=== PATIENT | female | born 1940 | race Caucasian/White ===

== ENCOUNTER → 2018-01-23 10:39 | Outpatient (CLI) | payer MEDICARE, SELFPAY ==
[2018-01-23 13:25] LABS: Anion Gap 10 (5-15); BUN 14 mg/dL (7-18); Calcium,Total 8.5 mg/dL (8.5-10.1); Chloride 103 mmol/L (98-107); Cholesterol 199 mg/dL (200); Creatinine, Serum 0.94 mg/dL (0.55-1.02); EST Glomerular Filtration Rate 62 mL/min (>60); Est Glom Filt Rate - Afr Amer 75 mL/min (>60); Glucose 83 mg/dL (74-106); High Density Lipoprotein 44 mg/dL; Potassium 3.5 mmol/L (3.5-5.1); Sodium Level 140 mmol/L (136-145); Triglycerides 209 mg/dL; Very Low Density Lipoprotein 42 mg/dL (5-40)
== END ==
PROVIDERS: Family Provider Family Medicine; PCP Family Medicine; Visit Provider Family Medicine
DX: I10 Essential (primary) hypertension (principal)
CPT/HCPCS: 36415; 80048; 80061

== ENCOUNTER 2018-04-01 10:22 | Emergency (ER) | payer MEDICARE, SELFPAY ==
[2018-04-01 10:23] VITALS: BP 159/93; PULSE 83; RESP 16; TEMP 36.8; O2SAT 98; BMI 24.2
--- NOTE | 2018-04-01 10:36 | ED.VISSUMM ---
- ER Visit Summary Date of Service: 04/01/18 Chief Complaint: Headache, shaky, weakness History of Present Illness: The patient is a 77 F who presents with all the above symptoms. She states that she woke up this morning with the symptoms. She took her blood pressure at home and it was 193/101. She took her home medication of losartan and went [facility]. She states she felt a little bit better but she is not back to 100%. She denies a cough or fever. She has been eating and drinking well. Denies any dysuria or any other symptoms. Her headache is now gone. Physical Examination: Vital signs reviewed. HEENT exam unremarkable. Heart is regular rate and rhythm without murmurs. Lungs are clear to auscultation. Abdomen is soft and nontender. Extremities reveal no edema. Skin exam normal. Neurologic exam normal. Test Results: Laboratory studies are unremarkable. Urinalysis negative Emergency Department Course and Treatment: Patient was given Tylenol. She states that she feels improved. I am unclear the etiology of her symptoms. She is ambulating significantly well and has no neurologic deficits. I feel she can be discharged home. She will call her PCP tomorrow for follow-up Treatment Plan: [] Disposition: Discharge Impression: Weakness This note was generated with Lib[employer] dictation software. It may contain incorrect words, spelling, and punctuation that were not noted in review of the chart prior to signing ED Disposition - Plan for ED Patient: Chief Complaint: Weakness Referrals: Kyara Odonnell MD [Primary Care Provider] -
[2018-04-01] MEDS: Acetaminophen 500 MG Tablet 1000 MG PO (10:46)
[2018-04-01 10:54] LABS: Color, Urine Yellow (Yellow); Glucose, Dipstick Normal (Normal); Ketone-Dipstick Negative (Negative); Leukocyte Esterase-Dipstick Negative /ul (Negative); Nitrite-Dipstick Negative (Negative); Occult Blood-Urine Negative /ul (Negative); Protein-Dipstick Negative (Negative); Urine Bilirubin Dipstick Negative (Negative); Urine Clarity Clear (Clear); Urine Urobilinogen Normal (Normal)
[2018-04-01 11:17] LABS: Anion Gap 7 (5-15); BUN 16 mg/dL (7-18); BUN/Creat Ratio 16.7 RATIO (10-20); Calcium,Total 8.6 mg/dL (8.5-10.1); Chloride 108 mmol/L (98-107); Creatinine, Serum 0.96 mg/dL (0.55-1.02); EST Glomerular Filtration Rate 60 mL/min (>60); Est Glom Filt Rate - Afr Amer 73 mL/min (>60); Estimated Creatinine Clearance 43.51 ml/min; Glucose 114 mg/dL (74-106); Sodium Level 141 mmol/L (136-145)
[2018-04-01 11:36] LABS: Absolute Lymphocyte Count 1.42 X10^3/ul (0.83-4.51); Absolute Neutrophil Count 4.3 X10^3/uL (2.0-7.7); Basophil# 0.03 X10^3/uL; Basophil% 0.5 % (0-1); Eosinophil# 0.06 X10^3/uL; Eosinophils% 0.9 % (0-5); Hemoglobin 12.9 g/dl (12.0-15.0); Lymphocyte # 1.42 X10^3/ul (4.0); Lymphocyte % 22.4 % (19-41); Mean Corp Hgb Conc 33.1 g/gl (32-36); Mean Corpuscular Hgb 30.5 pg (27.0-32.0); Mean Corpuscular Volume 92.2 fL (81-99); Mean Platelet Vol. 9.6 fl (6.2-12.0); Monocyte# 0.49 X10^3/uL; Monocyte% 7.7 % (0-10); Neutrophil # 4.34 X10^3/uL (2.7-7.7); Neutrophil % 68.3 % (47-70); POSITIVE COUNT NO; POSITIVE DIFFERENTIAL NO; POSITIVE MORPHOLOGY NO; Platelet Count 234 K/mm3 (150-450); RBC Distribution Width CV 13.2 % (11.6-14.6); RBC Distribution Width SD 43.9 fl (35.1-43.9); Red Blood Count 4.23 M/mm3 (4.2-5.4); White Blood Count 6.4 K/mm3 (4.4-11.0)
--- NOTE | 2018-04-01 11:48 | ED.DEP ---
ED Disposition - Plan for ED Patient: Disposition: Home or Assisted Living Chief Complaint: Weakness Instructions: ED Weakness [facility] Referrals: Kyara Odonnell MD [Primary Care Provider] -
[2018-04-01 11:54] VITALS: BP 117/67; PULSE 59; RESP 16; O2SAT 99
== END 2018-04-01 11:54 | disposition home or self-care (01) ==
PROVIDERS: Emergency Provider Emergency Medicine; Family Provider Family Medicine; PCP Family Medicine
DX: R53.1 Weakness (principal); I10 Essential (primary) hypertension
CPT/HCPCS: 36415; 80048; 81002; 85025; 99282

== ENCOUNTER → 2018-05-10 14:03 | Outpatient (CLI) | payer MEDICARE, SELFPAY ==
--- NOTE | 2018-05-10 14:07 | BI_ITS ---
MAMMOGRAPHY - BILATERAL SCREENING REASON FOR EXAM: Female, 77 years old. Routine annual screening examination. PERTINENT HISTORY: Aunt with breast cancer. TECHNIQUE: Digital bilateral breast sobia (3D mammographic acquisition) in the CC and MLO projections. 2-D mediolateral oblique (MLO) and craniocaudad (CC) views of both breasts were obtained. CAD: Full Field Digital Mammography with Computer Added Detection was performed. COMPARISON: Comparison is made with prior study dated March 17, 2017 and February 12, 2016. FINDINGS: Breast Composition: The breasts are heterogeneously dense, which may obscure small masses. There are no dominant masses or suspicious calcifications. Stable benign appearing bilateral calcifications. No other significant abnormalities are identified. There has been no significant change since the prior study. BI/SCREENING MAMM (CAD), BILAT IMPRESSION: Stable bilateral screening mammogram. Yearly follow-up mammogram recommended. (A) ASSESSMENT CATEGORY: BIRADS Category 2: Benign. A letter regarding these results will be sent to the patient by the facility within 30 days. Approximately 10% of breast cancers are not detected by mammography. A normal mammogram should not delay biopsy of a clinically suspicious abnormality. [id number] Electronically Signed: Aren Meadows MD at 13:47 EDT Tel [phone], Service support ,
--- NOTE | 2018-05-10 14:11 | BD_ITS ---
STUDY: DUAL ENERGY X-RAY ABSORPTIOMETRY / DXA REASON FOR EXAM: Female, 77 years old. Surgical menopause at age 56. 1200 mg of calcium or multivitamin. Moderate exercise. Family history. TECHNIQUE: Bone Mineral Density (BMD) measurements of lumbar spine and bilateral hips were obtained. COMPARISON: November 15, 2011 FINDINGS: Lumbar Spine (L1-L4): g/cm2 (1.097) / T-score (-0.6) / Z-score (1.2) Findings are suggestive of normal bone density with a low fracture risk. Left Femur Total: g/cm2 (0.881) / T-score (-1.0) / Z-score (0.7) Left Femoral Neck: g/cm2 (0.776) / T-score (-1.9) / Z-score (0.0) Right Femur Total: g/cm2 (0.933) / T-score (-0.6) / Z-score (1.2) Right Femoral Neck: g/cm2 (0.814) / T-score (-1.6) / Z-score (0.3) The T-Scores on the most recent prior examination were: Lumbar Spine (L1-L4): There has been improvement of bone density since the previous examination of 2.6%. Left Femur Total: There is decrease in bone mineral density of -3.6%. Right Femur Total: There is a decrease in bone marrow density of -3.1%. BD/Dexa Bone Density Study IMPRESSION: The patient is considered osteopenic as outlined below according to World [employer]rinivas[employer] Organization (WHO) criteria with a moderate fracture risk. There has been improvement of bone density of the lumbar spine since the previous examination with worsening bone mineral density of the bilateral hips. Reference Information: The T-score is the number of standard deviations above or below the standard which is normal for young adults at their peak bone mineral density. The World Health Organization (WHO) interprets the T-scores as follows: Above -1 Normal bone density Between -1 and -2.5 Osteopenia Equal to / or below -2.5 Osteoporosis As a practical clinical guideline, osteopenia may be graded as follows: Mild -1 through -1.5 Moderate -1.6 through -2.0 Severe -2.1 through -2.4 The Z-score is the number of standard deviations above or below age-matched controls. A Z-score of less than -1.5 would be considered abnormal. References: 1. NIH Osteoporosis and Related Bone Diseases http://www.osteo.org 2. International Society for Clinical Densitometry http://www.iscd.org 3. National Osteoporosis Foundation http://www.nof.org Electronically Signed: Celso Nice DO at 11:56 EDT Tel [phone], Service support ,
== END ==
PROVIDERS: Family Provider Family Medicine; PCP Family Medicine; Visit Provider Obstetrics & Gynecology
DX: Z12.31 Encounter for screening mammogram for malignant neoplasm of breast (principal); Z78.0 Asymptomatic menopausal state
CPT/HCPCS: 77063; 77067; 77080

== ENCOUNTER → 2019-01-08 10:03 | Outpatient (CLI) | payer MEDICARE, SELFPAY ==
[2019-01-08 12:22] LABS: Absolute Neutrophil Count 3.8 X10^3/uL (2.0-7.7); Basophil# 0.03 X10^3/uL; Basophil% 0.5 % (0-1); Eosinophils% 1.6 % (0-5); Hematocrit 41.4 % (37-47); Hemoglobin 13.3 g/dl (12.0-15.0); Lymphocyte % 27.2 % (19-41); Mean Corp Hgb Conc 32.1 g/gl (32-36); Mean Corpuscular Hgb 30.4 pg (27.0-32.0); Mean Corpuscular Volume 94.7 fL (81-99); Mean Platelet Vol. 10.1 fl (6.2-12.0); Monocyte# 0.57 X10^3/uL; Monocyte% 9.1 % (0-10); Neutrophil # 3.84 X10^3/uL (2.7-7.7); Neutrophil % 61.4 % (47-70); Platelet Count 247 K/mm3 (150-450); RBC Distribution Width CV 13.2 % (11.6-14.6); Red Blood Count 4.37 M/mm3 (4.2-5.4); White Blood Count 6.3 K/mm3 (4.4-11.0)
[2019-01-08 12:28] LABS: POSITIVE COUNT NO; POSITIVE DIFFERENTIAL NO; POSITIVE MORPHOLOGY NO
[2019-01-08 13:24] LABS: ALB/GLOB Ratio 1.4 RATIO (0.9-2.4); AST(SGOT) 18 U/L (15-37); Alanine Aminotransfer ALT/SGPT 25 U/L (13-56); Albumin, Serum 4.1 g/dL (3.2-5.0); Alkaline Phosphatase 78 U/L (45-117); Anion Gap 12 (5-15); BUN 19 mg/dL (7-18); BUN/Creat Ratio 18.6 RATIO (10-20); Calcium,Total 9.2 mg/dL (8.5-10.1); Chloride 106 mmol/L (98-107); Creatinine, Serum 1.02 mg/dL (0.55-1.02); EST Glomerular Filtration Rate 56 mL/min (>60); Est Glom Filt Rate - Afr Amer 68 mL/min (>60); Glucose 91 mg/dL (74-106); Protein, Total 7.1 g/dL (6.4-8.2); Sodium Level 144 mmol/L (136-145); Thyroid Stim Hormone (TSH) 1.42 uIU/mL (0.358-3.74)
== END ==
PROVIDERS: Family Provider Family Medicine; PCP Family Medicine; Visit Provider Family Medicine
DX: R53.81 Other malaise (principal); R53.83 Other fatigue
CPT/HCPCS: 36415; 80053; 84443; 85025

== ENCOUNTER → 2019-06-06 14:25 | Outpatient (CLI) | payer MEDICARE, SELFPAY ==
--- NOTE | 2019-06-06 14:28 | BI_ITS ---
MAMMOGRAPHY - BILATERAL SCREENING REASON FOR EXAM: Female, 78 years old. Routine annual screening examination. PERTINENT HISTORY: Aunt with breast cancer. TECHNIQUE: Digital bilateral breast gregory (3D mammographic acquisition) in the CC and MLO projections. 2-D mediolateral oblique (MLO) and craniocaudad (CC) views of both breasts were obtained. CAD: Full Field Digital Mammography with Computer Added Detection was performed. COMPARISON: Comparison is made with prior examination dated May 10, 2018 and March 17, 2017. FINDINGS: Breast Composition: The breasts are heterogeneously dense, which may obscure small masses. There are no dominant masses or suspicious calcifications. Stable benign-appearing scattered bilateral calcifications. No other significant abnormalities are identified. There has been no significant change since the prior study. BI/SCREEN MAMM (CAD) W/GREGORY BILAT IMPRESSION: Stable bilateral screening mammogram. Yearly follow-up mammogram recommended. (A) ASSESSMENT CATEGORY: BIRADS Category 2: Benign. A letter regarding these results will be sent to the patient by the facility within 30 days. Approximately 10% of breast cancers are not detected by mammography. A normal mammogram should not delay biopsy of a clinically suspicious abnormality. [id number] Electronically Signed: Aren Meadows, at 15:27 EDT , Service support ,
== END ==
PROVIDERS: Family Provider Family Medicine; PCP Family Medicine; Referring Provider Obstetrics & Gynecology; Visit Provider Obstetrics & Gynecology
DX: Z12.31 Encounter for screening mammogram for malignant neoplasm of breast (principal)
CPT/HCPCS: 77063; 77067

== ENCOUNTER → 2019-10-01 09:25 | Outpatient (CLI) | payer MEDICARE, SELFPAY ==
--- NOTE | 2019-10-01 09:28 | RAD_ITS ---
STUDY: X-RAY CHEST REASON FOR EXAM: Female, 78 years old. Hypoxia, dyspnea TECHNIQUE: PA and lateral views of the chest. COMPARISON: Prior study of 02/15/2014 FINDINGS: There is a calcified granuloma of the right lung base. There is no demonstrated pleural abnormality. Normal size heart. Normal mediastinum and laura. Normal visualized pulmonary arteries. There are calcified plaques of the aortic arch. There are diffuse degenerative changes of the visualized thoracic spine. Normal visualized ribs, clavicles, and shoulders. There is no demonstrated abnormality of the visualized soft tissue structures of the upper abdomen. RAD/Chest PA and Lateral IMPRESSION: Calcified granuloma of the right lung base. Calcified plaques of the aortic arch. Degenerative changes of the thoracic spine. No acute cardiopulmonary disease process is seen. Electronically Signed: Carlos Alberto Diamond MD at 22:40 EST , Service support ,
== END ==
PROVIDERS: Family Provider Family Medicine; PCP Family Medicine; Referring Provider Internal Medicine Pulmonary Disease; Visit Provider Internal Medicine Pulmonary Disease
DX: R09.02 Hypoxemia (principal); R06.00 Dyspnea, unspecified
CPT/HCPCS: 71046

== ENCOUNTER → 2019-11-18 07:51 | Outpatient (CLI) | payer MEDICARE, SELFPAY ==
[2019-11-18 08:33] LABS: Anion Gap 6 (5-15); Chloride 108 mmol/L (98-107); Potassium 3.5 mmol/L (3.5-5.1); Sodium Level 142 mmol/L (136-145)
== END ==
PROVIDERS: Family Provider Family Medicine; PCP Family Medicine; Referring Provider Internal Medicine Pulmonary Disease; Visit Provider Internal Medicine Pulmonary Disease
DX: G47.10 Hypersomnia, unspecified (principal); R09.02 Hypoxemia
CPT/HCPCS: 36415; 80051

== ENCOUNTER → 2020-03-25 11:29 | Outpatient (CLI) | payer MEDICARE, SELFPAY ==
[2020-03-25 15:37] LABS: Absolute Lymphocyte Count 1.76 X10^3/uL (0.83-4.51); Absolute Neutrophil Count 3.4 X10^3/uL (2.0-7.7); Basophil# 0.03 X10^3/uL; Basophil% 0.5 % (0-1); Eosinophils% 1.7 % (0-5); Hematocrit 41.2 % (37-47); Hemoglobin 13.2 g/dL (12.0-15.0); Lymphocyte # 1.76 X10^3/ul (4.0); Lymphocyte % 30.1 % (19-41); Mean Corpuscular Hgb 30.5 pg (27.0-32.0); Mean Corpuscular Volume 95.2 fL (81-99); Mean Platelet Vol. 10.2 fl (6.2-12.0); Monocyte# 0.51 X10^3/uL; Monocyte% 8.7 % (0-10); NRBC Flagged by Analyzer 0 % (0-5); Neutrophil # 3.42 X10^3/uL (2.7-7.7); Neutrophil % 58.7 % (47-70); Platelet Count 237 K/mm3 (150-450); RBC Distribution Width CV 13.1 % (11.6-14.6); Red Blood Count 4.33 M/mm3 (4.2-5.4); White Blood Count 5.8 K/mm3 (4.4-11.0)
[2020-03-25 15:46] LABS: Anion Gap 4 (5-15); BUN 16 mg/dL (7-18); BUN/Creat Ratio 18.1 RATIO (10-20); Calcium,Total 9.1 mg/dL (8.5-10.1); Chloride 108 mmol/L (98-107); Creatinine, Serum 0.89 mg/dL (0.55-1.02); EST Glomerular Filtration Rate 66 mL/min (>60); Est Glom Filt Rate - Afr Amer 79 mL/min (>60); Glucose 87 mg/dL (74-106); Magnesium 2.4 mg/dL (1.6-2.6); Potassium 3.9 mmol/L (3.5-5.1); Sodium Level 141 mmol/L (136-145)
== END ==
PROVIDERS: PCP Family Medicine; Visit Provider Family Medicine
DX: K21.9 Gastro-esophageal reflux disease without esophagitis (principal); I10 Essential (primary) hypertension
CPT/HCPCS: 36415; 80048; 83735; 85025

== ENCOUNTER → 2020-06-11 14:07 | Outpatient (CLI) | payer MEDICARE, SELFPAY ==
--- NOTE | 2020-06-11 14:09 | BI_ITS ---
MAMMOGRAPHY - BILATERAL SCREENING REASON FOR EXAM: Female, 79 years old. Routine annual screening examination. PERTINENT HISTORY: Aunt with breast cancer. TECHNIQUE: Digital bilateral breast gregory (3D mammographic acquisition) in the CC and MLO projections. 2-D mediolateral oblique (MLO) and craniocaudad (CC) views of both breasts were obtained. CAD: Full Field Digital Mammography with Computer Added Detection was performed. COMPARISON: Comparison is made with prior examination dated June 06, 2019 and May 10, 2018. FINDINGS: Breast Composition: The breasts are heterogeneously dense, which may obscure small masses. There are no dominant masses or suspicious calcifications. Stable scattered bilateral microcalcifications. No other significant abnormalities are identified. There has been no significant change since the prior study. BI/SCREEN MAMM (CAD) W/GREGORY BILAT IMPRESSION: Stable bilateral screening mammogram. Yearly follow-up mammogram recommended. (A) ASSESSMENT CATEGORY: BIRADS Category 2: Benign. A letter regarding these results will be sent to the patient by the facility within 30 days. Approximately 10% of breast cancers are not detected by mammography. A normal mammogram should not delay biopsy of a clinically suspicious abnormality. [id number] Electronically Signed: Aren Meadows, at 14:57 EDT , Service support ,
== END ==
PROVIDERS: PCP Family Medicine; Referring Provider Family Medicine; Visit Provider Family Medicine
DX: Z12.31 Encounter for screening mammogram for malignant neoplasm of breast (principal)
CPT/HCPCS: 77063; 77067

== ENCOUNTER → 2020-09-24 12:22 | Outpatient (CLI) | payer MEDICARE, SELFPAY ==
[2020-09-24 15:24] LABS: Anion Gap 6 (5-15); BUN 24 mg/dL (7-18); BUN/Creat Ratio 22.9 RATIO (10-20); Calcium,Total 8.8 mg/dL (8.5-10.1); Chloride 107 mmol/L (98-107); Creatinine, Serum 1.05 mg/dL (0.55-1.02); EST Glomerular Filtration Rate 54 mL/min (>60); Est Glom Filt Rate - Afr Amer 65 mL/min (>60); Glucose 112 mg/dL (74-106); Potassium 3.7 mmol/L (3.5-5.1); Sodium Level 142 mmol/L (136-145)
== END ==
PROVIDERS: PCP Family Medicine; Referring Provider Family Medicine; Visit Provider Family Medicine
DX: I10 Essential (primary) hypertension (principal)
CPT/HCPCS: 36415; 80048

== ENCOUNTER → 2021-02-23 15:05 | Outpatient (CLI) | payer MEDICARE, SELFPAY ==
[2021-02-23 17:31] LABS: Absolute Lymphocyte Count 1.69 X10^3/uL (0.83-4.51); Absolute Neutrophil Count 4.2 X10^3/uL (2.0-7.7); Basophil# 0.05 X10^3/uL; Basophil% 0.7 % (0-1); Eosinophil# 0.17 X10^3/uL; Eosinophils% 2.5 % (0-5); Hematocrit 41.8 % (37-47); Hemoglobin 13.4 g/dL (12.0-15.0); Lymphocyte # 1.69 X10^3/ul (4.0); Lymphocyte % 24.7 % (19-41); Mean Corp Hgb Conc 32.1 g/dL (32-36); Mean Corpuscular Hgb 30.2 pg (27.0-32.0); Mean Corpuscular Volume 94.4 fL (81-99); Mean Platelet Vol. 10.1 fl (6.2-12.0); Monocyte# 0.65 X10^3/uL; Monocyte% 9.5 % (0-10); NRBC Flagged by Analyzer 0 % (0-5); Neutrophil # 4.24 X10^3/uL (2.7-7.7); Neutrophil % 62.2 % (47-70); Platelet Count 302 K/mm3 (150-450); RBC Distribution Width CV 13.1 % (11.6-14.6); RBC Distribution Width SD 45.7 fl (35.1-43.9); Red Blood Count 4.43 M/mm3 (4.2-5.4); White Blood Count 6.8 K/mm3 (4.4-11.0)
[2021-02-23 18:21] LABS: ALB/GLOB Ratio 1.1 RATIO (0.9-2.4); AST(SGOT) 24 U/L (15-37); Alanine Aminotransfer ALT/SGPT 23 U/L (13-56); Albumin, Serum 3.9 g/dL (3.2-5.0); Alkaline Phosphatase 84 U/L (45-117); Anion Gap 5 (5-15); BUN 22 mg/dL (7-18); BUN/Creat Ratio 17.6 RATIO (10-20); Calcium,Total 8.9 mg/dL (8.5-10.1); Chloride 104 mmol/L (98-107); Creatinine, Serum 1.25 mg/dL (0.55-1.02); EST Glomerular Filtration Rate 44 mL/min (>60); Est Glom Filt Rate - Afr Amer 53 mL/min (>60); Ferritin 188 ng/mL (8-252); Globulin 3.7 g/dL (2.2-4.2); Glucose 135 mg/dL (74-106); Potassium 3.7 mmol/L (3.5-5.1); Protein, Total 7.6 g/dL (6.4-8.2); Sodium Level 137 mmol/L (136-145)
== END ==
PROVIDERS: PCP Family Medicine; Referring Provider Family Medicine; Visit Provider Family Medicine
DX: R53.81 Other malaise (principal); R53.83 Other fatigue; M25.50 Pain in unspecified joint
CPT/HCPCS: 36415; 80053; 82728; 84443; 85025

== ENCOUNTER → 2021-03-02 07:52 | Outpatient (CLI) | payer MEDICARE, SELFPAY ==
--- NOTE | 2021-03-02 07:55 | ECHOD_ITS ---
Reason For Study: [facility] Procedure This was a 2D Doppler, Color Flow transthoracic echocardiogram. The study was technically difficult. Respiratory interference. Exam performed in department. Left Ventricle Normal LV size. Left ventricular systolic function is normal. The estimated ejection fraction is 65 %. No evidence for diastolic dysfunction. No regional wall motion abnormalities noted. Right Ventricle Normal RV size. Normal systolic function. Atria Normal left atrium. Normal right atrium. No doppler evidence for ASD. Mitral Valve There is moderate mitral annular calcification. Extension of the mitral annular calcification onto the base of the posterior mitral valve leaflet. Mild diffuse mitral valve thickening. The mitral valve chordae are thickened and/or calcified. Trivial mitral valve insufficiency. Tricuspid Valve Normal tricuspid valve. Mild tricuspid valve insufficiency. Unable to estimate RV systolic pressure due to insufficient tricuspid regurgitant envelope. Aortic Valve Trisinus/trileaflet aortic valve. Mild diffuse aortic valve thickening. Mild focal aortic valve calcification. Mild aortic stenosis. Pulmonic Valve The pulmonic valve is not well visualized. Mild (1+) pulmonic valve insufficiency. Great Vessels Normal sized aortic root. Pericardium/Pleural No pericardial effusion. MMode/2D Measurements & Calculations LVIDd: 4.2 cm IVSd: 1.1 cm LVOT diam: 2.1 cm LVIDs: 2.5 cm LVPWd: 1.0 cm LVOT area: 3.5 cm2 RVDd: 2.7 cm FS: 40.6 % Ao root diam: 3.0 cm LAV(MOD-bp): 42.1 ml LA A4 area: 13.3 cm2 LA dimension: 2.8 cm LAV(MOD-bp) Indexed: 28.6 ml/m2 LAV(MOD-sp2): 43.5 ml LAV(MOD-sp4): 35.0 ml RA A4 area: 8.1 cm2 Time Measurements MV dec time: 0.31 sec Doppler Measurements & Calculations MV E max sorin: 66.2 cm/sec Lat Peak E' Sorin: 6.5 cm/sec Med Peak E' Sorin: 5.5 cm/sec MV A max sorin: 119.1 cm/sec E/E' lat: 10.2 E/E' med: 12.1 MV E/A: 0.56 Ao V2 max: 196.6 cm/sec LV V1 max: 85.1 cm/sec SV(LVOT): 46.4 ml Ao max P.5 mmHg LV V1 max P.9 mmHg Ao V2 mean: 138.9 cm/sec LV V1 mean P.5 mmHg Ao mean P.4 mmHg LV V1 mean: 58.3 cm/sec Ao V2 VTI: 36.6 cm LV V1 VTI: 13.4 cm RANDY(I,D): 1.3 cm2 RANDY(V,D): 1.5 cm2 PA V2 max: 88.6 cm/sec PI dec slope: 230.6 cm/sec2 ECHO/Echo Complete Interpretation Summary The study was technically difficult. Left ventricular systolic function is normal. The estimated ejection fraction is 65 %. There is moderate mitral annular calcification. Extension of the mitral annular calcification onto the base of the posterior mi tral valve leaflet. Mild diffuse mitral valve thickening. The mitral valve chordae are thickened and/or calcified. Trivial mitral valve insufficiency. Mild tricuspid valve insufficiency. Mild aortic stenosis. Mild (1+) pulmonic valve insufficiency. Unable to estimate RV systolic pressure due to insufficient tricuspid regurgita nt envelope. No evidence for diastolic dysfunction. 2D echocardiographic images demonstrate echolucencies potentially c/w hepatic c ysts - consider further evaluation with RUQ U/S if clinically indicated. Ordering Physician: Kyara Odonnell Performed By: Nakia Diaz RDCS, RVT
== END ==
PROVIDERS: PCP Family Medicine; Visit Provider Family Medicine
DX: R06.00 Dyspnea, unspecified (principal)
CPT/HCPCS: 93306

== ENCOUNTER → 2021-03-05 10:57 | Outpatient (CLI) | payer MEDICARE, SELFPAY ==
[2021-03-05 14:08] LABS: 24HR. Urine Creatinine 0.69 g/24 HR (0.70-1.90)
== END ==
PROVIDERS: PCP Family Medicine; Referring Provider Family Medicine; Visit Provider Family Medicine
DX: R53.81 Other malaise (principal); R53.83 Other fatigue
CPT/HCPCS: 81050; 82570

== ENCOUNTER → 2021-03-09 08:26 | Outpatient (CLI) | payer MEDICARE, SELFPAY ==
[2021-03-17 07:07] LABS: Dopamine, UR 77 ug/L (Undefined); Epinephrine, 24Ur 2 ug/24 hr (0-20); Epinephrine, Ur 1 ug/L (Undefined); Norepinephrine, 24Ur 23 ug/24 hr (0-135); Norepinephrine, Ur 12 ug/L (Undefined)
[2021-03-17 12:17] LABS: Dopamine, 24Ur 148 ug/24 hr (0-510)
== END ==
PROVIDERS: PCP Family Medicine; Referring Provider Family Medicine; Visit Provider Family Medicine
DX: R53.81 Other malaise (principal)
CPT/HCPCS: 81050; 82384

== ENCOUNTER → 2021-03-11 06:26 | Outpatient (CLI) | payer MEDICARE, SELFPAY ==
--- NOTE | 2021-03-11 13:04 | STRESSREP ---
Stress Test Report Exercise myocardial perfusion stress test. 80-year-old lady with a history of chest pain pain Stress protocol: Resting KG demonstrates normal sinus rhythm with a rate of 70 bpm normal intervals are noted resting blood pressure is 118/86 mmHg. The patient exercised according to regular Jignesh protocol for a total duration of 6 minutes and 14 seconds. The maximum heart rate attained was 133 bpm which was 93% of max impacted heart rate the maximum workload was 7.3 metabolic equivalents. At rest there were no ST or T wave changes noted to suggest ischemia and at peak exercise no ST or T wave changes were noted to suggest ischemia. No clinical angina was noted. Myocardial perfusion protocol. 11.5 mCi of technetium 99m sestamibi was injected at rest. The patient exercised according to regular Jignesh protocol. At peak exercise 31.8 mCi of technetium 99m sestamibi was injected stress images were obtained stress and rest images were reconstructed and compared in the short axis vertical long horizontal long axis. Gated images were also obtained Perfusion SPECT analysis: Review of the stress images demonstrated normal uptake of tracer noted in all areas of the myocardium. The resting images similar demonstrated normal uptake of tracer noted in all areas of the myocardium. No areas of reversibility were noted to suggest ischemia and no previous infarct was noted. Gated SPECT analysis: The gated ejection fraction is over 55%. Conclusion: Normal exercise myocardial perfusion stress test at a moderate workload. Preserved ejection fraction.
== END ==
PROVIDERS: PCP Family Medicine; Referring Provider Family Medicine; Visit Provider Family Medicine
DX: R53.81 Other malaise (principal); R53.83 Other fatigue; R06.00 Dyspnea, unspecified
CPT/HCPCS: 78452; 93017; A9500

== ENCOUNTER → 2021-06-15 14:40 | Outpatient (CLI) | payer MEDICARE, SELFPAY ==
[2021-06-20 08:05] LABS: EBV-VCA IgG > 600.0 U/mL (0.0-17.9)
== END ==
PROVIDERS: PCP Family Medicine; Visit Provider Family Medicine
DX: R53.81 Other malaise (principal); R53.83 Other fatigue
CPT/HCPCS: 36415; 86664; 86665

== ENCOUNTER → 2021-06-22 07:26 | Outpatient (CLI) | payer MEDICARE, SELFPAY ==
--- NOTE | 2021-06-22 07:28 | BI_ITS ---
MAMMOGRAPHY - BILATERAL SCREENING REASON FOR EXAM: Female, 80 years old. Routine annual screening examination. PERTINENT HISTORY: Aunt with breast cancer. TECHNIQUE: Digital bilateral breast sobia (3D mammographic acquisition) in the CC and MLO projections. 2-D mediolateral oblique (MLO) and craniocaudad (CC) views of both breasts were obtained. CAD: Full Field Digital Mammography with Computer Added Detection was performed. COMPARISON: Comparison is made with prior study dated 06/11/2020 and 06/06/2019. FINDINGS: Breast Composition: The breasts are heterogeneously dense, which may obscure small masses. Focal area of architectural distortion is seen in the superior aspect of the right breast on the mediolateral oblique view. The patient will be recalled for additional views including 90 degree lateral and compression spot views of the right breast. Stable scattered bilateral microcalcifications. No focal cluster is seen. Stable benign-appearing bilateral axillary No other significant abnormalities are identified. BI/SCREENING MAMM (CAD), BILAT IMPRESSION: Focal area of architectural distortion seen in the mediolateral oblique view of the right breast as described. The patient will be recalled for additional views of the right breast. Recall Side: Right Breast ASSESSMENT CATEGORY: BIRADS Category 0: Incomplete. Need additional imaging evaluation. A letter regarding these results will be sent to the patient by the facility within 30 days. Approximately 10% of breast cancers are not detected by mammography. A normal mammogram should not delay biopsy of a clinically suspicious abnormality. [id number] Electronically Signed: Aren Meadows MD at 8:48 EDT , Service support ,
== END ==
PROVIDERS: PCP Family Medicine; Referring Provider Family Medicine; Visit Provider Family Medicine
DX: Z12.31 Encounter for screening mammogram for malignant neoplasm of breast (principal)
CPT/HCPCS: 77067

== ENCOUNTER → 2021-06-23 08:49 | Outpatient (CLI) | payer MEDICARE, SELFPAY ==
--- NOTE | 2021-06-23 08:52 | BI_ITS ---
MAMMOGRAPHY - UNILATERAL DIAGNOSTIC: RIGHT BREAST REASON FOR EXAM: Female, 80 years old. Abnormal screening mammogram. PERTINENT HISTORY: Aunt with breast cancer. TECHNIQUE: 90 degree compression view of the right breast was obtained. CAD: Full Field Digital Mammography with Computer Added Detection was performed. COMPARISON: Comparison is made with prior mammogram dated 06/22/2021. FINDINGS: Breast Composition: The breasts are heterogeneously dense, which may obscure small masses. There are no dominant masses or suspicious calcifications. The focal area of architectural distortion corresponds to superimposition of tissues. No other significant abnormalities are identified. BI/DIAG MAMM W/CAD, UNILAT IMPRESSION: Stable unilateral diagnostic mammogram. One year follow-up mammogram recommended. (A) ASSESSMENT CATEGORY: BIRADS Category 2: Benign. A letter regarding these results will be sent to the patient by the facility within 30 days. Approximately 10% of breast cancers are not detected by mammography. A normal mammogram should not delay biopsy of a clinically suspicious abnormality. Electronically Signed: Aren Meadows MD at 9:39 EDT , Service support ,
== END ==
PROVIDERS: PCP Family Medicine; Referring Provider Family Medicine; Visit Provider Family Medicine
DX: R92.8 Other abnormal and inconclusive findings on diagnostic imaging of breast (principal)
CPT/HCPCS: 77065

== ENCOUNTER 2021-08-09 07:07 | Emergency (ER) | payer MEDICARE, SELFPAY ==
[2021-08-09 07:08] VITALS: BP 172/103; PULSE 117; RESP 17; TEMP 36.1; O2SAT 95; BMI 24.2
--- NOTE | 2021-08-09 07:24 | EKG12_ITS ---
Test Reason : HTN Blood Pressure : / mmHG Vent. Rate : 073 BPM Atrial Rate : 073 BPM P-R Int : 150 ms QRS Dur : 114 ms QT Int : 408 ms P-R-T Axes : 071 -70 031 degrees QTc Int : 449 ms Normal sinus rhythm Left axis deviation Incomplete left bundle branch block Abnormal ECG Confirmed by CHANTELLE DRIVER, ERMA ([id number]), website/blog editor CHARO VALDEZ ([id number]) on 08/11/2021 10:14:55 AM Referred By: CIARA Confirmed By:ERMA LOCKHART MD
--- NOTE | 2021-08-09 07:24 | EDS_ITS ---
HPI History of Present Illness Chief Complaint: Hypertension Informant: patient Onset/Context/Timing Onset: Today Current Severity: Mild Maximum Severity: Mild Narrative Narrative: Patient presents due to concern for hypertension. Patient states that she has not felt well the last day and a half. She describes feeling as if her stomach is upset. She denies chest pain or shortness of breath. She denies headache. She states this morning she had some tingling in her face that is now completely resolved. She checked her blood pressure at that time and noted it to be 173/112. Patient does take losartan in the evening and hydrochlorothiazide in the morning for blood pressure. She did take her morning meds. She states currently she feels better. [facility] Medical History HLD (hyperlipidemia) HTN (hypertension) Home Medications aspirin 81 mg PO QHS 02/15/14 [History Last Taken 11/29/17] calcium citrate-vitamin D3 1 ea PO BID 02/15/14 [History Last Taken Unknown] stephanie nqre-xzmqvqyv-dobzerjhe ac [[place] Oil] 1,000 mg PO BID 02/15/14 [History Last Taken 11/29/17] flaxseed oil-omega 3,6,9 1 ea PO BID 02/15/14 [History Last Taken 11/29/17] glucosamine sulfate 2KCl [Glucosamine Relief] 1,000 mg PO BID 02/15/14 [History Last Taken 11/29/17] multivitamin with folic acid [Thera] 1 tab PO DAILY 02/15/14 [History Last Taken 11/29/17] niacin 500 mg PO BID 02/15/14 [History Last Taken 11/29/17] vitamin E (dl, acetate) 400 units PO BID 02/15/14 [History Last Taken 11/29/17] ondansetron 4 mg PO Q8H PRN PRN #10 tab 12/09/16 [Rx Last Taken 11/30/17] cyanocobalamin (vitamin B-12) 1,000 mcg PO DAILY 11/30/17 [History Last Taken 11/29/17] lorazepam 0.5 mg PO TID PRN PRN 11/30/17 [History Last Taken Unknown] losartan 1 tab PO DAILY 11/30/17 [History Last Taken 11/28/17] hydrochlorothiazide 12.5 mg PO DAILY #30 days 12/03/17 [Rx Last Taken Unknown] Allergy/AdvReac Type Severity Reaction Status Date / Time Penicillins Allergy Unknown Verified 08/09/21 07:09 Social History Smoking Status: Never smoker ROS ROS ED Constitutional Constitutional ED: Denies chills or fever(s) Eyes Eyes: Denies change in vision ENT ENT ED: Denies sore throat Cardiovascular Cardiovascular: Denies chest pain Respiratory/Chest Respiratory/Chest: Denies cough or dyspnea Gastrointestinal Gastrointestinal: Reports abdominal pain; Denies diarrhea, nausea or vomiting Genitourinary Genitourinary ED: Denies dysuria Musculoskeletal Musculoskeletal: Denies back pain Integumentary Denies rash Neurologic Neurologic: Reports paresthesias; Denies headache(s) or weakness Allergic/Immunologic Allergic/Immunologic ED: Denies urticaria EXAM Physical Exam Const Vital Signs: 08/09/21 07:08 08/09/21 07:42 08/09/21 07:44 Temperature 96.9 F L Temperature Source Temporal Pulse Rate 117 H Respiratory Rate 17 Respiratory Pattern Normal Blood Pressure 172/103 H 134/89 H Blood Pressure Mean 126 104 Pulse Ox 95 Oxygen Delivery Method Room Air Positive well nourished and well developed General Appearance ED: well developed HEENT Reports normocephalic and head/scalp atraumatic Eyes PERRL and EOMs intact bilaterally Neck supple Chest Wall inspection of chest normal and palpation of chest normal Resp normal respiratory effort and clear to auscultation bilaterally Cardio regular rate and regular rhythm GI normal to inspection, nondistended, normoactive bowel sounds Palpation: soft Back/Spine no CVA tenderness Extremity normal to inspection Neuro oriented x3 and no sensory deficits noted Sensorium / Orientation: alert Motor Exam: strength 5/5 throughout Psych mental status grossly normal Skin no rashes or lesions noted MDM MDM MDM Narrative Medical decision making narrative: Patient's blood pressure at time of my examination was 131/76. Patient states she has no complaints at this time. EKG was obtained and patient was observed for multiple blood pressure readings. EKG Initial EKG: Attestation: I personally reviewed and interpreted this EKG as follows: Interpretation: Sinus Rhythm (Sinus at 73 with no acute ischemia.) Treatment and Re-Evaluation Comments:: On repeat evaluation patient is resting comfortably with no complaints. She had multiple blood pressure readings in the 120s and 130s. At this time she will be discharged home to monitor her blood pressure. She was encouraged to return if symptoms worsen or she has any concerns. I did ask her to keep a journal of her blood pressures for the next several days to review with her doctor. Discharge Plan Triage Chief Complaint: Hypertension ED Provider: Cynthia Beckford Dx/Rx/DC Orders Clinical Impression: Hypertension Instructions: ED Hypertension, Established Prescriptions: No Action niacin 500 MG Tab.Er.24h 500 mg PO BID RF: 0 aspirin 81 MG Tab.Chew 81 mg PO QHS RF: 0 calcium citrate-vitamin D3 1 EACH tablet 1 ea PO BID RF: 0 stephanie ztjw-tvkeromd-riwyzolqd ac [[place]] 1,000 MG capsule 1,000 mg PO BID RF: 0 vitamin E (dl, acetate) 400 UNITS capsule 400 units PO BID RF: 0 glucosamine sulfate 2KCl [Glucosamine Relief] 500 MG capsule 1,000 mg PO BID RF: 0 multivitamin with folic acid [Thera] 1 TABLET tablet 1 tab PO DAILY RF: 0 flaxseed oil-omega 3,6,9 1 EACH capsule 1 ea PO BID RF: 0 ondansetron 4 MG tablet 4 mg PO Q8H PRN PRN (Reason: Nausea) Qty: 10 RF: 0 losartan 50 MG tablet 1 tab PO DAILY RF: 0 lorazepam 0.5 MG tablet 0.5 mg PO TID PRN PRN (Reason: Anxiety) RF: 0 cyanocobalamin (vitamin B-12) 1,000 MCG capsule 1,000 mcg PO DAILY RF: 0 hydrochlorothiazide 25 MG tablet 12.5 mg PO DAILY Qty: 30 RF: 0 Primary Care Provider: Kyara Odonnell Referrals: Kyara Odonnell MD [Primary Care Provider] - 1-2 Weeks Disposition Disposition: Home, Self Care
[2021-08-09 07:42] VITALS: BP 134/89
[2021-08-09 08:13] VITALS: BP 133/83
[2021-08-09 08:19] VITALS: BP 118/67; PULSE 62; RESP 15; O2SAT 98
== END 2021-08-09 08:19 | disposition home or self-care (01) ==
PROVIDERS: Emergency Provider Emergency Medicine; PCP Family Medicine
DX: I10 Essential (primary) hypertension (principal); E78.5 Hyperlipidemia, unspecified; I44.7 Left bundle-branch block, unspecified; Z79.82 Long term (current) use of aspirin
CPT/HCPCS: 93005; 99282

== ENCOUNTER → 2021-08-28 07:48 | Outpatient (CLI) | payer MEDICARE, SELFPAY | PROVIDERS: PCP Family Medicine; Referring Provider Family Medicine; Visit Provider Family Medicine | DX: U07.1 COVID-19 (principal); J06.9 Acute upper respiratory infection, unspecified | CPT/HCPCS: 87635; U0005; U0003 ==

== ENCOUNTER 2022-02-23 12:08 | Outpatient (CLI) | payer MEDICARE, SELFPAY ==
[2022-02-23 15:47] LABS: AST(SGOT) 27 U/L (15-37); Alanine Aminotransfer ALT/SGPT 26 U/L (13-56); Anion Gap 8 (5-15); BUN 17 mg/dL (7-18); BUN/Creat Ratio 18.8 RATIO (10-20); Calcium,Total 9.2 mg/dL (8.5-10.1); Chloride 106 mmol/L (98-107); Cholesterol 224 mg/dL (200); EST Glomerular Filtration Rate 64 mL/min (>60); Est Glom Filt Rate - Afr Amer 77 mL/min (>60); Glucose 102 mg/dL (74-106); High Density Lipoprotein 44 mg/dL; Potassium 4.1 mmol/L (3.5-5.1); Sodium Level 139 mmol/L (136-145); Thyroid Stim Hormone (TSH) 1.76 uIU/mL (0.358-3.74); Triglycerides 291 mg/dL; Very Low Density Lipoprotein 58 mg/dL (5-40)
[2022-02-23 16:04] LABS: Vitamin D,25 Hydroxy 47.5 ng/mL
== END 2022-02-23 23:59 | disposition home or self-care (01) ==
LOC: MFPLAB 12:10
PROVIDERS: PCP Family Medicine; Referring Provider Family Medicine; Visit Provider Family Medicine
DX: I10 Essential (primary) hypertension (principal); E55.9 Vitamin D deficiency, unspecified; E78.5 Hyperlipidemia, unspecified; R00.0 Tachycardia, unspecified
CPT/HCPCS: 36415; 80048; 80061; 82306; 84443; 84450; 84460

== ENCOUNTER → 2022-06-28 | Outpatient (CLI) | payer MEDICARE, SELFPAY ==
--- NOTE | 2022-06-28 08:51 | BI_ITS ---
MAMMOGRAPHY - BILATERAL SCREENING 3-D TOMOSYNTHESIS REASON FOR EXAM: Female, 81 years old. Routine screening PERTINENT HISTORY: Aunt with breast cancer.. TECHNIQUE: 2-D mammograms and 3-D Tomosynthesis of the breast (s) were performed. CAD was performed. COMPARISON: 06/11/2020 FINDINGS: The breast composition is heterogeneously dense that can obscure small breast masses. Scattered benign calcifications are seen. No dense spiculated masses or suspicious microcalcifications are identified. No architectural distortion is identified. There is no skin thickening or retraction. There has been no significant change since the prior study. BI/SCRN MAMM (CAD)W/GREGORY BILAT IMPRESSION: No mammographic signs of malignancy. Routine yearly mammograms recommended. ASSESSMENT CATEGORY: BIRADS Category 2: Benign. A letter regarding these results will be sent to the patient by the facility within 30 days. FOLLOW UP RECOMMENDATION: Yearly follow up mammogram recommended. (A) Approximately 10% of breast cancers are not detected by mammography. A normal mammogram should not delay biopsy of a clinically suspicious abnormality. Electronically Signed: Chu Juárez MD at 15:38 EDT ,
--- NOTE | 2022-06-28 08:54 | BD_ITS ---
STUDY: DUAL ENERGY X-RAY ABSORPTIOMETRY / DXA REASON FOR EXAM: Female, 81 years old. 733.00OsteoporosisBONE DENSITY REASON FOR EXAM TECHNIQUE: Bone Mineral Density (BMD) measurements of lumbar spine and bilateral hips were obtained. COMPARISON: Comparison is made with prior study dated 05/10/2018. FINDINGS: Lumbar Spine (L1-L4): g/cm2 (0.958) / T-score (-0.7) / Z-score (1.9) Findings are suggestive of normal bone density with a low fracture risk. Left Femur Total: g/cm2 (0.796) / T-score (-1.2) / Z-score (0.8) Left Femoral Neck: g/cm2 (0.672) / T-score (-1.6) / Z-score (0.7) Right Femur Total: g/cm2 (0.848) / T-score (-0.8) / Z-score (1.3) Right Femoral Neck: g/cm2 (0.726) / T-score (-1.1) / Z-score (1.2) The T-Scores on the most recent prior examination were: Lumbar Spine (L1-L4): There has been worsening of bone density since the previous examination. Left Femur Total: which represents a worsening of 2.7%. Right Femur Total: which represents a worsening of 2.4%. BD/Dexa Bone Density Study IMPRESSION: The patient is considered osteopenic as outlined below according to World Srinivas[employer] Organization (WHO) criteria with a moderate fracture risk. There has been worsening of bone density since the previous examination. Reference Information: The T-score is the number of standard deviations above or below the standard which is normal for young adults at their peak bone mineral density. The World Health Organization (WHO) interprets the T-scores as follows: Above -1 Normal bone density Between -1 and -2.5 Osteopenia Equal to / or below -2.5 Osteoporosis As a practical clinical guideline, osteopenia may be graded as follows: Mild -1 through -1.5 Moderate -1.6 through -2.0 Severe -2.1 through -2.4 The Z-score is the number of standard deviations above or below age-matched controls. A Z-score of less than -1.5 would be considered abnormal. References: 1. NIH Osteoporosis and Related Bone Diseases www osteo.org 2. International Society for Clinical Densitometry www iscd.org 3. National Osteoporosis Foundation www nof.org Electronically Signed: Aren Meadows MD at 15:11 EDT ,
== END | disposition home or self-care (01) ==
LOC: OPBI 08:49
PROVIDERS: PCP Family Medicine; Visit Provider Family Medicine
DX: Z12.31 Encounter for screening mammogram for malignant neoplasm of breast (principal); N95.9 Unspecified menopausal and perimenopausal disorder
CPT/HCPCS: 77063; 77067; 77080

== ENCOUNTER 2022-12-08 18:53 | Inpatient (IN) | payer MEDICARE, SELFPAY ==
[2022-12-08] VITALS (8 sets, daily range): BP systolic 126–173; BP diastolic 74–84; PULSE 72–99; RESP 12–24; TEMP 36.3–37.2; O2SAT 95–98; BMI 23.8; BMI 23.5
--- NOTE | 2022-12-08 19:29 | EKG12_ITS ---
Test Reason : CP Blood Pressure : / mmHG Vent. Rate : 094 BPM Atrial Rate : 094 BPM P-R Int : 172 ms QRS Dur : 116 ms QT Int : 384 ms P-R-T Axes : 078 -68 066 degrees QTc Int : 480 ms Normal sinus rhythm Left axis deviation Left ventricular hypertrophy with QRS widening Nonspecific ST abnormality Abnormal ECG Confirmed by LUZ DRIVER, AUSTIN ([id number]), news assignment editor CHARO VALDEZ ([id number]) on 12/13/2022 9:23:04 AM Referred By: JUWAN Confirmed By:AUSTIN ESCOBAR MD
--- NOTE | 2022-12-08 19:30 | ED.VIS.CHEST ---
HPI History of Present Illness Chief Complaint: Chest Pain Informant: patient Onset/Context/Timing Onset: Hours (1.5) Activity at onset: sudden, onset and activity on onset (Rest, sitting in a chair) Timing: Continuous and Waxes and wanes Quality: Positive for Aching and Pain Location: Substernal (Radiating to both upper arms) Current Severity: Mild Maximum Severity: Moderate Worsened By: Nothing; Not Worsened By Breathing Relieved By: Nothing Associated Symptoms: Positive for Dyspnea; Negative for Nausea, Vomiting, Diaphoresis, Cough, Fever, Lightheadedness or Palpitations Narrative Narrative: Patient without any history of cardiopulmonary disease presenting with chest discomfort that started at rest tonight while sitting in her recliner, radiating to both upper arms. A little shortness of breath with it, no palpitations, lightheadedness, diaphoresis, nausea, vomiting. Never had this before. No recent leg pain or swelling, history of DVT or PE, she takes daily aspirin. CVD Risk Factors: Positive for Hypertension and Hypercholesterolemia; Negative for Diabetes, Family History 1' </=55 or Smoking [facility] Medical History HLD (hyperlipidemia) HTN (hypertension) Sensorineural hearing loss Home Medications aspirin 81 mg chewable tablet 81 mg PO [facility] heart health 02/15/14 [History Last Taken 11/29/17] calcium citrate 250 mg calcium-vitamin D3 5 mcg (200 unit) tablet 1 ea PO BID supplement 02/15/14 [History Last Taken Unknown] evening primrose oil-linoleic acid-gamolenic acid 1,000 mg capsule ([place] Oil) 1,000 mg PO BID supplement 02/15/14 [History Last Taken 11/29/17] flaxseed oil 1,300 mg-omega 3,6,9 845 mg-117 mg-117 mg capsule 1 ea PO BID supplement 02/15/14 [History Last Taken 11/29/17] glucosamine sulfate 2KCl 500 mg capsule (Glucosamine Relief) 1,000 mg PO BID supplement 02/15/14 [History Last Taken 11/29/17] multivitamin with folic acid 400 mcg tablet (Thera) 1 tab PO DAILY supplement 02/15/14 [History Last Taken 11/29/17] vitamin E (dl, acetate) 180 mg (400 unit) capsule 400 units PO BID supplement 02/15/14 [History Last Taken 11/29/17] cyanocobalamin (vitamin B-12) 1,000 mcg capsule 1,000 mcg PO DAILY supplement 11/30/17 [History Last Taken 11/29/17] hydrochlorothiazide 25 mg tablet 12.5 mg PO DAILY ##30 12/03/17 [Rx Last Taken Unknown] amlodipine 5 mg tablet 10 mg PO DAILY 12/08/22 [History Last Taken Unknown] biotin 5,000 mcg disintegrating tablet 10,000 mcg PO DAILY 12/08/22 [History Last Taken Unknown] losartan 100 mg tablet 100 mg PO QHS 12/08/22 [History Last Taken Unknown] prednisone 20 mg tablet 20 mg PO DAILY 12/08/22 [History Last Taken Unknown] Allergy/AdvReac Type Severity Reaction Status Date / Time Penicillins Allergy Unknown Verified 08/09/21 07:09 Surgical History (Updated 12/08/22 @ 18:58 by Esha Tobar) H/O: hysterectomy Social History Smoking Status: Never smoker ROS ROS ED Constitutional Constitutional ED: Denies chills or fever(s) Eyes Eyes: Denies change in vision or diplopia ENT ENT ED: Denies rhinorrhea or sore throat Cardiovascular Cardiovascular: Reports chest pain; Denies leg edema or palpitations Respiratory/Chest Respiratory/Chest: Reports dyspnea; Denies cough Gastrointestinal Gastrointestinal: Denies abdominal pain, diarrhea, nausea or vomiting Genitourinary Genitourinary ED: Denies dysuria or hematuria Musculoskeletal Musculoskeletal: Denies back pain or neck pain Integumentary Denies abscess or rash Neurologic Neurologic: Denies headache(s), paresthesias or weakness Psychiatric Psychiatric: Denies anxiety or suicidal thoughts EXAM Physical Exam Const Vital Signs: 12/08/22 18:53 12/08/22 18:58 12/08/22 19:04 Temperature 97.4 F L Temperature Source Temporal Pulse Rate 99 94 Respiratory Rate 20 H 14 Respiratory Effort Normal Blood Pressure 173/84 H 153/74 H Blood Pressure Mean 113 100 Pulse Ox 98 97 Oxygen Delivery Method Room Air Room Air 12/08/22 19:42 12/08/22 20:17 12/08/22 21:05 Temperature Temperature Source Pulse Rate 81 72 Respiratory Rate 17 24 H Respiratory Effort Blood Pressure 126/77 H Blood Pressure Mean 93 Pulse Ox 96 96 95 Oxygen Delivery Method Room Air Room Air Room Air Positive well nourished and well developed General Appearance ED: well developed and NAD HEENT Reports moist mucous membranes normocephalic and atraumatic Eyes PERRL and EOMs intact bilaterally Neck full ROM and supple Resp normal respiratory effort and clear to auscultation bilaterally Cardio regular rate, regular rhythm and no murmurs Peripheral Pulses: pulses 2+ throughout GI non-tender and non-distended Auscultation: normoactive bowel sounds Palpation: soft Back/Spine no CVA tenderness General Back: other FROM Extremity normal to inspection and no calf tenderness General Extremety ED: Negative for edema, pulses abnormal or tenderness General Extremity: Negative for edema or pulses abnormal Neuro oriented x3, CN's II-XII intact bilaterally and no sensory deficits noted Sensorium / Orientation: awake and alert Motor Exam: strength 5/5 throughout Skin no rashes or lesions noted and no wounds Heart Score History: Highly Suspicious ECG: Nonspecific Repolarization Age: >/= 65 years Risk Factors: 1 or 2 Risk Factors Troponin: >1 - <3 Normal Limit Score: 7 MDM MDM MDM Narrative Medical decision making narrative: Patient given aspirin, nitroglycerin ordered but not given because patient's symptoms resolved. On my reevaluation she states she is feeling well, she has some very minor discomfort that is residual in her right upper extremity. Her labs show us nonspecifically slightly elevated troponin, suspicious for acute coronary syndrome here, as her symptoms are as well. The rest of her labs are normal. Her two-view chest x-ray shows no acute mediastinal widening or acute infiltrate. Her blood pressure has normalized without treatment. We will place her on a heparin drip, and discussed with hospitalist for PCU admission. Lab Data Attestation: I reviewed the patient's lab results. Labs: Laboratory Results - last 24 hr 12/08/22 12/08/22 12/08/22 18:54 18:54 18:54 WBC 8.6 RBC 4.45 Hgb 14.2 Hct 41.4 MCV 93.0 MCH 31.9 MCHC 34.3 RDW Std Deviation 44.5 H RDW Coeff of Lyla 13.1 Plt Count 289 MPV 9.8 Immature Gran % (Auto) 0.200 Neut % (Auto) 75.8 H Lymph % (Auto) 20.6 [place] % (Auto) 2.8 Eos % (Auto) 0.3 Baso % (Auto) 0.3 Absolute Neuts (auto) 6.5 Absolute Lymphs (auto) 1.77 Nucleated RBC % 0 APTT 29.1 Sodium 141 Potassium 3.3 L Chloride 107 Carbon Dioxide 25.0 Anion Gap 9 BUN 20 H Creatinine 1.34 H Estim Creat Clear Calc 28.29 Est GFR (MDRD) Af Amer 49 L Est GFR (MDRD) Non-Af 40 L BUN/Creatinine Ratio 14.9 Glucose 190 H Calcium 8.6 Troponin I High Sens 158 H* 12/08/22 21:31 WBC RBC Hgb Hct MCV MCH MCHC RDW Std Deviation RDW Coeff of Lyla Plt Count MPV Immature Gran % (Auto) Neut % (Auto) Lymph % (Auto) [place] % (Auto) Eos % (Auto) Baso % (Auto) Absolute Neuts (auto) Absolute Lymphs (auto) Nucleated RBC % APTT Sodium Potassium Chloride Carbon Dioxide Anion Gap BUN Creatinine Estim Creat Clear Calc Est GFR (MDRD) Af Amer Est GFR (MDRD) Non-Af BUN/Creatinine Ratio Glucose Calcium Troponin I High Sens 218 H* Radiography Diagnostic Testing: Clinical Impression(s) from Imaging Studies Chest X-Ray 12/08/22 20:00 IMPRESSION: Degenerative changes, as described above. No demonstrated acute cardiopulmonary process. Electronically Signed: Tin Oneal MD at 20:23 EST Reading Location ID and State: [address] [place] [address] , Service support , Rhythm Strip Rhythm Strip: Sinus Rhythm Rate: 90 Ectopy: None EKG Initial EKG: Attestation: I personally reviewed and interpreted this EKG as follows: Interpretation: Sinus Rhythm, No Acute Injury Pattern, LAFB and Non-Specific ST Changes (laterally biphasic Ts) Prior EKG tracings: available for review Prior: Changed (LAFB is old, but lateral subtle T wave abn are new) Follow-up EKG: Attestation: I personally reviewed and interpreted this EKG as follows: Interpretation: Sinus Rhythm and No Acute Injury Pattern Comments: Resolution of previous T wave abnormalities laterally. PVC. 3rd due to chest pain recurrence: Attestation: I personally reviewed and interpreted this EKG as follows: Interpretation: Sinus Rhythm, No Acute Injury Pattern and Non-Specific ST Changes (Recurrent nonspecific T wave abnormalities laterally similar to initial EKG no STEMI) Treatment and Re-Evaluation Narrative: After the patient was pain-free we did a repeat EKG showed resolution of the lateral subtle T wave changes, then shortly after that was performed the patient had recurrence of her chest pressure so a third EKG was obtained. See above, it did show similar ischemic abnormalities that were more like repolarization abnormality that the first EKG showed, but no STEMI. Nurses brought nitroglycerin to the patient, but the pressure in her chest resolved on its own prior to getting this so instead of sublingual nitroglycerin, 0.5 inch paste was placed on her chest and she looks well clinically. Discharge Plan Dx/Rx/DC Orders Clinical Impression: Unstable angina Disposition Disposition: Acute Care Hospital [facility]
[2022-12-08 19:41] LABS: Absolute Lymphocyte Count 1.77 X10^3/uL (0.83-4.51); Absolute Neutrophil Count 6.5 X10^3/uL (2.0-7.7); Basophil# 0.03 X10^3/uL; Basophil% 0.3 % (0-1); Eosinophil# 0.03 X10^3/uL; Eosinophils% 0.3 % (0-5); Hematocrit 41.4 % (37-47); Hemoglobin 14.2 g/dL (12.0-15.0); Lymphocyte # 1.77 X10^3/ul (0.83-4.51); Lymphocyte % 20.6 % (19-41); Mean Corp Hgb Conc 34.3 g/dL (32-36); Mean Corpuscular Hgb 31.9 pg (27.0-32.0); Mean Platelet Vol. 9.8 fl (6.2-12.0); Monocyte# 0.24 X10^3/uL; Monocyte% 2.8 % (0-10); NRBC Flagged by Analyzer 0 % (0-5); Neutrophil % 75.8 % (47-70); Platelet Count 289 K/mm3 (150-450); RBC Distribution Width CV 13.1 % (11.6-14.6); RBC Distribution Width SD 44.5 fl (35.1-43.9); Red Blood Count 4.45 M/mm3 (4.2-5.4); White Blood Count 8.6 K/mm3 (4.4-11.0)
[2022-12-08] MEDS: 0.9% Normal Saline 1,000 ML 150 ML IV (19:41)
[2022-12-08] MEDS: Aspirin 81 MG TAB.CHEW 162 MG PO (19:42)
[2022-12-08 19:51] LABS: Partial Thromboplast Time 29.1 Seconds (24.1-36.2)
--- NOTE | 2022-12-08 20:00 | RAD_ITS ---
STUDY: X-RAY CHEST REASON FOR EXAM: Female, 82 years old. Chest pain TECHNIQUE: PA and lateral views of the chest. COMPARISON: October 01, 2019 FINDINGS: There are monitoring devices. There is hyperinflation of the lungs consistent with chronic obstructive lung disease (COPD). There is no demonstrated pleural abnormality. Normal size heart. Normal mediastinum and laura. Normal visualized pulmonary arteries. Normal visualized aortic arch and descending thoracic aorta. There are diffuse degenerative changes of the visualized thoracic spine. Normal visualized ribs, clavicles, and shoulders. There is no demonstrated abnormality of the visualized soft tissue structures of the upper abdomen. RAD/Chest PA and Lateral IMPRESSION: Degenerative changes, as described above. No demonstrated acute cardiopulmonary process. Electronically Signed: Tin Oneal MD at 20:23 EST ,
[2022-12-08 20:23] LABS: Anion Gap 9 (5-15); BUN 20 mg/dL (7-18); BUN/Creat Ratio 14.9 RATIO (10-20); Calcium,Total 8.6 mg/dL (8.5-10.1); Chloride 107 mmol/L (98-107); Creatinine, Serum 1.34 mg/dL (0.55-1.02); EST Glomerular Filtration Rate 40 mL/min (>60); Est Glom Filt Rate - Afr Amer 49 mL/min (>60); Estimated Creatinine Clearance 28.29 ml/min; Glucose 190 mg/dL (74-106); Potassium 3.3 mmol/L (3.5-5.1); Sodium Level 141 mmol/L (136-145); Troponin-I HS (w/2H Reflex) 158 pg/mL (3.0-54.0)
--- NOTE | 2022-12-08 21:24 | HP.PCM.HOS_ITS ---
HPI - General General Date of Admission: 12/08/22 Date of Service: 12/08/22 Chief Complaint: chest pain HPI Narrative BOBBY LOVE, is a 82 F with a PMH as outlined who presents via the ED on 12/08/2022 with a complaint of chest pain. It started on the night of admission whilst she was sitting in her recliner, and radiated to both upper arms. It had no aggravating or relieving factors. She also complained of shortness of breath but denied any lightheadedness, palpitations, nausea, vomiting or diarrhea. Review of systems was otherwise negative. She doesnt have any history of heart disease. Vitals were Temp of 97.4F, Bp of 126/77 nad RR of 24. SHe was saturating at 95% on room air. CBC was unrmarkable, BMP showed potassiuim of 3.3 with Cr of 1.34. Initial troponin was 158. CXR showed no acute cardiopulmonary process. EKG showed no acute ST changes and showed normal sinus rhythm with left anterior fascicular block and nonspecific ST changes in lateral leads. She is being admitted to be managed for nonstemi. She was given aspirin and started on heparin drip in the ED. [facility] Medical History HLD (hyperlipidemia) HTN (hypertension) Sensorineural hearing loss Home Medications aspirin 81 mg chewable tablet 81 mg PO QHS heart health 02/15/14 [History Last Taken 11/29/17] calcium citrate 250 mg calcium-vitamin D3 5 mcg (200 unit) tablet 1 ea PO BID supplement 02/15/14 [History Last Taken Unknown] evening primrose oil-linoleic acid-gamolenic acid 1,000 mg capsule ([place] Oil) 1,000 mg PO BID supplement 02/15/14 [History Last Taken 11/29/17] flaxseed oil 1,300 mg-omega 3,6,9 845 mg-117 mg-117 mg capsule 1 ea PO BID supplement 02/15/14 [History Last Taken 11/29/17] glucosamine sulfate 2KCl 500 mg capsule (Glucosamine Relief) 1,000 mg PO BID supplement 02/15/14 [History Last Taken 11/29/17] multivitamin with folic acid 400 mcg tablet (Thera) 1 tab PO DAILY supplement 02/15/14 [History Last Taken 11/29/17] vitamin E (dl, acetate) 180 mg (400 unit) capsule 400 units PO BID supplement 02/15/14 [History Last Taken 11/29/17] cyanocobalamin (vitamin B-12) 1,000 mcg capsule 1,000 mcg PO DAILY supplement 11/30/17 [History Last Taken 11/29/17] hydrochlorothiazide 25 mg tablet 12.5 mg PO DAILY ##30 12/03/17 [Rx Last Taken Unknown] amlodipine 5 mg tablet 10 mg PO DAILY 12/08/22 [History Last Taken Unknown] biotin 5,000 mcg disintegrating tablet 10,000 mcg PO DAILY 12/08/22 [History Last Taken Unknown] losartan 100 mg tablet 100 mg PO QHS 12/08/22 [History Last Taken Unknown] prednisone 20 mg tablet 20 mg PO DAILY 12/08/22 [History Last Taken Unknown] Allergy/AdvReac Type Severity Reaction Status Date / Time Penicillins Allergy Unknown Verified 08/09/21 07:09 Surgical History (Updated 12/08/22 @ 18:58 by Esha Tobar) H/O: hysterectomy Social History Smoking Status: Never smoker ROS Review of Systems ROS Unobtainable: Denies due to encephalopathy Constitutional Constitutional: Denies anorexia, chills, fatigue, fever(s) or weakness Eyes Eyes: Denies blurry vision or change in vision ENT HEENT: Denies dysphagia, nasal congestion or sore throat Cardiovascular Cardiovascular: Reports chest pain; Denies dyspnea on exertion, edema, lightheadedness, orthopnea, palpitations, paroxysmal nocturnal dyspnea, rapid heart rate or syncope Respiratory/Chest Respiratory/Chest: Reports shortness of breath at rest; Denies cough, dyspnea, productive cough or shortness of breath with exertion Gastrointestinal Gastrointestinal: Denies abdominal pain, constipation, diarrhea, dyspepsia, hematemesis, hematochezia, nausea or vomiting Genitourinary Genitourinary: Denies burning urination or dysuria Musculoskeletal Musculoskeletal: Denies arthralgias, back pain or joint pain Neurologic Neurologic: Denies confusion, dizziness, focal weakness, headache(s) or seizures Psychiatric Psychiatric: Denies anxiety Endocrine Endocrinology: Denies change in body appearance Hematologic/Lymphatic Hematologic/Lymphatic: Denies anemia Allergic/Immunologic Allergic/Immunologic: Reports rhinitis Vital Signs Vital Signs Vital Signs: 12/08/22 18:53 12/08/22 18:58 12/08/22 19:04 Temperature 97.4 F L Temperature Source Temporal Pulse Rate 99 94 Respiratory Rate 20 H 14 Respiratory Effort Normal Blood Pressure 173/84 H 153/74 H Blood Pressure Mean 113 100 Pulse Ox 98 97 Oxygen Delivery Method Room Air Room Air 12/08/22 19:42 12/08/22 20:17 12/08/22 21:05 Temperature Temperature Source Pulse Rate 81 72 Respiratory Rate 17 24 H Respiratory Effort Blood Pressure 126/77 H Blood Pressure Mean 93 Pulse Ox 96 96 95 Oxygen Delivery Method Room Air Room Air Room Air Weight Weight: 118 lb Body Mass Index (BMI) 23.8 Physical Exam Const alert, oriented x3 and no apparent distress General Appearance: cooperative HEENT normocephalic, head/scalp atraumatic, hearing grossly normal bilaterally and moist oral mucous membranes Mouth: oral and palatal mucosa normal Eyes PERRL, EOMs intact bilaterally and conjunctivae normal Resp normal respiratory effort, no retractions, no use of accessory muscles and clear to auscultation bilaterally Cardio regular rate, regular rhythm, S1 normal heart sound, S2 normal heart sound and no murmurs GI normal to inspection, nondistended, normoactive bowel sounds, soft to palpation and non-tender Extremity normal to inspection, full ROM and no clubbing, cyanosis or edema Neuro oriented x3, CN's II-XII intact bilaterally, moves all extremities and no focal motor deficits Sensorium / Orientation: awake, alert, oriented to person, oriented to place and oriented to time Motor Exam: strength 5/5 throughout Psych affect normal Results Lab / Micro Data Result Diagrams: 12/08/22 18:54 12/08/22 18:54 Labs: Laboratory Results - last 24 hr 12/08/22 18:54: WBC 8.6, RBC 4.45, Hgb 14.2, Hct 41.4, MCV 93.0, MCH 31.9, MCHC 34.3, RDW Std Deviation 44.5 H, RDW Coeff of Lyla 13.1, Plt Count 289, MPV 9.8, Immature Gran % (Auto) 0.200, Neut % (Auto) 75.8 H, Lymph % (Auto) 20.6, [place] % (Auto) 2.8, Eos % (Auto) 0.3, Baso % (Auto) 0.3, Absolute Neuts (auto) 6.5, Absolute Lymphs (auto) 1.77, Nucleated RBC % 0 12/08/22 18:54: APTT 29.1 12/08/22 18:54: Sodium 141, Potassium 3.3 L, Chloride 107, Carbon Dioxide 25.0, Anion Gap 9, BUN 20 H, Creatinine 1.34 H, Estim Creat Clear Calc 28.29, Est GFR (MDRD) Af Amer 49 L, Est GFR (MDRD) Non-Af 40 L, BUN/Creatinine Ratio 14.9, Glucose 190 H, Calcium 8.6, Troponin I High Sens 158 H* Rhythm Strip Rhythm Strip: Sinus Rhythm Rate: 90 Ectopy: None Radiology Impression Chest X-Ray 12/08/22 20:00 IMPRESSION: Degenerative changes, as described above. No demonstrated acute cardiopulmonary process. Electronically Signed: Tin Oneal MD at 20:23 EST , Assessment & Plan Assessment/Plan (1) Chest pain: (2) NSTEMI, initial episode of care: PLAN: Plan #Nstemi * admit to PCU. initial troponin is 158 * will start on PO aspirin 81mg daily and high intensity statin * placed on heparin in the ED: will switch to SQ lovenox * 2D echo ordered * cardiology consulted * cycle troponins. WIll keep NPO past midnight for likely cath tomorrow morning * EKG showed no acute ST changes * last stress test in February 2021 was normal, and 2D echo also from February 2021 showed EF of 65% with mild aortic stenosis. #Hypertension: on amlldipine and HCTZ as well as losartan DVT prophylaxis: already on therapeutic lovenox Code status: full code * Patient counseled extensively about different types of CODE STATUS including full code, DNR CCA and DNR CCA. Patient elects to be (). Total blgd-ys-eino time () minutes. Charges/Coding Visit Charges Inpatient E&M: 65192 Init Hosp L3 Procedures Hospitalists Procedures: 17005 Advncd Care Plan 30 Min
--- NOTE | 2022-12-08 21:24 | EKG12_ITS ---
Test Reason : DYSRHYTHMIA Blood Pressure : / mmHG Vent. Rate : 076 BPM Atrial Rate : 076 BPM P-R Int : 156 ms QRS Dur : 110 ms QT Int : 438 ms P-R-T Axes : 067 -70 025 degrees QTc Int : 492 ms Sinus rhythm with occasional Premature ventricular complexes Left anterior fascicular block Prolonged QT Abnormal ECG Confirmed by LUZ DRIVER, AUSTIN ([id number]), copy editor CHARO VALDEZ ([id number]) on 12/13/2022 9:25:31 AM Referred By: BB Confirmed By:AUSTIN ESCOBAR MD
[2022-12-08] MEDS: HEPARIN/D5w 25,000 UNITS 25,000 UNITS/250 ML IV.SOLN. 7 UNITS CONT INF (21:28)
[2022-12-08] MEDS: Heparin Injection (Vial) 5,000 UNIT/ML VIAL 3500 UNIT IV (21:29)
[2022-12-08 21:38] LABS: Reflex Troponin-HS? (from REC) Y
[2022-12-08 22:24] LABS: Troponin-I HS 218 pg/mL (3.0-54.0)
[2022-12-08] MEDS: Nitroglycerin Oint 1 INCH PACKET 0.5 INCH TD (22:31)
--- NOTE | 2022-12-08 23:40 | EKG12_ITS ---
Test Reason : CP ADMIT Blood Pressure : / mmHG Vent. Rate : 078 BPM Atrial Rate : 078 BPM P-R Int : 150 ms QRS Dur : 110 ms QT Int : 428 ms P-R-T Axes : 081 -71 041 degrees QTc Int : 487 ms Normal sinus rhythm Left axis deviation Poor R wave progression Minimal voltage criteria for LVH, may be normal variant ( [place] product ) Abnormal ECG Confirmed by CHANTELLE DRIVER, ERMA ([id number]), make up editor CHARO VALDEZ ([id number]) on 12/14/2022 10:00:20 AM Referred By: Confirmed By:ERMA LOCKHART MD
--- NOTE | 2022-12-08 23:46 | NURSING ---
Pt would like daughter (Tammi) to be called first for updates and for any reasons. is [facility] per pt
[2022-12-09] VITALS (11 sets, daily range): BP systolic 116–143; BP diastolic 63–77; PULSE 66–81; RESP 16–18; TEMP 36.5–36.6; O2SAT 95–100
[2022-12-09] MEDS: Losartan Potassium 100 MG Tablet PO ×2 (00:36→21:44)
[2022-12-09] MEDS: Enoxaparin 60 MG/0.6 ML Syringe 50 MG SC ×2 (00:36→21:45)
[2022-12-09] MEDS: Aspirin 81 MG TAB.CHEW PO ×2 (00:36→21:44)
[2022-12-09] MEDS: 0.9% Saline Lock 10 ML Syringe IV (00:36)
[2022-12-09] MEDS: 0.9% Normal Saline 1,000 ML 150 ML IV ×3 (00:37→14:31)
[2022-12-09 01:52] LABS: Troponin-I HS 242 pg/mL (3.0-54.0)
[2022-12-09] MEDS: Potassium Chloride Oral Tablet 20 MEQ 40 MEQ PO (02:54)
--- NOTE | 2022-12-09 05:55 | ECHOD_ITS ---
Version 2 Reason For Study: Chest Pain Procedure This was a 2D Doppler, Color Flow transthoracic echocardiogram. Exam performed portable in patient room. Left Ventricle Normal LV size. Left ventricular systolic function is normal. The estimated ejection fraction is 60 %. Stage 1 diastolic dysfunction. No regional wall motion abnormalities noted. Right Ventricle Normal RV size. Normal systolic function. Atria Normal left atrium. Normal right atrium. Mitral Valve There is mild to moderate mitral annular calcification. Tricuspid Valve Normal tricuspid valve. Aortic Valve Trisinus/trileaflet aortic valve. Mild focal aortic valve calcification. Pulmonic Valve Normal pulmonic valve. Great Vessels Normal aortic root. The pulmonary artery is normal size. Normal inferior vena cava. Pericardium/Pleural No pericardial effusion. MMode/2D Measurements & Calculations LVIDd: 4.1 cm IVSd: 0.93 cm LVOT diam: 2.1 cm LVIDs: 2.8 cm LVPWd: 0.84 cm LVOT area: 3.3 cm2 RVDd: 3.3 cm FS: 33.3 % Ao root diam: 3.4 cm LAV(MOD-bp): 42.4 ml LVAd ap4: 21.6 cm2 LA dimension: 3.1 cm LAV(MOD-bp) Indexed: 29.0 ml/m2 LVLd ap4: 6.7 cm LAV(MOD-sp2): 50.0 ml EDV(MOD-sp4): 55.7 ml LAV(MOD-sp4): 31.3 ml EDV(sp4-el): 59.3 ml LVAs ap4: 10.7 cm2 LVLs ap4: 5.0 cm ESV(MOD-sp4): 19.1 ml ESV(sp4-el): 19.5 ml EF(MOD-sp4): 65.7 % EF(sp4-el): 67.1 % SV(MOD-sp4): 36.6 ml SV(sp4-el): 39.8 ml LA A4 area: 13.0 cm2 RA A4 area: 11.6 cm2 Time Measurements MV dec time: 0.27 sec Doppler Measurements & Calculations MV E max sorin: 89.3 cm/sec Lat Peak E' Sorin: 7.3 cm/sec Med Peak E' Sorin: 7.9 cm/sec MV A max sorin: 124.3 cm/sec E/E' lat: 12.2 E/E' med: 11.4 MV E/A: 0.72 MV V2 max: 158.1 cm/sec MV P1/2t max sorin: 110.2 cm/sec Ao V2 max: 171.4 cm/sec MV max P.0 mmHg MV P1/2t: 85.6 msec Ao max P.8 mmHg MV V2 mean: 73.3 cm/sec Ao V2 mean: 108.6 cm/sec MV mean P.6 mmHg MV dec slope: 376.9 cm/sec2 Ao mean P.5 mmHg MV V2 VTI: 36.0 cm MVA(P1/2t): 2.6 cm2 Ao V2 VTI: 34.8 cm AV (velocity ratio): 0.63 MVA(VTI): 2.0 cm2 RANDY(I,D): 2.1 cm2 RANDY(V,D): 2.0 cm2 LV V1 max: 103.9 cm/sec SV(LVOT): 72.9 ml PA V2 max: 94.1 cm/sec LV V1 max P.3 mmHg LV V1 mean P.9 mmHg LV V1 mean: 62.4 cm/sec LV V1 VTI: 21.9 cm ECHO/Echo Complete Interpretation Summary Normal LV size. Left ventricular systolic function is normal. The estimated ejection fraction is 60 %. Mild focal aortic valve calcification. Stage 1 diastolic dysfunction. Ordering Physician: Susanna Cabrera Referring Physician: Kyara Odonnell M.D. Performed By: Huang Tsang RCS
[2022-12-09 06:33] LABS: Absolute Neutrophil Count 5.3 X10^3/uL (2.0-7.7); Basophil# 0.01 X10^3/uL; Basophil% 0.1 % (0-1); Hematocrit 36.3 % (37-47); Hemoglobin 11.8 g/dL (12.0-15.0); Lymphocyte % 21.2 % (19-41); Mean Corp Hgb Conc 32.5 g/dL (32-36); Mean Corpuscular Hgb 30.6 pg (27.0-32.0); Mean Platelet Vol. 9.8 fl (6.2-12.0); Monocyte# 0.64 X10^3/uL; Monocyte% 8.5 % (0-10); NRBC Flagged by Analyzer 0 % (0-5); Neutrophil # 5.27 X10^3/uL (2.7-7.7); Neutrophil % 69.8 % (47-70); Platelet Count 235 K/mm3 (150-450); RBC Distribution Width CV 13.1 % (11.6-14.6); RBC Distribution Width SD 44.6 fl (35.1-43.9); Red Blood Count 3.86 M/mm3 (4.2-5.4); White Blood Count 7.6 K/mm3 (4.4-11.0)
[2022-12-09 07:00] LABS: Anion Gap 7 (5-15); BUN 15 mg/dL (7-18); BUN/Creat Ratio 17.5 RATIO (10-20); Calcium,Total 8.1 mg/dL (8.5-10.1); Chloride 113 mmol/L (98-107); Creatinine, Serum 0.86 mg/dL (0.55-1.02); EST Glomerular Filtration Rate 68 mL/min (>60); Est Glom Filt Rate - Afr Amer 82 mL/min (>60); Estimated Creatinine Clearance 43.49 ml/min; Glucose 105 mg/dL (74-106); Potassium 4.3 mmol/L (3.5-5.1); Sodium Level 143 mmol/L (136-145)
[2022-12-09] MEDS: amLODIPine 10 MG Tablet PO (07:51)
--- NOTE | 2022-12-09 08:18 | PCM.CONS.C ---
Assessment & Plan Assessment/Plan (1) NSTEMI, initial episode of care: PLAN: She presents with bilateral arm discomfort and is noted to have mildly abnormal cardiac enzymes. The plan will be for her to undergo a left heart catheterization. The risk benefits alternatives have been explained to her she understands and agrees to proceed. Depending on the findings further recommendations will be made. Catheterization demonstrated the following: Normal left main coronary artery. Left anterior descending artery which is calcified with moderate 60 to 70% stenosis. Dominant left circumflex artery with a prominent first obtuse marginal branch with to 90% stenosis in the mid circumflex artery with an 80% stenotic lesion. Nondominant right coronary artery. Preserved left ventricular systolic function. Based on the above angiographic findings I would recommend PCI to the left circumflex artery. Above discussed with interventionalist (2) HTN (hypertension): PLAN: Her blood pressure appears to be mildly elevated on presentation. I would recommend we optimize her medical therapy. Depending on the findings further recommendations will be made. (3) HLD (hyperlipidemia): PLAN: She does have a history of hyperlipidemia. We will continue with aggressive risk factor modification. HPI Consult Data Date of Consult: 12/09/22 HPI Narrative HPI Narrative: BOBBY LOVE, is a 82 F who presents to the emergency room with complaints of chest discomfort as well as bilateral arm discomfort. She does have a history of known hypertension on medical therapy. She does not have previously known coronary artery disease but has had an echocardiogram last year which demonstrated preserved ejection fraction with aortic sclerosis and mild stenosis and mitral calcification. She also had a stress test which did not demonstrate any evidence of ischemia. She presented to the emergency room and the EKG that was done demonstrated normal sinus rhythm with a rate of 78 bpm and no acute changes. Cardiac enzymes however were noted to be mildly abnormal. Cardiology was called for further evaluation and management. At this particular time patient appears to be free of chest discomfort. [facility] Medical History (Updated 12/09/22 @ 08:[address] Mustapha Clement MD) HLD (hyperlipidemia) HTN (hypertension) Sensorineural hearing loss Home Medications aspirin 81 mg chewable tablet 81 mg PO [facility] [place] [facility] 02/15/14 [History Last Taken 11/29/17] calcium citrate 250 mg calcium-vitamin D3 5 mcg (200 unit) tablet 1 ea PO BID supplement 02/15/14 [History Last Taken Unknown] glucosamine sulfate 2KCl 500 mg capsule (Glucosamine Relief) 1,000 mg PO BID supplement 02/15/14 [History Last Taken 11/29/17] multivitamin with folic acid 400 mcg tablet (Thera) 1 tab PO DAILY supplement 02/15/14 [History Last Taken 11/29/17] vitamin E (dl, acetate) 180 mg (400 unit) capsule 400 units PO BID supplement 02/15/14 [History Last Taken 11/29/17] cyanocobalamin (vitamin B-12) 1,000 mcg capsule 1,000 mcg PO DAILY supplement 11/30/17 [History Last Taken 11/29/17] hydrochlorothiazide 25 mg tablet 12.5 mg PO DAILY ##30 12/03/17 [Rx Last Taken Unknown] amlodipine 5 mg tablet 10 mg PO DAILY 12/08/22 [History Last Taken Unknown] losartan 100 mg tablet 100 mg PO QHS 12/08/22 [History Last Taken Unknown] prednisone 20 mg tablet 20 mg PO DAILY 12/08/22 [History Last Taken Unknown] Allergy/AdvReac Type Severity Reaction Status Date / Time [id number] Reductase Allergy Severe Pain in Verified 12/08/22 23:51 Inhibitor joints Penicillins Allergy Unknown Verified 08/09/21 07:09 Surgical History (Updated 12/08/22 @ 18:58 by Esha Tobar) H/O: hysterectomy Social History Smoking Status: Never smoker ROS Review of Systems ROS Unobtainable: Denies due to encephalopathy Constitutional Constitutional: Denies anorexia, chills, fatigue, fever(s) or weakness Eyes Eyes: Denies blurry vision or change in vision ENT HEENT: Denies dysphagia, nasal congestion or sore throat Cardiovascular Cardiovascular: Reports chest pain; Denies dyspnea on exertion, edema, lightheadedness, orthopnea, palpitations, paroxysmal nocturnal dyspnea, rapid heart rate or syncope Respiratory/Chest Respiratory/Chest: Reports shortness of breath at rest; Denies cough, dyspnea, productive cough or shortness of breath with exertion Gastrointestinal Gastrointestinal: Denies abdominal pain, constipation, diarrhea, dyspepsia, hematemesis, hematochezia, nausea or vomiting Genitourinary Genitourinary: Denies burning urination or dysuria Musculoskeletal Musculoskeletal: Denies arthralgias, back pain or joint pain Neurologic Neurologic: Denies confusion, dizziness, focal weakness, headache(s) or seizures Psychiatric Psychiatric: Denies anxiety Endocrine Endocrinology: Denies change in body appearance Hematologic/Lymphatic Hematologic/Lymphatic: Denies anemia Allergic/Immunologic Allergic/Immunologic: Reports rhinitis Physical Exam Const alert, oriented x3 and no apparent distress General Appearance: cooperative HEENT normocephalic, head/scalp atraumatic, hearing grossly normal bilaterally and moist oral mucous membranes Mouth: oral and palatal mucosa normal Eyes PERRL, EOMs intact bilaterally and conjunctivae normal Resp normal respiratory effort, no retractions, no use of accessory muscles and clear to auscultation bilaterally Cardio regular rate, regular rhythm, S1 normal heart sound and S2 normal heart sound Heart Sounds: murmur systolic II/ soft early GI normal to inspection, nondistended, normoactive bowel sounds, soft to palpation and non-tender Extremity normal to inspection, full ROM and no clubbing, cyanosis or edema Neuro oriented x3, CN's II-XII intact bilaterally, moves all extremities and no focal motor deficits Sensorium / Orientation: awake, alert, oriented to person, oriented to place and oriented to time Motor Exam: strength 5/5 throughout Psych affect normal Risk Stratification Risk Stratification Applicable: Yes Age >/= 65: Yes >/= 3 CAD Risk Factors (HTN, HLD, DM, family hx of CAD, or current smoker): No Aspirin Use in the Past 7 Days: Yes Severe Angina (>/= episodes in 24 hours): No EKG ST Changes >/= 0.5mm: No Positive Cardiac Marker: Yes CONNOR Risk Stratification Score: 3 CONNOR % Risk: 13% Risk Objective Data Vital Signs: Vital Signs Temp Pulse Resp BP Pulse Ox O2 Del Method 97.9 F 71 18 123/75 H 95 Room Air 12/09/22 07:52 12/09/22 07:52 12/09/22 07:52 12/09/22 07:52 12/09/22 07:52 12/09/22 07:52 Oxygen Delivery Method Room Air Weight: 116 lb 6.465 oz Body Mass Index (BMI) 23.5 Intake & Output: Intake and Output for Last 24 Hours 12/07/22 12/08/22 12/09/22 23:59 23:59 23:59 Intake Total 13.65 / 13.65 1617.5 / 1617.5 Balance 13.65 / 1617.5 / 1617.5 Lab / Micro Data Result Diagrams: 12/09/22 05:53 12/09/22 05:53 Labs: Laboratory Results - last 24 hr 12/08/22 18:54: WBC 8.6, RBC 4.45, Hgb 14.2, Hct 41.4, MCV 93.0, MCH 31.9, MCHC 34.3, RDW Std Deviation 44.5 H, RDW Coeff of Lyla 13.1, Plt Count 289, MPV 9.8, Immature Gran % (Auto) 0.200, Neut % (Auto) 75.8 H, Lymph % (Auto) 20.6, [place] % (Auto) 2.8, Eos % (Auto) 0.3, Baso % (Auto) 0.3, Absolute Neuts (auto) 6.5, Absolute Lymphs (auto) 1.77, Nucleated RBC % 0 12/08/22 18:54: APTT 29.1 12/08/22 18:54: Sodium 141, Potassium 3.3 L, Chloride 107, Carbon Dioxide 25.0, Anion Gap 9, BUN 20 H, Creatinine 1.34 H, Estim Creat Clear Calc 28.29, Est GFR (MDRD) Af Amer 49 L, Est GFR (MDRD) Non-Af 40 L, BUN/Creatinine Ratio 14.9, Glucose 190 H, Calcium 8.6, Troponin I High Sens 158 H* 12/08/22 21:31: Troponin I High Sens 218 H* 12/09/22 00:55: Troponin I High Sens 242 H* 12/09/22 05:53: WBC 7.6, RBC 3.86 L, Hgb 11.8 L, Hct 36.3 L, MCV 94.0, MCH 30.6, MCHC 32.5 D, RDW Std Deviation 44.6 H, RDW Coeff of Lyla 13.1, Plt Count 235, MPV 9.8, Immature Gran % (Auto) 0.400, Neut % (Auto) 69.8, Lymph % (Auto) 21.2, [place] % (Auto) 8.5, Eos % (Auto) 0.0, Baso % (Auto) 0.1, Absolute Neuts (auto) 5.3, Absolute Lymphs (auto) 1.60, Nucleated RBC % 0 12/09/22 05:53: Sodium 143, Potassium 4.3, Chloride 113 H, Carbon Dioxide 23.0, Anion Gap 7, BUN 15, Creatinine 0.86, Estim Creat Clear Calc 43.49, Est GFR (MDRD) Af Amer 82, Est GFR (MDRD) Non-Af 68, BUN/Creatinine Ratio 17.5, Glucose 105, Calcium 8.1 L Rhythm Strip Rhythm Strip: Sinus Rhythm Rate: 90 Ectopy: None Cardiology Labs/Tests 12/08/22 18:54: WBC 8.6, RBC 4.45, Hgb 14.2, Hct 41.4, MCV 93.0, MCH 31.9, MCHC 34.3, Plt Count 289, MPV 9.8, Immature Gran % (Auto) 0.200, Neut % (Auto) 75.8 H, Lymph % (Auto) 20.6, [place] % (Auto) 2.8, Eos % (Auto) 0.3, Baso % (Auto) 0.3, Absolute Neuts (auto) 6.5, Nucleated RBC % 0 12/08/22 18:54: APTT 29.1 12/08/22 18:54: Sodium 141, Potassium 3.3 L, Chloride 107, Carbon Dioxide 25.0, Anion Gap 9, BUN 20 H, Creatinine 1.34 H, Est GFR (MDRD) Af Amer 49 L, Est GFR (MDRD) Non-Af 40 L, BUN/Creatinine Ratio 14.9, Glucose 190 H, Calcium 8.6 12/09/22 05:53: WBC 7.6, RBC 3.86 L, Hgb 11.8 L, Hct 36.3 L, MCV 94.0, MCH 30.6, MCHC 32.5 D, Plt Count 235, MPV 9.8, Immature Gran % (Auto) 0.400, Neut % (Auto) 69.8, Lymph % (Auto) 21.2, [place] % (Auto) 8.5, Eos % (Auto) 0.0, Baso % (Auto) 0.1, Absolute Neuts (auto) 5.3, Nucleated RBC % 0 12/09/22 05:53: Sodium 143, Potassium 4.3, Chloride 113 H, Carbon Dioxide 23.0, Anion Gap 7, BUN 15, Creatinine 0.86, Est GFR (MDRD) Af Amer 82, Est GFR (MDRD) Non-Af 68, BUN/Creatinine Ratio 17.5, Glucose 105, Calcium 8.1 L Rhythm: EKG: ECHO: Stress Test: Cardiac Cath: PCI: CT Surgery: Holter monitor: EPS: PPM: CXR: Chest CT Scan: Radiography Diagnostic Testing: Radiology Impression Chest X-Ray 12/08/22 20:00 IMPRESSION: Degenerative changes, as described above. No demonstrated acute cardiopulmonary process. Electronically Signed: Tin Oneal MD at 20:23 EST ,
--- NOTE | 2022-12-09 09:01 | NURSING ---
This RN called and gave report to MAXINE Navarro at pharmacy laboratory technician.
--- NOTE | 2022-12-09 10:28 | CL.D_ITS ---
Patient Name: BOBBY LOVE Study Date: 12/09/2022 Performing: Mustapha Clement MD Ht: 59 inches 149.86 cm : 1940 Wt: 116.4 lbs 52.8 kg Age: 82 Gender: female BSA: 1.47 PROCEDURE(S) PERFORMED DC01-(75515)LHC/COR/LV IC12-([id number])FARRUKH W/WO PTCA, SINGLE CORONARY ARTERY CLINICAL PROFILE AND INDICATIONS Indications: Suspected CAD Heart Failure: None Stress/Imaging Stress/Image Study Performed: No Angina Classification Anginal Classification w/in 2 Weeks: CCS I CAD Presentations: Non-STEMI. 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 Moderate disease noted in the left anterior descending artery. RECOMMENDATIONS Referred for immediate PCI DESCRIPTION OF PROCEDURE The patient arrived to the procedure lab. The risks and benefits of the procedure as well as a full description of our services here and current unavailability of surgical backup were fully explained to the patient and/or their significant other prior to the catheterization. The Timeout was completed, verifying the correct patient and procedure. The patient's procedural site was prepped and draped in the usual fashion. Local anesthetic was given subcutaneously to right radial region with Lidocaine 2%. Using a modified Seldinger technique, arterial access was obtained via the right radial artery, a 6Fr sheath was inserted. Left Coronary Artery selective angiography was performed in multiple views using a 5 Fr. 4.0 Austin catheter. Right Coronary Artery selective angiography was then performed in multiple views using a 5 Fr. 4.0 Austin catheter. Left Ventriculography was performed in JENKINS projection using a 5 Fr. Pigtail catheter. LV to AO pullback pressures were then recorded. CORONARY ANGIOGRAPHY DOMINANCE: Left Dominant LEFT HEART ASSESSMENT Left Ventricular Ejection Fraction: by LV Gram 60 % Normal LV wall motion Normal Left Ventricular systolic function LEFT MAIN: Angiographically normal, Non-obstructive LEFT ANTERIOR DESCENDING ARTERY: Moderate calcification, Moderate stenosis noted in the midsegment of approximately 60 to 70% stenosis. CIRCUMFLEX ARTERY: There are 2 tiny first obtuse marginal branches noted and a larger obtuse marginal branch with to 90% stenotic lesions noted. The mid circumflex artery has a 90% stenotic lesion. The distal circumflex artery has no significant stenosis. RIGHT CORONARY ARTERY: No significant disease noted COMPLICATIONS PROCEDURE MEDICATIONS Fentanyl 50 mcg IV Versed 1 mg IV Fentanyl 25 mcg IV Versed 1 mg IV Versed 1 mg IV Oxygen: 2 L/min via nasal cannula Brilinta 180 mg PO @ 12/09/2022 10:20:27 Heparin given IA 12/09/2022 10:03:40 Heparin 4000 unit(s) IV 12/09/2022 10:25:49 Verapamil 2.5mg, Ntg 100mcgs, 3000 units of Heparin given IA 12/09/2022 10:03:40 SUMMARY OF HEMODYNAMIC DATA Time AIR REST ECG 09:43:08 AO 112/66 (86) SA 10:06:24 LV 130/13, 23 10:12:41 LV 127/13, 22 10:12:49 LV 129/12, 31 10:14:09 LV 121/12, 24 10:14:17 LVp 123/13, 23 10:14:23 AOp 134/70 (99) 10:14:30 Signed By Mustapha Clement MD On 12/09/2022 10:27:54 Mustapha Clement MD
--- NOTE | 2022-12-09 10:59 | PN.HOSP_ITS ---
Subjective Subjective Follow-up for non-STEMI. Patient went for cardiac cath. Objective Data Objective Data Vital Signs: Vital Signs Temp Pulse Resp BP Pulse Ox O2 Del Method 97.9 F 71 18 123/75 H 95 Room Air 12/09/22 07:52 12/09/22 07:52 12/09/22 07:52 12/09/22 07:52 12/09/22 08:48 12/09/22 08:48 Oxygen Delivery Method Room Air Weight: 116 lb 6.465 oz Body Mass Index (BMI) 23.5 Intake & Output: Intake and Output for Last 24 Hours 12/07/22 12/08/22 12/09/22 23:59 23:59 23:59 Intake Total Balance Lab / Micro Data Result Diagrams: 12/09/22 05:53 12/09/22 05:53 Labs: Laboratory Results - last 24 hr 12/08/22 18:54: WBC 8.6, RBC 4.45, Hgb 14.2, Hct 41.4, MCV 93.0, MCH 31.9, MCHC 34.3, RDW Std Deviation 44.5 H, RDW Coeff of Lyla 13.1, Plt Count 289, MPV 9.8, Immature Gran % (Auto) 0.200, Neut % (Auto) 75.8 H, Lymph % (Auto) 20.6, [place] % (Auto) 2.8, Eos % (Auto) 0.3, Baso % (Auto) 0.3, Absolute Neuts (auto) 6.5, Absolute Lymphs (auto) 1.77, Nucleated RBC % 0 12/08/22 18:54: APTT 29.1 12/08/22 18:54: Sodium 141, Potassium 3.3 L, Chloride 107, Carbon Dioxide 25.0, Anion Gap 9, BUN 20 H, Creatinine 1.34 H, Estim Creat Clear Calc 28.29, Est GFR (MDRD) Af Amer 49 L, Est GFR (MDRD) Non-Af 40 L, BUN/Creatinine Ratio 14.9, Glucose 190 H, Calcium 8.6, Troponin I High Sens 158 H* 12/08/22 21:31: Troponin I High Sens 218 H* 12/09/22 00:55: Troponin I High Sens 242 H* 12/09/22 05:53: WBC 7.6, RBC 3.86 L, Hgb 11.8 L, Hct 36.3 L, MCV 94.0, MCH 30.6, MCHC 32.5 D, RDW Std Deviation 44.6 H, RDW Coeff of Lyla 13.1, Plt Count 235, MPV 9.8, Immature Gran % (Auto) 0.400, Neut % (Auto) 69.8, Lymph % (Auto) 21.2, [place] % (Auto) 8.5, Eos % (Auto) 0.0, Baso % (Auto) 0.1, Absolute Neuts (auto) 5.3, Absolute Lymphs (auto) 1.60, Nucleated RBC % 0 12/09/22 05:53: Sodium 143, Potassium 4.3, Chloride 113 H, Carbon Dioxide 23.0, Anion Gap 7, BUN 15, Creatinine 0.86, Estim Creat Clear Calc 43.49, Est GFR (MDRD) Af Amer 82, Est GFR (MDRD) Non-Af 68, BUN/Creatinine Ratio 17.5, Glucose 105, Calcium 8.1 L Radiography Diagnostic Testing: Radiology Impression Chest X-Ray 12/08/22 20:00 IMPRESSION: Degenerative changes, as described above. No demonstrated acute cardiopulmonary process. Electronically Signed: Tin Oneal MD at 20:23 EST , Echocardiogram 12/09/22 05:55 Interpretation Summary Normal LV size. Left ventricular systolic function is normal. The estimated ejection fraction is 60 %. Mild focal aortic valve calcification. Ordering Physician: Susanna Cabrera Referring Physician: Kyara Odonnell M.D. Performed By: Huang Tsang RCS Rhythm Strip Rhythm Strip: Sinus Rhythm Rate: 90 Ectopy: None Physical Exam Narrative Seen and examined after cardiac cath. Physical exam General: Alert, Oriented x3, Cooperative HEENT: Atraumatic, PERRLA, EOMI, Normocephalic Oral: No Gingival or Mucosal Lesions/ Ulcerations Neck: Supple, No JVD, Negative Carotid Bruits Lungs: Air entry diminished in bilateral lung bases. No crepitation/rhonchi Cardiovascular: Regular rate, Regular Rhythm, Normal S1, Normal S2, No murmurs Abdomen: Bowel Sounds Present, Soft, Non Tender, Non-Distended : No renal angle tenderness. No suprapubic tenderness. Extremities: 1+ bilateral ankle pitting edema, Capillary Refill Less than 3 Seconds Skin: Mild bruise over along the right radial artery. Mild petechial rash. No hematoma Musculoskeletal: No Tenderness to Palpation of Joints or Extremities Neurological: Cranial nerves II-XII grossly intact, DTR 2+/4 and Symmetrical, Neuro grossly intact Psych/Mental Status: Normal Affect, Appropriate. Assessment & Plan Assessment/Plan (1) Chest pain: (2) NSTEMI, initial episode of care: PLAN: Plan 1. Non-STEMI * admit to PCU. initial troponin is 158 , Serial troponin shows high troponins 218 and 242. On aspirin and high intensity statin. Patient was on IV heparin drip before in the ER. Aeronautics Teacher was consulted. Twelve-lead EKG does not show acute changes. Last stress test in February 2021 was normal 2D echo also from February 2021 showed EF of 65% with mild aortic stenosis. * Cardiac cath showed large obtuse marginal branch 90% stenotic lesions. Mid circumflex 90 stent. Distal circumflex no significant stenosis * Echo showed EF 60% and systolic function normal. Stage I vaginal discharge. Chronic diastolic heart failure. #Hypertension: on amlldipine and HCTZ as well as losartan DVT prophylaxis: already on therapeutic lovenox Code status: full code * Patient counseled extensively about different types of CODE STATUS including full code, DNR CCA and DNR CCA. Patient elects to be (). Total [id number] time () minutes. Charges/Coding Visit Charges Inpatient E&M: 94452 Subs Hosp L2
--- NOTE | 2022-12-09 13:30 | EKG12_ITS ---
Test Reason : DYSRHYTHMIA Blood Pressure : / mmHG Vent. Rate : 090 BPM Atrial Rate : 090 BPM P-R Int : 164 ms QRS Dur : 114 ms QT Int : 406 ms P-R-T Axes : 070 -70 069 degrees QTc Int : 496 ms Normal sinus rhythm Left axis deviation Prolonged QT Abnormal ECG Confirmed by LUZ DRIVER, AUSTIN ([id number]), newspaper or periodical editor CHARO VALDEZ ([id number]) on 12/13/2022 9:25:51 AM Referred By: BB Confirmed By:AUSTIN ESCOBAR MD
--- NOTE | 2022-12-09 13:37 | EKG12_ITS ---
Test Reason : post pci Blood Pressure : / mmHG Vent. Rate : 068 BPM Atrial Rate : 068 BPM P-R Int : 154 ms QRS Dur : 118 ms QT Int : 462 ms P-R-T Axes : 078 -68 053 degrees QTc Int : 491 ms Sinus rhythm with occasional Premature ventricular complexes Left axis deviation Non-specific intra-ventricular conduction delay Minimal voltage criteria for LVH, may be normal variant ( [place] product ) Prolonged QT Abnormal ECG When compared with ECG of 08-DEC-2022 23:40, Premature ventricular complexes are now Present Confirmed by DONALD DRIVER, MARYCARMEN ([id number]), writer editor CHARO VALDEZ ([id number]) on 12/15/2022 1:52:52 PM Referred By: Confirmed By:ANAND BENNETT MD
[2022-12-09] MEDS: predniSONE 20 MG Tablet PO (13:49)
[2022-12-09] MEDS: hydroCHLOROthiazide 12.5mg 12.5 MG PO (13:50)
[2022-12-09] MEDS: Cyanocobalamin 500 MCG Tablet 1000 MCG PO (13:50)
[2022-12-09] MEDS: Acetaminophen 325 MG Tablet 650 MG PO ×2 (14:31→20:32)
--- NOTE | 2022-12-09 14:37 | CRPHASE1_ITS ---
Patient Communication Former Patient:: Phase I PHII Cardiac Rehab Discussed with Patient:: Yes Guide to Cardiac Rehab Given to Patient:: Yes Cardiac Rehab Facility Choice List Given to Patient:: Yes Washing Machine Mechanic:: [facility] Cardiac Rehabilitation Info Cardiac Rehabilitation Program Information: Cardiac Rehab The cardiac rehab team at [facility] consists of highly skilled exercise physiologists, nurses, respiratory therapists and physicians working together with you. Our purpose is to help you have a full recovery and achieve the goals you set for yourself. Over the years many of our patients have returned to activities they assumed they would never do again! We can help restore your confidence and motivation to make lifestyle changes that can have a significant impact on your health and quality of life! We can help answer questions and concerns you may have about exercise, lifestyle, medications, diet, stress and anxiety which are common following a hospitalization. WE monitor ECG and vital signs during exercise and discuss your progress with you and report to your physician(s). Cardiac Rehab is proven to help reduce readmissions, improve functional capacity and lower recurrence of problems with your heart. Our Cardiac Rehab program is Certified by the [place] [employer] Pulmonary [employer] (AACVPR) and Accredited by the [employer] through our [facility]. You can contact us at . We invite you to call us with your questions or to get started in our program. If you have other questions or concerns be sure to ask your physician/provider during your follow-up visit. WE look forward to seeing you!
--- NOTE | 2022-12-09 14:38 | CL.I_ITS ---
Patient Name: BOBBY LOVE Study Date: 12/09/2022 Performing: Krzysztof Wiggins MD Ht: 59 inches 149.86 cm : 1940 Wt: 116.6 lbs 52.8 kg Age: 82 Gender: female BSA: 1.47 PROCEDURE(S) PERFORMED IC12-([id number])FARRUKH W/WO PTCA, SINGLE CORONARY ARTERY IC13-([id number])FARRUKH W/WO PTCA, EACH ADD'L ART, SAME MAJOR CLINICAL PROFILE AND CO-MORBIDITIES Indications: Suspected CAD Heart Failure: None Stress/Imaging Stress/Image Study Performed: No Angina Classification Anginal Classification w/in 2 Weeks: CCS I CAD Presentations: Non-STEMI. Symptom onset Date/Time: 12/09/22 Time Not Available CONCLUSIONS Successful FARRUKH to OM1 and mLCx RECOMMENDATIONS DESCRIPTION OF PROCEDURE The patient arrived to the procedure lab. The risks and benefits of the procedure as well as a full description of our services here and current unavailability of surgical backup were fully explained to the patient and/or their significant other prior to the catheterization. The Timeout was completed, verifying the correct patient and procedure. The patient's procedural site was prepped and draped in the usual fashion. Local anesthetic was given subcutaneously to right radial region with Lidocaine 2% Using a modified Seldinger technique,arterial access was obtained via the right radial artery, a 6Fr sheath was inserted. Left Coronary Artery selective angiography was performed in multiple views using a 5 Fr. 4.0 Lowell catheter. Right Coronary Artery selective angiography was then performed in multiple views using a 5 Fr. 4.0 Lowell catheter. Left Ventriculography was performed in JENKINS projection using a 5 Fr. Pigtail catheter. LV to AO pullback pressures were then recorded.The images were reviewed and options discussed. A decision was then made to proceed with an Intervention, IVUS or other adjunct procedure. XB3 Guide catheter was inserted and engaged into the LCA. JL 3.5 Guide catheter was inserted and engaged into the LCA. BMW Wall Guide wire was advanced to the Circumflex. Runthrough Guide wire was advanced to the 1st OM. Emerge 2.5 x 20 Balloon catheter was inserted. Emerge 1.5 x 15 Balloon catheter was inserted. Emerge 1.50 x 15 Balloon catheter was inserted. Balloon catheter was advanced across lesion in the first obtuse marginal, ostial. PTCA balloon inflated at 6 atms for 8 secs. PTCA balloon inflated at 10 atms for 6 secs. Angiogram performed post balloon dilatation. Emerge 2.50 x 20 Balloon catheter was inserted. Balloon catheter was advanced across lesion in the first obuse marginal, ostial. PTCA balloon inflated at 6 atms for 15 secs. PTCA balloon inflated at 6 atms for 20 secs. PTCA balloon inflated at 10 atms for 56 secs. Angiogram performed post balloon dilatation. Orsiro 2.5 x 9 Drug Eluting stent was inserted. Drug Eluting stent was advanced across the lesion in the first obtuse marginal, ostial. Guide wire was repositioned to the Circumflex Orsiro 4.0 x 9 Drug Eluting stent was inserted. Drug Eluting stent was advanced across the lesion in the circumflex, mid. Angiogram performed post stent deployment. Runthrough Guide wire was repositioned to the 1st OM NC Emerge 2.5 x 8 Balloon catheter was inserted. Emerge 2.25 x 8 Balloon catheter was inserted. The arterial sheath was pulled and a TR Band was applied for hemostasis INTERVENTION INFORMATION LESION SITE: 1st OM (Ostial) Lesion Complexity: High/C, chronic total occlusion: No, lesion at bifurcation: Yes, thrombus present: No, lesion length: 15 mm, culprit lesion: Yes, Previously treated lesion: No Pre Stenosis: 99 % Pre intervention CONNOR flow: 2 PROCEDURE: Drug Eluting Stent with pre dilatation. Due to the angle of takeoff of the vessel it was initially difficult to enter with a wire and then with a balloon. We had to use a guideliner inserted into the mLCx to facilitate PTCA. We decided to go with a short stent to try to cover the ostial lesion alone as we had a good angioplasty result with the proximal OM1 lesion. We tried to place the stent exactly at the ostum without extending into the LCx as that could interfere with PCI of the LCx. After FARRUKH to the LCx, there was plaque shift into the OM1. We recrossed into the OM1 with the wire but the balloon did not cross. Post Stenosis: 50 % Post intervention CONNOR flow: 3 Lesion Devices: Shipley .014 190cm BMW Wall Straight Medtronic 6 Fr JL3.5 100cm Guide Catheter Terumo .014 180cm Runthrough Extra Floppy straight Dexter Sci EMERGE MR 2.50x20 BALLOON Dexter Sci EMERGE MR 1.50x15 BALLOON [employer] 6 Slovenian GuideLiner Zenobia Carson MR FARRUKH 2.5x9 LESION SITE: Circumflex (Mid) Lesion Complexity: High/C, chronic total occlusion: No, lesion at bifurcation: Yes, thrombus present: No, lesion length: 7 mm, culprit lesion: Yes, Previously treated lesion: No Pre Stenosis: 90 % Pre intervention CONNOR flow: 3 PROCEDURE: Drug Eluting Stent with pre dilatation. Post Stenosis: 0 % Post intervention CONNOR flow: 3 Lesion Devices: Shipley .014 190cm BMW Wall Straight Medtronic 6 Fr JL3.5 100cm Guide Catheter Terumo .014 180cm Runthrough Extra Floppy straight V[employer] 6 Slovenian GuideLiner Zenobia Carson MR FARRUKH 4.0x9 COMPLICATIONS No Complications PROCEDURE MEDICATIONS Fentanyl 50 mcg IV Versed 1 mg IV Fentanyl 25 mcg IV Versed 1 mg IV Versed 1 mg IV Fentanyl 25 mcg IV Versed 0.5 mg IV Versed 0.5 mg IV Oxygen: 2 L/min via nasal cannula Brilinta 180 mg PO @ 12/09/2022 10:20:27 Heparin given IA 12/09/2022 10:03:40 Heparin 4000 unit(s) IV 12/09/2022 10:25:49 Nitro 100 mcg IC 12/09/2022 10:41:12 Verapamil 2.5mg, Ntg 100mcgs, 3000 units of Heparin given IA 12/09/2022 10:03:40 SUMMARY OF HEMODYNAMIC DATA Time AIR REST ECG 09:43:08 AO 112/66 (86) SA 10:06:24 LV 130/13, 23 10:12:41 LV 127/13, 22 10:12:49 LV 129/12, 31 10:14:09 LV 121/12, 24 10:14:17 LVp 123/13, 23 10:14:23 AOp 134/70 (99) 10:14:30 Signed By Krzysztof Wiggins MD On 12/09/2022 14:38:10 Krzysztof Wiggins MD
--- NOTE | 2022-12-09 14:38 | CRPH1.INSTRU ---
General Education CAD and cardiac anatomy and function:: Patient communicates acknowledgment, Family communicates acknowledgment Explanation of diagnoses and procedures:: Patient communicates acknowledgment, Family communicates acknowledgment Sign/Symptoms of VA:: Patient communicates acknowledgment Antiplatelet therapy: Patient communicates acknowledgment Smoking Patient Nicotine/Smoking Risk Factors Are:: Never smoked Recommendations Include:: Second-hand smoke recommendation Nicotine/Smoking Response Code:: Patient communicates acknowledgment Dyslipidemia Patient Dyslipidemia Risk Factors Are:: Total Cholesterol, Triglycerides, LDL Recommendations Include:: Lipid profile provided, Reviewed NCEP/ATP guidelines, Therapeutic Lifestyle Change dietary guidelines Dyslipidemia Response Code:: Patient communicates acknowledgment Overweight/Obesity Patient Overweight/Obesity Risk Factors Are:: BMI Normal [24-29 & > 65 years old] Overweight/Obesity:: Patient communicates acknowledgment Hypertension Recommendations Include:: Maintain BP <130/85 Hypertension:: Patient communicates acknowledgment Heart Disease Patient Heart Disease Risk Factors Are:: Family history of heart disease < 65 years old Recommendations Include:: Educated family members of their risk Heart Disease Response Code:: Patient communicates acknowledgment Diabetes Patient Diabetes Risk Factors Are:: No documented hx of diabetes Metabolic Syndrome Patient Metabolic Syndrome Risk Factors Are [3 of 5]:: Hypertension, Low HDL <40 [male] or < 50 [female] Recommendations Include:: Reinforce compliance to risk factor modifications Metabolic Syndrome Response Code:: Patient communicates acknowledgment Sedentary Recommendations Include:: Monitored Outpatient Cardiac Rehab Sedentary Response Code:: Patient communicates acknowledgment Stress Recommendations Include:: Identification of stressors, and assessment of coping skills, Stress management techniques Stress Response Code:: Patient communicates acknowledgment
--- NOTE | 2022-12-09 14:50 | CASEMGMT ---
RN CM Face to Face with patient for initial transition planning/care coordination assessment. RN CM introduced self and role at [facility]. Patient lying in bed, alert and oriented, and daughter at bedside. Patient willing to participate in assessment and is able to answer all questions appropriately. Care providers, pharmacy, and demographics verified. Patient wishes to discharge home, denies need for home health at this time. Patient states she has no further needs or concerns at this time. CM to follow for discharge planning needs that may arise. PCP: [facility] Specialists: [place], resident care spec; Amadou caddy/caddie supervisor Preferred Pharmacy: [facility] Insurance: [place] [facility] Prescription Benefit: yes, Brilinta savings card provided to patient Living Will/HPOA: yes, daughter Tammi Simeon LNOK: , daughter Living Arrangements: Patient lives with in a single story condo with no steps to enter. Patient states she is independent at home. Transportation: self, , daughter DME/HHC: Patient has grab bars at home. No previous HHC or SNF. Disposition Plan: Patient to discharge home with family support and follow-up plans in place. Lorie PFEIFFER, RN, CM
--- NOTE | 2022-12-09 16:32 | CHAPLAIN ---
Type of Pastoral Visit ___ Initial Visit ___ Follow-up Visit ___ On-call Visit ___ General Patient Visit ___ Spiritual Assessment ___ Family Conference ___ Bereavement ___ Rapid Response ___ Code Blue ___ Other (describe below) Pastoral Care Referral From ___ Patient ___ Family ___ Nurse ___ Physician ___ Social Work Administrator ___ Osteologist ___ Other (describe below) Sacrament/Intervention ___ Active listening ___ Anointing ___ Anglican ___ Bereavement ___ Communion ___ Eveline exploration ___ ___ Life review ___ Prayer ___ Reconciliation ___ Sacrament of Sick ___ Supportive presence ___ Wedding ___ Other (describe below) Pastoral Comments patient was not in the room; left a calling card
[2022-12-09] MEDS: TICAGRELOR 90 MG TABLET PO (21:44)
[2022-12-10 03:44] VITALS: BP 140/88; PULSE 73; RESP 16; TEMP 36.6; O2SAT 96
[2022-12-10 05:06] VITALS: BP 120/88; PULSE 76
[2022-12-10 05:56] VITALS: BP 147/81; PULSE 66; RESP 18; TEMP 36.4; O2SAT 98
[2022-12-10 08:14] VITALS: O2SAT 95
[2022-12-10 08:14] LABS: Hematocrit 37.4 % (37-47); Hemoglobin 12.2 g/dL (12.0-15.0); Mean Corp Hgb Conc 32.6 g/dL (32-36); Mean Corpuscular Hgb 30.6 pg (27.0-32.0); Mean Corpuscular Volume 93.7 fL (81-99); Mean Platelet Vol. 9.7 fl (6.2-12.0); Platelet Count 251 K/mm3 (150-450); RBC Distribution Width CV 13.2 % (11.6-14.6); RBC Distribution Width SD 45.3 fl (35.1-43.9); Red Blood Count 3.99 M/mm3 (4.2-5.4); White Blood Count 10.3 K/mm3 (4.4-11.0)
[2022-12-10 08:31] LABS: ALB/GLOB Ratio 1.1 RATIO (0.9-2.4); AST(SGOT) 24 U/L (15-37); Alanine Aminotransfer ALT/SGPT 21 U/L (13-56); Albumin, Serum 3.4 g/dL (3.2-5.0); Alkaline Phosphatase 61 U/L (45-117); Anion Gap 8 (5-15); BUN 15 mg/dL (7-18); BUN/Creat Ratio 14.6 RATIO (10-20); Calcium,Total 8.4 mg/dL (8.5-10.1); Chloride 109 mmol/L (98-107); Creatinine, Serum 1.03 mg/dL (0.55-1.02); EST Glomerular Filtration Rate 55 mL/min (>60); Est Glom Filt Rate - Afr Amer 66 mL/min (>60); Estimated Creatinine Clearance 36.31 ml/min; Glucose 118 mg/dL (74-106); Potassium 3.3 mmol/L (3.5-5.1); Protein, Total 6.4 g/dL (6.4-8.2); Sodium Level 141 mmol/L (136-145)
[2022-12-10] MEDS: TICAGRELOR 90 MG TABLET PO (09:12)
[2022-12-10] MEDS: amLODIPine 10 MG Tablet PO (09:12)
[2022-12-10] MEDS: predniSONE 20 MG Tablet PO (09:12)
[2022-12-10] MEDS: hydroCHLOROthiazide 12.5mg 12.5 MG PO (09:12)
[2022-12-10] MEDS: Cyanocobalamin 500 MCG Tablet 1000 MCG PO (09:12)
[2022-12-10] MEDS: Enoxaparin 60 MG/0.6 ML Syringe 50 MG SC (09:13)
--- NOTE | 2022-12-10 10:00 | EKG12_ITS ---
Test Reason : AM EKG Blood Pressure : / mmHG Vent. Rate : 066 BPM Atrial Rate : 066 BPM P-R Int : 140 ms QRS Dur : 112 ms QT Int : 432 ms P-R-T Axes : 076 -71 055 degrees QTc Int : 452 ms Normal sinus rhythm Left axis deviation Incomplete right bundle branch block Poor R wave progression Moderate voltage criteria for LVH, may be normal variant ( R in aVL , [place] product ) Abnormal ECG Confirmed by CHANTELLE DRIVER, ERMA ([id number]), state editor CHARO VALDEZ ([id number]) on 12/14/2022 9:58:33 AM Referred By: Confirmed By:ERMA LOCKHART MD
[2022-12-10 10:12] VITALS: BP 124/70; PULSE 77; RESP 16; TEMP 36.6; O2SAT 98
--- NOTE | 2022-12-10 10:15 | PN.CARD_ITS ---
Subjective Subjective Patient seen and evaluated. Doing well chest pain-free. Has mild bruising on the right arm Objective Data Vital Signs: Vital Signs Temp Pulse Resp BP Pulse Ox O2 Del Method 97.5 F L 66 18 147/81 H 98 Room Air 12/10/22 05:56 12/10/22 05:56 12/10/22 05:56 12/10/22 05:56 12/10/22 05:56 12/10/22 05:56 Oxygen Delivery Method Room Air Weight: 116 lb 6.465 oz Body Mass Index (BMI) 23.5 Intake & Output: Intake and Output for Last 24 Hours 12/08/22 12/09/22 12/10/22 23:59 23:59 23:59 Intake Total 13.65 / 13.65 3477.5 / 3477.5 Balance 13.65 / 13.65 3477.5 / 3477.5 Lab / Micro Data Result Diagrams: 12/10/22 07:17 12/10/22 07:17 Labs: Laboratory Results - last 24 hr 12/10/22 07:17: WBC 10.3, RBC 3.99 L, Hgb 12.2, Hct 37.4, MCV 93.7, MCH 30.6, MCHC 32.6, RDW Std Deviation 45.3 H, RDW Coeff of Lyla 13.2, Plt Count 251, MPV 9.7 12/10/22 07:17: Sodium 141, Potassium 3.3 L, Chloride 109 H, Carbon Dioxide 24.0, Anion Gap 8, BUN 15, Creatinine 1.03 H, Estim Creat Clear Calc 36.31, Est GFR (MDRD) Af Amer 66, Est GFR (MDRD) Non-Af 55 L, BUN/Creatinine Ratio 14.6, Glucose 118 H, Calcium 8.4 L, Total Bilirubin 1.10 H, AST 24, ALT 21, Alkaline Phosphatase 61, Total Protein 6.4, Albumin 3.4, Globulin 3.0, Albumin/Globulin Ratio 1.1 Rhythm Strip Rhythm Strip: Sinus Rhythm Rate: 90 Ectopy: None Cardiology Labs/Tests 12/10/22 07:17: WBC 10.3, RBC 3.99 L, Hgb 12.2, Hct 37.4, MCV 93.7, MCH 30.6, MCHC 32.6, Plt Count 251, MPV 9.7 12/10/22 07:17: Sodium 141, Potassium 3.3 L, Chloride 109 H, Carbon Dioxide 24.0, Anion Gap 8, BUN 15, Creatinine 1.03 H, Est GFR (MDRD) Af Amer 66, Est GFR (MDRD) Non-Af 55 L, BUN/Creatinine Ratio 14.6, Glucose 118 H, Calcium 8.4 L, Total Bilirubin 1.10 H Rhythm: EKG: ECHO: Stress Test: Cardiac Cath: PCI: CT Surgery: Holter monitor: EPS: PPM: CXR: Chest CT Scan: Radiography Diagnostic Testing: Radiology Impression Echocardiogram 12/09/22 05:55 Interpretation Summary Normal LV size. Left ventricular systolic function is normal. The estimated ejection fraction is 60 %. Mild focal aortic valve calcification. Stage 1 diastolic dysfunction. Ordering Physician: Susanna Cabrera Referring Physician: Kyara Odonnell M.D. Performed By: Huang Tsang RCS Physical Exam Const alert, oriented x3 and no apparent distress General Appearance: cooperative HEENT normocephalic, head/scalp atraumatic, hearing grossly normal bilaterally and mo ist oral mucous membranes Mouth: oral and palatal mucosa normal Eyes PERRL, EOMs intact bilaterally and conjunctivae normal Resp normal respiratory effort, no retractions, no use of accessory muscles and clear to auscultation bilaterally Cardio regular rate, regular rhythm, S1 normal heart sound and S2 normal heart sound Heart Sounds: murmur systolic II/ soft early GI normal to inspection, nondistended, normoactive bowel sounds, soft to palpation and non-tender Extremity normal to inspection, full ROM and no clubbing, cyanosis or edema Neuro oriented x3, CN's II-XII intact bilaterally, moves all extremities and no focal motor deficits Sensorium / Orientation: awake, alert, oriented to person, oriented to place and oriented to time Motor Exam: strength 5/5 throughout Psych affect normal Assessment & Plan Assessment/Plan (1) NSTEMI, initial episode of care: PLAN: She presents with bilateral arm discomfort and is noted to have mildly abnormal cardiac enzymes. Catheterization demonstrated the following: Normal left main coronary artery. Left anterior descending artery which is calcified with moderate 60 to 70% stenosis. Dominant left circumflex artery with a prominent first obtuse marginal branch with to 90% stenosis in the mid circumflex artery with an 80% stenotic lesion. Nondominant right coronary artery. Preserved left ventricular systolic function. Based on the above angiographic findings she underwent PCI to the circumflex artery. Residual disease is noted in the obtuse marginal branch. This can be managed with medication. (2) HTN (hypertension): PLAN: Her blood pressure appears to be mildly elevated on presentation. I would recommend we optimize her medical therapy. Depending on the findings further recommendations will be made. Will recommend the addition of Toprol-XL 25 mg a day (3) HLD (hyperlipidemia): PLAN: She does have a history of hyperlipidemia. We will continue with aggressive risk factor modification.
--- NOTE | 2022-12-10 11:05 | DCINST_ITS ---
Discharge Instructions Diet Discharge Diet: Low fat / Low cholesterol and 2000 mg Sodium Diet Activity Discharge Activity: Return to Normal Activity Weight Bearing Status: Weight bearing as tolerated Dressing / Incision Call your doctor if you observe: Fever of 101 or Higher, Coldness, Increased Pain, Numbness or Tingling, Change in Color, Inability to urinate, Inability to have a bowel movement, Using more than 1 pad per hour, Shortness of breath, Dizziness, Fainting spells, Swelling in the ankles, Chest pain, Prolonged hiccupping, Increased palpitations (irregular heartbeat) and Calf discomfort Follow Up Care When: IN 2 WEEKS Test Results: Test results from this visit will be discussed in further detail at your follow- up appointment, if applicable. Discharge Plan Admission Admit Date/Time: 12/08/22 21:37 Primary Reason for Your Visit: Acute coronary syndrome, non-STEMI Attending Provider: Mukund Dalton Primary Care Provider: Kyara Odonnell Consulting Providers: Raya Boo ; Susanna Cabrera Discharge Orders/Prescriptions Prescriptions: New nitroglycerin 0.4 mg Tablet, Sublingual 0.4 mg sublingual Q5M PRN (Reason: Chest pain) Qty: 30 0RF Brilinta 90 mg Tablet 90 mg PO BID Qty: 60 2RF metoprolol succinate [Toprol XL] 25 mg tablet extended release 24 hr 25 mg PO DAILY Qty: 30 2RF Continued aspirin 81 MG tablet,chewable 81 mg PO QHS Label Comments: HEART/BLOOD THINNER calcium citrate-vitamin D3 1 EACH tablet 1 ea PO BID Label Comments: VITAMIN vitamin E (dl, acetate) 400 UNITS capsule 400 units PO BID Label Comments: VITAMIN Glucosamine Relief 500 MG capsule 1,000 mg PO BID Label Comments: VITAMIN/HERB multivitamin with folic acid [Thera] 1 TABLET tablet 1 tab PO DAILY Label Comments: VITAMIN cyanocobalamin (vitamin B-12) 1,000 MCG capsule 1,000 mcg PO DAILY hydrochlorothiazide 25 MG tablet 12.5 mg PO DAILY Qty: 30 0RF prednisone 20 mg Tablet 20 mg PO DAILY amlodipine 5 mg tablet 10 mg PO DAILY losartan 100 mg tablet 100 mg PO QHS Referrals / Follow Up: Kyara Odonnell MD [Primary Care Provider] - Disposition Disposition (needs filled in before D/C Order can be placed): Home, Self Care
--- NOTE | 2022-12-10 11:23 | DS.PCM_ITS ---
Providers Date of Admission: 12/08/22 Date of Discharge: 12/10/22 Primary Care Physician: Dr. Kyara Odonnell MD Consultations 12/09/22 02:26 Consult: Cardiology Routine Consulting Provider: Raya Boo Reason for Consult: nstemi EMERGENT Consult: No MD Notified: Yes Date Notified: 12/09/22 Time Notified: 02:26 Method of Notification: Text Reason For Visit: NSTEMI Diagnosis Discharge Diagnosis (1) NSTEMI, initial episode of care: Status: Acute Code(s): I21.4 - Non-ST elevation (NSTEMI) myocardial infarction (2) HTN (hypertension): Status: Chronic Code(s): I10 - Essential (primary) hypertension (3) HLD (hyperlipidemia): Status: Acute Code(s): E78.5 - Hyperlipidemia, unspecified Plan This 82-year-old female was admitted with chest pain started on the night of admission, radiating to both upper arms without aggravating, relieving or precipitating factor. She has also had associated shortness of breath but denied nausea palpitation or vomiting. Her troponins were high. Her hospital course, diagnosis and management as follows: 1. Non-STEMI * Patient was admitted to PCU. First troponin is 158 , Serial troponin shows high troponins 218 and 242. On aspirin. Patient was on IV heparin drip before in the ER. Gym Manager was consulted. Twelve-lead EKG does not show acute changes. Last stress test in February 2021 was normal 2D echo also from February 2021 showed EF of 65% with mild aortic stenosis. Patient is allergic to all statin with pain in the joints and myalgia even pravastatin. Patient states Dr. Clement takes care of it. Recommend to try Vascepa as an outpatient as it might need prior authorization. * Cardiac cath showed large obtuse marginal branch 90% stenotic lesions. Mid circumflex 90 stent. Distal circumflex no significant stenosis * Echo showed EF 60% and systolic function normal. Stage I diastolic dysfunction suggestive of Chronic diastolic heart failure. Patient is discharged home. Toprol-XL 25 mg daily added. Fasting profile shows triglyceride 215, LDL 109. #Hypertension: on amlldipine and HCTZ as well as losartan DVT prophylaxis: already on therapeutic lovenox Code status: full code Discharge medication reconciliation done. Discharge follow-up instructions completed. Discharge process discussed with the patient and all questions were answered to patient's satisfaction. Total time spent, exact 35 minutes on discharge meds reconciliation, examination, coordination of care with nurses and ancillary staff, review of i maging and blood test and discussion with the patient on follow-up instructions. Medications at Discharge Home Medications aspirin 81 mg chewable tablet 81 mg PO QHS [facility] 02/15/14 calcium citrate 250 mg calcium-vitamin D3 5 mcg (200 unit) tablet 1 ea PO BID supplement 02/15/14 glucosamine sulfate 2KCl 500 mg capsule (Glucosamine Relief) 1,000 mg PO BID supplement 02/15/14 multivitamin with folic acid 400 mcg tablet (Thera) 1 tab PO DAILY supplement 02/15/14 vitamin E (dl, acetate) 180 mg (400 unit) capsule 400 units PO BID supplement 02/15/14 cyanocobalamin (vitamin B-12) 1,000 mcg capsule 1,000 mcg PO DAILY supplement 11/30/17 hydrochlorothiazide 25 mg tablet 12.5 mg PO DAILY ##30 12/03/17 amlodipine 5 mg tablet 10 mg PO DAILY blood pressure 12/08/22 losartan 100 mg tablet 100 mg PO QHS blood pressure 12/08/22 prednisone 20 mg tablet 20 mg PO DAILY inflammation 12/08/22 metoprolol succinate 25 mg tablet,extended release 24 hr (Toprol XL) 25 mg PO DAILY #30 tabs 12/10/22 nitroglycerin 0.4 mg sublingual tablet 0.4 mg sublingual Q5M PRN Chest pain #30 tabs 12/10/22 ticagrelor 90 mg tablet (Brilinta) 90 mg PO BID #60 tabs 12/10/22 Physical Exam Narrative Seen and examined after cardiac cath. Physical exam General: Alert, Oriented x3, Cooperative HEENT: Atraumatic, PERRLA, EOMI, Normocephalic Oral: No Gingival or Mucosal Lesions/ Ulcerations Neck: Supple, No JVD, Negative Carotid Bruits Lungs: Air entry diminished in bilateral lung bases. No crepitation/rhonchi Cardiovascular: Regular rate, Regular Rhythm, Normal S1, Normal S2, No murmurs Abdomen: Bowel Sounds Present, Soft, Non Tender, Non-Distended : No renal angle tenderness. No suprapubic tenderness. Extremities: 1+ bilateral ankle pitting edema, Capillary Refill Less than 3 Seconds Skin: Mild bruise over along the right radial artery improving. Mild petechial rash. Seems mild hematoma, not enlarged new or worsening. Musculoskeletal: No Tenderness to Palpation of Joints or Extremities Neurological: Cranial nerves II-XII grossly intact, DTR 2+/4 and Symmetrical, Neuro grossly intact Psych/Mental Status: Normal Affect, Appropriate. Weight / BMI Weight Weight: 116 lb 6.465 oz Body Mass Index (BMI) 23.5 ABG / Lab / Microbiology Data Result Diagrams: 12/10/22 07:17 12/10/22 07:17 Laboratory: Laboratory Results - last 24 hr 12/10/22 07:17: WBC 10.3, RBC 3.99 L, Hgb 12.2, Hct 37.4, MCV 93.7, MCH 30.6, MCHC 32.6, RDW Std Deviation 45.3 H, RDW Coeff of Lyla 13.2, Plt Count 251, MPV 9.7 12/10/22 07:17: Sodium 141, Potassium 3.3 L, Chloride 109 H, Carbon Dioxide 24.0, Anion Gap 8, BUN 15, Creatinine 1.03 H, Estim Creat Clear Calc 36.31, Est GFR (MDRD) Af Amer 66, Est GFR (MDRD) Non-Af 55 L, BUN/Creatinine Ratio 14.6, Glucose 118 H, Calcium 8.4 L, Total Bilirubin 1.10 H, AST 24, ALT 21, Alkaline Phosphatase 61, Total Protein 6.4, Albumin 3.4, Globulin 3.0, Albumin/Globulin Ratio 1.1 D/C Instructions Discharge Diet: Low fat / Low cholesterol and 2000 mg Sodium Diet Weight Bearing Status: Weight bearing as tolerated Call your doctor if you observe: Fever of 101 or Higher, Coldness, Increased Pain, Numbness or Tingling, Change in Color, Inability to urinate, Inability to have a bowel movement, Using more than 1 pad per hour, Shortness of breath, Dizziness, Fainting spells, Swelling in the ankles, Chest pain, Prolonged hiccupping, Increased palpitations (irregular heartbeat) and Calf discomfort When: IN 2 WEEKS Meaningful Use Info Meaningful Use Diagnoses (Choose all that apply): None applicable and AMI AMI/Post PCI/Angioplasty Aspirin given w/in 24hrs of arrival?: Yes ASA at discharge?: Yes Statins at discharge?: Yes Domenic/ARB at discharge?: Yes Beta Shereen at discharge?: Yes Done w/ Acute [place] measure.: Yes Discharge Plan Admission Admit Date/Time: 12/08/22 21:37 Primary Reason for Your Visit: Acute coronary syndrome, non-STEMI Attending Provider: Mukund Dalton Primary Care Provider: Kyara Odonnell Consulting Providers: Raya Boo ; Susanna Cabrera Discharge Orders/Prescriptions Prescriptions: New nitroglycerin 0.4 mg Tablet, Sublingual 0.4 mg sublingual Q5M PRN (Reason: Chest pain) Qty: 30 0RF Brilinta 90 mg Tablet 90 mg PO BID Qty: 60 2RF metoprolol succinate [Toprol XL] 25 mg tablet extended release 24 hr 25 mg PO DAILY Qty: 30 2RF Continued aspirin 81 MG tablet,chewable 81 mg PO QHS Label Comments: HEART/BLOOD THINNER calcium citrate-vitamin D3 1 EACH tablet 1 ea PO BID Label Comments: VITAMIN vitamin E (dl, acetate) 400 UNITS capsule 400 units PO BID Label Comments: VITAMIN Glucosamine Relief 500 MG capsule 1,000 mg PO BID Label Comments: VITAMIN/HERB multivitamin with folic acid [Thera] 1 TABLET tablet 1 tab PO DAILY Label Comments: VITAMIN cyanocobalamin (vitamin B-12) 1,000 MCG capsule 1,000 mcg PO DAILY hydrochlorothiazide 25 MG tablet 12.5 mg PO DAILY Qty: 30 0RF prednisone 20 mg Tablet 20 mg PO DAILY amlodipine 5 mg tablet 10 mg PO DAILY losartan 100 mg tablet 100 mg PO QHS Referrals / Follow Up: Kyara Odonnell MD [Primary Care Provider] - Disposition Disposition (needs filled in before D/C Order can be placed): Home, Self Care Charges/Coding Visit Charges Inpatient E&M: 50521 Disch Hosp >30min
[2022-12-10 11:41] VITALS: BP 133/80; PULSE 83; RESP 18; TEMP 36.4; O2SAT 94
[2022-12-10 12:11] LABS: Cholesterol 195 mg/dL (200); High Density Lipoprotein 43 mg/dL; Triglycerides 215 mg/dL; Very Low Density Lipoprotein 43 mg/dL (5-40)
== END 2022-12-10 13:52 | disposition home or self-care (01) | DRG 246 ==
LOC: ED 21:38 → PCU 21:48
PROVIDERS: Specialist; Admitting Provider Student in an Organized Health Care Education/Training Program; Emergency Provider Emergency Medicine; PCP Family Medicine; Visit Provider Internal Medicine
DX: I21.4 Non-ST elevation (NSTEMI) myocardial infarction (principal); I50.32 Chronic diastolic (congestive) heart failure; I11.0 Hypertensive heart disease with heart failure; E78.00 Pure hypercholesterolemia, unspecified; I70.0 Atherosclerosis of aorta; I35.0 Nonrheumatic aortic (valve) stenosis; Z79.82 Long term (current) use of aspirin; Z66 Do not resuscitate
CPT/HCPCS: 36415; 71046; 80048; 80053; 80061; 84484; 85025; 85027; 85730; 92928; 92929; 93005; 93306; 93458; 99152; 99153; 99285; C1874; J7030; Q9967; A4216; C1725; C1769; C1887; C1894; C9600; C9601; J1327

== ENCOUNTER 2022-12-15 00:07 | Emergency (ER) | payer MEDICARE, SELFPAY ==
[2022-12-15 00:12] VITALS: BP 175/82; PULSE 70; RESP 16; TEMP 36; O2SAT 100; BMI 25.0
[2022-12-15 00:31] VITALS: BP 143/81; PULSE 72; RESP 16; O2SAT 100
--- NOTE | 2022-12-15 00:34 | EKG12_ITS ---
Test Reason : DYSRHYTHMIA Blood Pressure : / mmHG Vent. Rate : 066 BPM Atrial Rate : 066 BPM P-R Int : 138 ms QRS Dur : 114 ms QT Int : 410 ms P-R-T Axes : 078 -68 056 degrees QTc Int : 429 ms Normal sinus rhythm Left axis deviation Abnormal ECG Confirmed by DONALD DRIVER, MARYCARMEN ([id number]), web editor CHARO VALDEZ ([id number]) on 12/15/2022 1:42:32 PM Referred By: SUSANNE Confirmed By:ANAND BENNETT MD
[2022-12-15 00:54] LABS: Anion Gap 7 (5-15); BUN 29 mg/dL (7-18); BUN/Creat Ratio 26.4 RATIO (10-20); Calcium,Total 8.8 mg/dL (8.5-10.1); Chloride 107 mmol/L (98-107); EST Glomerular Filtration Rate 51 mL/min (>60); Est Glom Filt Rate - Afr Amer 62 mL/min (>60); Estimated Creatinine Clearance 36.25 ml/min; Glucose 100 mg/dL (74-106); Potassium 3.8 mmol/L (3.5-5.1); Sodium Level 140 mmol/L (136-145)
--- NOTE | 2022-12-15 01:24 | EX.ED.DYSGE1 ---
HPI History of Present Illness Chief Complaint: Hypertension Narrative Narrative: 82-year-old female with past medical history of hypertension and hyperlipidemia as well as unstable angina and non-STEMI he recently had 2 stents placed roughly 1 to 2 weeks ago. She states that she took her blood pressure this evening and it was elevated at 193/100 at home this evening. She states with this there is been no symptoms such as chest pain headache change in vision nausea vomiting or shortness of breath. She reports this concerned her based on her recent heart attack and stent placement and therefore he contacted her button maker and installer who advised her to take her nighttime losartan. Patient states she took this but still folic her blood pressure was elevated so she comes to the hospital for evaluation. She denies any excessive stimulant use or illicit drug use [facility] Medical History (Updated 12/15/22 @ 01:[address] Virgil Bazzi, ) Essential hypertension HLD (hyperlipidemia) Myocardial infarct Sensorineural hearing loss Home Medications aspirin 81 mg chewable tablet 81 mg PO QHS heart health 02/15/14 [History Last Taken 11/29/17] calcium citrate 250 mg calcium-vitamin D3 5 mcg (200 unit) tablet 1 ea PO DAILY supplement 02/15/14 [History Last Taken Unknown] glucosamine sulfate 2KCl 500 mg capsule (Glucosamine Relief) 1,000 mg PO BID supplement 02/15/14 [History Last Taken 11/29/17] multivitamin with folic acid 400 mcg tablet (Thera) 1 tab PO DAILY supplement 02/15/14 [History Last Taken 11/29/17] vitamin E (dl, acetate) 180 mg (400 unit) capsule 400 units PO BID supplement 02/15/14 [History Last Taken 11/29/17] cyanocobalamin (vitamin B-12) 1,000 mcg capsule 1,000 mcg PO DAILY supplement 11/30/17 [History Last Taken 11/29/17] hydrochlorothiazide 25 mg tablet 12.5 mg PO DAILY ##30 12/03/17 [Rx Last Taken Unknown] amlodipine 5 mg tablet 10 mg PO DAILY blood pressure 12/08/22 [History Last Taken Unknown] losartan 100 mg tablet 100 mg PO QHS blood pressure 12/08/22 [History Last Taken Unknown] prednisone 20 mg tablet 20 mg PO DAILY inflammation 12/08/22 [History Last Taken Unknown] metoprolol succinate 25 mg tablet,extended release 24 hr (Toprol XL) 25 mg PO DAILY #30 tabs 12/10/22 [Rx Last Taken Unknown] nitroglycerin 0.4 mg sublingual tablet 0.4 mg sublingual Q5M PRN Chest pain #30 tabs 12/10/22 [Rx Last Taken Unknown] ticagrelor 90 mg tablet (Brilinta) 90 mg PO BID #60 tabs 12/10/22 [Rx Last Taken Unknown] potassium chloride 20 mEq tablet,extended release 20 meq PO DAILY just for 3 days #3 tabs 12/13/22 [Rx Last Taken Unknown] MODUCHOL PO/SL BID 12/15/22 [History Last Taken Unknown] Allergy/AdvReac Type Severity Reaction Status Date / Time [id number]-[id number] Reductase Allergy Severe Pain in Verified 12/08/22 23:51 Inhibitor joints Penicillins Allergy Unknown Verified 08/09/21 07:09 Surgical History (Updated 12/15/22 @ 01:[address] Virgil Bazzi DO) H/O: hysterectomy History of cholecystectomy History of coronary artery stent placement (12/09/22) Social History Smoking Status: Never smoker ROS ROS ED Constitutional Constitutional ED: Denies chills or fever(s) Eyes Eyes: Denies change in vision ENT ENT ED: Denies sore throat Cardiovascular Cardiovascular: Denies chest pain, palpitations or racing heartbeat Respiratory/Chest Respiratory/Chest: Denies cough or dyspnea Gastrointestinal Gastrointestinal: Denies abdominal pain, diarrhea, nausea or vomiting Genitourinary Genitourinary ED: Denies dysuria Musculoskeletal Musculoskeletal: Denies myalgias Integumentary Denies rash Neurologic Neurologic: Denies headache(s) Hematologic/Lymphatic Hematologic/Lymphatic: Reports easy bleeding and easy bruising EXAM Physical Exam Const Vital Signs: 12/15/22 00:12 12/15/22 00:31 12/15/22 01:29 Temperature 96.8 F L Temperature Source Oral Pulse Rate 70 72 65 Respiratory Rate 16 16 16 Blood Pressure 175/82 H 143/81 H 145/81 H Blood Pressure Mean 113 101 Pulse Ox 100 100 98 Oxygen Delivery Method Room Air Room Air Positive well nourished and well developed General Appearance ED: well developed HEENT Reports moist mucous membranes Eyes PERRL and EOMs intact bilaterally Neck supple and no JVD Neck Narrative: No carotid bruit noted Chest Wall palpation of chest normal Resp normal respiratory effort and clear to auscultation bilaterally Cardio regular rate and regular rhythm Rate: other Other Details: Radial pulses are plus 2 out of 4 bilaterally are equal and symmetric Carotid pulses equal and symmetric as well GI normal to inspection, nondistended, normoactive bowel sounds, non-tender, non-distended and no masses GI Narrative: No voluntary guarding or rigidity no pulsatile mass or fluid wave Auscultation: normoactive bowel sounds Palpation: soft Extremity normal to inspection Extremity Narrative: Trace edema to the bilateral lower extremities that is equal and symmetric with negative Homans' sign bilaterally Neuro oriented x3, CN's II-XII intact bilaterally and no sensory deficits noted Sensorium / Orientation: alert Psych mental status grossly normal Skin no rashes or lesions noted MDM MDM MDM Narrative Medical decision making narrative: Patient arrived to the ER and initial blood pressure was elevated but improved from what she reported at home. Otherwise she is awake alert and oriented with normal neurologic exam and no report or physical exam findings of endorgan damage. As she does not have headache change in vision or change in mental status I do not feel there is a need for head CT. As she recently had stents placed I do not believe a troponin is warranted as this will most likely be elevated from the procedure. An EKG was obtained that shows no signs of dysrhythmia or cardiac damage which is consistent with her report of no chest pain diaphoresis or shortness of breath. Basic blood work was ordered to make sure there is no signs of acute kidney injury and creatinine is just slightly elevated at 1.1 but chart review reveals this is near patient's baseline. Without any medication in the ER just her home losartan that she took prior to arrival the blood pressure reduced by approximately 25% systolically which is the value we are shooting for in the ER reduction between 15 to 25%. On reevaluation she remained symptom-free and blood pressure remains reduced between the acceptable range. Therefore at this time with negative work-up and improvement of her blood pressure she is otherwise safe for discharge Lab Data Attestation: I reviewed the patient's lab results. Labs: Laboratory Results - last 24 hr 12/15/22 00:17 Sodium 140 Potassium 3.8 Chloride 107 Carbon Dioxide 26.0 Anion Gap 7 BUN 29 H Creatinine 1.10 H Estim Creat Clear Calc 36.25 Est GFR (MDRD) Af Amer 62 Est GFR (MDRD) Non-Af 51 L BUN/Creatinine Ratio 26.4 H Glucose 100 Calcium 8.8 Discharge Plan Triage Chief Complaint: Hypertension ED Provider: Virgil Bazzi Dx/Rx/DC Orders Clinical Impression: Accelerated hypertension, History of coronary artery stent placement, HLD (hyperlipidemia) Instructions: ED Hypertension, Established Prescriptions: No Action aspirin 81 MG tablet,chewable 81 mg PO QHS Label Comments: HEART/BLOOD THINNER calcium citrate-vitamin D3 1 EACH tablet 1 ea PO DAILY Label Comments: VITAMIN vitamin E (dl, acetate) 400 UNITS capsule 400 units PO BID Label Comments: VITAMIN Glucosamine Relief 500 MG capsule 1,000 mg PO BID Label Comments: VITAMIN/HERB multivitamin with folic acid [Thera] 1 TABLET tablet 1 tab PO DAILY Label Comments: VITAMIN cyanocobalamin (vitamin B-12) 1,000 MCG capsule 1,000 mcg PO DAILY hydrochlorothiazide 25 MG tablet 12.5 mg PO DAILY Qty: 30 0RF prednisone 20 mg Tablet 20 mg PO DAILY amlodipine 5 mg tablet 10 mg PO DAILY nitroglycerin 0.4 mg Tablet, Sublingual 0.4 mg sublingual Q5M PRN (Reason: Chest pain) Qty: 30 0RF Brilinta 90 mg Tablet 90 mg PO BID Qty: 60 2RF metoprolol succinate [Toprol XL] 25 mg tablet extended release 24 hr 25 mg PO DAILY Qty: 30 2RF MODUCHOL PO/SL BID losartan 100 mg tablet 100 mg PO QHS potassium chloride 20 mEq tablet extended release 20 meq PO DAILY Qty: 3 0RF Primary Care Provider: Kyara Odonnell Referrals: Kyara Odonnell MD [Primary Care Provider] - Activity Restrictions/Additional Instructions: Your work-up today showed no signs of heart damage or kidney damage. Please continue to take your medications as directed by your doctor and return to the ER should you have any further concerns Disposition Disposition: Home, Self Care Discharge Date/Time: 12/15/22 01:36
[2022-12-15 01:29] VITALS: BP 145/81; PULSE 65; RESP 16; O2SAT 98
== END 2022-12-15 01:36 | disposition home or self-care (01) ==
PROVIDERS: Emergency Provider Emergency Medicine; PCP Family Medicine; Visit Provider Emergency Medicine
DX: I10 Essential (primary) hypertension (principal); E78.5 Hyperlipidemia, unspecified; Z95.5 Presence of coronary angioplasty implant and graft; I25.2 Old myocardial infarction; Z79.82 Long term (current) use of aspirin
CPT/HCPCS: 80048; 93005; 99282; A4216

== ENCOUNTER → 2022-12-19 | Outpatient (CLI) | payer MEDICARE, SELFPAY ==
--- NOTE | 2022-12-19 09:37 | PCM.CR.HP2 ---
CR - History & Physical - General Arrival date:: 12/19/22 Arrival time:: 09:38 Date of Referral:: 12/09/22 Date of CR Evaluation:: 12/19/22 Referring Physician: Dr. Mustapha Clement Primary Diagnosis: PCI with coronary stent - History of Present Cardiac Event Onset Date: Enter Onset Date of cardiac illnesses in Comment field below PTCA or coronary stenting:: Yes - 12/09/22 - Sleep Disorder Evaluation Hx of Sleep Apnea: No Do you snore loudly (louder than talking or can be heard through closed doors)?: No Do you often feel tired/ fatigued/ sleepy during daytime?: No Has anyone observed you stop breathing during sleep?: No History of Hypertension (for STOP score): Yes STOP Results: Negative - Medications Home Medications: Ambulatory Orders Medication Instructions Recorded aspirin 81 mg chewable tablet 81 mg PO QHS heart health 02/15/14 calcium citrate 250 mg 1 ea PO DAILY supplement 02/15/14 calcium-vitamin D3 5 mcg (200 unit) tablet glucosamine sulfate 2KCl 500 mg 1,000 mg PO BID supplement 02/15/14 capsule (Glucosamine Relief) multivitamin with folic acid 400 1 tab PO DAILY supplement 02/15/14 mcg tablet (Thera) vitamin E (dl, acetate) 180 mg 400 units PO BID supplement 02/15/14 (400 unit) capsule cyanocobalamin (vitamin B-12) 1,000 mcg PO DAILY supplement 11/30/17 1,000 mcg capsule hydrochlorothiazide 25 mg tablet 12.5 mg PO DAILY ##30 12/03/17 amlodipine 5 mg tablet 10 mg PO DAILY blood pressure 12/08/22 losartan 100 mg tablet 100 mg PO QHS blood pressure 12/08/22 prednisone 20 mg tablet 20 mg PO DAILY inflammation 12/08/22 metoprolol succinate 25 mg 25 mg PO DAILY #30 tabs 12/10/22 tablet,extended release 24 hr (Toprol XL) nitroglycerin 0.4 mg sublingual 0.4 mg sublingual Q5M PRN Chest 12/10/22 tablet pain #30 tabs ticagrelor 90 mg tablet (Brilinta) 90 mg PO BID #60 tabs 12/10/22 potassium chloride 20 mEq 20 meq PO DAILY just for 3 days #3 12/13/22 tablet,extended release tabs MODUCHOL PO/SL BID 12/15/22 clopidogrel 75 mg tablet 75 mg PO .COMPLEX #90 tabs 12/16/22 - Allergies Allergies/Adverse Reactions: Allergies [id number] Reductase Inhibitor Allergy (Severe, Verified 12/08/22 23:51) Pain in joints pt gets generalized severe pain Penicillins Allergy (Verified 08/09/21 07:09) Unknown Advanced Directives - Advanced Directives Power of Disaster Response Director: No Living Will: No Advance Directives Information Provided: No Advance Directives on File: No DNR Order?:: No Past Medical History - Covid-19 Screening Has a serious heart condition:: Yes - Past Medical Illness Medical History: Past Medical History (Last Updated 12/15/22 @ 00:18 by Florentino Rush) Essential hypertension I10 HLD (hyperlipidemia) E78.5 intolerant of statins Myocardial infarct I21.9 Sensorineural hearing loss H90.5 Unstable angina I20.0 - Past Surgical History Surgical History: Past Surgical History (Last Updated 12/15/22 @ 00:18 by Florentino Rush) H/O: hysterectomy Z90.710 History of cholecystectomy Z90.49 History of coronary artery stent placement Onset Date: 12/09/22 Z95.5 [place] 2.5 X 9 FARRUKH to first OM ostial, and [place] 4.0 X 9 FARRUKH to CX Surgical History: cataract, cholecystectomy, hysterectomy, tonsillectomy, - Social History - Smoking History Smoking Status: Never smoker Hx Tobacco Use: No - Alcohol Use Alcohol Usage: No - Substance Abuse Hx Substance Use: No - Occupation Occupation (List type of work in comments):: Retired - Hobbies, Recreation, Social Activities Hobbies: Reading Recreational Activities: I am able to engage in all my recreational activities Social Environment - Status Marital Status: - Current Living Arrangements Living Environment:: Spouse - Children How many children do you have?: 4 Do any of your children live nearby?: Yes - Safety Do you feel safe in your surroundings?: Yes - Assistance Do you need any assistance at home?: no Review of Systems - Review of Systems Hints: Right click = Denies (Slash). Left click = Reports (Ullin) Review of Present Symptoms: Reports: Dizziness/Lightheadedness - pt has vertigo. Denies: Shortness of Breath at Rest, Shortness of Breath with Exertion, PVD, Operative Discomfort, Angina, Wound Healing, Fatigue, Heart Arrhythmia/Irregularities, Appetite - Normal, Appetite - Special Diet, Sleep - Normal, Sexual Changes - Pain Is Patient Pain Free?: Yes Risk Factor Assessment - Vital Signs Pulse Ox: 97 - Pulse Pulse Rate: 72 Pulse Rhythm: Regular - Hypertension Blood Pressure Sitting - Left Arm: 116/70 - Stress Stress: Home/Family - Obesity Height: 4 ft 11 in Weight:: 52.617 kg Weight in Pounds: 116.0 lbs Body Mass Index (BMI): 23.4 Nutritional Referral for Obesity: No - Physical Inactivity Physical Inactivity: Reg Exercise 30 min/day - Risk Stratification Risk Guidelines: Lowest Risk: Risk Factor for Smoking, Moderate Risk: Risk Factor for Diabetes, Risk Factor for Obesity, Risk Factor for Sedentary Lifestyle, Risk Factor for Depression, Highest Risk: Risk Factor for Dyslipidemia, Risk Factor for Hypertension Motivation - Motivation to Participate On a scale of 1 to 10, how prepared are you to commit to attending program?: 10 What do you see as barriers to successfully being able to complete the program?: [place] in january What do you see as the benefits of succesfully completing the program? In other words, what do you hope to get out of participating in the program?: more energy, improved health Are there issues you are dealing with that will interfere with completing the program?: no Do you have a spouse or signficant other, family or friends who will help support you to complete the program?: yes
[2022-12-19 10:16] VITALS: BP 116/70; PULSE 72; O2SAT 97; BMI 23.4
--- NOTE | 2022-12-19 10:17 | CR.ITP_ITS ---
Diagnosis - General Information Admitting Diagnosis: PCI with stent Personal Learning Style:: Audio/Visual, Demonstration, Group, Individual Preference, Written Stage of change r/t lifestyle modifications:: Contemplation Gave educational material for:: Treating Heart Disease, Emotions & Heart Disease, Stress Management & Relaxation, Sleep Disorders & Heart Disease, How The Heart Works, What it means to have Heart Disease, How Coronary Artery Disease is Diagnosed, Heart Procedures, What Heart Medications Do, Risk Factors & Modifications, Living an Active Life, Nutrition - Education/Goals Cardiac Rehabilitation Goals: 1. Maintain the individual as the primary focus of care. 2. To improve the patient's quality of life. 3. Identification of cardiac risk factors and provide cardiac risk factor management. 4. Enhance the psychosocial status of the patient. 5. Reconditioning enough to allow the patient to resume customary activities. 6. Control symptoms of cardiac disease Personal Goals: Initial Assessment: Improve energy level, Improve knowledge of cardiac disease, Control risk factors (learn risk factor modification) Scale for measuring improvement of personal goals: Enter appropriate number in Comments. 2 = Unchanged. 3 = Slightly Better. 4 = Moderate Improvement. 5 = Met my Goal - Diagnosis & Disease Process Outcomes/Goals: Pt IDs own risk factors & lifestyle modifications by Session 10, Verbalizes symptoms of angina & response by session 3., Pt independently manages, Other Additional Outcomes/Goals: Plan/Interventions: Assist Pt to ID & engage in lifestyle modification to reduce CVD risk, Instruct on individual risk factors, Review symptoms of angina & emerg ency actions, Review secondary diagnosis & identify educational needs., Other see comment 30 day Reassessments:: Not Met 30 day Reassessments:: Not Met 30 day Reassessments:: Not Met 30 day Reassessments:: Not Met - Safety Referral to Physical Therapy: No Referral to [facility] Case Management: No Fall Risk Assessed:: Yes Assistive Devices:: None Exercise - Initial Assessment - Visit Date of Eval: 12/19/22 - initial eval Mets: Pre-: >3 METS for 30 minutes by discharge, >5 METS for 30 minutes by d ischarge, >7 METS for 30 minutes by discharge, Unable to meet goal due to: (see comment below) - Physician Prescribed Exercise Modalities: Treadmill, Rower, Airdyne, NuStep, SciFit, Lateral [place] Frequency: 3x/week for 12 weeks [36 sessions] Intensity: 60-80% of age predicted maximum heart rate reserve Current METSs:: 3 Target Heart Rate:: 91-105 Resting Blood Pressure: 116/70 - Outcomes & Goals Goals:: Verbalizes understanding of THR, RPE & goal METS by session 6, Documents in home exercise log/reports 30 min aerobic 5 day/wk by DC, Demonstrates accurate pulse taking by DC, Other additional outcome/goals: see below - Intervention & Plan Exercise Program Goals: Instruct on personal THR & RPE, Instruct on MET level & personal MET goal, Show patient to take own pulse /validate performance until accurate, Instruct on home exercise, Other additional plan/int - Physical Activity Home Exercise Physical Activity - Home Exercise: Safe Exercise, Warm-up, Self-monitoring, Cool-Down, Home Exercise > 30 min Daily, Sitting Time <3 hours/daily - Outcomes & Goals Outcomes/Goals: Demonstrates correct Warm-up/exercise Cool-Down (S3) if = 2.5 METs, Verbalizes symptoms of exercise intolerance by Session 3 (S3), Demonstrate safe equipment use (S3) & follows exercise prescrition (6), Other: See below - Intervention & Plan Plan/Intervention: Instruct warm-up & cool-down if exercising at > 2 METs, Instruct on symptoms of exercise intolerance & actions to take, Instruct & monitor on saf, Assess intial functional capacity & safety risk, Other See below Nutrition - Initial Assessment - Program Goals Nutrition Program Goals: LDL <100 optimal. 100 - 129 Near optimal. 130 - 159 Borderline High. 160 - 189 High. Total Cholesterol <200 desirable. 200 - 239 Borderline High. >/= 240 High. HDL < 40 Low >/=60 High. Triglycerides <150 desirable. <199 optimal. VlDL 5 - 40. HgbA1C <7%. BMI <25 Patient has diagnosis of Hyperlipidemia (ICD E78)?: Yes - Visit Date of Assessment:: 12/19/22 - initial eval - Cholesterol/Lipids (Other Core Measures) Determine presence & major risk factors that modify LDL goal: Hypertension or hypertensive medication, Low HDL cholesterol <40 mg/dL*, Family history of premature CHD in Male < 55 years: female <65 yearsFa, Age men > 45 years; women >/= 55 years Outcomes/Goals: Pt IDs own risk factors & lifestyle modifications by Session 10, Verbalizes symptoms of angina & response by session 3., Pt independently manages, Other Additional Outcomes/Goals: Intervention/Plan: Advocate for lipid panel cholesterol medication if applicable, Instruct on personal lipid levels & lipid goals/NCEP guidelines, Instruct on cholesterol, Other additional plan/int Referral to dietitian:: No - Diabetes (Other Core Measures) Diabetes Type: Not Applicable - Weight Mgt (Other Care) Height: 4 ft 11 in Weight:: 52.61 kg BMI: 23.4 Diagnosis Overweight/Obesity BMI> 30% ICD-10 E66: No Diagnosis High BMI/Morbid Obesity BMI> 35% ICD-10 Z68: No Outcomes/Goals: Pt sets, maintains & shows weight loss goal & trend during rehab, Other additional outcomes/goals Intervention/Plan: Instruct on ideal BMI & set weight loss goal w/patient, Assist pt to ID & incorporate diet changes for weight loss by S9, Refer to Structured Weight Loss program as appropriate, Encourage goal of using 250- 300dcal per session for weight loss, Other additional plan/interventions - Healthy Eating Habits Will attend diet classes:: Yes Outcomes/Goals:: Consume diet rich in vegs,fruits,whole grain/high fiber,fish,lean meat, Limit sat/trans fats,cholesterol & added salts & sugars, Other additional outcome/goals: Intervention/Plan:: Assess current eating habits, Other Additional plan/interventions - Education Gave educational materials for:: Signs & symptoms of hypoglycemia, Signs & symptoms of hyperglycemia, Relate diabetes to coronary artery disease, Healthy eating Nutrition - 30-Day Assessment Nutrition - 60-Day Assessment Nutrition - 90-Day Assessment Nutrition - Final Assessment Core - Initial Assessment - Visit Date of Eval: 12/19/22 - initial eval - Medication Compliance Preventative Medication(s):: Aspirin, JS inhibitor, Ticagrelor/P2Y12 inhibitor, Beta yanick H/O mental health issues: depression, anxiety, or addiction?: No Doesn?t believe in the benefits of treatment?: No Believes medications are unnecessary or harmful?: No Has a concern about medication side effects?: No Expresses concern over the cost of medications?: No Outcomes/Goals: Verbalizes medications,desired effect & common side effects @ DC, Pt self-reports following medication regimen, Keeps card in wallet w/medications listed by DC, Other additional outcome/goals: Interventions/plans: Instruct on medication effects & side effects, Review medication list w/patient every two weeks, Instruct importance of taking meds as ordered & assist problem solving, Other additional - Tobacco Use Tobacco Use: Non-smoker - Hypertension Hypertension Diagnosis:: Hypertension ICD-10 I10 Resting Blood Pressure:: 116/70 Citizen [place] [employer] Hypertension Guidelines: Citizen [place] [employer] Hypertension Guidelines. Normal BP Less than 120/80. Elevated BP 120/80. Hypertension Stage 1: BP 130-139/80-89. Hypertesnion Stage 2: BP 140 or higher/90 or higher. Hypertension Crisis: BP higher than 180/120 Outcomes/Goals: Able to verbalize/achieve optimal blood pressure <130/80, Incorporates diet changes & exercise for blood pressure control by DC, Other additional outcomes/goals Interventions/plan: Instruct on optimal blood pressure, hypertension & medications, Instruct on effects of sodium, alcohol, stress, exercise &hypertension, Other additional plan/interventions - Tobacco Cessation Referral Smoking Cessation Referral:: No Individual Education/Counseling:: No Education Schedule Given:: Yes Core - 30-Day Assessment Core - 60-Day Assessment Core - 90 Day Assessment Core - Final Assessment Psychosocial - Initial Assess - VIsit Date of Eval: 12/19/22 - initial eval History of previous Mental disease:: No - Outcomes/Goals: See list Psychosocial Outcomes/Goals:: ID's personal stressors & 2 strategies to manage stress by discharge, Other Additional outcome/goals: - Intervention/Plan: See List Interventions/Plan:: Assess stressors,coping strategies & signs of derpression on admission, Instruct/assist pt to develop coping & personal stress Mgt strategies, Refer to Behavioral Health if appropriate, Refer to Physician if appropriate, Instruct patient to recognize signs & symptoms of depression, Ins truct patient to recog, Other additional plan/intervention Psychosocial - 30-Day Assess Psychosocial - 60-Day Assess Psychosocial - 90-Day Assess Psychosocial - Final Assessmen Patient Health Questionnaire Initial Assessment 1. Little interest or pleasure in doing things: Not at all 2. Feeling down, depressed, or hopeless: Not at all 3. Trouble falling or staying asleep, or sleeping too much: Not at all 4. Feeling tired or having little energy: Several days 5. Poor appetite or overeating: Not at all 6. Feeling bad about yourself -- or that you are a failure or have let yourself or your family down: Not at all 7. Trouble concentrating on things, such as reading the newspaper or watching te levision: Not at all 8. Moving or speaking so slowly that other people could have noticed. Or the opposite - being so fidgety or restless that you have been moving around a lot more than usual: Not at all 9. Thoughts that you would be better off , or of hurting yourself in some way: Not at all How difficult have these problems made it for you to do your work, take care of things at home, or get along with other people?: Not difficult at all Total Score: 1 JULITO-Q SV Test - Statements CAD is a disease of the arteries in the heart: False Examples of risk factors for heart disease: False Angina is chest pain or discomfort: True The benefits of resistance training include: I Don't Know Eating more meat and dairy products: False Anti-platelet medications such as aspirin are important: True The only effective way to manage stress: False An exercise warm-up slowly increases heart rate: I Don't Know Prepared, processed foods usually have high sodium: True Depression is common after a heart attack: I Don't Know The statin medications lower cholesterol: I Don't Know To control blood pressure, lower the amount of sodium: True If someone gets chest discomfort during walking: False Transfats are partially hydrogenated vegetable oils: I Don't Know Sleep apnea that is not treated increases the risk: False To control cholesterol, one should become a vegetarian: False Someone knows if he/she is exercising at the right level: True Diabetes cannot be prevented with exercise & health eating: True Stress is a large risk for heart attack: I Don't Know A diet that can help lower blood pressure is rich in: True - Total Score Total Correct Responses: 12 Self-Efficacy Initial Assessment We would like to know how confident you are in doing certain activities. Please select your confidence level for:: Select your confidence level for the follow ing using the scale 1-10 where 1 is not at all confident and 10 is totally confident. Your score is the average of all 6 responses. Fatigue: How confident are you that you can keep the fatigue caused by your disease from interfering with the things you want to do? Select Number: 7 Physical Discomfort or Pain: How confident are you that you can keep the physical discomfort or pain of your disease from interfering with the things you want to do? Select Number: 9 Emotional Distress: How confident are you that you can keep the emotional distress caused by your disease from interfering with the things you want to do? Select Number: 9 Other Symptoms or Health Problems: How confident are you that you can keep other symptoms or health problems from interfering with the things you want to do? Select Number: 9 Different Tasks and Activities: How confident are you that you can do the different tasks and activities needed to manage your health condition so as to reduce your need to see a doctor? Select Number: 9 Medication: How confident are you that you can do things other than just taking medication to reduce how much your illness affects your everyday life? Select Number: 9 Total Score:: 8 Nutrition Survey - Nutrition Survey Initial Have you lost >10 lbs over the past 2 months without trying?: No Are you following a special diet at home for diabetes, low fat, or low salt?: No Are you interested in meeting with a dietitian for help understanding your diet?: No Do you eat less than 3 meals a day?: Yes Do you eat fatty meats (driscoll, sausage, ribs, etc), fried foods, desserts, large amounts of salad dressings, margarine, butter, or cheese most days?: No Do you have food allergies? [Enter types in comment field]: No Do you eat in restaurants more than 3 times a week?: Yes Do you season food with salt, seasoning salt, or garlic salt?: Yes Do you used canned, boxed, frozen meals, or soups, seasoning packets?: Yes Total Score:: 4
[2022-12-19 10:30] VITALS: BP 116/70; BMI 23.4
== END | disposition home or self-care (01) ==
LOC: CR 09:16
PROVIDERS: PCP Family Medicine; Visit Provider Internal Medicine Cardiovascular Disease
DX: I25.2 Old myocardial infarction (principal); Z95.5 Presence of coronary angioplasty implant and graft

== ENCOUNTER → 2022-12-19 | Outpatient (CLI) | payer MEDICARE, SELFPAY ==
[2022-12-19 10:30] VITALS: BMI 23.4
[2022-12-19 11:20] LABS: Absolute Lymphocyte Count 2.48 X10^3/uL (0.83-4.51); Absolute Neutrophil Count 8.4 X10^3/uL (2.0-7.7); Basophil# 0.05 X10^3/uL; Basophil% 0.4 % (0-1); Eosinophils% 0.8 % (0-5); Hematocrit 41.2 % (37-47); Hemoglobin 13.3 g/dL (12.0-15.0); Lymphocyte # 2.48 X10^3/ul (0.83-4.51); Mean Corp Hgb Conc 32.3 g/dL (32-36); Mean Corpuscular Hgb 30.5 pg (27.0-32.0); Mean Corpuscular Volume 94.5 fL (81-99); Mean Platelet Vol. 9.3 fl (6.2-12.0); Monocyte# 1.08 X10^3/uL; Monocyte% 8.7 % (0-10); NRBC Flagged by Analyzer 0 % (0-5); Neutrophil # 8.43 X10^3/uL (2.7-7.7); Neutrophil % 68.2 % (47-70); Platelet Count 349 K/mm3 (150-450); RBC Distribution Width CV 13.9 % (11.6-14.6); RBC Distribution Width SD 48.2 fl (35.1-43.9); Red Blood Count 4.36 M/mm3 (4.2-5.4); White Blood Count 12.4 K/mm3 (4.4-11.0)
[2022-12-19 11:47] LABS: Anion Gap 6 (5-15); BUN 19 mg/dL (7-18); BUN/Creat Ratio 18.8 RATIO (10-20); Calcium,Total 9.2 mg/dL (8.5-10.1); Chloride 106 mmol/L (98-107); Creatinine, Serum 1.01 mg/dL (0.55-1.02); EST Glomerular Filtration Rate 56 mL/min (>60); Est Glom Filt Rate - Afr Amer 68 mL/min (>60); Glucose 99 mg/dL (74-106); Potassium 3.6 mmol/L (3.5-5.1); Sodium Level 140 mmol/L (136-145)
== END | disposition home or self-care (01) ==
LOC: LAB 10:37
PROVIDERS: PCP Family Medicine; Referring Provider Internal Medicine Cardiovascular Disease; Visit Provider Internal Medicine Cardiovascular Disease
DX: E87.6 Hypokalemia (principal); I25.10 Atherosclerotic heart disease of native coronary artery without angina pectoris; R23.3 Spontaneous ecchymoses
CPT/HCPCS: 36415; 80048; 85025

== ENCOUNTER 2022-12-26 08:00 | Outpatient (RCR) | payer MEDICARE, SELFPAY | END 2022-12-27 23:59 | LOC: CR 08:00 | PROVIDERS: PCP Family Medicine; Visit Provider Internal Medicine Cardiovascular Disease | DX: I25.10 Atherosclerotic heart disease of native coronary artery without angina pectoris (principal); Z95.5 Presence of coronary angioplasty implant and graft | CPT/HCPCS: 93798 ==

== ENCOUNTER 2022-12-28 06:33 | Outpatient (RCR) | payer MEDICARE, SELFPAY ==
[2022-12-19 10:30] VITALS: BMI 23.4
== END 2023-01-24 23:59 ==
LOC: CR 06:33
PROVIDERS: PCP Family Medicine; Visit Provider Internal Medicine Cardiovascular Disease
DX: I25.10 Atherosclerotic heart disease of native coronary artery without angina pectoris (principal); Z95.5 Presence of coronary angioplasty implant and graft
CPT/HCPCS: 93798

== ENCOUNTER → 2023-01-13 | Outpatient (CLI) | payer MEDICARE, SELFPAY ==
[2022-12-19 10:30] VITALS: BMI 23.4
== END | disposition home or self-care (01) ==
LOC: PSN 12:43
PROVIDERS: PCP Family Medicine; Referring Provider Physician Assistant Medical; Visit Provider Physician Assistant Medical
DX: I25.10 Atherosclerotic heart disease of native coronary artery without angina pectoris (principal); I10 Essential (primary) hypertension; Z95.5 Presence of coronary angioplasty implant and graft; I49.9 Cardiac arrhythmia, unspecified; R42 Dizziness and giddiness
CPT/HCPCS: 93225; 93226

== ENCOUNTER → 2023-03-13 | Outpatient (CLI) | payer MEDICARE, SELFPAY ==
[2022-12-19 10:30] VITALS: BMI 23.4
[2023-03-13 12:31] LABS: Hematocrit 40.2 % (37-47); Hemoglobin 13.3 g/dL (12.0-15.0); Mean Corp Hgb Conc 33.1 g/dL (32-36); Mean Corpuscular Hgb 31.1 pg (27.0-32.0); Mean Corpuscular Volume 93.9 fL (81-99); Mean Platelet Vol. 9.3 fl (6.2-12.0); Platelet Count 252 K/mm3 (150-450); RBC Distribution Width CV 12.7 % (11.6-14.6); RBC Distribution Width SD 43.8 fl (35.1-43.9); Red Blood Count 4.28 M/mm3 (4.2-5.4); White Blood Count 7.5 K/mm3 (4.4-11.0)
[2023-03-13 13:24] LABS: Anion Gap 5 (5-15); BUN 21 mg/dL (7-18); BUN/Creat Ratio 23.3 RATIO (10-20); Calcium,Total 8.6 mg/dL (8.5-10.1); Chloride 107 mmol/L (98-107); EST Glomerular Filtration Rate 64 mL/min (>60); Est Glom Filt Rate - Afr Amer 77 mL/min (>60); Glucose 92 mg/dL (74-106); Potassium 3.8 mmol/L (3.5-5.1); Sodium Level 138 mmol/L (136-145); Thyroid Stim Hormone (TSH) 2.85 uIU/mL (0.358-3.74)
== END | disposition home or self-care (01) ==
LOC: LAB 12:01
PROVIDERS: PCP Family Medicine; Referring Provider Physician Assistant Medical; Visit Provider Physician Assistant Medical
DX: R53.83 Other fatigue (principal); I25.10 Atherosclerotic heart disease of native coronary artery without angina pectoris; I49.9 Cardiac arrhythmia, unspecified; R42 Dizziness and giddiness
CPT/HCPCS: 36415; 80048; 84443; 85027

== ENCOUNTER 2023-03-21 03:14 | Emergency (ER) | payer MEDICARE, SELFPAY ==
[2022-12-19 10:30] VITALS: BMI 23.4
[2023-03-21 03:15] VITALS: BP 147/71; PULSE 83; RESP 12; TEMP 36.3; O2SAT 97; BMI 24.9
--- NOTE | 2023-03-21 03:34 | RAD_ITS ---
INDICATION: chest pain EXAMINATION/TECHNIQUE: X-RAY - PA and lateral views of chest COMPARISON: Two-view chest x-ray from 12/08/2022 FINDINGS: LINES/DEVICES: None. LUNGS: Slightly hyperexpanded lungs again noted. No pulmonary edema or focal airspace consolidation. No sizable pleural effusion. No detectable pneumothorax. MEDIASTINUM AND CARDIOVASCULAR STRUCTURES: Heart normal size. Atherosclerotic calcifications along aorta. BONES AND SOFT TISSUES: Skeletal degenerative changes. Surgical clips within abdomen. RAD/Chest PA and Lateral IMPRESSION: COPD and atherosclerotic disease Electronically Signed: Sid Storm MD at 4:29 EDT ,
--- NOTE | 2023-03-21 03:37 | EKG12_ITS ---
Test Reason : PAIN Blood Pressure : / mmHG Vent. Rate : 072 BPM Atrial Rate : 072 BPM P-R Int : 162 ms QRS Dur : 122 ms QT Int : 424 ms P-R-T Axes : 073 -69 049 degrees QTc Int : 464 ms Normal sinus rhythm Left axis deviation Non-specific intra-ventricular conduction delay Minimal voltage criteria for LVH, may be normal variant ( Yasmani product ) Abnormal ECG Confirmed by LUZ DRIVER, AUSTIN ([id number]), loan expeditor CHARO VALDEZ ([id number]) on 03/23/2023 9:12:47 AM Referred By: SUSANNE Confirmed By:AUSTIN ESCOBAR MD
[2023-03-21 03:44] LABS: Absolute Lymphocyte Count 2.75 X10^3/uL (0.83-4.51); Absolute Neutrophil Count 3.2 X10^3/uL (2.0-7.7); Basophil# 0.06 X10^3/uL; Basophil% 0.9 % (0-1); Eosinophils% 2.9 % (0-5); Hematocrit 46.3 % (37-47); Lymphocyte # 2.75 X10^3/ul (0.83-4.51); Lymphocyte % 39.9 % (19-41); Mean Corp Hgb Conc 32.4 g/dL (32-36); Mean Corpuscular Volume 95.7 fL (81-99); Mean Platelet Vol. 9.4 fl (6.2-12.0); Monocyte# 0.64 X10^3/uL; Monocyte% 9.3 % (0-10); NRBC Flagged by Analyzer 0 % (0-5); Neutrophil # 3.22 X10^3/uL (2.7-7.7); Neutrophil % 46.7 % (47-70); Platelet Count 288 K/mm3 (150-450); RBC Distribution Width CV 12.7 % (11.6-14.6); RBC Distribution Width SD 44.7 fl (35.1-43.9); Red Blood Count 4.84 M/mm3 (4.2-5.4); White Blood Count 6.9 K/mm3 (4.4-11.0)
[2023-03-21] MEDS: Ketorolac 15 MG/ML Vial IV (03:45)
[2023-03-21] MEDS: Orphenadrine 60 MG/2 ML Ampul IV (03:45)
[2023-03-21 03:54] LABS: Bacteria 0 SEEN /hpf (None Seen); Color, Urine Yellow (Yellow); Glucose, Dipstick Normal (Normal); Ketone-Dipstick Negative (Negative); Leukocyte Esterase-Dipstick Negative /ul (Negative); Mucous, Urine 0 SEEN /hpf (<or=2+); Nitrite-Dipstick Negative (Negative); Occult Blood-Urine Negative /ul (Negative); Protein-Dipstick Negative (Negative); Red Blood Cells-Urine 0 SEEN /hpf (0-5); Squamous Epithelial Cells - UA 0 SEEN /hpf (5-10); Urine Bilirubin Dipstick Negative (Negative); Urine Clarity Clear (Clear); Urine Urobilinogen Normal (Normal); Urine pH 6.5 (5.0 - 8.0); White Blood Cells 0 SEEN /hpf (0-5)
[2023-03-21 04:03] LABS: Anion Gap 5 (5-15); BUN 24 mg/dL (7-18); BUN/Creat Ratio 24.9 RATIO (10-20); Calcium,Total 9.6 mg/dL (8.5-10.1); Chloride 106 mmol/L (98-107); Creatinine, Serum 0.96 mg/dL (0.55-1.02); EST Glomerular Filtration Rate 59 mL/min (>60); Est Glom Filt Rate - Afr Amer 72 mL/min (>60); Estimated Creatinine Clearance 41.25 ml/min; Glucose 113 mg/dL (74-106); Magnesium 2.7 mg/dL (1.6-2.6); Potassium 3.4 mmol/L (3.5-5.1); Sodium Level 138 mmol/L (136-145); Troponin-I HS 5 pg/mL (3.0-54.0)
--- NOTE | 2023-03-21 04:55 | EDS_ITS ---
HPI History of Present Illness Chief Complaint: Numb/Ting Narrative Narrative: Patient is 82-year-old female with past medical history of hypertension hyperlipidemia and CAD with stent placement in November 2022. She states she went to bed feeling normal and then awoke roughly 1 to 2 hours prior to arrival with some pain in her right arm numbness and tingling in her left and then noticed some pain in her left mid to upper back. She states there is no associated nausea vomiting diaphoresis or shortness of breath. She states the arm pain and numbness resolved quickly but that the back issue has persisted. She states because of her history of previous heart attack she is concerned she may get having heart damage once again and therefore comes in for evaluation. [facility] Medical History Abnormal bruising Dehydration Essential hypertension HLD (hyperlipidemia) Hypokalemia Intractable nausea and vomiting Myocardial infarct Sensorineural hearing loss Unstable angina Vertigo Home Medications aspirin 81 mg chewable tablet 81 mg PO QHS heart health 02/15/14 [History Last Taken 11/29/17] glucosamine sulfate 2KCl 500 mg capsule (Glucosamine Relief) 1,000 mg PO BID supplement 02/15/14 [History Last Taken 11/29/17] multivitamin with folic acid 400 mcg tablet (Thera) 1 tab PO DAILY supplement 02/15/14 [History Last Taken 11/29/17] vitamin E (dl, acetate) 180 mg (400 unit) capsule 400 units PO BID supplement 02/15/14 [History Last Taken 11/29/17] cyanocobalamin (vitamin B-12) 1,000 mcg capsule 1,000 mcg PO DAILY supplement 11/30/17 [History Last Taken 11/29/17] losartan 100 mg tablet 100 mg PO QHS blood pressure 12/08/22 [History Last Taken Unknown] nitroglycerin 0.4 mg sublingual tablet 0.4 mg sublingual Q5M PRN Chest pain #30 tabs 12/10/22 [Rx Last Taken Unknown] MODUCHOL PO/SL BID 12/15/22 [History Last Taken Unknown] amlodipine 5 mg tablet 5 mg PO DAILY blood pressure 01/12/23 [History Last Taken Unknown] calcium citrate 250 mg calcium-vitamin D3 5 mcg (200 unit) tablet 1 tab PO DAILY supplement 01/12/23 [History Last Taken Unknown] hydrochlorothiazide 12.5 mg tablet 12.5 mg PO DAILY 01/12/23 [History Last Taken Unknown] clopidogrel 75 mg tablet 75 mg PO DAILY 02/28/23 [History Last Taken Unknown] ezetimibe 10 mg tablet (Zetia) 10 mg PO DAILY #30 tabs 02/28/23 [Rx Last Taken Unknown] alirocumab 150 mg/mL subcutaneous pen injector (Praluent Pen) 150 mg subcut Q14D pt cannot tolerate statins or Zetia #2 mL 03/07/23 [Rx Last Taken Unknown] Allergy/AdvReac Type Severity Reaction Status Date / Time [id number] Reductase Allergy Severe Pain in Verified 03/21/23 03:20 Inhibitor joints Penicillins Allergy Unknown Verified 03/21/23 03:20 Family History Sister Pacemaker Father CVA (cerebral vascular accident) Surgical History H/O: hysterectomy History of cholecystectomy History of coronary artery stent placement (12/09/22) Social History Smoking Status: Never smoker alcohol intake: never substance use type: does not use caffeine: No ROS ROS ED Constitutional Constitutional ED: Denies chills or fever(s) ENT ENT ED: Denies sore throat Cardiovascular Cardiovascular: Reports chest pain; Denies palpitations or racing heartbeat Respiratory/Chest Respiratory/Chest: Denies cough or dyspnea Gastrointestinal Gastrointestinal: Denies abdominal pain, diarrhea, nausea or vomiting Genitourinary Genitourinary ED: Denies dysuria or hematuria Musculoskeletal Musculoskeletal: Reports back pain; Denies myalgias Integumentary Denies rash Neurologic Neurologic: Reports paresthesias; Denies headache(s) Hematologic/Lymphatic Hematologic/Lymphatic: Denies easy bleeding or easy bruising EXAM Physical Exam Const Vital Signs: 03/21/23 03:15 Temperature 97.4 F L Temperature Source Temporal Pulse Rate 83 Respiratory Rate 12 Blood Pressure 147/71 H Blood Pressure Mean 96 Pulse Ox 97 Oxygen Delivery Method Room Air Positive well nourished and well developed General Appearance ED: well developed HEENT HEENT Narrative: Normocephalic atraumatic Eyes PERRL and EOMs intact bilaterally Neck supple Neck Narrative: Carotid pulses are equal and symmetric Chest Wall palpation of chest normal Chest Narrative: No bony deformity or crepitance Resp normal respiratory effort and clear to auscultation bilaterally Cardio regular rate and regular rhythm Rate: other Other Details: Radial pulses are plus 2 out of 4 bilaterally are equal and symmetric GI normal to inspection, nondistended, normoactive bowel sounds, non-tender, non- distended and no masses GI Narrative: No bone guarding or rigidity. No pulsatile mass or fluid wave Auscultation: normoactive bowel sounds Palpation: soft Back/Spine Back/Spine Narrative: There is reproducible pain with palpation along the angle of the scapula on the left. Patient states this is the same pain she is experiencing. There is no overlying erythema or warmth. No abrasions or ecchymosis. Extremity normal to inspection Extremity Narrative: No asymmetric edema no pitting edema negative Homans' sign bilaterally Neuro oriented x3 and CN's II-XII intact bilaterally Sensorium / Orientation: alert Psych mental status grossly normal Skin no rashes or lesions noted Skin Narrative: No overlying soft tissue changes to suggest trauma or infection MDM MDM MDM Narrative Medical decision making narrative: Patient presented to the ER in no acute distress. She has spontaneous resolution of her reported arm symptoms that were there upon waking and now does have pain in her left mid lateral low back. Differential includes acute coronary syndrome pneumonia pneumothorax the stone pyelonephritis or a musculoskeletal strain. Because of her previous history of CAD requiring stent placement just 4 months ago a cardiac work-up was performed. EKG is normal sinus rhythm chest x-ray reveals no acute lung pathology and initial troponin is normal at 5. There is concern that this could be secondary to a pyelonephritis or kidney stone but urine sample shows no blood going against stone and no signs of infection. Patient's mediastinum is not widened on chest x-ray she has equal and symmetric pulses and the pain is reproducible with palpation going against any type of dissection and indicating this is more muscular in nature. A delta troponin was obtained at the 2-hour raine and shows no elevation from the initial. Therefore at this time with work-up showing no signs of acute coronary syndrome and patient having improvement of symptoms she is otherwise safe for d ischarge History & Record Review Discussion w/independent historian: Patient and Family Lab Data Attestation: I reviewed the patient's lab results. Labs: Laboratory Results - last 24 hr 03/21/23 03/21/23 03/21/23 03:03 03:03 03:48 WBC 6.9 RBC 4.84 Hgb 15.0 Hct 46.3 MCV 95.7 MCH 31.0 MCHC 32.4 RDW Std Deviation 44.7 H RDW Coeff of Lyla 12.7 Plt Count 288 MPV 9.4 Immature Gran % (Auto) 0.300 Neut % (Auto) 46.7 L Lymph % (Auto) 39.9 Love % (Auto) 9.3 Eos % (Auto) 2.9 Baso % (Auto) 0.9 Absolute Neuts (auto) 3.2 Absolute Lymphs (auto) 2.75 Nucleated RBC % 0 Sodium 138 Potassium 3.4 L Chloride 106 Carbon Dioxide 27.0 Anion Gap 5 BUN 24 H Creatinine 0.96 Estim Creat Clear Calc 41.25 Est GFR (MDRD) Af Amer 72 Est GFR (MDRD) Non-Af 59 L BUN/Creatinine Ratio 24.9 H Glucose 113 H Calcium 9.6 Magnesium 2.7 H Troponin I High Sens 5 Urine Color Yellow Urine Clarity Clear Urine pH 6.5 Ur Specific [place] 1.010 Urine Protein Negative Urine Glucose (UA) Normal Urine Ketones Negative Urine Occult Blood Negative Urine Nitrite Negative Urine Bilirubin Negative Urine Urobilinogen Normal Ur Leukocyte Esterase Negative Urine RBC 0 SEEN Urine WBC 0 SEEN Ur Squamous Epith Cells 0 SEEN Urine Bacteria 0 SEEN Urine Mucus 0 SEEN 03/21/23 05:05 WBC RBC Hgb Hct MCV MCH MCHC RDW Std Deviation RDW Coeff of Lyla Plt Count MPV Immature Gran % (Auto) Neut % (Auto) Lymph % (Auto) Love % (Auto) Eos % (Auto) Baso % (Auto) Absolute Neuts (auto) Absolute Lymphs (auto) Nucleated RBC % Sodium Potassium Chloride Carbon Dioxide Anion Gap BUN Creatinine Estim Creat Clear Calc Est GFR (MDRD) Af Amer Est GFR (MDRD) Non-Af BUN/Creatinine Ratio Glucose Calcium Magnesium Troponin I High Sens 6 Urine Color Urine Clarity Urine pH Ur Specific [place] Urine Protein Urine Glucose (UA) Urine Ketones Urine Occult Blood Urine Nitrite Urine Bilirubin Urine Urobilinogen Ur Leukocyte Esterase Urine RBC Urine WBC Ur Squamous Epith Cells Urine Bacteria Urine Mucus Radiography Diagnostic Testing: Clinical Impression(s) from Imaging Studies Chest X-Ray 03/21/23 03:34 IMPRESSION: COPD and atherosclerotic disease Electronically Signed: Raine Storm MD at 4:29 EDT , Chest x-ray as interpreted by the emergency medicine physician reveals no acute infiltrate pneumothorax or pleural effusion Discharge Plan Triage Chief Complaint: Numb/Ting ED Provider: Virgil Bazzi Dx/Rx/DC Orders Clinical Impression: Thoracic myofascial strain, Nonspecific chest pain, Essential hypertension Instructions: ED Chest Pain, Noncardiac, ED Thoracic Spine Strain Prescriptions: No Action amlodipine 5 mg tablet 5 mg PO DAILY hydrochlorothiazide 12.5 mg tablet 12.5 mg PO DAILY clopidogrel 75 mg tablet 75 mg PO DAILY ezetimibe [Zetia] 10 mg tablet 10 mg PO DAILY Qty: 30 11RF aspirin 81 MG tablet,chewable 81 mg PO QHS Label Comments: HEART/BLOOD THINNER vitamin E (dl, acetate) 400 UNITS capsule 400 units PO BID Label Comments: VITAMIN Glucosamine Relief 500 MG capsule 1,000 mg PO BID Label Comments: VITAMIN/HERB multivitamin with folic acid [Thera] 1 TABLET tablet 1 tab PO DAILY Label Comments: VITAMIN calcium citrate-vitamin D3 250 mg-5 mcg (200 unit) tablet 1 tab PO DAILY Label Comments: VITAMIN cyanocobalamin (vitamin B-12) 1,000 MCG capsule 1,000 mcg PO DAILY nitroglycerin 0.4 mg Tablet, Sublingual 0.4 mg sublingual Q5M PRN (Reason: Chest pain) Qty: 30 0RF MODUCHOL PO/SL BID losartan 100 mg tablet 100 mg PO QHS Praluent Pen 150 mg/mL pen injector 150 mg subcut Q14D Qty: 2 11RF Primary Care Provider: Kyara Odonnell Referrals: Kyara Odonnell MD [Primary Care Provider] - Activity Restrictions/Additional Instructions: Your work-up today does not show any signs of heart damage and your physical exam indicates this is most likely musculoskeletal in nature. Heat the area and take [id number] pain medication for symptom control. Continue all of your home medications as previously directed. Return to the ER should you have any further concerns Disposition Disposition: Home, Self Care
[2023-03-21 05:30] LABS: Troponin-I HS 6 pg/mL (3.0-54.0)
[2023-03-21 05:49] VITALS: BP 125/74; PULSE 79; RESP 18; O2SAT 100
== END 2023-03-21 05:50 | disposition home or self-care (01) ==
PROVIDERS: Emergency Provider Emergency Medicine; PCP Family Medicine; Visit Provider Emergency Medicine
DX: R07.9 Chest pain, unspecified (principal); S29.019A Strain of muscle and tendon of unspecified wall of thorax, initial encounter; E78.5 Hyperlipidemia, unspecified; I10 Essential (primary) hypertension; Z95.5 Presence of coronary angioplasty implant and graft; I25.10 Atherosclerotic heart disease of native coronary artery without angina pectoris
CPT/HCPCS: 71046; 80048; 81001; 83735; 84484; 85025; 93005; 96374; 96375; 99285; A4216

== ENCOUNTER 2023-03-24 11:30 | Outpatient (RCR) | payer MEDICARE, SELFPAY ==
[2022-12-19 10:30] VITALS: BMI 23.4
== END 2023-03-26 23:59 ==
LOC: CR 11:30
PROVIDERS: PCP Family Medicine; Visit Provider Internal Medicine Cardiovascular Disease
DX: I25.10 Atherosclerotic heart disease of native coronary artery without angina pectoris (principal); Z95.5 Presence of coronary angioplasty implant and graft
CPT/HCPCS: 93798

== ENCOUNTER 2023-04-26 11:30 | Outpatient (RCR) | payer MEDICARE, SELFPAY ==
[2022-12-19 10:30] VITALS: BMI 23.4
== END 2023-04-26 23:59 ==
LOC: CR 11:30
PROVIDERS: PCP Family Medicine; Referring Provider Internal Medicine Cardiovascular Disease; Visit Provider Internal Medicine Cardiovascular Disease
DX: I25.10 Atherosclerotic heart disease of native coronary artery without angina pectoris (principal); Z95.5 Presence of coronary angioplasty implant and graft
CPT/HCPCS: 93798

== ENCOUNTER → 2023-05-02 | Outpatient (CLI) | payer MEDICARE, SELFPAY ==
[2022-12-19 10:30] VITALS: BMI 23.4
== END | disposition home or self-care (01) ==
LOC: PSN 08:04
PROVIDERS: PCP Family Medicine; Referring Provider Internal Medicine Cardiovascular Disease; Visit Provider Internal Medicine Cardiovascular Disease
DX: R00.0 Tachycardia, unspecified (principal); R00.2 Palpitations; R53.83 Other fatigue; R42 Dizziness and giddiness; I25.10 Atherosclerotic heart disease of native coronary artery without angina pectoris
CPT/HCPCS: 93225; 93226

== ENCOUNTER 2023-05-19 11:30 | Outpatient (RCR) | payer MEDICARE, SELFPAY ==
[2022-12-19 10:30] VITALS: BMI 23.4
== END 2023-05-26 23:59 ==
LOC: CR 11:30
PROVIDERS: PCP Family Medicine; Referring Provider Internal Medicine Cardiovascular Disease; Visit Provider Internal Medicine Cardiovascular Disease
DX: I25.10 Atherosclerotic heart disease of native coronary artery without angina pectoris (principal); Z95.5 Presence of coronary angioplasty implant and graft
CPT/HCPCS: 93798

== ENCOUNTER → 2023-06-30 | Outpatient (CLI) | payer MEDICARE, SELFPAY ==
[2022-12-19 10:30] VITALS: BMI 23.4
--- NOTE | 2023-06-30 08:26 | BI_ITS ---
MAMMOGRAPHY - BILATERAL SCREENING REASON FOR EXAM: Female, 82 years old. Routine annual screening examination. PERTINENT HISTORY: Aunt with breast cancer. TECHNIQUE: Digital bilateral breast gregory (3D mammographic acquisition) in the CC and MLO projections. 2-D mediolateral oblique (MLO) and craniocaudad (CC) views of both breasts were obtained. CAD: Full Field Digital Mammography with Computer Added Detection was performed. COMPARISON: Comparison is made with prior study June 28, 2022 and June 22, 2021. FINDINGS: Breast Composition: The breasts are heterogeneously dense, which may obscure small masses. There are no dominant masses or suspicious calcifications. Stable scattered bilateral calcifications. No focal clusters seen. No other significant abnormalities are identified. There has been no significant change since the prior study. BI/SCRN MAMM (CAD)W/GREGORY BILAT IMPRESSION: Stable bilateral screening mammogram. Yearly follow-up mammogram recommended. (A) ASSESSMENT CATEGORY: BIRADS Category 2: Benign. A letter regarding these results will be sent to the patient by the facility within 30 days. Approximately 10% of breast cancers are not detected by mammography. A normal mammogram should not delay biopsy of a clinically suspicious abnormality. [id number] Electronically Signed: Aren Meadows MD at 10:26 EDT ,
== END | disposition home or self-care (01) ==
LOC: OPBI 08:25
PROVIDERS: PCP Family Medicine; Referring Provider Family Medicine; Visit Provider Family Medicine
DX: Z12.31 Encounter for screening mammogram for malignant neoplasm of breast (principal); Z80.3 Family history of malignant neoplasm of breast
CPT/HCPCS: 77063; 77067

== ENCOUNTER → 2023-07-25 | Outpatient (CLI) | payer MEDICARE, SELFPAY ==
[2022-12-19 10:30] VITALS: BMI 23.4
[2023-07-25 15:55] LABS: AST(SGOT) 22 U/L (15-37); Alanine Aminotransfer ALT/SGPT 24 U/L (13-56); Cholesterol 200 mg/dL (200); High Density Lipoprotein 41 mg/dL; Triglycerides 357 mg/dL; Very Low Density Lipoprotein 71 mg/dL (5-40)
== END | disposition home or self-care (01) ==
LOC: MFPLAB 13:46
PROVIDERS: PCP Family Medicine; Visit Provider Family Medicine
DX: I10 Essential (primary) hypertension (principal)
CPT/HCPCS: 36415; 80061; 84450; 84460

== ENCOUNTER → 2023-10-03 | Outpatient (CLI) | payer MEDICARE, SELFPAY ==
[2022-12-19 10:30] VITALS: BMI 23.4
--- NOTE | 2023-10-03 10:25 | RAD_ITS ---
EXAM: XR ABDOMEN, 2 VIEWS CLINICAL INDICATION: LUQ pain TECHNIQUE: Frontal view of the abdomen/pelvis with upright view of the abdomen. COMPARISON: No relevant prior studies available. FINDINGS: LOWER THORAX: No acute pathology. INTRAPERITONEAL SPACE: No free air. GASTROINTESTINAL TRACT: No significant abnormality. Non-obstructive. No bowel or stomach distention. ORGANS: Status post cholecystectomy. No organomegaly. No abnormal calcifications. BONES/JOINTS: Degenerative changes in the lower lumbar spine and throughout the pelvis and hips. SOFT TISSUES: No acute pathology. RAD/Abd Inc Decub and/or Erect IMPRESSION: No acute findings in the abdomen or pelvis. Electronically Signed: Brady Gomez DO at 20:33 EST ,
== END | disposition home or self-care (01) ==
LOC: MTRAD 10:25
PROVIDERS: PCP Family Medicine; Referring Provider Family Medicine; Visit Provider Family Medicine
DX: R10.12 Left upper quadrant pain (principal)
CPT/HCPCS: 74019

== ENCOUNTER → 2023-12-08 | Outpatient (CLI) | payer MEDICARE, SELFPAY ==
[2022-12-19 10:30] VITALS: BMI 23.4
--- NOTE | 2023-12-08 11:00 | RAD_ITS ---
STUDY: X-RAY - LEFT TIBIA AND FIBULA REASON FOR EXAM: Female, 83 years old. Left alicea injury TECHNIQUE: 3 view(s) of the tibia and fibula were obtained. COMPARISON: None. FINDINGS: Normal visualized tibia. Normal visualized fibula. The soft tissue structures are unremarkable. RAD/Tibia & Fibula 2 Views IMPRESSION: Normal x-ray examination of the tibia and fibula. Electronically Signed: Lazaro Brown MD at 17:24 EST ,
--- OUTSIDE RECORDS SUMMARY | 2023-12-08 11:27 | XMS RPT_ITS | CCD ---
Author Name Unknown Address [address] [place] [address] Organization [facility] Care Team Providers Care Mosquito Sprayer Name Role Phone ELIZABETAUBREE CRAWFORD Unavailable Unavailable JANEE, MILANTRACIE Kayla Unavailable Unavailable Allergies Allergy Classification Reported Allergen(s) Allergy Type Date of Onset Reaction(s) Facility (1 source) penicillAMINE; Translations: [PENICILLAMINE] Drug Allergy 08-22-2005 [facility] Repository Results Test Name Value Interpretation Reference Range Facil ity Encounters Encounter Date Encounter Type Care Provider Facility Start: 01-24-2018 Ambulatory A[facility] Summary Purpose Family History No Family History Records Found Advance Directives No Advanced Directives Records Found Additional Source Comments INFORMATION SOURCE (unrecogn ized section and content) FOR RECORDS PERTAINING TO PATIENTS WHO ARE OR HAVE BEEN ENROLLED IN A CHEMICAL DEPENDENCY/SUBSTANCEABUSE PROGRAM, SOME INFORMATION MAY BE OMITTED. This clinical summary was aggregated from multiple sources. Caution should be exercised in using it in the provision of clinical care. This summary normalizes information from multiple sources, and as a consequence, information in this document may materially change the coding, format and clinical context of patient data. In addition, data may be omitted in some cases. CLINICAL DECISIONS SHOULD BE BASED ON THE PRIMARY CLINICAL RECORDS. [employer] provides no warranty or guarantee of the accuracy or completeness of information in this document.
== END | disposition home or self-care (01) ==
LOC: MTRAD 10:58
PROVIDERS: PCP Family Medicine; Referring Provider Family Medicine; Visit Provider Family Medicine
DX: M79.605 Pain in left leg (principal)
CPT/HCPCS: 73590

== ENCOUNTER → 2024-01-30 | Outpatient (CLI) | payer MEDICARE, SELFPAY ==
[2022-12-19 10:30] VITALS: BMI 23.4
--- OUTSIDE RECORDS SUMMARY | 2024-01-30 12:11 | XMS RPT_ITS | CCD ---
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 Summary Purpose Family History No Family History [...] BE BASED ON THE PRIMARY CLINICAL RECORDS. [employer] provides no warranty or guarantee of the accuracy or completeness of information in this document.
[2024-01-30 15:25] LABS: Absolute Lymphocyte Count 1.74 X10^3/uL (0.83-4.51); Basophil# 0.05 X10^3/uL; Basophil% 0.9 % (0-1); Eosinophil# 0.19 X10^3/uL; Eosinophils% 3.4 % (0-5); Hemoglobin 12.7 g/dL (12.0-15.0); Lymphocyte # 1.74 X10^3/ul (0.83-4.51); Lymphocyte % 30.9 % (19-41); Mean Corp Hgb Conc 32.6 g/dL (32-36); Mean Corpuscular Hgb 30.8 pg (27.0-32.0); Mean Corpuscular Volume 94.7 fL (81-99); Mean Platelet Vol. 9.8 fl (6.2-12.0); Monocyte# 0.65 X10^3/uL; Monocyte% 11.5 % (0-10); NRBC Flagged by Analyzer 0 % (0-5); Neutrophil # 2.99 X10^3/uL (2.7-7.7); Neutrophil % 53.1 % (47-70); Platelet Count 255 K/mm3 (150-450); RBC Distribution Width CV 13.1 % (11.6-14.6); RBC Distribution Width SD 45.8 fl (35.1-43.9); Red Blood Count 4.12 M/mm3 (4.2-5.4); White Blood Count 5.6 K/mm3 (4.4-11.0)
[2024-01-30 15:35] LABS: Protein, Urine (Random) 9.5 mg/dL (<11.9); Protein:Creat Ratio 132 mg/g CRE (0-200)
[2024-01-30 15:42] LABS: Vitamin D,25 Hydroxy 48.2 ng/mL
[2024-01-30 15:57] LABS: AST(SGOT) 23 U/L (15-37); Alanine Aminotransfer ALT/SGPT 21 U/L (13-56); Anion Gap 8 (5-15); BUN 17 mg/dL (7-18); BUN/Creat Ratio 18.9 RATIO (10-20); Chloride 107 mmol/L (98-107); Cholesterol 144 mg/dL (200); EST Glomerular Filtration Rate 64 mL/min (>60); Est Glom Filt Rate - Afr Amer 77 mL/min (>60); Glucose 91 mg/dL (74-106); High Density Lipoprotein 48 mg/dL; Potassium 3.3 mmol/L (3.5-5.1); Sodium Level 142 mmol/L (136-145); Triglycerides 160 mg/dL; Very Low Density Lipoprotein 32 mg/dL (5-40)
== END | disposition home or self-care (01) ==
LOC: MFPLAB 11:48
PROVIDERS: PCP Family Medicine; Visit Provider Family Medicine
DX: E55.9 Vitamin D deficiency, unspecified (principal); I10 Essential (primary) hypertension; T14.8XXA Other injury of unspecified body region, initial encounter; E78.5 Hyperlipidemia, unspecified
CPT/HCPCS: 36415; 80048; 80061; 82306; 82570; 84156; 84450; 84460; 85025

== ENCOUNTER → 2024-03-06 | Outpatient (CLI) | payer MEDICARE, SELFPAY ==
[2022-12-19 10:30] VITALS: BMI 23.4
[2024-03-06 18:16] LABS: Vitamin B12 > 2000 pg/mL (211-911)
[2024-03-06 18:49] LABS: Ferritin 153 ng/mL (8-252); Iron 59 ug/dL (50-170); Iron Binding Capacity,Total 309 ug/dL (250-450); PERCENT IRON SATURATION 19.1 % (15.0-55.0); Potassium 3.6 mmol/L (3.5-5.1)
== END | disposition home or self-care (01) ==
LOC: MFPLAB 16:07
PROVIDERS: PCP Family Medicine; Visit Provider Family Medicine
DX: R53.83 Other fatigue (principal); E87.6 Hypokalemia
CPT/HCPCS: 36415; 82607; 82728; 82746; 83540; 83550; 84132

== ENCOUNTER → 2024-03-14 | Outpatient (CLI) | payer MEDICARE, SELFPAY ==
[2022-12-19 10:30] VITALS: BMI 23.4
[2024-03-14 09:36] LABS: Potassium 4.2 mmol/L (3.5-5.1)
== END | disposition home or self-care (01) ==
LOC: LAB 07:45
PROVIDERS: PCP Family Medicine; Visit Provider Family Medicine
DX: E87.6 Hypokalemia (principal)
CPT/HCPCS: 36415; 84132

== ENCOUNTER → 2024-06-14 | Outpatient (CLI) | payer MEDICARE, SELFPAY ==
[2022-12-19 10:30] VITALS: BMI 23.4
--- NOTE | 2024-06-14 13:55 | RAD_ITS ---
STUDY: X-RAY - CERVICAL SPINE REASON FOR EXAM: Female, 83 years old. Numbness in hand, and neck pain TECHNIQUE: 5 view(s) of the cervical spine were obtained. COMPARISON: None FINDINGS: Normal anterior atlantoaxial articulation. Normal odontoid process. Normal cervical lordosis. There is multi-level endplate spondylosis. There is multi-level degenerative disc disease with multilevel disc space narrowing. Normal visualized intervertebral neuroforamina. The soft tissue structures are unremarkable. RAD/Cerv Spine 4 or 5 Views IMPRESSION: Moderate degenerative disc disease. MRI may be useful. Electronically Signed: Elijah Bertrand MD at 17:58 EDT ,
== END | disposition home or self-care (01) ==
LOC: MTRAD 13:55
PROVIDERS: PCP Family Medicine; Referring Provider Family Medicine; Visit Provider Family Medicine
DX: R20.0 Anesthesia of skin (principal); R20.2 Paresthesia of skin
CPT/HCPCS: 72050

== ENCOUNTER → 2024-07-01 | Outpatient (CLI) | payer MEDICARE, SELFPAY ==
[2022-12-19 10:30] VITALS: BMI 23.4
--- NOTE | 2024-07-01 07:53 | BI_ITS ---
MAMMOGRAPHY - BILATERAL SCREENING REASON FOR EXAM: Female, 83 years old. Routine annual screening examination. PERTINENT HISTORY: Aunt with breast cancer. TECHNIQUE: Digital bilateral breast gregory (3D mammographic acquisition) in the CC and MLO projections. 2-D mediolateral oblique (MLO) and craniocaudad (CC) views of both breasts were obtained. CAD: Full Field Digital Mammography with Computer Added Detection was performed. COMPARISON: Comparison is made with prior study June 30, 2023 and June 28, 2022. FINDINGS: Breast Composition: The breasts are heterogeneously dense, which may obscure small masses. There are no dominant masses or suspicious calcifications. Stable scattered bilateral calcifications. No focal cluster seen. No other significant abnormalities are identified. There has been no significant change since the prior study. BI/SCRN MAMM (CAD)W/GREGORY BILAT IMPRESSION: Stable bilateral screening mammogram. Yearly follow-up mammogram recommended. (A) ASSESSMENT CATEGORY: BIRADS Category 2: Benign. A letter regarding these results will be sent to the patient by the facility within 30 days. Approximately 10% of breast cancers are not detected by mammography. A normal mammogram should not delay biopsy of a clinically suspicious abnormality. [id number] Electronically Signed: Aren Meadows MD at 9:09 EDT ,
== END | disposition home or self-care (01) ==
LOC: OPBI 07:52
PROVIDERS: PCP Family Medicine; Referring Provider Family Medicine; Visit Provider Family Medicine
DX: Z12.31 Encounter for screening mammogram for malignant neoplasm of breast (principal); Z80.3 Family history of malignant neoplasm of breast
CPT/HCPCS: 77063; 77067

== ENCOUNTER → 2024-07-30 | Outpatient (CLI) | payer MEDICARE, SELFPAY ==
[2022-12-19 10:30] VITALS: BMI 23.4
[2024-07-30 13:02] LABS: Anion Gap 8 (5-15); BUN 19 mg/dL (7-18); BUN/Creat Ratio 20.1 RATIO (10-20); Calcium,Total 9.1 mg/dL (8.5-10.1); Chloride 106 mmol/L (98-107); Creatinine, Serum 0.94 mg/dL (0.55-1.02); EST Glomerular Filtration Rate 60 mL/min (>60); Est Glom Filt Rate - Afr Amer 73 mL/min (>60); Glucose 98 mg/dL (74-106); Potassium 3.6 mmol/L (3.5-5.1); Sodium Level 140 mmol/L (136-145)
== END | disposition home or self-care (01) ==
LOC: MFPLAB 10:48
PROVIDERS: PCP Family Medicine; Visit Provider Family Medicine
DX: I10 Essential (primary) hypertension (principal)
CPT/HCPCS: 36415; 80048

== ENCOUNTER → 2025-02-25 | Outpatient (CLI) | payer MEDICARE, SELFPAY ==
[2022-12-19 10:30] VITALS: BMI 23.4
--- NOTE | 2025-02-25 13:36 | RAD_ITS ---
PROCEDURE: CHEST PA AND LATERAL 02/25/2025 REASON FOR EXAM: PRODUCTIVE COUGH TECHNIQUE: Frontal and lateral views of the chest. PA and lateral COMPARISON: 03/21/2023 FINDINGS: The lungs appear clear. Pulmonary vascularity appears within limits. No pleural effusion. The cardiac and mediastinal contours appear within limits. Status post cholecystectomy. Atherosclerotic changes at the thoracic aorta and spondylosis/discogenic change thoracic spine again noted. RAD/Chest PA and Lateral IMPRESSION: No evidence of acute disease. Reading Location: [id number]
== END | disposition home or self-care (01) ==
LOC: MTRAD 13:35
PROVIDERS: PCP Family Medicine; Referring Provider Family Medicine; Visit Provider Family Medicine
DX: R05.8 Other specified cough (principal)
CPT/HCPCS: 71046

== ENCOUNTER → 2025-03-27 | Outpatient (CLI) | payer MEDICARE, SELFPAY ==
[2022-12-19 10:30] VITALS: BMI 23.4
[2025-03-27 13:41] LABS: ALB/GLOB Ratio 1.7 RATIO (0.9-2.4); AST(SGOT) 27 U/L (<=31); Alanine Aminotransfer ALT/SGPT 15 U/L (<=34); Albumin, Serum 4.3 g/dL (3.4-4.8); Alkaline Phosphatase 68 U/L (35-104); Anion Gap 13 (5-15); BUN 17 mg/dL (4-19); BUN/Creat Ratio 17.9 RATIO (10-20); Calcium,Total 9.2 mg/dL (7.6-11.0); Carbon Dioxide 23.2 mmol/L (21.0-32.0); Chloride 105 mmol/L (98-108); Creatinine, Serum 0.96 mg/dL (0.70-1.20); EST Glomerular Filtration Rate 59 (>60); Globulin 2.6 g/dL (2.2-4.2); Glucose 103 mg/dL (70-99); Magnesium 2.3 mg/dL (1.5-2.2); Potassium 3.7 mmol/L (3.3-5.1); Protein, Total 6.8 g/dL (5.9-8.4); Sodium Level 141 mmol/L (133-145); Total Bilirubin 0.88 mg/dL (0.00-1.30)
== END | disposition home or self-care (01) ==
LOC: LAB 10:13
PROVIDERS: PCP Family Medicine; Referring Provider Physician Assistant Medical; Visit Provider Physician Assistant Medical
DX: R00.0 Tachycardia, unspecified (principal)
CPT/HCPCS: 36415; 80053; 83735; 84443

== ENCOUNTER → 2025-05-07 | Outpatient (CLI) | payer MEDICARE, SELFPAY ==
[2022-12-19 10:30] VITALS: BMI 23.4
--- OUTSIDE RECORDS SUMMARY | 2025-05-07 09:20 | XMS RPT_ITS | CCD ---
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 Kyara Odonnell Primary Care Provider Dr. Tin Walters Emergency Provider Dr. Susanna Cabrera Admit Provider Dr. Susanna Cabrera Other Provider Dr. Raya Boo Other Provider Dr. Mukund Dalton Other Provider Dr. Mustapha Clement Attending Provider Dr. Mukund Dalton Attending Provider Dr. Kyara Odonnell Referring Provider Dr. Kyara Odonnell Primary Care Provider Dr. Collin Eddy Attending Provider Dr. Collin Eddy Referring Provider Maxine GODFREY, PA Debra Balbuena Attending Provider Dr. Kyara Odonnell Primary Care Provider Dr. Collin Eddy Attending Provider Dr. Collin Eddy Referring Provider Dr. Tin Walters Emergency Provider [phone] Susanna Cab[address] Provider Dr. Susanna Cabrera Other Provider Dr. Raya Boo Other Provider Dr. Mukund Dalton Other Provider Dr. Mustapha Clement Attending Provider Dr. Mukund Dalton Attending Provider Dr. Kyara Odonnell Referring Provider EPIFANIO Esparza Attending Provider Dr. Kyara Odonnell Primary Care Provider Dr. Kyara Odonnell Referring Provider Dr. Kyara Odonnell Primary Care Provider Dr. Kyara Odonnell Referring Provider EPIFANIO Esparza Attending Provider Dr. Kyara Odonnell MD Primary Care Provider Dr. Kyara Odonnell MD Referring Provider Debra Esparza Attending Provider Joe Merino MD Primary Care Provider Joe Merino MD Attending Provider Joe Merino MD Referring Provider Debra Esparza Referring Provider Jolliff, Kyara S Primary Care Unavailable Debra Esparza Attending Unavail able Jolliff, Kyara S Primary Care Unavailable Jolliff, Kyara S Referring Unavailable Debra Esparza Attending Unavail able Angelique, Chalon Primary Care Unavailable Wunning Lazaro Referring Unavailable Stevan, Lazaro Attending Unavailable Angelique, Chalon Primary Care Unavailable Debra Esparza Attending Unavail able Debra Esparza Referring Unavail able Angelique, Joe Attending Unavailable Angelique, Chalon Primary Care Unavailable Angelique, Chalon Referring Unavailable Jolliff, Kyara S Primary Care Unavailable Jolliff, Kyara S Attending Unavailable Angelique, Chalon Attending Unavailable Jolliff, Kyara S Primary Care Unavailable Angelique, Chalon Referring Unavailable Angelique, Chalon Attending Unavailable Angelique, Chalon Referring Unavailable Jolliff, Kyara S Primary Care Unavailable Angelique, Senaon Referring Unavailable Angelique, Joe Primary Care Unavailable Debra Esparza Attending Unavail able Jolliff, Kyara S Primary Care Unavailable Jolliff, Kyara S Referring Unavailable Debra Esparza Attending Unavail able Jarrett Kevin Attending Unavailable Jolliff, Kyara S Primary Care Unavailable Jolliff, Kyara S Referring Unavailable Jarrett Kevin Attending Unavailable Jolliff, Kyara S Primary Care Unavailable Jolliff, Kyara S Referring Unavailable Allergies Allergy Classification Reported Allergen(s) Allergy Type Date of Onset Reaction(s) Facility (1 source) penicillAMINE; Translations: [PENICILLAMINE] Drug Allergy 5 [facility] Repository (20 sources) Penicillins Allergy to substance [address] [facility] (20 sources) [place]-Rsp-Eul Reductase Inhibitor Allergy to substance [address] [facility] Comment on above: pt gets generalized severe pain (1 source) Metoprolol Drug Allergy [address] [facility] Comment on above: dizziness (1 source) Metoprolol Drug Allergy 5 [facility] Repository (1 source) Penicillins Drug allergy (disorder) 5 [facility] Repository (1 source) Uwjvlxh-Fgb-Qqq Reductase Inhibitor Drug allergy (disorder) 5 [facility] Repository Medications Current Medications Medication Drug Class(es) Dates Sig (Normalized) Sig (Original) amLODIPine 2.5 mg oral tablet (20 sources) Dihydropyridine Calcium Channel Shereen Start: 06-19-2024 End: 12-18-2024 take 1 tablet by mouth once daily Amlodipine 2.5 mg tablet Active 2.5 mg PO DAILY December 18, 2024 3:24pm Start: 01-12-2023 End: 06-19-2024 take 1 tablet by mouth once daily Amlodipine 5 mg tablet Discontinued 5 mg PO DAILY November 30, 2023 12:54pm June 19, 2024 2:49pm Start: 12-08-2022 End: 01-12-2023 take 2 tablets by mouth once daily Amlodipine 5 mg tablet Discontinued 10 mg PO DAILY December 19, 2022 11:26am January 12, 2023 3:21pm Start: 12-08-2022 End: 01-12-2023 take 10 mg by mouth once daily Amlodipine Discontinued 10 MG PO DAILY December 19, 2022 11:26am January 12, 2023 3:21pm Start: 12-08-2022 End: 12-08-2022 take 1 tablet by mouth once daily Amlodipine 5 mg tablet Discontinued 5 mg PO DAILY December 08, 2022 1:00am December 08, 2022 8:03pm aspirin 81 mg chewable tablet (20 sources) Platelet Aggregation Inhibitor, Nonsteroidal Anti-inflammatory Drug Start: 02-15-2014 take 1 tablet by mouth at bedtime Aspirin 81 MG tablet,chewable Active 81 mg PO AT BEDTIME February 15, 2014 12:00am biotin 5 mg disintegrating oral tablet (1 source) Start: 12-08-2022 take 40303 ug by mouth once daily Biotin Active 25620 MCG PO DAILY December 08, 2022 12:00am calcium carbonate 1500 mg oral tablet (2 sources) Start: 06-19-2024 take 1 tablet by mouth once daily Calcium Carbonate (Calcium 600) 600 mg calcium (1,500 mg) tablet Active 600 mg PO DAILY June 19, 2024 12:00am cholecalciferol 0.025 mg oral tablet (2 sources) Vitamin D Start: 06-19-2024 take 1 tablet by mouth once daily Cholecalciferol (Vitamin D3) 25 mcg (1,000 unit) tablet Active 25 ug PO DAILY June 19, 2024 12:00am Coffee Xt-Phosphatidyl Serine (Neuriva Original) 100-100 mg capsule (1 source) Start: 03-27-2025 Coffee Xt-Phosphatidyl Serine (Neuriva Original) 100-100 mg capsule Active NMA PO March 27, 2025 12:00am Collagen (2 sources) Start: 06-19-2024 take 1000 mg by mouth twice daily collagen Active 1000 mg PO TWICE A DAY June 19, 2024 12:00am Stephanie Oqtg-Bqszzkkz-Jqhgf enic Ac (Arnold Oil) 1,000 MG capsule (2 sources) Start: 02-15-2014 take 1 capsule by mouth twice daily before mealtime Stephanie Xomb-Uqepfujm-Alnqf enic Ac (Arnold Oil) 1,000 MG capsule Active 1000 MG PO TWICE A DAY February 14, 2014 11:00pm Start: 02-15-2014 take 1 capsule by mo [facility] twice daily before mealtime Stephanie Iibh-Tqrsuxlw-Sllmfimma Ac (Arnold Oil) 1,000 MG capsule Active 1000 MG PO TWICE A DAY February 15, 2014 12:00am Flaxseed Oil-Mcdermitt 3,6,9 (2 sources) Start: 02-15-2014 Flaxseed Oil-O jesus 3,6,9 Active 1 EACH PO TWICE A DAY February 14, 2014 11:00pm Start: 02-15-2014 Flaxseed Oil-O jesus 3,6,9 Active 1 EACH PO TWICE A DAY February 15, 2014 12:00am glucosamine sulfate 500 mg oral capsule (20 sources) Start: 02-15-2014 Glucosamine Jordan lfate 2kcl (Glucosamine Relief) 500 MG capsule Active 1000 mg PO TWICE A DAY February 15, 2014 12:00am LORazepam 0.5 mg oral tablet (1 source) Benzodiazepine Start: 11-30-2017 take 0.5 mg by mouth three times daily as needed Lorazepam Active 0.5 MG PO 3 TIMES DAILY NEEDED November 30, 2017 1:00am Multivitamin With Folic Acid (Thera) 1 TABLET tablet (20 sources) Start: 02-15-2014 take 1 tablet by mouth once daily Multivitamin With Folic Acid (Thera) 1 TABLET tablet Active 1 {tbl} PO DAILY February 15, 2014 12:00am Start: 02-15-2014 take 1 tablet by lio once daily Multivitamin With Folic Acid (Thera) 1 TABLET tablet Active 1 TABLET PO DAILY February 14, 2014 11:00pm Start: 02-15-2014 take 1 tablet by lio once daily Multivitamin With Folic Acid (Thera) 1 TABLET tablet Active 1 TABLET PO DAILY February 15, 2014 12:00am 24 hr niacin 500 mg extended release oral tablet (1 source) Nicotinic Acid Start: 02-15-2014 take 500 mg by mouth twice daily Niacin Active 500 MG PO TWICE A DAY February 15, 2014 12:00am nitroglycerin 0.4 mg sublingual tablet (20 sources) Nitrate Vasodilator Start: 12-10-2022 Nitroglycerin 0.4 mg Tablet, Sublingual Active 0.4 mg SL Q5M as needed for Chest pain December 10, 2022 1:00am Start: 12-10-2022 Nitroglycerin Active 0.4 MG SL Q5M December 10, 2022 1:00am ondansetron 4 mg disintegrating oral tablet (1 source) Serotonin-3 Receptor Antagonist Start: 12-09-2016 take 4 mg by mouth every eight hours as needed Ondansetron Active 4 MG PO EVERY 8 HOURS NEEDED December 09, 2016 1:00am vitamin e 450 mg oral capsule (20 sources) Start: 06-19-2024 take 1 capsule by mouth once daily Vitamin E 670 mg (1,000 unit) capsule Active 670 mg PO DAILY June 19, 2024 12:00am Start: 02-15-2014 End: 06-19-2024 Vitamin E (Dl, Acetate) 400 UNITS capsule Discontinued 400 U PO TWICE A DAY February 15, 2014 12:00am June 19, 2024 2:25pm Completed/Discontinued Medications Medication Drug Class(es) Dates Sig (Normalized) Sig (Original) 1 ml alirocumab 150 mg/ml auto-injector (14 sources) PCSK9 Inhibitor Start: 03-07-2023 End: 06-19-2024 Alirocumab (Praluent Pen) 150 mg/mL pen injector Discontinued 150 mg SC Q14D March 07, 2023 12:00am June 19, 2024 2:26pm calcium citrate 1190 mg / cholecalciferol 0.005 mg oral tablet (20 sources) Vitamin D Start: 02-15-2014 End: 06-19-2024 Calcium Citrate-Vitamin D3 250 mg-5 mcg (200 unit) tablet Discontinued 1 {tbl} PO DAILY January 12, 2023 3:18pm June 19, 2024 2:21pm Start: 02-15-2014 End: 01-12-2023 take 1 tablet by mouth once daily Calcium Citrate-Vitamin D3 Active 1 TABLET PO DAILY January 12, 2023 3:18pm Start: 02-15-2014 Calcium Citrat e-Vitamin D3 Active 1 EACH PO TWICE A DAY February 14, 2014 11:00pm clopidogrel 75 mg oral tablet (20 sources) P2Y12 Platelet Inhibitor Start: 12-16-2022 End: 12-18-2024 take 1 tablet by mouth once daily Clopidogrel 75 mg tablet Discontinued 75 mg PO DAILY December 05, 2023 11:56am December 18, 2024 3:25pm dexamethasone 6 mg oral tablet (2 sources) Corticosteroid Start: 09-06-2024 End: 12-18-2024 take 1 tablet by mouth once daily Dexamethasone 6 mg tablet Discontinued 6 mg PO DAILY September 06, 2024 12:00am December 18, 2024 2:56pm Mcdermitt 9-Aqo-Owx-Fish Oil (2 sources) Start: 06-19-2024 End: 03-27-2025 Mcdermitt 9-Fwk-Vnm-Fish Oil (Fish Oil) 300-1,000 mg capsule Discontinued 1 NMA PO DAILY June 19, 2024 12:00am March 27, 2025 9:30am Start: 06-19-2024 Mcdermitt 3-Dha-Ep a-Fish Oil (Fish Oil) 300-1,000 mg capsule Active 1 NMA PO DAILY June 19, 2024 12:00am ezetimibe 10 mg oral tablet (14 sources) Dietary Cholesterol Absorption Inhibitor Start: 02-28-2023 End: 06-19-2024 take 1 tablet by mouth once daily Ezetimibe (Zetia) 10 mg tablet Discontinued 10 mg PO DAILY February 28, 2023 12:00am June 19, 2024 2:26pm folate (2 sources) Start: 06-19-2024 End: 03-27-2025 take 1000 mg by mouth once daily folate Discontinued 1000 mg PO DAILY June 19, 2024 12:00am March 27, 2025 9:30am Start: 06-19-2024 take 1000 mg by mouth once jocelyn ly folate Active 1000 mg PO DAILY June 19, 2024 12:00am hydroCHLOROthiazide 12.5 mg oral tablet (20 sources) Thiazide Diuretic Start: 01-12-2023 End: 03-27-2025 take 1 tablet by mouth once daily Hydrochlorothiazide 12.5 mg tablet Discontinued 12.5 mg PO DAILY December 05, 2023 11:56am December 18, 2024 3:25pm Start: 12-03-2017 End: 01-12-2023 Hydrochlorothiazide 25 MG ta blet Discontinued 12.5 mg PO DAILY December 03, 2017 1:00am January 12, 2023 3:21pm Start: 12-03-2017 End: 01-12-2023 take 12.5 mg by mouth once daily Hydrochlorothiazide Discontinued 12.5 MG PO DAILY December 03, 2017 1:00am January 12, 2023 3:21pm losartan potassium 100 mg oral tablet (20 sources) Angiotensin 2 Receptor Shereen Start: 12-08-2022 End: 12-05-2023 take 1 tablet by mouth at bedtime Losartan 100 mg tablet Discontinued 100 mg PO AT BEDTIME December 08, 2022 11:11am December 05, 2023 11:56am Start: 11-30-2017 End: 12-08-2022 Losartan 50 MG tablet Discon tinued 1 {tbl} PO DAILY November 30, 2017 1:00am December 08, 2022 11:10am 24 hr metoprolol succinate 25 mg extended release oral tablet (20 sources) beta-Adrenergic Shereen Start: 12-10-2022 End: 02-28-2023 take 1 tablet by mouth once daily Metoprolol Succinate (Toprol Xl) 25 mg tablet extended release 24 hr Discontinued 25 mg PO DAILY December 19, 2022 11:27am February 28, 2023 1:28pm On Hold: dizziness MODUCHOL (20 sources) Start: 06-19-2024 End: 12-18-2024 take 2.5 mg by mouth twice daily MODUCHOL Discontinued 2.5 mg SL/PO TWICE A DAY June 19, 2024 2:22pm December 18, 2024 2:57pm Start: 12-15-2022 End: 06-19-2024 MODUCHOL Discontinued SL/PO TWICE A DAY December 15, 2022 1:00am June 19, 2024 2:26pm Start: 12-15-2022 MODUCHOL Activ e SL/PO TWICE A DAY December 15, 2022 1:00am Start: 12-15-2022 MODUCHOL Activ e SL/PO TWICE A DAY December 15, 2022 12:00am Phytosterol-Pantethine (Cholestoff Complete) 300-100 mg capsule (1 source) Start: 03-27-2025 take 1 capsule by mouth twice daily Phytosterol-Pantethine (Cholestoff Complete) 300-100 mg capsule Active 1 NMA PO TWICE A DAY March 27, 2025 12:00am potassium chloride 20 meq extended release oral tablet (20 sources) Start: 12-13-2022 End: 01-12-2023 take 1 tablet by mouth once daily Potassium Chloride 20 mEq tablet extended release Discontinued 20 meq PO DAILY December 13, 2022 1:00am January 12, 2023 3:20pm predniSONE 20 mg oral tablet (20 sources) Start: 12-08-2022 End: 01-12-2023 take 1 tablet by mouth once daily Prednisone 20 mg Tablet Discontinued 20 mg PO DAILY December 08, 2022 1:00am January 12, 2023 3:20pm sulfamethoxazole 800 mg / trimethoprim 160 mg oral tablet (2 sources) Dihydrofolate Reductase Inhibitor Antibacterial, Sulfonamide Antimicrobial Start: 08-01-2024 End: 08-08-2024 Sulfamethoxazole-Trimeth oprim (Bactrim Ds) 800-160 mg tablet Discontinued 1 {tbl} PO Q12H 14 7 August 01, 2024 12:00am August 07, 2024 12:00am August 08, 2024 12:05am ticagrelor 90 mg oral tablet (20 sources) Start: 12-10-2022 End: 01-12-2023 take 1 tablet by mouth twice daily Ticagrelor (Brilinta) 90 mg Tablet Discontinued 90 mg PO TWICE A DAY December 10, 2022 1:00am January 12, 2023 3:40pm vitamin b12 1 mg oral capsule (20 sources) Vitamin B12 Start: 11-30-2017 End: 03-27-2025 take 1 capsule by mouth once daily Cyanocobalamin (Vitamin B-12) 1,000 MCG capsule Discontinued 1000 ug PO DAILY November 30, 2017 1:00am March 27, 2025 9:27am Problems Active Problems Problem Classification Problem Date Documented Da te Episodic/Chronic Acute myocardial infarction (20 sources) Myocardial infarction; Translations: [Non-ST elevation (NSTEMI) myocardial infarction] Chronic Cardiac dysrhythmias (20 sources) Irregular heart beat; Translations: [Cardiac arrhythmia, unspecified] 01-12-2023 Chronic Cardiac dysrhythmias (20 sources) Palpitations; Translations: [Palpitations] Onset: 03-27-2025 04-10-2023 Episodic Coagulation and hemorrhagic disorders (19 sources) Finding related to bruising; Translations: [Spontaneous ecchymoses] 12-19-2022 Episodic Conditions associated with dizziness or vertigo (20 sources) Vertigo; Translations: [Dizziness and giddiness] 11-30-2017 Episodic Comment on above: has had this in the past and it ios recurrent Coronary atherosclerosis and other heart disease (20 sources) Preinfarction syndrome; Translations: [Unstable angina] Onset: 03-27-2025 Chronic Comment on above: Osiro 2.5 X 9 FARRUKH to first OM ostial, and Osiro 4.0 X 9 FARRUKH to CX 11/2022 Disorders of lipid metabolism (20 sources) Hyperlipidemia; Translations: [Hyperlipidemia, unspecified] Chronic Comment on above: intolerant of statin s Essential hypertension (20 sources) Hypertensive disorder; Translations: [Essential (primary) hypertension] Onset: 08-20-2024 Chronic Fluid and electrolyte disorders (20 sources) Dehydration; Translations: [Dehydration] 12-01-2017 Episodic Malaise and fatigue (14 sources) Fatigue; Translations: [Other fatigue] 03-13-2023 Episodic Nausea and vomiting (20 sources) Intractable nausea and vomiting; Translations: [Nausea with vomiting, unspecified] 11-30-2017 Episodic Nonspecific chest pain (20 sources) Chest pain; Translations: [Chest pain, unspecified] Episodic Other nervous system disorders (1 source) Other hereditary and idiopathic neuropathies; Translations: [Other hereditary and idiopathic neuropathies] Onset: 04-28-2025 Chronic Other skin disorders (2 sources) Ingrowing great toenail; Translations: [Ingrowing nail] 08-01-2024 Episodic Sprains and strains (14 sources) Strain of muscle at thorax level; Translations: [Strain of muscle and tendon of unspecified wall of thorax, initial encounter] 03-21-2023 Episodic Superficial injury; contusion (20 sources) Corneal abrasion; Translations: [Injury of conjunctiva and corneal abrasion without foreign body, unspecified eye, initial encounter] 11-30-2017 Episodic Unclassified (1 source) Other specified cough; Translations: [Other specified cough] Onset: 03-03-2025 Viral infection (2 sources) Disease caused by 2019-nCoV; Translations: [COVID-19] 09-06-2024 Episodic Past or Other Problems Problem Classification Problem Date Documented Da te Episodic/Chronic Other nervous system disorders (1 source) Anesthesia of skin; Translations: [Anesthesia of skin] Onset: 07-03-2024 Episodic Other screening for suspected conditions (not mental disorders or infectious disease) (1 source) Encounter for screening mammogram for malignant neoplasm of breast; Translations: [Encounter for screening mammogram for malignant neoplasm of breast] Onset: 08-01-2024 Episodic Results Test Name Value Interpretation Reference Range Facility Anion gap in Serum or Plasma Ordered By: Debra Goodman on 03-27-2025 Anion gap [Moles/Vol] 13 mmol/L 5-15 [facility] BUN/creatinine ratioOrdered By: Debra Goodman on 03-27-2025 Urea nitrogen/Creatinine [Mass ratio] 17.9 mg/mg 10-20 [facility] Bilirubin, totalOrdered By: Debra Goodman on 03-27-2025 Bilirubin [Mass/Vol] 0.88 mg/dL 0.00-1.30 [facility] Carbon dioxide, total [Moles /volume] in Central venous bloodOrdered By: Debra Goodman on 03-27-2025 CO2 [Moles/Vol] 23.2 mmol/L 21.0-32.0 [facility] Cardiology Visit Reporton Cardiology Visit Report [facility] [facility] [address] [facility] [place] [address] OFFICE VISIT Date of Service: 03/27/25 MR#: [id number] Acct: [id number] Name: SHARON LOVE Rep #: [id number] : 1940 Provider: EPIFANIO Lane Age/Sex: 84/F Location: [facility] Status: Signed HPI HPI History of Present Illness Details: Sharon Love is an 84 year old female that presented to [facility] on December 08, 2022 with chest discomfort. She had chest discomfort that started the night of the admission that radiated to both arms she also had some shortness of breath. Her troponins were elevated. She did undergo a urgent heart catheterization which demonstrated severe coronary artery disease involving the circumflex with the obtuse marginal and the main circumflex artery with significant stenosis noted. Moderate disease of the LAD. Patient underwent stenting to her OM 1 and mid circumflex. Metoprolol and Brilinta were added to patient's medications. She also has a history of hypertension and hyperlipidemia. Patient's appointment today was moved up due to PCPs concerns over elevated heart rates. Pt notes that prior to her going to [place] she was having increased HR. They wake her up at night were she feels that she has a racing heart. She does not have any other symptoms with it. It is more so in the middle of the night. She did have a sleep study done several years ago this was negative- per pt. It was done by Dr. Malave. She has been going to [employer] without issues. 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 Accompanied by: Is patient in pain?: No Allergies Bpobsda-UTQ-EjN Reductase Inhibitor Allergy (Severe, Verified 03/27/25 09:24) Pain in joints Penicillins Allergy (Verified 03/27/25 09:24) Unknown metoprolol Adverse Reaction (Intermediate, Verified 03/27/25 09:59) Other Medications ???Medication ???Instructions ???Recorded ???Confirmed ???Type aspirin 81 mg chewable tablet 81 mg PO QHS heart health 02/15/14 03/27/25 History glucosamine sulfate 2KCl 500 mg 1,000 mg PO BID supplement 4 03/27/25 History capsule (Glucosamine Relief) multivitamin with folic acid 400 1 tab PO DAILY supplement 02/15/14 03/27/25 History mcg tablet (Thera) nitroglycerin 0.4 mg sublingual 0.4 mg sublingual Q5M PRN Chest 03/27/25 Rx tablet pain #30 tabs losartan 100 mg tablet 100 mg PO QHS Pt going out of 08/2003/27/25 Rx state for 3 months #90 tabs calcium carbonate (Calcium 600) 600 mg PO DAILY 06/19/24 03/27/25 History cholecalciferol (vitamin D3) 25 25 mcg PO DAILY 06/19/24 03/27/25 History mcg (1,000 unit) tablet collagen 1,000 mg PO BID 06/19/24 03/27/25 History vitamin E 670 mg (1,000 unit) 670 mg PO DAILY 06/19/24 03/27/25 History capsule amlodipine 2.5 mg tablet 2.5 mg PO DAILY blood pressure #90 12/18/24 03/27/25 Rx tabs hydrochlorothiazide 12.5 mg tablet 12.5 mg PO DAILY #90 tabs 03/27/25 Rx coffee extract 100 mg-phosphatidyl cap PO 03/27/25 03/27/25 History serine 100 mg capsule (Neuriva Original) phytosterol 300 mg-pantethine 100 1 cap PO BID 03/27/25 03/27/25 Hi story mg capsule (CholestOff Complete) Ejection fraction %: 60 Have you fallen in the past year?: No Nurse's Note: Needs new Rx for nitroglycerin sent to [facility]. [facility] Medical History Abnormal bruising Myocardial infarct Essential hypertension Unstable angina Sensorineural hearing loss Dehydration Hypokalemia HLD (hyperlipidemia) Vertigo Intractable nausea and vomiting Surgical History History of cholecystectomy History of coronary artery stent placement (12/09/22) H/O: hysterectomy Family History Sister Pacemaker Father CVA (cerebral vascular accident) Social History Smoking Status: Never smoker alcohol intake: never substance use type: does not use caffeine: No ROS Const Const: Negative for fatigue or weakness Eyes Eyes: Negative for change in vision ENT ENT: Positive for dizziness; Negative for balance problems Cardio Chest Pain: No Palpitations: Yes feels like its: fast Edema: Bilateral Resp Respiratory: Negative for SOB with activity, SOB at rest or SOB orthopnea SOB lying down GI GI: Negative naus (more content not included)... Normal [facility] Chloride assayOrdered By: Ashley Goodman on 03-27-2025 Chloride [Moles/Vol] 105 mmol/L 98-108 [facility] Comprehensive Metabolic Prof ilon 03-27-2025 Albumin [Mass/Vol] 4.3 g/dL Normal 3.4-4.8 [facility] Comment on above: Performed By: #### L 500.4050, L501.5200, L501.9520 #### [facility] [address] [place], [address] Albumin/Globulin [Mass ratio] 1.7 {ratio} Normal 0.9-2.4 [facility] Comment on above: Performed By: #### L 500.4050, L501.5200, [id number] #### [facility] [address] [place], [address] ALK PHOS 68 U/L Normal 35-104 [facility] Comment on above: Performed By: #### L 500.4050, [id number], [id number] #### [facility] [address] [place], [address] ALT [Catalytic activity/Vol] 15 U/L Normal <=34 [facility] Comment on above: Performed By: #### L 500.4050, [id number], [id number] #### [facility] [address] [place], [address] AST [Catalytic activity/Vol] 27 U/L Normal <=31 [facility] Comment on above: Performed By: #### L 500.4050, [id number], [id number] #### [facility] [address] [place], [address] Bilirubin [Mass/Vol] 0.88 mg/dL Normal 0.00-1.30 [facility] Comment on above: Performed By: #### L [id number], [id number], [id number] #### [facility] [address] [place], [address] BUN/CRE 17.9 RATIO Normal 10-20 [facility] Comment on above: Performed By: #### L 500.4050, [id number], [id number] #### [facility] [address] [place], [address] Calcium [Mass/Vol] 9.2 mg/dL Normal 7.6-11.0 [facility] Comment on above: Performed By: #### L 500.4050, L501.5200, L501.9520 #### [facility] [address] [place], [address] Chloride [Moles/Vol] 105 mmol/L Normal 98-108 [facility] Comment on above: Performed By: #### L 500.4050, L501.5200, L501.9520 #### [facility] [address] [place], [address] CO2 [Moles/Vol] 23.2 mmol/L Normal 21.0-32.0 [facility] Comment on above: Performed By: #### L 500.4050, L501.5200, L501.9520 #### [facility] [address] [place], [address] Creatinine [Mass/Vol] 0.96 mg/dL Normal 0.70-1.20 [facility] Comment on above: Performed By: #### L 500.4050, L501.5200, L501.9520 #### [facility] [address] [place], [address] GAP 13 Normal 5-15 [facility] Comment on above: Performed By: #### L 500.4050, L501.5200, L501.9520 #### [facility] [address] [place], [address] GFR/1.73 sq M.predicted among non-blacks MDRD (S/P/Bld) [Vol rate/Area] 59 mL/min/{1.73_m2} Low >60 [facility] Comment on above: Result Comment: mL/m in/1.73m2 CKD-EPI Creatinine Equation (2020) Performed By: #### L 500.4050, L501.5200, L501.9520 #### [facility] [address] [place], [address] Globulin (S) [Mass/Vol] 2.6 g/dL Normal 2.2-4.2 [facility] Comment on above: Performed By: #### L 500.4050, L501.5200, L501.9520 #### [facility] [address] [place], [address] Glucose [Mass/Vol] 103 mg/dL High 70-99 [facility] Comment on above: Performed By: #### L 500.4050, L501.5200, L501.9520 #### [facility] [address] [place], [address] Potassium [Moles/Vol] 3.7 mmol/L Normal 3.3-5.1 [facility] Comment on above: Performed By: #### L 500.4050, L501.5200, L501.9520 #### [facility] [address] [place], [address] Sodium [Moles/Vol] 141 mmol/L Normal 133-145 [facility] Comment on above: Performed By: #### L 500.4050, L501.5200, L501.9520 #### [facility] [address] [place], [address] T PROT 6.8 g/dL Normal 5.9-8.4 [facility] Comment on above: Performed By: #### L 500.4050, L501.5200, L501.9520 #### [facility] [address] [place], [address] Urea nitrogen [Mass/Vol] 17 mg/dL Normal 4-19 [facility] Comment on above: Performed By: #### L 500.4050, L501.5200, L501.9520 #### [facility] [address] [place], [place], [address] Glomerular filtration rate ( GFR) estimation/1.73 sq m using serum, plasma, or whole bOrdered By: Debra Goodman on 03-27-2025 GFR/1.73 sq M.predicted among non-blacks MDRD (S/P/Bld) [Vol rate/Area] 59 mL/min/{1.73_m2} Low >60 [facility] Comment on above: mL/min/1.73m2 CKD-EP I Creatinine Equation (2020) Laboratory - Chemistry and C hemistry - challengeOrdered By: Debra Goodman on 03-27-2025 AST [Catalytic activity/Vol] 27 U/L <32 [facility] Magnesiumon 03-27-2025 Magnesium [Mass/Vol] 2.3 mg/dL High 1.5-2.2 [facility] Comment on above: Performed By: #### L 500.4050, L501.5200, L501.9520 #### [facility] [address] [place], [address] Magnesium measurement (mass/ volume)Ordered By: Debra Goodman on 03-27-2025 Magnesium (Unsp spec) [Mass/Vol] 2.3 mg/dL High 1.5-2.2 [facility] Potassium measurement (mass/ volume)Ordered By: Debra Goodman on 03-27-2025 Potassium (Unsp spec) [Mass/Vol] 3.7 mmol/L 3.3-5.1 [facility] Serum creatinine measurement (mass/volume)Ordered By: Debra Goodman on 03-27-2025 Creatinine [Mass/Vol] 0.96 mg/dL 0.70-1.20 [facility] Serum globulin measurementOr dered By: Debra Goodman on 03-27-2025 Globulin (S) [Mass/Vol] 2.6 g/dL 2.2-4.2 [facility] Serum glucose measurement (m ass/volume)Ordered By: Debra Goodman on 03-27-2025 Glucose [Mass/Vol] 103 mg/dL High 70-99 [facility] Serum or plasma alanine sepulveda otransferase (ALT) measurementOrdered By: Debra Goodman on 03-27-2025 ALT [Catalytic activity/Vol] 15 U/L <35 [facility] Serum or plasma albumin tyron urement (mass/volume)Ordered By: Debra Goodman on 03-27-2025 Albumin [Mass/Vol] 4.3 g/dL 3.4-4.8 [facility] Serum or plasma albumin/glob ulin mass ratioOrdered By: Debra Goodman on 03-27-2025 Albumin/Globulin [Mass ratio] 1.7 {ratio} 0.9-2.4 [facility] Serum or plasma alkaline reva sphatase measurementOrdered By: Debra Goodman on 03-27-2025 ALP [Catalytic activity/Vol] 68 U/L 35-104 [facility] Serum or plasma calcium tyron urement (mass/volume)Ordered By: Debra Goodman on 03-27-2025 Calcium [Mass/Vol] 9.2 mg/dL 7.6-11.0 [facility] Serum or plasma urea nitroge n measurement (mass/volume)Ordered By: Debra Goodman on 03-27-2025 Urea nitrogen [Mass/Vol] 17 mg/dL 4-19 [facility] Sodium levelOrdered By: Kain Goodman on 03-27-2025 Sodium [Moles/Vol] 141 mmol/L 133-145 [facility] TSH DL <= 0.005 mIU/L QnOrde red By: Debra Goodman on 03-27-2025 TSH Qn 2.270 uIU/mL 0.300-4.200 [facility] Thyroid Stim Hormone (TSH)on 03-27-2025 TSH 2.270 uIU/mL Normal 0.300-4.200 [facility] Comment on above: Performed By: #### L 500.4050, L501.5200, L501.9520 #### [facility] [address] [place], [place], [id number] Total proteinOrdered By: Donato Goodman on 03-27-2025 Protein [Mass/Vol] 6.8 g/dL 5.9-8.4 [facility] Chest PA and Lateralon 02-25 Chest PA and Lateral [facility] [address] [place] [address] Chest PA and Lateral MR#: [id number] Acct: [id number] Name: SHARON LOVE Rep #: [id number] : 1940 F 84 From: Huy Pimentel MD PCP: Dr. Joe Merino MD Status: REG CLI Study: Chest PA and Lateral Date of Exam: 02/25/25 Exam# [id number] Ordering Dr: Joe Merino MD PROCEDURE: CHEST PA AND LATERAL 02/25/2025 REASON FOR EXAM: PRODUCTIVE COUGH TECHNIQUE: Frontal and lateral views of the chest. PA and lateral COMPARISON: 03/21/2023 FINDINGS: The lungs appear clear. Pulmonary vascularity appears within limits. No pleural effusion. The cardiac and mediastinal contours appear within limits. Status post cholecystectomy. Atherosclerotic changes at the thoracic aorta and spondylosis/discogenic change thoracic spine again noted. RAD/Chest PA and Lateral IMPRESSION: No evidence of acute disease. Reading Location: [facility] CC: Dr. Joe Merino MD Cherry Cutter: Signed Normal [facility] Cardiology Visit Reporton Cardiology Visit Report [facility] [address] [place] [address] OFFICE VISIT Date of Service: 12/18/24 MR#: [id number] Acct: [id number] Name: SHARON LOVE Rep #: [id number] : 1940 Provider: EPIFANIO Lane Age/Sex: 84/F Location[place] [facility] [place] Status: Signed HPI HPI History of Present Illness Details: Sharon Love is an 84 year old female that presented to [facility] on December 08, 2022 with chest discomfort. She had chest discomfort that started the night of the admission that radiated to both arms she also had some shortness of breath. Her troponins were elevated. She did undergo a urgent heart catheterization which demonstrated severe coronary artery disease involving the circumflex with the obtuse marginal and the main circumflex artery with significant stenosis noted. Moderate disease of the LAD. Patient underwent stenting to her OM 1 and mid circumflex. Metoprolol and Brilinta were added to patient's medications. She also has a history of hypertension and hyperlipidemia. From a cardiac standpoint, patient is doing well. She does not have any chest discomfort/heaviness/tig htness. Her exercise tolerance is stable for her age. She does not have any worsening symptoms of shortness of breath. She does not have any orthopnea. She denies PND. She does not have any symptoms of congestive heart failure. She does not have any palpitations that she is aware of. She does sometimes have lightheadedness, this is better with doing exercises for vertigo. She does not have any near-syncope or syncope. She does have some swelling in her legs, but it does go away in the AM. She does not have any symptoms of claudication. She is going to [place] for a month. Intake Vital Signs 06/19/24 14:17 12/18/24 13:54 12/18/24 14:00 Height 4 ft 11 in 4 ft 11 in 4 ft 11 in Weight: 118 lb BMI 23.8 BP 127/71 H Blood Pressure Location Lt brachial Position Sitting Respiration 18 Pulse 68 Pulse Source Monitor Temp 97.5 F L Temperature Source Oral Pulse Oximetry (%) 99 Oxygen Delivery Method room air Intake Visit Reasons: 6 M FU Is patient in pain?: No Allergies Xnvjamn-NIM-HzN Reductase Inhibitor Allergy (Severe, Verified 12/18/24 13:56) Pain in joints Penicillins Allergy (Verified 12/18/24 13:56) Unknown Medications ???Medication ???Instructions ???Recorded ???Confirmed ???Type aspirin 81 mg chewable tablet 81 mg PO Q heart [facility] 02/15/14 12/18/24 History glucosamine sulfate 2KCl 500 mg 1,000 mg PO BID supplement 02/15/14 12/18/24 History capsule (Glucosamine Relief) multivitamin with folic acid 400 1 tab PO DAILY supplement 02/15/14 12/18/24 History mcg tablet (Thera) cyanocobalamin (vitamin B-12) 1,000 mcg PO DAILY supplement 11/30/17 12/18/24 History 1,000 mcg capsule nitroglycerin 0.4 mg sublingual 0.4 mg sublingual Q5M PRN Chest 12/10/22 12/18/24 Rx tablet pain #30 tabs losartan 100 mg tablet 100 mg PO QHS Pt going out of 12/05/23 12/18/24 Rx state for 3 months #90 tabs calcium carbonate (Calcium 600) 600 mg PO DAILY 06/19/24 12/18/24 History cholecalciferol (vitamin D3) 25 25 mcg PO DAILY 06/19/24 12/18/24 History mcg (1,000 unit) tablet collagen 1,000 mg PO BID 06/19/24 12/18/24 History folate 1,000 mg PO DAILY 06/19/24 12/18/24 History omega 6-fzr-xkl-fish oil 300 1 cap PO DAILY 06/19/24 12/18/24 History mg-1,000 mg capsule (Fish Oil) vitamin E 670 mg (1,000 unit) 670 mg PO DAILY 06/19/24 12/18/24 History capsule amlodipine 2.5 mg tablet 2.5 mg PO DAILY blood pressure #90 12/18/24 12/18/24 Rx tabs hydrochlorothiazide 12.5 mg tablet 12.5 mg PO DAILY #90 tabs 12/18/24 12/18/24 Rx Have you fallen in the past year?: No Nurse's Note: 1 yr follow up no acute concerns [facility] Medical History Abnormal bruising Myocardial infarct Essential hypertension Unstable angina Sensorineural hearing loss Dehydration Hypokalemia HLD (hyperlipidemia) Vertigo Intractable nausea and vomiting Surgical History History of cholecystectomy History of coronary artery stent placement (12/09/22) H/O: hysterectomy Family History Sister Pacemaker Father CVA (cerebral vascular accident) Social History Smoking Status: Never smoker alcohol intake: never substance use type: does not use caffeine: No ROS Const Const: Negative for fatigue, weakness, fever(s) or headache(s) Eyes Eyes: Negative for blind spots, loss of peripheral vision or transient loss of vision ENT ENT: Positive for neck pain (Arthritis); Negative for headache(s), (more content not included)... Normal [facility] Urgent Care Visit Reporton 1 Urgent Care Visit Report [facility] [address], [address] [place] [address] OFFICE VISIT Date of Service: 09/06/24 MR#: [id number] Acct: [id number] Name: SHARON LOVE Rep #: [id number] : 1940 Provider: EPIFANIO France Age/Sex: 83/F Location: [facility] [place] Status: Signed Intake Vital Signs 06/19/24 14:17 09/06/24 16:24 Height 4 ft 11 in BP 116/74 Blood Pressure Location Lt brachial Position Sitting Respiration 12 Pulse 113 H Pulse Source Monitor Temp 98.4 F Temp Source Temporal Pulse Oximetry (%) 98 Oxygen Delivery Method room air Intake Visit Reasons: exposed to covid chills, cough Allergies Gnfeysr-SCG-TvC Reductase Inhibitor Allergy (Severe, Verified 09/06/24 16:25) Pain in joints Penicillins Allergy (Verified 09/06/24 16:25) Unknown Have you fallen in the past year?: No PFSH Medical History Abnormal bruising Myocardial infarct Essential hypertension Unstable angina Sensorineural hearing loss Dehydration Hypokalemia HLD (hyperlipidemia) Vertigo Intractable nausea and vomiting Surgical History History of cholecystectomy History of coronary artery stent placement (12/09/22) H/O: hysterectomy Family History Sister Pacemaker Father CVA (cerebral vascular accident) Social History Smoking Status: Never smoker alcohol intake: never substance use type: does not use caffeine: No HPI HPI Details: SHARON LOVE, is a 83 F who presents to the office today for complaint of cough and congestion starting yesterday. Patient states that she was around a person 4 days ago who notified her that she tested positive for COVID today. Patient denies fever, chills, sweats. No hemoptysis, shortness of breath or difficulty breathing. No loss of taste or smell. No other associated symptoms or alleviating/aggravating factors. ROS Const Constitutional: No other (6 system ROS completed with pertinent findings in the HPI otherwise normal.) Exam Const General: cooperative and well developed HENMT Head: normal to inspection and atraumatic Ears: hearing grossly normal bilaterally Nose: nasal discharge clear Face and sinus: normal facial exam Mouth: oral mucosae normal Throat: abnormal tonsil bilaterally hypertrophy 1+ Resp Effort Inspection: normal respiratory effort and no audible wheezes Auscultation: Bilateral: Clear to Auscultation Cardio Palpation: normal PMI Rate: regular rate Rhythm: regular rhythm Neuro General: patient alert and CN's II-XI intact bilaterally Psych Appearance: grossly normal Mental Status: mental status grossly normal Results POC SARS AG POC SARS AG Positive Last Edit by Ana Sommer on 09/06/24 16:34 Coding Level of Care Code Off vis,new,level 3 Diagnoses COVID-19 U07.1 Assessment and Plan Assessment and Plan (1) COVID-19: Status: Acute Plan: Patient tested positive for COVID in the office today. Decadron as prescribed today. Encouraged to get plenty of rest, drink lots of clear liquids, and use Tylenol or Ibuprofen (unless contraindicated) for fever and comfort. Patient also educated on other symptomatic management techniques. To be seen in 7-10 days if no improvement; sooner if worsening of symptoms. Patient advised of potential red flags and when appropriate to report to the ED. Patient verbalized understanding and agreement with all the above. Orders: Orders POC Rapid SARS Antigen Today Medications: New dexamethasone 6 mg PO DAILY 5 tabs 0RF Clinical Quality Measures Falls Risk Screening/Assistive Devices Have you fallen in the past year?: No 09/06/24 9945 Date Jarrett Moulton Signature: Date (if applicable) CC: Normal [facility] Urgent Care Visit Reporton 0 08-01-2024 Urgent Care Visit Report [facility] [address], [address] [place] [address] OFFICE VISIT Date of Service: 08/01/24 MR#: [id number] Acct: [id number] Name: SHARON LOVE Rep #: [id number] : 1940 Provider: EPIFANIO France Age/Sex: 83/F Location: [facility] [place] Status: Signed Intake Vital Signs 06/19/24 14:17 08/01/24 10:12 Height 4 ft 11 in Weight: 121 lb BMI 24.4 BP 94/59 L 122/58 H Blood Pressure Location Lt brachial Lt brachial Position Sitting Sitting Respiration 14 16 Pulse 73 80 Pulse Source Monitor NIBP Temp 98.7 F Temp Source Temporal Pulse Oximetry (%) 97 98 Oxygen Delivery Method room air room air Intake Visit Reasons: PAIN L BIG TOE Chief Complaint: toe infection Machinist Outside Required: No Is patient in pain?: Yes Allergies Awadygw-IZC-DbZ Reductase Inhibitor Allergy (Severe, Verified 08/01/24 10:12) Pain in joints Penicillins Allergy (Verified 08/01/24 10:12) Unknown Is last menstrual period known: No Post menopausal: Yes Patient : No Have you fallen in the past year?: No Nurse's Note: left great toe pain/redness. pt cut her toenails 2 days ago, accidentally cut her left great toe skin. pain/redness has continued to worsen since. concern for infection PFSH Medical History Abnormal bruising Myocardial infarct Essential hypertension Unstable angina Sensorineural hearing loss Dehydration Hypokalemia HLD (hyperlipidemia) Vertigo Intractable nausea and vomiting Surgical History History of cholecystectomy History of coronary artery stent placement (12/09/22) H/O: hysterectomy Family History Sister Pacemaker Father CVA (cerebral vascular accident) Social History Smoking Status: Never smoker alcohol intake: never substance use type: does not use caffeine: No HPI HPI Chief Complaint: toe infection Details: SHARON LOVE, is a 83 F who presents to the office today for concern for possible toe infection. Patient states that her left great toe is red and irritated after cutting her toenails 2 days ago. She denies fever, chills, sweats. No nausea, vomiting, diarrhea. No numbness, tingling or loss of range of motion to the toe or foot. No other associated symptoms or alleviating/aggravating factors. ROS Const Constitutional: No other (6 system ROS completed with pertinent findings in the HPI otherwise normal.) Exam Const General: cooperative and healthy appearing Resp Effort Inspection: normal respiratory effort Cardio Rate: regular rate Skin General: no rashes or lesions noted Neuro General: patient alert Extrem Other: Left great toe ingrown toenail medially with no drainage, streaking or warmth. Psych Appearance: grossly normal Mental Status: mental status grossly normal Coding Level of Care Code Off vis,new,level 3 Diagnoses Ingrown left greater toenail L60.0 Assessment and Plan Assessment and Plan (1) Ingrown left greater toenail: Status: Acute Plan: Bactrim as prescribed today. Encouraged to get plenty of rest, drink lots of clear liquids, and use Tylenol or Ibuprofen (unless contraindicated) for comfort. Patient also educated on other symptomatic management techniques. To be seen in 7-10 days if no improvement; sooner if worsening of symptoms. Patient advised of potential red flags and when appropriate to report to the ED. Patient verbalized understanding and agreement with all the above. Medications: New sulfamethoxazole-trimeth oprim 800-160 mg (Bactrim DS) 1 TAB PO Q12H 7 days 14 tabs 0RF Clinical Quality Measures Falls Risk Screening/Assistive Devices Have you fallen in the past year?: No 08/01/24 1042 Date Jarrett Moulton Signature: Date (if applicable) CC: Normal [facility] Basic Metabolic Profile (BMP )on 07-30-2024 BUN/CRE 20.1 RATIO High 10-20 [facility] Comment on above: Order Comment: PER O FFICE NURSE-TO DO WRITTEN ORDER-OTHER TESTS ARE Performed By: #### L 500.2500 #### [facility] [address] [place], [address] CA,Total 9.1 mg/dL Normal 8.5-10.1 [facility] Comment on above: Order Comment: PER O FFICE NURSE-TO DO WRITTEN ORDER-OTHER TESTS ARE Performed By: #### L 500.2500 #### [facility] [address] [place], [address] Chloride [Moles/Vol] 106 mmol/L Normal 98-107 [facility] Comment on above: Order Comment: PER O FFICE NURSE-TO DO WRITTEN ORDER-OTHER TESTS ARE Performed By: #### L 500.2500 #### [facility] [address] [place], [address] CO2 [Moles/Vol] 26.0 mmol/L Normal 21.0-32.0 [facility] Comment on above: Order Comment: PER O FFICE NURSE-TO DO WRITTEN ORDER-OTHER TESTS ARE Performed By: #### L 500.2500 #### [facility] [address] [place], [address] Creatinine [Mass/Vol] 0.94 mg/dL Normal 0.55-1.02 [facility] Comment on above: Order Comment: PER O FFICE NURSE-TO DO WRITTEN ORDER-OTHER TESTS ARE Result Comment: The validity of the calculated GFR GFRAA in patients over 70 years has not been determined. Clinical correlation is essential. Performed By: #### L 500.2500 #### [facility] [address] [place], [address] EST GFR - AA 73 mL/min Normal >60 [facility] Comment on above: Order Comment: PER O FFICE NURSE-TO DO WRITTEN ORDER-OTHER TESTS ARE Result Comment: Afri can Guinean GFR Calc Performed By: #### L 500.2500 #### [facility] [address] [place], [address] GAP 8 Normal 5-15 [facility] Comment on above: Order Comment: PER O FFICE NURSE-TO DO WRITTEN ORDER-OTHER TESTS ARE Performed By: #### L 500.2500 #### [facility] [address] [place], [address] GFR/1.73 sq M.predicted among non-blacks MDRD (S/P/Bld) [Vol rate/Area] 60 mL/min/{1.73_m2} Normal >60 [facility] Comment on above: Order Comment: PER O FFICE NURSE-TO DO WRITTEN ORDER-OTHER TESTS ARE Result Comment: Non- GFR Calc Performed By: #### L 500.2500 #### [facility] [address] [place], [address] Glucose [Mass/Vol] 98 mg/dL Normal 74-106 [facility] Comment on above: Order Comment: PER O FFICE NURSE-TO DO WRITTEN ORDER-OTHER TESTS ARE Performed By: #### L 500.2500 #### [facility] [address] [place], [address] Potassium [Moles/Vol] 3.6 mmol/L Normal 3.5-5.1 [facility] Comment on above: Order Comment: PER O FFICE NURSE-TO DO WRITTEN ORDER-OTHER TESTS ARE Performed By: #### L 500.2500 #### [facility] [address] [place], [address] Sodium [Moles/Vol] 140 mmol/L Normal 136-145 [facility] Comment on above: Order Comment: PER O FFICE NURSE-TO DO WRITTEN ORDER-OTHER TESTS ARE Performed By: #### L 500.2500 #### [facility] [address] [place], [place], [id number] Urea nitrogen [Mass/Vol] 19 mg/dL High 7-18 [facility] Comment on above: Order Comment: PER O FFICE NURSE-TO DO WRITTEN ORDER-OTHER TESTS ARE Performed By: #### L 500.2500 #### [facility] [address] [place], [place], [id number] SCRN MAMM (CAD)W/GREGORY BILATo n 07-01-2024 SCRN MAMM (CAD)W/GREGORY BILAT [facility] Imaging Services [address] [place], [place] [id number] SCRN MAMM (CAD)W/GREGORY BILAT MR#: [id number] Acct: [id number] Name: SHARON LOVE Rep #: [id number] : 1940 F 83 From: Aren fountain MD PCP: Dr. Kyara Odonnell MD Status: [facility] Study: SCRN MAMM (CAD)W/GREGORY BILAT Date of Exam: 04/19 Exam# [id number] Ordering Dr: Kyara Odonnell MD [id number] MAMMOGRAPHY - BILATERAL SCREENING REASON FOR EXAM: Female, 83 years old. Routine annual screening examination. PERTINENT HISTORY: Aunt with breast cancer. TECHNIQUE: Digital bilateral breast gregory (3D mammographic acquisition) in the CC and MLO projections. 2-D mediolateral oblique (MLO) and craniocaudad (CC) views of both breasts were obtained. CAD: Full Field Digital Mammography with Computer Added Detection was performed. COMPARISON: Comparison is made with prior study June 30, 2023 and June 28, 2022. FINDINGS: Breast Composition: The breasts are heterogeneously dense, which may obscure small masses. There are no dominant masses or suspicious calcifications. Stable scattered bilateral calcifications. No focal cluster seen. No other significant abnormalities are identified. There has been no significant change since the prior study. BI/SCRN MAMM (CAD)W/GREGORY BILAT IMPRESSION: Stable bilateral screening mammogram. Yearly follow-up mammogram recommended. (A) ASSESSMENT CATEGORY: BIRADS Category 2: Benign. A letter regarding these results will be sent to the patient by the facility within 30 days. Approximately 10% of breast cancers are not detected by mammography. A normal mammogram should not delay biopsy of a clinically suspicious abnormality. [id number] Electronically Signed: Aren Meadows MD at 9:09 EDT Reading Location ID and State: [facility] / [place] , Service support , CC: Dr. Kyara Odonnell MD Cherry Cutter: Signed Normal [facility] Cardiology Visit Reporton Cardiology Visit Report [facility] [address] [place] [address] OFFICE VISIT Date of Service: 06/19/24 MR#: [id number] Acct: [id number] Name: SHARON LOVE Rep #: [id number] : 1940 Provider: EPIFANIO Lane Age/Sex: 83/F Location: [facility] [place] Status: Signed HPI HPI History of Present Illness Details: Sharon Love is an 83 year old female that presented to [facility] on December 08, 2022 with chest discomfort. She had chest discomfort that started the night of the admission that radiated to both arms she also had some shortness of breath. Her troponins were elevated. She did undergo a urgent heart catheterization which demonstrated severe coronary artery disease involving the circumflex with the obtuse marginal and the main circumflex artery with significant stenosis noted. Moderate disease of the LAD. Patient underwent stenting to her OM 1 and mid circumflex. Metoprolol and Brilinta were added to patient's medications. She also has a history of hypertension and hyperlipidemia. From a cardiac standpoint, patient is doing well. She does not have any chest discomfort/heaviness/tig htness. Her exercise tolerance is stable for her age. She does not have any worsening symptoms of shortness of breath. She does not have any orthopnea. She denies PND. She does not have any symptoms of congestive heart failure. She does not have any palpitations that she is aware of. She does not have any lightheadedness or dizziness. She does not have any near- syncope or syncope. She does have some swelling in her legs, but it does go away in the AM. She does not have any symptoms of claudication. Intake Vital Signs 03/21/23 03:15 06/19/24 14:17 Height 4 ft 11 in 4 ft 11 in Weight: 121 lb BMI 24.4 BP 94/59 L Blood Pressure Location Lt brachial Position Sitting Respiration 14 Pulse 73 Pulse Source Monitor Pulse Oximetry (%) 97 Oxygen Delivery Method room air Intake Visit Reasons: 1 Y FU Accompanied by: Is patient in pain?: No Allergies [id number] Reductase Inhibitor Allergy (Severe, Verified 06/19/24 14:20) Pain in joints Penicillins Allergy (Verified 06/19/24 14:20) Unknown Medications ???Medication ???Instructions ???Recorded ???Confirmed ???Type aspirin 81 mg chewable tablet 81 mg PO QHS heart health 02/15/14 06/19/24 History glucosamine sulfate 2KCl 500 mg 1,000 mg PO BID supplement 02/15/14 06/19/24 History capsule (Glucosamine Relief) multivitamin with folic acid 400 1 tab PO DAILY supplement 02/15/14 06/19/24 History mcg tablet (Thera) cyanocobalamin (vitamin B-12) 1,000 mcg PO DAILY supplement 11/30/17 06/19/24 History 1,000 mcg capsule nitroglycerin 0.4 mg sublingual 0.4 mg sublingual Q5M PRN Chest 12/10/22 06/19/24 Rx tablet pain #30 tabs clopidogrel 75 mg tablet 75 mg PO DAILY Patient going out 12/05/23 06/19/24 Rx of state for 3 months #90 tabs hydrochlorothiazide 12.5 mg tablet 12.5 mg PO DAILY Patient going out 12/05/23 06/19/24 Rx of state for 3 months #90 tabs losartan 100 mg tablet 100 mg PO QHS Pt going out of 12/05/23 06/19/24 Rx state for 3 months #90 tabs MODUCHOL 2.5 mg PO/SL BID 06/19/24 History amlodipine 2.5 mg tablet 2.5 mg PO DAILY blood pressure #90 06/19/24 06/19/24 Rx tabs calcium carbonate (Calcium 600) 600 mg PO DAILY 06/19/24 06/19/24 History cholecalciferol (vitamin D3) 25 25 mcg PO DAILY 06/19/24 06/19/24 History mcg (1,000 unit) tablet collagen 1,000 mg PO BID 06/19/24 History folate 1,000 mg PO DAILY 06/19/24 History omega 6-kks-ill-fish oil 300 1 cap PO DAILY 06/19/24 06/19/24 History mg-1,000 mg capsule (Fish Oil) vitamin E 670 mg (1,000 unit) 670 mg PO DAILY 06/19/24 06/19/24 History capsule Ejection fraction %: 60 Have you fallen in the past year?: No PFSH Medical History Abnormal bruising Myocardial infarct Essential hypertension Unstable angina Sensorineural hearing loss Dehydration Hypokalemia HLD (hyperlipidemia) Vertigo Intractable nausea and vomiting Surgical History History of cholecystectomy History of coronary artery stent placement (12/09/22) H/O: hysterectomy Family History Sister Pacemaker Father CVA (cerebral vascular accident) Social History Smoking Status: Never smoker alcohol intake: never substance use type: does not use caffeine: No ROS Const Const: Negative for fatigue, weakness, fever(s) or headache(s) Eyes Eyes: Negative for blind spots, loss of peripheral vision or transient loss of vision ENT ENT: Positive for (more content not included)... Normal [facility] Cerv Spine 4 or 5 Viewson Cerv Spine 4 or 5 Views [facility] Imaging Services [address] [place] [address] Cerv Spine 4 or 5 Views MR#: [id number] Acct: [id number] Name: SHARON LOVE Rep #: [id number] : 1940 F 83 From: Elijah Bertrand MD PCP: Dr. Kyara Odonnell MD Status: REG CLI Study: Cerv Spine 4 or 5 Views Date of Exam: 06/14/24 Exam# [id number] Ordering Dr: Joe Merino MD [id number] STUDY: X-RAY - CERVICAL SPINE REASON FOR EXAM: Female, 83 years old. Numbness in hand, and neck pain TECHNIQUE: 5 view(s) of the cervical spine were obtained. COMPARISON: None FINDINGS: Normal anterior atlantoaxial articulation. Normal odontoid process. Normal cervical lordosis. There is multi-level endplate spondylosis. There is multi-level degenerative disc disease with multilevel disc space narrowing. Normal visualized intervertebral neuroforamina. The soft tissue structures are unremarkable. RAD/Cerv Spine 4 or 5 Views IMPRESSION: Moderate degenerative disc disease. MRI may be useful. Electronically Signed: Elijah Bertrand MD at 17:58 EDT , CC: Dr. Kyara Odonnell MD; Dr. Joe Merino MD [place]utter: Signed Normal [facility] Basophil percentageOrdered B y: Joe Merino on 03-14-2024 Potassium [Moles/Vol] 4.2 mmol/L 3.5-5.1 [facility] Basophil percentageOrdered B y: Joe Merino on 03-06-2024 Potassium [Moles/Vol] 3.6 mmol/L 3.5-5.1 [facility] Iron measurement (mass/mass) Ordered By: Joe Merino on 03-06-2024 Iron (Unsp spec) [Mass/Mass] 59 ug/dL 50-170 [facility] Laboratory - Chemistry and C hemistry - challengeOrdered By: Joe Merino on 03-06-2024 Ferritin [Mass/Vol] 153 ng/mL 8-252 [facility] No Panel InformationOrdered By: Joe Merino on 03-06-2024 Folate 62.60 ng/mL 3.1-55.4 [facility] Comment on above: Slight Hemolysis, Re sult may be falsely increased. Total Iron Binding Capacity 309 ug/dL 250-450 [facility] Vitamin B12 Level > 2000 pg/mL 211-911 [facility] Serum or plasma iron saturat ion measurement (mass fraction)Ordered By: Joe Merino on 03-06-2024 Iron saturation [Mass fraction] 19.1 % 15.0-55.0 [facility] Absolute lymphocyte countOrd ered By: Kyara Odonnell on 01-30-2024 Lymphocytes Auto (Unsp spec) [#/Vol] 1.74 10*3/uL 0.83-4.51 [facility] Automated lymphocyte count a s percentage of total leukocytesOrdered By: Kyara Odonnell on 01-30-2024 Lymphocytes/100 WBC Auto (Unsp spec) 30.9 % 19-41 [facility] Basophil percentageOrdered B y: Kyara Odonnell on 01-30-2024 Basophils/100 WBC (Bld) 0.9 % 0-1 [facility] Chloride [Moles/Vol] 107 mmol/L 98-107 [facility] Cholesterol [Mass/Vol] 144 mg/dL <200 [facility] Comment on above: <200 mg/dL Desirable 200-240 mg/dL Borderline >240 mg/dL High Risk Eosinophils/100 WBC (Bld) 3.4 % 0-5 [facility] Glucose [Mass/Vol] 91 mg/dL 74-106 [facility] Hemoglobin (Bld) [Mass/Vol] 12.7 g/dL 12.0-15.0 [facility] Monocytes/100 WBC (Bld) 11.5 % 0-10 [facility] Neutrophils (Bld) [#/Vol] 3.0 10*3/uL 2.0-7.7 [facility] Neutrophils/100 WBC (Bld) 53.1 % 47-70 [facility] Potassium [Moles/Vol] 3.3 mmol/L 3.5-5.1 [facility] Sodium [Moles/Vol] 142 mmol/L 136-145 [facility] Triglyceride [Mass/Vol] 160 mg/dL <199 [facility] Comment on above: The drugs N-Acetylcy steine and Metamizole may falsely depress this assay.Serum Triglycerides Reference Interval Normal <150 mg/dL Borderline high 150 - 199 mg/dL High 200 - 499 mg/dL Very High > or = 500 mg/dL WBC (Bld) [#/Vol] 5.6 10*3/uL 4.4-11.0 [facility] Determination of erythrocyte mean corpuscular volume (MCV)Ordered By: Kyara Odonnell on 01-30-2024 MCV (RBC) [Entitic vol] 94.7 fL 81-99 [facility] Erythrocyte distribution wid th ratioOrdered By: Kyara Odonnell on 01-30-2024 Erythrocyte distribution width (RBC) [Ratio] 13.1 % 11.6-14.6 [facility] Erythrocyte distribution wid th standard deviationOrdered By: Kyara Odonnell on 01-30-2024 Erythrocyte distribution width (RBC) [Entitic vol] 45.8 fL 35.1-43.9 [facility] Hematocrit Auto (Bld) [Volum e fraction]Ordered By: Kyara Odonnell on 01-30-2024 Hematocrit (Bld) [Volume fraction] 39.0 % 37-47 [facility] Immature granulocytes/100 WB C Auto (Bld)Ordered By: Kyara Odonnell on 01-30-2024 Immature granulocytes/100 WBC (Bld) 0.200 % 0.0-0.9 [facility] Comment on above: IG% - Immature Granu locytes (promyelocytes, myelocytes and metamyelocytes) > 1% indicates that a LEFT SHIFT is Present. Laboratory - Chemistry and C hemistry - challengeOrdered By: Kyara Odonnell on 01-30-2024 ALT [Catalytic activity/Vol] 21 U/L 13-56 [facility] Cholesterol in HDL [Mass/Vol] 48 mg/dL >40 [facility] Comment on above: The drugs N-Acetylcy steine and Metamizole may falsely depress this assay. Reference Range HDL <40 mg/dL Low HDL Cholesterol HDL >or= 60 mg/dL High HDL Cholesterol Cholesterol in LDL [Mass/Vol] 64 mg/dL 0-130 [facility] CO2 [Moles/Vol] 27.0 mmol/L 21.0-32.0 [facility] Urea nitrogen/Creatinine [Mass ratio] 18.9 mg/mg 10-20 [facility] Laboratory - Hematology and Cell countsOrdered By: Kyara Odonnell on 01-30-2024 MCH (RBC) [Entitic mass] 30.8 pg 27.0-32.0 [facility] MCHC (RBC) [Mass/Vol] 32.6 g/dL 32-36 [facility] Nucleated RBC/100 WBC (Bld) [Ratio] 0 % 0-5 [facility] Platelet mean volume (Bld) [Entitic vol] 9.8 fL 6.2-12.0 [facility] Platelets (Bld) [#/Vol] 255 10*3/uL 150-450 [facility] No Panel InformationOrdered By: Kyara Odonnell on 01-30-2024 Estimated GFR (MDRD) Amer 77 mL/min >60 [facility] Comment on above: GFR Calc Estimated GFR (MDRD) Non-Af Amer 64 mL/min >60 [facility] Comment on above: Non- GFR Calc Vitamin D 25-Hydroxy 48.2 ng/mL [facility] Comment on above: Vitamin D 25(OH) Sta tus Range Deficiency <20 ng/mL (50nmol/L) Insufficiency 20 - 30 ng/mL (50 - 75 nmol/L) Sufficiency 30 - 100 ng/mL (75 - 250 nmol/L) Toxicity >100 ng/mL (>250 nmol/L) VLDL Cholesterol 32 mg/dL 5-40 [facility] RBC Auto (Bld) [#/Vol]Ordere d By: Kyara Odonnell on 01-30-2024 RBC (Bld) [#/Vol] 4.12 10*6/uL 4.2-5.4 [facility] Serum or plasma calcium tyron urement (mass/volume)Ordered By: Kyara Odonnell on 01-30-2024 Calcium [Mass/Vol] 9.0 mg/dL 8.5-10.1 [facility] Serum or plasma creatinine m easurement (mass/volume)Ordered By: Kyara Odonnell on 01-30-2024 Creatinine [Mass/Vol] 0.90 mg/dL 0.55-1.02 [facility] Comment on above: The validity of the calculated GFR & GFRAA in patients over 70 years has not been determined. Clinical correlation is essential. Serum or plasma urea nitroge n measurement (mass/volume)Ordered By: Kyara Odonnell on 01-30-2024 Urea nitrogen [Mass/Vol] 17 mg/dL 7-18 [facility] Thin prep Papanicolaou smear with manual screeningOrdered By: Kyara Odonnell on 01-30-2024 Protein (U) [Mass/Vol] 9.5 mg/dL 0.0-11.8 [facility] Thin prep Papanicolaou smear with manual screening 23 U/L 15-37 [facility] Thin prep Papanicolaou smear with manual screening 8 5-15 [facility] Urine creatinine measurement (mass/volume)Ordered By: Kyara Odonnell on 01-30-2024 Creatinine (U) [Mass/Vol] 72.00 mg/dL NO RANGE EST. [facility] Urine protein/creatinine mas s ratioOrdered By: Kyara Odonnell on 01-30-2024 Protein/Creatinine (U) [Mass ratio] 132 mg/g CRE 0-200 [facility] Basophil percentageOrdered B y: Kyara Odonnell on 07-25-2023 Cholesterol [Mass/Vol] 200 mg/dL <200 [facility] Comment on above: <200 mg/dL Desirable 200-240 mg/dL Borderline >240 mg/dL High Risk Triglyceride [Mass/Vol] 357 mg/dL <199 [facility] Comment on above: The drugs N-Acetylcy steine and Metamizole may falsely depress this assay.Serum Triglycerides Reference Interval Normal <150 mg/dL Borderline high 150 - 199 mg/dL High 200 - 499 mg/dL Very High > or = 500 mg/dL Laboratory - Chemistry and C hemistry - challengeOrdered By: Kyara Odonnell on 07-25-2023 ALT [Catalytic activity/Vol] 24 U/L 13-56 [facility] Serum or plasma cholesterol in HDL measurement (mass/volume)Ordered By: Kyara Odonnell on 07-25-2023 Cholesterol in HDL [Mass/Vol] 41 mg/dL >40 [facility] Comment on above: The drugs N-Acetylcy steine and Metamizole may falsely depress this assay. Reference Range HDL <40 mg/dL Low HDL Cholesterol HDL >or= 60 mg/dL High HDL Cholesterol Serum or plasma cholesterol in VLDL measurement (mass/volume)Ordered By: Kyara Odonnell on 07-25-2023 Cholesterol in VLDL [Mass/Vol] 71 mg/dL 5-40 [facility] Serum or plasma low density lipoprotein (LDL) cholesterol measurement (mass/volume)Ordered By: Kyara Odonnell on 07-25-2023 Cholesterol in LDL [Mass/Vol] 88 mg/dL 0-130 [facility] Thin prep Papanicolaou smear with manual screeningOrdered By: Kyara Odonnell on 07-25-2023 Thin prep Papanicolaou smear with manual screening 22 U/L 15-37 [facility] Absolute lymphocyte countOrd ered By: Virgil Bazzi on 03-21-2023 Lymphocytes Auto (Unsp spec) [#/Vol] 2.75 10*3/uL 0.83-4.51 [facility] Basophil percentageOrdered B y: Virgil Bazzi on 03-21-2023 Basophil percentage 0 SEEN /hpf 0-5 [facility] Basophils/100 WBC (Bld) 0.9 % 0-1 [facility] Chloride [Moles/Vol] 106 mmol/L 98-107 [facility] Eosinophils/100 WBC (Bld) 2.9 % 0-5 [facility] Glucose [Mass/Vol] 113 mg/dL 74-106 [facility] Comment on above: Fasting Glucose resu lt from 100 to 125 mg/dL suggests IMPAIRED HOMEOSTASIS per A.D.A. criteria. Neutrophils (Bld) [#/Vol] 3.2 10*3/uL 2.0-7.7 [facility] Neutrophils/100 WBC (Bld) 46.7 % 47-70 [facility] Potassium [Moles/Vol] 3.4 mmol/L 3.5-5.1 [facility] Sodium [Moles/Vol] 138 mmol/L 136-145 [facility] WBC (Bld) [#/Vol] 6.9 10*3/uL 4.4-11.0 [facility] Bilirubin Test strip Ql (U)O rdered By: Virgil Bazzi on 03-21-2023 Bilirubin Ql (U) Negative Negative [facility] Blood erythrocytes count (nu mber/volume)Ordered By: Virgil Bazzi on 03-21-2023 RBC (Bld) [#/Vol] 4.84 10*6/uL 4.2-5.4 [facility] Blood hemoglobin measurement (mass/volume)Ordered By: Virgil Bazzi on 03-21-2023 Hemoglobin (Bld) [Mass/Vol] 15.0 g/dL 12.0-15.0 [facility] Blood lymphocytes/100 leukoc ytesOrdered By: Virgil Bazzi on 03-21-2023 Lymphocytes/100 WBC (Bld) 39.9 % 19-41 [facility] Blood monocytes/100 leukocyt esOrdered By: Virgil Bazzi on 03-21-2023 Monocytes/100 WBC (Bld) 9.3 % 0-10 [facility] Blood platelet mean volumeOr dered By: Virgil Bazzi on 03-21-2023 Platelet mean volume (Bld) [Entitic vol] 9.4 fL 6.2-12.0 [facility] Determination of erythrocyte mean corpuscular volume (MCV)Ordered By: Virgil Bazzi on 03-21-2023 MCV (RBC) [Entitic vol] 95.7 fL 81-99 [facility] Hematocrit Auto (Bld) [Volum e fraction]Ordered By: Virgil Bazzi on 03-21-2023 Hematocrit (Bld) [Volume fraction] 46.3 % 37-47 [facility] Ketones Test strip Ql (U)Ord ered By: Virgil Bazzi on 03-21-2023 Ketones Ql (U) Negative Negative [facility] Laboratory - Chemistry and C hemistry - challengeOrdered By: Virgil Bazzi on 03-21-2023 CO2 [Moles/Vol] 27.0 mmol/L 21.0-32.0 [facility] Magnesium [Mass/Vol] 2.7 mg/dL 1.6-2.6 [facility] Urea nitrogen/Creatinine [Mass ratio] 24.9 mg/mg 10-20 [facility] Laboratory - Hematology and Cell countsOrdered By: Virgil Bazzi on 03-21-2023 Erythrocyte distribution width (RBC) [Entitic vol] 44.7 fL 35.1-43.9 [facility] Erythrocyte distribution width (RBC) [Ratio] 12.7 % 11.6-14.6 [facility] Immature granulocytes/100 WBC (Bld) 0.300 % 0.0-0.9 [facility] Comment on above: IG% - Immature Granu locytes (promyelocytes, myelocytes and metamyelocytes) > 1% indicates that a LEFT SHIFT is Present. MCH (RBC) [Entitic mass] 31.0 pg 27.0-32.0 [facility] Nucleated RBC/100 WBC (Bld) [Ratio] 0 % 0-5 [facility] MCHC Auto (RBC) [Mass/Vol]Or dered By: Virgil Bazzi on 03-21-2023 MCHC (RBC) [Mass/Vol] 32.4 g/dL 32-36 [facility] Mucus LM Ql (Urine sed)Order ed By: Virgil Bazzi on 03-21-2023 Mucus Ql (Urine sed) 0 SEEN /hpf [facility] Nitrite Test strip Ql (U)Ord ered By: Virgil Bazzi on 03-21-2023 Nitrite Ql (U) Negative Negative [facility] No Panel InformationOrdered By: Virgil Bazzi on 03-21-2023 Troponin I High Sensitivity 6 pg/mL 3.0-54.0 [facility] Comment on above: Please Note: [place] t Units and Gender Specific Reference Ranges. For more information see Policy Stat Procedure [place] High Sensitivity Troponin (TNIH) and attachments. Estimated Creatinine Clearance Calc 41.25 ml/min [facility] Estimated GFR (MDRD) Amer 72 mL/min >60 [facility] Comment on above: GFR Calc Estimated GFR (MDRD) Non-Af Amer 59 mL/min >60 [facility] Comment on above: Non- GFR Calc Platelets bldOrdered By: Alcon Bazzi on 03-21-2023 Platelets (Bld) [#/Vol] 288 10*3/uL 150-450 [facility] Protein Test strip Ql (U)Ord ered By: Virgil Bazzi on 03-21-2023 Protein Ql (U) Negative Negative [facility] Serum or plasma calcium tyron urement (mass/volume)Ordered By: Virgil Bazzi on 03-21-2023 Calcium [Mass/Vol] 9.6 mg/dL 8.5-10.1 [facility] Serum or plasma creatinine m easurement (mass/volume)Ordered By: Virgil Bazzi on 03-21-2023 Creatinine [Mass/Vol] 0.96 mg/dL 0.55-1.02 [facility] Comment on above: The validity of the calculated GFR & GFRAA in patients over 70 years has not been determined. Clinical correlation is essential. Serum or plasma urea nitroge n measurement (mass/volume)Ordered By: Virgil Bazzi on 03-21-2023 Urea nitrogen [Mass/Vol] 24 mg/dL 7-18 [facility] Squamous epithelial cells de tection in urine sediment by light microscopyOrdered By: Virgil Bazzi on 03-21-2023 Epithelial cells.squamous LM Ql (Urine sed) 0 SEEN /hpf 5-10 [facility] Thin prep Papanicolaou smear with manual screeningOrdered By: Virgil Bazzi on 03-21-2023 Thin prep Papanicolaou smear with manual screening 5 5-15 [facility] Urine blood detectionOrdered By: Virgil Bazzi on 03-21-2023 RBC Ql (U) Negative Negative [facility] RBC Ql (U) 0 SEEN /hpf 0-5 [facility] Urine clarityOrdered By: Alcon Bazzi on 03-21-2023 Clarity (U) Clear Clear [facility] Urine color determinationOrd ered By: Virgil Bazzi on 03-21-2023 Color (U) Yellow Yellow [facility] Urine glucose detectionOrder ed By: Virgil Bazzi on 03-21-2023 Glucose Ql (U) Normal mg/dl Normal [facility] Urine leukocyte esterase det ection by dipstickOrdered By: Virgil Bazzi on 03-21-2023 Leukocyte esterase Test strip Ql (U) Negative Negative [facility] Urine pHOrdered By: Virgil baltazar on 03-21-2023 pH (U) 6.5 [pH] 5.0 - 8.0 [facility] Urine sediment bacteria coun t by microscopy (number/high power field)Ordered By: Virgil Bazzi on 03-21-2023 Bacteria LM.HPF (Urine sed) [#/Area] 0 /[HPF] None Seen [facility] Urine specific gravity measu rementOrdered By: Virgil Bazzi on 03-21-2023 Specific gravity (U) [Rel density] 1.010 1.002-1.030 [facility] Urobilinogen Auto test strip Ql (U)Ordered By: Virgil Bazzi on 03-21-2023 Urobilinogen Ql (U) Normal mg/dl Normal [facility] Basophil percentageOrdered B y: Debra Goodman on 03-13-2023 Chloride [Moles/Vol] 107 mmol/L 98-107 [facility] Glucose [Mass/Vol] 92 mg/dL 74-106 [facility] Potassium [Moles/Vol] 3.8 mmol/L 3.5-5.1 [facility] Sodium [Moles/Vol] 138 mmol/L 136-145 [facility] WBC (Bld) [#/Vol] 7.5 10*3/uL 4.4-11.0 [facility] Blood erythrocytes count (nu mber/volume)Ordered By: Debra Goodman on 03-13-2023 RBC (Bld) [#/Vol] 4.28 10*6/uL 4.2-5.4 [facility] Blood hemoglobin measurement (mass/volume)Ordered By: Debra Goodman on 03-13-2023 Hemoglobin (Bld) [Mass/Vol] 13.3 g/dL 12.0-15.0 [facility] Blood platelet mean volumeOr dered By: Debra Goodman on 03-13-2023 Platelet mean volume (Bld) [Entitic vol] 9.3 fL 6.2-12.0 [facility] Determination of erythrocyte mean corpuscular volume (MCV)Ordered By: Debra Goodman on 03-13-2023 MCV (RBC) [Entitic vol] 93.9 fL 81-99 [facility] Hematocrit Auto (Bld) [Volum e fraction]Ordered By: Debra Goodman on 03-13-2023 Hematocrit (Bld) [Volume fraction] 40.2 % 37-47 [facility] Laboratory - Chemistry and C hemistry - challengeOrdered By: Debra Goodman on 03-13-2023 CO2 [Moles/Vol] 26.0 mmol/L 21.0-32.0 [facility] Urea nitrogen/Creatinine [Mass ratio] 23.3 mg/mg 10-20 [facility] Laboratory - Hematology and Cell countsOrdered By: Debra Goodman on 03-13-2023 Erythrocyte distribution width (RBC) [Entitic vol] 43.8 fL 35.1-43.9 [facility] Erythrocyte distribution width (RBC) [Ratio] 12.7 % 11.6-14.6 [facility] MCH (RBC) [Entitic mass] 31.1 pg 27.0-32.0 [facility] MCHC Auto (RBC) [Mass/Vol]Or dered By: Debra Goodman on 03-13-2023 MCHC (RBC) [Mass/Vol] 33.1 g/dL 32-36 [facility] No Panel InformationOrdered By: Debra Goodman on 03-13-2023 Estimated GFR (MDRD) Amer 77 mL/min >60 [facility] Comment on above: GFR Calc Estimated GFR (MDRD) Non-Af Amer 64 mL/min >60 [facility] Comment on above: Non- GFR Calc Thyroid Stimulating Hormone (TSH) 2.85 uIU/mL 0.358-3.74 [facility] Platelets bldOrdered By: Donato Goodman on 03-13-2023 Platelets (Bld) [#/Vol] 252 10*3/uL 150-450 [facility] Serum or plasma calcium tyron urement (mass/volume)Ordered By: Debra Goodman on 03-13-2023 Calcium [Mass/Vol] 8.6 mg/dL 8.5-10.1 [facility] Serum or plasma creatinine m easurement (mass/volume)Ordered By: Debra Goodman on 03-13-2023 Creatinine [Mass/Vol] 0.90 mg/dL 0.55-1.02 [facility] Comment on above: The validity of the calculated GFR & GFRAA in patients over 70 years has not been determined. Clinical correlation is essential. Serum or plasma urea nitroge n measurement (mass/volume)Ordered By: Debra Goodman on 03-13-2023 Urea nitrogen [Mass/Vol] 21 mg/dL 7-18 [facility] Thin prep Papanicolaou smear with manual screeningOrdered By: Debra Goodman on 03-13-2023 Thin prep Papanicolaou smear with manual screening 5 5-15 [facility] Absolute lymphocyte countOrd ered By: Dr. Clement on 12-19-2022 Lymphocytes Auto (Unsp spec) [#/Vol] 2.48 10*3/uL 0.83-4.51 [facility] Basophil percentageOrdered B y: Dr. Clement on 12-19-2022 Basophils/100 WBC (Bld) 0.4 % 0-1 [facility] Chloride [Moles/Vol] 106 mmol/L 98-107 [facility] Eosinophils/100 WBC (Bld) 0.8 % 0-5 [facility] Glucose [Mass/Vol] 99 mg/dL 74-106 [facility] Neutrophils (Bld) [#/Vol] 8.4 10*3/uL 2.0-7.7 [facility] Neutrophils/100 WBC (Bld) 68.2 % 47-70 [facility] Potassium [Moles/Vol] 3.6 mmol/L 3.5-5.1 [facility] Sodium [Moles/Vol] 140 mmol/L 136-145 [facility] WBC (Bld) [#/Vol] 12.4 10*3/uL 4.4-11.0 [facility] Blood erythrocytes count (nu mber/volume)Ordered By: Dr. Clement on 12-19-2022 RBC (Bld) [#/Vol] 4.36 10*6/uL 4.2-5.4 [facility] Blood hemoglobin measurement (mass/volume)Ordered By: Dr. Clement on 12-19-2022 Hemoglobin (Bld) [Mass/Vol] 13.3 g/dL 12.0-15.0 [facility] Blood lymphocytes/100 leukoc ytesOrdered By: Dr. Clement on 12-19-2022 Lymphocytes/100 WBC (Bld) 20.0 % 19-41 [facility] Blood monocytes/100 leukocyt esOrdered By: Dr. Clement on 12-19-2022 Monocytes/100 WBC (Bld) 8.7 % 0-10 [facility] Blood platelet mean volumeOr dered By: Dr. Clement on 12-19-2022 Platelet mean volume (Bld) [Entitic vol] 9.3 fL 6.2-12.0 [facility] Determination of erythrocyte mean corpuscular volume (MCV)Ordered By: Dr. Clement on 12-19-2022 MCV (RBC) [Entitic vol] 94.5 fL 81-99 [facility] Hematocrit Auto (Bld) [Volum e fraction]Ordered By: Dr. Clement on 12-19-2022 Hematocrit (Bld) [Volume fraction] 41.2 % 37-47 [facility] Laboratory - Chemistry and C hemistry - challengeOrdered By: Dr. Clement on 12-19-2022 CO2 [Moles/Vol] 28.0 mmol/L 21.0-32.0 [facility] Urea nitrogen/Creatinine [Mass ratio] 18.8 mg/mg 10-20 [facility] Laboratory - Hematology and Cell countsOrdered By: Dr. Clement on 12-19-2022 Erythrocyte distribution width (RBC) [Entitic vol] 48.2 fL 35.1-43.9 [facility] Erythrocyte distribution width (RBC) [Ratio] 13.9 % 11.6-14.6 [facility] Immature granulocytes/100 WBC (Bld) 1.900 % 0.0-0.9 [facility] Comment on above: IG% - Immature Granu locytes (promyelocytes, myelocytes and metamyelocytes) > 1% indicates that a LEFT SHIFT is Present. MCH (RBC) [Entitic mass] 30.5 pg 27.0-32.0 [facility] Nucleated RBC/100 WBC (Bld) [Ratio] 0 % 0-5 [facility] MCHC Auto (RBC) [Mass/Vol]Or dered By: Dr. Clement on 12-19-2022 MCHC (RBC) [Mass/Vol] 32.3 g/dL 32-36 [facility] No Panel InformationOrdered By: Dr. Clement on 12-19-2022 Estimated GFR (MDRD) Amer 68 mL/min >60 [facility] Comment on above: GFR Calc Estimated GFR (MDRD) Non-Af Amer 56 mL/min >60 [facility] Comment on above: Non- GFR Calc Platelets bldOrdered By: Dr. Clement on 12-19-2022 Platelets (Bld) [#/Vol] 349 10*3/uL 150-450 [facility] Serum or plasma calcium tyron urement (mass/volume)Ordered By: Dr. Clement on 12-19-2022 Calcium [Mass/Vol] 9.2 mg/dL 8.5-10.1 [facility] Serum or plasma creatinine m easurement (mass/volume)Ordered By: Dr. Clement on 12-19-2022 Creatinine [Mass/Vol] 1.01 mg/dL 0.55-1.02 [facility] Comment on above: The validity of the calculated GFR & GFRAA in patients over 70 years has not been determined. Clinical correlation is essential. Serum or plasma urea nitroge n measurement (mass/volume)Ordered By: Dr. Clement on 12-19-2022 Urea nitrogen [Mass/Vol] 19 mg/dL 7-18 [facility] Thin prep Papanicolaou smear with manual screeningOrdered By: Dr. Clement on 12-19-2022 Thin prep Papanicolaou smear with manual screening 6 5-15 [facility] Basophil percentageOrdered B y: Virgil Bazzi on 12-15-2022 Chloride [Moles/Vol] 107 mmol/L 98-107 [facility] Glucose [Mass/Vol] 100 mg/dL 74-106 [facility] Comment on above: Fasting Glucose resu lt from 100 to 125 mg/dL suggests IMPAIRED HOMEOSTASIS per A.D.A. criteria. Potassium [Moles/Vol] 3.8 mmol/L 3.5-5.1 [facility] Sodium [Moles/Vol] 140 mmol/L 136-145 [facility] Laboratory - Chemistry and C hemistry - challengeOrdered By: Virgil Bazzi on 12-15-2022 CO2 [Moles/Vol] 26.0 mmol/L 21.0-32.0 [facility] Urea nitrogen/Creatinine [Mass ratio] 26.4 mg/mg 10-20 [facility] No Panel InformationOrdered By: Virgil Bazzi on 12-15-2022 Estimated Creatinine Clearance Calc 36.25 ml/min [facility] Estimated GFR (MDRD) Amer 62 mL/min >60 [facility] Comment on above: GFR Calc Estimated GFR (MDRD) Non-Af Amer 51 mL/min >60 [facility] Comment on above: Non- GFR Calc Serum or plasma calcium tyron urement (mass/volume)Ordered By: Virgil Bazzi on 12-15-2022 Calcium [Mass/Vol] 8.8 mg/dL 8.5-10.1 [facility] Serum or plasma creatinine m easurement (mass/volume)Ordered By: Virgil Bazzi on 12-15-2022 Creatinine [Mass/Vol] 1.10 mg/dL 0.55-1.02 [facility] Comment on above: The validity of the calculated GFR & GFRAA in patients over 70 years has not been determined. Clinical correlation is essential. Serum or plasma urea nitroge n measurement (mass/volume)Ordered By: Virgil Bazzi on 12-15-2022 Urea nitrogen [Mass/Vol] 29 mg/dL -18 [facility] Thin prep Papanicolaou smear with manual screeningOrdered By: Virgil Bazzi on 12-15-2022 Thin prep Papanicolaou smear with manual screening 7 5-15 [facility] Basophil percentageOrdered B y: Dr. Wiggins on 12-10-2022 Bilirubin [Mass/Vol] 1.10 mg/dL 0.20-1.00 [facility] Comment on above: For patients on eltr ombopag therapy, use of Dimension [place] TBIL is not recommended. Chloride [Moles/Vol] 109 mmol/L 98-107 [facility] Glucose [Mass/Vol] 118 mg/dL 74-106 [facility] Comment on above: Fasting Glucose resu lt from 100 to 125 mg/dL suggests IMPAIRED HOMEOSTASIS per A.D.A. criteria. Potassium [Moles/Vol] 3.3 mmol/L 3.5-5.1 [facility] Protein [Mass/Vol] 6.4 g/dL 6.4-8.2 [facility] Sodium [Moles/Vol] 141 mmol/L 136-145 [facility] WBC (Bld) [#/Vol] 10.3 10*3/uL 4.4-11.0 [facility] Basophil percentageOrdered B y: Dr. Dalton on 12-10-2022 Cholesterol [Mass/Vol] 195 mg/dL <200 [facility] Comment on above: <200 mg/dL Desirable 200-240 mg/dL Borderline >240 mg/dL High Risk Triglyceride [Mass/Vol] 215 mg/dL <199 [facility] Comment on above: The drugs N-Acetylcy steine and Metamizole may falsely depress this assay.Serum Triglycerides Reference Interval Normal <150 mg/dL Borderline high 150 - 199 mg/dL High 200 - 499 mg/dL Very High > or = 500 mg/dL Blood erythrocytes count (nu mber/volume)Ordered By: Dr. Wiggins on 12-10-2022 RBC (Bld) [#/Vol] 3.99 10*6/uL 4.2-5.4 [facility] Blood hemoglobin measurement (mass/volume)Ordered By: Dr. Wiggins on 12-10-2022 Hemoglobin (Bld) [Mass/Vol] 12.2 g/dL 12.0-15.0 [facility] Blood platelet mean volumeOr dered By: Dr. Wiggins on 12-10-2022 Platelet mean volume (Bld) [Entitic vol] 9.7 fL 6.2-12.0 [facility] Determination of erythrocyte mean corpuscular volume (MCV)Ordered By: Dr. Wiggins on 12-10-2022 MCV (RBC) [Entitic vol] 93.7 fL 81-99 [facility] Hematocrit Auto (Bld) [Volum e fraction]Ordered By: Dr. Wiggins on 12-10-2022 Hematocrit (Bld) [Volume fraction] 37.4 % 37-47 [facility] Laboratory - Chemistry and C hemistry - challengeOrdered By: Dr. Wiggins on 12-10-2022 ALP [Catalytic activity/Vol] 61 U/L 45-117 [facility] ALT [Catalytic activity/Vol] 21 U/L 13-56 [facility] CO2 [Moles/Vol] 24.0 mmol/L 21.0-32.0 [facility] Globulin (S) [Mass/Vol] 3.0 g/dL 2.2-4.2 [facility] Urea nitrogen/Creatinine [Mass ratio] 14.6 mg/mg 10-20 [facility] Laboratory - Hematology and Cell countsOrdered By: Dr. Wiggins on 12-10-2022 Erythrocyte distribution width (RBC) [Entitic vol] 45.3 fL 35.1-43.9 [facility] Erythrocyte distribution width (RBC) [Ratio] 13.2 % 11.6-14.6 [facility] MCH (RBC) [Entitic mass] 30.6 pg 27.0-32.0 [facility] MCHC Auto (RBC) [Mass/Vol]Or dered By: Dr. Wiggins on 12-10-2022 MCHC (RBC) [Mass/Vol] 32.6 g/dL 32-36 [facility] No Panel InformationOrdered By: Dr. Wiggins on 12-10-2022 Estimated Creatinine Clearance Calc 36.31 ml/min [facility] Estimated GFR (MDRD) Amer 66 mL/min >60 [facility] Comment on above: GFR Calc Estimated GFR (MDRD) Non-Af Amer 55 mL/min >60 [facility] Comment on above: Non- GFR Calc Platelets bldOrdered By: Dr. Wiggins on 12-10-2022 Platelets (Bld) [#/Vol] 251 10*3/uL 150-450 [facility] Serum or plasma albumin tyron urement (mass/volume)Ordered By: Dr. Wiggins on 12-10-2022 Albumin [Mass/Vol] 3.4 g/dL 3.2-5.0 [facility] Serum or plasma albumin/glob ulin mass ratioOrdered By: Dr. Wiggins on 12-10-2022 Albumin/Globulin [Mass ratio] 1.1 {ratio} 0.9-2.4 [facility] Serum or plasma calcium tyron urement (mass/volume)Ordered By: Dr. Wiggins on 12-10-2022 Calcium [Mass/Vol] 8.4 mg/dL 8.5-10.1 [facility] Serum or plasma cholesterol in HDL measurement (mass/volume)Ordered By: Dr. Dalton on 12-10-2022 Cholesterol in HDL [Mass/Vol] 43 mg/dL >40 [facility] Comment on above: The drugs N-Acetylcy steine and Metamizole may falsely depress this assay. Reference Range HDL <40 mg/dL Low HDL Cholesterol HDL >or= 60 mg/dL High HDL Cholesterol Serum or plasma cholesterol in VLDL measurement (mass/volume)Ordered By: Dr. Dalton on 12-10-2022 Cholesterol in VLDL [Mass/Vol] 43 mg/dL 5-40 [facility] Serum or plasma creatinine m easurement (mass/volume)Ordered By: Dr. Wiggins on 12-10-2022 Creatinine [Mass/Vol] 1.03 mg/dL 0.55-1.02 [facility] Comment on above: The validity of the calculated GFR & GFRAA in patients over 70 years has not been determined. Clinical correlation is essential. Serum or plasma low density lipoprotein (LDL) cholesterol measurement (mass/volume)Ordered By: Dr. Dalton on 12-10-2022 Cholesterol in LDL [Mass/Vol] 109 mg/dL 0-130 [facility] Serum or plasma urea nitroge n measurement (mass/volume)Ordered By: Dr. Wiggins on 12-10-2022 Urea nitrogen [Mass/Vol] 15 mg/dL 7-18 [facility] Thin prep Papanicolaou smear with manual screeningOrdered By: Dr. Wiggins on 12-10-2022 Thin prep Papanicolaou smear with manual screening 24 U/L 15-37 [facility] Thin prep Papanicolaou smear with manual screening 8 5-15 [facility] Absolute lymphocyte countOrd ered By: Dr. Cabrera on 12-09-2022 Lymphocytes Auto (Unsp spec) [#/Vol] 1.60 10*3/uL 0.83-4.51 [facility] Basophil percentageOrdered B y: Dr. Cabrera on 12-09-2022 Basophils/100 WBC (Bld) 0.1 % 0-1 [facility] Eosinophils/100 WBC (Bld) 0.0 % 0-5 [facility] Neutrophils (Bld) [#/Vol] 5.3 10*3/uL 2.0-7.7 [facility] Neutrophils/100 WBC (Bld) 69.8 % 47-70 [facility] Blood lymphocytes/100 leukoc ytesOrdered By: Dr. Cabrera on 12-09-2022 Lymphocytes/100 WBC (Bld) 21.2 % 19-41 [facility] Blood monocytes/100 leukocyt esOrdered By: Dr. Cabrera on 12-09-2022 Monocytes/100 WBC (Bld) 8.5 % 0-10 [facility] Laboratory - Hematology and Cell countsOrdered By: Dr. Cabrera on 12-09-2022 Immature granulocytes/100 WBC (Bld) 0.400 % 0.0-0.9 [facility] Comment on above: IG% - Immature Granu locytes (promyelocytes, myelocytes and metamyelocytes) > 1% indicates that a LEFT SHIFT is Present. Nucleated RBC/100 WBC (Bld) [Ratio] 0 % 0-5 [facility] No Panel InformationOrdered By: Dr. Cabrera on 12-09-2022 Troponin I High Sensitivity 242 pg/mL 3.0-54.0 [facility] Comment on above: Critical Result(s) C alled at: 01:59:28 12/09/2022 by: NADIA Miller RN PCU. Results read back by same. Please Note: New Test Units and Gender Specific Reference Ranges. For more information see Policy Stat Procedure [place] High Sensitivity Troponin (TNIH) and attachments. Absolute lymphocyte counton 12-08-2022 Lymphocytes Auto (Unsp spec) [#/Vol] 1.77 10*3/uL 0.83-4.51 [facility] Work Phone: Basophil percentageon 2022 Basophils/100 WBC (Bld) 0.3 % 0-1 [facility] Work Phone: Chloride [Moles/Vol] 107 [facility]L 98-[facility] Work [facility]: Eosinophils/100 WBC (Bld) 0.3 % 0-5 [facility] Work Phone: Glucose [Mass/Vol] 190 mg/dL 74-106 [facility] Work Phone: Comment on above: Fasting Glucose resu lt greater than or equal to 126 mg/dL suggests DIABETES MELLITUS per A.D.A. criteria. Neutrophils (Bld) [#/Vol] 6.5 10*3/uL 2.0-7.7 [facility] Work Phone: Neutrophils/100 WBC (Bld) 75.8 % 47-70 [facility] Work Phone: Potassium [Moles/Vol] 3.3 mmol/L 3.5-5.1 [facility] Work Phone: Comment on above: Slight Hemolysis, Re sult may be falsely increased. Sodium [Moles/Vol] 141 mmol/L 136-145 [facility] Work Phone: WBC (Bld) [#/Vol] 8.6 10*3/uL 4.4-11.0 [facility] Work Phone: Blood erythrocytes count (nu mber/volume)on 12-08-2022 RBC (Bld) [#/Vol] 4.45 10*6/uL 4.2-5.4 [facility] Work Phone: Blood hemoglobin measurement (mass/volume)on 12-08-2022 Hemoglobin (Bld) [Mass/Vol] 14.2 g/dL 12.0-15.0 [facility] Work Phone: Blood lymphocytes/100 leukoc yteson 12-08-2022 Lymphocytes/100 WBC (Bld) 20.6 % 19-41 [facility] Work Phone: Blood monocytes/100 leukocyt eson 12-08-2022 Monocytes/100 WBC (Bld) 2.8 % 0-10 [facility] Work Phone: Blood platelet mean volumeon 12-08-2022 Platelet mean volume (Bld) [Entitic vol] 9.8 fL 6.2-12.0 [facility] Work Phone: Determination of erythrocyte mean corpuscular volume (MCV)on 12-08-2022 MCV (RBC) [Entitic vol] 93.0 fL 81-99 [facility] Work Phone: Hematocrit Auto (Bld) [Volum e fraction]on 12-08-2022 Hematocrit (Bld) [Volume fraction] 41.4 % 37-47 [facility] Work Phone: Laboratory - Chemistry and C hemistry - challengeon 12-08-2022 CO2 [Moles/Vol] 25.0 mmol/L 21.0-32.0 [facility] Work Phone: Urea nitrogen/Creatinine [Mass ratio] 14.9 mg/mg 10-20 [facility] Work Phone: Laboratory - CoagulationOrde red By: Dr. Walters on 12-08-2022 aPTT Coag (Bld) [Time] 29.1 s 24.1-36.2 [facility] Laboratory - Hematology and Cell countson 12-08-2022 Erythrocyte distribution width (RBC) [Entitic vol] 44.5 fL 35.1-43.9 [facility] Work Phone: Erythrocyte distribution width (RBC) [Ratio] 13.1 % 11.6-14.6 [facility] Work Phone: Immature granulocytes/100 WBC (Bld) 0.200 % 0.0-0.9 [facility] Work Phone: Comment on above: IG% - Immature Granu locytes (promyelocytes, myelocytes and metamyelocytes) > 1% indicates that a LEFT SHIFT is Present. MCH (RBC) [Entitic mass] 31.9 pg 27.0-32.0 [facility] Work Phone: Nucleated RBC/100 WBC (Bld) [Ratio] 0 % 0-5 [facility] Work Phone: MCHC Auto (RBC) [Mass/Vol]on 12-08-2022 MCHC (RBC) [Mass/Vol] 34.3 g/dL 32-36 [facility] Work Phone: No Panel Informationon 12-08 Troponin I High Sensitivity 218 pg/mL 3.0-54.0 [facility] Work Phone: Comment on above: Critical Result(s) C alled at: 22:30:52 12/08/2022 by: Yolanda marc TO FARTUN. Results read back by same. Please Note: New Test Units and Gender Specific Reference Ranges. For more information see Policy Stat Procedure [place] High Sensitivity Troponin (TNIH) and attachments. Estimated Creatinine Clearance Calc 28.29 ml/min [facility] Work Phone: Estimated GFR (MDRD) Amer 49 mL/min >60 [facility] Work Phone: Comment on above: GFR Calc Estimated GFR (MDRD) Non-Af Amer 40 mL/min >60 [facility] Work Phone: Comment on above: Non- GFR Calc Platelets bldon 12-08-2022 Platelets (Bld) [#/Vol] 289 10*3/uL 150-450 [facility] Work Phone: Serum or plasma calcium tyron urement (mass/volume)on 12-08-2022 Calcium [Mass/Vol] 8.6 mg/dL 8.5-10.1 [facility] Work Phone: Serum or plasma creatinine m easurement (mass/volume)on 12-08-2022 Creatinine [Mass/Vol] 1.34 mg/dL 0.55-1.02 [facility] Work Phone: Comment on above: The validity of the calculated GFR & GFRAA in patients over 70 years has not been determined. Clinical correlation is essential. Serum or plasma urea nitroge n measurement (mass/volume)on 12-08-2022 Urea nitrogen [Mass/Vol] 20 mg/dL 7-18 [facility] Work Phone: Thin prep Papanicolaou smear with manual screeningon 12-08-2022 Thin prep Papanicolaou smear with manual screening 9 5-15 [facility] Work Phone: CNOVon 01-24-2018 CNOV Office Visit ([place]) Anup LOVE ([id number]) 1940 FDate Time Provider Department01/24/18 10:40 AM AUBREE MCNEAL During your visit today, we recorded the following information about you: Pulse Blood pressure 83/minute 151/83Aubree Mcneal MD 01/24/2018 12:54 PM SignedOTONEUROLOGY CONSULTATIONReferral source: (Maxx Wright, PT)Chief Complaint:ImbalanceDizzi ness: FloatingNeck: Pain#################### ######################## ######################## ######################## ######################## ################Impressi ons: Issues of vague dizziness / imbalance and neck discomfort afterher last episode of prolonged vertigo in July 2016 in a patient whoexperience similar symptoms ever five years starting 25 years ago. 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 This maybe the consequence of a peripheral vestibular disorder and arthritis. This mayunderlie issues of cervicalgia. I am able to provoke a component of patient'sdizziness / imbalance with neck vibration. Cervical spine issues may becomplicated by occipital nerve irritation on the left. Gait is unsteady andlikely related to the vestibular syndromeRecommendations/ Plan:Medications: medrol dosepak in an attempt to break current symptom cycle. Risksand benefits of the medications were discussed with the patient.Neck physical therapy: hold on further PT. Continue home exercisesFurther testing: none at this timeMedications:Consider a medication such as gabapentinFollow-up: PRN. Patient to call in one week to report status.################# ######################## ######################## ######################## ######################## ######################## ######################## ######################## #############History:25 yrs agoDizziness (spinning) / nausea, vomiting, diarrhea / imbalanceHospitalized x 3 days. ANDquot;vertigoANDquot;. Was given IV meds.Since this time, every 5 yrs would experience an episode of the above dizziness.Would be hospitalized for about 3 days and would be back to normal in about 3weeks.Would be fine when laying down. No headache. No photo / phono?07/2016 - another episode of vertigo. Was in the hospital x 3 days. Residualsymptoms since.On/off spinning until 01/13 - better w/ PT. Some improvement with PT though withongoing issuesNow:ImbalanceConst ant w/ fluctuation (ave - moderate); some days she feels very goodSome improvement with PTWorse with fatigue, stress, TOD (better in the am when she gets up)Dizziness: FloatingOn/offW/ head movement - throughout the day##################### ######################## ###################### Dizziness## Inc Dec N/C Visual motion sens.## IIB x# Fluor:# Roll x# Flash:# Look Up x# TV: x# Look Down x# Car: x# OOB x Pass:# Carbonizer Tester:# Bending Store: +-# Upon Up###################### ######################## ####################Vest ibular: Dizziness: (see hpi) Imbalance: see hpi Veering: +- to the left Falls: No; noHearing: goodTinnitus: noneMusculosketal Ear: Pain (sharp or dull ache) - Left - on/off, since 08/12 - no sigchange, infrequent, briefNo clear correlation with the imbalance Neck: reduction in ROM with left lateral rotation / left paracervical(sharp) - on/off, mainly with movement.Has become more aware of this since starting PTHeadaches:Old issueNo recent changeNow:BitemporalShar p / dullNo throbbingNo n/v/p/p?durationANDquot; not very oftenANDquot; Visual Features: Visual distortion - like she's looking through akaleidoscope - no ensuing headache.Started years ago.10-15 min2 episodes last (am / pm) - none for months prior (none in a 1 yrprior to this) Aggravators: Fatigue and Stress Alleviators: Rest, Sleep and OTC Meds Associated Vestibular Symptoms: None#################### ######################## ######################Re view of Systems:General: Energy: ANDquot;highANDquot; Sleep: good / better over the past monthWeakness: normalSensory: normalGI - Bowel dysfunction: normalGU - Bladder dysfunction: normalVisual dysfunction: normalSwallow problems: normalCardiac: Chest pain: noOrthstatic Intolerance: LOC - no Palp - nonePulmonary: Dyspnea on Exertion: noneSkin: Rashes: NonePsychiatry: Anxiety / Depression:Intermittent anxiety - ongoing issueHas tried ativan in the past w/ benefit################# ######################## ######################## #The diagnostic work-up for this problem thus far has included: Consultation Dx Date LocationHosp 08/12PCP [facility]EV[facility] D[facility] (in [place]) - not Meniere'sNeuro In the past during a hospitalizationCardsGI## ######################## ############Testing Result Date LocationHead + Neck CT-A 03/22/17 Normal (per report)MRI YrsAudio Ro n####################### ############Treatment for current illness:Medications:Braydon um - in the hospitalzofranProcedures /Surgery:PT Other Neck/VR - Maxx Wright / Leoncio Ron - w/ benefit. 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 Well nourished. No acute distress.Pain Behaviors: no pain behaviors observedCarotid examination was normal.General cardiac examination was normal.Mental status examination: Alert and Oriented to time, place and person.Language: fluent speech(limited evaluation)Cranial Nerve exam:Ophthalmologic: Visual hutton were normal. Fundoscopic exam was normal.Pupils were symmetric and reactive to light. Eye movements: normal, smooth pursuits, no nystagmus. Symptoms associated w/ eye movements: noneOtological examination: Kong: midline Rinne: normal (ACANDgt;BC) Tympanic membranes: LANDgt;R wax Finger rub: normal Response to 256 Hz tuning fork: normal Recruitment: No hyperacusisFacial Strength: symmetricFacial Sensation: Right Left V1 (scalp) Normal Normal V1 Normal Normal V2 Normal Normal V3 Normal Normal Ear (sup.) Normal Normal Left RightGON tender mild noneParaC2 tender mild to moderate nonePost. Vertex Normal NormalNormal palatal elevation.Tongue midline. Right LeftOral sensation: Ant Tongue - - Post Tongue - - Post PharynxCervical spine examination: Position: neutral Flexion: normal and painless Lateral C1 process tenderness: tender bilaterally - L(sig)ANDgt;R Upper Cervical Rotation: Reduced left Sidebend: Reduced left w/ left paracervical pain Total Cervical Rotation: Reduced left w/ left paracervical pain C1 malrotation: RightNeck Vibration Testing: Right LeftSuboccipital +- + ANDquot;Off balancedANDquot; sensationMasseter - -SCM - -Motor Exam: Tone: Normal with no atrophy or fasciculations Tremor : None Pronator Drift: NoneNormal shoulder shrug.Strength (out of 5): Right LeftHand Intrins 5 55th digit abd 5 5Wrist ext 5 5Shoulder abd. 5 5Hip flex 5 5Knee ext 5 5Ankle Dorsifl 5 5Shoulder Flex 5 5DTR's (out of 4): Right LeftBR 0 0BJ Tr 0TJ 1+ 1+KJ 2+ 2+AJ Tr TrPlantar resp. not tested not testedSensory Exam: Gross UE to PP: normal Gross LE to PP: N/TCoordination examination: Mqyrow-be-yidg testing was normal bilaterally.Jgxo-ju-nvak testing was normal bilaterally.Postural stability: Romberg: normalGait examination: Usual gait: Moderate base. stable Heel walk: unsteady Toe walk: somewhat unsteady Tandem (Forward): unsteady Tandem (Reverse): unsteady################ ######################## ######################## ##Off-balanced sensation - 3-4/10, 1-2 with manual cervical traction################ ######################## ######################## ##The patient was personally seen and examined by myself.Aubree Mcneal MDOtoneurology / NeurologyCenter for Headache and PainNeurological InstituteProvidence HospitalT33cc:Maxx Wright, PT *(Results of consultation to be transmitted via electronic medical record forthose providers who practice within [facility] or with access to [facility] via MD[employer], or via letter)Total time of 55 minutes was spent with the patient regarding the above.Referring Provider: JARETT WRIGHT [[id number]]Allergies As of Date: 01/24/2018 Noted Allergy ReactionPENICILLAMINE 08/22/2005Date Reviewed: 01/24/2018Reviewed by: Aubree Mcneal - Fully AssessedReason for Visit: Dizziness [36]Primary Visit Diagnosis:Peripheral vertigo, unspecified laterality [H81.399] Other Visit Diagnoses: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 VITAMIN E 1,000 UNIT CAPSULE Take 1,000 Units by mouth onc* EVENING PRIMROSE OIL ORAL Take by mouth. VITAMIN B12 ORAL Take by mouth. FISH OIL ORAL Take by mouth. BIOTIN 1 MG TABLET Take 1 tablet by mouth. CALCIUM + D ORAL Take by mouth. GLUCOSAMINE SULFATE 500 MG TA* Take 1 tablet by mouth. TL FOLATE ORAL Take by mouth. METHYLPREDNISOLONE 4 MG TABLE* As instructed per packageProblem List As Of Date: 01/24/2018(None)Prescrip tions ordered this encounter Disp Refills Start End METHYLPREDNISOLONE 4 MG TABLETS IN A* 1 Pa* 0 01/24/2018 01/30/2018 Sig: As instructed per packageEncounter Number: [id number] Status:Closed by AUBREE MCNEAL MD on 01/24/18 [facility] PROGRESSon 01-24-2018 PROGRESS HNO ID: [id number]: Aubree Huntervice: (none)Author Type: PhysicianType: Progress NotesFiled: 01/24/2018 12:54 PMNote Text:OTONEUROLOGY CONSULTATIONReferral source: (Maxx Wright, PT)Chief Complaint:ImbalanceDizzi ness: FloatingNeck: Pain#################### ######################## ######################## ######################## ######################## ################Impressi ons: Issues of vague dizziness / imbalance and neck discomfortafter her last episode of prolonged vertigo in July 2016 in a patientwho experience similar symptoms ever five years starting 25 years ago.Likely overlap between a peripheral vestibular disturbance, abnormal uppercervical spine biomechanics and possible occipital nerve irritation on theleft. 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 Patient manifests an asymmetry of upper cervical spinebiomechanics. This may be the consequence of a peripheral vestibulardisorder and arthritis. This may underlie issues of cervicalgia. I am ableto provoke a component of patient's dizziness / imbalance with neckvibration. Cervical spine issues may be complicated by occipital nerveirritation on the left. Gait is unsteady and likely related to thevestibular syndromeRecommendations/ Plan:Medications: medrol dosepak in an attempt to break current symptom cycle.Risks and benefits of the medications were discussed with the patient.Neck physical therapy: hold on further PT. Continue home exercisesFurther testing: none at this timeMedications:Consider a medication such as gabapentinFollow-up: PRN. Patient to call in one week to report status.################# ######################## ######################## ######################## ######################## ######################## ######################## ######################## #############History:25 yrs agoDizziness (spinning) / nausea, vomiting, diarrhea / imbalanceHospitalized x 3 days. vertigo. Was given IV meds.Since this time, every 5 yrs would experience an episode of the abovedizziness.Would be hospitalized for about 3 days and would be back to normal inabout 3 weeks.Would be fine when laying down. No headache. No photo / phono?07/2016 - another episode of vertigo. Was in the hospital x 3 days.Residual symptoms since.On/off spinning until 01/13 - better w/ PT. Some improvement with PT thoughwith ongoing issuesNow:ImbalanceConst ant w/ fluctuation (ave - moderate); some days she feels very goodSome improvement with PTWorse with fatigue, stress, TOD (better in the am when she gets up)Dizziness: FloatingOn/offW/ head movement - throughout the day##################### ######################## ###################### Dizziness## Inc Dec N/C Visual motion sens.## IIB x# Fluor:# Roll x# Flash:# Look Up x# TV: x# Look Down x# Car: x# OOB x Pass:# Carbonizer Tester:# Bending Store: +-# Upon Up###################### ######################## ####################Vest ibular: Dizziness: (see hpi) Imbalance: see hpi Veering: +- to the left Falls: No; noHearing: goodTinnitus: noneMusculosketal Ear: Pain (sharp or dull ache) - Left - on/off, since 08/12 - no sigchange, infrequent, briefNo clear correlation with the imbalance Neck: reduction in ROM with left lateral rotation / left paracervical(sharp) - on/off, mainly with movement.Has become more aware of this since starting PTHeadaches:Old issueNo recent changeNow:BitemporalShar p / dullNo throbbingNo n/v/p/p?durationnot very often Visual Features: Visual distortion - like she's looking through akaleidoscope - no ensuing headache.Started years ago.10-15 min2 episodes last (am / pm) - none for months prior (none in a 1 yrprior to this) Aggravators: Fatigue and Stress Alleviators: Rest, Sleep and OTC Meds Associated Vestibular Symptoms: None#################### ######################## ######################Re view of Systems:General: Energy: high Sleep: good / better over the past monthWeakness: normalSensory: normalGI - Bowel dysfunction: normalGU - Bladder dysfunction: normalVisual dysfunction: normalSwallow problems: normalCardiac: Chest pain: noOrthstatic Intolerance: LOC - no Palp - nonePulmonary: Dyspnea on Exertion: noneSkin: Rashes: NonePsychiatry: Anxiety / Depression:Intermittent anxiety - ongoing issueHas tried ativan in the past w/ benefit################# ######################## ######################## #The diagnostic work-up for this problem thus far has included: Consultation Dx Date LocationHosp 08/12PCP STEVENSON Fullerer (in [place]) - not Meniere'sNeuro In the past during a hospitalizationCardsGI## ######################## ############Testing Result Date LocationHead + Neck CT-A 03/22/17 Normal (per report)MRI YrsAudio Ro n####################### ############Treatment for current illness:Medications:Braydon um - in the hospitalzofranProcedures /Surgery:PT Other Neck/VR - Maxx Wright / Leoncio Ron - w/ benefit. 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 Well nourished. No acute distress.Pain Behaviors: no pain behaviors observedCarotid examination was normal.General cardiac examination was normal.Mental status examination: Alert and Oriented to time, place and person.Language: fluent speech(limited evaluation)Cranial Nerve exam:Ophthalmologic: Visual hutton were normal. Fundoscopic exam was normal.Pupils were symmetric and reactive to light. Eye movements: normal, smooth pursuits, no nystagmus. Symptoms associated w/ eye movements: noneOtological examination: Kong: midline Rinne: normal (AC>BC) Tympanic membranes: L>R wax Finger rub: normal Response to 256 Hz tuning fork: normal Recruitment: No hyperacusisFacial Strength: symmetricFacial Sensation: Right Left V1 (scalp) Normal Normal V1 Normal Normal V2 Normal Normal V3 Normal Normal Ear (sup.) Normal Normal Left RightGON tender mild noneParaC2 tender mild to moderate nonePost. Vertex Normal NormalNormal palatal elevation.Tongue midline. Right LeftOral sensation: Ant Tongue - - Post Tongue - - Post PharynxCervical spine examination: Position: neutral Flexion: normal and painless Lateral C1 process tenderness: tender bilaterally - L(sig)>R Upper Cervical Rotation: Reduced left Sidebend: Reduced left w/ left paracervical pain Total Cervical Rotation: Reduced left w/ left paracervical pain C1 malrotation: RightNeck Vibration Testing: Right LeftSuboccipital +- + Off balanced sensationMasseter - -SCM - -Motor Exam: Tone: Normal with no atrophy or fasciculations Tremor : None Pronator Drift: NoneNormal shoulder shrug.Strength (out of 5): Right LeftHand Intrins 5 55th digit abd 5 5Wrist ext 5 5Shoulder abd. 5 5Hip flex 5 5Knee ext 5 5Ankle Dorsifl 5 5Shoulder Flex 5 5DTR's (out of 4): Right LeftBR 0 0BJ Tr 0TJ 1+ 1+KJ 2+ 2+AJ Tr TrPlantar resp. not tested not testedSensory Exam: Gross UE to PP: normal Gross LE to PP: N/TCoordination examination: Irljyo-nk-kfzj testing was normal bilaterally.Flwj-pl-fvec testing was normal bilaterally.Postural stability: Romberg: normalGait examination: Usual gait: Moderate base. stable Heel walk: unsteady Toe walk: somewhat unsteady Tandem (Forward): unsteady Tandem (Reverse): unsteady################ ######################## ######################## ##Off-balanced sensation - 3-4/10, 1-2 with manual cervical traction################ ######################## ######################## ##The patient was personally seen and examined by myself.Aubree Mcneal MDOtoneurology / NeurologyCenter for Headache and PainNeurological InstituteProvidence HospitalT33cc:Maxx Wright, PT *(Results of consultation to be transmitted via electronic medical recordfor those providers who practice within [facility] or with access to [facility], or via letter)Total time of 55 minutes was spent with the patient regarding the above. Normal [facility] Vital Signs Date Time Vital Sign Value Performing Clinician Nneka jimenez 03-27-2025 07:43-0400 Body height 149.[address] Kyara Odonnell MD Work Phone: 9(472)030-961489 [place] [address] 03-27-2025 07:43-0400 Body mass index (BMI) [Ratio] 23.2 kg/m2 Dr. Kyara Odonnell MD Work Phone: 8(165)268-667119 [place] [address] 03-27-2025 07:43-0400 Body weight 52.[address] Kyara Odonnell MD Work Phone: 8(511)376-697791 [address] 03-27-2025 07:43-0400 Diastolic blood pressure 71 mm[Hg] Dr. Kyara Odonnell MD Work Phone: 5(434)501-229989 [place] [address] 03-27-2025 07:43-0400 Heart rate 73 /min Dr. Kyara Odonnell MD Work Phone: 9(071)169-701619 [place] [address] 03-27-2025 07:43-0400 Respiratory rate 16 /min Dr. Kyara Odonnell MD Work Phone: 3(842)171-442589 [place] [address] 03-27-2025 07:43-0400 Systolic blood pressure 133 mm[Hg] Dr. Kyara Odonnell MD Work Phone: 1(976)203-503189 [place] [address] 12-18-2024 14:00-0500 Body height 149.[address] Kyara Odonnell MD Work Phone: 1(761)192-848619 [place] [address] 12-18-2024 13:54-0500 Body mass index (BMI) [Ratio] 23.8 kg/m2 Dr. Kyara Odonnell MD Work Phone: 0(479)843-717589 [place] [address] 12-18-2024 13:54-0500 Body temperature 97.5 [degF] Dr. Kyara Odonnell MD Work Phone: 5(481)543-205991 [address] 12-18-2024 13:54-0500 Body weight 53.[address] Kyara Odonnell MD Work Phone: [facility] 12-18-2024 13:54-0500 Diastolic blood pressure 71 mm[Hg] Dr. Kyara Odonnell MD Work Phone: [facility] 12-18-2024 13:54-0500 Heart rate 68 /min Dr. Kyara Odonnell MD Work Phone: [facility] 12-18-2024 13:54-0500 Respiratory rate 18 /min Dr. Kyara Odonnell MD Work Phone: 7(705)653-256289 [place] [address] 12-18-2024 13:54-0500 SaO2% (BldA) [Mass fraction] 99 % Dr. Kyara Odonnell MD Work Phone: [facility] 12-18-2024 13:54-0500 Systolic blood pressure 127 mm[Hg] Dr. Kyara Odonnell MD Work Phone: [facility] 03-21-2023 05:49-0400 Diastolic blood pressure 74 mm[Hg] Dr. Kyara Odonnell Work Phone: [facility] 03-21-2023 05:49-0400 Heart rate 79 /min Dr. Kyara Odonnell Work Phone: [facility] 03-21-2023 05:49-0400 Respiratory rate 18 /min Dr. Kyara Odonnell Work Phone: [facility] 03-21-2023 05:49-0400 SaO2% (BldA) [Mass fraction] 100 % Dr. Kyara Odonnell Work Phone: [facility] 03-21-2023 05:49-0400 Systolic blood pressure 125 mm[Hg] Dr. Kyara Odonnell Work Phone: [facility] 03-21-2023 03:15-0400 Body height 149.[address] Kyara Odonnell Work Phone: [facility] 03-21-2023 03:15-0400 Body mass index (BMI) [Ratio] 24.9 kg/m2 Dr. Kyara Odonnell Work Phone: [facility] 03-21-2023 03:15-0400 Body temperature 97.4 [degF] Dr. Kyara Odonnell Work Phone: [facility] 03-21-2023 03:15-0400 Body weight 55.[address] Kyara Odonnell Work Phone: 3(999)874-992589 [place] [address] 02-28-2023 13:26-0400 Body mass index (BMI) [Ratio] 24.4 kg/m2 Dr. Kyara Odonnell Work Phone: 4(620)650-917291 [address] 02-28-2023 13:26-0400 Body weight 54.[address] Kyara Odonnell Work Phone: 6(620)572-407889 [place] [address] 02-28-2023 13:26-0400 Diastolic blood pressure 65 mm[Hg] Dr. Kyara Odonnell Work Phone: 2(982)458-858289 [place] [address] 02-28-2023 13:26-0400 Heart rate 69 /min Dr. Kyara Odonnell Work Phone: 5(176)415-561491 [address] 02-28-2023 13:26-0400 Respiratory rate 18 /min Dr. Kyara Odonnell Work Phone: 7(935)211-040991 [address] 02-28-2023 13:26-0400 SaO2% (BldA) [Mass fraction] 98 % Dr. Kyara Odonnell Work Phone: 2(860)281-551489 [place] [address] 02-28-2023 13:26-0400 Systolic blood pressure 112 mm[Hg] Dr. Kyara Odonnell Work Phone: 1(600)657-693389 [place] [address] 01-12-2023 14:16-0500 Body height 149.[address] Kyara Odonnell Work Phone: [facility] 01-12-2023 14:16-0500 Body mass index (BMI) [Ratio] 24.4 kg/m2 Dr. Kyara Odonnell Work Phone: 4(355)452-255889 [place] [address] 01-12-2023 14:16-0500 Body weight 54.[address] Kyara Odonnell Work Phone: [facility] 01-12-2023 14:16-0500 Diastolic blood pressure 71 mm[Hg] Dr. Kyara Odonnell Work Phone: [facility] 01-12-2023 14:16-0500 Heart rate 65 /min Dr. Kyara Odonnell Work Phone: [facility] 01-12-2023 14:16-0500 Respiratory rate 16 /min Dr. Kyara Odonnell Work Phone: [facility] 01-12-2023 14:16-0500 Systolic blood pressure 112 mm[Hg] Dr. Kyara Odonnell Work Phone: [facility] 12-19-2022 10:30-0500 Body height 149.[address] Kyara Odonnell Work Phone: [facility] 12-19-2022 10:30-0500 Body weight 52.[address] Kyara Odonnell Work Phone: [facility] 12-19-2022 10:16-0500 Body mass index (BMI) [Ratio] 23.4 kg/m2 Dr. Kyara Odonnell Work Phone: [facility] 12-19-2022 10:16-0500 Heart rate 72 /min Dr. Kyara Odonnell Work Phone: [facility] 12-19-2022 10:16-0500 SaO2% (BldA) [Mass fraction] 97 % Dr. Kyara Odonnell Work Phone: [facility] 12-15-2022 01:29-0500 Diastolic blood pressure 81 mm[Hg] Dr. Kyara Odonnell Work Phone: [facility] 12-15-2022 01:29-0500 Heart rate 65 /min Dr. Kyara Odonnell Work Phone: [facility] 12-15-2022 01:29-0500 Respiratory rate 16 /min Dr. yKara Odonnell Work Phone: [facility] 12-15-2022 01:29-0500 SaO2% (BldA) [Mass fraction] 98 % Dr. Kyara Odonnell Work Phone: [facility] 12-15-2022 01:29-0500 Systolic blood pressure 145 mm[Hg] Dr. Kyara Odonnell Work Phone: [facility] 12-15-2022 00:12-0500 Body height 149.[address] Kyara Odonnell Work Phone: [facility] 12-15-2022 00:12-0500 Body mass index (BMI) [Ratio] 25 kg/m2 Dr. Kyara Odonnell Work Phone: [facility] 12-15-2022 00:12-0500 Body temperature 96.8 [degF] Dr. Kyara Odonnell Work Phone: 9(920)495-536589 [place] [address] 12-15-2022 00:12-0500 Body weight 56.[address] Kyara Odonnell Work Phone: [facility] 12-10-2022 11:41-0500 Body temperature 97.6 [degF] Dr. Kyara Odonnell Work Phone: [facility] 12-10-2022 11:41-0500 Diastolic blood pressure 80 mm[Hg] Dr. Kyara Odonnell Work Phone: [facility] 12-10-2022 11:41-0500 Heart rate 83 /min Dr. Kyara Odonnell Work Phone: [facility] 12-10-2022 11:41-0500 Respiratory rate 18 /min Dr. yKara Odonnell Work Phone: [facility] 12-10-2022 11:41-0500 SaO2% (BldA) [Mass fraction] 94 % Dr. Kyara Odonnell Work Phone: [facility] 12-10-2022 11:41-0500 Systolic blood pressure 133 mm[Hg] Dr. Kyara Odonnell Work Phone: [facility] 12-08-2022 23:22-0500 Body height 149.[address] Kyara Odonnell Work Phone: [facility] Work Phone: 12-08-2022 23:22-0500 Body mass index (BMI) [Ratio] 23.5 kg/m2 Dr. Kyara Odonnell Work Phone: [facility] 12-08-2022 23:22-0500 Body weight 52.[address] Kyara Odonnell Work Phone: [facility] 12-08-2022 22:31-0500 Diastolic blood pressure 81 mm[Hg] [facility] Work Phone: 12-08-2022 22:31-0500 Heart rate 88 /min [facility] Work Phone: 12-08-2022 22:31-0500 Systolic blood pressure 134 mm[Hg] [facility] Work Phone: 12-08-2022 22:07-0500 Body temperature 98.9 [degF] [facility] Work Phone: 12-08-2022 22:07-0500 Respiratory rate 12 /min [facility] Work Phone: 12-08-2022 22:07-0500 SaO2% (BldA) [Mass fraction] 98 % [facility] Work Phone: 12-08-2022 18:53-0500 Body height 149.86 cm [facility] Work Phone: 12-08-2022 18:53-0500 Body mass index (BMI) [Ratio] 23.8 kg/m2 [facility] Work Phone: 12-08-2022 18:53-0500 Body weight 53.52 kg [facility] Work Phone: 06-28-2022 08:50-0400 Body height 149.86 cm [facility] Work Phone: Encounters Encounter Date Encounter Type Care Provider Facility Start: 05-07-2025 ambulatory Joe Merino Facility:[facility] Start: 03-27-2025 End: 03-27-[address] Kyara Odonnell MD Work Phone: [facility] Work Phone: Start: 03-27-2025 End: 03-27-2025 Patient encounter procedure Debra GODFREY -Laboratory Work Phone: Start: 03-27-2025 End: 03-27-2025 Patient encounter procedure Debra GODFREY -[facility] Work Phone: Start: 03-27-2025 End: 03-27-2025 ambulatory Joe Merino Facility:[facility] Start: 03-27-2025 End: 03-27-2025 ambulatory [facility] Facility:[facility] Start: 02-25-2025 End: 02-25-[address] Kyara Odonnell MD Work Phone: [facility] Work Phone: Start: 02-25-2025 End: 02-25-[address] Joe Merino MD -Radiology, [place] Work Phone: Start: 02-25-2025 End: 02-25-2025 ambulatory Joe Angelique Facility:[facility] Start: 12-18-2024 End: 12-18-2024 Patient encounter procedure Debra GODFREY -[facility] Work Phone: Start: 12-18-2024 End: 12-18-2024 ambulatory Kyara Odonnell Facility:[facility] Start: 09-06-2024 End: 09-06-2024 ambulatory Jarrett GODFREY Facility:[facility] Start: 08-01-2024 End: 08-01-2024 ambulatory Jarrett GODFREY Facility:[facility] Start: 07-30-2024 End: 07-30-2024 ambulatory Kyara Odonnell Facility:[facility] Start: 07-01-2024 End: 07-01-2024 ambulatory Chalon Angelique Facility:[facility] Start: 06-19-2024 End: 06-19-2024 ambulatory Kyara Childiff Facility:[facility] Start: 06-14-2024 End: 06-14-2024 ambulatory Chalon Angelique Facility:[facility] Start: 05-21-2024 ambulatory Kyara S Roselinelliff Facility: [facility] Start: 03-14-2024 End: 03-14-[address] [facility] Work Phone: Start: 03-14-2024 End: 03-14-[address] [facility] Work Phone: Start: 03-06-2024 End: 03-06-[address] [facility] Work Phone: Start: 03-06-2024 End: 03-06-[address] [facility] Start: 01-30-2024 End: 01-30-[address] [facility] Work Phone: Start: 01-30-2024 End: 01-30-2024 Patient encounter procedure [facility] Start: 12-08-2023 End: 12-08-[address] [facility] Work Phone: Start: 12-08-2023 End: 12-08-[address] [facility] Start: 10-03-2023 End: 10-03-[address] [facility] Work Phone: Start: 10-03-2023 End: 10-03-[address] [facility] Start: 07-25-2023 End: 07-25-[address] [facility] Work Phone: Start: 07-25-2023 End: 07-25-2023 [facility] Start: 06-30-2023 End: 06-30-[address] [facility] Work Phone: Start: 06-30-2023 End: 06-30-[address] [facility] Work Phone: Start: 05-19-2023 End: 05-26-[address] Kyara Odonnell Work Phone: [facility] Work Phone: Start: 05-19-2023 End: 05-26-[address] Kyara Odonnell Work Phone: [facility] Work Phone: Start: 05-02-2023 End: 05-02-[address] Kyara Odonnell Work Phone: [facility]/Neurology Work Phone: Start: 05-02-[address] Kyara bernard Work Phone: [facility] Work Phone: Start: 04-26-2023 End: 04-26-[address] Kyara Odonnell Work Phone: [facility] Work Phone: Start: 04-26-2023 End: 04-26-[address] Kyara Odonnell Work Phone: [facility] Start: 03-24-2023 End: 03-26-[address] Kyara Odonnell Work Phone: [facility] Work Phone: Start: 03-24-2023 End: 03-26-[address] Kyara Odonnell Work Phone: [facility] Start: 03-22-[address] Kyara dahl Work Phone: [facility] Start: 03-21-2023 End: 03-21-2023 Emergency department patient visit Dr. Kyara Odonnell [facility] Phone[facility] [facility] Start: 03-20-[address] Kyara dahl Work Phone: [facility] Start: 03-13-2023 End: 03-13-[address] Kyara Odonnell Work Phone: [facility] Work Phone: Start: 03-13-2023 End: 03-13-[address] Kyara Odonnell Work Phone: [facility] Start: 02-28-2023 End: 02-28-[address] Kyara Odonnell Work Phone: [facility] Start: 01-13-2023 End: 01-13-[address] Kyara Odonnell Work Phone: [facility] Work Phone: Start: 01-13-2023 End: 01-13-[address] Kyara Odonnell Work Phone: [facility] Start: 01-12-2023 End: 01-12-[address] Kyara Odonnell Work Phone: [facility] Start: 12-28-2022 End: 01-24-[address] Kyara Odonnell Work Phone: [facility] Work Phone: Start: 12-28-2022 End: 01-24-[address] Kyara Odonnell Work Phone: [facility] Start: 12-28-[address] Kyara dahl Work Phone: [facility] Start: 12-26-2022 End: 12-27-[address] Kyara Odonnell Work Phone: [facility] Work Phone: Start: 12-26-2022 End: 12-27-[address] Kyara Odonnell Work Phone: [facility] Start: 12-19-2022 End: 12-19-[address] Kyara Odonnell Work Phone: [facility] Work Phone: Start: 12-19-2022 End: 12-19-[address] Kyara Odonnell Work Phone: [facility] Start: 12-19-2022 End: 12-19-[address] Kyara Odonnell Work Phone: [facility] Work Phone: Start: 12-19-2022 End: 12-19-[address] Kyara Odonnell Work Phone: [facility] Start: 12-15-2022 End: 12-15-2022 Emergency department patient visit Dr. Kyara Odonnell Work Phone: [facility] Start: 12-12-2022 End: 12-12-[address] Kyara Odonnell Work Phone: [facility] Start: 12-10-2022 Non-patient / Non-visit Dr. Marita Odonnell Work Phone: [facility] Start: 12-10-2022 Non-patient / Non-visit Dr. Marita Odonnell Work Phone: [facility] Start: 12-09-2022 Non-patient / Non-visit Dr. Marita Odonnell Work Phone: [facility] Start: 12-09-2022 Non-patient / Non-visit Dr. Marita Odonnell Work Phone: [facility] Start: 12-08-2022 End: 12-08-2022 Non-patient / Non-visit Dr. Kyara Odonnell Work Phone: [facility] Start: 12-08-2022 End: 12-10-2022 Evaluation and management of inpatient [facility] Start: 06-28-2022 End: 06-28-[address] [facility] Start: 01-24-2018 Ambulatory [facility] Procedures Date Procedure Procedure Detail Performing Clinician Start: 02-25-2025 X-ray of chest, PA a nd lateral views Dr. Kyara Odonnell MD Work Phone: Start: 12-08-2023 Plain X-ray of tibia and fibula Start: 10-03-2023 Diagnostic radiograp hy of abdomen, decubitus and erect Start: 06-30-2023 Screening mammography Start: 03-21-2023 Plain chest X-ray Dr. Dcaia Odonnell Work Phone: Start: 12-09-2022 History of placement of stent for coronary artery disease History of coronary artery stent placement Dr. Kyara Odonnell Work Phone: Comment on above: [place] 2.5 X 9 FARRUKH to first OM ostial, and [place] 4.0 X 9 FARRUKH to CX 11/2022 Start: 12-08-2022 Plain chest X-ray Start: 06-28-2022 Screening mammography Plan of Treatment Date Care Activity Detail Author Start: 03-27-2025 Evaluation of diagno stic study results [facility] Start: 12-10-2022 Patient discharge [facility] Start: 12-09-2022 Patient referral [facility] Work Phone: Start: 12-09-2022 Cardiac monitoring [facility] Start: 12-09-2022 Cardiac rehabilitati on - phase 1 [facility] Start: 12-09-2022 Cardiac rehabilitati on - phase 2 [facility] Start: 12-09-[address] [facility] Start: 12-09-2022 Patient discharge [facility] Start: 12-09-2022 Patient education [facility] Start: 12-09-2022 Provision of activit y privileges [facility] Start: 12-09-2022 Pulse taking [facility] Start: 12-09-2022 Systemic arterial pr essure monitoring [facility] Start: 12-09-2022 Taking patient vital signs [facility] Start: 12-09-2022 Vascular disease ris k assessment [facility] Start: 12-09-[address] [facility] Start: 12-09-2022 Wound care [facility] Start: 12-09-2022 End: 12-09-2022 [facility] Start: 12-09-[address] assessment [facility] Start: 12-09-2022 Referral to equipment mechanic [facility] Start: 12-08-[address] [facility] Start: 12-08-2022 Tobacco use cessatio n education [facility] Start: 12-08-2022 End: 12-08-2022 [facility] Start: 12-08-2022 Assessment of risk o f venous thromboembolism [facility] Start: 12-08-2022 Insertion of cathete r into peripheral vein [facility] Start: 12-08-2022 Measuring intake and output [facility] Start: 12-08-2022 Providing care accor ding to standard [facility] Start: 12-08-2022 Provision of activit y privileges [facility] Start: 12-08-2022 Referral to occupati onal therapist [facility] Start: 12-08-[address] [facility] Start: 12-08-2022 Following clinical p athway protocol [facility] Start: 12-08-[address] [facility] Start: 12-08-2022 [facility] Work Phone: Start: 06-28-2022 Dual energy X-ray absorptiometry Dexa Bone Density Study [facility] Work Phone: Lipid 1996 panel - S iesha or Plasma [facility] Patient Education [facility] Work Phone: Patient referral [facility] Work Phone: [facility] Immunizations Immunization Date Immunization Notes Care Provider Angela davila 08-14-2017 Influenza virus vaccine [facility] 10-15-2015 Influenza virus vaccine [facility] Payers Date Payer Category Payer Self-pay [id number] 2014 Private Health Insurance 101 [id number] Unknown [id number] 2.16.8 [id number] Unknown [id number] 2.16.8 [id number] Unknown [id number] 2.16.8 [id number] Unknown [id number] 2.16.8 [id number] Unknown [id number] 2.16.8 [id number] Unknown [id number] 2.16.8 [id number] Unknown [id number] 2.16.8 [id number] Unknown [id number] 2.16.8 [id number] Unknown [id number] 2.16.8 [id number] Unknown [id number] 2.16.8 [id number] Unknown [id number] 2.16.8 [id number] Unknown [id number] 2.16.8 [id number] Social History Date Type Detail Facility Start: 08-09-2021 End: 03-21-2023 Tobacco smoking status NHIS Unknown if ever smoked [facility] Start: 11-30-2017 None [facility] Start: 11-30-2017 Spouse/ Signif icant Other [facility] Start: 11-30-2017 Non-smoker [facility] Start: 1940 Sex Assigned At Female [facility] Start: 03-21-2023 Tobacco smoking status NHIS Never smoked tobacco (finding) [facility] Start: 03-03-2025 Sex Female (finding) [facility] Medical Equipment Procedure Code Equipment Code Equipment Origin al Text Equipment Identifier Dates ([id number]) Drug-eluting coronary artery stent, bioabsorbable-polyme r-coated ()[id number] FDA Start: 12-09-2022 ([id number]) Drug-eluting coronary artery stent, bioabsorbable-polyme r-coated ()[id number] FDA Start: 12-09-2022 Functional Status Date Assessment Result Facility 12-10-2022 Functional status Ambulates;Up ad taj [facility] Work Phone: Mental Status Date Assessment Result Facility 03-21-2023 Cognitive function Voice/Name [facility] Work Phone: 12-15-2022 Cognitive function Level Of Cons ciousness Awake;Alert;Appropriate [facility] Work Phone: 12-10-2022 Cognitive function Voice/Name [facility] Work Phone: 12-08-2022 Cognitive function Voice/Name [facility] Work Phone: Clinical Notes 12-18-2024 to 02-26-2025 Note Date & Type Note Facility 02-26-2025 Radiology Diagnostic study note [facility] Imaging Services [address] [place] [address] Chest PA and Lateral MR#: [id number] Acct: [id number] Name: SHARON LOVE Rep #: [id number] : 1940 F 84 From: Saad Pimentel MD PCP: Dr. Joe Merino MD Status: REG CL I Study:Chest PA and Lateral Date of Exam: 02/25/25 Exam# [id number] Ordering Dr: Radhika Merino MD PROCEDURE: CHEST PA AND LATERAL 02/25/2025 REASON FOR EXAM: PRODUCTIVE COUGH TECHNIQUE: Frontal and lateral views of the chest. PA and lateral COMPARISON: 03/21/2023 FINDINGS: The lungs appear clear. Pulmonary vascularity appears within limits. No pleural effusion. The cardiac and mediastinal contours appear within limits. Status post cholecystectomy. Atherosclerotic changes at the thoracic aorta and spondylosis/discogenic change thoracic spine again noted. RAD/Chest PA and Lateral IMPRESSION: No evidence of acute disease. Reading Location: [facility] CC: Dr. Joe Merino MD ~ Cherry Cutter: Signed [facility] 12-18-2024 Evaluation note Diagnosis Onset Date Resolution Atherosclerotic heart disease of [place] coronary artery without angina pectoris acute December 18 1:46pm HLD (hyperlipidemia) acute 2024 1:46pm Essential hypertension chronic [facility] 2024 1:46pm [facility] Work Phone: 1(218) 604-335401-22-2025 Evaluation note* Diagnosis Onset Date Resolution Status Admit Date Atherosclerotic heart diseas e of [place] coronary artery without angina pectoris acute December 18 1:46pm HLD (hyperlipidemia) acute 2024 1:46pm Essential hypertension chronic [facility] 2024 1:46pm Atherosclerotic heart diseas e of [place] coronary artery without angina pectoris acute March 27, 2025 9: 11am HLD (hyperlipidemia) acute March 27, 2025 9:11am Tachycardia acute March 27, 2025 9:11am Essential hypertension chronic Sd y 2024 9:11am [facility] Work Phone: Discharge summary Author Virgil Bazzi [facility] March 21, 2023 5:38am Note Date/Time March 21, 2023 4:[address] [facility] Medical Records Department [address] [place] [address] Emergency Department Summary 03/21/23 MR#: [id number] Acct: [id number] Name: SHARON LOVE Rep #:[id number] : 1940 82 From: Virgil Bazzi DO PCP: Dr. Kyara Odonnell MD Status:REG ER Location: ED HPI History of Present Illness Chief Complaint: Numb/Ting Narrative Narrative: Patient is 82-year-old female with past medical history of hypertension hyperlipidemia and CAD with stent placement in November 2022. She states she went to bed feeling normal and then awoke roughly 1 to 2 hours prior to arrival with some pain in her right arm numbness and tingling in her left and then noticed some pain in her left mid to upper back. She states there is no associated nausea vomiting diaphoresis or shortness of breath. She states the arm pain and numbness resolved quickly but that the back issue has persisted. She states because of her history of previous heart attack she is concerned she may get having heart damage once again and therefore comes in for evaluation. [facility] Medical History Abnormal bruising Dehydration Essential hypertension HLD (hyperlipidemia) Hypokalemia Intractable nausea and vomiting Myocardial infarct Sensorineural hearing loss Unstable angina Vertigo Home Medications aspirin 81 mg chewable tablet 81 mg PO QHS heart health 02/15/14 [History Last Taken 11/29/17] glucosamine sulfate 2KCl 500 mg capsule (Glucosamine Relief) 1,000 mg PO BID supplement 02/15/14 [History Last Taken 11/29/17] multivitamin with folic acid 400 mcg tablet (Thera) 1 tab PO DAILY supplement 02/15/14 [History Last Taken 11/29/17] vitamin E (dl, acetate) 180 mg (400 unit) capsule 400 units PO BID supplement 02/15/14 [History Last Taken 11/29/17] cyanocobalamin (vitamin B-12) 1,000 mcg capsule 1,000 mcg PO DAILY supplement 11/30/17 [History Last Taken 11/29/17] losartan 100 mg tablet 100 mg PO QHS blood pressure 12/08/22 [History Last Taken Unknown] nitroglycerin 0.4 mg sublingual tablet 0.4 mg sublingual Q5M PRN Chest pain #30 tabs 12/10/22 [Rx Last Taken Unknown] MODUCHOL PO/SL BID 12/15/22 [History Last Taken Unknown] amlodipine 5 mg tablet 5 mg PO DAILY blood pressure 01/12/23 [History Last Taken Unknown] calcium citrate 250 mg calcium-vitamin D3 5 mcg (200 unit) tablet 1 tab PO DAILYsupplement 01/12/23 [History Last Taken Unknown] hydrochlorothiazide 12.5 mg tablet 12.5 mg PO DAILY 01/12/23 [History Last Taken Unknown] clopidogrel 75 mg tablet 75 mg PO DAILY 02/28/23 [History Last Taken Unknown] ezetimibe 10 mg tablet (Zetia) 10 mg PO DAILY #30 tabs 02/28/23 [Rx Last Taken Unknown] alirocumab 150 mg/mL subcutaneous pen injector (Praluent Pen) 150 mg subcut Q14Dpt cannot tolerate statins or Zetia #2 mL 03/07/23 [Rx Last Taken Unknown] Allergy/AdvReac Type Severity Reaction Status Date / Time [id number]-[id number] Reductase Allergy Severe Pain in Verified 03/21/23 03:20 Inhibitor joints Penicillins Allergy Unknown Verified 03/21/23 03:20 Family History Sister Pacemaker Father CVA (cerebral vascular accident) Surgical History H/O: hysterectomy History of cholecystectomy History of coronary artery stent placement (12/09/22) Social History Smoking Status: Never smoker alcohol intake: never substance use type: does not use caffeine: No ROS ROS ED Constitutional Constitutional ED: Denies chills or fever(s) ENT ENT ED: Denies sore throat Cardiovascular Cardiovascular: Reports chest pain; Denies palpitations or racing heartbeat Respiratory/Chest Respiratory/Chest: Denies cough or dyspnea Gastrointestinal Gastrointestinal: Denies abdominal pain, diarrhea, nausea or vomiting Genitourinary Genitourinary ED: Denies dysuria or hematuria Musculoskeletal Musculoskeletal: Reports back pain; Denies myalgias Integumentary Denies rash Neurologic Neurologic: Reports paresthesias; Denies headache(s) Hematologic/Lymphatic Hematologic/Lymphatic: Denies easy bleeding or easy bruising EXAM Physical Exam Const Vital Signs: 03/21/23 03:15 Temperature 97.4 F L Temperature Source Temporal Pulse Rate 83 Respiratory Rate 12 Blood Pressure 147/71 H Blood Pressure Mean 96 Pulse Ox 97 Oxygen Delivery Method Room Air Positive well nourished and well developed General Appearance ED: well developed HEENT HEENT Narrative: Normocephalic atraumatic Eyes PERRL and EOMs intact bilaterally Neck supple Neck Narrative: Carotid pulses are equal and symmetric Chest Wall palpation of chest normal Chest Narrative: No bony deformity or crepitance Resp normal respiratory effort and clear to auscultation bilaterally Cardio regular rate and regular rhythm Rate: other Other Details: Radial pulses are plus 2 out of 4 bilaterally are equal and symmetric GI normal to inspection, nondistended, normoactive bowel sounds, non-tender, non-distended and no masses GI Narrative: No bone guarding or rigidity. No pulsatile mass or fluid wave Auscultation: normoactive bowel sounds Palpation: soft Back/Spine Back/Spine Narrative: There is reproducible pain with palpation along the angle of the scapula on the left. Patient states this is the same pain she is experiencing. There is no overlying erythema or warmth. No abrasions or ecchymosis. Extremity normal to inspection Extremity Narrative: No asymmetric edema no pitting edema negative Homans' sign bilaterally Neuro oriented x3 and CN's II-XII intact bilaterally Sensorium / Orientation: alert Psych mental status grossly normal Skin no rashes or lesions noted Skin Narrative: No overlying soft tissue changes to suggest trauma or infection MDM MDM MDM Narrative Medical decision making narrative: Patient presented to the ER in no acute distress. She has spontaneous resolution of her reported arm symptoms that were there upon waking and now doeshave pain in her left mid lateral low back. Differential includes acute coronary syndrome pneumonia pneumothorax the stone pyelonephritis or a musculoskeletal strain. Because of her previous history of CAD requiring stent placement just 4 months ago a cardiac work-up was performed. EKG is normal sinus rhythm chest x-ray reveals no acute lung pathology and initial troponin isnormal at 5. There is concern that this could be secondary to a pyelonephritis or kidney stone but urine sample shows no blood going against stone and no signsof infection. Patient's mediastinum is not widened on chest x-ray she has equaland symmetric pulses and the pain is reproducible with palpation going against any type of dissection and indicating this is more muscular in nature. A delta troponin was obtained at the 2-hour sid and shows no elevation from the initial. Therefore at this time with work-up showing no signs of acute coronarysyndrome and patient having improvement of symptoms she is otherwise safe for discharge History & Record Review Discussion w/independent historian: Patient and Family Lab Data Attestation: I reviewed the patient's lab results. Labs: Laboratory Results - last 24 hr 03/21/23 03/21/23 03/21/23 03:03 03:03 03:48 WBC 6.9 RBC 4.84 Hgb 15.0 Hct 46.3 MCV 95.7 MCH 31.0 MCHC 32.4 RDW Std Deviation 44.7 H RDW Coeff of Lyla 12.7 Plt Count 288 MPV 9.4 Immature Gran % (Auto) 0.300 Neut % (Auto) 46.7 L Lymph % (Auto) 39.9 [place] % (Auto) 9.3 Eos % (Auto) 2.9 Baso % (Auto) 0.9 Absolute Neuts (auto) 3.2 Absolute Lymphs (auto) 2.75 Nucleated RBC % 0 Sodium 138 Potassium 3.4 L Chloride 106 Carbon Dioxide 27.0 Anion Gap 5 BUN 24 H Creatinine 0.96 Estim Creat Clear Calc 41.25 Est GFR (MDRD) Af Amer 72 Est GFR (MDRD) Non-Af 59 L BUN/Creatinine Ratio 24.9 H Glucose 113 H Calcium 9.6 Magnesium 2.7 H Troponin I High Sens 5 Urine Color Yellow Urine Clarity Clear Urine pH 6.5 Ur Specific [place] 1.010 Urine Protein Negative Urine Glucose (UA) Normal Urine Ketones Negative Urine Occult Blood Negative Urine Nitrite Negative Urine Bilirubin Negative Urine Urobilinogen Normal Ur Leukocyte Esterase Negative Urine RBC 0 SEEN Urine WBC 0 SEEN Ur Squamous Epith Cells 0 SEEN Urine Bacteria 0 SEEN Urine Mucus 0 SEEN 03/21/23 05:05 WBC RBC Hgb Hct MCV MCH MCHC RDW Std Deviation RDW Coeff of Lyla Plt Count MPV Immature Gran % (Auto) Neut % (Auto) Lymph % (Auto) [place] % (Auto) Eos % (Auto) Baso % (Auto) Absolute Neuts (auto) Absolute Lymphs (auto) Nucleated RBC % Sodium Potassium Chloride Carbon Dioxide Anion Gap BUN Creatinine Estim Creat Clear Calc Est GFR (MDRD) Af Amer Est GFR (MDRD) Non-Af BUN/Creatinine Ratio Glucose Calcium Magnesium Troponin I High Sens 6 Urine Color Urine Clarity Urine pH Ur Specific [place] Urine Protein Urine Glucose (UA) Urine Ketones Urine Occult Blood Urine Nitrite Urine Bilirubin Urine Urobilinogen Ur Leukocyte Esterase Urine RBC Urine WBC Ur Squamous Epith Cells Urine Bacteria Urine Mucus Radiography Diagnostic Testing: Clinical Impression(s) from Imaging Studies Chest X-Ray 03/21/23 03:34 IMPRESSION: COPD and atherosclerotic disease Electronically Signed: Sid Storm MD at 4:29 EDT , Chest x-ray as interpreted by the emergency medicine physician reveals no acute infiltrate pneumothorax or pleural effusion Discharge Plan Triage Chief Complaint: Numb/Ting ED Provider: Virgil Bazzi Dx/Rx/DC Orders Clinical Impression: Thoracic myofascial strain, Nonspecific chest pain, Essential hypertension Instructions: ED Chest Pain, Noncardiac, ED Thoracic Spine Strain Prescriptions: No Action amlodipine 5 mg tablet 5 mg PO DAILY hydrochlorothiazide 12.5 mg tablet 12.5 mg PO DAILY clopidogrel 75 mg tablet 75 mg PO DAILY ezetimibe [Zetia] 10 mg tablet 10 mg PO DAILY Qty: 30 11RF aspirin 81 MG tablet,chewable 81 mg PO QHS Label Comments: HEART/BLOOD THINNER vitamin E (dl, acetate) 400 UNITS capsule 400 units PO BID Label Comments: VITAMIN Glucosamine Relief 500 MG capsule 1,000 mg PO BID Label Comments: VITAMIN/HERB multivitamin with folic acid [Thera] 1 TABLET tablet 1 tab PO DAILY Label Comments: VITAMIN calcium citrate-vitamin D3 250 mg-5 mcg (200 unit) tablet 1 tab PO DAILY Label Comments: VITAMIN cyanocobalamin (vitamin B-12) 1,000 MCG capsule 1,000 mcg PO DAILY nitroglycerin 0.4 mg Tablet, Sublingual 0.4 mg sublingual Q5M PRN (Reason: Chest pain) Qty: 30 0RF MODUCHOL PO/SL BID losartan 100 mg tablet 100 mg PO QHS Praluent Pen 150 mg/mL pen injector 150 mg subcut Q14D Qty: 2 11RF Primary Care Provider: Kyara Odonnell Referrals: Kyara Odonnell MD [Primary Care Provider] - Activity Restrictions/Additional Instructions: Your work-up today does not show any signs of heart damage and your physical exam indicates this is most likely musculoskeletal in nature. Heat the area andtake [id number] pain medication for symptom control. Continue all of yourhome medications as previously directed. Return to the ER should you have any further concerns Disposition Disposition: Home, Self Care What to do if you have Problems For any increased pain, shortness of breath, bleeding, nausea or vomiting, chestpain, or any unexpected problems, contact your Primary Care Provider. Call [facility] ([phone]) or report to the closest Emergency Room. Call 911 if necessary. 03/21/23 0538 <Electronically signed by Virgil Bazzi DO> Cosigner Signature (if applicable): CC: Dr. Kyara Odonnell MD ~ Signed [facility] Work Phone: Evaluation noteNo assessment information available [facility] Work Phone: evaluation note* Diagnosis Onset Date Resolution Status Chest pain acute NSTEMI, initial episode of care acute Unstable angina acute [facility] Work Phone: Evaluation note* Diagnosis Onset Date Resolution Status Chest pain acute HLD (hyperlipidemia) acute NSTEMI, initial episode of care acute Unstable angina acute HTN (hypertension) chronic [facility] Work Phone: Evaluation note* Diagnosis Onset Date Resolution Status Chest pain acute HLD (hyperlipidemia) acute NSTEMI, initial episode of care acute Unstable angina acute [facility] Work Phone: Evaluation note* Diagnosis Onset Date Resolution Status Chest pain resolved NSTEMI, initial episode of care resolved 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 Work Phone: Evaluation note* Diagnosis Onset Date Resolution Status HLD (hyperlipidemia) acute Chest pain resolved NSTEMI, initial episode of care resolved Atherosclerotic heart diseas e of [place] coronary artery without angina pectoris acute Irregular heart beat acute Essential hypertension chron ic Atherosclerotic heart diseas e of [place] coronary artery without angina pectoris acute HLD (hyperlipidemia) acute Essential hypertension [facility] Work Phone: Evaluation note* Diagnosis Onset Date Resolution Status Atherosclerotic heart diseas e of [place] coronary artery without angina pectoris acute Irregular heart beat acute Essential hypertension chron ic Atherosclerotic heart diseas e of [place] coronary artery without angina pectoris acute HLD (hyperlipidemia) acute Essential hypertension [facility] Work Phone: Evaluation note* Diagnosis Onset Date Resolution Status Atherosclerotic heart diseas e of [place] coronary artery without angina pectoris acute HLD (hyperlipidemia) acute Essential hypertension [facility] Work Phone: Hospital Discharge instructions Additional Instructions Your work-up today showed no signs of heart damage or kidney damage. Please continue to take your medications as directed by your doctor and return to the ER should [facility] have any [facility] Work Phone: Hospital Discharge instructions Additional Instructions Your work-up today does not show any signs of heart damage and your physical exam indicates this is most likely musculoskeletal in nature. Heat the area and take [id number] pain medication for symptom control. Continue all of your home medications as previously directed. Return to the ER should you have any further concernsWA[facility] Work Phone: Reason for referral (narrative)No reason for referral information availableSt[facility] Work Phone: Summary Purpose Family History No Family History Records Found Relationship Condition Age at Onset Recorded Date/T les Unknown Family History?- Unknown November 8:50am Family History?Heart Disease Unknown February 15, 2014 2:15pm Family History?Heart Disease Unknown August 05, 2016 1:41pm Family History?Heart Disease Unknown November 30, 2017 8:50am Relationship Condition Age at Onset Recorded Date/T les Unknown Family History?- Unknown November 7:50am Family History?Heart Disease Unknown February 15, 2014 1:15pm Family History?Heart Disease Unknown August 05, 2016 12:41pm Family History?Heart Disease Unknown November 30, 2017 7:50am Relationship Condition Age at Onset Recorded Date/T les Unknown Family History?- Unknown November 7:50am Family History?Heart Disease Unknown February 15, 2014 1:15pm Family History?Heart Disease Unknown November 30, 2017 7:50am Family History?Heart Disease Unknown December 12, 2022 9:54am Relationship Condition Age at Onset Recorded Date/T les sister Presence of cardiac pacemaker Unknown father Cerebrovascular accident (CVA) Unknown Advance Directives No Advanced Directives Records Found Advance Directive Response Recorded Date/ Time Advance Directives Yes December 09, 2016 7:30pm Living Will Yes August 09, 2021 7:44am Power of Accounting Specialist Yes July 7:44am Advance Directive Response Recorded Date/ Time Advance Directives Yes December 09, 2016 6:30pm Living Will Yes December 08 6:58pm Power of Accounting Specialist Yes December 08, 2022 6:58pm Name of Medical Power of Accounting Specialist . December 08, 2022 6:58pm Advance Directive Response Recorded Date/ Time Name of Medical Power of Accounting Specialist Pollo Love December 08, 2022 11:22pm Advance Directives Yes December 09, 2016 6:30pm Living Will Yes December 08 11:22pm Power of Accounting Specialist Yes December 08, 2022 11:22pm Advance Directive Response Recorded Date/ Time Name of Medical Power of Accounting Specialist Pollo Kate December 08, 2022 11:22pm Name of Medical Power of Accounting Specialist POLLO KATE SALDIVAR [facility] December 15, 2022 12:17am Advance Directives Yes December 12, 2022 9:54am Living Will Yes December 15 12:17am Power of Accounting Specialist Yes December 15, 2022 12:17am Advance Directive Response Recorded Date/ Time Name of Medical Power of Accounting Specialist Pollo Kate December 08, 2022 11:22pm Advance Directives on File No Novua 2022 10:16am Advance Directives Yes December 12, 2022 9:54am Living Will No December 19 10:16am Power of Accounting Specialist No December 19, 2022 10:16am Name of Medical Power of Accounting Specialist POLLO ENGLELEONEL SALDIVAR [facility] December 15, 2022 12:17am Advance Directive Response Recorded Date/ Time Name of Medical Power of Accounting Specialist Pollo Love December 09, 2022 12:22am Advance Directives on File No Héctor ry 2022 11:16am Name of Medical Power of Accounting Specialist POLLO BRUMFIELD December 15, 2022 1:17am Name of Medical Power of Accounting Specialist Winston Love March 21, 2023 3:18am Advance Directives Yes December 12, 2022 10:54am Living Will Yes March 21, 2023 3:18am Power of Accounting Specialist Yes March 21 3:18am Advance Directive Response Recorded Date/ Time Name of Medical Power of Accounting Specialist Winston Love March 21, 2023 3:18am Advance Directives Yes December 12, 2022 10:54am Living Will Yes March 21, 2023 3:18am Power of Accounting Specialist Yes March 21 3:18am Advance Directive Response Recorded Date/ Time Advance Directives Yes December 12, 2022 10:54am Living Will Yes March 21, 2023 3:18am Power of Accounting Specialist Yes March 21 3:18am Advance Directive Response Recorded Date/ Time Advance Directives Yes December 12, 2022 9:54am Living Will Yes March 21, 2023 2:18am Power of Accounting Specialist Yes March 21 2:18am Advance Directive Response Recorded Date/ Time Living Will Yes March 21, 2023 3:18am Do you have a Healthcare Power of Accounting Specialist? Yes March 21, 2023 3:18am Advance Directives Yes December 12, 2022 10:54am Chief Complaint and Reason for Visit Chief Complaint SCREENING/OSTEO Chief Complaint NSTEMI Reason for Visit Chest pain NSTEMI, initial episode of care Unstable angina Chief Complaint NSTEMI NSTEMI NSTEMI NSTEMI Reason for Visit Chest pain HLD (hyperlipidemia) NSTEMI, initial episode of care Unstable angina HTN (hypertension) Chief Complaint NSTEMI NSTEMI NSTEMI NSTEMI NSTEMI Right foot dark post cath Bigg HYPERTENTION Reason for Visit Chest pain HLD (hyperlipidemia) NSTEMI, initial episode of care Unstable angina Chief Complaint NSTEMI NSTEMI NSTEMI NSTEMI NSTEMI Right foot dark post cath Bigg HYPERTENTION PCI w/coronary stenting, [place] NonSTEMI large bruises back of left leg L.[place]orson EORDER PCI w/coronary stenting Reason for Visit Chest pain NSTEMI, initial episode of care Chief Complaint NSTEMI CP NSTEMI NSTEMI NSTEMI NSTEMI Right foot dark post cath L.[place]on HYPERTENTION PCI w/coronary stenting, [place] NonSTEMI large bruises back of left leg L.Lorson EORDER PCI w/coronary stenting PCI w/coronary stenting Reason for Visit Chest pain NSTEMI, initial episode of care Chief Complaint NSTEMI CP NSTEMI NSTEMI NSTEMI NSTEMI Right foot dark post cath L.Lorson HYPERTENTION PCI w/coronary stenting, [place] NonSTEMI large bruises back of left leg L.Lorson EORDER PCI w/coronary stenting PCI w/coronary stenting S/P NSTEMI/PCI ASHD, HTN, DIZZINESS *LUZ TO READ* Reason for Visit Chest pain NSTEMI, initial episode of care Atherosclerotic heart disease of [place] coronary artery without angina pectoris Irregular heart beat Essential hypertension Chief Complaint NSTEMI CP NSTEMI NSTEMI NSTEMI NSTEMI Right foot dark post cath L.[place]on HYPERTENTION PCI w/coronary stenting, [place] NonSTEMI large bruises back of left leg L.[place]orson EORDER PCI w/coronary stenting PCI w/coronary stenting S/P NSTEMI/PCI ASHD, HTN, DIZZINESS *LUZ TO READ* 6 wk FU INT LABS PCI w/coronary stenting back pain, numbness Reason for Visit HLD (hyperlipidemia) Chest pain NSTEMI, initial episode of care Atherosclerotic heart disease of [place] coronary artery without angina pectoris Irregular heart beat Essential hypertension Atherosclerotic heart disease of [place] coronary artery without angina pectoris HLD (hyperlipidemia) Essential hypertension Chief Complaint NSTEMI CP NSTEMI NSTEMI NSTEMI NSTEMI Right foot dark post cath L.[place]on HYPERTENTION PCI w/coronary stenting, [place] NonSTEMI large bruises back of left leg L.[place]orson EORDER PCI w/coronary stenting PCI w/coronary stenting S/P NSTEMI/PCI ASHD, HTN, DIZZINESS *LUZ TO READ* 6 wk FU INT LABS back pain, numbness PCI w/coronary stenting Reason for Visit HLD (hyperlipidemia) Chest pain NSTEMI, initial episode of care Atherosclerotic heart disease of [place] coronary artery without angina pectoris Irregular heart beat Essential hypertension Atherosclerotic heart disease of [place] coronary artery without angina pectoris HLD (hyperlipidemia) Essential hypertension Chief Complaint PCI w/coronary stent ing S/P NSTEMI/PCI ASHD, HTN, DIZZINESS *LUZ TO READ* 6 wk FU INT LABS back pain, numbness PCI w/coronary stenting PCI w/coronary stenting Reason for Visit Atherosclerotic hear t disease of [place] coronary artery without angina pectoris Irregular heart beat Essential hypertension Atherosclerotic heart disease of [place] coronary artery without angina pectoris HLD (hyperlipidemia) Essential hypertension Chief Complaint 6 wk FU INT LABS back pain, numbness PCI w/coronary stenting PCI w/coronary stenting SCREENING TACHYCARDIA AND PALPITATIONS PCI w/coronary stenting Reason for Visit Atherosclerotic hear t disease of [place] coronary artery without angina pectoris HLD (hyperlipidemia) Essential hypertension Chief Complaint INT LABS back pain, numbness PCI w/coronary stenting PCI w/coronary stenting SCREENING TACHYCARDIA AND PALPITATIONS PCI w/coronary stenting SCREENING Chief Complaint PCI w/coronary stent ing SCREENING TACHYCARDIA AND PALPITATIONS PCI w/coronary stenting SCREENING Chief Complaint SCREENING LUQ pain Chief Complaint LUQ pain EORDER- LEFT LEG,MAN PAIN Chief Complaint EORDER- LEFT LEG,JUANITO N PAIN Chief Complaint Admit Date 6 M FU December 18, 2024 1 :46pm E-ORDER February 25, 2025 1:34 pm Reason for Visit Admit Date Atherosclerotic heart diseas e of [place] coronary artery without angina pectoris December 18, 2024 1:46pm HLD (hyperlipidemia) December 18, 2024 1:46pm Essential hypertension December 18 1:46pm Chief Complaint Admit Date 6 M FU December 18, 2024 1 :46pm E-ORDER February 25, 2025 1:34 pm Fast Heart Rate (Angelique) March 27, 2025 9:1 1am Reason for Visit Admit Date Atherosclerotic heart diseas e of [place] coronary artery without angina pectoris December 18, 2024 1:46pm HLD (hyperlipidemia) December 18, 2024 1:46pm Essential hypertension December 18 1:46pm Atherosclerotic heart diseas e of [place] coronary artery without angina pectoris March 27, 2025 9:11am HLD (hyperlipidemia) March 27, 2025 9:11a m Tachycardia March 27, 2025 9:11am Essential hypertension March 27, 2025 9:1 1am Additional Source Comments INFORMATION SOURCE (unrecogn ized section and content) DATE CREATED AUTHOR 05/18/[address] [facility] DATE CREATED AUTHOR AUTHOR'S ORGANIZ ATION 04/28/2025 [facility] Goals (unrecognized section and content) Goals may be documented in a n alternate sectionGoals may be documented in an alternate sectionGoals may be documented in an alternate sectionGoals may be documented in an alternate sectionGoals may be documented in an alternate sectionGoals may be documented in an alternate sectionGoals may be documented in an alternate sectionGoals may be documented in an alternate sectionGoals may be documented in an alternate sectionGoals may be documented in an alternate sectionGoals may be documented in an alternate sectionGoals may be documented in an alternate sectionGoals may be documented in an alternate sectionGoals may be documented in an alternate sectionGoals may be documented in an alternate sectionGoals may be documented in an alternate sectionGoals may be documented in an alternate sectionGoals may be documented in an alternate sectionGoals may be documented in an alternate sectionGoals may be documented in an alternate sectionGoals may be documented in an alternate sectionGoals may be documented in an alternate sectionGoals may be documented in an alternate section Care Teams (unrecognized sec tion and content) Team Status: Active Member Role Status Dates Dr. Kyara Odonnell MD Family Provider Active Dr. Kyara Odonnell MD Primary Care Provider Active Team Status: Active Member Role Status Dates Dr. Kyara Odonnell MD Primary Care Provider Active Dr. Tin Walters MD Emergency Provider Active Dr. Susanna Cabrera MD Admit Provider, Other Provider Active Dr. Raya Boo MD Other Provider Active Dr. Mukund Dalton MD Other Provider Active Dr. Mustapha Clement MD Attending Provider Active Team Status: Active Member Role Status Dates Dr. Kyara Odonnell MD Primary Care Provider Active Dr. Tin Walters MD Emergency Provider Active Dr. Susanna Cabrera MD Admit Provider, Other Provider Active Dr. Raya Boo MD Other Provider Active Dr. Mukund Dalton MD Attending Provider, Other Provi carmela Active Team Status: Inactive Member Role Status Dates Dr. Kyara Odonnell MD Primary Care Provider, Referrin g Provider Active Dr. Mustapha Clement MD Attending Provider Active Team Status: Inactive Member Role Status Dates Dr. Kyara Odonnell MD Primary Care Provider Active Dr. Tin Walters MD Emergency Provider Active Dr. Susanna Cabrera MD Admit Provider, Other Provider Active Dr. Raya Boo MD Other Provider Active Dr. Mukund Dalton MD Attending Provider Active Team Status: Inactive Member Role Status Dates Dr. Kyara Odonnell MD Primary Care Provider Active Dr. Virgil Bazzi DO Emergency Provider Active Team Status: Active Member Role Status Dates Dr. Kyara Odonnell MD Primary Care Provider Active Dr. Mustapha Clement MD Attending Provider Active Team Status: Inactive Member Role Status Dates Dr. Kyara Odonnell MD Primary Care Provider Active Dr. Virgil Bazzi DO Attending Provider, Emergency Pr ovider Active Team Status: Inactive Member Role Status Dates Dr. Kyara Odonnell MD Primary Care Provider Active Dr. Mustapha Clement MD Attending Provider Active Team Status: Active Member Role Status Dates Dr. Kyara Odonnell MD Primary Care Provider Active Dr. Mustapha Clement MD Attending Provider, Referring Pro vider Active Team Status: Active Member Role Status Dates Dr. Kyara Odonnell MD Primary Care Provider Active Dr. Collin Eddy MD Attending Provider, Referring Provider Active Team Status: Inactive Member Role Status Dates Dr. Kyara Odonnell MD Primary Care Provider Active Dr. Mustapha Clement MD Attending Provider, Referring Pro vider Active Team Status: Inactive Member Role Status Dates Dr. Kyara Odonnell MD Primary Care Provider, Referrin g Provider Active Debra GODFREY, PA Attending Provider Active Team Status: Inactive Member Role Status Dates Dr. Kyara Odonnell MD Primary Care Provider Active Debra GODFREY, PA Attending Provider, Referr ing Provider Active Team Status: Active Member Role Status Dates Dr. Kyara Odonnell MD Primary Care Provider Active Debra GODFREY, PA Attending Provider, Referr ing Provider Active Team Status: Active Member Role Status Dates Dr. Kyara Odonnell MD Primary Care Provider Active Self Referred Attending Provider Active Team Status: Inactive Member Role Status Dates Dr. Kyara Odonnell MD Primary Care Prov ider, Attending Provider, Referring Provider Active Team Status: Inactive Member Role Status Dates Dr. Kyara Odonnell MD Primary Care Provider, Attendin g Provider Active Team Status: Inactive Member Role Status Dates Dr. Kyara Odonnell MD Primary Care Provider Active Joe Merino MD Attending Provider, Referring Provide r Active Team Status: Inactive Member Role Status Dates Dr. Kyara Odonnell MD Primary Care Provider Active Joe Merino MD Attending Provider Active Team Status: Active Member Role Status Dates Dr. Kyara Odonnell MD Family Provider Active Joe Merino MD Primary Care Provider Active Team Status: Inactive Member Role Status Dates Dr. Kyara Odonnell MD Primary Care Provider Active Start: December 18, 2024 End: December 18, 2024 Dr. Kyara Odonnell MD Referring Provider Active Start: December 18, 2024 End: December 18, 2024 Debra GODFREY PA Attending Provider Active Start: December 18, 2024 End: December 18, 2024 Team Status: Inactive Member Role Status Bartolo Merion MD Primary Care Provider Active St art: February 25, 2025 End: February 25, 2025 Joe Merino MD Attending Provider Active Start : February 25, 2025 End: February 25, 2025 Joe Merino MD Referring Provider Active Start : February 25, 2025 End: February 25, 2025 Team Status: Inactive Member Role Status Bartolo Merino MD Primary Care Provider Active St art: March 27, 2025 End: March 27, 2025 Joe Merino MD Referring Provider Active Start : March 27, 2025 End: March 27, 2025 Debra GODFREY PA Attending Provider Active Start: March 27, 2025 End: March 27, 2025 Team Status: Inactive Member Role Status Bartolo Merino MD Primary Care Provider Active St art: March 27, 2025 End: March 27, 2025 Debra GODFREY PA Attending Provider Active Start: March 27, 2025 End: March 27, 2025 Debra GODFREY PA Referring Provider Active Start: March 27, 2025 End: March 27, 2025 FOR RECORDS PERTAINING TO PATIENTS WHO ARE [...] BE BASED ON THE PRIMARY CLINICAL RECORDS. [facility]. provides no warranty or guarantee of the accuracy or completeness of information in this document.
--- NOTE | 2025-05-07 12:45 | NEURO ---
NCS and/or EMG Patient Report Ordering Doctor: Lazaro Calles DATE OF SERVICE: 05/07/25 Sharon presents with complaints of numbness and tingling in the toes bilaterally. She reports is intermittent in nature. Electrodiagnostic findings: Peroneal motor nerve demonstrates normal distal latency, amplitude and conduction velocity bilaterally. Tibial motor response within normal limits bilaterally. Normal tibial and peroneal F?waves. Borderline prolonged H?reflex bilaterally. Sensory responses are within normal limits. Needle EMG testing was performed upper limbs. All muscles tested showed no evidence of denervation with normal motor unit action potentials. Electrodiagnostic impression: This is a normal study in the lower limbs. There is no electrodiagnostic evidence for peripheral neuropathy or lumbosacral radiculopathy. Multi Select Codes Neurology Neurology Interp Codes: 91062-10 Musc test done w/n test comp (interp) (2) and 06019-93 Nrv cndj test 11-12 studies (interp)
== END | disposition home or self-care (01) ==
LOC: PSN 08:19
PROVIDERS: PCP Family Medicine; Referring Provider Podiatrist; Visit Provider Podiatrist
DX: R20.0 Anesthesia of skin (principal); R20.2 Paresthesia of skin
CPT/HCPCS: 95886; 95912

== ENCOUNTER → 2025-05-28 | Outpatient (CLI) | payer MEDICARE, SELFPAY ==
[2022-12-19 10:30] VITALS: BMI 23.4
--- NOTE | 2025-05-28 11:52 | CT_ITS ---
PROCEDURE: BRAIN/HEAD WITHOUT CONTRAST 05/28/2025 REASON FOR EXAM: LEFT FACIAL NUMBNESS TECHNIQUE: BRAIN/HEAD WITHOUT CONTRAST Coronal and Sagittal reconstruction series were provided. One or more dose reduction techniques were used (e.g., Automated exposure control, adjustment of the mA and/or kV according to patient size, use of iterative reconstruction technique. 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 Sinuses/Mastoids: Clear at visualized levels Bones: No fracture or suspicious osseous lesion CT/Brain/Head without Contrast IMPRESSION: Age consistent changes, no acute findings Reading Location: [id number]
--- NOTE | 2025-05-28 11:52 | CT_ITS ---
PROCEDURE: BRAIN/HEAD WITHOUT CONTRAST 05/28/2025 REASON FOR EXAM: LEFT FACIAL NUMBNESS TECHNIQUE: BRAIN/HEAD WITHOUT CONTRAST Coronal and Sagittal reconstruction series were provided. One or more dose reduction techniques were used (e.g., Automated exposure control, adjustment of the mA and/or kV according to patient size, use of iterative reconstruction technique. 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 Sinuses/Mastoids: Clear at visualized levels Bones: No fracture or suspicious osseous lesion CT/Brain/Head without Contrast IMPRESSION: Age consistent changes, no acute findings Reading Location: [id number]
== END | disposition home or self-care (01) ==
LOC: CT 11:44
PROVIDERS: PCP Family Medicine
DX: R20.0 Anesthesia of skin (principal)
CPT/HCPCS: 70450

== ENCOUNTER → 2025-06-12 | Outpatient (CLI) | payer MEDICARE, SELFPAY ==
[2022-12-19 10:30] VITALS: BMI 23.4
[2025-06-12 13:06] LABS: Anion Gap 11 (5-15); BUN 22 mg/dL (4-19); BUN/Creat Ratio 22.5 RATIO (10-20); Calcium,Total 9.6 mg/dL (7.6-11.0); Carbon Dioxide 26.0 mmol/L (21.0-32.0); Chloride 104 mmol/L (98-108); Glucose 98 mg/dL (70-99); Potassium 4.3 mmol/L (3.3-5.1)
--- OUTSIDE RECORDS SUMMARY | 2025-06-12 18:28 | XMS RPT_ITS | CCD ---
Author Organization [facility] CliniSymo Care Team Providers Care Contact Lens Lathe Operator Name Role Phone EILEENAUBREE CRAWFORD Unavailable Unavailable JARETT WRIGHT Unavailable Unavailable Dr. [...] Dr. Collin Eddy Referring Provider Maxine GODFREY, EPIFANIO Balbuena Attending Provider Dr. Kyara Odonnell Primary Care Provider Dr. Collin Eddy Attending Provider Dr. Collin Eddy Referring Provider Dr. Tin Walters Emergency Provider Dr. [...] MD Referring Provider Debra Esparza Referring Provider Debra Esparza Attending Provider Stevan DPM, Dr. Willis Attending Provider Stevan DPSree, Dr. Willis Referring Provider Stevan DPSree, Dr. Willsi Other Provider Dr. Abigail Guerrero MD Attending Provider Bobby WOLFE-CYin Attending Provider Bobby WOLFE-CYin Referring Provider Lazaro Calles Attending Unavailable Lazaro Calles Referring Unavailable Joe Merino Primary Care Unavailable Debra Esparza Attending Unavail able Debra Esparza Referring Unavail able Angelique, Chalon Primary Care Unavailable Angelique, Chalon Attending Unavailable Angelique, Chalon Referring Unavailable Angelique, Chalon Primary Care Unavailable Jolliff, Kyara S Primary Care Unavailable Jolliff, Kyara S Attending Unavailable Jolliff, Kyara S Primary Care Unavailable Angelique, Chalon Attending Unavailable Angelique, Chalon Referring Unavailable Jolliff, Kyara S Primary Care Unavailable Jolliff, Kyara S Referring Unavailable Franko GODFREY, Jarrett Attending Unavailable Jolliff, Kyara S Primary Care Unavailable Jolliff, Kyara S Referring Unavailable Franko GODFREY, Jarrett Attending Unavailable Jolliff, Kyara S Primary Care Unavailable Debra Esparza Attending Unavail able Jolliff, Kyara S Referring Unavailable Maxine GODFREY, Debra Balbuena Attending Unavail able Angelique, Chalon Referring Unavailable Angelique, Chalon Primary Care Unavailable Lazaro Calles Consulting Unavailable Lazaro Calles Referring Unavailable Abigail Guerrero Attending Unavailable Angelique, Chalon Primary Care Unavailable Jolliff, Kyara S Primary Care Unavailable Maxine GODFREY, Debra Balbuena Attending Unavail able Jolliff, Kyara S Referring Unavailable Jolliff, Kyara S Primary Care Unavailable Angelique, Chalon Attending Unavailable Angelique, Chalon Referring Unavailable Shankel, Yin Attending Unavailable Shankel, Yin Referring Unavailable Angelique, Chalon Primary Care Unavailable Allergies Allergy Classification Reported Allergen(s) Allergy Type Date of Onset Reaction(s) Facility (1 source) penicillAMINE; Translations: [PENICILLAMINE] Drug Allergy 5 [facility] Repository (20 sources) Penicillins Allergy to substance 1 Unknown [facility] (20 sources) Jiaqsfy-Gky-Zyl Reductase Inhibitor Allergy to substance 3 Pain in joints [facility] Comment on above: pt gets generalized severe pain (3 sources) Metoprolol Drug Allergy 5 Other [facility] Comment on above: dizziness (1 source) Metoprolol Drug Allergy 5 [facility] Repository (1 source) Penicillins Drug allergy (disorder) 5 [facility] Repository (1 source) Axoisdc-Mny-Btb Reductase Inhibitor Drug allergy (disorder) 5 [facility] Repository Medications Current Medications Medication Drug Class(es) Dates Sig (Normalized) Sig (Original) amLODIPine 2.5 mg oral tablet (20 sources) Dihydropyridine Calcium Channel Shereen Start: 06-19-2024 End: 12-18-2024 take 1 tablet by mouth once daily Amlodipine 2.5 mg tablet Active 2.5 mg PO DAILY 90 December 18, 2024 3:24pm blood pressure Start: 01-12-2023 End: 06-19-2024 take 1 tablet by mouth once daily Amlodipine 5 mg tablet Discontinued 5 mg PO DAILY November 30, 2023 12:54pm June 19, 2024 2:49pm blood pressure Start: 12-08-2022 End: 01-12-2023 take 2 tablets by mouth once daily Amlodipine 5 mg tablet Discontinued 10 mg PO DAILY 90 December 19, 2022 11:26am January 12, 2023 3:21pm blood pressure Start: 12-08-2022 End: 01-12-2023 take 10 mg by mouth once daily Amlodipine Discontinued 10 MG PO DAILY December 19, 2022 11:26am January 12, 2023 3:21pm Start: 12-08-2022 End: 12-08-2022 take 1 tablet by mouth once daily Amlodipine 5 mg tablet Discontinued 5 mg PO DAILY 30 December 08, 2022 1:00am December 08, 2022 8:03pm aspirin 81 mg chewable tablet (20 sources) Platelet Aggregation Inhibitor, Nonsteroidal Anti-inflammatory Drug Start: 02-15-2014 take 1 tablet by mouth at bedtime Aspirin 81 MG tablet,chewable Active 81 mg PO AT BEDTIME February 15, 2014 12:00am heart health biotin 5 mg disintegrating oral tablet (1 source) Start: 12-08-2022 take 28781 ug by mouth once daily Biotin Active 41200 MCG PO DAILY December 08, 2022 12:00am calcium carbonate 1500 mg oral tablet (4 sources) Start: 06-19-2024 take 1 tablet by mouth once daily Calcium Carbonate (Calcium 600) 600 mg calcium (1,500 mg) tablet Active 600 mg PO DAILY June 19, 2024 12:00am cholecalciferol 0.025 mg oral tablet (4 sources) Vitamin D Start: 06-19-2024 take 1 tablet by mouth once daily Cholecalciferol (Vitamin D3) 25 mcg (1,000 unit) tablet Active 25 ug PO DAILY June 19, 2024 12:00am Coffee Xt-Phosphatidyl Serine (Neuriva Original) 100-100 mg capsule (3 sources) Start: 03-27-2025 Coffee Xt-Phosphatidyl Serine (Neuriva Original) 100-100 mg capsule Active NMA PO March 27, 2025 12:00am Collagen (4 sources) Start: 06-19-2024 take 1000 mg by mouth twice daily collagen Active 1000 mg PO TWICE A DAY June 19, 2024 12:00am Stephanie Fqrd-Aayqakda-Aeuqd enic Ac ([place] Oil) 1,000 MG capsule (2 sources) Start: 02-15-2014 take 1 capsule by mouth twice daily before mealtime Stephanie Axyh-Vlbopgwo-Lzlew enic Ac ([place] Oil) 1,000 MG capsule Active 1000 MG PO TWICE A DAY February 14, 2014 11:00pm Start: 02-15-2014 take 1 capsule by mo ut twice daily before mealtime Stephanie Dlex-Psnplwbm-Imicdsiim Ac ([place] Oil) 1,000 MG capsule Active 1000 MG PO TWICE A DAY February 15, 2014 12:00am Flaxseed Oil-[place] 3,6,9 (2 sources) Start: 02-15-2014 Flaxseed Oil-O jesus 3,6,9 Active 1 EACH PO TWICE A DAY February 14, 2014 11:00pm Start: 02-15-2014 Flaxseed Oil-O jesus 3,6,9 Active 1 EACH PO TWICE A DAY February 15, 2014 12:00am glucosamine sulfate 500 mg oral capsule (20 sources) Start: 02-15-2014 Glucosamine Sulfate 2kcl (Glucosamine Relief) 500 MG capsule Active 1000 mg PO TWICE A DAY February 15, 2014 12:00am supplement LORazepam 0.5 mg oral tablet (1 source) Benzodiazepine Start: 11-30-2017 take 0.5 mg by mouth three times daily as needed Lorazepam Active 0.5 MG PO 3 TIMES DAILY NEEDED November 30, 2017 1:00am 24 hr metoprolol succinate 25 mg extended release oral tablet (20 sources) beta-Adrenergic Shereen Start: 04-04-2025 take 1 tablet by mouth every twenty-four hours at bedtime Metoprolol Succinate 25 mg tablet extended release 24 hr Active 25 mg PO AT BEDTIME 90 April 04, 2025 12:00am Start: 12-10-2022 End: 02-28-2023 take 1 tablet by mouth once daily Metoprolol Succinate (Toprol Xl) 25 mg tablet extended release 24 hr Discontinued 25 mg PO DAILY 90 December 19, 2022 11:27am February 28, 2023 1:28pm On Hold: dizziness Multivitamin With Folic Acid (Thera) 1 TABLET tablet (20 sources) Start: 02-15-2014 take 1 tablet by mouth once daily Multivitamin With Folic Acid (Thera) 1 TABLET tablet Active 1 {tbl} PO DAILY February 15, 2014 12:00am supplement Start: 02-15-2014 take 1 tablet by lio th once daily Multivitamin With Folic Acid (Thera) 1 TABLET tablet Active 1 {tbl} PO DAILY February 15, 2014 12:00am Start: 02-15-2014 take 1 tablet by lio th once daily Multivitamin With Folic Acid (Thera) 1 TABLET tablet Active 1 TABLET PO DAILY February 14, 2014 11:00pm Start: 02-15-2014 take 1 tablet by lio th once daily Multivitamin With Folic Acid (Thera) [...] 15, 2014 12:00am June 19, 2024 2:25pm supplement Completed/Discontinued Medications Medication Drug Class(es) Dates Sig (Normalized) Sig (Original) 1 ml alirocumab 150 mg/ml auto-injector (16 sources) PCSK9 Inhibitor Start: 03-07-2023 End: 06-19-2024 Alirocumab (Praluent Pen) 150 mg/mL pen injector Discontinued 150 mg SC Q14D 2 March 07, 2023 12:00am June 19, 2024 2:26pm pt cannot tolerate statins or Zetia calcium citrate 1190 mg / cholecalciferol 0.005 mg oral tablet (20 sources) Vitamin D Start: 02-15-2014 End: 06-19-2024 Calcium Citrate-Vitamin D3 250 mg-5 mcg (200 unit) tablet Discontinued 1 {tbl} PO DAILY January 12, 2023 3:18pm June 19, 2024 2:21pm supplement Start: 02-15-2014 End: 01-12-2023 take 1 tablet [...] mg tablet Discontinued 75 mg PO DAILY 90 December 05, 2023 11:56am December 18, 2024 3:25pm Patient going out of state for 3 months dexamethasone 6 mg oral tablet (4 sources) Corticosteroid Start: 09-06-2024 End: 12-18-2024 take 1 tablet by mouth once daily Dexamethasone 6 mg tablet Discontinued 6 mg PO DAILY 5 September 06, 2024 12:00am December 18, 2024 2:56pm [place] 3-Lcf-Bnx-Fish Oil (4 sources) Start: 06-19-2024 End: 03-27-2025 [place] 3-Hjg-Yfd-Fish Oil (Fish Oil) 300-1,000 mg capsule Discontinued 1 NMA PO DAILY June 19, 2024 12:00am March 27, 2025 9:30am Start: 06-19-2024 [place] 3-Dha-Ep a-Fish Oil (Fish Oil) 300-1,000 mg capsule Active 1 NMA PO DAILY June 19, 2024 12:00am ezetimibe 10 mg oral tablet (16 sources) Dietary Cholesterol Absorption Inhibitor Start: 02-28-2023 End: 06-19-2024 take 1 tablet by mouth once daily Ezetimibe (Zetia) 10 mg tablet Discontinued 10 mg PO DAILY 30 February 28, 2023 12:00am June 19, 2024 2:26pm folate (4 sources) Start: 06-19-2024 End: 03-27-2025 take 1000 [...] mg tablet Discontinued 12.5 mg PO DAILY 90 December 05, 2023 11:56am December 18, 2024 3:25pm Patient going out of state for 3 months Start: 12-03-2017 End: 01-12-2023 Hydrochlorothiazide 25 MG ta blet Discontinued 12.5 mg PO DAILY 30 0 December 03, 2017 1:00am January 12, 2023 3:21pm Hypertension Essential (primary) hypertension Start: 12-03-2017 End: 01-12-2023 take 12.5 mg [...] 08, 2022 11:11am December 05, 2023 11:56am blood pressure Start: 11-30-2017 End: 12-08-2022 Losartan 50 MG tablet Discon tinued 1 {tbl} PO DAILY November 30, 2017 1:00am December 08, 2022 11:10am blood pressure MODUCHOL (20 sources) Start: 06-19-2024 End: 12-18-2024 [...] 12:00am Phytosterol-Pantethine (Cholestoff Complete) 300-100 mg capsule (3 sources) Start: 03-27-2025 take 1 capsule by mouth twice daily Phytosterol-Pantethine (Cholestoff Complete) 300-100 mg capsule Active 1 NMA PO TWICE A DAY March 27, 2025 12:00am potassium chloride 20 meq extended release oral tablet (20 sources) Start: 12-13-2022 End: 01-12-2023 take 1 tablet by mouth once daily Potassium Chloride 20 mEq tablet extended release Discontinued 20 meq PO DAILY 3 0 December 13, 2022 1:00am January 12, 2023 3:20pm just for 3 days predniSONE 20 mg oral tablet (20 sources) Start: 12-08-2022 End: 01-12-2023 take 1 tablet by mouth once daily Prednisone 20 mg Tablet Discontinued 20 mg PO DAILY December 08, 2022 1:00am January 12, 2023 3:20pm inflammation sulfamethoxazole 800 mg / trimethoprim 160 mg oral tablet (4 sources) Dihydrofolate Reductase Inhibitor Antibacterial, Sulfonamide Antimicrobial Start: 08-01-2024 End: 08-08-2024 Sulfamethoxazole-Trimeth oprim (Bactrim Ds) 800-160 mg tablet Discontinued 1 {tbl} PO Q12H 14 7 0 August 01, 2024 12:00am August 07, 2024 12:00am August 08, 2024 12:05am ticagrelor 90 mg oral tablet (20 sources) Start: 12-10-2022 End: 01-12-2023 take 1 tablet by mouth twice daily Ticagrelor (Brilinta) 90 mg Tablet Discontinued 90 mg PO TWICE A DAY 60 2 December 10, 2022 1:00am January 12, 2023 3:40pm vitamin b12 1 mg oral capsule (20 sources) Vitamin B12 Start: 11-30-2017 End: 03-27-2025 take 1 capsule by mouth once daily Cyanocobalamin (Vitamin B-12) 1,000 MCG capsule Discontinued 1000 ug PO DAILY November 30, 2017 1:00am March 27, 2025 9:27am supplement Problems Active Problems Problem Classification Problem Date Documented Da te Episodic/Chronic Acute myocardial infarction (20 sources) Myocardial infarction; Translations: [Non-ST elevation (NSTEMI) myocardial infarction] Chronic Cardiac dysrhythmias (20 sources) Irregular heart beat; Translations: [Cardiac arrhythmia, unspecified] 01-12-2023 Chronic Cardiac dysrhythmias (20 sources) Palpitations; Translations: [Palpitations] Onset: 03-27-2025 04-10-2023 Episodic Coagulation and hemorrhagic disorders (20 sources) Finding related to bruising; Translations: [Spontaneous [...] Translations: [Dehydration] 12-01-2017 Episodic Malaise and fatigue (16 sources) Fatigue; Translations: [Other fatigue] 03-13-2023 Episodic Nausea and vomiting (20 sources) Intractable nausea and vomiting; Translations: [Nausea with vomiting, unspecified] 11-30-2017 Episodic Nonspecific chest pain (20 sources) Chest pain; Translations: [Chest pain, unspecified] Episodic Other nervous system disorders (1 source) Other hereditary and idiopathic neuropathies; Translations: [Other hereditary and idiopathic neuropathies] Onset: 05-14-2025 Chronic Other nervous system disorders (1 source) Polyneuropathy, unspecified; Translations: [Polyneuropathy, unspecified] Onset: 05-14-2025 Chronic Other nervous system disorders (1 source) Anesthesia of skin; Translations: [Anesthesia of skin] Onset: 06-04-2025 Episodic Other skin disorders (4 sources) Ingrowing great toenail; Translations: [Ingrowing nail] 08-01-2024 Episodic Sprains and strains (16 sources) Strain of muscle at thorax level; Translations: [Strain of muscle and tendon of unspecified wall of thorax, initial encounter] 03-21-2023 Episodic Superficial injury; contusion (20 sources) Corneal abrasion; Translations: [Injury of conjunctiva and corneal abrasion without foreign body, unspecified eye, initial encounter] 11-30-2017 Episodic Unclassified (1 source) Other specified cough; Translations: [Other specified cough] Onset: 03-03-2025 Viral infection (4 sources) Disease caused by 2019-nCoV; Translations: [COVID-19] 09-06-2024 Episodic Past or Other Problems Problem Classification Problem Date Documented Da te Episodic/Chronic Other screening for suspected conditions (not mental disorders or infectious disease) (1 source) Encounter for screening mammogram for malignant neoplasm of breast; Translations: [Encounter for screening mammogram for malignant neoplasm of breast] Onset: 08-01-2024 Episodic Results Test Name Value Interpretation Reference Range Facility Brain/Head without Contrasto n 05-28-2025 Brain/Head without Contrast [facility] Imaging Services [address] [place] [id number] Brain/Head without Contrast MR#: [id number] Acct: [id number] Name: SHARON LOVE Rep #: [id number] : 1940 F 84 From: Chu Juárez MD PCP: Dr. Joe Merino MD Status: REG CLI Study: Brain/Head without Contrast Date of Exam: 01/21 Exam# [id number] Ordering Dr: Yni Rosales NP, NP PROCEDURE: BRAIN/HEAD WITHOUT CONTRAST 05/28/2025 REASON FOR EXAM: LEFT FACIAL NUMBNESS TECHNIQUE: BRAIN/HEAD WITHOUT CONTRAST Coronal and Sagittal reconstruction series were provided. One or more dose reduction techniques were used (e.g., Automated exposure control, adjustment of the mA and/or kV according to patient size, use of iterative reconstruction technique. 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 Sinuses/Mastoids: Clear at visualized levels Bones: No fracture or suspicious osseous lesion CT/Brain/Head without Contrast IMPRESSION: Age consistent changes, no acute findings Reading Location: [id number] CC: Yin Rosales; Dr. Joe Merino MD Ship Captain: Signed Normal [facility] NCS and/or EMG Patienton NCS and/or EMG Patient [facility] Pulmonary Services/Neurology [address] [place] [address] MR#: [id number] Acct: [id number] Name: SHARON LOVE Rep #: [id number] : 1940 84 From: Abigail Guerrero MD Referring Dr: Lazaro Calles DPM Status: REG C LI Location: [facility] Date: 05/07/25 Sex: F C NCS and/or EMG Patient Report Ordering Doctor: Lazaro Calles DATE OF SERVICE: 05/07/25 Sharon presents with complaints of numbness and tingling in the toes bilaterally. She reports is intermittent in nature. Electrodiagnostic findings: Peroneal motor nerve demonstrates normal distal latency, amplitude and conduction velocity bilaterally. Tibial motor response within normal limits bilaterally. Normal tibial and peroneal F???waves. Borderline prolonged H???reflex bilaterally. Sensory responses are within normal limits. Needle EMG testing was performed upper limbs. All muscles tested showed no evidence of denervation with normal motor unit action potentials. Electrodiagnostic impression: This is a normal study in the lower limbs. There is no electrodiagnostic evidence for peripheral neuropathy or lumbosacral radiculopathy. Multi Select Codes Neurology Neurology Interp Codes: 39809-57 Musc test done w/n test comp (interp) (2) and 26255-29 Nrv cndj test 11-12 studies (interp) 05/07/25 1247 Date Abigail Guerrero MD CC: IRENE Calles; Dr. Abigail Guerrero MD; Dr. Joe Merino MD Date Dictated: 05/07/251244 Date Transcribed: 05/07/251244 Ship Captain: AA Signed Normal [facility] Anion gap in Serum or Plasma Ordered By: Debra Goodman on 03-27-2025 Anion gap [Moles/Vol] 13 mmol/L 5-15 [facility] BUN/creatinine ratioOrdered By: Debar Goodman on 03-27-2025 Urea nitrogen/Creatinine [Mass ratio] 17.9 mg/mg 10-20 [facility] Bilirubin, totalOrdered By: Debra Goodman on 03-27-2025 Bilirubin [Mass/Vol] 0.88 mg/dL 0.00-1.30 [facility] Carbon dioxide, total [Moles /volume] in Central venous bloodOrdered By: Debra Goodman on 03-27-2025 CO2 [Moles/Vol] 23.2 mmol/L 21.0-32.0 [facility] Cardiology Visit Reporton Cardiology Visit Report [facility] [address] [place] [address] OFFICE VISIT Date of Service: 03/27/25 MR#: [id number] Acct: [id number] Name: SHARON LOVE Rep #: [id number] : 1940 Provider: EPIFANIO Lane Age/Sex: 84/F Location[facility] Status: Signed HPI HPI History of Present Illness Details: Sharon Love is an 84 year old female that presented to [facility] on December 08, 2022 with chest discomfort. [...] notes that prior to her going to [place] she was having increased HR. They wake [...] Dr. Malave. She has been going to [employer] without issues. 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 [facility] Medical History Abnormal bruising Myocardial infarct Essential [...] Negative naus (more content not included)... Normal [facility] Chloride assayOrdered By: Ashley Goodman on 03-27-2025 Chloride [Moles/Vol] 105 mmol/L 98-108 [facility] Comprehensive Metabolic Prof ilon 03-27-2025 Albumin [Mass/Vol] 4.3 g/dL Normal 3.4-4.8 [facility] Comment on above: Performed By: #### L 500.4050, L501.5200, L501.9520 #### [facility] [address] [place], [address] Albumin/Globulin [Mass ratio] 1.7 {ratio} Normal 0.9-2.4 [facility] Comment on above: Performed By: #### L 500.4050, L501.5200, L501.9520 #### [facility] [address] [place], [address] ALK PHOS 68 U/L Normal 35-104 [facility] Comment on above: Performed By: #### L 500.4050, L501.5200, L501.9520 #### [facility] [address] [place], [address] ALT [Catalytic activity/Vol] 15 U/L Normal <=34 [facility] Comment on above: Performed By: #### L 500.4050, L501.5200, L501.9520 #### [facility] [address] [place], [address] AST [Catalytic activity/Vol] 27 U/L Normal <=31 [facility] Comment on above: Performed By: #### L 500.4050, L501.5200, L501.9520 #### [facility] [address] [place], [address] Bilirubin [Mass/Vol] 0.88 mg/dL Normal 0.00-1.30 [facility] Comment on above: Performed By: #### L 500.4050, L501.5200, L501.9520 #### [facility] [address] [place], [address] BUN/CRE 17.9 RATIO Normal 10-20 [facility] Comment on above: Performed By: #### L 500.4050, L501.5200, L501.9520 #### [facility] [address] [place], [address] Calcium [Mass/Vol] 9.2 mg/dL Normal 7.6-11.0 [facility] Comment on above: Performed By: #### L 500.4050, L501.5200, L501.9520 #### [facility] [address] [place], [address] Chloride [Moles/Vol] 105 mmol/L Normal 98-108 [facility] Comment on above: Performed By: #### L 500.4050, L501.5200, L501.9520 #### [facility] [address] [place], [address] CO2 [Moles/Vol] 23.2 mmol/L Normal 21.0-32.0 [facility] Comment on above: Performed By: #### L 500.4050, L501.5200, L501.9520 #### [facility] [address] [place], [address] Creatinine [Mass/Vol] 0.96 mg/dL Normal 0.70-1.20 [facility] Comment on above: Performed By: #### L 500.4050, L501.5200, L501.9520 #### [facility] [address] [place], [address] GAP 13 Normal 5-15 [facility] Comment on above: Performed By: #### L 500.4050, L501.5200, L501.9520 #### [facility] [address] [place], [address] GFR/1.73 sq M.predicted among non-blacks MDRD (S/P/Bld) [Vol rate/Area] 59 mL/min/{1.73_m2} Low >60 [facility] Comment on above: Result Comment: mL/m in/1.73m2 CKD-EPI Creatinine Equation (2020) Performed By: #### L 500.4050, L501.5200, L501.9520 #### [facility] [address] [place], [address] Globulin (S) [Mass/Vol] 2.6 g/dL Normal 2.2-4.2 [facility] Comment on above: Performed By: #### L 500.4050, L501.5200, L501.9520 #### [facility] [address] [place], [address] Glucose [Mass/Vol] 103 mg/dL High 70-99 [facility] Comment on above: Performed By: #### L 500.4050, L501.5200, L501.9520 #### [facility] [address] [place], [address] Potassium [Moles/Vol] 3.7 mmol/L Normal 3.3-5.1 [facility] Comment on above: Performed By: #### L 500.4050, L501.5200, L501.9520 #### [facility] [address] [place], [address] Sodium [Moles/Vol] 141 mmol/L Normal 133-145 [facility] Comment on above: Performed By: #### L 500.4050, L501.5200, L501.9520 #### [facility] [address] [place], [address] T PROT 6.8 g/dL Normal 5.9-8.4 [facility] Comment on above: Performed By: #### L 500.4050, L501.5200, L501.9520 #### [facility] [address] [place], [address] Urea nitrogen [Mass/Vol] 17 mg/dL Normal 4-19 [facility] Comment on above: Performed By: #### L 500.4050, L501.5200, L501.9520 #### [facility] [address] [place], [address] Glomerular filtration rate ( GFR) estimation/1.73 sq m using serum, plasma, or whole bOrdered By: Debra Goodman on 03-27-2025 GFR/1.73 sq M.predicted among non-blacks MDRD (S/P/Bld) [Vol rate/Area] 59 mL/min/{1.73_m2} Low >60 [facility] Comment on above: mL/min/1.73m2 CKD-EP I Creatinine Equation (2020) Laboratory - Chemistry and C hemistry - challengeOrdered By: Debra Goodman on 03-27-2025 AST [Catalytic activity/Vol] 27 U/L <32 [facility] Magnesiumon 03-27-2025 Magnesium [Mass/Vol] 2.3 mg/dL High 1.5-2.2 [facility] Comment on above: Performed By: #### L 500.4050, L501.5200, L501.9520 #### [facility] [address] [place], [address] Magnesium measurement (mass/ volume)Ordered By: Debra Goodman on 03-27-2025 Magnesium (Unsp spec) [Mass/Vol] 2.3 mg/dL High 1.5-2.2 [facility] Potassium measurement (mass/ volume)Ordered By: Debra Goodman on 03-27-2025 Potassium (Unsp spec) [Mass/Vol] 3.7 mmol/L 3.3-5.1 [facility] Serum creatinine measurement (mass/volume)Ordered By: Debra Goodman on 03-27-2025 Creatinine [Mass/Vol] 0.96 mg/dL 0.70-1.20 [facility] Serum globulin measurementOr dered By: Debra Goodman on 03-27-2025 Globulin (S) [Mass/Vol] 2.6 g/dL 2.2-4.2 [facility] Serum glucose measurement (m ass/volume)Ordered By: Debra Goodman on 03-27-2025 Glucose [Mass/Vol] 103 mg/dL High 70-99 [facility] Serum or plasma alanine sepulveda otransferase (ALT) measurementOrdered By: Debra Goodman on 03-27-2025 ALT [Catalytic activity/Vol] 15 U/L <35 [facility] Serum or plasma albumin tyron urement (mass/volume)Ordered By: Debra Goodman on 03-27-2025 Albumin [Mass/Vol] 4.3 g/dL 3.4-4.8 [facility] Serum or plasma albumin/glob ulin mass ratioOrdered By: Debra Goodman on 03-27-2025 Albumin/Globulin [Mass ratio] 1.7 {ratio} 0.9-2.4 [facility] Serum or plasma alkaline reva sphatase measurementOrdered By: Debra Goodman on 03-27-2025 ALP [Catalytic activity/Vol] 68 U/L 35-104 [facility] Serum or plasma calcium tyron urement (mass/volume)Ordered By: Debra Goodman on 03-27-2025 Calcium [Mass/Vol] 9.2 mg/dL 7.6-11.0 [facility] Serum or plasma urea nitroge n measurement (mass/volume)Ordered By: Debra Goodman on 03-27-2025 Urea nitrogen [Mass/Vol] 17 mg/dL 4-19 [facility] Sodium levelOrdered By: Kain Davidonnell on 03-27-2025 Sodium [Moles/Vol] 141 mmol/L 133-145 [facility] TSH DL <= 0.005 mIU/L QnOrde red By: Debra Guyell on 03-27-2025 TSH Qn 2.270 uIU/mL 0.300-4.200 [facility] Thyroid Stim Hormone (TSH)on 03-27-2025 TSH 2.270 uIU/mL Normal 0.300-4.200 [facility] Comment on above: Performed By: #### L 500.4050, L501.5200, L501.9520 #### [facility] [address] [place], [place], [id number] Total proteinOrdered By: Donato shaikh Maxine on 03-27-2025 Protein [Mass/Vol] 6.8 g/dL 5.9-8.4 [facility] Chest PA and Lateralon 02-25 Chest PA and Lateral [facility] Imaging Services [address] [place], [place] [address] Chest PA and Lateral MR#: [id number] Acct: [id number] Name: SHARON LOVE Rep #: [id number] : 1940 F 84 From: Huy Pimentel MD PCP: Dr. Joe Merino MD Status: REG CLI Study: Chest PA and Lateral Date of Exam: 02/25/25 Exam# [id number] Ordering Dr: Joe Merino MD PROCEDURE: CHEST [...] No evidence of acute disease. Reading Location: [id number] CC: Dr. Joe Merino MD Ship Captain: Signed Normal [facility] Cardiology Visit Reporton Cardiology Visit Report [facility] [address] [place] [address] OFFICE VISIT Date of Service: 12/18/24 MR#: [id number] Acct: [id number] Name: SHARON LOVE Rep #: [id number] : 1940 Provider: EPIFANIO Lane Age/Sex: 84/F Location: [facility] Status: Signed HPI HPI History of Present Illness Details: Sharon Love is an 84 year old female that presented to [facility] on December 08, 2022 with chest discomfort. [...] symptoms of claudication. She is going to [place] for a month. Intake Vital Signs 06/19/24 [...] FU Is patient in pain?: No Allergies Ihjrriy-CJU-JjY Reductase Inhibitor Allergy (Severe, Verified 12/18/24 13:56) Pain in joints Penicillins Allergy (Verified 12/18/24 13:56) Unknown Medications ???Medication ???Instructions ???Recorded ???Confirmed ???Type aspirin 81 mg chewable tablet 81 mg PO QHS heart health 02/15/14 12/18/24 History glucosamine sulfate 2KCl 500 [...] mg PO DAILY 06/19/24 12/18/24 History omega 7-gkd-dpf-fish oil 300 1 cap PO DAILY 06/19/24 [...] 1 yr follow up no acute concerns [facility] Medical History Abnormal bruising Myocardial infarct Essential [...] for headache(s), (more content not included)... Normal [facility] Urgent Care Visit Reporton 1 Urgent Care Visit Report [facility] [address], [address] [place] [address] OFFICE VISIT Date of Service: 09/06/24 MR#: [id number] Acct: [id number] Name: SHARON LOVE Rep #: [id number] : 1940 Provider: EPIFANIO France Age/Sex: 83/F Location: [facility] Status: Signed Intake Vital Signs 06/19/24 14:17 09/06/24 16:24 Height 4 ft 11 in BP 116/74 Blood Pressure Location Lt brachial Position Sitting Respiration 12 Pulse 113 H Pulse Source Monitor Temp 98.4 F Temp Source Temporal Pulse Oximetry (%) 98 Oxygen Delivery Method room air Intake Visit Reasons: exposed to covid chills, cough Allergies Nltpeux-LOM-QnI Reductase Inhibitor Allergy (Severe, Verified 09/06/24 16:25) Pain in joints Penicillins Allergy (Verified 09/06/24 16:25) Unknown Have you fallen in the past year?: No PFS Medical History Abnormal bruising Myocardial infarct Essential [...] Exam Const General: cooperative and well developed HENND Head: normal to inspection and atraumatic Ears: [...] fallen in the past year?: No 09/06/24 1648 Date Jarrett Zavalaigner Signature: Date (if applicable) CC: Normal [facility] Urgent Care Visit Reporton 0 08-01-2024 Urgent Care Visit Report [facility] [address], [address] [place] [address] OFFICE VISIT Date of Service: 08/01/24 MR#: [id number] Acct: [id number] Name: SHARON LOVE Rep #: [id number] : 1940 Provider: EPIFANIO France Age/Sex: 83/F Location: [facility] Status: Signed Intake Vital Signs 06/19/24 14:17 [...] L BIG TOE Chief Complaint: toe 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 [place], [place], [id number] CA,Total 9.1 mg/dL Normal 8.5-10.1 [facility] Comment on above: Order Comment: PER O [facility] NURSE-TO DO WRITTEN ORDER-OTHER TESTS ARE Performed By: #### L 500.2500 ####[facility] [address] [place], [place], [id number] Chloride [Moles/Vol] 106 mmol/L Normal 98-107 [facility] Comment on above: Order Comment: PER O FFICE NURSE-TO DO WRITTEN ORDER-OTHER TESTS ARE Performed By: #### L 500.2500 ####[facility] [address] [place], [address] CO2 [Moles/Vol] 26.0 mmol/L Normal 21.0-32.0 [facility] Comment on above: Order Comment: PER O FFICE NURSE-TO DO WRITTEN ORDER-OTHER TESTS ARE Performed By: #### L 500.2500 ####[facility] [address] [place], [address] Creatinine [Mass/Vol] 0.94 mg/dL Normal 0.55-1.02 [facility] Comment on above: Order Comment: PER O FFICE NURSE-TO DO WRITTEN ORDER-OTHER TESTS ARE Result Comment: The validity of the calculated GFR GFRAA in patients over 70 years has not been determined. Clinical correlation is essential. Performed By: #### L 500.2500 ####[facility] [address] [place], [address] EST GFR - AA 73 mL/min Normal >60 [facility] Comment on above: Order Comment: PER O FFICE NURSE-TO DO WRITTEN ORDER-OTHER TESTS ARE Result Comment: Afri can Cambodian GFR Calc Performed By: #### L 500.2500 ####[facility] [address] [place], [address] GAP 8 Normal 5-15 [facility] Comment on above: Order Comment: PER O FFICE NURSE-TO DO WRITTEN ORDER-OTHER TESTS ARE Performed By: #### L 500.2500 ####[facility] [address] [place], [address] GFR/1.73 sq M.predicted among non-blacks MDRD (S/P/Bld) [Vol rate/Area] 60 mL/min/{1.73_m2} Normal >60 [facility] Comment on above: Order Comment: PER O FFICE NURSE-TO DO WRITTEN ORDER-OTHER TESTS ARE Result Comment: Non- GFR Calc Performed By: #### L 500.2500 ####[facility] [address] [place], [address] Glucose [Mass/Vol] 98 mg/dL Normal 74-106 [facility] Comment on above: Order Comment: PER O FFICE NURSE-TO DO WRITTEN ORDER-OTHER TESTS ARE Performed By: #### L 500.2500 ####[facility] [address] [place], [address] Potassium [Moles/Vol] 3.6 mmol/L Normal 3.5-5.1 [facility] Comment on above: Order Comment: PER O FFICE NURSE-TO DO WRITTEN ORDER-OTHER TESTS ARE Performed By: #### L 500.2500 ####[facility] [address] [place], [address] Sodium [Moles/Vol] 140 mmol/L Normal 136-145 [facility] Comment on above: Order Comment: PER O FFICE NURSE-TO DO WRITTEN ORDER-OTHER TESTS ARE Performed By: #### L 500.2500 ####[facility] [address] [place], [address] Urea nitrogen [Mass/Vol] 19 mg/dL High 7-18 [facility] Comment on above: Order Comment: PER O FFICE NURSE-TO DO WRITTEN ORDER-OTHER TESTS ARE Performed By: #### L 500.2500 ####[facility] [address] [place], [address] SCRN MAMM (CAD)W/GREGORY BILATo n 07-01-2024 SCRN MAMM (CAD)W/GREGORY BILAT [facility] Imaging Services [address] [place] [address] SCRN MAMM (CAD)W/GREGORY BILAT MR#: [id number] Acct: [id number] Name: SHARON LOVE Rep #: [id number] : 1940 F 83 From: Aren fountain MD PCP: Dr. Kyara Odonnell MD Status: REG CLI Study: SCRN MAMM (CAD)W/GREGORY BILAT Date of Exam: 04/19 Exam# [id number] Ordering Dr: Kyara Odonnell MD [id number] MAMMOGRAPHY - BILATERAL SCREENING REASON FOR EXAM: [...] delay biopsy of a clinically suspicious abnormality. [id number] Electronically Signed: Aren Meadows MD at 9:09 EDT , CC: Dr. Kyara Odonnell MD Ship Captain: Signed Normal [facility] Cardiology Visit Reporton Cardiology Visit Report [facility] [address] [place] [address] OFFICE VISIT Date of Service: 06/19/24 MR#: [id number] Acct: [id number] Name: SHARON LOVE Rep #: [id number] : 1940 Provider: EPIFANIO Lane Age/Sex: 83/F Location: [facility] Status: Signed HPI HPI History of Present Illness Details: Sharon Love is an 83 year old female that presented to [facility] on December 08, 2022 with chest discomfort. [...] by: Is patient in pain?: No Allergies Eqlrkgb-HGN-ZoC Reductase Inhibitor Allergy (Severe, Verified 06/19/24 14:20) [...] 1,000 mg PO DAILY 06/19/24 History omega 9-lsq-xot-fish oil 300 1 cap PO DAILY 06/19/24 [...] Positive for (more content not included)... Normal [facility] Cerv Spine 4 or 5 Viewson Cerv Spine 4 or 5 Views [facility] Imaging Services [address] [place] [id number] Cerv Spine 4 or 5 Views MR#: [id number] Acct: [id number] Name: SHARON LOVE Rep #: [id number] : 1940 F 83 From: Elijah Bertrand MD PCP: Dr. Kyara Odonnell MD Status: REG CLI Study: Cerv Spine 4 or 5 Views Date of Exam: 06/14/24 Exam# [id number] Ordering Dr: Joe Merino MD [id number] STUDY: X-RAY - CERVICAL SPINE REASON FOR [...] Kyara Odonnell MD; Dr. Joe Merino MD Ship Captain: Signed Normal [facility] Basophil percentageOrdered B y: Joe Merino on 03-14-2024 Potassium [Moles/Vol] 4.2 mmol/L 3.5-5.1 [facility] Basophil percentageOrdered B y: Joe Merino on 03-06-2024 Potassium [Moles/Vol] 3.6 mmol/L 3.5-5.1 [facility] Iron measurement (mass/mass) Ordered By: Joe Merino on 03-06-2024 Iron (Unsp spec) [Mass/Mass] 59 ug/dL 50-170 [facility] - Chemistry and C hemistry - challengeOrdered By: Joe Merino on 03-06-2024 Ferritin [Mass/Vol] 153 ng/mL 8-252 [facility] No Panel InformationOrdered By: Joe Merino on 03-06-2024 Folate 62.60 ng/mL 3.1-55.4 [facility] Comment on above: Slight Hemolysis, Re sult may be falsely increased. Total Iron Binding Capacity 309 ug/dL 250-450 [facility] Vitamin B12 Level > 2000 pg/mL 211-911 [facility] Serum or plasma iron saturat ion measurement (mass fraction)Ordered By: Joe Merino on 03-06-2024 Iron saturation [Mass fraction] 19.1 % 15.0-55.0 [facility] Absolute lymphocyte countOrd ered By: Kyara Dukesjoana on 01-30-2024 Lymphocytes Auto (Unsp spec) [#/Vol] 1.74 10*3/uL 0.83-4.51 [facility] Automated lymphocyte count a s percentage of total leukocytesOrdered By: Kyara Odonnell on 01-30-2024 Lymphocytes/100 WBC Auto (Unsp spec) 30.9 % 19-41 [facility] Basophil percentageOrdered B y: Kyara Odonnell on 01-30-2024 Basophils/100 WBC (Bld) 0.9 % 0-1 [facility] Chloride [Moles/Vol] 107 mmol/L 98-107 [facility] Cholesterol [Mass/Vol] 144 mg/dL <200 [facility] Comment on above: <200 mg/dL Desirable 200-240 mg/dL Borderline >240 mg/dL High Risk Eosinophils/100 WBC (Bld) 3.4 % 0-5 [facility] Glucose [Mass/Vol] 91 mg/dL 74-106 [facility] Hemoglobin (Bld) [Mass/Vol] 12.7 g/dL 12.0-15.0 [facility] Monocytes/100 WBC (Bld) 11.5 % 0-10 [facility] Neutrophils (Bld) [#/Vol] 3.0 10*3/uL 2.0-7.7 [facility] Neutrophils/100 WBC (Bld) 53.1 % 47-70 [facility] Potassium [Moles/Vol] 3.3 mmol/L 3.5-5.1 [facility] Sodium [Moles/Vol] 142 mmol/L 136-145 [facility] Triglyceride [Mass/Vol] 160 mg/dL <199 [facility] Comment on above: The drugs N-Acetylcy steine and Metamizole may falsely depress this assay.Serum Triglycerides Reference Interval Normal <150 mg/dL Borderline high 150 - 199 mg/dL High 200 - 499 mg/dL Very High > or = 500 mg/dL WBC (Bld) [#/Vol] 5.6 10*3/uL 4.4-11.0 [facility] Determination of erythrocyte mean corpuscular volume (MCV)Ordered By: Kyara Odonnell on 01-30-2024 MCV (RBC) [Entitic vol] 94.7 fL 81-99 [facility] Erythrocyte distribution wid th ratioOrdered By: Kyara Odonnell on 01-30-2024 Erythrocyte distribution width (RBC) [Ratio] 13.1 % 11.6-14.6 [facility] Erythrocyte distribution wid th standard deviationOrdered By: Kyara Odonnell on 01-30-2024 Erythrocyte distribution width (RBC) [Entitic vol] 45.8 fL 35.1-43.9 [facility] Hematocrit Auto (Bld) [Volum e fraction]Ordered By: Kyara Odonnell on 01-30-2024 Hematocrit (Bld) [Volume fraction] 39.0 % 37-47 [facility] Immature granulocytes/100 WB C Auto (Bld)Ordered By: Kyara Odonnell on 01-30-2024 Immature granulocytes/100 WBC (Bld) 0.200 % 0.0-0.9 [facility] Comment on above: IG% - Immature Granu locytes (promyelocytes, myelocytes and metamyelocytes) > 1% indicates that a LEFT SHIFT is Present. Laboratory - Chemistry and C hemistry - challengeOrdered By: Kyara Odonnell on 01-30-2024 ALT [Catalytic activity/Vol] 21 U/L 13-56 [facility] Cholesterol in HDL [Mass/Vol] 48 mg/dL >40 [facility] Comment on above: The drugs N-Acetylcy steine and Metamizole may falsely depress this assay. Reference Range HDL <40 mg/dL Low HDL Cholesterol HDL >or= 60 mg/dL High HDL Cholesterol Cholesterol in LDL [Mass/Vol] 64 mg/dL 0-130 [facility] CO2 [Moles/Vol] 27.0 mmol/L 21.0-32.0 [facility] Urea nitrogen/Creatinine [Mass ratio] 18.9 mg/mg 10-20 [facility] Laboratory - Hematology and Cell countsOrdered By: Kyara Odonnell on 01-30-2024 MCH (RBC) [Entitic mass] 30.8 pg 27.0-32.0 [facility] MCHC (RBC) [Mass/Vol] 32.6 g/dL 32-36 [facility] Nucleated RBC/100 WBC (Bld) [Ratio] 0 % 0-5 [facility] Platelet mean volume (Bld) [Entitic vol] 9.8 fL 6.2-12.0 [facility] Platelets (Bld) [#/Vol] 255 10*3/uL 150-450 [facility] No Panel InformationOrdered By: Kyara Odonnell on 01-30-2024 Estimated GFR (MDRD) Amer 77 mL/min >60 [facility] Comment on above: GFR Calc Estimated GFR (MDRD) Non-Af Amer 64 mL/min >60 [facility] Comment on above: Non- GFR Calc Vitamin D 25-Hydroxy 48.2 ng/mL [facility] Comment on above: Vitamin D 25(OH) Sta tus Range Deficiency <20 ng/mL (50nmol/L) Insufficiency 20 - 30 ng/mL (50 - 75 nmol/L) Sufficiency 30 - 100 ng/mL (75 - 250 nmol/L) Toxicity >100 ng/mL (>250 nmol/L) VLDL Cholesterol 32 mg/dL 5-40 [facility] RBC Auto (Bld) [#/Vol]Ordere d By: Kyara Odonnell on 01-30-2024 RBC (Bld) [#/Vol] 4.12 10*6/uL 4.2-5.4 [facility] Serum or plasma calcium tyron urement (mass/volume)Ordered By: Kyara Odonnell on 01-30-2024 Calcium [Mass/Vol] 9.0 mg/dL 8.5-10.1 [facility] Serum or plasma creatinine m easurement (mass/volume)Ordered By: Kyara Odonnell on 01-30-2024 Creatinine [Mass/Vol] 0.90 mg/dL 0.55-1.02 [facility] Comment on above: The validity of the calculated GFR & GFRAA in patients over 70 years has not been determined. Clinical correlation is essential. Serum or plasma urea nitroge n measurement (mass/volume)Ordered By: Kyara Odonnell on 01-30-2024 Urea nitrogen [Mass/Vol] 17 mg/dL 7-18 [facility] Thin prep Papanicolaou smear with manual screeningOrdered By: Kyara Odonnell on 01-30-2024 Protein (U) [Mass/Vol] 9.5 mg/dL 0.0-11.8 [facility] Thin prep Papanicolaou smear with manual screening 23 U/L 15-37 [facility] Thin prep Papanicolaou smear with manual screening 8 5-15 [facility] Urine creatinine measurement (mass/volume)Ordered By: Kyara Odonnell on 01-30-2024 Creatinine (U) [Mass/Vol] 72.00 mg/dL NO RANGE EST. [facility] Urine protein/creatinine mas s ratioOrdered By: Kyara Odonnell on 01-30-2024 Protein/Creatinine (U) [Mass ratio] 132 mg/g CRE 0-200 [facility] Basophil percentageOrdered B y: Kyara Odonnell on 07-25-2023 Cholesterol [Mass/Vol] 200 mg/dL <200 [facility] Comment on above: <200 mg/dL Desirable 200-240 mg/dL Borderline >240 mg/dL High Risk Triglyceride [Mass/Vol] 357 mg/dL <199 [facility] Comment on above: The drugs N-Acetylcy steine and Metamizole may falsely depress this assay.Serum Triglycerides Reference Interval Normal <150 mg/dL Borderline high 150 - 199 mg/dL High 200 - 499 mg/dL Very High > or = 500 mg/dL Laboratory - Chemistry and C hemistry - challengeOrdered By: Kyara Odonnell on 07-25-2023 ALT [Catalytic activity/Vol] 24 U/L 13-56 [facility] Serum or plasma cholesterol in HDL measurement (mass/volume)Ordered By: Kyara Odonnell on 07-25-2023 Cholesterol in HDL [Mass/Vol] 41 mg/dL >40 [facility] Comment on above: The drugs N-Acetylcy steine and Metamizole may falsely depress this assay. Reference Range HDL <40 mg/dL Low HDL Cholesterol HDL >or= 60 mg/dL High HDL Cholesterol Serum or plasma cholesterol in VLDL measurement (mass/volume)Ordered By: Kyara Odonnell on 07-25-2023 Cholesterol in VLDL [Mass/Vol] 71 mg/dL 5-40 [facility] Serum or plasma low density lipoprotein (LDL) cholesterol measurement (mass/volume)Ordered By: Kyara Odonnell on 07-25-2023 Cholesterol in LDL [Mass/Vol] 88 mg/dL 0-130 [facility] Thin prep Papanicolaou smear with manual screeningOrdered By: Kyara Odonnell on 07-25-2023 Thin prep Papanicolaou smear with manual screening 22 U/L 15-37 [facility] Absolute lymphocyte countOrd ered By: Virgil Bazzi on 03-21-2023 Lymphocytes Auto (Unsp spec) [#/Vol] 2.75 10*3/uL 0.83-4.51 [facility] Basophil percentageOrdered B y: Virgil Bazzi on 03-21-2023 Basophil percentage 0 SEEN /hpf 0-5 [facility] Basophils/100 WBC (Bld) 0.9 % 0-1 [facility] Chloride [Moles/Vol] 106 mmol/L 98-107 [facility] Eosinophils/100 WBC (Bld) 2.9 % 0-5 [facility] Glucose [Mass/Vol] 113 mg/dL 74-106 [facility] Comment on above: Fasting Glucose resu lt from 100 to 125 mg/dL suggests IMPAIRED HOMEOSTASIS per A.D.A. criteria. Neutrophils (Bld) [#/Vol] 3.2 10*3/uL 2.0-7.7 [facility] Neutrophils/100 WBC (Bld) 46.7 % 47-70 [facility] Potassium [Moles/Vol] 3.4 mmol/L 3.5-5.1 [facility] Sodium [Moles/Vol] 138 mmol/L 136-145 [facility] WBC (Bld) [#/Vol] 6.9 10*3/uL 4.4-11.0 [facility] Bilirubin Test strip Ql (U)O rdered By: Virgil Bazzi on 03-21-2023 Bilirubin Ql (U) Negative Negative [facility] Blood erythrocytes count (nu mber/volume)Ordered By: Virgil Bazzi on 03-21-2023 RBC (Bld) [#/Vol] 4.84 10*6/uL 4.2-5.4 [facility] Blood hemoglobin measurement (mass/volume)Ordered By: Virgil Bazzi on 03-21-2023 Hemoglobin (Bld) [Mass/Vol] 15.0 g/dL 12.0-15.0 [facility] Blood lymphocytes/100 leukoc ytesOrdered By: Virgil Bazzi on 03-21-2023 Lymphocytes/100 WBC (Bld) 39.9 % 19-41 [facility] Blood monocytes/100 leukocyt esOrdered By: Virgil Bazzi on 03-21-2023 Monocytes/100 WBC (Bld) 9.3 % 0-10 [facility] Blood platelet mean volumeOr dered By: Virgil Bazzi on 03-21-2023 Platelet mean volume (Bld) [Entitic vol] 9.4 fL 6.2-12.0 [facility] Determination of erythrocyte mean corpuscular volume (MCV)Ordered By: Virgil Bazzi on 03-21-2023 MCV (RBC) [Entitic vol] 95.7 fL 81-99 [facility] Hematocrit Auto (Bld) [Volum e fraction]Ordered By: Virgil Bazzi on 03-21-2023 Hematocrit (Bld) [Volume fraction] 46.3 % 37-47 [facility] Ketones Test strip Ql (U)Ord ered By: Virgil Bazzi on 03-21-2023 Ketones Ql (U) Negative Negative [facility] Laboratory - Chemistry and C hemistry - challengeOrdered By: Virgil Bazzi on 03-21-2023 CO2 [Moles/Vol] 27.0 mmol/L 21.0-32.0 [facility] Magnesium [Mass/Vol] 2.7 mg/dL 1.6-2.6 [facility] Urea nitrogen/Creatinine [Mass ratio] 24.9 mg/mg 10-20 [facility] Laboratory - Hematology and Cell countsOrdered By: Virgil Bazzi on 03-21-2023 Erythrocyte distribution width (RBC) [Entitic vol] 44.7 fL 35.1-43.9 [facility] Erythrocyte distribution width (RBC) [Ratio] 12.7 % 11.6-14.6 [facility] Immature granulocytes/100 WBC (Bld) 0.300 % 0.0-0.9 [facility] Comment on above: IG% - Immature Granu locytes (promyelocytes, myelocytes and metamyelocytes) > 1% indicates that a LEFT SHIFT is Present. MCH (RBC) [Entitic mass] 31.0 pg 27.0-32.0 [facility] Nucleated RBC/100 WBC (Bld) [Ratio] 0 % 0-5 [facility] MCHC Auto (RBC) [Mass/Vol]Or dered By: Virgil Bazzi on 03-21-2023 MCHC (RBC) [Mass/Vol] 32.4 g/dL 32-36 [facility] Mucus LM Ql (Urine sed)Order ed By: Virgil Bazzi on 03-21-2023 Mucus Ql (Urine sed) 0 SEEN /hpf [facility] Nitrite Test strip Ql (U)Ord ered By: Virgil Bazzi on 03-21-2023 Nitrite Ql (U) Negative Negative [facility] No Panel InformationOrdered By: Virgil Bazzi on 03-21-2023 Troponin I High Sensitivity 6 pg/mL 3.0-54.0 [facility] Comment on above: Please Note: [place] t Units and Gender Specific Reference Ranges. For more information see Policy Stat Procedure [place] High Sensitivity Troponin (TNIH) and attachments. Estimated Creatinine Clearance Calc 41.25 ml/min [facility] Estimated GFR (MDRD) Amer 72 mL/min >60 [facility] Comment on above: GFR Calc Estimated GFR (MDRD) Non-Af Amer 59 mL/min >60 [facility] Comment on above: Non- GFR Calc Platelets bldOrdered By: Alcon Bazzi on 03-21-2023 Platelets (Bld) [#/Vol] 288 10*3/uL 150-450 [facility] Protein Test strip Ql (U)Ord ered By: Virgil Bazzi on 03-21-2023 Protein Ql (U) Negative Negative [facility] Serum or plasma calcium tyron urement (mass/volume)Ordered By: Virgil Bazzi on 03-21-2023 Calcium [Mass/Vol] 9.6 mg/dL 8.5-10.1 [facility] Serum or plasma creatinine m easurement (mass/volume)Ordered By: Virgil Bazzi on 03-21-2023 Creatinine [Mass/Vol] 0.96 mg/dL 0.55-1.02 [facility] Comment on above: The validity of the calculated GFR & GFRAA in patients over 70 years has not been determined. Clinical correlation is essential. Serum or plasma urea nitroge n measurement (mass/volume)Ordered By: Virgil Bazzi on 03-21-2023 Urea nitrogen [Mass/Vol] 24 mg/dL 7-18 [facility] Squamous epithelial cells de tection in urine sediment by light microscopyOrdered By: Virgil Bazzi on 03-21-2023 Epithelial cells.squamous LM Ql (Urine sed) 0 SEEN /hpf 5-10 [facility] Thin prep Papanicolaou smear with manual screeningOrdered By: Virgil Bazzi on 03-21-2023 Thin prep Papanicolaou smear with manual screening 5 5-15 [facility] Urine blood detectionOrdered By: Virgil Bazzi on 03-21-2023 RBC Ql (U) Negative Negative [facility] RBC Ql (U) 0 SEEN /hpf 0-5 [facility] Urine clarityOrdered By: Alcon Bazzi on 03-21-2023 Clarity (U) Clear Clear [facility] Urine color determinationOrd ered By: Virgil Bazzi on 03-21-2023 Color (U) Yellow Yellow [facility] Urine glucose detectionOrder ed By: Virgil Bazzi on 03-21-2023 Glucose Ql (U) Normal mg/dl Normal [facility] Urine leukocyte esterase det ection by dipstickOrdered By: Virgil Bazzi on 03-21-2023 Leukocyte esterase Test strip Ql (U) Negative Negative [facility] Urine pHOrdered By: Virgil baltazar on 03-21-2023 pH (U) 6.5 [pH] 5.0 - 8.0 [facility] Urine sediment bacteria coun t by microscopy (number/high power field)Ordered By: Virgil Bazzi on 03-21-2023 Bacteria LM.HPF (Urine sed) [#/Area] 0 /[HPF] None Seen [facility] Urine specific gravity measu rementOrdered By: Virgil Bazzi on 03-21-2023 Specific gravity (U) [Rel density] 1.010 1.002-1.030 [facility] Urobilinogen Auto test strip Ql (U)Ordered By: Virgil Bazzi on 03-21-2023 Urobilinogen Ql (U) Normal mg/dl Normal [facility] Basophil percentageOrdered B y: Debra Goodman on 03-13-2023 Chloride [Moles/Vol] 107 mmol/L 98-107 [facility] Glucose [Mass/Vol] 92 mg/dL 74-106 [facility] Potassium [Moles/Vol] 3.8 mmol/L 3.5-5.1 [facility] Sodium [Moles/Vol] 138 mmol/L 136-145 [facility] WBC (Bld) [#/Vol] 7.5 10*3/uL 4.4-11.0 [facility] Blood erythrocytes count (nu mber/volume)Ordered By: Debra Goodman on 03-13-2023 RBC (Bld) [#/Vol] 4.28 10*6/uL 4.2-5.4 [facility] Blood hemoglobin measurement (mass/volume)Ordered By: Debra Goodman on 03-13-2023 Hemoglobin (Bld) [Mass/Vol] 13.3 g/dL 12.0-15.0 [facility] Blood platelet mean volumeOr dered By: Debra Goodman on 03-13-2023 Platelet mean volume (Bld) [Entitic vol] 9.3 fL 6.2-12.0 [facility] Determination of erythrocyte mean corpuscular volume (MCV)Ordered By: Debra Goodman on 03-13-2023 MCV (RBC) [Entitic vol] 93.9 fL 81-99 [facility] Hematocrit Auto (Bld) [Volum e fraction]Ordered By: Debra Goodman on 03-13-2023 Hematocrit (Bld) [Volume fraction] 40.2 % 37-47 [facility] Laboratory - Chemistry and C hemistry - challengeOrdered By: Debra Goodman on 03-13-2023 CO2 [Moles/Vol] 26.0 mmol/L 21.0-32.0 [facility] Urea nitrogen/Creatinine [Mass ratio] 23.3 mg/mg 10-20 [facility] Laboratory - Hematology and Cell countsOrdered By: Debra Goodman on 03-13-2023 Erythrocyte distribution width (RBC) [Entitic vol] 43.8 fL 35.1-43.9 [facility] Erythrocyte distribution width (RBC) [Ratio] 12.7 % 11.6-14.6 [facility] MCH (RBC) [Entitic mass] 31.1 pg 27.0-32.0 [facility] MCHC Auto (RBC) [Mass/Vol]Or dered By: Debra Goodman on 03-13-2023 MCHC (RBC) [Mass/Vol] 33.1 g/dL 32-36 [facility] No Panel InformationOrdered By: Debra Goodman on 03-13-2023 Estimated GFR (MDRD) Amer 77 mL/min >60 [facility] Comment on above: GFR Calc Estimated GFR (MDRD) Non-Af Amer 64 mL/min >60 [facility] Comment on above: Non- GFR Calc Thyroid Stimulating Hormone (TSH) 2.85 uIU/mL 0.358-3.74 [facility] Platelets bldOrdered By: Donato Goodman on 03-13-2023 Platelets (Bld) [#/Vol] 252 10*3/uL 150-450 [facility] Serum or plasma calcium tyron urement (mass/volume)Ordered By: Debra Goodman on 03-13-2023 Calcium [Mass/Vol] 8.6 mg/dL 8.5-10.1 [facility] Serum or plasma creatinine m easurement (mass/volume)Ordered By: Debra Goodman on 03-13-2023 Creatinine [Mass/Vol] 0.90 mg/dL 0.55-1.02 [facility] Comment on above: The validity of the calculated GFR & GFRAA in patients over 70 years has not been determined. Clinical correlation is essential. Serum or plasma urea nitroge n measurement (mass/volume)Ordered By: Debra Goodman on 03-13-2023 Urea nitrogen [Mass/Vol] 21 mg/dL 7-18 [facility] Thin prep Papanicolaou smear with manual screeningOrdered By: Debra Goodman on 03-13-2023 Thin prep Papanicolaou smear with manual screening 5 5-15 [facility] Absolute lymphocyte countOrd ered By: Dr. Clement on 12-19-2022 Lymphocytes Auto (Unsp spec) [#/Vol] 2.48 10*3/uL 0.83-4.51 [facility] Basophil percentageOrdered B y: Dr. Clement on 12-19-2022 Basophils/100 WBC (Bld) 0.4 % 0-1 [facility] Chloride [Moles/Vol] 106 mmol/L 98-107 [facility] Eosinophils/100 WBC (Bld) 0.8 % 0-5 [facility] Glucose [Mass/Vol] 99 mg/dL 74-106 [facility] Neutrophils (Bld) [#/Vol] 8.4 10*3/uL 2.0-7.7 [facility] Neutrophils/100 WBC (Bld) 68.2 % 47-70 [facility] Potassium [Moles/Vol] 3.6 mmol/L 3.5-5.1 [facility] Sodium [Moles/Vol] 140 mmol/L 136-145 [facility] WBC (Bld) [#/Vol] 12.4 10*3/uL 4.4-11.0 [facility] Blood erythrocytes count (nu mber/volume)Ordered By: Dr. Clement on 12-19-2022 RBC (Bld) [#/Vol] 4.36 10*6/uL 4.2-5.4 [facility] Blood hemoglobin measurement (mass/volume)Ordered By: Dr. Clemnet on 12-19-2022 Hemoglobin (Bld) [Mass/Vol] 13.3 g/dL 12.0-15.0 [facility] Blood lymphocytes/100 leukoc ytesOrdered By: Dr. Clement on 12-19-2022 Lymphocytes/100 WBC (Bld) 20.0 % 19-41 [facility] Blood monocytes/100 leukocyt esOrdered By: Dr. Clement on 12-19-2022 Monocytes/100 WBC (Bld) 8.7 % 0-10 [facility] Blood platelet mean volumeOr dered By: Dr. Clement on 12-19-2022 Platelet mean volume (Bld) [Entitic vol] 9.3 fL 6.2-12.0 [facility] Determination of erythrocyte mean corpuscular volume (MCV)Ordered By: Dr. Clement on 12-19-2022 MCV (RBC) [Entitic vol] 94.5 fL 81-99 [facility] Hematocrit Auto (Bld) [Volum e fraction]Ordered By: Dr. Clement on 12-19-2022 Hematocrit (Bld) [Volume fraction] 41.2 % 37-47 [facility] Laboratory - Chemistry and C hemistry - challengeOrdered By: Dr. Clement on 12-19-2022 CO2 [Moles/Vol] 28.0 mmol/L 21.0-32.0 [facility] Urea nitrogen/Creatinine [Mass ratio] 18.8 mg/mg 10-20 [facility] Laboratory - Hematology and Cell countsOrdered By: Dr. Clement on 12-19-2022 Erythrocyte distribution width (RBC) [Entitic vol] 48.2 fL 35.1-43.9 [facility] Erythrocyte distribution width (RBC) [Ratio] 13.9 % 11.6-14.6 [facility] Immature granulocytes/100 WBC (Bld) 1.900 % 0.0-0.9 [facility] Comment on above: IG% - Immature Granu locytes (promyelocytes, myelocytes and metamyelocytes) > 1% indicates that a LEFT SHIFT is Present. MCH (RBC) [Entitic mass] 30.5 pg 27.0-32.0 [facility] Nucleated RBC/100 WBC (Bld) [Ratio] 0 % 0-5 [facility] MCHC Auto (RBC) [Mass/Vol]Or dered By: Dr. Clement on 12-19-2022 MCHC (RBC) [Mass/Vol] 32.3 g/dL 32-36 [facility] No Panel InformationOrdered By: Dr. Clement on 12-19-2022 Estimated GFR (MDRD) Amer 68 mL/min >60 [facility] Comment on above: GFR Calc Estimated GFR (MDRD) Non-Af Amer 56 mL/min >60 [facility] Comment on above: Non- GFR Calc Platelets bldOrdered By: Dr. Clement on 12-19-2022 Platelets (Bld) [#/Vol] 349 10*3/uL 150-450 [facility] Serum or plasma calcium tyron urement (mass/volume)Ordered By: Dr. Clement on 12-19-2022 Calcium [Mass/Vol] 9.2 mg/dL 8.5-10.1 [facility] Serum or plasma creatinine m easurement (mass/volume)Ordered By: Dr. Clement on 12-19-2022 Creatinine [Mass/Vol] 1.01 mg/dL 0.55-1.02 [facility] Comment on above: The validity of the calculated GFR & GFRAA in patients over 70 years has not been determined. Clinical correlation is essential. Serum or plasma urea nitroge n measurement (mass/volume)Ordered By: Dr. Clement on 12-19-2022 Urea nitrogen [Mass/Vol] 19 mg/dL 7-18 [facility] Thin prep Papanicolaou smear with manual screeningOrdered By: Dr. Clement on 12-19-2022 Thin prep Papanicolaou smear with manual screening 6 5-15 [facility] Basophil percentageOrdered B y: Virgil Bazzi on 12-15-2022 Chloride [Moles/Vol] 107 mmol/L 98-107 [facility] Glucose [Mass/Vol] 100 mg/dL 74-106 [facility] Comment on above: Fasting Glucose resu lt from 100 to 125 mg/dL suggests IMPAIRED HOMEOSTASIS per A.D.A. criteria. Potassium [Moles/Vol] 3.8 mmol/L 3.5-5.1 [facility] Sodium [Moles/Vol] 140 mmol/L 136-145 [facility] Laboratory - Chemistry and C hemistry - challengeOrdered By: Virgil Bazzi on 12-15-2022 CO2 [Moles/Vol] 26.0 mmol/L 21.0-32.0 [facility] Urea nitrogen/Creatinine [Mass ratio] 26.4 mg/mg 10- [facility] No Panel InformationOrdered By: Virgil Bazzi on 12-15-2022 Estimated Creatinine Clearance Calc 36.25 ml/min [facility] Estimated GFR (MDRD) Amer 62 mL/min >60 [facility] Comment on above: GFR Calc Estimated GFR (MDRD) Non-Af Amer 51 mL/min >60 [facility] Comment on above: Non- GFR Calc Serum or plasma calcium tyron urement (mass/volume)Ordered By: Virgil Bazzi on 12-15-2022 Calcium [Mass/Vol] 8.8 mg/dL 8.5-10.1 [facility] Serum or plasma creatinine m easurement (mass/volume)Ordered By: Virgil Bazzi on 12-15-2022 Creatinine [Mass/Vol] 1.10 mg/dL 0.55-1.02 [facility] Comment on above: The validity of the calculated GFR & GFRAA in patients over 70 years has not been determined. Clinical correlation is essential. Serum or plasma urea nitroge n measurement (mass/volume)Ordered By: Virgil Bazzi on 12-15-2022 Urea nitrogen [Mass/Vol] 29 mg/dL 7-18 [facility] Thin prep Papanicolaou smear with manual screeningOrdered By: Virgil Bazzi on 12-15-2022 Thin prep Papanicolaou smear with manual screening 7 - [facility] Basophil percentageOrdered B y: Dr. Wiggins on 12-10-2022 Bilirubin [Mass/Vol] 1.10 mg/dL 0.20-1.00 [facility] Comment on above: For patients on eltr ombopag therapy, use of Dimension [place] TBIL is not recommended. Chloride [Moles/Vol] 109 mmol/L 98-107 [facility] Glucose [Mass/Vol] 118 mg/dL 74-106 [facility] Comment on above: Fasting Glucose resu lt from 100 to 125 mg/dL suggests IMPAIRED HOMEOSTASIS per A.D.A. criteria. Potassium [Moles/Vol] 3.3 mmol/L 3.5-5.1 [facility] Protein [Mass/Vol] 6.4 g/dL 6.4-8.2 [facility] Sodium [Moles/Vol] 141 mmol/L 136-145 [facility] WBC (Bld) [#/Vol] 10.3 10*3/uL 4.4-11.0 [facility] Basophil percentageOrdered B y: Dr. Dalton on 12-10-2022 Cholesterol [Mass/Vol] 195 mg/dL <200 [facility] Comment on above: <200 mg/dL Desirable 200-240 mg/dL Borderline >240 mg/dL High Risk Triglyceride [Mass/Vol] 215 mg/dL <199 [facility] Comment on above: The drugs N-Acetylcy steine and Metamizole may falsely depress this assay.Serum Triglycerides Reference Interval Normal <150 mg/dL Borderline high 150 - 199 mg/dL High 200 - 499 mg/dL Very High > or = 500 mg/dL Blood erythrocytes count (nu mber/volume)Ordered By: Dr. Wiggins on 12-10-2022 RBC (Bld) [#/Vol] 3.99 10*6/uL 4.2-5.4 [facility] Blood hemoglobin measurement (mass/volume)Ordered By: Dr. Wiggins on 12-10-2022 Hemoglobin (Bld) [Mass/Vol] 12.2 g/dL 12.0-15.0 [facility] Blood platelet mean volumeOr dered By: Dr. Wiggins on 12-10-2022 Platelet mean volume (Bld) [Entitic vol] 9.7 fL 6.2-12.0 [facility] Determination of erythrocyte mean corpuscular volume (MCV)Ordered By: Dr. Wiggins on 12-10-2022 MCV (RBC) [Entitic vol] 93.7 fL 81-99 [facility] Hematocrit Auto (Bld) [Volum e fraction]Ordered By: Dr. Wiggins on 12-10-2022 Hematocrit (Bld) [Volume fraction] 37.4 % 37-47 [facility] Laboratory - Chemistry and C hemistry - challengeOrdered By: Dr. Wiggins on 12-10-2022 ALP [Catalytic activity/Vol] 61 U/L 45-117 [facility] ALT [Catalytic activity/Vol] 21 U/L 13-56 [facility] CO2 [Moles/Vol] 24.0 mmol/L 21.0-32.0 [facility] Globulin (S) [Mass/Vol] 3.0 g/dL 2.2-4.2 [facility] Urea nitrogen/Creatinine [Mass ratio] 14.6 mg/mg 10-20 [facility] Laboratory - Hematology and Cell countsOrdered By: Dr. Wiggins on 12-10-2022 Erythrocyte distribution width (RBC) [Entitic vol] 45.3 fL 35.1-43.9 [facility] Erythrocyte distribution width (RBC) [Ratio] 13.2 % 11.6-14.6 [facility] MCH (RBC) [Entitic mass] 30.6 pg 27.0-32.0 [facility] MCHC Auto (RBC) [Mass/Vol]Or dered By: Dr. Wiggins on 12-10-2022 MCHC (RBC) [Mass/Vol] 32.6 g/dL 32-36 [facility] No Panel InformationOrdered By: Dr. Wiggins on 12-10-2022 Estimated Creatinine Clearance Calc 36.31 ml/min [facility] Estimated GFR (MDRD) Amer 66 mL/min >60 [facility] Comment on above: GFR Calc Estimated GFR (MDRD) Non-Af Amer 55 mL/min >60 [facility] Comment on above: Non- GFR Calc Platelets bldOrdered By: Dr. Wiggins on 12-10-2022 Platelets (Bld) [#/Vol] 251 10*3/uL 150-450 [facility] Serum or plasma albumin tyron urement (mass/volume)Ordered By: Dr. Wiggins on 12-10-2022 Albumin [Mass/Vol] 3.4 g/dL 3.2-5.0 [facility] Serum or plasma albumin/glob ulin mass ratioOrdered By: Dr. Wiggins on 12-10-2022 Albumin/Globulin [Mass ratio] 1.1 {ratio} 0.9-2.4 [facility] Serum or plasma calcium tyron urement (mass/volume)Ordered By: Dr. Wiggins on 12-10-2022 Calcium [Mass/Vol] 8.4 mg/dL 8.5-10.1 [facility] Serum or plasma cholesterol in HDL measurement (mass/volume)Ordered By: Dr. Dalton on 12-10-2022 Cholesterol in HDL [Mass/Vol] 43 mg/dL >40 [facility] Comment on above: The drugs N-Acetylcy steine and Metamizole may falsely depress this assay. Reference Range HDL <40 mg/dL Low HDL Cholesterol HDL >or= 60 mg/dL High HDL Cholesterol Serum or plasma cholesterol in VLDL measurement (mass/volume)Ordered By: Dr. Dalton on 12-10-2022 Cholesterol in VLDL [Mass/Vol] 43 mg/dL 5-40 [facility] Serum or plasma creatinine m easurement (mass/volume)Ordered By: Dr. Wiggins on 12-10-2022 Creatinine [Mass/Vol] 1.03 mg/dL 0.55-1.02 [facility] Comment on above: The validity of the calculated GFR & GFRAA in patients over 70 years has not been determined. Clinical correlation is essential. Serum or plasma low density lipoprotein (LDL) cholesterol measurement (mass/volume)Ordered By: Dr. Dalton on 12-10-2022 Cholesterol in LDL [Mass/Vol] 109 mg/dL 0-130 [facility] Serum or plasma urea nitroge n measurement (mass/volume)Ordered By: Dr. Wiggins on 12-10-2022 Urea nitrogen [Mass/Vol] 15 mg/dL 7-18 [facility] Thin prep Papanicolaou smear with manual screeningOrdered By: Dr. Wiggins on 12-10-2022 Thin prep Papanicolaou smear with manual screening 24 U/L 15-37 [facility] Thin prep Papanicolaou smear with manual screening 8 5-15 [facility] Absolute lymphocyte countOrd ered By: Dr. Cabrera on 12-09-2022 Lymphocytes Auto (Unsp spec) [#/Vol] 1.60 10*3/uL 0.83-4.51 [facility] Basophil percentageOrdered B y: Dr. Cabrera on 12-09-2022 Basophils/100 WBC (Bld) 0.1 % 0-1 [facility] Eosinophils/100 WBC (Bld) 0.0 % 0-5 [facility] Neutrophils (Bld) [#/Vol] 5.3 10*3/uL 2.0-7.7 [facility] Neutrophils/100 WBC (Bld) 69.8 % 47-70 [facility] Blood lymphocytes/100 leukoc ytesOrdered By: Dr. Cbarera on 12-09-2022 Lymphocytes/100 WBC (Bld) 21.2 % 19-41 [facility] Blood monocytes/100 leukocyt esOrdered By: Dr. Cabrera on 12-09-2022 Monocytes/100 WBC (Bld) 8.5 % 0-10 [facility] Laboratory - Hematology and Cell countsOrdered By: Dr. Cabrera on 12-09-2022 Immature granulocytes/100 WBC (Bld) 0.400 % 0.0-0.9 [facility] Comment on above: IG% - Immature Granu locytes (promyelocytes, myelocytes and metamyelocytes) > 1% indicates that a LEFT SHIFT is Present. Nucleated RBC/100 WBC (Bld) [Ratio] 0 % 0-5 [facility] No Panel InformationOrdered By: Dr. Cabrera on 12-09-2022 Troponin I High Sensitivity 242 pg/mL 3.0-54.0 [facility] Comment on above: Critical Result(s) C alled at: 01:59:28 12/09/2022 by: NADIA SHAW to Dacia Miller RN PCU. Results read back by same. Please Note: New Test Units and Gender Specific Reference Ranges. For more information see Policy Stat Procedure [place] High Sensitivity Troponin (TNIH) and attachments. Absolute lymphocyte counton 12-08-2022 Lymphocytes Auto (Unsp spec) [#/Vol] 1.77 10*3/uL 0.83-4.51 [facility] Work Phone: Basophil percentageon 2022 Basophils/100 WBC (Bld) 0.3 % 0-1 [facility] Work Phone: Chloride [Moles/Vol] 107 mmol/L 98-107 [facility] Work Phone: Eosinophils/100 WBC (Bld) 0.3 % 0-5 [facility] Work Phone: Glucose [Mass/Vol] 190 mg/dL 74-106 [facility] Work Phone: Comment on above: Fasting Glucose resu lt greater than or equal to 126 mg/dL suggests DIABETES MELLITUS per A.D.A. criteria. Neutrophils (Bld) [#/Vol] 6.5 10*3/uL 2.0-7.7 [facility] Work Phone: Neutrophils/100 WBC (Bld) 75.8 % 47-70 [facility] Work Phone: Potassium [Moles/Vol] 3.3 mmol/L 3.5-5.1 [facility] Work Phone: Comment on above: Slight Hemolysis, Re sult may be falsely increased. Sodium [Moles/Vol] 141 mmol/L 136-145 [facility] Work Phone: WBC (Bld) [#/Vol] 8.6 10*3/uL 4.4-11.0 [facility] Work Phone: Blood erythrocytes count (nu mber/volume)on 12-08-2022 RBC (Bld) [#/Vol] 4.45 10*6/uL 4.2-5.4 [facility] Work Phone: Blood hemoglobin measurement (mass/volume)on 12-08-2022 Hemoglobin (Bld) [Mass/Vol] 14.2 g/dL 12.0-15.0 [facility] Work Phone: Blood lymphocytes/100 leukoc yteson 12-08-2022 Lymphocytes/100 WBC (Bld) 20.6 % 19-41 [facility] Work Phone: Blood monocytes/100 leukocyt eson 12-08-2022 Monocytes/100 WBC (Bld) 2.8 % 0-10 [facility] Work Phone: Blood platelet mean volumeon 12-08-2022 Platelet mean volume (Bld) [Entitic vol] 9.8 fL 6.2-12.0 [facility] Work Phone: Determination of erythrocyte mean corpuscular volume (MCV)on 12-08-2022 MCV (RBC) [Entitic vol] 93.0 fL 81-99 [facility] Work Phone: Hematocrit Auto (Bld) [Volum e fraction]on 12-08-2022 Hematocrit (Bld) [Volume fraction] 41.4 % 37-47 [facility] Work Phone: Laboratory - Chemistry and C hemistry - challengeon 12-08-2022 CO2 [Moles/Vol] 25.0 mmol/L 21.0-32.0 [facility] Work Phone: Urea nitrogen/Creatinine [Mass ratio] 14.9 mg/mg 10-20 [facility] Work Phone: Laboratory - CoagulationOrde red By: Dr. Walters on 12-08-2022 aPTT Coag (Bld) [Time] 29.1 s 24.1-36.2 [facility] Laboratory - Hematology and Cell countson 12-08-2022 Erythrocyte distribution width (RBC) [Entitic vol] 44.5 fL 35.1-43.9 [facility] Work Phone: Erythrocyte distribution width (RBC) [Ratio] 13.1 % 11.6-14.6 [facility] Work Phone: Immature granulocytes/100 WBC (Bld) 0.200 % 0.0-0.9 [facility] Work Phone: Comment on above: IG% - Immature Granu locytes (promyelocytes, myelocytes and metamyelocytes) > 1% indicates that a LEFT SHIFT is Present. MCH (RBC) [Entitic mass] 31.9 pg 27.0-32.0 [facility] Work Phone: Nucleated RBC/100 WBC (Bld) [Ratio] 0 % 0-5 [facility] Work Phone: MCHC Auto (RBC) [Mass/Vol]on 12-08-2022 MCHC (RBC) [Mass/Vol] 34.3 g/dL 32-36 [facility] Work Phone: No Panel Informationon 12-08 Troponin I High Sensitivity 218 pg/mL 3.0-54.0 [facility] Work Phone: Comment on above: Critical Result(s) C alled at: 22:30:52 12/08/2022 by: Yolanda marc TO ORA. Results read back by same. Please Note: New Test Units and Gender Specific Reference Ranges. For more information see Policy Stat Procedure [place] High Sensitivity Troponin (TNIH) and attachments. Estimated Creatinine Clearance Calc 28.29 ml/min [facility] Work Phone: Estimated GFR (MDRD) Amer 49 mL/min >60 [facility] Work Phone: Comment on above: GFR Calc Estimated GFR (MDRD) Non-Af Amer 40 mL/min >60 [facility] Work Phone: Comment on above: Non- GFR Calc Platelets bldon 12-08-2022 Platelets (Bld) [#/Vol] 289 10*3/uL 150-450 [facility] Work Phone: Serum or plasma calcium tyron urement (mass/volume)on 12-08-2022 Calcium [Mass/Vol] 8.6 mg/dL 8.5-10.1 [facility] [place] Work Phone: Serum or plasma creatinine m easurement (mass/volume)on 12-08-2022 Creatinine [Mass/Vol] 1.34 mg/dL 0.55-1.02 [facility] [place] Work Phone: Comment on above: The validity of the calculated GFR & GFRAA in patients over 70 years has not been determined. Clinical correlation is essential. Serum or plasma urea nitroge n measurement (mass/volume)on 12-08-2022 Urea nitrogen [Mass/Vol] 20 mg/dL 7-18 [facility] Work Phone: Thin prep Papanicolaou smear with manual screeningon 12-08-2022 Thin prep Papanicolaou smear with manual screening 9 5-15 [facility] Work Phone: CNOVon 01-24-2018 CNOV Office Visit ([place]) Anup LOVE ([id number]) 1940 [facility] Time Provider Department01/24/18 10:40 AM AUBREE MCNEAL [...] Down x# Car: x# OOB x Pass:# Purchase Price Analyst:# Bending Store: +-# Upon Up###################### ######################## ####################Vest [...] Date LocationHosp 08/12PCP STEVENSON Dos Santos (in [place]) - not Meniere'sNeuro In the past during [...] MEDICAL HISTORYDiagnosis Date- HTN (hypertension)Social History: 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 stable Heel walk: unsteady Toe walk: somewhat unsteady Tandem (Forward): unsteady Tandem (Reverse): unsteady################ ######################## ######################## ##Off-balanced sensation - 3-4/10, 1-2 with manual cervical traction################ ######################## ######################## ##The patient was personally seen and examined by myself.Aubree Mcneal MDOtoneurology / NeurologyCenter for Headache and PainNeurological InstituteRegency Hospital CompanyT33cc:Maxx Wright, PT *(Results of consultation to be transmitted via electronic medical record forthose providers who practice within [facility] or with access to [facility] via [facility], or via letter)Total time of 55 minutes was spent with the patient regarding the above.Referring Provider: JARETT WRIGHT [[id number]]Allergies As of Date: 01/24/2018 Noted Allergy ReactionPENICILLAMINE 08/22/2005Date Reviewed: 01/24/2018Reviewed by: Aubree Eileen - Fully AssessedReason for Visit: Dizziness [36]Primary [...] 01/30/2018 Sig: As instructed per packageEncounter Number: [id number] Status:Closed by AUBREE MCNEAL MD on 01/24/18 [facility] PROGRESSon 01-24-2018 PROGRESS HNO ID: [id number]: Aubree Huntervice: (none)Author Type: PhysicianType: Progress NotesFiled: 01/24/2018 12:54 PMNote Text:OTONEUROLOGY CONSULTATIONReferral source: (Maxx Wright PT)Chief Complaint:ImbalanceDizzi ness: FloatingNeck: Pain#################### ######################## ######################## [...] Down x# Car: x# OOB x Pass:# Purchase Price Analyst:# Bending Store: +-# Upon Up###################### ######################## ####################Vest [...] the hospitalzofranProcedures /Surgery:PT Other Neck/VR - Maxx Adriana / Leoncio Ron - w/ benefit. 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 stable Heel walk: unsteady Toe walk: somewhat unsteady Tandem (Forward): unsteady Tandem (Reverse): unsteady################ ######################## ######################## ##Off-balanced sensation - 3-4/10, 1-2 with manual cervical traction################ ######################## ######################## ##The patient was personally seen and examined by myself.Aubree Mcneal MDOtoneurology / NeurologyCenter for Headache and PainNeurological InstituteThe Acmc Healthcare SystemT33cc:Maxx Wright, PT *(Results of consultation to be transmitted via electronic medical recordfor those providers who practice within [facility] or with access to [employer], or via letter)Total time of 55 minutes was spent with the patient regarding the above. Normal [facility] Vital Signs Date Time Vital Sign Value Performing Clinician Nneka jimenez 03-27-2025 07:43-0400 Body height 149.[address] Kyara Odonnell MD Work Phone: [facility] 03-27-2025 07:43-0400 Body mass index (BMI) [Ratio] 23.2 kg/m2 Dr. Kyara Odonnell MD Work Phone: [facility] 03-27-2025 07:43-0400 Body weight 52.[address] Kyara Odonnell MD Work Phone: [facility] 03-27-2025 07:43-0400 Diastolic blood pressure 71 mm[Hg] Dr. Kyara Odonnell MD Work Phone: [facility] 03-27-2025 07:43-0400 Heart rate 73 /min Dr. Kyara Odonnell MD Work Phone: [facility] 03-27-2025 07:43-0400 Respiratory rate 16 /min Dr. Kyara Odonnell MD Work Phone: [facility] 03-27-2025 07:43-0400 Systolic blood pressure 133 mm[Hg] Dr. Kyara Odonnell MD Work Phone: 2(029)123-762167 [place] [address] 12-18-2024 14:00-0500 Body height 149.[address] Kyara Odonnell MD Work Phone: 2(166)546-794045 [address] 12-18-2024 13:54-0500 Body mass index (BMI) [Ratio] 23.8 kg/m2 Dr. Kyara Odonnell MD Work Phone: 3(779)693-616445 [address] 12-18-2024 13:54-0500 Body temperature 97.5 [degF] Dr. Kyara Odonnell MD Work Phone: 0(508)190-854545 [address] 12-18-2024 13:54-0500 Body weight 53.[address] Kyara Odonnell MD Work Phone: 0(452)117-124267 [place] [address] 12-18-2024 13:54-0500 Diastolic blood pressure 71 mm[Hg] Dr. Kyara Odonnell MD Work Phone: 8(850)509-416067 [place] [address] 12-18-2024 13:54-0500 Heart rate 68 /min Dr. Kyara Odonnell MD Work Phone: 8(711)985-806467 [place] [address] 12-18-2024 13:54-0500 Respiratory rate 18 /min Dr. Kyara Odonnell MD Work Phone: [facility] 12-18-2024 13:54-0500 SaO2% (BldA) [Mass fraction] 99 % Dr. Kyara Odonnell MD Work Phone: [facility] 12-18-2024 13:54-0500 Systolic blood pressure 127 mm[Hg] Dr. Kyara Odonnell MD Work Phone: [facility] 03-21-2023 05:49-0400 Diastolic blood pressure 74 mm[Hg] Dr. Kyara Odonnell Work Phone: [facility] 03-21-2023 05:49-0400 Heart rate 79 /min Dr. Kyara Odonnell Work Phone: [facility] 03-21-2023 05:49-0400 Respiratory rate 18 /min Dr. Kyara Odonnell Work Phone: [facility] 03-21-2023 05:49-0400 SaO2% (BldA) [Mass fraction] 100 % Dr. Kyara Odonnell Work Phone: [facility] 03-21-2023 05:49-0400 Systolic blood pressure 125 mm[Hg] Dr. Kyara Odonnell Work Phone: [facility] 03-21-2023 03:15-0400 Body height 149.[address] Kyara Odonnell Work Phone: [facility] 03-21-2023 03:15-0400 Body mass index (BMI) [Ratio] 24.9 kg/m2 Dr. Kyara Odonnell Work Phone: [facility] 03-21-2023 03:15-0400 Body temperature 97.4 [degF] Dr. Kyara Odonnell Work Phone: [facility] 03-21-2023 03:15-0400 Body weight 55.[address] Kyara Odonnell Work Phone: [facility] 02-28-2023 13:26-0400 Body mass index (BMI) [Ratio] 24.4 kg/m2 Dr. Kyara Odonenll Work Phone: [facility] 02-28-2023 13:26-0400 Body weight 54.[address] Kyara Odonnell Work Phone: [facility] 02-28-2023 13:26-0400 Diastolic blood pressure 65 mm[Hg] Dr. Kyara Odonnell Work Phone: [facility] 02-28-2023 13:26-0400 Heart rate 69 /min Dr. Kyara Odonnell Work Phone: [facility] 02-28-2023 13:26-0400 Respiratory rate 18 /min Dr. Kyara Odonnell Work Phone: [facility] 02-28-2023 13:26-0400 SaO2% (BldA) [Mass fraction] 98 % Dr. Kyara Oodnnell Work Phone: [facility] 02-28-2023 13:26-0400 Systolic blood pressure 112 mm[Hg] Dr. Kyara Odonnell Work Phone: [facility] 01-12-2023 14:16-0500 Body height 149.[address] Kyara Odonnell Work Phone: [facility] 01-12-2023 14:16-0500 Body mass index (BMI) [Ratio] 24.4 kg/m2 Dr. Kyara Odonnell Work Phone: [facility] 01-12-2023 14:16-0500 Body weight 54.[address] Kyara Odonnell Work Phone: [facility] 01-12-2023 14:16-0500 Diastolic blood pressure 71 mm[Hg] Dr. Kyara Odonnell Work Phone: [facility] 01-12-2023 14:16-0500 Heart rate 65 /min Dr. Kyara Odonnell Work Phone: [facility] 01-12-2023 14:16-0500 Respiratory rate 16 /min Dr. Kyara Odonnell Work Phone: [facility] 01-12-2023 14:16-0500 Systolic blood pressure 112 mm[Hg] Dr. Kyara Odonnell Work Phone: [facility] 12-19-2022 10:30-0500 Body height 149.[address] Kyara Odonnell Work Phone: [facility] 12-19-2022 10:30-0500 Body weight 52.[address] Kyara Odonnell Work Phone: [facility] 12-19-2022 10:16-0500 Body mass index (BMI) [Ratio] 23.4 kg/m2 Dr. Kyara Odonnell Work Phone: [facility] 12-19-2022 10:16-0500 Heart rate 72 /min Dr. Kyara Odonnell Work Phone: 3(789)052-367751 [place] [address] 12-19-2022 10:16-0500 SaO2% (BldA) [Mass fraction] 97 % Dr. Kyara Odonnell Work Phone: 5(622)348-189145 [address] 12-15-2022 01:29-0500 Diastolic blood pressure 81 mm[Hg] Dr. Kyara Odonnell Work Phone: 2(098)580-763851 [place] [address] 12-15-2022 01:29-0500 Heart rate 65 /min Dr. Kyara Odonnell Work Phone: 9(011)730-263051 [place] [address] 12-15-2022 01:29-0500 Respiratory rate 16 /min Dr. Kyara Odonnell Work Phone: 7(350)173-459545 [address] 12-15-2022 01:29-0500 SaO2% (BldA) [Mass fraction] 98 % Dr. Kyara Odonnell Work Phone: 9(124)099-889651 [place] [address] 12-15-2022 01:29-0500 Systolic blood pressure 145 mm[Hg] Dr. Kyara Odonnell Work Phone: 3(603)008-196951 [place] [address] 12-15-2022 00:12-0500 Body height 149.[address] Kyara Odonnell Work Phone: 4(223)829-701651 [place] [address] 12-15-2022 00:12-0500 Body mass index (BMI) [Ratio] 25 kg/m2 Dr. Kyara Odonnell Work Phone: 8(775)572-603667 [place] [address] 12-15-2022 00:12-0500 Body temperature 96.8 [degF] Dr. Kyara Odonnell Work Phone: 4(503)213-064751 [place] [address] 12-15-2022 00:12-0500 Body weight 56.[address] Kyara Odonnell Work Phone: 8(480)862-033945 [address] 12-10-2022 11:41-0500 Body temperature 97.6 [degF] Dr. Kyara Odonnell Work Phone: [facility] 12-10-2022 11:41-0500 Diastolic blood pressure 80 mm[Hg] Dr. Kyara Odonnell Work Phone: [facility] 12-10-2022 11:41-0500 Heart rate 83 /min Dr. Kyara Odonnell Work Phone: [facility] 12-10-2022 11:41-0500 Respiratory rate 18 /min Dr. Kyara Odonnell Work Phone: [facility] 12-10-2022 11:41-0500 SaO2% (BldA) [Mass fraction] 94 % Dr. Kyara Odonnell Work Phone: [facility] 12-10-2022 11:41-0500 Systolic blood pressure 133 mm[Hg] Dr. Kyara Odonnell Work Phone: [facility] 12-08-2022 23:22-0500 Body height 149.[address] Kyara Odonnell Work Phone: [facility] Work Phone: 12-08-2022 23:22-0500 Body mass index (BMI) [Ratio] 23.5 kg/m2 Dr. Kyara Odonnell Work Phone: [facility] 12-08-2022 23:22-0500 Body weight 52.[address] Kyara Odonnell Work Phone: [facility] 12-08-2022 22:31-0500 Diastolic blood pressure 81 mm[Hg] [facility] Work Phone: 12-08-2022 22:31-0500 Heart rate 88 /min [facility] Work Phone: 12-08-2022 22:31-0500 Systolic blood pressure 134 mm[Hg] [facility] Work Phone: 12-08-2022 22:07-0500 Body temperature 98.9 [degF] [facility] Work Phone: 12-08-2022 22:07-0500 Respiratory rate 12 /min [facility] Work Phone: 12-08-2022 22:07-0500 SaO2% (BldA) [Mass fraction] 98 % [facility] Work Phone: 12-08-2022 18:53-0500 Body height 149.86 cm [facility] Work Phone: 12-08-2022 18:53-0500 Body mass index (BMI) [Ratio] 23.8 kg/m2 [facility] Work Phone: 12-08-2022 18:53-0500 Body weight 53.52 kg [facility] Work Phone: 06-28-2022 08:50-0400 Body height 149.86 cm [facility] Work Phone: Encounters Encounter Date Encounter Type Care Provider Facility Start: 05-28-2025 End: 05-28-2025 ambulatory Joe Merino MD Work Phone: -Cat Scan [facility] Start: 05-28-2025 End: 05-28-2025 Patient encounter procedure Yin Rosales TOBACCO S[facility]ER-C -Cat Scan [facility] Work Phone: Start: 05-28-2025 End: 05-28-2025 ambulatory Yin Rosales Facility:[facility] Start: 05-07-2025 ambulatory Lazaro Calles Facilit y:[facility] Start: 05-07-2025 Non-patient / Non-visit Dr. Abigail farfan MD -[facility] Start: 05-07-2025 End: 05-07-2025 ambulatory Joe Merino MD Work Phone: [facility] Work Phone: Start: 05-07-2025 End: 05-07-[address] Lazaro Calles DPM -Pulmonary Services/Neurology Work Phone: Start: 05-07-2025 End: 05-07-2025 ambulatory Lazaro Calles Facility:[facility] Start: 03-27-2025 End: 03-27-[address] Kyara Odonnell MD Work Phone: [facility] Work Phone: Start: 03-27-2025 End: 03-27-2025 Patient encounter procedure Debra GODFREY -Laboratory Work Phone: Start: 03-27-2025 End: 03-27-2025 Patient encounter procedure Debra Goodman PA -[facility] Work Phone: Start: 03-27-2025 End: 03-27-2025 ambulatory Debra GODFREY Facility[facility] Start: 03-27-2025 End: 03-27-2025 ambulatory Debra GODFREY Facility:[facility] Start: 02-25-2025 End: 02-25-[address] Kyara Odonnell MD Work Phone: [facility] Work Phone: Start: 02-25-2025 End: 02-25-[address] Joe Merino MD -Radiology, [place] Work Phone: Start: 02-25-2025 End: 02-25-2025 ambulatory Joe Merino Facility:[facility] Start: 12-18-2024 End: 12-18-2024 Patient encounter procedure Debra GODFREY -[place] [facility] Work Phone: Start: 12-18-2024 End: 12-18-2024 ambulatory Kyara S Jolliff Facility:[facility] Start: 09-06-2024 End: 09-06-2024 ambulatory Kyara S Jolliff Facility:[facility] Start: 08-01-2024 End: 08-01-2024 ambulatory Kyara S Jolliff Facility:[facility] Start: 07-30-2024 End: 07-30-2024 ambulatory Kyara S Jolliff Facility:[facility] Start: 07-01-2024 End: 07-01-2024 ambulatory Kyara S Jolliff Facility:[facility] Start: 06-19-2024 End: 06-19-2024 ambulatory Kyara S Roselinelliff Facility:[facility] Start: 06-14-2024 End: 06-14-2024 ambulatory Kyara S Jolliff Facility:[facility] Start: 03-14-2024 End: 03-14-2024 ambulatory [facility] Work Phone: Start: 03-14-2024 End: 03-14-2024 [facility] Start: 03-06-2024 End: 03-06-2024 ambulatory [facility] Work Phone: Start: 03-06-2024 End: 03-06-2024 Patient encounter procedure [facility] Start: 01-30-2024 End: 01-30-2024 ambulatory [facility] Work Phone: Start: 01-30-2024 End: 01-30-2024 Patient encounter procedure [facility] Start: 12-08-2023 End: 12-08-2023 ambulatory [facility] Work Phone: Start: 12-08-2023 End: 12-08-2023 [facility] Start: 10-03-2023 End: 10-03-2023 ambulatory [facility] Work Phone: Start: 10-03-2023 End: 10-03-2023 [facility] Start: 07-25-2023 End: 07-25-2023 ambulatory [facility] Work Phone: Start: 07-25-2023 End: 07-25-2023 Patient encounter procedure [facility] Start: 06-30-2023 End: 06-30-2023 ambulatory [facility] Work Phone: Start: 06-30-2023 End: 06-30-2023 Patient encounter procedure [facility]-Outpatient Breast Imaging Work Phone: Start: 05-19-2023 End: 05-26-[address] Kyara Odonnell Work Phone: [facility] Work Phone: Start: 05-19-2023 End: 05-26-[address] Kyara Odonnell Work Phone: [facility]-Cardiac Rehab Work Phone: Start: 05-02-2023 End: 05-02-[address] Kyara Odonnell Work Phone: [facility]-Pulmonary Services/Neurology Work Phone: Start: 05-02-[address] Kyara bernard Work Phone: [facility]-Cardiovascula r Services Work Phone: Start: 04-26-2023 End: 04-26-[address] Kyara Odonnell Work Phone: [facility] Work Phone: Start: 04-26-2023 End: 04-26-[address] Kyara Odonnell Work Phone: [facility]-Cardiac Rehab Start: 03-24-2023 End: 03-26-[address] Kyara Odonnell Work Phone: [facility] Work Phone: Start: 03-24-2023 End: 03-26-[address] Kyara Odonnell Work Phone: [facility]-Cardiac Rehab Start: 03-22-[address] Kyara dahl Work Phone: [facility]-Cardiac Rehab Start: 03-21-2023 End: 03-21-2023 Emergency department patient visit Dr. Kyara Odonnell Work Phone: [facility]-Emergency Department Start: 03-20-[address] Kyara dahl Work Phone: [facility]-Cardiac Rehab Start: 03-13-2023 End: 03-13-[address] Kyara Odonnell Work Phone: [facility] Work Phone: Start: 03-13-2023 End: 03-13-[address] Kyara Odonnell Work Phone: [facility]-Laboratory Start: 02-28-2023 End: 02-28-[address] Kyara Odonnell Work Phone: [facility] Start: 01-13-2023 End: 01-13-[address] Kyara Odonnell Work Phone: [facility] Work Phone: Start: 01-13-2023 End: 01-13-[address] Kyara Odonnell Work Phone: [facility]-Pulmonary Services/Neurology Start: 01-12-2023 End: 01-12-[address] Kyara Odonnell Work Phone: [facility] Start: 12-28-2022 End: 01-24-[address] Kyara Odonnell Work Phone: [facility] Work Phone: Start: 12-28-2022 End: 01-24-[address] Kyara Odonnell Work Phone: [facility]-Cardiac Rehab Start: 12-28-[address] Kyara dahl Work Phone: [facility]-Cardiac Rehab Start: 12-26-2022 End: 12-27-[address] Kyara Odonnell Work Phone: [facility] Work Phone: Start: 12-26-2022 End: 12-27-[address] Kyara Odonnell Work Phone: [facility]-Cardiac Rehab Start: 12-19-2022 End: 12-19-[address] Kyara Odonnell Work Phone: [facility] Work Phone: Start: 12-19-2022 End: 12-19-[address] Kyara Odonnell Work Phone: [facility] Start: 12-19-2022 End: 12-19-[address] Kyara Odonnell Work Phone: [facility] Work Phone: Start: 12-19-2022 End: 12-19-[address] Kyara Odonnell Work Phone: [facility]-Cardiac Rehab Start: 12-15-2022 End: 12-15-2022 Emergency department patient visit Dr. Kyara Odonnell Work Phone: [facility]-Emergency Department Start: 12-12-2022 End: 12-12-[address] Kyara Odonnell Work Phone: [facility] Start: 12-10-2022 Non-patient / Non-visit Dr. Marita Odonnell Work Phone: [facility] Start: 12-10-2022 Non-patient / Non-visit Dr. Marita Odonnell Work Phone: [facility] Start: 12-09-2022 Non-patient / Non-visit Dr. Marita Odonnell Work Phone: [facility] Start: 12-09-2022 Non-patient / Non-visit Dr. Marita Odonnell Work Phone: [facility] Start: 12-08-2022 End: 12-08-2022 Non-patient / Non-visit Dr. Kyara Odonnell Work Phone: [facility] Start: 12-08-2022 End: 12-10-2022 Evaluation and management of inpatient [facility]-Progressive Care Unit Start: 06-28-2022 End: 06-28-2022 Patient encounter procedure [facility]-Outpatient Breast Imaging Start: 01-24-2018 Ambulatory AUBREE MCNEAL [facility] Procedures Date Procedure Procedure Detail Performing Clinician Start: 05-28-2025 CT of head without contrast Joe Merino MD Work Phone: Start: 02-25-2025 X-ray of chest, PA a nd lateral views Dr. Kyara Odonnell MD Work Phone: Start: 12-08-2023 Plain X-ray of tibia and fibula Start: 10-03-2023 Diagnostic radiograp hy of abdomen, decubitus and erect Start: 06-30-2023 Screening mammography Start: 03-21-2023 Plain chest X-ray Dr. Dacia Odonnell Work Phone: Start: 12-09-2022 History of [...] 03-27-2025 Evaluation of diagno stic study results [facility] Start: 12-10-2022 Patient discharge [facility] Start: 12-09-2022 Patient referral [facility] Work Phone: Start: 12-09-2022 Cardiac monitoring [facility] Start: 12-09-2022 Cardiac rehabilitati on - phase 1 [facility] Start: 12-09-2022 Cardiac rehabilitati on - phase 2 [facility] Start: 12-09-2022 Notification of physician [facility] Start: 12-09-2022 Patient discharge [facility] Start: 12-09-2022 Patient education [facility] Start: 12-09-2022 Provision of activit y privileges [facility] Start: 12-09-2022 Pulse taking [facility] Start: 12-09-2022 Systemic arterial pr essure monitoring [facility] Start: 12-09-2022 Taking [facility] [facility] Start: 12-09-2022 Vascular disease ris k assessment [facility] Start: 12-09-2022 Vital signs measurements [facility] Start: 12-09-2022 Wound care [facility] Start: 12-09-2022 End: 12-09-2022 [facility] Start: 12-09-2022 Cardiac rehabilitati on assessment [facility] Start: 12-09-2022 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 machine operator [facility] Start: 12-08-2022 Oxygen therapy [facility] Start: 12-08-2022 Tobacco use cessatio n education [facility] Start: 12-08-2022 End: 12-08-2022 [facility] Start: 12-08-2022 Assessment of risk o f venous thromboembolism [facility] Start: 12-08-2022 Insertion of cathete r into peripheral vein [facility] Start: 12-08-2022 Measuring intake and output [facility] Start: 12-08-2022 Providing care accor ding to standard [facility] Start: 12-08-2022 Provision of activit y privileges [facility] Start: 12-08-2022 Referral to occupati onal therapist [facility] Start: 12-08-2022 Referral to service [facility] Start: 12-08-2022 Following clinical p athway protocol [facility] Start: 12-08-2022 Admission procedure [facility] Start: 12-08-2022 [facility] Work Phone: Start: 06-28-2022 Dual energy X-ray absorptiometry Dexa Bone Density Study [facility] Work Phone: Lipid 1996 panel - S iesha or Plasma [facility] Patient Education [facility] Work Phone: Patient referral [facility] Work Phone: [facility] Immunizations Immunization Date Immunization Notes Care Provider Angela davila 08-14-2017 Influenza virus vaccine [facility] 10-15-2015 Influenza virus vaccine [facility] Payers Date Payer Category Payer Self-pay [id number] 2014 Private Health Insurance [facility] [id number] Unknown [id number] 2.16.8 [id number] Unknown [id number] 2.16.8 [id number] Unknown [id number] 2.16.8 [id number] Unknown [id number] 2.16.8 [id number] Unknown [id number] 2.16.8 [id number] Unknown [id number] 2.16.8 [id number] Unknown [id number] 2.16.8 [id number] Unknown [id number] 2.16.8 [id number] Unknown [id number] 2.16.8 [id number] Unknown [id number] 2.16.8 [id number] Unknown [id number] 2.16.8 [id number] Unknown [id number] 2.16.8 [id number] Unknown [id number] 2.16.8 [id number] Social History Date Type Detail Facility Start: 08-09-2021 End: 03-21-2023 Tobacco smoking status NHIS Unknown if ever smoked [facility] Start: 11-30-2017 None [facility] Start: 11-30-2017 Spouse/ Signif icant Other [facility] Start: 11-30-2017 Non-smoker [facility] Start: 1940 Sex Assigned At Female [facility] Start: 03-21-2023 Tobacco smoking status NHIS Never smoked tobacco (finding) [facility] Start: 03-03-2025 Sex Female (finding) [facility] Medical Equipment Procedure Code Equipment Code Equipment Origin al Text Equipment Identifier Dates ([id number]) Drug-eluting coronary artery stent, bioabsorbable-polyme r-coated ()[id number] FDA Start: 12-09-2022 ([id number]) Drug-eluting coronary artery stent, bioabsorbable-polyme r-coated ()[id number] FDA Start: 12-09-2022 Functional Status Date Assessment Result Facility 12-10-2022 Functional status Ambulates;Up ad taj [facility] Work Phone: Mental Status Date Assessment Result Facility 03-21-2023 Cognitive function Voice/Name [facility] Work Phone: 12-15-2022 Cognitive function Level Of Cons ciousness Awake;Alert;Appropriate [facility] Work Phone: 12-10-2022 Cognitive function Voice/Name [facility] Work Phone: 12-08-2022 Cognitive function Voice/Name [facility] Work Phone: Clinical Notes 12-18-2024 to 05-28-2025 Note Date & Type Note Facility 05-28-2025 Radiology Diagnostic study note [facility] Imaging Services [address] [place] [address] Brain/Head without Contrast MR#: [id number] Acct: [id number] Name: SHARON LOVE Rep #: [id number] : 1940 F 84 From: Rhett Juárez MD PCP: Dr. Joe Merino MD Status: REG CL I Study:Brain/Head without Contrast Date of Exa m: 05/28/25 Exam# [id number] Ordering Dr: Yin Rosales NP PROCEDURE: BRAIN/HEAD WITHOUT CONTRAST 05/28/2025 REASON FOR EXAM: LEFT FACIAL NUMBNESS TECHNIQUE: BRAIN/HEAD WITHOUT CONTRAST Coronal and Sagittal reconstruction series were provided. One or more dose reduction techniques were used (e.g., Automated exposure control, adjustment of the mA and/or kV according to patient size, use of iterative reconstruction technique. RADIATION DOSE SUMMARY: CTDlvol: 44.99 mGy DLP: 779.24 mGycm COMPARISON: None FINDINGS: Brain: Within normal limits for age CSF Spaces: Mild generalized cerebral atrophy evidence of remote periventricularinfarcts. Sinuses/Mastoids: Clear at visualized levels Bones: No fracture or suspicious osseous lesion CT/Brain/Head without Contrast IMPRESSION: Age consistent changes, no acute findings Reading Location: [facility] CC: Yin WOLFE NP-Mumtaz Rosales; Dr. 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 Joe Merino MD Status: REG CL I Study:Chest PA and Lateral Date of Exam: 02/25/25 Exam# [id number] Ordering Dr: Radhika Merino MD PROCEDURE: CHEST [...] No evidence of acute disease. Reading Location: [id number] CC: Dr. 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 [facility]01-22-2025 Evaluation note* Diagnosis Onset Date Resolution Status Admit Date Atherosclerotic heart diseas e of [place] coronary artery without angina pectoris acute December 18 1:46pm HLD (hyperlipidemia) acute 2024 1:46pm Essential hypertension chronic [facility] 2024 1:46pm [facility] Work Phone: 1(850) 985-499201-22-2025 Evaluation note* Diagnosis Onset Date Resolution Status Admit Date Atherosclerotic heart diseas e of [place] coronary artery without angina pectoris acute December 18 1:46pm HLD (hyperlipidemia) acute 2024 1:46pm Essential hypertension chronic [facility] 2024 1:46pm Atherosclerotic heart diseas e of [place] coronary artery without angina pectoris acute March 27, 2025 9: 11am HLD (hyperlipidemia) acute March 27, 2025 9:11am Tachycardia acute March 27, 2025 9:11am Essential hypertension chronic [place] 2024 9:11am [facility] Work Phone: Discharge summary Author Virgil Bazzi [facility] March 21, 2023 5:38am Note Date/Time March 21, 2023 4:5 9am [facility] Medical Records Department [address] [place] [address] Emergency Department Summary 03/21/23 MR#: [id number] Acct: [id number] Name: SHARON LOVE Rep #:[id number] : [...] again and therefore comes in for evaluation. [facility] Medical History Abnormal bruising Dehydration Essential [...] Type Severity Reaction Status Date / Time [id number]-[id number] Reductase Allergy Severe Pain in Verified 03/21/23 [...] (Auto) 46.7 L Lymph % (Auto) 39.9 [place] % (Auto) 9.3 Eos % (Auto) 2.9 [...] Clarity Clear Urine pH 6.5 Ur Specific [place] 1.010 Urine Protein Negative Urine Glucose (UA) [...] (Auto) Neut % (Auto) Lymph % (Auto) [place] % (Auto) Eos % (Auto) Baso % (Auto) Absolute Neuts (auto) Absolute Lymphs (auto) Nucleated RBC % Sodium Potassium Chloride Carbon Dioxide Anion Gap BUN Creatinine Estim Creat Clear Calc Est GFR (MDRD) Af Amer Est GFR (MDRD) Non-Af BUN/Creatinine Ratio Glucose Calcium Magnesium Troponin I High Sens 6 Urine Color Urine Clarity Urine pH Ur Specific [place] Urine Protein Urine Glucose (UA) Urine Ketones [...] musculoskeletal in nature. Heat the area andtake rrjb-jxn-rhlfdfk pain medication for symptom control. Continue all of yourhome medications as previously directed. Return to the ER should you have any further concerns Disposition Disposition: Home, Self Care What to do if you have Problems For any increased pain, shortness of breath, bleeding, nausea or vomiting, chestpain, or any unexpected problems, contact your Primary Care Provider. Call [facility] ([phone]) or report to the closest Emergency Room. Call 911 if necessary. 03/21/23 0538 <Electronically signed by Virgil Bazzi DO> Cosigner Signature (if applicable): CC: Dr. Kyara Odonnell MD ~ Signed [facility] Work Phone: evaluation noteNo assessment information available [facility] Work Phone: evaluation note* Diagnosis Onset Date Resolution Status Chest pain acute NSTEMI, initial episode of care acute Unstable angina acute [facility] Work Phone: evaluation note* Diagnosis Onset Date Resolution Status Chest pain acute HLD (hyperlipidemia) acute NSTEMI, initial episode of care acute Unstable angina acute HTN (hypertension) chronic [facility] Work Phone: evaluation note* Diagnosis Onset Date Resolution Status Chest pain acute HLD (hyperlipidemia) acute NSTEMI, initial episode of care acute Unstable angina acute [facility] Work Phone: Evaluation note* Diagnosis Onset Date Resolution Status Chest pain resolved NSTEMI, initial episode of care resolved [facility] Work Phone: Evaluation note* Diagnosis Onset Date Resolution Status Chest pain resolved NSTEMI, initial episode of care resolved Atherosclerotic heart diseas e of [place] coronary artery without angina pectoris acute Irregular heart beat acute Essential hypertension chron ic [facility] Work Phone: evaluation note* Diagnosis Onset Date Resolution Status HLD (hyperlipidemia) acute Chest pain resolved NSTEMI, initial episode of care resolved Atherosclerotic heart diseas e of [place] coronary artery without angina pectoris acute Irregular heart beat acute Essential hypertension chron ic Atherosclerotic heart diseas e of [place] coronary artery without angina pectoris acute HLD (hyperlipidemia) acute Essential hypertension [facility] Work Phone: Evaluation note* Diagnosis Onset Date Resolution Status Atherosclerotic heart diseas e of [place] coronary artery without angina pectoris acute Irregular heart beat acute Essential hypertension chron ic Atherosclerotic heart diseas e of [place] coronary artery without angina pectoris acute HLD (hyperlipidemia) acute Essential hypertension [facility] Work Phone: Evaluation note* Diagnosis Onset Date Resolution Status Atherosclerotic heart diseas e of [place] coronary artery without angina pectoris acute HLD (hyperlipidemia) acute Essential hypertension [facility] Work Phone: Hospital Discharge instructions Additional Instructions Your work-up today showed no signs of heart damage or kidney damage. Please continue to take your medications as directed by your doctor and return to the ER should [facility] Discharge instructions Additional Instructions Your work-up today does not show any signs of heart damage and your physical exam indicates this is most likely musculoskeletal in nature. Heat the area and take swvz-wux-uzgrfrw pain medication for symptom control. Continue all of your home medications as previously directed. Return to the ER should you have any [facility] Work Phone: Reason for referral (narrative)No reason for referral information available[facility] Work Phone: Summary Purpose Family History No [...] Yes August 09, 2021 7:44am Power of [employer] St[employer] Rep[employer]r Yes July 7:44am Advance Directive Response Recorded Date/ Time Advance Directives Yes December 09, 2016 6:30pm Living Will Yes December 08 6:58pm Power of [employer] Stamper [employer] Repairer Yes December 08, 2022 6:58pm Name of Medical Power of Mold Stamper And Repairer . December 08, 2022 6:58pm Advance Directive Response Recorded Date/ Time Name of Medical Power of Mold Stamper And Repairer Pollo Love December 08, 2022 11:22pm Advance Directives Yes December 09, 2016 6:30pm Living Will Yes December 08 11:22pm Power of [employer] Stamper [employer] Repairer Yes December 08, 2022 11:22pm Advance Directive Response Recorded Date/ Time Name of Medical Power of Mold Stamper And Repairer Pollo Love December 08, 2022 11:22pm Name of Medical Power of [employer] Stamper And Repairer POLLO LOVE [facility] December 15, 2022 12:17am Advance Directives Yes December 12, 2022 9:54am Living Will Yes December 15 12:17am Power of [employer] Stamper [employer] Repairer Yes December 15, 2022 12:17am Advance Directive Response Recorded Date/ Time Name of Medical Power of Mold Stamper And Repairer Pollo Love December 08, 2022 11:22pm Advance Directives on File No 2022 10:16am Advance Directives Yes December 12, 2022 9:54am Living Will No December 19 10:16am Power of [employer] Stamper [employer] Repairer No December 19, 2022 10:16am Name of Medical Power of [employer] Stamper [employer] Repairer POLLO KATE [facility] December 15, 2022 12:17am Advance Directive Response Recorded Date/ Time Name of Medical Power of [employer] Stamper And Repairer Pollo Love December 09, 2022 12:22am Advance Directives on File No Héctor grier 2022 11:16am Name of Medical Power of [employer] St[employer]per [employer] Repairer POLLO ENGLELEONEL JANNA BRUMFIELD December 15, 2022 1:17am Name of Medical Power of [employer] Stamper [employer] Repairer Winston Kate March 21, 2023 3:18am Advance Directives Yes December 12, 2022 10:54am Living Will Yes March 21, 2023 3:18am Power of [employer] Stamper And Repairer Yes March 21 3:18am Advance Directive Response Recorded Date/ Time Name of Medical Power of Mold Stamper And Repairer Winston Love March 21, 2023 3:18am Advance Directives Yes December 12, 2022 10:54am Living Will Yes March 21, 2023 3:18am Power of [employer] Stamper [employer] Repairer Yes March 21 3:18am Advance Directive Response Recorded Date/ Time Advance Directives Yes December 12, 2022 10:54am Living Will Yes March 21, 2023 3:18am Power of [employer] Stamper And Repairer Yes March 21 3:18am Advance Directive Response Recorded Date/ Time Advance Directives Yes December 12, 2022 9:54am Living Will Yes March 21, 2023 2:18am Power of [employer] Stamper And Repairer Yes March 21 2:18am Advance Directive Response Recorded Date/ Time Living Will Yes March 21, 2023 3:18am Do you have a Healthcare Power of Mold Stamper And Repairer? Yes March 21, 2023 3:18am Advance Directives Yes December 12, 2022 10:54am Advance Directive Response Recorded Date/ Time Advance [...] post cath Bigg HYPERTENTION PCI w/coronary stenting, PR NonSTEMI large bruises back of left leg L.Lorson EORDER PCI w/coronary stenting Reason for Visit Chest pain NSTEMI, initial episode of care Chief Complaint NSTEMI CP NSTEMI NSTEMI NSTEMI NSTEMI Right foot dark post cath L.Lorson HYPERTENTION PCI w/coronary stenting, PR NonSTEMI large bruises back of left leg L.Lorson EORDER PCI w/coronary stenting PCI w/coronary stenting Reason for Visit Chest pain NSTEMI, initial episode of care Chief Complaint NSTEMI CP NSTEMI NSTEMI NSTEMI NSTEMI Right foot dark post cath L.Lorson HYPERTENTION PCI w/coronary stenting, PR NonSTEMI large bruises back of left leg L.Lorson EORDER PCI w/coronary stenting PCI w/coronary stenting S/P NSTEMI/PCI ASHD, HTN, DIZZINESS *LUZ TO READ* Reason for Visit Chest pain NSTEMI, initial episode of care Atherosclerotic heart disease of [place] coronary artery without angina pectoris Irregular heart beat Essential hypertension Chief Complaint NSTEMI CP NSTEMI NSTEMI NSTEMI NSTEMI Right foot dark post cath L.Lorson HYPERTENTION PCI w/coronary stenting, PR NonSTEMI large bruises back of left leg L.Lorson EORDER PCI w/coronary stenting PCI w/coronary stenting S/P NSTEMI/PCI ASHD, HTN, DIZZINESS *LUZ TO READ* 6 wk FU INT LABS PCI w/coronary stenting back pain, numbness Reason for Visit HLD (hyperlipidemia) Chest pain NSTEMI, initial episode of care Atherosclerotic heart disease of [place] coronary artery without angina pectoris Irregular heart beat Essential hypertension Atherosclerotic heart disease of [place] coronary artery without angina pectoris HLD (hyperlipidemia) Essential hypertension Chief Complaint NSTEMI CP NSTEMI NSTEMI NSTEMI NSTEMI Right foot dark post cath L.Lorson HYPERTENTION PCI w/coronary stenting, PR NonSTEMI large bruises back of left leg L.Lorson EORDER PCI w/coronary stenting PCI w/coronary stenting S/P NSTEMI/PCI ASHD, HTN, DIZZINESS *LUZ TO READ* 6 wk FU INT LABS back pain, numbness PCI w/coronary stenting Reason for Visit HLD (hyperlipidemia) Chest pain NSTEMI, initial episode of care Atherosclerotic heart disease of [place] coronary artery without angina pectoris Irregular heart beat Essential hypertension Atherosclerotic heart disease of [place] coronary artery without angina pectoris HLD (hyperlipidemia) Essential hypertension Chief Complaint PCI w/coronary stent ing S/P NSTEMI/PCI ASHD, HTN, DIZZINESS *LUZ TO READ* 6 wk FU INT LABS back pain, numbness PCI w/coronary stenting PCI w/coronary stenting Reason for Visit Atherosclerotic hear t disease of [place] coronary artery without angina pectoris Irregular heart beat Essential hypertension Atherosclerotic heart disease of [place] coronary artery without angina pectoris HLD (hyperlipidemia) Essential hypertension Chief Complaint 6 wk FU INT LABS back pain, numbness PCI w/coronary stenting PCI w/coronary stenting SCREENING TACHYCARDIA AND PALPITATIONS PCI w/coronary stenting Reason for Visit Atherosclerotic hear t disease of [place] coronary artery without angina pectoris HLD (hyperlipidemia) [...] Admit Date Atherosclerotic heart diseas e of [place] coronary artery without angina pectoris December 18, 2024 1:46pm HLD (hyperlipidemia) December 18, 2024 1:46pm Essential hypertension December 18 1:46pm Chief Complaint Admit Date 6 M FU December 18, 2024 1 :46pm E-ORDER February 25, 2025 1:34 pm Fast Heart Rate (Angelique) March 27, 2025 9:1 1am Reason for Visit Admit Date Atherosclerotic heart diseas e of [place] coronary artery without angina pectoris December 18, 2024 1:46pm HLD (hyperlipidemia) December 18, 2024 1:46pm Essential hypertension December 18 1:46pm Atherosclerotic heart diseas e of [place] coronary artery without angina pectoris March 27, 2025 9:11am HLD (hyperlipidemia) March 27, 2025 9:11a m Tachycardia March 27, 2025 9:11am Essential hypertension March 27, 2025 9:1 1am Chief Complaint Admit Date E-ORDER February 25, 2025 1:34 pm Fast Heart Rate (Angelique) March 27, 2025 9:1 1am BILAT LOWER EXT NEUROPATHY May 07 8:18am BILAT LOWER EXT NEUROPATHY May 07 12:45pm Reason for Visit Admit Date Atherosclerotic heart diseas e of [place] coronary artery without angina pectoris March 27, 2025 9:11am HLD (hyperlipidemia) March 27, 2025 9:11a m Tachycardia March 27, 2025 9:11am Essential hypertension March 27, 2025 9:1 1am Chief Complaint Admit Date E-ORDER February 25, 2025 1:34 pm Fast Heart Rate (Angelique) March 27, 2025 9:1 1am BILAT LOWER EXT NEUROPATHY May 07 8:18am BILAT LOWER EXT NEUROPATHY May 07 12:45pm Anesthesia of skin May 28, 2025 11:44 am Additional Source Comments INFORMATION SOURCE (unrecogn ized section and content) DATE CREATED AUTHOR 05/18/2018 [facility] DATE CREATED AUTHOR AUTHOR'S ORGANIZ ATION 06/08/2025 [facility] Goals (unrecognized section and content) Goals may [...] 18, 2024 End: December 18, 2024 Debra Goodman PA, PA Attending Provider Active Start: December 18, 2024 End: December 18, 2024 Team Status: Inactive Member Role Status Dates Joe Merino MD Primary Care Provider Active St [...] 27, 2025 End: March 27, 2025 Debra Goodman PA, PA Attending Provider Active Start: March 27, 2025 End: March 27, 2025 Team Status: Inactive Member Role Status Bartolo Merino MD Primary Care Provider Active St art: March 27, 2025 End: March 27, 2025 Debra Goodman PA, PA Attending Provider Active Start: March 27, 2025 End: March 27, 2025 Debra Goodman PA, PA Referring Provider Active Start: March 27, 2025 End: March 27, 2025 Team Status: Active Member Role Status Bartolo Merino MD Primary Care Provider Active Team Status: Inactive Member Role Status Bartolo Merino MD Primary Care Provider Active St art: May 07, 2025 End: May 07, 2025 Dr. Lazaro Calles DPM Attending Provider Active Start: May 07, 2025 End: May 07, 2025 Dr. Lazaro Calles DPM Referring Provider Active Start: May 07, 2025 End: May 07, 2025 Team Status: Active Member Role Status Bartolo Merino MD Primary Care Provider Active St art: May 07, 2025 Dr. Lazaro Calles DPM Referring Provider Active Start: May 07, 2025 Dr. Lazaro Calles DPM Other Provider Active Start: May 07, 2025 Dr. Abigail Guerrero MD Attending Provider Active S tart: May 07, 2025 Team Status: Active Member Role/Relationship Status Bartolo Merino MD Primary Care Provider Active Team Status: Inactive Member Role/Relationship Status Bartolo Merino MD Primary Care Provider Active St art: February 25, 2025 End: February 25, 2025 Joe Merino MD Attending Provider Active Start : February 25, 2025 End: February 25, 2025 Joe Merino MD Referring Provider Active Start : February 25, 2025 End: February 25, 2025 Team Status: Inactive Member Role/Relationship Status Bartolo Merino MD Primary Care Provider Active St art: March 27, 2025 End: March 27, 2025 Joe Merino MD Referring Provider Active Start : March 27, 2025 End: March 27, 2025 Debra GODFREY PA Attending Provider Active Start: March 27, 2025 End: March 27, 2025 Team Status: Inactive Member Role/Relationship Status Bartolo Merino MD Primary Care Provider Active St art: March 27, 2025 End: March 27, 2025 EPIFANIO Marquez Attending Provider Active Start: March 27, 2025 End: March 27, 2025 EPIFANIO Marquez Referring Provider Active Start: March 27, 2025 End: March 27, 2025 Team Status: Inactive Member Role/Relationship Status Bartolo Merino MD Primary Care Provider Active St art: May 07, 2025 End: May 07, 2025 Dr. Lazaro Calles DPM Attending Provider Active Start: May 07, 2025 End: May 07, 2025 Dr. Lazaro Calles DPM Referring Provider Active Start: May 07, 2025 End: May 07, 2025 Team Status: Active Member Role/Relationship Status Bartolo Merino MD Primary Care Provider Active St art: May 07, 2025 Dr. Lazaro Calles DPM Referring Provider Active Start: May 07, 2025 Dr. Lazaro Calles DPM Other Provider Active Start: May 07, 2025 Dr. Abigail Guerrero MD Attending Provider Active S tart: May 07, 2025 Team Status: Inactive Member Role/Relationship Status Bartolo Merino MD Primary Care Provider Active St art: May 28, 2025 End: May 28, 2025 Yin Rosales NP, NP-C Attending Provider Active Start: May 28, 2025 End: May 28, 2025 Yin Rosales NP, NP-C Referring Provider Active Start: May 28, 2025 End: May 28, 2025 FOR RECORDS PERTAINING TO PATIENTS WHO [...] BE BASED ON THE PRIMARY CLINICAL RECORDS. [facility]. provides no warranty or guarantee of the accuracy or completeness of information in this document.
[2025-06-12 20:07] LABS: Vitamin D,25 Hydroxy 54.0 ng/mL (30-100)
== END | disposition home or self-care (01) ==
PROVIDERS: PCP Family Medicine; Referring Provider Family Medicine; Visit Provider Family Medicine
DX: I10 Essential (primary) hypertension (principal); E55.9 Vitamin D deficiency, unspecified
CPT/HCPCS: 36415; 80048; 82306

== ENCOUNTER → 2025-07-07 | Outpatient (CLI) | payer MEDICARE, SELFPAY ==
[2022-12-19 10:30] VITALS: BMI 23.4
== END | disposition home or self-care (01) ==
PROVIDERS: PCP Family Medicine; Referring Provider Family Medicine; Visit Provider Family Medicine
DX: Z12.31 Encounter for screening mammogram for malignant neoplasm of breast (principal)
CPT/HCPCS: 77063; 77067

== ENCOUNTER 2025-08-01 09:38 | Emergency (ER) | payer MEDICARE, SELFPAY ==
[2022-12-19 10:30] VITALS: BMI 23.4
[2025-08-01 09:39] VITALS: BP 171/90; PULSE 72; RESP 14; TEMP 36.4; O2SAT 99; BMI 23.5
[2025-08-01 09:46] VITALS: O2SAT 97
--- NOTE | 2025-08-01 09:47 | CT_ITS ---
PROCEDURE: BRAIN/HEAD WITHOUT CONTRAST 08/01/2025 REASON FOR EXAM: FALL TECHNIQUE: Procedure Code: CTBR Modality: CT Procedure: BRAIN/HEAD WITHOUT CONTRAST Coronal and Sagittal reconstruction series were provided. One or more dose reduction techniques were used (e.g., Automated exposure control, adjustment of the mA and/or kV according to patient size, use of iterative reconstruction technique. RADIATION DOSE SUMMARY: CTDlvol: Not provided mGy DLP: Not provided mGycm COMPARISON: May 28, 2025 FINDINGS: Brain: There is no evidence of hemorrhage, acute ischemia or mass. No extra- axial fluid collection, midline shift or mass effect. Small focus of hypodensity in the guillen radiata on the left anteriorly. CSF Spaces: Mild generalized cerebral atrophy Sinuses/Mastoids: Clear Bones: No fracture CT/Brain/Head without Contrast IMPRESSION: 1. No evidence of intracranial hemorrhage or acute ischemia. 2. Changes of chronic microvascular ischemia and volume loss. Reading Location: [id number]
--- NOTE | 2025-08-01 09:47 | CT_ITS ---
PROCEDURE: SPINE CERVICAL WITHOUT CONTRAS 08/01/2025 REASON FOR EXAM: FALL Head injury due to a fall. TECHNIQUE: Procedure Code: CTSPC Modality: CT Procedure: SPINE CERVICAL WITHOUT CONTRAS Coronal and Sagittal reconstruction series were provided. One or more dose reduction techniques were used (e.g., Automated exposure control, adjustment of the mA and/or kV according to patient size, use of iterative reconstruction technique. RADIATION DOSE SUMMARY: CTDlvol: 12.63 mGy DLP: 292.5 mGycm COMPARISON: None FINDINGS: Alignment: No evidence of scoliosis. Vertebrae: No vertebral fracture. Multilevel spondylosis. Soft Tissues: No prevertebral soft tissue swelling. Other: C1-2: Mild degenerative changes at the atlantoaxial joint. C2-3: Minimal anterior listhesis of C2 on C3 most likely secondary to the facet joint osteoarthritis and hypertrophy worse on the left side. Moderate degree of left neural foraminal stenosis. C3-4: Marked degree of disc space narrowing and spondylosis. Uncovertebral arthrosis. Bilateral neural foraminal stenosis worse on the left side. C4-5: Marked degree of disc space narrowing. Spondylosis. Uncovertebral arthrosis and bilateral facet joint arthropathy. Mild degree of bilateral neural foraminal stenosis. C5-6: Marked degree of disc space narrowing. Spondylosis. Uncovertebral arthrosis. Mild bilateral neural foraminal stenosis. C6-7: Marked degree of disc space narrowing. Spondylosis. Uncovertebral arthrosis. Bilateral neural foraminal stenosis. C7-T1: Unremarkable CT/Spine Cervical without Contras IMPRESSION: DEGENERATIVE CHANGES OF THE CERVICAL SPINE. NO EVIDENCE OF SIGNIFICANT OSSEOUS CENTRAL CANAL OR NEURAL FORAMINAL STENOSIS. Reading Location: [place] [id number]
--- NOTE | 2025-08-01 09:48 | EX.ED.DYSGE1 ---
HPI History of Present Illness Chief Complaint: Fall Narrative Narrative: Patient is a 84-year-old female with past medical history of vertigo, hyperlipidemia, hypertension who presented to the emergency department the chief complaint of head injury. Patient states that she was working out at [employer] and she was attempting to get off the treadmill when she was heading the wrong button to stop this and this caused her to fall strike the right side of her head. States that a family member is in the hospital currently with a head bleed and she is concerned about this therefore she came here to be evaluated. Patient denies any blood thinning medications. Patient states that she did not lose consciousness she members entire event and has no other pain. States that she does feel little bit off balance however she states that she has a history of vertigo and this feels similar to her vertigo. [facility] Medical History Abnormal bruising Myocardial infarct Essential hypertension Unstable angina Sensorineural hearing loss Dehydration Hypokalemia HLD (hyperlipidemia) Vertigo Intractable nausea and vomiting Home Medications ?Medication ?Instructions ?Recorded ?Last Taken ?Type aspirin 81 mg chewable tablet 81 mg PO QHS heart health 02/15/14 08/01/25 History glucosamine sulfate 2KCl 500 mg 1,000 mg PO BID supplement 02/15/14 08/01/25 History capsule (Glucosamine Relief) multivitamin with folic acid 400 1 tab PO DAILY supplement 02/15/14 08/01/25 History mcg tablet (Thera) nitroglycerin 0.4 mg sublingual 0.4 mg sublingual Q5M PRN Chest 12/10/22 Unknown Rx tablet pain #30 tabs losartan 100 mg tablet 100 mg PO QHS Pt going out of 12/05/23 08/01/25 Rx state for 3 months #90 tabs calcium carbonate (Calcium 600) 600 mg PO DAILY 06/19/24 08/01/25 History cholecalciferol (vitamin D3) 25 25 mcg PO DAILY 06/19/24 08/01/25 History mcg (1,000 unit) tablet collagen 1,000 mg PO BID 06/19/24 08/01/25 History vitamin E 670 mg (1,000 unit) 670 mg PO DAILY 06/19/24 08/01/25 History capsule coffee extract 100 mg-phosphatidyl cap PO 03/27/25 08/01/25 History serine 100 mg capsule (Neuriva Original) hydrochlorothiazide 12.5 mg tablet 12.5 mg PO DAILY #90 tabs 03/27/25 08/01/25 Rx phytosterol 300 mg-pantethine 100 1 cap PO BID 03/27/25 Unknown History mg capsule (CholestOff Complete) metoprolol succinate 25 mg 25 mg PO QHS #90 tabs 04/04/25 08/01/25 Rx tablet,extended release 24 hr amlodipine 2.5 mg tablet 5 mg PO DAILY blood pressure 08/01/25 08/01/25 History meclizine 25 mg tablet 25 mg PO BID PRN dizziness #20 tabs 08/01/25 Unknown Rx Allergy/AdvReac Type Severity Reaction Status Date / Time Edyrgwk-CZI-SgE Reductase Allergy Severe Pain in Verified 08/01/25 09:48 Inhibitor joints Penicillins Allergy Unknown Verified 08/01/25 09:48 metoprolol AdvReac Intermediate Other Verified 08/01/25 09:48 Family History Sister Pacemaker Father CVA (cerebral vascular accident) Surgical History History of cholecystectomy History of coronary artery stent placement (12/09/22) H/O: hysterectomy Social History Smoking Status: Never smoker alcohol intake: never substance use type: does not use caffeine: No ROS ROS ED ROS Narrative Constitutional: Complains of vertigo symptoms, denies any lightheadedness, fevers or chills Eyes: Denies double vision Cardiovascular: Denies chest pain Respiratory: Denies shortness of Abdomen: Denies nausea vomiting diarrhea Neurological: Denies numbness, tingling, weakness Skin: Denies any rashes or lesions EXAM Physical Exam Narrative Exam Narrative: General: Patient lying in bed rest comfortably did not appear to be in acute distress Head: Atraumatic, normocephalic Eyes: PERRL bilaterally, EOMI bilaterally, no conjunctival injection noted Neck: Soft, supple, trachea midline Cardiovascular: Regular rate and rhythm Respiratory: Clear to auscultation bilaterally Abdomen: Soft, nondistended, no tenderness to palpation Musculoskeletal: All bony prominences palpated joints taken through full range of motion no pain elicited Extremities: +5/5 strength noted in the bilateral upper and lower extremities Neurological: Patient following commands knew that she was at [facility] year is 2024 NIH of 0 GCS 15 Skin: Warm, dry, intact no rashes or lesions noted Const Vital Signs: 08/01/25 09:39 08/01/25 09:46 08/01/25 11:08 Temperature 97.6 F L Temperature Source Temporal Pulse Rate 72 65 Respiratory Rate 14 16 Respiratory Effort Normal Respiratory Depth Normal Respiratory Pattern Normal Blood Pressure 171/90 H 163/82 H Blood Pressure Mean 117 109 Pulse Ox 99 97 98 Oxygen Delivery Method Room Air Room Air Room Air MDM MDM MDM Narrative Medical decision making narrative: Patient is a 84-year-old female who presented to the emergency department after falling while on the treadmill striking her head. On the differential diagnose includes but not limited to intracranial hemorrhage, cervical spine fracture, concussion. Once the workup is obtained reviewed she will be reevaluated. Patient CT head and brain without contrast showed no acute intracranial hemorrhage or acute ischemia chronic microvascular ischemia and volume loss noted. Patient CT cervical spine reviewed and showed degenerative changes cervical spine no evidence of osseous central canal or neuro foraminal stenosis. Patient states that she was still having some dizziness therefore she was given meclizine. On reevaluation again she is feeling much improved would like to go home at this point time. Patient be given prescription for meclizine and was advised to use this as prescribed. She is vies return with worsening symptoms or concerns. She is agreeable spinal course concerns answered she was discharged home in stable condition. Patient ambulated well here in the emergency department. Radiography Diagnostic Testing: Clinical Impression(s) from Imaging Studies Brain CT 08/01/25 09:47 IMPRESSION: 1. No evidence of intracranial hemorrhage or acute ischemia. 2. Changes of chronic microvascular ischemia and volume loss. Reading Location: [id number] Cervical Spine CT 08/01/25 09:47 IMPRESSION: DEGENERATIVE CHANGES OF THE CERVICAL SPINE. NO EVIDENCE OF SIGNIFICANT OSSEOUS CENTRAL CANAL OR NEURAL FORAMINAL STENOSIS. Reading Location: [facility] Discharge Plan Triage Chief Complaint: Fall ED Provider: Grzegorz Jamison Dx/Rx/DC Orders Clinical Impression: Closed head injury without loss of consciousness, Essential hypertension, Hx of vertigo Prescriptions: New meclizine 25 mg tablet 25 mg PO BID PRN (Reason: dizziness) Qty: 20 0RF No Action calcium carbonate [Calcium 600] 600 mg calcium (1,500 mg) tablet 600 mg PO DAILY collagen 1,000 mg PO BID cholecalciferol (vitamin D3) 25 mcg (1,000 unit) tablet 25 mcg PO DAILY vitamin E 670 mg (1,000 unit) capsule 670 mg PO DAILY Neuriva Original 100-100 mg capsule PO CholestOff Complete 300-100 mg capsule 1 cap PO BID aspirin 81 MG tablet,chewable 81 mg PO QHS Patient Comments: HEART/BLOOD THINNER Glucosamine Relief 500 MG capsule 1,000 mg PO BID Patient Comments: VITAMIN/HERB multivitamin with folic acid [Thera] 1 TABLET tablet 1 tab PO DAILY Patient Comments: VITAMIN nitroglycerin 0.4 mg Tablet, Sublingual 0.4 mg sublingual Q5M PRN (Reason: Chest pain) Qty: 30 0RF amlodipine 2.5 mg tablet 5 mg PO DAILY losartan 100 mg tablet 100 mg PO QHS Qty: 90 3RF hydrochlorothiazide 12.5 mg tablet 12.5 mg PO DAILY Qty: 90 3RF metoprolol succinate 25 mg tablet extended release 24 hr 25 mg PO QHS Qty: 90 3RF Primary Care Provider: Joe Merino Referrals: Joe Merino MD [Primary Care Provider] - Activity Restrictions/Additional Instructions: Your CT of your head and your neck did not show any acute broken bones no bleeding in your head. Use the prescription for your vertigo that was sent to your pharmacy as prescribed. Return with worsening symptoms or any other concerns. Print Language: Norwegian Disposition Disposition: Home, Self Care
[2025-08-01 11:08] VITALS: BP 163/82; PULSE 65; RESP 16; O2SAT 98
[2025-08-01 12:52] VITALS: BP 152/84; PULSE 61; RESP 16; TEMP 36.8; O2SAT 99
== END 2025-08-01 12:53 | disposition home or self-care (01) ==
PROVIDERS: Emergency Provider Emergency Medicine; PCP Family Medicine; Visit Provider Emergency Medicine
DX: S09.90XA Unspecified injury of head, initial encounter (principal); I10 Essential (primary) hypertension; E78.5 Hyperlipidemia, unspecified; M47.812 Spondylosis without myelopathy or radiculopathy, cervical region; W17.89XA Other fall from one level to another, initial encounter; Y93.A9 Activity, other involving cardiorespiratory exercise; Y92.89 Other specified places as the place of occurrence of the external cause; Z95.5 Presence of coronary angioplasty implant and graft; Z90.710 Acquired absence of both cervix and uterus; Z90.49 Acquired absence of other specified parts of digestive tract
CPT/HCPCS: 70450; 72125; 99282

== ENCOUNTER → 2025-08-26 | Outpatient (CLI) | payer MEDICARE, SELFPAY ==
[2022-12-19 10:30] VITALS: BMI 23.4
[2025-08-26 14:17] LABS: AST(SGOT) 26 U/L (<=31); Alanine Aminotransfer ALT/SGPT 15 U/L (<=34); Albumin, Serum 4.4 g/dL (3.4-4.8); Alkaline Phosphatase 76 U/L (35-104); Bilirubin, Direct 0.37 mg/dL (0.00-0.30); Cholesterol 212 mg/dL (<=200); Globulin 2.8 g/dL (2.2-4.2); Low Density Lipoprotein Calc. 111 mg/dL; Triglycerides 287 mg/dL; Very Low Density Lipoprotein 57 mg/dL (5-40); cholesterol:hdl ratio screen 4.90
== END | disposition home or self-care (01) ==
LOC: LAB 12:06
PROVIDERS: PCP Family Medicine; Referring Provider Physician Assistant Medical; Visit Provider Physician Assistant Medical
DX: I10 Essential (primary) hypertension (principal); E78.5 Hyperlipidemia, unspecified; Z95.5 Presence of coronary angioplasty implant and graft
CPT/HCPCS: 36415; 80061; 80076

== ENCOUNTER 2025-09-02 02:28 | Emergency (ER) | payer MEDICARE, SELFPAY ==
[2022-12-19 10:30] VITALS: BMI 23.4
[2025-09-02 02:28] VITALS: BP 153/96; PULSE 76; RESP 15; TEMP 36.9; O2SAT 97; BMI 23.8
--- NOTE | 2025-09-02 02:52 | RAD_ITS ---
PROCEDURE: LUMBAR SPINE 2 OR 3 VIEWS 09/02/2025 REASON FOR EXAM: FALL TECHNIQUE: Procedure Code: RADSPLL Modality: DX Procedure: LUMBAR SPINE 2 OR 3 VIEWS COMPARISON: None. FINDINGS: Mild osteopenia. Mild degenerative levoscoliosis apex at L3. Metallic clips are noted in the right upper quadrant. Mild amount of fecal residue in the large bowels. There are diffuse spondylotic changes. Findings are demonstrated to by diffuse disc space narrowing, osteophyte formation and degenerative endplate sclerosis. There is diffuse facet joint arthropathy with secondary bilateral neural foramina narrowing. No fracture or dislocation is seen. No aggressive lytic or blastic bony lesion is noted. RAD/Lumbar Spine 2 or 3 Views IMPRESSION: No evidence for acute abnormality. Reading Location: [facility]
[2025-09-02] MEDS: Orphenadrine 100 MG Tablet PO (02:58)
--- NOTE | 2025-09-02 03:15 | RAD_ITS ---
PROCEDURE: SACRUM-COCCYX MIN 2 VIEWS 09/02/2025 REASON FOR EXAM: FALL TECHNIQUE: Procedure Code: RADSAC Modality: DX Procedure: SACRUM-COCCYX MIN 2 VIEWS FINDINGS: Interval appearance of acute minimally depressed fracture of the anterior cortex of S5 vertebral body. No subsequent canal stenosis. No secondary dislocation of the sacroiliac joints. 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 Moderate osteopenia. Mildly increased angulation at the level of the sacrococcygeal junction, chronic finding. Normal bilateral sacral ala. Normal coccygeal segments. RAD/Sacrum-Coccyx min 2 Views IMPRESSION: Interval appearance of acute minimally depressed fracture of the anterior alex x of S5 vertebral body. No subsequent canal stenosis. No secondary dislocation of the sacroiliac joints. 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 Moderate osteopenia. Reading Location[facility]
--- NOTE | 2025-09-02 04:43 | EX.ED.DYSGE1 ---
HPI History of Present Illness Chief Complaint: Fall Informant: patient and spouse/S.O. Narrative Narrative: Patient is 84-year-old female with past medical history of hypertension and hyperlipidemia. She states around 930 last night she got up from her chair in order to walk to her bedroom to go to sleep. She states she lost her balance and fell landing directly on her buttocks and then rolling backwards. She denies striking her head or any loss of consciousness. She denies any history of bleeding disorder or blood thinner use. She states she was able to go to sleep and then awoke to go to the bathroom. She states after using the restroom as she was going back to her bed she had increasing pain to her low back. She states the pain does not radiate but with the recent fall and now pain there was concern for internal injury/fracture and therefore she presents for evaluation. [facility] Medical History Abnormal bruising Myocardial infarct Essential hypertension Unstable angina Sensorineural hearing loss Dehydration Hypokalemia HLD (hyperlipidemia) Vertigo Intractable nausea and vomiting Home Medications ?Medication ?Instructions ?Recorded ?Last Taken ?Type aspirin 81 mg chewable tablet 81 mg PO QHS heart health 02/15/14 08/01/25 History glucosamine sulfate 2KCl 500 mg 1,000 mg PO BID supplement 02/15/14 08/01/25 History capsule (Glucosamine Relief) multivitamin with folic acid 400 1 tab PO DAILY supplement 02/15/14 08/01/25 History mcg tablet (Thera) losartan 100 mg tablet 100 mg PO QHS Pt going out of 12/05/23 08/01/25 Rx state for 3 months #90 tabs calcium carbonate (Calcium 600) 600 mg PO DAILY 06/19/24 08/01/25 History cholecalciferol (vitamin D3) 25 25 mcg PO DAILY 06/19/24 08/01/25 History mcg (1,000 unit) tablet collagen 1,000 mg PO BID 06/19/24 08/01/25 History vitamin E 670 mg (1,000 unit) 670 mg PO DAILY 06/19/24 08/01/25 History capsule coffee extract 100 mg-phosphatidyl cap PO 03/27/25 08/01/25 History serine 100 mg capsule (Neuriva Original) hydrochlorothiazide 12.5 mg tablet 12.5 mg PO DAILY #90 tabs 03/27/25 08/01/25 Rx phytosterol 300 mg-pantethine 100 1 cap PO BID 03/27/25 Unknown History mg capsule (CholestOff Complete) metoprolol succinate 25 mg 25 mg PO QHS #90 tabs 04/04/25 08/01/25 Rx tablet,extended release 24 hr amlodipine 2.5 mg tablet 5 mg PO DAILY blood pressure 08/01/25 08/01/25 History nitroglycerin 0.4 mg sublingual 0.4 mg sublingual Q5M PRN Chest 08/26/25 Unknown Rx tablet pain #30 tabs evolocumab 140 mg/mL subcutaneous 140 mg subcut Q2W #2 mL 08/27/25 Unknown Rx syringe (Repatha Syringe) Allergy/AdvReac Type Severity Reaction Status Date / Time Bygluax-RGY-UxI Reductase Allergy Severe Pain in Verified 09/02/25 02:28 Inhibitor joints Penicillins Allergy Unknown Verified 09/02/25 02:28 metoprolol AdvReac Intermediate Other Verified 09/02/25 02:28 Family History Sister Pacemaker Father CVA (cerebral vascular accident) Surgical History History of cholecystectomy History of coronary artery stent placement (12/09/22) H/O: hysterectomy Social History Smoking Status: Never smoker alcohol intake: never substance use type: does not use caffeine: No ROS ROS ED Constitutional Constitutional ED: Denies chills or fever(s) Eyes Eyes: Denies blurry vision or change in vision ENT ENT ED: Denies sore throat Cardiovascular Cardiovascular: Reports other Details: Negative syncope ; Denies chest pain Respiratory/Chest Respiratory/Chest: Denies cough or dyspnea Gastrointestinal Gastrointestinal: Denies abdominal pain, diarrhea, nausea or vomiting Genitourinary Genitourinary ED: Denies dysuria Musculoskeletal Musculoskeletal: Reports back pain; Denies neck pain Integumentary Denies Abrasions Neurologic Neurologic: Denies headache(s), paresthesias or weakness Hematologic/Lymphatic Hematologic/Lymphatic: Denies easy bleeding or easy bruising EXAM Physical Exam Const Vital Signs: 09/02/25 02:28 09/02/25 02:31 09/02/25 04:49 Temperature 98.5 F 97.7 F L Temperature Source Oral Pulse Rate 76 70 Respiratory Rate 15 16 Respiratory Effort Normal Respiratory Depth Normal Respiratory Pattern Normal Blood Pressure 153/96 H 152/70 H Blood Pressure Mean 115 97 Pulse Ox 97 98 Oxygen Delivery Method Room Air Room Air Positive well nourished and well developed General Appearance ED: well developed; Negative for pallor HEENT HEENT Narrative: Normocephalic atraumatic No signs of depressed or basilar skull fracture Eyes PERRL and EOMs intact bilaterally General Eye ED: Negative for scleral icterus Neck supple Neck Narrative: No bony deformity or step-off of the cervical spine No midline tenderness to palpation Chest Wall palpation of chest normal Resp normal respiratory effort and clear to auscultation bilaterally Cardio regular rate and regular rhythm Back/Spine Back/Spine Narrative: No bony deformity or step-off of the thoracic or lumbar spine There is midline lower lumbar tenderness to palpation No saddle anesthesia; negative straight leg raise; no clonus or Babinski; patellar reflexes are plus 1 out of 4 bilaterally No overlying soft tissue skin changes to suggest trauma or infection Extremity normal to inspection Extremity Narrative: Pelvis is stable and there is no shortening or external rotation of either lower extremity Patient can move all extremities without difficulty or pain Neuro oriented x3, CN's II-XII intact bilaterally and no sensory deficits noted Sensorium / Orientation: alert Motor Exam: strength 5/5 throughout Psych mental status grossly normal Skin no rashes or lesions noted and no wounds General Skin Exam: Negative for jaundice or pallor MDM MDM MDM Narrative Medical decision making narrative: Patient presented to the ER mildly hypertensive but has a past medical history of this. She reported mechanical fall and therefore I felt no need for cardiac or syncope workup. There is no report of head trauma she had no signs of this and does not take a blood thinner or have history of bleeding disorder so my concern for a subarachnoid or subdural hemorrhage or skull fracture is low and I feel no need for head CT. With pain in the low back status post fall there is concern for compression fracture versus burst fracture and therefore x-rays were obtained. X-ray revealed a S5 vertebral body fracture however this is only minimally depressed without signs of burst fracture or retropulsion or nervous compression. The patient's pain is well-controlled on simply [id number] medication such as Tylenol and Motrin. We did discuss increasing her pain medication but she states she is still able to ambulate and is doing well with just [id number] medication and therefore does not want something stronger such as narcotic. She does not have loss of bowel or bladder control to suggest cauda equina. The fracture was minimal and it is closed and she is able to ambulate and tolerate the pain. Therefore there is no need for further intervention but the patient can follow-up with spine surgery to discuss any further imaging or treatment options but at this time is otherwise safe for discharge History & Record Review Discussion w/independent historian: Patient and Significant other Radiography Diagnostic Testing: Clinical Impression(s) from Imaging Studies Lumbar Spine X-Ray 09/02/25 02:52 IMPRESSION: No evidence for acute abnormality. Reading Location: [place] [address] Sacrum and Coccyx X-Ray 09/02/25 03:15 IMPRESSION: Interval appearance of acute minimally depressed fracture of the anterior cortex of S5 vertebral body. No subsequent canal stenosis. No secondary dislocation of the sacroiliac joints. 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 Moderate osteopenia. Reading Location: [place] [address] Lumbar spine x-ray as interpreted by the emergency medicine physician reveals degenerative changes without acute compression fracture or spondylolisthesis Sacrum and coccyx x-ray as interpreted by the emergency medicine physician reveals acute minimally depressed fracture of the S5 vertebral body Discharge Plan Triage Chief Complaint: Fall ED Provider: Virgil Bazzi Dx/Rx/DC Orders Clinical Impression: Vertebral fracture, closed, Essential hypertension, HLD (hyperlipidemia) Instructions: Compression Fx Prescriptions: No Action calcium carbonate [Calcium 600] 600 mg calcium (1,500 mg) tablet 600 mg PO DAILY collagen 1,000 mg PO BID cholecalciferol (vitamin D3) 25 mcg (1,000 unit) tablet 25 mcg PO DAILY vitamin E 670 mg (1,000 unit) capsule 670 mg PO DAILY nitroglycerin 0.4 mg tablet, sublingual 0.4 mg sublingual Q5M PRN (Reason: Chest pain) Qty: 30 1RF Neuriva Original 100-100 mg capsule PO CholestOff Complete 300-100 mg capsule 1 cap PO BID aspirin 81 MG tablet,chewable 81 mg PO QHS Patient Comments: HEART/BLOOD THINNER Glucosamine Relief 500 MG capsule 1,000 mg PO BID Patient Comments: VITAMIN/HERB multivitamin with folic acid [Thera] 1 TABLET tablet 1 tab PO DAILY Patient Comments: VITAMIN amlodipine 2.5 mg tablet 5 mg PO DAILY losartan 100 mg tablet 100 mg PO QHS Qty: 90 3RF hydrochlorothiazide 12.5 mg tablet 12.5 mg PO DAILY Qty: 90 3RF metoprolol succinate 25 mg tablet extended release 24 hr 25 mg PO QHS Qty: 90 3RF Repatha Syringe 140 mg/mL syringe 140 mg subcut Q2W Qty: 2 11RF Primary Care Provider: Joe Merino Referrals: Fahad Domínguez MD [Med Staff - Active Staff, Orthopedics] Referral Note: S5 vertebral fracture Joe Merino MD [Primary Care Provider, Family Practice] Activity Restrictions/Additional Instructions: Your x-ray showed a S5 vertebral fracture. Please follow-up with Dr. Gonzalez to discuss any further treatment modalities or imaging studies if needed. You can try to control the pain with Tylenol and or Motrin and topical treatments such as lidocaine and/or IcyHot. If you have worsening of symptoms or any further concerns please return to the ER for repeat evaluation Print Language: Kazakh Disposition Disposition: Home, Self Care Discharge Date/Time: 09/02/25 04:51
[2025-09-02 04:49] VITALS: BP 152/70; PULSE 70; RESP 16; TEMP 36.5; O2SAT 98
== END 2025-09-02 04:51 | disposition home or self-care (01) ==
PROVIDERS: Emergency Provider Emergency Medicine; PCP Family Medicine; Visit Provider Emergency Medicine
DX: S32.10XA Unspecified fracture of sacrum, initial encounter for closed fracture (principal); M54.50 Low back pain, unspecified; I10 Essential (primary) hypertension; E78.5 Hyperlipidemia, unspecified; Z90.49 Acquired absence of other specified parts of digestive tract; Z90.710 Acquired absence of both cervix and uterus; Z95.5 Presence of coronary angioplasty implant and graft; I25.2 Old myocardial infarction; W07.XXXA Fall from chair, initial encounter
CPT/HCPCS: 72100; 72220; 99282

== ENCOUNTER → 2025-09-02 | Outpatient (CLI) | payer MEDICARE, SELFPAY ==
[2022-12-19 10:30] VITALS: BMI 23.4
[2025-09-02 17:51] LABS: Hematocrit 36.8 % (37-47); Hemoglobin 12.3 g/dL (12.0-15.0); Immature Granulocytes Count 0.030 X10^3/uL (0.0-0.0); Mean Corp Hgb Conc 33.4 g/dL (32-36); Mean Corpuscular Volume 92.7 fL (81-99); Mean Platelet Vol. 10.0 fl (6.2-12.0); NRBC Flagged by Analyzer 0 % (0-5); Platelet Count 275 K/mm3 (150-450); RBC Distribution Width CV 13.0 % (11.6-14.6); RBC Distribution Width SD 44.2 fl (35.1-43.9); Red Blood Count 3.97 M/mm3 (4.2-5.4); White Blood Count 8.4 K/mm3 (4.4-11.0)
[2025-09-02 18:24] LABS: Magnesium 2.2 mg/dL (1.5-2.2)
== END | disposition home or self-care (01) ==
LOC: MFPLAB 15:42
PROVIDERS: PCP Family Medicine; Visit Provider Family Medicine
DX: R42 Dizziness and giddiness (principal); E83.40 Disorders of magnesium metabolism, unspecified
CPT/HCPCS: 36415; 83735; 85025

== ENCOUNTER 2025-09-07 16:43 | Emergency (ER) | payer MEDICARE, SELFPAY ==
[2022-12-19 10:30] VITALS: BMI 23.4
[2025-09-07 16:46] VITALS: BP 149/82; PULSE 74; RESP 17; TEMP 36.6; O2SAT 99
[2025-09-07 17:12] VITALS: BMI 23.9
[2025-09-07 17:43] VITALS: BP 151/83; PULSE 79; RESP 17; O2SAT 98
[2025-09-07 17:59] LABS: Hematocrit 37.9 % (37-47); Hemoglobin 12.7 g/dL (12.0-15.0); Immature Granulocytes Count 0.040 X10^3/uL (0.0-0.0); Mean Corp Hgb Conc 33.5 g/dL (32-36); Mean Corpuscular Volume 92.7 fL (81-99); Mean Platelet Vol. 8.9 fl (6.2-12.0); NRBC Flagged by Analyzer 0 % (0-5); Platelet Count 272 K/mm3 (150-450); RBC Distribution Width CV 13.5 % (11.6-14.6); RBC Distribution Width SD 45.9 fl (35.1-43.9); Red Blood Count 4.09 M/mm3 (4.2-5.4); White Blood Count 7.3 K/mm3 (4.4-11.0)
--- NOTE | 2025-09-07 18:00 | CT_ITS ---
PROCEDURE: BRAIN/HEAD WITHOUT CONTRAST 09/07/2025 REASON FOR EXAM: HEADACHE, SHUFFLED GAIT, INCONTINENCE TECHNIQUE: Procedure Code: CTBR Modality: CT Procedure: BRAIN/HEAD WITHOUT CONTRAST Coronal and Sagittal reconstruction series were provided. One or more dose reduction techniques were used (e.g., Automated exposure control, adjustment of the mA and/or kV according to patient size, use of iterative reconstruction technique. FINDINGS: Bilateral intermediate density subdural hemorrhages which are relatively balanced. Thickness on the right at least 18 mm. Thickness on the left also 18 mm. Septum midline. No parenchymal hematoma. No skull fracture. CT/Brain/Head without Contrast IMPRESSION: Bilateral intermediate density subdural hemorrhages. No downward herniation at this time. A reading will be immediately called Reading Location[facility]
--- NOTE | 2025-09-07 18:12 | EX.ED.DYSGE1 ---
HPI History of Present Illness Chief Complaint: Weakness Detail of Chief Complaint: Unable to walk since last evening, headache, slight confusion Informant: patient and family Onset/Context/Timing Onset: Yesterday Context: Sudden Onset Timing: Continuous Quality: Acute neurologic symptoms Location: Neurologic Current Severity: Moderate Maximum Severity: Moderate Worsened by: Nothing Relieved by: Nothing Associated Symptoms Associated Symptoms: Difficulty ambulating, decreased level of consciousness and headache Narrative Narrative: Patient is a 84-year-old woman. She was seen August 01 after head trauma. CAT scan was negative. She was seen September 02 and had x-rays of her LS spine and sacrum. She had an S5 compression fracture. CT of the head was not obtained since she denied headache, head trauma and is only on a baby aspirin. She presents because of difficulty ambulating since yesterday. She complains of headache that is essentially global. She denies double vision, blurred vision loss of vision or double vision. She denies ringing or ears or decreased hearing. No trouble with speech or swallowing. She denies cardiac respiratory symptoms. She denies abdominal pain, nausea, vomiting or diarrhea. She denies any urologic symptoms. She denies flank pain. Patient is unable to ambulate without assistance. Prior similar symptoms: No Recent Illness/Hospitalization: Yes [facility] Medical History Abnormal bruising Myocardial infarct Essential hypertension Unstable angina Sensorineural hearing loss Dehydration Hypokalemia HLD (hyperlipidemia) Vertigo Intractable nausea and vomiting Home Medications ?Medication ?Instructions ?Recorded ?Last Taken ?Type aspirin 81 mg chewable tablet 81 mg PO QHS heart health 02/15/14 08/01/25 History glucosamine sulfate 2KCl 500 mg 1,000 mg PO BID supplement 02/15/14 08/01/25 History capsule (Glucosamine Relief) multivitamin with folic acid 400 1 tab PO DAILY supplement 02/15/14 08/01/25 History mcg tablet (Thera) losartan 100 mg tablet 100 mg PO QHS Pt going out of 12/05/23 08/01/25 Rx state for 3 months #90 tabs calcium carbonate (Calcium 600) 600 mg PO DAILY 06/19/24 08/01/25 History cholecalciferol (vitamin D3) 25 25 mcg PO DAILY 06/19/24 08/01/25 History mcg (1,000 unit) tablet collagen 1,000 mg PO BID 06/19/24 08/01/25 History vitamin E 670 mg (1,000 unit) 670 mg PO DAILY 06/19/24 08/01/25 History capsule coffee extract 100 mg-phosphatidyl cap PO 03/27/25 08/01/25 History serine 100 mg capsule (Neuriva Original) hydrochlorothiazide 12.5 mg tablet 12.5 mg PO DAILY #90 tabs 03/27/25 08/01/25 Rx phytosterol 300 mg-pantethine 100 1 cap PO BID 03/27/25 Unknown History mg capsule (CholestOff Complete) metoprolol succinate 25 mg 25 mg PO QHS #90 tabs 04/04/25 08/01/25 Rx tablet,extended release 24 hr amlodipine 2.5 mg tablet 5 mg PO DAILY blood pressure 08/01/25 08/01/25 History nitroglycerin 0.4 mg sublingual 0.4 mg sublingual Q5M PRN Chest 08/26/25 Unknown Rx tablet pain #30 tabs Allergy/AdvReac Type Severity Reaction Status Date / Time [id number]-SZL-DtO Reductase Allergy Severe Pain in Verified 09/07/25 16:54 Inhibitor joints Penicillins Allergy Unknown Verified 09/07/25 16:54 metoprolol AdvReac Intermediate Other Verified 09/07/25 16:54 Family History Sister Pacemaker Father CVA (cerebral vascular accident) Surgical History History of cholecystectomy History of coronary artery stent placement (12/09/22) H/O: hysterectomy Social History Smoking Status: Never smoker alcohol intake: never substance use type: does not use caffeine: No ROS ROS ED Constitutional Constitutional ED: Denies chills, fever(s), subjective, sweats or weight loss Eyes Eyes: Denies blurry vision or change in vision ENT ENT ED: Denies ear pain Cardiovascular Cardiovascular: Denies chest pain or palpitations Respiratory/Chest Respiratory/Chest: Denies cough, dyspnea or dyspnea on exertion Gastrointestinal Gastrointestinal: Denies abdominal pain or constipation Genitourinary Genitourinary ED: Denies dysuria, hematuria or urinary frequency Musculoskeletal Musculoskeletal: Reports back pain; Denies arthralgias or neck pain Integumentary Denies rash Neurologic Neurologic: Reports headache(s) and other Details: Difficulty ambulating since yesterday. ; Denies paresthesias or weakness Psychiatric Psychiatric: Reports depression Hematologic/Lymphatic Hematologic/Lymphatic: Reports systems reviewed and no addt'l complaints, except as documented EXAM Physical Exam Const Vital Signs: 09/07/25 16:46 09/07/25 17:12 09/07/25 17:43 Temperature 97.8 F Temperature Source Temporal Pulse Rate 74 79 Respiratory Rate 17 17 Respiratory Effort Normal Non-Labored Blood Pressure 149/82 H 151/83 H Blood Pressure Mean 104 105 Pulse Ox 99 98 Oxygen Delivery Method Room Air Positive well nourished and well developed General Appearance ED: well developed, NAD and pallor; Negative for cyanotic or diaphoretic HEENT Reports moist mucous membranes HEENT Narrative: There is no evidence of head trauma. There is no chronic signs of basilar skull fracture. There is no septal deviation hematoma. There is no dental trauma. There is no trismus. There is no jaw pain. Eyes PERRL and EOMs intact bilaterally Neck no lymphadenopathy, supple and no JVD Neck Narrative: There is no midline posterior neck pain. Resp normal respiratory effort and clear to auscultation bilaterally Cardio regular rate, regular rhythm, S1 normal heart sound, S2 normal heart sound and no murmurs GI normal to inspection, nondistended, normoactive bowel sounds, non-tender, non-distended and no masses; Negative for hepatosplenomegaly Back/Spine no CVA tenderness Extremity normal to inspection Neuro oriented x3, CN's II-XII intact bilaterally and no sensory deficits noted Neuro Narrative: Patient is awake but not alert. Gait is abnormal. She shuffles and moving her feet only 1 to 2 inches. She needs assistance otherwise she will fall. This is new since last evening per patient and daughters. Patient had negative Babinski sign bilaterally. She had negative clonus at the ankles bilaterally. Romberg test with eyes open normal. Romberg test with eyes closed abnormal on the right. Proprioception is abnormal bilaterally. Motor Exam: strength 5/5 throughout Psych Mood & Affect: depressed Skin no rashes or lesions noted, no wounds and skin turgor normal General Skin Exam: pallor; Negative for jaundice MDM MDM MDM Narrative Medical decision making narrative: With history of fall acute neurologic complaint and headache will obtain CT of the head since 1 was not obtained on July 03. Concerned that this represents a traumatic intracranial bleed. Will obtain CBC to assess H&H and platelet count. Competence of metabolic panel to assess electrolytes, renal function. Coags were ordered. Patient was made NPO. She has not had any and eat since 1230. She had some water approximately 3 to 4 hours ago. Lab Data Attestation: I reviewed the patient's lab results. Lab results narrative: H&H is unremarkable. Competence of metabolic panel is unremarkable with slight elevation in glucose. Labs: Laboratory Results - last 24 hr 09/07/25 17:50 WBC 7.3 RBC 4.09 L Hgb 12.7 Hct 37.9 MCV 92.7 MCH 31.1 MCHC 33.5 RDW Std Deviation 45.9 H RDW Coeff of Lyla 13.5 Plt Count 272 MPV 8.9 Immature Gran % (Auto) 0.500 Neut % (Auto) 64.8 Lymph % (Auto) 23.5 [place] % (Auto) 9.0 Eos % (Auto) 1.4 Baso % (Auto) 0.8 Absolute Neuts (auto) 4.7 Absolute Lymphs (auto) 1.72 Nucleated RBC % 0 Sodium 137 Potassium 3.7 Chloride 100 Carbon Dioxide 23.0 Anion Gap 14 BUN 25 H Creatinine 0.90 Estim Creat Clear Calc 34.62 L Est GFR (MDRD) Non-Af 64 BUN/Creatinine Ratio 28.3 H Glucose 105 H Calcium 9.7 Total Bilirubin 0.46 AST 34 H ALT 20 Alkaline Phosphatase 84 Total Protein 7.6 Albumin 4.6 Globulin 3.0 Albumin/Globulin Ratio 1.5 Radiography Diagnostic Testing: Clinical Impression(s) from Imaging Studies Brain CT 09/07/25 18:00 IMPRESSION: Bilateral intermediate density subdural hemorrhages. No downward herniation at this time. A reading will be immediately called Reading [facility] CT of the head reveals subacute with acute subdural on the right. Is significant bilateral subdural with no midline shift. There are some compression of the ventricles on the right side more so than left. In light of this spoke with family. wishes for her to be transferred to [facility] Since he has been cared for at [facility] In the past. Spoke with the nurse at the transfer line. She was made aware this is a traumatic subdural and this is related to a fall that probably occurred 5 days ago. She was told no imaging was taken at that time. There was imaging of the back which revealed compression fracture S5. Management Discussion w/another healthcare provider: Radiologist (Radiologist called me at 1821 to inform me of the CT results.) Critical Care Time Critical Care Time: Yes Critical care time (excluding procedures): 30-74 minutes (36), Including time spent: (History, physical, review of prior records, independent or potation of CAT scan, discussion with radiologist.), Discussing w/Patient &/or Family/Traffic Signal Technician (Discussion with daughter and regarding need for transfer and where they like her to go.), Discussing w/Consultants (ED to ED transfer trauma), Arranging Admission or Transfer and Performing Direct Patient Care at Bedside Discharge Plan Triage Chief Complaint: Weakness ED Provider: Juan José Barahona Dx/Rx/DC Orders Clinical Impression: Traumatic intracranial subdural hematoma, Inability to walk, Cephalalgia, Antiplatelet or antithrombotic long-term use, Essential hypertension, History of coronary artery stent placement, Closed compression fracture of sacrum Prescriptions: No Action calcium carbonate [Calcium 600] 600 mg calcium (1,500 mg) tablet 600 mg PO DAILY collagen 1,000 mg PO BID cholecalciferol (vitamin D3) 25 mcg (1,000 unit) tablet 25 mcg PO DAILY vitamin E 670 mg (1,000 unit) capsule 670 mg PO DAILY nitroglycerin 0.4 mg tablet, sublingual 0.4 mg sublingual Q5M PRN (Reason: Chest pain) Qty: 30 1RF Neuriva Original 100-100 mg capsule PO CholestOff Complete 300-100 mg capsule 1 cap PO BID aspirin 81 MG tablet,chewable 81 mg PO QHS Patient Comments: HEART/BLOOD THINNER Glucosamine Relief 500 MG capsule 1,000 mg PO BID Patient Comments: VITAMIN/HERB multivitamin with folic acid [Thera] 1 TABLET tablet 1 tab PO DAILY Patient Comments: VITAMIN amlodipine 2.5 mg tablet 5 mg PO DAILY losartan 100 mg tablet 100 mg PO QHS Qty: 90 3RF hydrochlorothiazide 12.5 mg tablet 12.5 mg PO DAILY Qty: 90 3RF metoprolol succinate 25 mg tablet extended release 24 hr 25 mg PO QHS Qty: 90 3RF Primary Care Provider: Joe Merino Referrals: Joe Merino MD [Primary Care Provider, Family Practice] Print Language: Korean Disposition Disposition: Acute Care Hospital Discharge Location: [facility]
[2025-09-07 18:19] LABS: AST(SGOT) 34 U/L (<=31); Alanine Aminotransfer ALT/SGPT 20 U/L (<=34); Albumin, Serum 4.6 g/dL (3.4-4.8); Alkaline Phosphatase 84 U/L (35-104); Anion Gap 14 (5-15); BUN 25 mg/dL (4-19); BUN/Creat Ratio 28.3 RATIO (10-20); Calcium,Total 9.7 mg/dL (7.6-11.0); Carbon Dioxide 23.0 mmol/L (21.0-32.0); Chloride 100 mmol/L (98-108); Estimated Creatinine Clearance 34.62 ml/min (50-250); Globulin 3.0 g/dL (2.2-4.2); Glucose 105 mg/dL (70-99); Potassium 3.7 mmol/L (3.3-5.1)
[2025-09-07 18:20] LABS: Prothrombin Time (Protime)PT. 12.8 SECONDS (11.7-14.9)
[2025-09-07 18:21] LABS: Partial Thromboplast Time 25.0 Seconds (24.1-36.2)
--- NOTE | 2025-09-07 18:29 | EKG12_ITS ---
Test Reason : HTN Blood Pressure : */* mmHG Vent. Rate : 88 BPM Atrial Rate : 88 BPM P-R Int : 120 ms QRS Dur : 108 ms QT Int : 390 ms P-R-T Axes : 74 -68 67 degrees QTcB Int : 471 ms Sinus rhythm with occasional Premature ventricular complexes Left anterior fascicular block Minimal voltage criteria for LVH, may be normal variant ( Yasmani product ) Abnormal ECG Confirmed by LUZ DRIVER, AUSTIN ([id number]), assistant editor GAVINO MENARD ([id number]) on 09/09/2025 7:47:32 AM Referred By: Confirmed By: AUSTIN ESCOBAR MD
[2025-09-07 18:47] VITALS: BP 150/90; PULSE 93; RESP 17; TEMP 36.9; O2SAT 99
[2025-09-07 19:48] VITALS: BP 137/72; PULSE 87; RESP 18; TEMP 36.7; O2SAT 96
== END 2025-09-07 20:13 | disposition short-term general hospital (02) ==
PROVIDERS: Emergency Provider Emergency Medicine; PCP Family Medicine; Visit Provider Emergency Medicine
DX: S06.5XAA Traumatic subdural hemorrhage with loss of consciousness status unknown, initial encounter (principal); R53.1 Weakness; M54.9 Dorsalgia, unspecified; I10 Essential (primary) hypertension; Z90.710 Acquired absence of both cervix and uterus; E78.5 Hyperlipidemia, unspecified; I44.5 Left posterior fascicular block; I25.2 Old myocardial infarction; Z90.49 Acquired absence of other specified parts of digestive tract; Z95.5 Presence of coronary angioplasty implant and graft; R51.9 Headache, unspecified; S32.10XD Unspecified fracture of sacrum, subsequent encounter for fracture with routine healing
CPT/HCPCS: 70450; 80053; 85025; 85610; 85730; 93005; 99285; A4216

== ENCOUNTER 2025-09-14 15:50 | Inpatient (IN) | payer MEDICARE, SELFPAY ==
[2022-12-19 10:30] VITALS: BMI 23.4
--- OUTSIDE RECORDS SUMMARY | 2025-09-14 16:00 | XMS RPT_ITS | CCD ---
Author Organization [facility] Care Team Providers Care Supervisory Lifeguard Name Role Phone Dr. Kyara Odonnell Primary Care Provider Dr. Tin Walters Emergency Provider Dr. Susanna Cabrera Admit Provider Dr. Susanna Cabrera Other Provider Dr. Raya Boo Other Provider Dr. Mukund Dalton Other Provider Dr. Mustapha Clement Attending Provider Dr. Mukund Dalton Attending Provider Dr. Kyara Odonnell Referring Provider Dr. Kyara Odonnell S Primary Care Provider Dr. Collin Eddy Attending [...] Attending Provider Dr. Kyara Odonnell Referring Provider Maxine GODFREY, PA Debra Balbuena Attending Provider Dr. Kyara Odonnell Primary Care Provider Dr. Kyara Odonnell Referring Provider Dr. Kyara Odonnell Primary Care Provider Dr. Kyara Odonnell Referring Provider Maxine GODFREY PA Debra Balbuena Attending Provider Dr. Kyara Odonnell MD Primary Care Provider Dr. Kyara Odonnell MD Referring Provider Debra Esparza Attending Provider Joe Carey MD Primary Care Provider Joe Carey MD Attending Provider Joe Carey MD Referring Provider Debra Esparza Referring Provider Debra Esparza Attending Provider Stevan DPM, Dr. Willis Attending Provider Stevan DPSree, Dr. Willis Referring Provider Stevan BONILLA, Dr. Willis Other Provider Dr. Abigail Guerrero MD Attending Provider Bobby WOLFE-CYin Attending Provider Bobby PHYSICIAN RELATIONS REPRESENTATIVE-CYin Referring Provider Joe Carey MD Primary Care Provider Joe Carey MD Referring Provider Joe Carey MD Attending Provider Chano DRIVER, Dr. Thrasher Attending Provider Chano DRIVER, Dr. Thrasher Referring Provider Cherry DRIVER, Joe Primary Care Provider Cherry DRIVER, Joe Referring Provider Yaquelin HOLCOMB, Dr. Lantigua Emergency Provider Cherry DRIVER, Joe Primary Care Physician Stevan DPM, Dr. Willis Attending Physician Stevan DPM, Dr. Willis Nurse Practitioner Yolanda DRIVER, Dr. Hayes Attending Physician Bobby PHYSICIAN RELATIONS REPRESENTATIVE-C, Yin Attending Physician Cherry DRIVER, Joe Attending Physician Chano DRIVER, Dr. Thrasher Attending Physician Dr. Grzegorz Jamison DO Attending Physician Dr. Grzegorz Jamison DO Emergency Department Physic yvette Belle DRIVER, Dr. Kyara Werner Referring Provider Debra Esparza Attending Physician Debra Esparza Referring Provider Dr. Virgil Bazzi DO Emergency Department Physic yvette Cherry, Chalon Primary Care Unavailable Cherry, Chalon Referring Unavailable Cherry, Chalon Attending Unavailable Cherry, Chalon Primary Care Unavailable Cherry, Chalon Attending Unavailable Cherry, Chalon Primary Care Unavailable Madden, Price Referring Unavailable Madden, Price Attending Unavailable Cherry, Chalon Primary Care Unavailable Abigail Guerrero Attending Unavailable Lazaro Calles Referring Unavailable Lazaro Calles Consulting Unavailable Cherry, Chalon Primary Care Unavailable Debra Goodman Attending Unavailabl e Jolliff, Kyara S Referring Unavailable Debra Goodman Attending Unavailabl e Jolliff, Kyara S Referring Unavailable Jolliff, Kyara S Primary Care Unavailable Cherry, Chalon Primary Care Unavailable Cherry, Chalon Referring Unavailable Goodman, Debra M Attending Unavailabl e Cherry, Chalon Primary Care Unavailable Debra Goodman Referring Unavailabl e Debra Goodman Attending Unavailabl e Cherry, Chalon Primary Care Unavailable Cherry, Chalon Referring Unavailable Cherry, Chalon Attending Unavailable Cherry, Chalon Primary Care Unavailable Lazaro Calles Referring Unavailable Lazaro Calles Attending Unavailable Cherry, Chalon Primary Care Unavailable Grzegorz Jamison Attending Unavailable Cherry, Chalon Primary Care Unavailable Virgil Bazzi Attending Unavailable BarahonaJuan José Attending Unavailable Cherry, Chalon Primary Care Unavailable Cherry, Chalon Primary Care Unavailable Shankel PHYSICIAN RELATIONS REPRESENTATIVE, Yin Referring Unavailable Shankel PHYSICIAN RELATIONS REPRESENTATIVE, Yin Attending Unavailable Cherry, Chalon Primary Care Unavailable Debra Goodman Attending Unavailabl e Debra Goodman Referring Unavailabl e Cherry, Chalon Primary Care Unavailable Cherry, Chalon Referring Unavailable Cherry, Chalon Attending Unavailable CHERRY, CHALON Primary Care Unavailable NICK TAO Admitting Unavailabl e BETTYE KNOWLES Consulting Unavailabl e CURRENTTYLOR Attending Unavailable Allergies Allergy Classification Reported Allergen(s) Allergy Type Date of Onset Reaction(s) Facility (20 sources) Penicillins Allergy to substance 1 Unknown [facility] (20 sources) Zhsmgeo-Yxb-Ius Reductase Inhibitor Allergy to substance 3 Pain in joints [facility] Comment on above: pt gets generalized severe pain (8 sources) Metoprolol; Translations: [METOPROLOL] Drug Allergy 5 Other [facility] Comment on above: dizziness (1 source) Metoprolol Drug Allergy 5 [facility] (1 source) Penicillins Drug allergy (disorder) 5 [facility] (1 source) Vufpzbb-Ucf-Ivu Reductase Inhibitor Drug allergy (disorder) 5 [facility] (1 source) Hmg-Coa Reductase Inhibitors (Statins); Translations: [EXLQZRL-FFL-FD A REDUCTASE INHIBITORS] Propensity to adverse reactions to drug (disorder) 5 [facility] Repository (1 source) penicillAMINE; Translations: [PENICILLAMINE] Drug Allergy [facility] Medications Current Medications Medication Drug Class(es) Dates Sig (Normalized) Sig (Original) amLODIPine 2.5 mg oral tablet (20 sources) Dihydropyridine Calcium Channel Shereen Start: 08-01-2025 take 2 tablets by mouth once daily Start: 06-19-2024 End: 08-01-2025 take 1 tablet by mouth once daily Amlodipine 2.5 mg tablet Discontinued 2.5 mg PO DAILY 90 June 30, 2025 12:32pm August 01, 2025 9:51am blood pressure Start: 01-12-2023 End: 06-19-2024 take 1 tablet by mouth once daily Amlodipine 5 mg tablet Discontinued 5 mg PO DAILY 90 November 30, 2023 12:54pm June 19, 2024 2:49pm blood pressure Start: 12-08-2022 End: 01-12-2023 take 2 tablets by mouth once daily Amlodipine 5 mg tablet Discontinued 10 mg PO DAILY 90 December 19, 2022 11:26am January 12, 2023 3:21pm blood pressure Start: 12-08-2022 End: 01-12-2023 take 10 mg by mouth once daily Amlodipine Discontinued 10 MG PO DAILY 90 December 19, 2022 11:26am January 12, 2023 3:21pm Start: 12-08-2022 End: 12-08-2022 take 1 tablet by mouth once daily Amlodipine 5 mg tablet Discontinued 5 mg PO DAILY 30 December 08, 2022 1:00am December 08, 2022 8:03pm aspirin 81 mg chewable tablet (20 sources) Platelet Aggregation Inhibitor, Nonsteroidal Anti-inflammatory Drug Start: 02-15-2014 take 1 tablet by mouth at bedtime biotin 5 mg disintegrating oral tablet (1 source) Start: 12-08-2022 take 93782 ug by mouth once daily Biotin Active 78986 MCG PO DAILY December 08, 2022 12:00am calcium carbonate 1500 mg oral tablet (8 sources) Start: 06-19-2024 take 1 tablet by mouth once daily cholecalciferol 0.025 mg oral tablet (8 sources) Vitamin D Start: 06-19-2024 take 1 tablet by mouth once daily Coffee Xt-Phosphatidyl Serine (Neuriva Original) 100-100 mg capsule (7 sources) Start: 03-27-2025 Start: 03-27-2025 Coffee Xt-Phos phatidyl Serine (Neuriva Original) 100-100 mg capsule Active NMA PO March 27, 2025 12:00am Collagen (8 sources) Start: 06-19-2024 take 1000 mg by mouth twice da amrita Start: 06-19-2024 take 1000 mg by mout h twice daily collagen Active 1000 mg PO TWICE A DAY June 19, 2024 12:00am Stephanie Jgfa-Ajgbaoyv-Ezbatjkft Ac ([place] Oil) 1,000 MG capsule (2 sources) Start: 02-15-2014 take 1 capsule by mouth twice daily before mealtime Stephanie Sdcl-Neyefnfv-Cnnqebish Ac ([place] Oil) 1,000 MG capsule Active 1000 MG PO TWICE A DAY February 14, 2014 11:00pm Start: 02-15-2014 take 1 capsule by mo uth twice daily before mealtime Stephanie Lewn-Rbgfmdmg-Xefsdpipq Ac ([place] Oil) 1,000 MG capsule Active 1000 MG PO TWICE A DAY February 15, 2014 12:00am 1 ml evolocumab 140 mg/ml prefilled syringe (2 sources) PCSK9 Inhibitor Start: 08-27-2025 Flaxseed Oil-[place] 3,6,9 (2 sources) Start: 02-15-2014 Flaxseed Oil-O jesus 3,6,9 Active 1 EACH PO TWICE A DAY February 14, 2014 11:00pm Start: 02-15-2014 Flaxseed Oil-O jesus 3,6,9 Active 1 EACH PO TWICE A DAY February 15, 2014 12:00am glucosamine sulfate 500 mg oral capsule (20 sources) Start: 02-15-2014 LORazepam 0.5 mg oral tablet (1 source) Benzodiazepine Start: 11-30-2017 take 0.5 mg by mouth three times daily as needed Lorazepam Active 0.5 MG PO 3 TIMES DAILY NEEDED November 30, 2017 1:00am 24 hr metoprolol succinate 25 mg extended release oral tablet (20 sources) beta-Adrenergic Shereen Start: 04-04-2025 take 1 tablet by mouth every twenty-four hours at bedtime Start: 12-10-2022 End: 02-28-2023 take 1 tablet by mouth once daily Metoprolol Succinate (Toprol Xl) 25 mg tablet extended release 24 hr Discontinued 25 mg PO DAILY 3 December 19, 2022 11:27am February 28, 2023 1:28pm On Hold: dizziness Multivitamin With Folic Acid (Thera) 1 TABLET tablet (20 sources) Start: 02-15-2014 take 1 tablet by lio th once daily Start: 02-15-2014 take 1 tablet by lio [...] tablet (20 sources) Nitrate Vasodilator Start: 12-10-2022 End: 08-26-2025 Start: 12-10-2022 Nitroglycerin Active 0.4 MG SL [...] take 1 capsule by mouth once daily Start: 02-15-2014 End: 06-19-2024 Vitamin E (Dl, Acetate) 400 UNITS capsule Discontinued 400 U PO TWICE A DAY February 15, 2014 12:00am June 19, 2024 2:25pm supplement Completed/Discontinued Medications Medication Drug Class(es) Dates Sig (Normalized) Sig (Original) 1 ml alirocumab 75 mg/ml auto-injector (20 sources) PCSK9 Inhibitor Start: 08-26-2025 End: 08-27-2025 Alirocumab (Praluent Pen) 75 mg/mL pen injector Discontinued 75 mg SC every 2 weeks 4 August 26, 2025 12:00am August 27, 2025 1:37pm Start: 03-07-2023 End: 06-19-2024 Alirocumab (Praluent Pen) 15 0 mg/mL pen injector Discontinued 150 mg SC [...] 3 months dexamethasone 6 mg oral tablet (8 sources) Corticosteroid Start: 09-06-2024 End: 12-18-2024 take 1 tablet by mouth once daily Dexamethasone 6 mg tablet Discontinued 6 mg PO DAILY 5 September 06, 2024 12:00am December 18, 2024 2:56pm [place] 2-Egq-Qjw-Fish Oil (8 sources) Start: 06-19-2024 End: 03-27-2025 [place] 5-Bey-Kko-Fish Oil (Fish Oil) 300-1,000 mg capsule Discontinued 1 NMA PO DAILY June 19, 2024 12:00am March 27, 2025 9:30am Start: 06-19-2024 [place] 3-Dha-Ep a-Fish Oil (Fish Oil) 300-1,000 mg capsule Active 1 NMA PO DAILY June 19, 2024 12:00am ezetimibe 10 mg oral tablet (20 sources) Dietary Cholesterol Absorption Inhibitor Start: 02-28-2023 End: 06-19-2024 take 1 tablet by mouth once daily Ezetimibe (Zetia) 10 mg tablet Discontinued 10 mg PO DAILY 30 February 28, 2023 12:00am June 19, 2024 2:26pm folate (8 sources) Start: 06-19-2024 End: 03-27-2025 take 1000 [...] blet Discontinued 12.5 mg PO DAILY 30 December 03, 2017 1:00am January 12, 2023 [...] 1:00am December 08, 2022 11:10am blood pressure meclizine hydrochloride 25 mg oral tablet (3 sources) Antiemetic Start: 08-01-2025 End: 08-26-2025 take 1 tablet by mouth twice daily as needed for dizziness Meclizine 25 mg tablet Discontinued 25 mg PO TWICE A DAY as needed for dizziness 20 0 August 01, 2025 12:00am August 26, 2025 11:39am MODUCHOL (20 sources) Start: 06-19-2024 End: 12-18-2024 [...] A DAY December 15, 2022 12:00am Phytosterol-Pantethine (Chol estoff Complete) 300-100 mg capsule (7 sources) Start: 03-27-2025 take 1 capsule by mo [facility] twice daily Start: 03-27-2025 take 1 capsule by mo [facility] twice daily Phytosterol-Pantethine (Cholestoff Complete) 300-100 mg [...] mg / trimethoprim 160 mg oral tablet (8 sources) Dihydrofolate Reductase Inhibitor Antibacterial, Sulfonamide Antimicrobial Start: 08-01-2024 End: 08-08-2024 Sulfamethoxazole-Tr imethoprim (Bactrim Ds) 800-160 mg tablet Discontinued 1 [...] beat; Translations: [Cardiac arrhythmia, unspecified] 01-12-2023 Chronic Coagulation and hemorrhagic disorders (20 sources) Finding related to bruising; Translations: [Spontaneous ecchymoses] 12-19-2022 Episodic Conditions associated with dizziness or vertigo (20 sources) Vertigo; Translations: [Dizziness and giddiness] 11-30-2017 Episodic Comment on above: has had this in the past and it ios recurrent Coronary atherosclerosis and other heart disease (20 sources) Preinfarction syndrome; Translations: [Unstable angina] Onset: 08-26-2025 Chronic Comment on above: Osiro 2.5 X 9 FARRUKH to first OM ostial, and Osiro 4.0 X 9 FARRUKH to CX 11/2022 Coronary atherosclerosis and other heart disease (1 source) Presence of coronary angioplasty implant and graft; Translations: [Presence of coronary angioplasty implant and graft] Onset: 08-26-2025 Episodic Disorders of lipid metabolism (20 sources) Hyperlipidemia; Translations: [Hyperlipidemia, unspecified] Onset: 08-26-2025 Chronic Comment on above: intolerant of statin s Essential hypertension (20 sources) Hypertensive disorder; Translations: [Essential (primary) hypertension] Onset: 09-06-2025 Chronic Fluid and electrolyte disorders (20 sources) Dehydration; Translations: [Dehydration] 12-01-2017 Episodic Headache; including migraine (1 source) Acute post-traumatic headache, not intractable; Translations: [Acute post-traumatic headache, not intractable] Onset: 09-07-2025 Episodic Malaise and fatigue (20 sources) Fatigue; Translations: [Other fatigue] Onset: 09-11-2025 03-13-2023 Episodic Nausea and vomiting (20 sources) Intractable nausea and vomiting; Translations: [Nausea with vomiting, unspecified] 11-30-2017 Episodic Nonspecific chest pain (20 sources) Chest pain; Translations: [Chest pain, unspecified] Episodic Other bone disease and musculoskeletal deformities (1 source) Other specified disorders of bone density and structure, unspecified site; Translations: [Other specified disorders of bone density and structure, unspecified site] Onset: 09-07-2025 Episodic Other fractures (1 source) Closed fracture of vertebral column; Translations: [Closed fracture of unspecified vertebral column without mention of spinal cord injury] 09-02-2025 Episodic Other fractures (1 source) Unspecified fracture of sacrum, subsequent encounter for fracture with routine healing; Translations: [Closed compression fracture of sacrum with routine healing, subsequent encounter] Onset: 09-07-2025 Episodic Other injuries and conditions due to external causes (3 sources) Closed injury of head; Translations: [Unspecified injury of head, initial encounter] 08-01-2025 Episodic Other injuries and conditions due to external causes (1 source) Unspecified injury of head, initial encounter; Translations: [Unspecified injury of head, initial encounter] Onset: 08-06-2025 Episodic Other nervous system disorders (1 source) Other hereditary and idiopathic neuropathies; Translations: [Other hereditary and idiopathic neuropathies] Onset: 06-10-2025 Chronic Other nervous system disorders (1 source) Polyneuropathy, unspecified; Translations: [Polyneuropathy, unspecified] Onset: 06-10-2025 Chronic Other nervous system disorders (1 source) Unsteadiness on feet; Translations: [Unsteady gait when walking] Onset: 09-07-2025 Episodic Other screening for suspected conditions (not mental disorders or infectious disease) (1 source) Encounter for screening mammogram for malignant neoplasm of breast; Translations: [Encounter for screening mammogram for malignant neoplasm of breast] Onset: 07-12-2025 Episodic Other skin disorders (8 sources) Ingrowing great toenail; Translations: [Ingrowing nail] 08-01-2024 Episodic Residual codes; unclassified (3 sources) H/O: vertigo; Translations: [Personal history of other specified conditions] 08-01-2025 Episodic Residual codes; unclassified (1 source) Asymptomatic menopausal state; Translations: [Asymptomatic menopausal state] Onset: 09-07-2025 Episodic Sprains and strains (20 sources) Strain of muscle at thorax level; Translations: [Strain of muscle and tendon of unspecified wall of thorax, initial encounter] 03-21-2023 Episodic Superficial injury; contusion (20 sources) Corneal abrasion; Translations: [Injury of conjunctiva and corneal abrasion without foreign body, unspecified eye, initial encounter] 11-30-2017 Episodic Unclassified (1 source) S5 vertebral fracture Unclassified (1 source) Low back pain, unspecified; Translations: [Low back pain, unspecified] Onset: 09-10-2025 Unclassified (1 source) Other specified cough; Translations: [Other specified cough] Onset: 03-03-2025 Unclassified (1 source) Bilateral subdural hematomas (HCC); Translations: [Bilateral subdural hematomas (HCC)] Onset: 09-07-2025 Viral infection (8 sources) Disease caused by 2019-nCoV; Translations: [COVID-19] 09-06-2024 Episodic Past or Other Problems Problem Classification Problem Date Documented Da te Episodic/Chronic Cardiac dysrhythmias (20 sources) Palpitations; Translations: [Palpitations] Onset: 03-27-2025 04-10-2023 Episodic Other nervous system disorders (1 source) Anesthesia of skin; Translations: [Anesthesia of skin] Onset: 06-04-2025 Episodic Results Test Name Value Interpretation Reference Range Facility Basic metabolic 2000 panelon 09-12-2025 Anion gap [Moles/Vol] 11 mmol/L Normal 8-15 [facility] Comment on above: Order Comment: Speci men Type: BLOOD SPECIMENOrdering Facility: [facility] Address: [address] [place] [address] Performed By: #### 2 4320-2, 2776-11 ####[facility]ATORYCLIA [id number] [place] [address] [place] Calcium [Mass/Vol] 8.9 mg/dL Normal 8.5-10.2 [facility] Comment on above: Order Comment: Speci men Type: BLOOD SPECIMENOrdering Facility: [facility] Address: [address] [place] [address] Performed By: #### 2 2, 2776-11 ####[facility] LABORATORYCLIA [id number] [place] [address] [place] Chloride [Moles/Vol] 106 mmol/L Normal 98-107 [facility] Comment on above: Order Comment: Speci men Type: BLOOD SPECIMENOrdering Facility: [facility] Address: [address] [place] [address] Performed By: #### 2 4320-12, 2776-11 ####[facility]ORYCLIA [id number] [place] [address] [place] CO2 [Moles/Vol] 24 mmol/L Normal 22-30 [facility] Comment on above: Order Comment: Speci men Type: BLOOD SPECIMENOrdering Facility: [facility] Address: [address] [place] [address] Performed By: #### 2 4320-2, 2776-11 ####[facility]ATORYCLIA [id number] [place] [address] [place] Creatinine [Mass/Vol] 0.74 mg/dL Normal 0.58-0.96 [facility] Comment on above: Order Comment: Speci men Type: BLOOD SPECIMENOrdering Facility: [facility] Address: [address] [place] [address] Performed By: #### 2 4320-2, 2776-11 ####[facility]ORATORYCLIA [id number] [place] [address] [place] eGFRcr SerPlBld CKD-EPI 2020 81 mL/min/1.73m??? Normal >=60 [facility] Comment on above: Order Comment: Obie barger Type: BLOOD SPECIMENOrdering Facility: [facility] Address: [address] [place] [address] Result Comment: Isabelle mated Glomerular Filtration Rate (eGFR) is calculated using the 2020 CKD-EPI creatinine equation. This equation utilizes serum creatinine, sex, and age as parameters. The creatinine assay has traceable calibration to isotope dilution-mass spectrometry. Refer to KDIGO guidelines for clinical interpretation. In patients with unstable renal function, e.g. those with acute kidney injury, the eGFR may not accurately reflect actual GFR. Performed By: #### 2 4321-2, 2777-1 ####[facility] LABORATORYCLIA [id number] [place] [address] [place] Glucose [Mass/Vol] 96 mg/dL Normal 74-99 [facility] Comment on above: Order Comment: Obie barger Type: BLOOD SPECIMENOrdering Facility: [facility] Address: [address] [place] [address] Result Comment: The [place] Diabetes Association (ADA) provides guidance for cutoff values for fasting glucose and random glucose. The ADA defines fasting as no caloric intake for at least 8 hours. Fasting plasma glucose results between 100 to 125 mg/dL indicate increased risk for diabetes (prediabetes). Fasting plasma glucose results greater than or equal to 126 mg/dL meet the criteria for diagnosis of diabetes. In the absence of unequivocal hyperglycemia, results should be confirmed by repeat testing. In a patient with classic symptoms of hyperglycemia or hyperglycemic crisis, random plasma glucose results greater than or equal to 200 mg/dL meet the criteria for diagnosis of diabetes. Reference: Standards of Medical Care in Diabetes 2016, [place] [employer] Association. Diabetes Care. 2016.39(Suppl 1). Performed By: #### 2 4321-2, 2777-1 ####[facility] LABORATORYCLIA [id number] [place] [id number] [place] Potassium [Moles/Vol] 3.8 mmol/L Normal 3.7-5.1 [facility] Comment on above: Order Comment: Speci men Type: BLOOD SPECIMENOrdering Facility: [facility] Address: [address] [place] [address] Performed By: #### 2 4321-2, 277- ####[facility]ORATORYCLIA [id number] [address] [place] [facility] Sodium [Moles/Vol] 141 mmol/L Normal 136-144 [facility] Comment on above: Order Comment: Speci men Type: BLOOD SPECIMENOrdering Facility: [facility] Address: [address] [place] [address] Performed By: #### 2 4321-2, 2776- ####[facility]ORATORYCLIA [id number] [address] Urea nitrogen [Mass/Vol] 11 mg/dL Normal 7-21 [facility] Comment on above: Order Comment: Speci men Type: BLOOD SPECIMENOrdering Facility: [facility] Address: [address] [place] [address] Performed By: #### 2 4321-2, 2776-11 ####[facility]ORATORYCLIA [id number] [address] CBC panel Auto (Bld)on 09-12 Erythrocyte distribution width (RBC) [Ratio] 13.4 % Normal 11.5-15.0 [facility] Comment on above: Order Comment: Speci men Type: BLOOD SPECIMENOrdering Facility: [facility] Address: [address] [place] [address] Performed By: #### 5 8410-2 ####[facility] LABORATORYCLIA [id number] [address] Hematocrit (Bld) [Volume fraction] 35.1 % Low 36.0-46.0 [facility] Comment on above: Order Comment: Speci men Type: BLOOD SPECIMENOrdering Facility: [facility] Address: [address] [place] [address] Performed By: #### 5 8410-2 ####[facility] LABORATORYCLIA [id number] [address] STATES OF [facility] Hemoglobin (Bld) [Mass/Vol] 11.8 g/dL Normal 11.5-15.5 [facility] Comment on above: Order Comment: Speci men Type: BLOOD SPECIMENOrdering Facility: [facility] Address: [address] [place] [address] Performed By: #### 5 8410-2 ####[facility] LABORATORYCLIA [id number] [address] MCH (RBC) [Entitic mass] 31.5 pg Normal 26.0-34.0 [facility] Comment on above: Order Comment: Speci men Type: BLOOD SPECIMENOrdering Facility: [facility] Address: [address] [place] [address] Performed By: #### 5 8410-2 ####[facility]ORATORYCLIA [id number] [address] MCHC (RBC) [Mass/Vol] 33.6 g/dL Normal 30.5-36.0 [facility] Comment on above: Order Comment: Speci men Type: BLOOD SPECIMENOrdering Facility: [facility] Address: [address] [place] [address] Performed By: #### 5 8410-2 ####[facility] LABORATORYCLIA [id number] [address] [place] MCV (RBC) [Entitic vol] 93.6 fL Normal 80.0-100.0 [facility] Comment on above: Order Comment: Speci men Type: BLOOD SPECIMENOrdering Facility: [facility] Address: [address] [place] [address] Performed By: #### 5 8410-2 ####[facility] LABORATORYCLIA [id number] [address] Nucleated RBC (Bld) [#/Vol] 10*3/uL Normal <0.01 [facility] Comment on above: Order Comment: Speci men Type: BLOOD SPECIMENOrdering Facility: [facility] Address: [address] [place] [address] Performed By: #### 5 8410-2 ####[facility] LABORATORYCLIA [id number] [address] STATES [facility] Platelet mean volume (Bld) [Entitic vol] 9.0 fL Normal 9.0-12.7 [facility] Comment on above: Order Comment: Speci men Type: BLOOD SPECIMENOrdering Facility: [facility] Address: [address] [place] [address] Performed By: #### 5 8410-2 ####[facility] LABORATORYCLIA [id number] [address] [place] Platelets (Bld) [#/Vol] 277 10*3/uL Normal 150-400 [facility] Comment on above: Order Comment: Speci men Type: BLOOD SPECIMENOrdering Facility: [facility] Address: [address] [place] [address] Performed By: #### 5 8410-2 ####[facility] LABORATORYCLIA [id number] [place] [address] [place] RBC (Bld) [#/Vol] 3.75 10*6/uL Low 3.90-5.20 [facility] Comment on above: Order Comment: Speci men Type: BLOOD SPECIMENOrdering Facility: [facility] Address: [address] [place] [address] Performed By: #### 5 8410-2 ####[facility] LABORATORYCLIA [id number] [place] [address] [place] WBC (Bld) [#/Vol] 7.47 10*3/uL Normal 3.70-11.00 [facility] Comment on above: Order Comment: Speci men Type: BLOOD SPECIMENOrdering Facility: [facility] Address: [address] [place] [address] Performed By: #### 5 8410-2 ####[facility] LABORATORYCLIA [id number] [address] [place] Phosphate SerPl-mCncon 09-12 Phosphate [Mass/Vol] 3.7 mg/dL Normal 2.7-4.8 [facility] Comment on above: Order Comment: Speci men Type: BLOOD SPECIMENOrdering Facility: [facility] Address: [address] [place] [address] Performed By: #### 2 4321-2, 2777-1 ####[facility] LABORATORYCLIA [id number] [address] OF [facility] Basic metabolic 2000 panelon 09-11-2025 Anion gap [Moles/Vol] 11 mmol/L Normal 8-15 [facility] Comment on above: Order Comment: Speci men Type: BLOOD SPECIMENOrdering Facility: [facility] Address: [address] [place] [address] Performed By: #### 2 4321-2, 2777-1 ####[facility] LABORATORYCLIA [id number] [address] STATES OF [facility] Calcium [Mass/Vol] 8.6 mg/dL Normal 8.5-10.2 [facility] Comment on above: Order Comment: Speci men Type: BLOOD SPECIMENOrdering Facility: [facility] Address: [address] [place] [address] Performed By: #### 2 4321-2, 2777- ####[facility] LABORATORYCLIA [id number] [place] [address] [place] Chloride [Moles/Vol] 105 mmol/L Normal 98-107 [facility] Comment on above: Order Comment: Speci men Type: BLOOD SPECIMENOrdering Facility: [facility] Address: [address] [place] [address] Performed By: #### 2 4321-2, 2777-1 ####[facility]ORATORYCLIA [id number] [place] [address] [place] CO2 [Moles/Vol] 25 mmol/L Normal 22-30 [facility] Comment on above: Order Comment: Speci men Type: BLOOD SPECIMENOrdering Facility: [facility] Address: [address] [place] [address] Performed By: #### 2 4321-2, 2776-11 ####[facility]ITALCLIA [id number] [place] [id number] [facility] Creatinine [Mass/Vol] 0.75 mg/dL Normal 0.58-0.96 [facility] Comment on above: Order Comment: Speci men Type: BLOOD SPECIMENOrdering Facility: [facility] Address: [address] [place] [address] Performed By: #### 2 4321-2, 2776-11 ####[facility] LABORATORYCLIA [id number] [place] [id number] [facility] eGFRcr SerPlBld CKD-EPI 2020 80 mL/min/1.73m??? Normal >=60 [facility] Comment on above: Order Comment: Speci men Type: BLOOD SPECIMENOrdering Facility: [facility] Address: [address] [place] [address] Result Comment: Isabelle mated Glomerular Filtration Rate (eGFR) is calculated using the 2020 CKD-EPI creatinine equation. This equation utilizes serum creatinine, sex, and age as parameters. The creatinine assay has traceable calibration to isotope dilution-mass spectrometry. Refer to KDIGO guidelines for clinical interpretation. In patients with unstable renal function, e.g. those with acute kidney injury, the eGFR may not accurately reflect actual GFR. Performed By: #### 2 4321-2, 2776-11 ####[facility] LABORATORYCLIA [id number] [place] [id number] [place] OF [facility] Glucose [Mass/Vol] 96 mg/dL Normal 74-99 [facility] Comment on above: Order Comment: Speci men Type: BLOOD SPECIMENOrdering Facility: [facility] Address: [address] [place] [address] Result Comment: The [place] Diabetes Association (ADA) provides guidance for cutoff values for fasting glucose and random glucose. The ADA defines fasting as no caloric intake for at least 8 hours. Fasting plasma glucose results between 100 to 125 mg/dL indicate increased risk for diabetes (prediabetes). Fasting plasma glucose results greater than or equal to 126 mg/dL meet the criteria for diagnosis of diabetes. In the absence of unequivocal hyperglycemia, results should be confirmed by repeat testing. In a patient with classic symptoms of hyperglycemia or hyperglycemic crisis, random plasma glucose results greater than or equal to 200 mg/dL meet the criteria for diagnosis of diabetes. Reference: Standards of Medical Care in Diabetes 2016, [place] [employer] Association. Diabetes Care. 2016.39(Suppl 1). Performed By: #### 2 432-2, 2776-11 ####[facility] LABORATORYCLIA [id number] [place] [address] [place] Potassium [Moles/Vol] 3.3 mmol/L Low 3.7-5.1 [facility] Comment on above: Order Comment: Obie barger Type: BLOOD SPECIMENOrdering Facility: [facility] Address: [address] [place] [address] Performed By: #### 2 43211-28, 2776-11 ####[facility]ITALCLIA [id number] [address] STATES [facility] Sodium [Moles/Vol] 141 mmol/L Normal 136-144 [facility] Comment on above: Order Comment: Obie barger Type: BLOOD SPECIMENOrdering Facility: [facility] Address: [address] [place] [address] Performed By: #### 2 43211-28, 2776-11 ####[facility] LABORATORYCLIA [id number] [address] [place] [facility] Urea nitrogen [Mass/Vol] 8 mg/dL Normal 7-21 [facility] Comment on above: Order Comment: Obie barger Type: BLOOD SPECIMENOrdering Facility: [facility] Address: [address] [place] [address] Performed By: #### 2 4322, 2776-11 ####[facility] LABORATORYCLIA [id number] [address] OF [facility] CBC panel Auto (Bld)on 09-11 Erythrocyte distribution width (RBC) [Ratio] 13.8 % Normal 11.5-15.0 [facility] Comment on above: Order Comment: Speci men Type: BLOOD SPECIMENOrdering Facility: [facility] Address: [address] [place] [address] Performed By: #### 5 8410-2 ####[facility] LABORATORYCLIA [id number] [address] OF [facility] Hematocrit (Bld) [Volume fraction] 32.3 % Low 36.0-46.0 [facility] Comment on above: Order Comment: Speci men Type: BLOOD SPECIMENOrdering Facility: [facility] Address: [address] [place] [address] Performed By: #### 5 8410-2 ####[facility] LABORATORYCLIA [id number] [address] OF [facility] Hemoglobin (Bld) [Mass/Vol] 10.7 g/dL Low 11.5-15.5 [facility] Comment on above: Order Comment: Speci men Type: BLOOD SPECIMENOrdering Facility: [facility] Address: [address] [place] [address] Performed By: #### 5 8410-2 ####[facility] LABORATORYCLIA [id number] [address] MCH (RBC) [Entitic mass] 31.2 pg Normal 26.0-34.0 [facility] Comment on above: Order Comment: Speci men Type: BLOOD SPECIMENOrdering Facility: [facility] Address: [address] [place] [address] Performed By: #### 5 8410-2 ####[facility] LABORATORYCLIA [id number] [address] [place] MCHC (RBC) [Mass/Vol] 33.1 g/dL Normal 30.5-36.0 [facility] Comment on above: Order Comment: Speci men Type: BLOOD SPECIMENOrdering Facility: [facility] Address: [address] [place] [address] Performed By: #### 5 8410-2 ####[facility] LABORATORYCLIA [id number] [address] OF [facility] MCV (RBC) [Entitic vol] 94.2 fL Normal 80.0-100.0 [facility] Comment on above: Order Comment: Speci men Type: BLOOD SPECIMENOrdering Facility: [facility] Address: [address] [place] [address] Performed By: #### 5 8410-2 ####[facility] LABORATORYCLIA [id number] [address] [place] Nucleated RBC (Bld) [#/Vol] 10*3/uL Normal <0.01 [facility] Comment on above: Order Comment: Speci men Type: BLOOD SPECIMENOrdering Facility: [facility] Address: [address] [place] [address] Performed By: #### 5 8410-2 ####[facility] LABORATORYCLIA [id number] [address] [place] Platelet mean volume (Bld) [Entitic vol] 9.3 fL Normal 9.0-12.7 [facility] Comment on above: Order Comment: Speci men Type: BLOOD SPECIMENOrdering Facility: [facility] Address: [address] [place] [address] Performed By: #### 5 8410-2 ####[facility] LABORATORYCLIA [id number] [address] Platelets (Bld) [#/Vol] 256 10*3/uL Normal 150-400 [facility] Comment on above: Order Comment: Speci men Type: BLOOD SPECIMENOrdering Facility: [facility] Address: [address] [place] [address] Performed By: #### 5 8410-2 ####[facility] LABORATORYCLIA [id number] [address] [place] RBC (Bld) [#/Vol] 3.43 10*6/uL Low 3.90-5.20 [facility] Comment on above: Order Comment: Speci men Type: BLOOD SPECIMENOrdering Facility: [facility] Address: [address] [place] [address] Performed By: #### 5 8410-2 ####[facility] LABORATORYCLIA [id number] [place] [address] [facility] WBC (Bld) [#/Vol] 6.99 10*3/uL Normal 3.70-11.00 [facility] Comment on above: Order Comment: Speci men Type: BLOOD SPECIMENOrdering Facility: [facility] Address: [facility] [place] [id number] Performed By: #### 5 8410-2 ####[facility] LABORATORYCLIA [id number] [place] [address] [facility] CONSULT PROGon 09-11-2025 CONSULT PROG HNO ID: [id number] Author: CRUZ MANCILLA APRN.COMMUTATOR TESTER Service: Neurosurgery Author Type: Nurse Practitioner Type: Consult Progress Note Filed: 09/11/2025 16:14 Note Text: Neurosurgery Progress Note SERVICE DATE: 09/11/2025 SUBJECTIVE: Patient is alert oriented and without N/V and mild CALDERÓN OBJECTIVE: Vitals: Temp (24hrs), Av.7 ?C (98.1 ?F), Min:36.3 ?C (97.4 ?F), Max:36.9 ?C (98.5 ?F) BP 163/89 Pulse 67 Temp 36.7 ?C (98 ?F) (Oral) Resp 16 Ht 149.9 cm (4' 11") Wt 52.2 kg (115 lb 1.3 oz) SpO2 97% BMI 23.24 kg/m? O2 Therapy: Room Air IANDO: Date 09/10/25699 - 09/11/2565809/11/25699 - 09/12/25 0659 Shift 3243-8487 0525-4489 5962-3041 24 Hour Total 6961-0277 8434-2293 7750-3063 24 Hour Total INTAKE PO 180 180 PO 180 180 Shift Total 180 180 OUTPUT Urine 300 7670 768 2321 500 500 Void (ml) 300 7335 152 2748 500 500 Urine Not Saved. 1 x 2 x 3 x 1 x 1 x # of BMs Number of BMs 1 x 1 x 2 x Shift Total 300 3854 449 1681 500 500 Weight (kg) 52.2 52.2 52.2 52.2 52.2 52.2 52.2 52.2 Medications: Current Facility-Administered Medications Medication Dose Route Frequency losartan 100 mg tab(s) (COZAAR) 100 mg ORAL DAILY phosphorus 250 mg tab(s) (K PHOS NEUTRAL) 250 mg ORAL PC and HS acetaminophen 650 mg tab(s) (TYLENOL) 650 mg ORAL q 4 H PRN oxyCODONE IR 2.5 mg tab(s) (ROXICODONE) 2.5 mg ORAL q 6 H PRN labetalol 5 mg injection syringe (NORMODYNE) 5 mg INTRAVENOUS q 2 H PRN hydrALAZINE 10 mg injection (APRESOLINE) 10 mg INTRAVENOUS q 6 H PRN melatonin 9 mg tab(s) 9 mg ORAL DAILY (8 PM) prochlorperazine 5 mg tab(s) (COMPAZINE) 5 mg ORAL q 6 H PRN metoprolol succinate ER 25 mg tab(s) (TOPROL XL) 25 mg ORAL DAILY NaCl 0.9% iv flush bag 20 mL INTRAVENOUS PRN ondansetron 4 mg tab(s) (ZOFRAN) 4 mg ORAL q 6 H PRN Or ondansetron (PF) 4 mg injection (ZOFRAN) 4 mg INTRAVENOUS q 6 H PRN NaCl 0.9% iv flush bag 20 mL INTRAVENOUS PRN Labs: Recent Labs 09/11/25 0508 09/10/25 0343 09/09/25 0236 NA 141 137 137 K 3.3* 4.2 4.3 CHLOR 105 103 101 CO2 25 25 20* BUN 8 11 16 CREAT 0.75 0.88 0.86 GLUC 96 95 122* ANION 11 9 16* CA 8.6 8.4* 8.7 MG -- 2.2 2.2 P 3.1 3.3 4.9* WBC 6.99 8.47 12.34* HB 10.7* 10.1* 12.0 HCT 32.3* 30.7* 35.8* PLT 256 229 272 Imaging IMPRESSION: 1. No significant interval change compared to 09/10/2025. 2. Bilateral subdural gas-hemorrhagic collections causing mass effect, left slightly more than right. 3. Status post bifrontal yenni hole craniotomy for subdural evacuation. Threat Monitoring Analyst: OSBALDO Transcribe Date/Time: Sep 11 2025 9:31A Bilateral extra-axial fluid is overall increased in volume from prior with persistent but mildly decreased pneumocephalus. Similar to mildly decreased bihemispheric mass effect with degree of parenchymal reexpansion. No midline shift. COMMUNICATION: Communicated with Sherman Beth MD on 09/10/2025 8:08 AM via verbal communication. Threat Monitoring Analyst: OSBALDO Transcribe Date/Time: Sep 10 2025 7:53A Exam: GENERAL: No distress, Alert NEURO: Neuro : A+O x3, PERRL, makes eye contact, speech clear, cranial nerves 2-12 grossly intact , GREY, strength 5/5 BUE and BLE and equal HEENT: normocephalic, bilateral bur hole incisions LUNGS: Unlabored breathing CARDIAC: Regular rate and rhythm as above ABDOMEN: Soft, non-tender, non-distended EXTREMITIES: GREY, No deformities, No edema SKIN: Skin color, texture, turgor normal, No rashes or lesions ASSESSMENT AND PLAN: Active Hospital Problems Diagnosis Date Noted Subdural hematoma (HCC) 09/07/2025 Fall 09/08/2025 Sacral fracture, closed (HCC) 09/08/2025 Hypertension 09/06/2025 Hyperlipidemia 08/26/2025 Overview Note: Comment on above: intolerant of statins 84 year old female with hx of HTN, HLD and remote roscoe and hysterectomy who presents after fall on treadmill. CT imaging demonstrating bilateral subdural hematoma. POD#3 bilateral yenni holes for evacuation of subdural hematoma 09/09: NIL for MMA embo -neuro as above-intact -neuro checks Q4htrs -CT head this am pending -regular diet -prn oxy and morphine for pain -PT/OT eval and TX -care management following -SBP <160 -please mobilize -DVT PPx:SQH 48 hours post stable scan -ok for RNF from NSGY perspective -Trauma primary ADDENDUM: Ct brain completed and is stable in comparison to previous CT scan. Ok for SQH tomorrow, ok for DC from a NSGY standpoint. We will follow up with the patient in the outpatient setting with a repeat CT brain in two weeks. Portions of text from this note were copied. All relevant information was reviewed and updated accordingly on 09/11/2025 SIGNATURE: Cruz Mancilla APRN.CNP PATIENT NAME: Sharon Love DATE: September 11, 2025 TIME: 9:10 AM Cruz Mancilla APRN.COMMUTATOR TESTER To contact Page Neurosurgery BAKARI Neurosurgery BAKARI Pager: [phone] Normal [facility] CT BRAIN WO IVCONon 09-11-20 CT BRAIN WO IVCON * * *Final Report* * * DATE OF EXAM: Sep 11 2025 9:26AM [facility] 0504 - CT BRAIN WO IVCON / PROCEDURE REASON: post op follow up post bilateral yenni holes * * * * Physician Interpretation * * * * EXAMINATION: CT BRAIN WITHOUT IV CONTRAST CLINICAL HISTORY: Postoperative follow-up. Status post bilateral yenni hole craniotomies for subdural hemorrhage. TECHNIQUE: Serial axial images without IV contrast were obtained from the vertex to the foramen magnum. MQ: [id number]_3 CT Radiation dose: Integrated Dose-Length Product (DLP) for this visit = 795 mGy*cm CT Dose Reduction Employed: Automated exposure control(AEC) and iterative recon COMPARISON: CT brain 09/10/2025. CT brain 09/08/2025 5:40 PM. RESULT: Localizer images: Unremarkable. Post-operative change: Evidence of bilateral frontal yenni hole craniotomies are noted. Bilateral moderate pneumocephalus is again noted anteriorly. Acute change: No evidence of an acute infarct or other acute parenchymal process. Hemorrhage: Bilateral subdural fluid collections are again noted, hypoattenuating on the right and both increased and intermediate attenuation on the left. No evidence of new intracranial hemorrhage ECASS hemorrhagic transformation score: Not Applicable Mass Lesion / Mass Effect: There is mass effect in the bilateral cerebral convexities, left slightly more than right that does not appear significantly changed. There is no significant midline shift. No significant mass effect. Chronic change: None apparent. Parenchyma: There is no significant volume loss. The brain parenchyma is otherwise within normal limits for age. Ventricles: The ventricles are within normal limits of size and configuration for age. Paranasal sinuses and skull base: The visualized paranasal sinuses are grossly clear. The skull base and imaged soft tissues are unremarkable. IMPRESSION: 1. No significant interval change compared to 09/10/2025. 2. Bilateral subdural gas-hemorrhagic collections causing mass effect, left slightly more than right. 3. Status post bifrontal yenni hole craniotomy for subdural evacuation. Threat Monitoring Analyst: OSBALDO Transcribe Date/Time: Sep 11 2025 9:31A Dictated by : THOMAS DOBBS MD This examination was interpreted and the report reviewed and electronically signed by: THOMAS DOBBS MD on Sep 11 2025 9:42AM EST [id number] Normal [facility] Phosphate SerPl-mCncon 09-11 Phosphate [Mass/Vol] 3.1 mg/dL Normal 2.7-4.8 [facility] Comment on above: Order Comment: Speci men Type: BLOOD SPECIMENOrdering Facility: [facility] Address: [address] [place] [address] Performed By: #### 2 4321-2, 2777-1 ####[facility] LABORATORYCLIA [id number] [address] THERAPY NTon 09-11-2025 THERAPY NT HNO ID: [id number] Author: BERNADETTE HARVEY CCC-MASS COMMUNICATIONS INSTRUCTOR Service: Speech/Swallow Author Type: Speech Language Pathologist Type: Therapy (PT/OT/Speech/Resp) Filed: 09/11/2025 15:29 Note Text: Speech Therapy Speech Evaluation SERVICE DATE: 09/11/2025 SERVICE TIME: 1505 to 1521 ROOM: [place] [address] IMPRESSION Communication deficits identified: Cognitive deficits RECOMMENDATIONS Nursing Recommendations Promote insight/safety opportunities Response to Therapy Interventions: Good participation in activities, Receptive family/caregivers Rehabilitation Precautions: Cognitive Linguistics Deficits DISCHARGE RECOMMENDATIONS Recommended Discharge Disposition: Acute Rehab Justification for Recommended Discharge Disposition: Patient requires an intensive inpatient rehabilitation therapy program due to:, complexity requiring a multi-disciplinary team approach, new/worsened cognitive deficits related to current diagnosis, requires active, intensive and ongoing intervention of multiple therapy disciplines CURRENT HOSPITAL COURSE Transfer from [place] post fall. 09/08 CT Brain: bilateral frontoparietal subdural hematomas + mass effect; OR bilateral yenni holes. 09/09 NIL MMA embo Reason for Speech Therapy Consult: TBI Relevant Past Medical History: HTN, HLD HOME ENVIRONMENT / PRIOR FUNCTIONAL LEVEL Prior Functional Level: Within Functional Limits Patient Lives With: Spouse Prior Swallowing Function/Diet Textures: Regular Consistency, Thin Liquids IDDSI Level 0 SUBJECTIVE Alert, up in chair and agreeable to evaluation THERAPY DIAGNOSIS Cognitive deficits following cerebral infarction TREATMENT INTERVENTIONS Speech Language Eval (25094) Skilled Treatment Time (minutes): 16 $ Speech Language Eval (64313) Billed Units: 1 unit TRAINING AND EDUCATION PROVIDED IN Cognitive Linguistic Strategies THERAPEUTIC SKILLS USED Discharge planning, Verbal cuing, Family / caregiver counseling / training, Education on role of discipline / importance of activity OBJECTIVE Current Status Oral Hygiene: Clear, dry oral cavity Dentition: Retains Natural Dentition Current Feeding Method: Oral Current Diet Textures: Regular Consistency, Thin Liquids IDDSI Level 0 Current Level Of Communication: Verbal Current Management Of Secretions: Able to self-manage Oral Motor Exam: Within Functional Limits COGNITION Cognitive Status: patient states she "feels fine" - family believes she is doing better on "tests" than she is actually able to in functional or more difficult activities and are still seeing areas of concern in regards to cognition Cognitive Deficits: Attention Deficit: Sustained Memory Deficits: Short Term Executive Function Deficits: Safety Awareness, Problem Solving The Cognitive Log (Cog-Log) is designed to be a quick quantitative measure of cognition status for use at the bedside with rehabilitation inpatients. It is intended for individuals who have achieved consistent accurate orientation, such as measured by the Orientation Log (O-Log). The Cog-Log can be used to document cognitive progress on a daily basis. All items are scored from 0 to 3 for a total possible score of 30. 3 = correct spontaneous response 2 = correct upon logical cueing (e.g., That was yesterday, so today must be...") 1 = correct upon multiple choice or phonemic cueing 0 = incorrect despite cueing, inappropriate response, or unable to respond Stimulus Response/Score Date 01/27 Time 01/27 Name of [facility] 01/27 Repeat Address 01/27 20-1 01/27 Months Reversed 01/27 30 Seconds 0 Ggau-Tlhq-Omnx 01/27 Go/No-Go 01/27 Address Recall 12/30 Total SPEECH/VOICE/LANGUAGE Speech Production: Within Functional Limits Expressive and Receptive Language: Within Functional Limits GOALS COGNITION: Patient will demonstrate knowledge of taught compensatory strategies for functional cognitive-linguistic skills Cognitive Goals: Patient will improve functional auditory memory skills to 90% accuracy given minimal cues so that the patient may apply safety precautions for personal welfare. Patient will demonstrate use of complex problem solving skills with 90% accuracy given minimal cues so that the patient may participate in personal discharge planning. Patient will improve selective, divided, and alternating attention skills so that the patient may activley participate in ADL care given minimal cues with 90% accuracy. Speech Rehab Potential: Good Good Rehab Potential Due To: Good support system/ coping skills, Good motivation, Current objective clinical presentation Patient /Caregiver Goals: Improve Cognition ACUTE CARE TREATMENT PLAN ST Frequency: 2 Times Per Week Treatment Interventions: Cognitive-Linguistic Management Plan of Care Developed with: Patient, Family Plan for next visit: Cognitive Linguistic Strategies SIGNATURE: Bernadette Harvey CCC-MASS COMMUNICATIONS INSTRUCTOR PATIENT NAME: Sharon Love DATE: September 11, (more content not included)... Normal [facility] HNO ID: [id number] Author: TARYN RAMIREZ RT(R) Service: Radiology Author Type: Technologist Type: Allied Health Filed: 09/10/2025 07:26 Note Text: Radiology Service Progress Note PATIENT NAME: Sharon Love DATE OF SERVICE: September 10, 2025 TIME: 7:24 AM PATIENT IDENTITY VERIFICATION COMPLETED USING TWO (2) IDENTIFIERS: Name and Date of confirmed by patient verbally and Name and Date of confirmed by identification band. FALL SCREENING: Has the patient had 2 falls in the last year or 1 fall with injury or currently using an Ambulatory Assistive Device (Walker, Cane, Wheelchair, Crutches, etc.)? No PATIENT GENDER DATA: Assigned female at . status: : No status: NO. PATIENT RELEVANT IMPLANT DATA REVIEWED: Not Applicable PATIENT PRESENTS WITH AN IMPLANTABLE OR ATTACHED RECREATION COORDINATOR: No RADIOLOGY DEPARTMENT: CT; Exam(s) Completed: Brain . Anesthesia: No PERIPHERAL IV DATA: Not applicable SIGNED BY: RT Mahad(R) September 10, 2025 7:24 AM Normal [facility] Basic metabolic 2000 panelon 09-10-2025 Anion gap [Moles/Vol] 9 mmol/L Normal - [facility] Comment on above: Order Comment: Speci men Type: BLOOD SPECIMENOrdering Facility: [facility] Address: [address] [place] [address] Performed By: #### 1 4670-9, 4960-1, 83192-3 ####[facility] LABORATORYCLIA [id number] [place] [address] [place] Calcium [Mass/Vol] 8.4 mg/dL Low 8.5-10.2 [facility] Comment on above: Order Comment: Speci men Type: BLOOD SPECIMENOrdering Facility: [facility] Address: [address] [place] [address] Performed By: #### 1 9123-9, 27705-27, 67634-1 ####[facility] LABORATORYCLIA [id number] [place] [address] [place] Chloride [Moles/Vol] 103 mmol/L Normal 98-107 [facility] Comment on above: Order Comment: Speci men Type: BLOOD SPECIMENOrdering Facility: [facility] Address: [address] [place] [address] Performed By: #### 1 9123-9, 27705-27, 65064-0 ####[facility] LABORATORYCLIA [id number] [place] [address] [place] CO2 [Moles/Vol] 25 mmol/L Normal 22-30 [facility] Comment on above: Order Comment: Speci men Type: BLOOD SPECIMENOrdering Facility: [facility] Address: [address] [place] [address] Performed By: #### 1 9123-9, 27705-27, 77957-6 ####[facility] LABORATORYCLIA [id number] [place] [address] [place] Creatinine [Mass/Vol] 0.88 mg/dL Normal 0.58-0.96 [facility] Comment on above: Order Comment: Speci men Type: BLOOD SPECIMENOrdering Facility: [facility] Address: [address] [place] [address] Performed By: #### 1 9123-9, 27705-27, 21585-4 ####[facility] LABORATORYCLIA [id number] [place] [address] [place] eGFRcr SerPlBld CKD-EPI 2020 66 mL/min/1.73m??? Normal >=60 [facility] Comment on above: Order Comment: Obie barger Type: BLOOD SPECIMENOrdering Facility: [facility] Address: [address] [place] [address] Result Comment: Isabelle mated Glomerular Filtration Rate (eGFR) is calculated using the 2020 CKD-EPI creatinine equation. This equation utilizes serum creatinine, sex, and age as parameters. The creatinine assay has traceable calibration to isotope dilution-mass spectrometry. Refer to KDIGO guidelines for clinical interpretation. In patients with unstable renal function, e.g. those with acute kidney injury, the eGFR may not accurately reflect actual GFR. Performed By: #### 1 9123-9, 2777-1, 46849-7 ####[facility] [id number] [place] [address] [place] Glucose [Mass/Vol] 95 mg/dL Normal 74-99 [facility] Comment on above: Order Comment: Obie barger Type: BLOOD SPECIMENOrdering Facility: [facility] Address: [address] [place] [address] Result Comment: The [place] Diabetes Association (ADA) provides guidance for cutoff values for fasting glucose and random glucose. The ADA defines fasting as no caloric intake for at least 8 hours. Fasting plasma glucose results between 100 to 125 mg/dL indicate increased risk for diabetes (prediabetes). Fasting plasma glucose results greater than or equal to 126 mg/dL meet the criteria for diagnosis of diabetes. In the absence of unequivocal hyperglycemia, results should be confirmed by repeat testing. In a patient with classic symptoms of hyperglycemia or hyperglycemic crisis, random plasma glucose results greater than or equal to 200 mg/dL meet the criteria for diagnosis of diabetes. Reference: Standards of Medical Care in Diabetes 2016, [place] Diabetes Association. Diabetes Care. 2016.39(Suppl 1). Performed By: #### 1 9123-9, 2777-1, 34225-9 ####[facility] [id number] [place] [id number] [place] Potassium [Moles/Vol] 4.2 mmol/L Normal 3.7-5.1 [facility] Comment on above: Order Comment: Speci men Type: BLOOD SPECIMENOrdering Facility: [facility] Address: [address] [place] [address] Performed By: #### 1 9123-9, 2777-, 90725-0 ####[facility] LABORATORYCLIA [id number] [address] STATES [facility] Sodium [Moles/Vol] 137 mmol/L Normal 136-144 [facility] Comment on above: Order Comment: Speci men Type: BLOOD SPECIMENOrdering Facility: [facility] Address: [address] [place] [address] Performed By: #### 1 9123-9, 2777, 69867-9 ####[facility] LABORATORYCLIA [id number] [address] STATES OF [facility] Urea nitrogen [Mass/Vol] 11 mg/dL Normal 7-21 [facility] Comment on above: Order Comment: Speci men Type: BLOOD SPECIMENOrdering Facility: [facility] Address: [address] [place] [address] Performed By: #### 1 9123-9, 27705-27, 80303-8 ####[facility] LABORATORYCLIA [id number] [address] CBC panel Auto (Bld)on 09-10 Erythrocyte distribution width (RBC) [Ratio] 13.6 % Normal 11.5-15.0 [facility] Comment on above: Order Comment: Speci men Type: BLOOD SPECIMENOrdering Facility: [facility] Address: [address] [place] [address] Performed By: #### 5 8410-2 ####[facility] LABORATORYCLIA [id number] [address] Hematocrit (Bld) [Volume fraction] 30.7 % Low 36.0-46.0 [facility] Comment on above: Order Comment: Speci men Type: BLOOD SPECIMENOrdering Facility: [facility] Address: [address] [place] [address] Performed By: #### 5 8410-2 ####[facility] LABORATORYCLIA [id number] [address] STATES OF [facility] Hemoglobin (Bld) [Mass/Vol] 10.1 g/dL Low 11.5-15.5 [facility] Comment on above: Order Comment: Speci men Type: BLOOD SPECIMENOrdering Facility: [facility] Address: [address] [place] [address] Performed By: #### 5 8410-2 ####[facility] LABORATORYCLIA [id number] [address] MCH (RBC) [Entitic mass] 31.2 pg Normal 26.0-34.0 [facility] Comment on above: Order Comment: Speci men Type: BLOOD SPECIMENOrdering Facility: [facility] Address: [address] [place] [address] Performed By: #### 5 8410-2 ####[facility] LABORATORYCLIA [id number] [address] MCHC (RBC) [Mass/Vol] 32.9 g/dL Normal 30.5-36.0 [facility] Comment on above: Order Comment: Speci men Type: BLOOD SPECIMENOrdering Facility: [facility] Address: [address] [place] [address] Performed By: #### 5 8410-2 ####[facility] LABORATORYCLIA [id number] [address] [place] MCV (RBC) [Entitic vol] 94.8 fL Normal 80.0-100.0 [facility] Comment on above: Order Comment: Speci men Type: BLOOD SPECIMENOrdering Facility: [facility] Address: [address] [place] [address] Performed By: #### 5 8410-2 ####[facility] LABORATORYCLIA [id number] [address] Nucleated RBC (Bld) [#/Vol] 10*3/uL Normal <0.01 [facility] Comment on above: Order Comment: Speci men Type: BLOOD SPECIMENOrdering Facility: [facility] Address: [address] [place] [address] Performed By: #### 5 8410-2 ####[facility] LABORATORYCLIA [id number] [address] [place] [facility] Platelet mean volume (Bld) [Entitic vol] 9.0 fL Normal 9.0-12.7 [facility] Comment on above: Order Comment: Speci men Type: BLOOD SPECIMENOrdering Facility: [facility] Address: [address] [place] [address] Performed By: #### 5 8410-2 ####[facility] LABORATORYCLIA [id number] [address] [place] Platelets (Bld) [#/Vol] 229 10*3/uL Normal 150-400 [facility] Comment on above: Order Comment: Speci men Type: BLOOD SPECIMENOrdering Facility: [facility] Address: [address] [place] [address] Performed By: #### 5 8410-2 ####[facility] LABORATORYCLIA [id number] [place] [address] [place] RBC (Bld) [#/Vol] 3.24 10*6/uL Low 3.90-5.20 [facility] Comment on above: Order Comment: Speci men Type: BLOOD SPECIMENOrdering Facility: [facility] Address: [address] [place] [address] Performed By: #### 5 8410-2 ####[facility] LABORATORYCLIA [id number] [address] [place] WBC (Bld) [#/Vol] 8.47 10*3/uL Normal 3.70-11.00 [facility] Comment on above: Order Comment: Speci men Type: BLOOD SPECIMENOrdering Facility: [facility] Address: [address] [place] [address] Performed By: #### 5 8410-2 ####[facility] LABORATORYCLIA [id number] [address] [place] CONSULT PROGon 09-10-2025 CONSULT PROG HNO ID: [id number] Author: RIZWAN MONTAÑO APRN.COMMUTATOR TESTER Service: Neurosurgery Author Type: Nurse Practitioner Type: Consult Progress Note Filed: 09/10/2025 07:48 Note Text: Neurosurgery Progress Note SERVICE DATE: 09/10/2025 SUBJECTIVE: NAEON. Patient endorses headache earlier this am that is improved with tylenol as well as some nausea last night, no nausea this am. Denies dizziness, visual changes. OBJECTIVE: Vitals: Temp (24hrs), Av.3 ?C (97.3 ?F), Min:36 ?C (96.8 ?F), Max:36.5 ?C (97.7 ?F) BP 121/64 Pulse (!) 58 Temp 36.1 ?C (97 ?F) Resp 13 Ht 147.3 cm (4' 10") Wt 49.4 kg (109 lb) SpO2 99% BMI 22.78 kg/m? O2 Therapy: Room Air IANDO: Date 09/09/25699 - 09/10/25 0659 09/10/25 07 - 09/11/25 0659 Shift 6289-8907 7836-0899 1671-5749 24 Hour Total 2153-7949 3286-2613 4155-6186 24 Hour Total INTAKE PO 560 240 800 PO 560 240 800 IV 3200 150 3350 OR Crystalloid intake (mL) 900 900 Volume (mL) (NaCl 0.9% iv infusion) 150 150 Volume (mL) (NaCl 0.9% iv infusion) 2300 2300 Other 132 132 OR 132 132 Shift Total 3332 923 642 3248 OUTPUT Urine 0 6816 597 5819 Void (ml) 600 250 850 Output ([REMOVED] External Collection Device 09/09/25 1013 [facility] 09/09/25 1606) 0 700 700 # of BMs Number of BMs 2 x 2 x Shift Total 0 6471 520 7693 Weight (kg) 49.4 49.4 49.4 49.4 49.4 49.4 49.4 49.4 MEDICATIONS Current Facility-Administered Medications Medication Dose Route Frequency acetaminophen 650 mg tab(s) (TYLENOL) 650 mg ORAL q 4 H PRN oxyCODONE IR 2.5 mg tab(s) (ROXICODONE) 2.5 mg ORAL q 6 H PRN amLODIPine 2.5 mg tab(s) (NORVASC) 2.5 mg ORAL DAILY labetalol 5 mg injection syringe (NORMODYNE) 5 mg INTRAVENOUS q 2 H PRN hydrALAZINE 10 mg injection (APRESOLINE) 10 mg INTRAVENOUS q 6 H PRN melatonin 9 mg tab(s) 9 mg ORAL DAILY (8 PM) polyethylene glycol 3350 17 g packet 17 g ORAL DAILY prochlorperazine 5 mg tab(s) (COMPAZINE) 5 mg ORAL q 6 H PRN metoprolol succinate ER 25 mg tab(s) (TOPROL XL) 25 mg ORAL DAILY NaCl 0.9% iv flush bag 20 mL INTRAVENOUS PRN NaCl 0.9% iv infusion 75 mL/hr INTRAVENOUS CONTINUOUS potassium chloride 20-40 mEq oral powder (KLOR-CON) 20-40 mEq ORAL/FEEDING TUBE PRN Or potassium chloride iv piggyback 20 mEq/100 mL 20 mEq INTRAVENOUS PRN sodium phosphate 30 mmol in D5W 250 mL 30 mmol INTRAVENOUS PRN(NO DISPENSE) Or sodium phosphate 45 mmol in D5W 250 mL 45 mmol INTRAVENOUS PRN(NO DISPENSE) magnesium sulfate iv piggyback in sterile water 2 g 50 mL 2 g INTRAVENOUS PRN calcium gluconate iv piggyback 2 g in NaCl (iso-osmotic) 100 mL 2 g INTRAVENOUS PRN(NO DISPENSE) ondansetron 4 mg tab(s) (ZOFRAN) 4 mg ORAL q 6 H PRN Or ondansetron (PF) 4 mg injection (ZOFRAN) 4 mg INTRAVENOUS q 6 H PRN senna-docusate 8.6-50 mg 1 tablet (SENNA-S) 1 tablet ORAL BID NaCl 0.9% iv flush bag 20 mL INTRAVENOUS PRN Labs: Recent Labs 09/10/25 0343 09/09/25 0236 09/08/25 0413 09/07/25 2233 09/07/253 NA 137 137 138 -- 138 K 4.2 4.3 4.2 -- 3.8 CHLOR 103 101 104 -- 103 CO2 25 20* 23 -- 24 BUN 11 16 19 -- 21 CREAT 0.88 0.86 0.86 -- 0.81 GLUC 95 122* 96 -- 89 ANION 9 16* 11 -- 11 CA 8.4* 8.7 8.8 -- 9.2 MG 2.2 2.2 2.3 < > -- P 3.3 4.9* 4.1 < > -- ALB -- -- -- -- 4.4 AST -- -- -- -- 29 ALT -- -- -- -- 17 ALKPHOS -- -- -- -- 77 TBILI -- -- -- -- 0.4 WBC 8.47 12.34* 7.04 -- 7.99 HB 10.1* 12.0 11.8 -- 12.5 HCT 30.7* 35.8* 35.4* -- 37.6 PLT 229 272 263 -- 258 INR -- -- 1.0 -- 1.0 < > = values in this interval not displayed. Exam: GENERAL: Awake and alert; NAD; cooperative; pleasant NEURO: Orientedx3; speech clear and fluent; GREY; no arm drift STRENGTH: 5/5 throughout HEENT: Incision c/d/I with dressing intact. Normocephalic; atraumatic; perrl/eomi; no facial droop LUNGS: Unlabored breathing CARDIAC: Rate and rhythm as above ABDOMEN: Soft, non-tender, non-distended EXTREMITIES: No deformities, No edema SKIN: Skin color normal; Temperature normal; no rashes or lesions ASSESSMENT AND PLAN: Active Hospital Problems Diagnosis Date Noted Subdural hematoma (HCC) 09/07/2025 Fall 09/08/2025 Sacral fracture, closed (HCC) 09/08/2025 84 year old female with hx of HTN, HLD and remote roscoe and hysterectomy who presents after fall on treadmill. CT imaging demonstrating bilateral subdural hematoma. POD#2 bilateral yenni holes for evacuation of subdural hematoma 09/09: NIL for MMA embo -neuro as above-intact -neuro checks Q4htrs -CT head this am reviewed with Dr. Bui, some acute blood noted in left surgical bed, repeat CT head in am -regular diet -prn oxy and morphine for pain -PT/OT eval and TX -care management following -SBP <160 -please mobilize -DVT PPx: hold chemo ppx given acute blood in CTH this am -ok for RNF from NSGY perspective -Trauma primary -discussed with Dr. Bui Parts of this note may have been copied from one of my previous notes (more content not included)... Normal [facility] CT BRAIN WO IVCONon 09-10-20 CT BRAIN WO IVCON * * *Final Report* * * DATE OF EXAM: Sep 10 2025 7:23AM [facility] 0504 - CT BRAIN WO IVCON / PROCEDURE REASON: SDH follow up * * * * Physician Interpretation * * * * EXAMINATION: CT BRAIN WO IVCON CLINICAL HISTORY: SDH follow up TECHNIQUE: Serial axial images without IV contrast were obtained from the vertex to the foramen magnum. MQ: [id number] CT Radiation dose: Integrated Dose-Length Product (DLP) for this visit = 733 mGy*cm CT Dose Reduction Employed: Iterative recon COMPARISON: CT brain 09/08/2025 RESULT: Localizer images: No additional findings. Post-operative change: Redemonstrated bifrontal yenni holes for bilateral subdural hematoma evacuations. Skin joann in place. Volume of pneumocephalus mildly decreased from 09/08/2025. Acute change: No evidence of an acute infarct. Hemorrhage: New small volume high attenuation blood product along the left frontal convexity. The remaining extra axial fluid along the left cerebral convexity is overall increased in attenuation and mildly increased in volume, but not significantly changed maximum thickness measuring up to 7 mm thick along the parietal convexity. Low attenuation extra-axial fluid along the right cerebral convexity is overall increased in volume, though fills space previously occupied by air, measuring up to 12 mm thick in coronal plane which is unchanged from prior. Similar degree of mass effect associated with the bilateral extra-axial collections with hemispheric sulcal effacement. There has been degree of parenchymal reexpansion concordant with mild decrease in volume of pneumocephalus. No midline shift. The basal cisterns are patent. ECASS hemorrhagic transformation score: Not Applicable Mass Lesion / Mass Effect: There is no evidence of an intracranial mass. Mass effect as above. Chronic change: Scattered patchy foci of low attenuation are present within the supratentorial white matter, a nonspecific finding that most commonly represents mild small vessel disease. 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 Parenchyma: There is no significant volume loss. Ventricles: The ventricles are within normal limits of size and configuration for age. Paranasal sinuses and skull base: The visualized paranasal sinuses are grossly clear. The skull base and imaged soft tissues are unremarkable. IMPRESSION: Compared to 09/08/2025, findings of acute interval bleed in the left-sided extra-axial collection as described. Bilateral extra-axial fluid is overall increased in volume from prior with persistent but mildly decreased pneumocephalus. Similar to mildly decreased bihemispheric mass effect with degree of parenchymal reexpansion. No midline shift. COMMUNICATION: Communicated with Sherman Beth MD on 09/10/2025 8:08 AM via verbal communication. Threat Monitoring Analyst: OSBALDO Transcribe Date/Time: Sep 10 2025 7:53A Dictated by : ALEYDA PHILIP MD This examination was interpreted and the report reviewed and electronically signed by: ALEYDA PHILIP MD on Sep 10 2025 8:20AM EST [id number] Normal [facility] Calcium.ionized [Moles/Vol]o n 09-10-2025 Calcium.ionized (BldV) [Mass/Vol] 1.12 mmol/L Normal 1.08-1.30 [facility] Comment on above: Order Comment: Specgiovanny barger Type: BLOOD SPECIMENOrdering Facility: [facility] Address: [address] [place] [address] Performed By: #### 1 995-0 ####[facility] LABORATORYCLIA [id number] [place] [address] [place] Calcium.ionized adjusted to pH 7.4 (Bld) [Moles/Vol] 1.11 mmol/L Normal 1.08-1.30 [facility] Comment on above: Order Comment: Obie barger Type: BLOOD SPECIMENOrdering Facility: [facility] Address: [address] [place] [address] Performed By: #### 1 995-0 ####[facility] LABORATORYCLIA [id number] [place] [address] [place] Magnesium SerPl-mCncon 09-10 Magnesium [Mass/Vol] 2.2 mg/dL Normal 1.7-2.3 [facility] Comment on above: Order Comment: Speci men Type: BLOOD SPECIMENOrdering Facility: [facility] Address: [address] [place], [place] [address] Performed By: #### 1 9123-9, 2777-1, 98788-5 ####[facility] LABORATORYCLIA [id number] [place] [id number] [place] NURSING PROGon 09-10-2025 NURSING PROG HNO ID: [id number] Author: JEANNIE SRIVASTAVA RN Service: Family Practice Author Type: Registered Nurse Type: Nursing Progress Note Filed: 09/10/2025 13:42 Note Text: ICU team rounded, informed of patient's confusions on events. Informed that she is answering appropriate AANDO questions. 1245 Another ICU team rounded on patient. Informed them as well concerning confusions on events. No new orders 1315 Report called to 52A RN. Called family and informed them of inpatient room #5207 Normal [facility] Phosphate SerPl-mCncon 09-10 Phosphate [Mass/Vol] 3.3 mg/dL Normal 2.7-4.8 [facility] Comment on above: Order Comment: Speci men Type: BLOOD SPECIMENOrdering Facility: [facility] Address: [address] [place] [address] Performed By: #### 1 9123-9, 2777-1, 95027-1 ####[facility] LABORATORYIA [id number] [address] [place] THERAPY NTon 09-10-2025 THERAPY NT HNO ID: [id number] Author: SCOTTIE BABIN OTR/Kayla Service: Occupational Therapy Author Type: Occupational Therapist Type: Therapy (PT/OT/Speech/Resp) Filed: 09/10/2025 15:39 Note Text: Occupational Therapy Evaluation Summary SERVICE DATE: 09/10/2025 SERVICE TIME: 1405 to 1435 ROOM: [id number] OT 6 Clicks Score: 17 DISCHARGE RECOMMENDATIONS Acute Rehab Recommended Discharge Disposition Comments: if patient chooses to go home, she will require increased assistance/supervision at home with home therapy vs outpatient. Recommended Discharge Disposition Due to: Patient requires active, intensive rehabilitation by multiple therapy disciplines. Anticipate the patient will tolerate 3 hours of therapy per day., ADL impairment, Cognitive deficits new/worsened ASSESSMENT Response to Therapy Interventions: Good Participation in Activities PRECAUTIONS Fall Risk, Bed/Chair Alarm CURRENT HOSPITAL COURSE Recent fall x2, found to have S5 fx and sent home. Family brought pt back in for worsening gait instability, AMS. Found to have bilateral SDH. 09/08 yenni hole x2, hematoma evacuation. 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 Baseline Cognition: Oriented to self, Oriented to place, Oriented to time, Oriented to situation SUBJECTIVE agreeable to session COGNITION Responsiveness: Alert Follows Commands: 2-step Commands Memory Deficits: Short Term Executive Function Deficits: Safety Awareness SLUMS Total Score ( /30): 18 (09/10/25) Administered the SLUMS examination, a screening tool for mild cognitive impairment and dementia. Pt scored with no deficits in attention/recall/orien tation (Q1-3), mod deficits in delayed recall with interference (Q 4AND7), max deficits in numeric calculation and registration (Q5), mod deficits short term memory (Q 6), mod deficits backwards digit recall (Q8), no deficits visual spatial (Q9), no deficits in visual spatial/ executive function (Q10), mod deficits in executive function/auditory comprehension/extrapol ation (Q11). Pt scores 18 indicating significant cognitive impairment. THERAPY DIAGNOSIS Reduced mobility-other, Decreased activities of daily living (ADL), Muscle Weakness (generalized), Unsteadiness on feet, General symptoms and signs-other, Signs and Symptoms Involving Cognitive Functions and Awareness TREATMENT INTERVENTIONS Evaluation, Cognitive Training per First 15 Minutes (08029) Timed Code Treatment (minutes): 15 Skilled Treatment Time (minutes): 30 $ Evaluation - Moderate (45955) Billed Units: 1 unit Cognitive Training First 15 Minutes (84080) : 15 $ Cognitive Training First 15 Minutes (79608) Billed Units: 1 unit Administered SLUMS. TRAINING AND EDUCATION PROVIDED Bed Mobility, Benefits of In-Hospital Mobility, Cognitive Skills, Cognitive Stimulation Activities, Command Following, Disease Specific Education, Energy Conservation, Functional Mobility Involving ADLs, Role of Occupational Therapy, Safety/Judgment, Standing Balance to Improve [place] with ADLs/Self-Care, Transfer - Sit to Stand, Transfer - Toilet/Commode, Toileting THERAPEUTIC SKILLS USED Activity Dosing, Cues for Sequencing/Proper Technique for Activity, Cuing Tactile, Cuing Verbal, Cuing Visual, Physical Assist FUNCTIONAL STATUS Activities of Daily Living Assist Level Additional Information Feeding Set Up Grooming Stand By Assistance Bathing Upper Body Minimal Assistance Bathing Lower Body Moderate Assistance Dressing Upper Body Minimal Assistance Dressing Lower Body Moderate Assistance Toileting Contact Guard Assistance Mobility Assist Level Additional Information Bed Mobility Supine To Sit: Stand By Assistance Sit To Supine: Stand By Assistance Sit to Stand Contact Guard Assistance Stand to Sit Contact Guard Assistance Bed to Chair Toilet/Commode Contact Guard Assistance Shower Functional Mobility Contact Guard Assistance, Additional Information Functional Mobility Device: Wheeled Walker functional mobility to bathroom and back- unsteady on feet, high fall risk. STRENGTH Right Upper Extremity Strength Comments: 4-/5 Left Upper Extremity Strength Comments: 4-/5 BALANCE Static Standing Balance: Fair Dynamic Standing Balance: Fair GOALS Grooming with: Independent Upper Body Bathing with: Independent Upper Body Dressing with: Independent Lower Body Bathing with: Supervision Lower Body Dressing with: Supervision Toilet Hygiene with: Supervision Chair Transfer with: Supervision Toilet Transfer with: Supervision (more content not included)... Normal [facility] THERAPY NT HNO ID: [id number] Author: YVETTE POSADAS, PT Service: Physical Therapy Author Type: Physical Therapist Type: Therapy (PT/OT/Speech/Resp) Filed: 09/10/2025 13:30 Note Text: Physical Therapy Evaluation Summary SERVICE DATE: 09/10/2025 SERVICE TIME: 1116 to 1140 ROOM: [place] [address] PT 6 Clicks Score: 17 DISCHARGE RECOMMENDATIONS Acute Rehab Recommended Discharge Disposition Comments: Pt previously independent, now well below baseline after head injury and brain bleed. At increased risk for further falls. Good family support from and daughters. Requires intensive PT services to maximize neurologic and functional recovery. Able to tolerate 3h/day 5d/wk combined therapies at d/c. Recommended Discharge Disposition Due to: Patient requires active, intensive rehabilitation by multiple therapy disciplines. Anticipate the patient will tolerate 3 hours of therapy per day., Patient requires daily (5x/week) skilled therapy at next level of care., Balance deficits, Ataxia, Requires multiple therapy disciplines, Functional status decline ASSESSMENT Response to Therapy Interventions: Good Participation in Activities, Cognitive Deficits Pt is below her reported baseline. She reports prior to admit was fully independent without assistive devices. Today she demonstrates some confusion and multiple losses of balance when ambulating, requiring overall min A. Demonstrates equal strength on exam but with path deviation and variable foot placement with ambulation. Tends to do worse when talking, distracted, or turning her head. Concern for future falls based on current performance. Will benefit from ongoing PT services for functional improvement. PRECAUTIONS Fall Risk, Bed/Chair Alarm CURRENT HOSPITAL COURSE Recent fall x2, found to have S5 fx and sent home. Family brought pt back in for worsening gait instability, AMS. Found to have bilateral SDH. 09/08 yenni hole x2, hematoma evacuation. 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 SUBJECTIVE Pt pleasant and agreeable to PT. THERAPY DIAGNOSIS Reduced mobility-other TREATMENT INTERVENTIONS Evaluation, Gait Training (22143) $ Evaluation-Moderate (22950) Billed Units: 1 unit Gait Training (84229) Treatment Minutes: 8 $ Gait Training (00687) Billed Units: 1 unit Timed Code Treatment (minutes): 8 Skilled Treatment Time (minutes): 24 TRAINING AND EDUCATION PROVIDED Anatomy and Impact on Deficits, Bed Mobility, Benefits of In-Hospital Mobility, Discharge Planning, Expected Functional Level, Gait Pattern, Reduction of Deviations, Role of Physical Therapy, Transfers, Standing Balance THERAPEUTIC SKILLS USED Cues for Sequencing/Proper Technique for Activity, Cuing Tactile, Cuing Verbal, Movement Facilitation, Muscle Activation Facilitation, Physical Assist FUNCTIONAL STATUS Bed Mobility Transfers Sit To Stand: Minimal Assistance Stand To Sit: Minimal Assistance Bed to Chair Gait Minimal Assistance, Additional Information demonstrates multiple losses of balance, requires assistance to recover, delayed balance reaction; cues to slow down, keep eyes forward, smaller steps; tends to get distracted and loses balance when turning her head quickly or talking Gait Device: None General Deviations/Observation s: Aga decreased, Step length decreased, Lateral sway increased, Loss of Balance Gait Distance (feet): intervals of 30-40 ft Stairs RANGE OF MOTION WFL STRENGTH Right Lower Extremity Strength Comments: 4+/5 Left Lower Extremity Strength Comments: 4+/5 BALANCE Static Standing Balance: Fair Dynamic Standing Balance: Fair GOALS Able to Perform HEP with: Independent Transfer Supine to/from Sit with: Supervision Transfer Sit to/from Stand with: Stand By Assistance Ambulate with: Stand By Assistance Distance: 100 Device: Cane Ambulate Up and Down Steps with: Stand By Assistance Number of Steps: 4 Device: Rail Goal: score >9 on Modified 4 Item DGI Rehab Potential: Good Good Rehab Potential Due To: Current objective clinical presentation ACUTE CARE TREATMENT PLAN PT Frequency: 4 Times Per Week (2-4) Treatment Interventions: Education, Self Care / Home Management, Strengthening, Functional Mobility Training, Balance Training, Neuromuscular Re-education, Cognitive Training SIGNATURE: Yvette Posadas PT PATIENT NAME: Sharon Love DATE: September 10, 2025 TIME: 1:29 PM Normal [facility] ANES POSTPROC EVALon 025 ANES POSTPROC EVAL HNO ID: [id number] Author: ALEYDA LIM MD Service: Anesthesiology Author Type: Physician Type: Anesthesia Postprocedure Evaluation Filed: 09/09/2025 16:29 Note Text: POST ANESTHESIA EVALUATION NOTE : 1940 Procedure Summary Date: 09/09/25 [place] / [place] Anesthesia Start: 1216 Anesthesia Stop: 1441 Procedure: PERCUTANEOUS TRANSCATHETER PERMANENT OCCLUSION OR EMBOLIZATION ANY METHOD NON-CENTRAL NERVOUS SYSTEM,HEAD/NECK Diagnosis: Subdural hematoma (HCC) (Subdural hematoma (HCC) [S06.5XAA]) Surgeons: Bettye Knowles MD Responsible Provider: Aleyda Lim MD Anesthesia Type: general ASA Status: 4 Anesthesia Type: general Airway Type: ETT Last Vitals Vitals Value Taken Time BP 131/72 09/09/25 16:15 Temp 36.2 ?C (97.2 ?F) 09/09/25 14:35 Pulse 63 09/09/25 16:28 Resp 13 09/09/25 16:28 SpO2 99 % 09/09/25 16:28 Vitals shown include unfiled device data. Post Anesthesia Patient Status Anticipated Disposition: ICU planned admission. Neurological Status: aware and responsive. Pulmonary Status: breathing comfortably on room air Airway Control: returned to baseline unsupported. Cardiovascular Status: stable. Pain Management: clinically adequate Postoperative Hydration: acceptable. Intraoperative Events: no significant anesthesia events Post Operative Nausea/Vomiting Status: no significant post operative nausea or vomiting Recommendation: further care per PACU/ICU/floor team. Anesthesia Observations No Documentation SIGNATURE: Aleyda Lim MD PATIENT NAME: Sharon Love DATE: September 09, 2025 TIME: 4:29 PM CSN: [id number] Normal [facility] ANES PRE-OPon 09-09-2025 ANES PRE-OP HNO ID: [id number] Author: ALEYDA LIM MD Service: Anesthesiology Author Type: Physician Type: Anesthesia Preprocedure Evaluation Filed: 09/09/2025 12:48 Note Text: ANESTHESIOLOGY DAY OF SURGERY NOTE : 1940 Procedure Information Date/Time: 09/09/25 1113 Procedure: PERCUTANEOUS TRANSCATHETER PERMANENT OCCLUSION OR EMBOLIZATION ANY METHOD NON-CENTRAL NERVOUS SYSTEM,HEAD/NECK [place] Surgeons: Bettye Knowles MD Estimated body mass index is 22.78 kg/m? as calculated from the following: Height as of this encounter: 147.3 cm (4' 10"). Weight as of this encounter: 49.4 kg (109 lb). Most recent hematocrit and potassium results: Hematocrit 35.8 09/09/2025 Potassium 4.3 09/09/2025 Relevant Problems No relevant active problems I - PHYSICAL EVALUATION AIRWAY Patient intubated: No. Tracheostomy tube not present Mallampati: III. TM distance: >3 FB. Neck ROM: limited extension. Mouth openin FB. Short neck: no. Thick neck: no DENTAL Dental findings: chipped. Additional exam findings: no II - ANESTHESIA PLAN ASA Score: 4 Anesthetic Plan: general Airway type: ETT NPO Status: adequate Monitoring Plan Monitoring plan: standard ASA. Post Procedure Analgesic Plan Postoperative analgesic plan: parenteral or oral opioids and multimodal analgesia. Informed Consent Anesthetic risks, benefits, alternatives, personnel and consent discussed: yes. Patient / Responsible Alliance Party agrees to proceed: yes Patient / Surrogate agrees to blood products: Yes DNR status reviewed with patient and/or family prior to surgery. patient elects to suspend DNR status in the perioperative setting (Full Code). Significant changes in the patient condition since the History and Physical, not otherwise documented in primary service progress note: no. Vitals Value Taken Time BP 151/72 09/09/25 12:01 Pulse 71 09/09/25 12:03 Resp 16 09/09/25 12:03 Temp SpO2 99 % 09/09/25 12:03 Vitals shown include unfiled device data. Facility-Administered Medications as of 09/09/2025 Medication Dose Route Frequency acetaminophen 650 mg tab(s) (TYLENOL) 650 mg ORAL q 4 H PRN oxyCODONE IR 2.5 mg tab(s) (ROXICODONE) 2.5 mg ORAL q 6 H PRN amLODIPine 2.5 mg tab(s) (NORVASC) 2.5 mg ORAL DAILY labetalol 5 mg injection syringe (NORMODYNE) 5 mg INTRAVENOUS q 2 H PRN hydrALAZINE 10 mg injection (APRESOLINE) 10 mg INTRAVENOUS q 6 H PRN melatonin 9 mg tab(s) 9 mg ORAL DAILY (8 PM) [COMPLETED] haloperidol lactate 1 mg short-acting injection (HALDOL) 1 mg INTRAVENOUS PRN ceFAZolin iv piggyback 2 g in D5W (iso-osmotic) 100 mL (ANCEF) 2 g INTRAVENOUS q 8 HR polyethylene glycol 3350 17 g packet 17 g ORAL DAILY prochlorperazine 5 mg tab(s) (COMPAZINE) 5 mg ORAL q 6 H PRN metoprolol succinate ER 25 mg tab(s) (TOPROL XL) 25 mg ORAL DAILY NaCl 0.9% iv flush bag 20 mL INTRAVENOUS PRN NaCl 0.9% iv infusion 75 mL/hr INTRAVENOUS CONTINUOUS potassium chloride 20-40 mEq oral powder (KLOR-CON) 20-40 mEq ORAL/FEEDING TUBE PRN Or potassium chloride iv piggyback 20 mEq/100 mL 20 mEq INTRAVENOUS PRN sodium phosphate 30 mmol in D5W 250 mL 30 mmol INTRAVENOUS PRN(NO DISPENSE) Or sodium phosphate 45 mmol in D5W 250 mL 45 mmol INTRAVENOUS PRN(NO DISPENSE) magnesium sulfate iv piggyback in sterile water 2 g 50 mL 2 g INTRAVENOUS PRN calcium gluconate iv piggyback 2 g in NaCl (iso-osmotic) 100 mL 2 g INTRAVENOUS PRN(NO DISPENSE) ondansetron 4 mg tab(s) (ZOFRAN) 4 mg ORAL q 6 H PRN Or ondansetron (PF) 4 mg injection (ZOFRAN) 4 mg INTRAVENOUS q 6 H PRN senna-docusate 8.6-50 mg 1 tablet (SENNA-S) 1 tablet ORAL BID NaCl 0.9% iv flush bag 20 mL INTRAVENOUS PRN [COMPLETED] acetaminophen 1,000 mg tab(s) (TYLENOL) 1,000 mg ORAL ONCE [COMPLETED] fentaNYL 50 mcg/mL 12.5 mcg injection (SUBLIMAZE) 12.5 mcg INTRAVENOUS ONCE Outpatient Medications as of 09/09/2025 Medication Sig ALESSIA ROOT EXTRACT PO Take 1 dose by mouth once daily. phytosterol/pantethine (CHOLESTOFF COMPLETE PO) Take 2.5 mg by mouth two times a day. ascorbic acid/collagen hydr (COLLAGEN SKIN RENEWAL PO) Take 1,000 mg by mouth two times a day. coffee xt/phosphatidyl serine (NEURIVA ORIGINAL PO) Take 1 dose by mouth once daily. niacin 100 mg cap Take 180 mg by mouth once daily. aspirin 81 mg chewable tablet Take 81 mg by mouth once daily. losartan (COZAAR) 100 mg tablet Take 100 mg by mouth once daily. Takes at night MULTIVIT-MINERALS/FERR OUS FUM (MULTI VITAMIN ORAL) Take by mouth. vitamin e 1,000 unit capsule Take 1,000 Units by mouth once daily. 670mg daily CYANOCOBALAMIN, VITAMIN B-12, (VITAMIN B12 ORAL) Take by mouth. CALCIUM CARBONATE/VITAMIN D3 (CALCIUM + D ORAL) Take by mouth. Glucosamine Sulfate (GLUCOSAMINE) 500 mg tab Take 2 tablets by mouth two times a day. Total of 1000mg MEDICATION, NON-DATABASE Take 1 each by mouth once daily. Vinia 1 dose daily amLODIPine (NORVASC) 2.5 mg ta (more content not included)... Normal [facility] BRIEF OP NOTon 09-09-2025 BRIEF OP NOT HNO ID: [id number] Author: BETTYE KNOWLES MD Service: Neuroendovascular Intervention Author Type: Physician Type: Brief Op Note Filed: 09/09/2025 14:14 Note Text: BRIEF OP/PROCEDURE NOTE NEURO INTERVENTIONAL PROCEDURE DATE: September 09, 2025 LOG ID: [id number] Surgery/Procedure Date: 09/09/2025 Incision/Procedure Start Time: 12:52 PM Incision Close/Procedure End Time: 2:03 PM Anesthesia: General PRIMARY PROCEDURALIST: Bettye Knowles MD CASE STATUS: Inpatient/Emergent PROCEDURE: Middle Meningeal Artery Embolization Indications: 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 ESTIMATED BLOOD LOSS: 50 ml COMPLICATIONS: None RADIATION DOSE: Exceeded 5 Gy - No SPECIMENS: Not Applicable SIGNATURE: Bettye Knowles MD PATIENT NAME: Sharon Love DATE: September 09, 2025 TIME: 2:13 PM Normal [facility] Basic metabolic 2000 panelon 09-09-2025 Anion gap [Moles/Vol] 16 mmol/L High 8-15 [facility] Comment on above: Order Comment: Speci men Type: BLOOD SPECIMENOrdering Facility: [facility] Address: [address] [place] [address] Performed By: #### 1 9123-9, 2777-1, 58227-8 ####[facility] LABORATORYCLIA [id number] [place] [address] [place] Calcium [Mass/Vol] 8.7 mg/dL Normal 8.5-10.2 [facility] Comment on above: Order Comment: Speci men Type: BLOOD SPECIMENOrdering Facility: [facility] Address: [address] [place] [address] Performed By: #### 1 9123-9, 2777-1, 66489-5 ####[facility] LABORATORYCLIA [id number] [place] [address] [place] Chloride [Moles/Vol] 101 mmol/L Normal 98-107 [facility] Comment on above: Order Comment: Speci men Type: BLOOD SPECIMENOrdering Facility: [facility] Address: [address] [place] [id number] Performed By: #### 1 9123-9, 2777-1, 39634-4 ####[facility]ITAL[facility] [id number] [place] [address] [place] [facility] CO2 [Moles/Vol] 20 mmol/L Low 22-30 [facility] Comment on above: Order Comment: Speci men Type: BLOOD SPECIMENOrdering Facility: [facility] Address: [address] [place] [address] Performed By: #### 1 9123-9, 27705-27, 72299-3 ####[facility]ITALCL[facility] [id number] [address] STATES OF [facility] Creatinine [Mass/Vol] 0.86 mg/dL Normal 0.58-0.96 [facility] Comment on above: Order Comment: Speci men Type: BLOOD SPECIMENOrdering Facility: [facility] Address: [address] [place] [address] Performed By: #### 1 9123-9, 27705-27, 26377-8 ####[facility]ITALCL[facility] [id number] [address] [place] OF [facility] eGFRcr SerPlBld CKD-EPI 2020 68 mL/min/1.73m??? Normal >=60 [facility] Comment on above: Order Comment: Speci men Type: BLOOD SPECIMENOrdering Facility: [facility] Address: [address] [place] [address] Result Comment: Isabelle mated Glomerular Filtration Rate (eGFR) is calculated using the 2020 CKD-EPI creatinine equation. This equation utilizes serum creatinine, sex, and age as parameters. The creatinine assay has traceable calibration to isotope dilution-mass spectrometry. Refer to KDIGO guidelines for clinical interpretation. In patients with unstable renal function, e.g. those with acute kidney injury, the eGFR may not accurately reflect actual GFR. Performed By: #### 1 9123-9, 2777-1, 24501-0 ####[facility] LABORATORYCLIA [id number] [place] [id number] [place] Glucose [Mass/Vol] 122 mg/dL High 74-99 [facility] Comment on above: Order Comment: Speci men Type: BLOOD SPECIMENOrdering Facility: [facility] Address: [address] [place] [address] Result Comment: The [place] Diabetes Association (ADA) provides guidance for cutoff values for fasting glucose and random glucose. The ADA defines fasting as no caloric intake for at least 8 hours. Fasting plasma glucose results between 100 to 125 mg/dL indicate increased risk for diabetes (prediabetes). Fasting plasma glucose results greater than or equal to 126 mg/dL meet the criteria for diagnosis of diabetes. In the absence of unequivocal hyperglycemia, results should be confirmed by repeat testing. In a patient with classic symptoms of hyperglycemia or hyperglycemic crisis, random plasma glucose results greater than or equal to 200 mg/dL meet the criteria for diagnosis of diabetes. Reference: Standards of Medical Care in Diabetes 2016, [place] [employer] Association. Diabetes Care. 2016.39(Suppl 1). Performed By: #### 1 9123-9, 2777-1, 47277-1 ####[facility] LABORATORYCLIA [id number] [place] [address] [place] Potassium [Moles/Vol] 4.3 mmol/L Normal 3.7-5.1 [facility] Comment on above: Order Comment: Obie barger Type: BLOOD SPECIMENOrdering Facility: [facility] Address: [address] [place] [address] Performed By: #### 1 9123-9, 2777-, 02225-2 ####[facility] LABORATORYCLIA [id number] [place] [address] [place] Sodium [Moles/Vol] 137 mmol/L Normal 136-144 [facility] Comment on above: Order Comment: Dianai men Type: BLOOD SPECIMENOrdering Facility: [facility] Address: [address] [place] [address] Performed By: #### 1 9123-9, 2777-, 44923-1 ####[facility] LABORATORYCLIA [id number] [place] [address] [place] Urea nitrogen [Mass/Vol] 16 mg/dL Normal 7-21 [facility] Comment on above: Order Comment: Speci men Type: BLOOD SPECIMENOrdering Facility: [facility] Address: [address] [place] [address] Performed By: #### 1 9123-9, 2777-1, 01691-6 ####[facility] LABORATORYCLIA [id number] [address] [place] CBC panel Auto (Bld)on 09-09 Erythrocyte distribution width (RBC) [Ratio] 13.5 % Normal 11.5-15.0 [facility] Comment on above: Order Comment: Speci men Type: BLOOD SPECIMENOrdering Facility: [facility] Address: [address] [place] [address] Performed By: #### 5 8410-2 ####[facility] LABORATORYCLIA [id number] [address] [place] Hematocrit (Bld) [Volume fraction] 35.8 % Low 36.0-46.0 [facility] Comment on above: Order Comment: Speci men Type: BLOOD SPECIMENOrdering Facility: [facility] Address: [address] [place] [address] Performed By: #### 5 8410-2 ####[facility] LABORATORYCLIA [id number] [address] [place] Hemoglobin (Bld) [Mass/Vol] 12.0 g/dL Normal 11.5-15.5 [facility] Comment on above: Order Comment: Speci men Type: BLOOD SPECIMENOrdering Facility: [facility] Address: [address] [place] [address] Performed By: #### 5 8410-2 ####[facility] LABORATORYCLIA [id number] [address] [place] MCH (RBC) [Entitic mass] 31.4 pg Normal 26.0-34.0 [facility] Comment on above: Order Comment: Speci men Type: BLOOD SPECIMENOrdering Facility: [facility] Address: [address] [place] [address] Performed By: #### 5 8410-2 ####[facility] LABORATORYCLIA [id number] [address] [place] MCHC (RBC) [Mass/Vol] 33.5 g/dL Normal 30.5-36.0 [facility] Comment on above: Order Comment: Speci men Type: BLOOD SPECIMENOrdering Facility: [facility] Address: [address] [place] [address] Performed By: #### 5 8410-2 ####[facility] LABORATORYCLIA [id number] [address] [place] MCV (RBC) [Entitic vol] 93.7 fL Normal 80.0-100.0 [facility] Comment on above: Order Comment: Speci men Type: BLOOD SPECIMENOrdering Facility: [facility] Address: [address] [place] [address] Performed By: #### 5 8410-2 ####[facility] LABORATORYCLIA [id number] [address] Nucleated RBC (Bld) [#/Vol] 10*3/uL Normal <0.01 [facility] Comment on above: Order Comment: Speci men Type: BLOOD SPECIMENOrdering Facility: [facility] Address: [address] [place] [address] Performed By: #### 5 8410-2 ####[facility] LABORATORYCLIA [id number] [address] [place] Platelet mean volume (Bld) [Entitic vol] 9.1 fL Normal 9.0-12.7 [facility] Comment on above: Order Comment: Speci men Type: BLOOD SPECIMENOrdering Facility: [facility] Address: [address] [place] [address] Performed By: #### 5 8410-2 ####[facility] LABORATORYCLIA [id number] [address] [place] Platelets (Bld) [#/Vol] 272 10*3/uL Normal 150-400 [facility] Comment on above: Order Comment: Speci men Type: BLOOD SPECIMENOrdering Facility: [facility] Address: [address] [place] [address] Performed By: #### 5 8410-2 ####[facility] LABORATORYCLIA [id number] [address] RBC (Bld) [#/Vol] 3.82 10*6/uL Low 3.90-5.20 [facility] Comment on above: Order Comment: Speci men Type: BLOOD SPECIMENOrdering Facility: [facility] Address: [address] [place] [address] Performed By: #### 5 8410-2 ####[facility] LABORATORYCLIA [id number] [address] WBC (Bld) [#/Vol] 12.34 10*3/uL High 3.70-11.00 [facility] Comment on above: Order Comment: Speci men Type: BLOOD SPECIMENOrdering Facility: [facility] Address: [address] [place] [address] Performed By: #### 5 8410-2 ####[facility] LABORATORYCLIA [id number] [address] CONSULT PROGon 09-09-2025 CONSULT PROG HNO ID: [id number] Author: RIZWAN MONTAÑO APRN.COMMUTATOR TESTER Service: Neurosurgery Author Type: Nurse Practitioner Type: Consult Progress Note Filed: 09/09/2025 08:09 Note Text: Neurosurgery Progress Note SERVICE DATE: 09/09/2025 SUBJECTIVE: NAEON. Patient PACU overnight, reports poor sleep overnight. Endorses slight headache, denies dizziness, n/v or visual changes. OBJECTIVE: Vitals: Temp (24hrs), Av.2 ?C (97.1 ?F), Min:36 ?C (96.8 ?F), Max:36.3 ?C (97.3 ?F) BP 131/72 Pulse 65 Temp 36.1 ?C (97 ?F) Resp 13 Ht 147.3 cm (4' 10") Wt 49.4 kg (109 lb) SpO2 98% BMI 22.78 kg/m? O2 Therapy: Nasal Cannula IANDO: Date 09/08/25699 - 09/09/2565809/09/25699 - 09/10/25 0659 Shift 6754-1374 5780-1150 5637-2823 24 Hour Total 2471-1574 8306-2924 1644-3543 24 Hour Total INTAKE PO 120 30 150 PO 120 30 150 IV 850 1000 1850 Volume (mL) (ceFAZolin iv piggyback 2 g in D5W (iso-osmotic) 100 mL (ANCEF)) 100 100 200 Volume (mL) (NaCl 0.9% iv infusion) 535 081 2320 Volume (mL) (lactated ringers iv infusion) 300 300 Volume (mL) (NaCl 0.9% iv infusion) 300 300 Shift Total 970 1030 2000 OUTPUT Urine 250 150 400 Output ([REMOVED] External Collection Device 09/07/25 09/08/25 182) 0 0 Output ( External Collection Device 09/08/25 182 [facility]) 250 150 400 Shift Total 250 150 400 Weight (kg) 49.4 49.4 49.4 49.4 49.4 49.4 49.4 49.4 MEDICATIONS Current Facility-Administered Medications Medication Dose Route Frequency ceFAZolin iv piggyback 2 g in D5W (iso-osmotic) 100 mL (ANCEF) 2 g INTRAVENOUS q 8 HR docusate sodium 100 mg cap(s) (COLACE) 100 mg ORAL BID bisacodyl EC 10 mg tab(s) (DULCOLAX) 10 mg ORAL DAILY PRN bisacodyl 10 mg suppository (DULCOLAX) 10 mg RECTAL DAILY PRN hydrALAZINE 10 mg injection (APRESOLINE) 10 mg INTRAVENOUS q 6 H PRN labetalol 5 mg injection syringe (NORMODYNE) 5 mg INTRAVENOUS q 2 H PRN polyethylene glycol 3350 17 g packet 17 g ORAL DAILY morphine 2 mg injection 2 mg INTRAVENOUS q 2 H PRN acetaminophen 1,000 mg tab(s) (TYLENOL) 1,000 mg ORAL q 8 H famotidine 10 mg injection (PEPCID) 10 mg INTRAVENOUS BID prochlorperazine 5 mg tab(s) (COMPAZINE) 5 mg ORAL q 6 H PRN metoprolol succinate ER 25 mg tab(s) (TOPROL XL) 25 mg ORAL DAILY NaCl 0.9% iv flush bag 20 mL INTRAVENOUS PRN NaCl 0.9% iv infusion 75 mL/hr INTRAVENOUS CONTINUOUS potassium chloride 20-40 mEq oral powder (KLOR-CON) 20-40 mEq ORAL/FEEDING TUBE PRN Or potassium chloride iv piggyback 20 mEq/100 mL 20 mEq INTRAVENOUS PRN sodium phosphate 30 mmol in D5W 250 mL 30 mmol INTRAVENOUS PRN(NO DISPENSE) Or sodium phosphate 45 mmol in D5W 250 mL 45 mmol INTRAVENOUS PRN(NO DISPENSE) magnesium sulfate iv piggyback in sterile water 2 g 50 mL 2 g INTRAVENOUS PRN calcium gluconate iv piggyback 2 g in NaCl (iso-osmotic) 100 mL 2 g INTRAVENOUS PRN(NO DISPENSE) ondansetron 4 mg tab(s) (ZOFRAN) 4 mg ORAL q 6 H PRN Or ondansetron (PF) 4 mg injection (ZOFRAN) 4 mg INTRAVENOUS q 6 H PRN oxyCODONE IR 2.5-5 mg tab(s) (ROXICODONE) 2.5-5 mg ORAL q 4 H PRN senna-docusate 8.6-50 mg 1 tablet (SENNA-S) 1 tablet ORAL BID NaCl 0.9% iv flush bag 20 mL INTRAVENOUS PRN Labs: Recent Labs 09/09/25 0236 09/08/25 0413 09/07/25 2233 NA 137 138 138 K 4.3 4.2 3.8 CHLOR 101 104 103 CO2 20* 23 24 BUN 16 19 21 CREAT 0.86 0.86 0.81 GLUC 122* 96 89 ANION 16* 11 11 CA 8.7 8.8 9.2 MG 2.2 2.3 -- P 4.9* 4.1 -- ALB -- -- 4.4 AST -- -- 29 ALT -- -- 17 ALKPHOS -- -- 77 TBILI -- -- 0.4 WBC 12.34* 7.04 7.99 HB 12.0 11.8 12.5 HCT 35.8* 35.4* 37.6 PLT 272 263 258 INR -- 1.0 1.0 Exam: GENERAL: Awake and alert; NAD; cooperative; pleasant NEURO: Orientedx3; speech clear and fluent; GREY; no arm drift STRENGTH: 5/5 throughout HEENT: Incision c/d/I with intact dressing; Normocephalic; atraumatic; perrl/eomi; no facial droop LUNGS: Unlabored breathing CARDIAC: Rate and rhythm as above ABDOMEN: Soft, non-tender, non-distended EXTREMITIES: No deformities, No edema SKIN: Skin color normal; Temperature normal; no rashes or lesions ASSESSMENT AND PLAN: Active Hospital Problems Diagnosis Date Noted Subdural hematoma (HCC) 09/07/2025 Fall 09/08/2025 Sacral fracture, closed (HCC) 09/08/2025 84 year old female with hx of HTN, HLD and remote roscoe and hysterectomy who presents after fall on treadmill. CT imaging demonstrating bilateral subdural hematoma. POD#1 bilateral yenni holes for evacuation of subdural hematoma Plan: -neuro as above-intact -neuro checks Q1hr -NPO with plan for NIL this am for DCA with MMA embo -prn oxy and morphine for pain -PT/OT eval and TX -care management following -SBP <160 -please mobilize -DVT PPx: hold chemo ppx -Trauma primary Parts of this note may have been copied from one of my previous notes and remain pertinent. The documentation has been reviewed and edited as necessary to support the c (more content not included)... Normal [facility] CONSULT PROG HNO ID: [id number] Author: RAMY BLANCHARD MD Service: General Surgery Author Type: Resident Type: Consult Progress Note Filed: 09/10/2025 11:46 Note Text: Attestation signed by Ramy Blanchard MD at 09/10/2025 11:46 AM I personally saw and examined the patient on 09/09/25. I reviewed the resident's note. I agree with the resident's assessment and plan unless otherwise noted. I provided 31 minutes of critical care services which were necessary due to above specified injuries and illnesses. This patient has a high probability of sudden, clinical significant deterioration, which required the highest level of care and preparedness to intervene urgently. I managed and supervised life or organ supporting interventions that require frequent assessments. This time does not include time devoted to teaching and to any procedure I billed separately. I have personally seen and examined this patient and participated in the negron components of this encounter with the multi-disciplinary ICU team. I discussed the management of this case with the resident and reviewed/confirmed their documentation, attached or in separate note. I personally reviewed today's actual images, the associated image reports, and current labs. I supervised the ordering of additional testing, imaging, labs, and/or consultations. The patient and/or family were fully informed of the findings and plan of care. They had the opportunity to ask questions and raise any issues of concern, all of which were answered and dealt with by me to their stated satisfaction. The critical care treatment was mainly directed to address the following current issues: Active Hospital Problems Diagnosis Date Noted Subdural hematoma (HCC) 09/07/2025 Fall 09/08/2025 Sacral fracture, closed (HCC) 09/08/2025 Hypertension 09/06/2025 Hyperlipidemia 08/26/2025 Overview Note: Comment on above: intolerant of statins Management included sedation, pain control and ventilation assessment including need for ventilator, weaning and/or extubation as indicated. Management of critical care illnesses are edited above by me, including system by system plan and are not only limited to infectious disease and tailoring the antibiotic therapy, nutrition assessment and supplementation, electrolyte correction and prevention of ICU related complications using ventilator bundle, sedation holiday and assessment and removal of lines and tubes where indicated. SIGNATURE: Ramy Blanchard MD PATIENT NAME: Sharon Love DATE: September 09, 2025 INPATIENT SICU PROGRESS NOTE SERVICE DATE: 09/09/2025 SERVICE TIME: 7:48 AM Subjective Patient seen at bedside this morning, s/p hematoma evacuation. Reports she feels well, no headache, nausea, vomiting, change in vision, new numbness or tingling. Current Facility-Administered Medications Medication Dose Route Frequency metoprolol succinate ER 25 mg tab(s) (TOPROL XL) 25 mg ORAL DAILY NaCl 0.9% iv flush bag 20 mL INTRAVENOUS PRN NaCl 0.9% iv infusion 75 mL/hr INTRAVENOUS CONTINUOUS potassium chloride 20-40 mEq oral powder (KLOR-CON) 20-40 mEq ORAL/FEEDING TUBE PRN Or potassium chloride iv piggyback 20 mEq/100 mL 20 mEq INTRAVENOUS PRN sodium phosphate 30 mmol in D5W 250 mL 30 mmol INTRAVENOUS PRN(NO DISPENSE) Or sodium phosphate 45 mmol in D5W 250 mL 45 mmol INTRAVENOUS PRN(NO DISPENSE) magnesium sulfate iv piggyback in sterile water 2 g 50 mL 2 g INTRAVENOUS PRN calcium gluconate iv piggyback 2 g in NaCl (iso-osmotic) 100 mL 2 g INTRAVENOUS PRN(NO DISPENSE) ondansetron 4 mg tab(s) (ZOFRAN) 4 mg ORAL q 6 H PRN Or ondansetron (PF) 4 mg injection (ZOFRAN) 4 mg INTRAVENOUS q 6 H PRN oxyCODONE IR 2.5-5 mg tab(s) (ROXICODONE) 2.5-5 mg ORAL q 4 H PRN senna-docusate 8.6-50 mg 1 tablet (SENNA-S) 1 tablet ORAL BID NaCl 0.9% iv flush bag 20 mL INTRAVENOUS PRN ceFAZolin iv piggyback 2 g in D5W (iso-osmotic) 100 mL (ANCEF) 2 g INTRAVENOUS q 8 HR docusate sodium 100 mg cap(s) (COLACE) 100 mg ORAL BID bisacodyl EC 10 mg tab(s) (DULCOLAX) 10 mg ORAL DAILY PRN bisacodyl 10 mg suppository (DULCOLAX) 10 mg RECTAL DAILY PRN hydrALAZINE 10 mg injection (APRESOLINE) 10 mg INTRAVENOUS q 6 H PRN labetalol 5 mg injection syringe (NORMODYNE) 5 mg INTRAVENOUS q 2 H PRN polyethylene glycol 3350 17 g packet 17 g ORAL DAILY morphine 2 mg injection 2 mg INTRAVENOUS q 2 H PRN acetaminophen 1,000 mg tab(s) (TYLENOL) 1,000 mg ORAL q 8 H famotidine 10 mg injection (PEPCID) 10 mg INTRAVENOUS BID prochlorperazine 5 mg tab(s) (COMPAZINE) 5 mg ORAL q 6 H PRN Objective VITAL SIGNS BP 131/72 Pulse 65 Temp (Src) 97 (Temporal) Resp 13 Ht 4' 10" (1.47m) Wt 109 lb (49.4kg) SpO2 98% BMI 22.79 kg/(m2). O2 Therapy: Nasal Cannula, Liters (more content not included)... Normal [facility] Calcium.ionized [Moles/Vol]o n 09-09-2025 Calcium.ionized (BldV) [Mass/Vol] 1.09 mmol/L Normal 1.08-1.30 [facility] Comment on above: Order Comment: Obie barger Type: BLOOD SPECIMENOrdering Facility: [facility] Address: [address] [place] [address] Performed By: #### 1 995-0 ####[facility]ITALCLIA [id number] [address] Calcium.ionized adjusted to pH 7.4 (Bld) [Moles/Vol] 1.08 mmol/L Normal 1.08-1.30 [facility] Comment on above: Order Comment: Obie brager Type: BLOOD SPECIMENOrdering Facility: [facility] Address: [address] [place] [address] Performed By: #### 1 995-0 ####[facility] LABORATORYCLIA [id number] [address] OF [place] [facility] Magnesium [Mass/Vol] 2.2 mg/dL Normal 1.7-2.3 [facility] Comment on above: Order Comment: Obie barger Type: BLOOD SPECIMENOrdering Facility: [facility] Address: [address] [place] [address] Performed By: #### 1 9123-9, 2777-1, 10695-4 ####[facility] LABORATORYCLIA [id number] [address] [place] NIL TRANS CATH TX EMBOLIZATI ONon 09-09-2025 NIL TRANS CATH TX EMBOLIZATION * * *Final Report* * * DATE OF EXAM: Sep 09 2025 2:12PM A6A 3022 - NIL TRANS CATH TX EMBOLIZATION / PROCEDURE REASON: Subdural hematoma (HCC) [S06.5XAA] * * * * Physician Interpretation * * * * Endovascular Surgical Neuroradiology Report CLINICAL HISTORY: This patient is a 84 years-old Female who presented with 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 Diagnotic craniocervical angiogram with the intention for the bilateral middle meningeal artery was requested. PROCEDURE: 1. Ultrasound-guided right femoral artery access. 2. Diagnostic cervicocerebral angiogram. 3. Embolization of the bilateral middle meningeal artery. 4. Follow-up cerebral angiography. 5. Closure device INFORMED CONSENT: The procedural risks, benefits, alternatives, and complications were discussed with the patient and family. All questions were answered and they requested that we proceed. PRE-PROCEDURAL DIAGNOSIS: Chronic SDH POST-PROCEDURAL DIAGNOSIS: Same TIME OUT TIME: 1250 PROCEDURE START TIME: 125 PROCEDURE END TIME: 1405 ATTENDING: Bettye Knowles MD The procedure was performed by the attending without assistance. ANESTHESIA: General anesthesia was provided by anesthesiology team. Pulsed oximetry, cardiopulmonary monitoring and electrocardiography was performed throughout the procedure. ANGIOGRAPHY MATERIALS: Diagnostic catheter: 5 Fr Vertebral Catheter Tomas 2 Catheter Guidewire: 0.035 inch angled tapered Glidewire. Guide Catheter: 6 Fr Envoy Microcatheter: Phenom 21 Microwire: Synchro2 Soft 0.014" Fluoroscopic Radiation Summary: Plane A, Air Kerma: 411.4 mGy Plane B, Air Kerma: 161.9 mGy Fluoro time: 46:30 min:sec Radiation dose exceed 5 Gy: No If radiation dose exceeded 5 Gy, was counseling and instructional brochure provided:N/A Contrast (intra-arterial): 132 ml of OMNIPAQUE 300 TECHNIQUE: After elian discussion of the risks and benefits of the endovascular embolization, informed consent was obtained. The patient was brought to the angiography suite and placed in supine position. After cardiopulmonary and hemodynamic monitoring was established, AMBER was administered by the anesthesiology team. The right groin was prepped and draped in the usual standard fashion. After fluoroscopic localization of the right femoral head, the artery was visualized with ultrasound. Common femoral artery: normal and patent. The right femoral artery was found to be sufficient for transfemoral access. A permanent image of the artery was archived. Vascular access was then obtained in the artery utilizing a standard 4 Fr micropuncture set, under direct ultrasound visualization. A 6 Fr sheath was inserted and connected to heparinized saline flush. A co-axial system consisting of the [ ] guide sheath, with diagnostic catheter, in conjunction with a 0.035" angled-tapered glidewire was used to select the following vessels: Brachiocephalic vascular family: Right common carotid artery, cervical views. Right internal carotid artery, intracranial views. Standard AP and lateral views. Right external carotid artery, cranial views. Left carotid vascular family: Left common carotid artery, cervical views. Left internal carotid artery, intracranial views. Standard AP and lateral views. Left external carotid artery, cranial views. In addition, super-selective microcatheter runs with cranial views were performed in the following vessels: Right middle meningeal artery: (PRE-EMBOLIZATION): There is no evidence of ocular or intracranial supply from this vessel. Contrast blush is noted near the distal branches of the artery. Left middle meningeal artery: (PRE-EMBOLIZATION): There is no evidence of ocular or intracranial supply from this vessel. Contrast blush is noted near the distal branches of the artery. Angiographic imaging was performed at each selected vessel with views as described above. PRE-INTERVENTION FINDINGS: RIGHT COMMON CAROTID ARTERY INJECTION (cervical): DSA images of the right anterior cervical circulation demonstrate normal course and caliber of the distal common carotid artery. The bifurcation is at C4. There is no significant atherosclerosis at the bifurcation by NASCET criteria. The cervical ICA has normal course and caliber. The proximal ECA and its branches demonstrate a normal course and caliber. There is no evidence of dissection or arteriovenous shunting. RIGHT COMMON CAROTID ARTERY INJECTION (cranial): DSA images of the right anterior intracranial circulation demonstrate normal course and caliber of the petrous, cavernous and supraclinoid segments of the internal carotid artery. The ophthalmic artery origin, course and caliber are normal. There is no visualized posterior communicating artery. The anterior choroidal artery is normal. M1 segment is normal. A1 segment is atretic. MCA distribution is normal. Capillary a (more content not included)... Normal [facility] Phosphate [facility] 09-09 Phosphate [Mass/Vol] 4.9 mg/dL High 2.7-4.8 [facility] Comment on above: Order Comment: Speci men Type: BLOOD SPECIMENOrdering Facility: [facility] Address: [address] [place] [address] Performed By: #### 1 9123-9, 2777-1, 44502-1 ####[facility] LABORATORYCLIA [id number] [address] STAPHYLOCOCCUS AUREUS AND MR SA SCREEN, PCR, NASALon 09-09-2025 S. aureus and MRSA panel DYLAN+probe (Nose) Not detected Normal Not Detected [facility] Comment on above: Order Comment: Speci men Type: SWABOrdering Facility: [facility] Address: [address] [place] [address] Performed By: #### S APCR ####[facility] LABORATORYCLIA [id number] [address] OF [facility] THERAPY NTon 09-09-2025 THERAPY NT HNO ID: [id number] Author: ELIDA BOWER CCC-ZANDRA Service: Speech/Swallow Author Type: Speech Language Pathologist Type: Therapy (PT/OT/Speech/Resp) Filed: 09/09/2025 08:15 Note Text: SPEECH THERAPY MISSED VISIT SERVICE DATE: 09/09/2025 SERVICE TIME: 0814 ROOM: [place] [address] Patient not seen due to Test / Procedure: plan for NIL today. Will re-attempt speech/swallowing therapy at a later date/time. SIGNATURE: JANE Cid PATIENT NAME: Sharon Love DATE: September 09, 2025 TIME: 8:15 AM Normal [facility] 25(OH)D3 [facility] 2024 25-hydroxyvitamin D3 [Mass/Vol] 44.4 ng/mL Normal >=30.0 [facility] Comment on above: Order Comment: Speci men Type: BLOOD SPECIMENOrdering Facility: [facility] Address: [address] [place] [address] Result Comment: Clas sification of 25 [place] Vitamin D status: Deficiency: <= 20.0 ng/ml. Insufficiency: 21.0-29.0 ng/ml. Sufficiency: >= 30.0 ng/ml. Performed By: #### 1 989-3 ####[facility] LABORATORYCLIA [id number] [place] [id number] [place] ANES POSTPROC EVALon 025 ANES POSTPROC EVAL HNO ID: [id number] Author: CARTER CARBONE MD Service: Anesthesiology Author Type: Anesthesiologist Type: Anesthesia Postprocedure Evaluation Filed: 09/08/2025 16:22 Note Text: POST ANESTHESIA EVALUATION NOTE : 1940 Procedure Summary Date: 09/08/25 Room / Location: [place] / [place] Anesthesia Start: 1426 Anesthesia Stop: 1613 Procedure: YENNI HOLE(S) W/ EVAC/DRAIN HEMATOMA SUBDURAL (Bilateral: Head) Diagnosis: Bilateral subdural hematomas (HCC) (Bilateral subdural hematomas (HCC) [S06.5XAA]) Surgeons: Omer Bui MD Responsible Provider: Carter Carbone MD Anesthesia Type: general ASA Status: 3 Anesthesia Type: general Airway Type: ETT Last Vitals Vitals Value Taken Time BP 127/76 09/08/25 16:16 Temp 09/08/25 16:21 Pulse 81 09/08/25 16:21 Resp 13 09/08/25 16:21 SpO2 94 % 09/08/25 16:21 Vitals shown include unfiled device data. Post Anesthesia Patient Status Patient Evaluation: PACU. PACU/ICU Patient Condition: stable. Anticipated Disposition: ICU planned admission. Neurological Status: aware and responsive. Pulmonary Status: breathing comfortably on supplemental oxygen Airway Control: returned to baseline unsupported. Cardiovascular Status: stable. Pain Management: clinically adequate Postoperative Hydration: acceptable. Intraoperative Events: no significant anesthesia events Post Operative Nausea/Vomiting Status: no significant post operative nausea or vomiting Recommendation: continue current plan of care and further care per PACU/ICU/floor team. Anesthesia Observations No Documentation SIGNATURE: Carter Carbone MD PATIENT NAME: Sharon Love DATE: September 08, 2025 TIME: 4:21 PM CSN: [id number] [facility] ANES PRE-OPon 09-08-2025 ANES PRE-OP HNO ID: [id number] Author: CARTER CARBONE MD Service: Anesthesiology Author Type: Anesthesiologist Type: Anesthesia Preprocedure Evaluation Filed: 09/08/2025 15:11 Note Text: ANESTHESIOLOGY DAY OF SURGERY NOTE : 1940 Procedure Information Date/Time: 09/08/25 1248 Procedure: YENNI HOLE(S) W/ EVAC/DRAIN HEMATOMA SUBDURAL (Bilateral: Head) Location: [place] 01 / [place] Surgeons: Omer Bui MD Estimated body mass index is 22.78 kg/m? as calculated from the following: Height as of this encounter: 147.3 cm (4' 10"). Weight as of this encounter: 49.4 kg (109 lb). Most recent hematocrit and potassium results: Hematocrit 35.4 09/08/2025 Potassium 4.2 09/08/2025 Relevant Problems No relevant active problems I - PHYSICAL EVALUATION AIRWAY Patient intubated: No. Tracheostomy tube not present Mallampati: III. TM distance: >3 FB. Neck ROM: limited extension. Mouth openin FB. Short neck: no. Thick neck: no II - ANESTHESIA PLAN ASA Score: 3 Anesthetic Plan: general Airway type: ETT NPO Status: adequate Anesthetic plan additional comments: Pertinent h/o HTN, HLD, CAD, NSTEMI, and vertigo who presented to the ED following fall for hematoma evacuation iso SDH. Plan for GA +/- arterial line. Discussed code status with patient, plan to revert to full code perioperatively. Monitoring Plan Monitoring plan: standard ASA. Informed Consent Anesthetic risks, benefits, alternatives, personnel and consent discussed: yes. Patient / Responsible Alliance Party agrees to proceed: yes Patient / Surrogate agrees to blood products: Yes DNR status reviewed with patient and/or family prior to surgery. patient elects to suspend DNR status in the perioperative setting (Full Code). Vitals Value Taken Time BP Pulse 79 09/08/25 12:38 Resp 15 09/08/25 12:39 Temp SpO2 98 % 09/08/25 12:39 Vitals shown include unfiled device data. Facility-Administered Medications as of 09/07/2025 Medication Dose Route Frequency metoprolol succinate ER 25 mg tab(s) (TOPROL XL) 25 mg ORAL DAILY NaCl 0.9% iv flush bag 20 mL INTRAVENOUS PRN NaCl 0.9% iv infusion 75 mL/hr INTRAVENOUS CONTINUOUS potassium chloride 20-40 mEq oral powder (KLOR-CON) 20-40 mEq ORAL/FEEDING TUBE PRN Or potassium chloride iv piggyback 20 mEq/100 mL 20 mEq INTRAVENOUS PRN sodium phosphate 30 mmol in D5W 250 mL 30 mmol INTRAVENOUS PRN(NO DISPENSE) Or sodium phosphate 45 mmol in D5W 250 mL 45 mmol INTRAVENOUS PRN(NO DISPENSE) magnesium sulfate iv piggyback in sterile water 2 g 50 mL 2 g INTRAVENOUS PRN calcium gluconate iv piggyback 2 g in NaCl (iso-osmotic) 100 mL 2 g INTRAVENOUS PRN(NO DISPENSE) ondansetron 4 mg tab(s) (ZOFRAN) 4 mg ORAL q 6 H PRN Or ondansetron (PF) 4 mg injection (ZOFRAN) 4 mg INTRAVENOUS q 6 H PRN oxyCODONE IR 2.5-5 mg tab(s) (ROXICODONE) 2.5-5 mg ORAL q 4 H PRN fentaNYL 50 mcg/mL 25 mcg injection (SUBLIMAZE) 25 mcg INTRAVENOUS q 2 H PRN senna-docusate 8.6-50 mg 1 tablet (SENNA-S) 1 tablet ORAL BID NaCl 0.9% iv flush bag 20 mL INTRAVENOUS PRN [COMPLETED] acetaminophen 1,000 mg tab(s) (TYLENOL) 1,000 mg ORAL ONCE [COMPLETED] fentaNYL 50 mcg/mL 12.5 mcg injection (SUBLIMAZE) 12.5 mcg INTRAVENOUS ONCE Outpatient Medications as of 09/07/2025 Medication Sig ALESSIA ROOT EXTRACT PO Take 1 dose by mouth once daily. phytosterol/pantethine (CHOLESTOFF COMPLETE PO) Take 2.5 mg by mouth two times a day. ascorbic acid/collagen hydr (COLLAGEN SKIN RENEWAL PO) Take 1,000 mg by mouth two times a day. coffee xt/phosphatidyl serine (NEURIVA ORIGINAL PO) Take 1 dose by mouth once daily. niacin 100 mg cap Take 180 mg by mouth once daily. aspirin 81 mg chewable tablet Take 81 mg by mouth once daily. losartan (COZAAR) 100 mg tablet Take 100 mg by mouth once daily. Takes at night MULTIVIT-MINERALS/FERR OUS FUM (MULTI VITAMIN ORAL) Take by mouth. vitamin e 1,000 unit capsule Take 1,000 Units by mouth once daily. 670mg daily CYANOCOBALAMIN, VITAMIN B-12, (VITAMIN B12 ORAL) Take by mouth. CALCIUM CARBONATE/VITAMIN D3 (CALCIUM + D ORAL) Take by mouth. Glucosamine Sulfate (GLUCOSAMINE) 500 mg tab Take 2 tablets by mouth two times a day. Total of 1000mg MEDICATION, NON-DATABASE Take 1 each by mouth once daily. Vinia 1 dose daily amLODIPine (NORVASC) 2.5 mg tablet Take 2.5 mg by mouth once daily. metoprolol succinate ER (TOPROL XL) 25 mg 24 hr tablet Take 25 mg by mouth once daily. hydroCHLOROthiazide 12.5 mg tablet Take 12.5 mg by mouth once daily. nitroglycerin sublingual (NITROQUICK) 0.4 mg SL tablet Dissolve 0.4 mg under the tongue every 5 minutes as needed for chest pain. I have interviewed and examined the patient. I have reviewed the medical record and/or the pre-anesthesia evaluation, pertinent labs, and test results. This contains updated information obtained within 48 hours of Surgery/Procedure. SIGNATURE: Carter Carbone MD PATIENT NAME: Sharon Love DATE: September 08, (more content not included)... Normal [facility] Basic metabolic 2000 panelon 09-08-2025 Anion gap [Moles/Vol] 11 mmol/L Normal 8-15 [facility] Comment on above: Order Comment: Speci denita Type: BLOOD SPECIMENOrdering Facility: [facility] Address: [address] [place] [address] Performed By: #### 1 9123-9, 2777-, 51061-1 ####[facility] LABORATORYCLIA [id number] [place] [address] [place] Calcium [Mass/Vol] 8.8 mg/dL Normal 8.5-10.2 [facility] Comment on above: Order Comment: Dianai denita Type: BLOOD SPECIMENOrdering Facility: [facility] Address: [address] [place] [address] Performed By: #### 1 9123-9, 2777-1, 30012-6 ####[facility] LABORATORYCLIA [id number] [place] [address] [place] [facility] Chloride [Moles/Vol] 104 mmol/L Normal 98-107 [facility] Comment on above: Order Comment: Speci men Type: BLOOD SPECIMENOrdering Facility: [facility] Address: [address] [place] [address] Performed By: #### 1 9123-9, 2777-1, 75204-7 ####[facility] LABORATORYCLIA [id number] [address] OF [facility] CO2 [Moles/Vol] 23 mmol/L Normal 22-30 [facility] Comment on above: Order Comment: Speci men Type: BLOOD SPECIMENOrdering Facility: [facility] Address: [address] [place] [address] Performed By: #### 1 9123-9, 2777-1, 74535-3 ####[facility] LABORATORYCLIA [id number] [address] Creatinine [Mass/Vol] 0.86 mg/dL Normal 0.58-0.96 [facility] Comment on above: Order Comment: Speci men Type: BLOOD SPECIMENOrdering Facility: [facility] Address: [address] [place] [address] Performed By: #### 1 9123-9, 2777-1, 64706-5 ####[facility] LABORATORYCLIA [id number] [address] OF [facility] eGFRcr SerPlBld CKD-EPI 2020 68 mL/min/1.73m??? Normal >=60 [facility] Comment on above: Order Comment: Speci men Type: BLOOD SPECIMENOrdering Facility: [facility] Address: [address] [place] [address] Result Comment: Isabelle mated Glomerular Filtration Rate (eGFR) is calculated using the 2020 CKD-EPI creatinine equation. This equation utilizes serum creatinine, sex, and age as parameters. The creatinine assay has traceable calibration to isotope dilution-mass spectrometry. Refer to KDIGO guidelines for clinical interpretation. In patients with unstable renal function, e.g. those with acute kidney injury, the eGFR may not accurately reflect actual GFR. Performed By: #### 1 9123-9, 2777-1, 87477-4 ####[facility] LABORATORYCLIA [id number] [place] [address] [place] Glucose [Mass/Vol] 96 mg/dL Normal 74-99 [facility] Comment on above: Order Comment: Obie barger Type: BLOOD SPECIMENOrdering Facility: [facility] Address: [address] [place] [address] Result Comment: The [place] Diabetes Association (ADA) provides guidance for cutoff values for fasting glucose and random glucose. The ADA defines fasting as no caloric intake for at least 8 hours. Fasting plasma glucose results between 100 to 125 mg/dL indicate increased risk for diabetes (prediabetes). Fasting plasma glucose results greater than or equal to 126 mg/dL meet the criteria for diagnosis of diabetes. In the absence of unequivocal hyperglycemia, results should be confirmed by repeat testing. In a patient with classic symptoms of hyperglycemia or hyperglycemic crisis, random plasma glucose results greater than or equal to 200 mg/dL meet the criteria for diagnosis of diabetes. Reference: Standards of Medical Care in Diabetes 2016, [place] [employer] Association. Diabetes Care. 2016.39(Suppl 1). Performed By: #### 1 9123-9, 2777-, 37648-8 ####[facility]ITALCLIA [id number] [place] [address] [place] Potassium [Moles/Vol] 4.2 mmol/L Normal 3.7-5.1 [facility] Comment on above: Order Comment: Obie barger Type: BLOOD SPECIMENOrdering Facility: [facility] Address: [address] [place] [address] Performed By: #### 1 9123-9, 2777-1, 16518-6 ####[facility] LABORATORYIA [id number] [place] [id number] [place] Sodium [Moles/Vol] 138 mmol/L Normal 136-144 [facility] Comment on above: Order Comment: Obie barger Type: BLOOD SPECIMENOrdering Facility: [facility] Address: [address] [place] [id number] Performed By: #### 1 9123-9, 2777-1, 57896-8 ####[facility] LABORATORYCLIA [id number] [place] [id number] [place] OF [facility] Urea nitrogen [Mass/Vol] 19 mg/dL Normal 7-21 [facility] Comment on above: Order Comment: Speci men Type: BLOOD SPECIMENOrdering Facility: [facility] Address: [address] [place] [address] Performed By: #### 1 9123-9, 2777-1, 73668-6 ####[facility] LABORATORYCLIA [id number] [address] STATES OF [facility] CBC panel Auto (Bld)on 09-08 Erythrocyte distribution width (RBC) [Ratio] 13.5 % Normal 11.5-15.0 [facility] Comment on above: Order Comment: Speci men Type: BLOOD SPECIMENOrdering Facility: [facility] Address: [address] [place] [address] Performed By: #### 5 8410-2 ####[facility] LABORATORYCLIA [id number] [address] [place] Hematocrit (Bld) [Volume fraction] 35.4 % Low 36.0-46.0 [facility] Comment on above: Order Comment: Speci men Type: BLOOD SPECIMENOrdering Facility: [facility] Address: [address] [place] [address] Performed By: #### 5 8410-2 ####[facility] LABORATORYCLIA [id number] [address] [place] Hemoglobin (Bld) [Mass/Vol] 11.8 g/dL Normal 11.5-15.5 [facility] Comment on above: Order Comment: Speci men Type: BLOOD SPECIMENOrdering Facility: [facility] Address: [address] [place] [address] Performed By: #### 5 8410-2 ####[facility] LABORATORYCLIA [id number] [address] [place] MCH (RBC) [Entitic mass] 31.1 pg Normal 26.0-34.0 [facility] Comment on above: Order Comment: Speci men Type: BLOOD SPECIMENOrdering Facility: [facility] Address: [address] [place] [address] Performed By: #### 5 8410-2 ####[facility] LABORATORYCLIA [id number] [address] [place] MCHC (RBC) [Mass/Vol] 33.3 g/dL Normal 30.5-36.0 [facility] Comment on above: Order Comment: Speci men Type: BLOOD SPECIMENOrdering Facility: [facility] Address: [address] [place] [address] Performed By: #### 5 8410-2 ####[facility] LABORATORYCLIA [id number] [address] [place] MCV (RBC) [Entitic vol] 93.2 fL Normal 80.0-100.0 [facility] Comment on above: Order Comment: Speci men Type: BLOOD SPECIMENOrdering Facility: [facility] Address: [address] [place] [address] Performed By: #### 5 8410-2 ####[facility] LABORATORYCLIA [id number] [address] [place] Nucleated RBC (Bld) [#/Vol] 10*3/uL Normal <0.01 [facility] Comment on above: Order Comment: Speci men Type: BLOOD SPECIMENOrdering Facility: [facility] Address: [address] [place] [address] Performed By: #### 5 8410-2 ####[facility] LABORATORYCLIA [id number] [address] [place] Platelet mean volume (Bld) [Entitic vol] 9.1 fL Normal 9.0-12.7 [facility] Comment on above: Order Comment: Speci men Type: BLOOD SPECIMENOrdering Facility: [facility] Address: [address] [place] [address] Performed By: #### 5 8410-2 ####[facility] LABORATORYCLIA [id number] [place] [address] [place] Platelets (Bld) [#/Vol] 263 10*3/uL Normal 150-400 [facility] Comment on above: Order Comment: Speci men Type: BLOOD SPECIMENOrdering Facility: [facility] Address: [address] [place] [address] Performed By: #### 5 8410-2 ####[facility] LABORATORYCLIA [id number] [place] [address] [place] RBC (Bld) [#/Vol] 3.80 10*6/uL Low 3.90-5.20 [facility] Comment on above: Order Comment: Speci men Type: BLOOD SPECIMENOrdering Facility: [facility] Address: [address] [place] [address] Performed By: #### 5 8410-2 ####[facility] LABORATORYCLIA [id number] [address] WBC (Bld) [#/Vol] 7.04 10*3/uL Normal 3.70-11.00 [facility] Comment on above: Order Comment: Speci men Type: BLOOD SPECIMENOrdering Facility: [facility] Address: [address] [place] [address] Performed By: #### 5 8410-2 ####[facility] LABORATORYCLIA [id number] [address] CONSULTon 09-08-2025 CONSULT HNO ID: [id number] Author: RICA TAVERAS PA-C Service: Neuroendovascular Intervention Author Type: Physician Sailing Master Type: Consults Filed: 09/08/2025 13:44 Note Text: NEUROENDOVASCULAR CONSULT Patient Name: Sharon Love CONSULTED BY: KEATON CONSULTED FOR: MMA embolization CHIEF COMPLAINT: Subdural hematoma HPI: Sharon Love is a 84 year old female w/ PMH significant for CAD (s/p stenting), HLD, HTN, who presented 10/13 with worsening weakness following a fall at home on 09/02. Patient also fell off treadmill approximately 1 month ago. CTH notable for bilateral frontoparietal convexity mixed density subdural hematomas. Neuroendovascular was consulted for consideration of adjunctive MMA embolization following planned subdural evacuation. Patient states that she has vestibular migraines which can lead to gait imbalance. She initially fell 1 month ago off of a treadmill. Following that fall she was experiencing some generalized weakness and gait imbalance. She fell again 09/02 and since that fall had worsened weakness and imbalance. Currently she says she feels "pretty good", denies headache, vision changes, nausea/vomiting, or weakness. 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 used prisms for a while. surgery w/ benefit FAMILY HISTORY: FAMILY HISTORY Problem Relation Age of Onset Cancer Mother Coronary Artery Disease Father SOCIAL HISTORY: SOCIAL HISTORY[1] MEDICATIONS: ALESSIA ROOT EXTRACT POTake 1 dose by mouth once daily.Disp: Rfl: amLODIPine (NORVASC) 5 mg tabletTake 5 mg by mouth once daily.Disp: Rfl: phytosterol/pantethine (CHOLESTOFF COMPLETE PO)Take 2.5 mg by mouth two times a day.Disp: Rfl: ascorbic acid/collagen hydr (COLLAGEN SKIN RENEWAL PO)Take 1,000 mg by mouth two times a day.Disp: Rfl: hydroCHLOROthiazide (HYDRODIURIL, ESIDRIX) 25 mg tabletTake 12.5 mg by mouth once daily.Disp: Rfl: coffee xt/phosphatidyl serine (NEURIVA ORIGINAL PO)Take 1 dose by mouth once daily.Disp: Rfl: niacin 100 mg capTake 180 mg by mouth once daily.Disp: Rfl: aspirin 81 mg chewable tabletTake 81 mg by mouth once daily.Disp: Rfl: losartan (COZAAR) 100 mg tabletTake 100 mg by mouth once daily. Takes at nightDisp: Rfl: MULTIVIT-MINERALS/FERR OUS FUM (MULTI VITAMIN ORAL)Take by mouth.Disp: Rfl: vitamin e 1,000 unit capsuleTake 1,000 Units by mouth once daily. 670mg dailyDisp: Rfl: CYANOCOBALAMIN, VITAMIN B-12, (VITAMIN B12 ORAL)Take by mouth.Disp: Rfl: CALCIUM CARBONATE/VITAMIN D3 (CALCIUM + D ORAL)Take by mouth.Disp: Rfl: Glucosamine Sulfate (GLUCOSAMINE) 500 mg tabTake 2 tablets by mouth two times a day. Total of 1000mgDisp: Rfl: MEDICATION, NON-DATABASETake 1 each by mouth once daily. Vinia 1 dose dailyDisp: Rfl: Current Facility-Administered Medications Medication Dose Route Frequency metoprolol succinate ER 25 mg tab(s) (TOPROL XL) 25 mg ORAL DAILY NaCl 0.9% iv flush bag 20 mL INTRAVENOUS PRN NaCl 0.9% iv infusion 75 mL/hr INTRAVENOUS CONTINUOUS potassium chloride 20-40 mEq oral powder (KLOR-CON) 20-40 mEq ORAL/FEEDING TUBE PRN Or potassium chloride iv piggyback 20 mEq/100 mL 20 mEq INTRAVENOUS PRN sodium phosphate 30 mmol in D5W 250 mL 30 mmol INTRAVENOUS PRN(NO DISPENSE) Or sodium phosphate 45 mmol in D5W 250 mL 45 mmol INTRAVENOUS PRN(NO DISPENSE) magnesium sulfate iv piggyback in sterile water 2 g 50 mL 2 g INTRAVENOUS PRN calcium gluconate iv piggyback 2 g in NaCl (iso-osmotic) 100 mL 2 g INTRAVENOUS PRN(NO DISPENSE) ondansetron 4 mg tab(s) (ZOFRAN) 4 mg ORAL q 6 H PRN Or ondansetron (PF) 4 mg injection (ZOFRAN) 4 mg INTRAVENOUS q 6 H PRN oxyCODONE IR 2.5-5 mg tab(s) (ROXICODONE) 2.5-5 mg ORAL q 4 H PRN fentaNYL 50 mcg/mL 25 mcg injection (SUBLIMAZE) 25 mcg INTRAVENOUS q 2 H PRN senna-docusate 8.6-50 mg 1 tablet (SENNA-S) 1 tablet ORAL BID NaCl 0.9% iv flush bag 20 mL INTRAVENOUS PRN iv contrast (radiology procedure) INTRAVENOUS DIRECTED PRN iv contrast (radiology procedure) INTRAVENOUS DIRECTED PRN ALLERGIES: ALLERGIES Allergen Reactions Metoprolol Unknown Penicillamine Xxuvujc-Gzg-Tly Red* Unknown COMPLETE REVIEW OF SYSTEMS: ROS negative unless otherwise noted in HPI PHYSICAL EXAM: 09/08/25 0400 09/08/25 0500 09/08/25 0600 09/08/25 0815 BP: 101/67 112/64 115/67 133/77 Pulse: 64 61 61 67 Resp: 16 13 Temp: 36.6 ?C (97.8 ?F) TempSrc: Oral SpO2: 96% (!) 94% 96% 95% Weight: Height: GENERAL: (more content not included)... Normal [facility] CONSULT HNO ID: [id number] Author: CRUZ MANCILLA APRN.CNP Service: Neurosurgery Author Type: Nurse Practitioner Type: Consults Filed: 09/08/2025 01:38 Note Text: Attestation signed by Omer Bui MD at 09/08/2025 2:43 PM Pt seen and examined, HANDP reviewed, and I agree with the above. 84F on ASA who presents with bilateral subacute SDH after a fall 1 month ago. Reports headaches and recent balance difficulty. Offered bilateral yenni holes for evacuation, + postop NIL eval for possible MMA embolization. Pt and family agree to proceed with surgery today. R/B/A of surgery discussed. Omer Bui MD CONSULT: NEUROSURGERY SERVICE Patient Name: Sharon Love Date of : 1940 SERVICE DATE: 09/08/2025 SERVICE TIME: 1:02 AM REASON FOR CONSULT: SDH REQUESTING PHYSICIAN: Dr Matamoros PRIMARY CARE PHYSICIAN: Joe Carey MD Consultation requested by Dr. Matamoros for an opinion regarding SDH. My final recommendations will be communicated back to the requesting physician by way of shared Medical record or letter to requesting physician via US mail. CHIEF COMPLAINT: SDH HISTORY OF PRESENT ILLNESS : The patient is a 84 year old female with PMH of CAD, artery stent, HLD, HTN and previous Nstemi who presents with worsening weakness following a fall at home. The patient had an initial fall off a treadmill on 08/01 and was seen at [facility] and after being worked up was found stable for discharge. Over the past month the patient has had some cognitive issues as well as gait and ambulation difficulty. Around one week prior to today she had another fall onto her buttocks and was seen in the ED and found to have an S5 fracture. Over the course of the week family has noted that she has been having issues ambulating and encouraged her to seek care. At [facility] a CT brain was completed indicating large bilateral SDH. She was transferred to [facility] and arrived GCS 15 and without focal deficits. 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 used prisms for a while. surgery w/ benefit FAMILY HISTORY Problem Relation Age of Onset Cancer Mother Coronary Artery Disease Father ALLERGIES Allergen Reactions Metoprolol Unknown Penicillamine Phwxvkm-Nrl-Fus Red* Unknown Current Facility-Administered Medications Medication Dose Route Frequency Provider Last Rate Last Admin metoprolol succinate ER 25 mg tab(s) (TOPROL XL) 25 mg ORAL DAILY Mk Carolina MD 25 mg at 09/07/25 2316 NaCl 0.9% iv flush bag 20 mL INTRAVENOUS PRN Mk Carolina MD NaCl 0.9% iv infusion 75 mL/hr INTRAVENOUS CONTINUOUS Mk Carolina MD 75 mL/hr at 09/07/25 2321 75 mL/hr at 09/07/25 2321 potassium chloride 20-40 mEq oral powder (KLOR-CON) 20-40 mEq ORAL/FEEDING TUBE PRN Mk Carolina MD 20 mEq at 09/07/25 2344 Or potassium chloride iv piggyback 20 mEq/100 mL 20 mEq INTRAVENOUS PRN Mk Carolina MD sodium phosphate 30 mmol in D5W 250 mL 30 mmol INTRAVENOUS PRN(NO DISPENSE) Mk Carolina MD Or sodium phosphate 45 mmol in D5W 250 mL 45 mmol INTRAVENOUS PRN(NO DISPENSE) Mk Carolina MD magnesium sulfate iv piggyback in sterile water 2 g 50 mL 2 g INTRAVENOUS PRN Mk Carolina MD calcium gluconate iv piggyback 2 g in NaCl (iso-osmotic) 100 mL 2 g INTRAVENOUS PRN(NO DISPENSE) Mk Carolina MD ondansetron 4 mg tab(s) (ZOFRAN) 4 mg ORAL q 6 H PRN Mk Carolina MD Or ondansetron (PF) 4 mg injection (ZOFRAN) 4 mg INTRAVENOUS q 6 H PRN Mk Carolina MD oxyCODONE IR 2.5-5 mg tab(s) (ROXICODONE) 2.5-5 mg ORAL q 4 H PRN Mk Carolina MD fentaNYL 50 mcg/mL 25 mcg injection (SUBLIMAZE) 25 mcg INTRAVENOUS q 2 H PRN Mk Carolina MD senna-docusate 8.6-50 mg 1 tablet (SENNA-S) 1 tablet ORAL BID Mk Carolina MD 1 tablet at 09/07/25 2316 NaCl 0.9% iv flush bag 20 mL INTRAVENOUS PRN Mk Carolina MD iv contrast (radiology procedure) INTRAVENOUS DIRECTED PRN Mk Carolina MD iv contrast (radiology procedure) INTRAVENOUS DIRECTED PRN Mk Carolina MD Current Outpatient Medications Medication Sig Dispense Refill ALESSIA ROOT EXTRACT PO Take 1 dose by mouth once daily. amLODIPine (NORVASC) 5 mg tablet Take 5 mg by mouth once daily. phytosterol/pantethine (CHOLESTOFF COMPLETE PO) Take 2.5 mg by mouth two times a day. ascorbic acid/collagen hydr (COLLAGEN SKIN RENEWAL PO) Take 1,000 mg by mouth two times a day. hyd (more content not included)... Normal [facility] CONSULT HNO ID: [id number] Author: RAMY BLANCHARD MD Service: General Surgery Author Type: Resident Type: Consults Filed: 09/08/2025 12:19 Note Text: Attestation signed by Ramy Blanchard MD at 09/08/2025 12:19 PM I provided 30 minutes of critical care services which were necessary due to above specified injuries and illnesses. This patient has a high probability of sudden, clinical significant deterioration, which required the highest level of care and preparedness to intervene urgently. I managed and supervised life or organ supporting interventions that require frequent assessments. This time does not include time devoted to teaching and to any procedure I billed separately. I have personally seen and examined this patient and participated in the negron components of this encounter with the multi-disciplinary ICU team. I discussed the management of this case with the resident and reviewed/confirmed their documentation, attached or in separate note. I personally reviewed today's actual images, the associated image reports, and current labs. I supervised the ordering of additional testing, imaging, labs, and/or consultations. The patient and/or family were fully informed of the findings and plan of care. They had the opportunity to ask questions and raise any issues of concern, all of which were answered and dealt with by me to their stated satisfaction. The critical care treatment was mainly directed to address the following current issues: Active Hospital Problems Diagnosis Date Noted Subdural hematoma (HCC) 09/07/2025 Fall 09/08/2025 Sacral fracture, closed (HCC) 09/08/2025 Management included sedation, pain control and ventilation assessment including need for ventilator, weaning and/or extubation as indicated. Management of critical care illnesses are edited above by me, including system by system plan and are not only limited to infectious disease and tailoring the antibiotic therapy, nutrition assessment and supplementation, electrolyte correction and prevention of ICU related complications using ventilator bundle, sedation holiday and assessment and removal of lines and tubes where indicated. SIGNATURE: Ramy Blanchard MD PATIENT NAME: Sharon Love DATE: September 08, 2025 TIME: 12:19 PM Surgical Intensive Care Unit Consult Note SERVICE DATE: 09/07/2025 SERVICE TIME: 10:23 PM REASON FOR CONSULT: SDH REQUESTING PHYSICIAN: Self Subjective 84 year old female PMH HTN, HLD, remote roscoe and hysterectomy. She presents to [facility] as a trauma transfer with concern for bilateral subdural hematoma following GLF on 09/02. Patient initially presented to [facility] on 09/02 following a mechanical ground-level fall causing her to her land backwards on her buttocks. She states that she never struck her head or lost any consciousness during this episode. She subsequently went to sleep but then presented to [facility] after ongoing low back pain. She had x-rays of her lumbar spine and sacrum which were notable for S5 acute minimally depressed fracture of the anterior cortex of S5 vertebral body. Given she did not complain of hitting her head and was denying injuries to any other portion of her body, she was discharged home with plans for outpatient follow-up for her sacral fracture. However, throughout the week her family noted that she had some gait instability and some mild mental status changes although she remained Aox3. This prompted evaluation at [facility] again where she was scanned with CT head notable for bilateral subdural hematoma. This then prompted transfer to [facility]. She denies any pain currently and her secondary exam is negative for any obvious signs of external trauma. She has a mild headache but is neuromotor intact without any clear neurologic deficits although family and her report gait stability. She also notes a fall off a treadmill roughly 1 month ago but did not report any symptoms following that. 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 used prisms for a while. surgery w/ benefit FAMILY HISTORY Problem Relation Age of Onset Cancer Mother Coronary Artery Disease Father SOCIAL HISTORY[1] Prescriptions Prior to Admission[2] Current Facility-Administered Medications Medication Dose Route Frequency NaCl 0.9% iv flush bag 20 mL INTRAVENOUS PRN iv contrast (radiology procedure) INTRAVENOUS (more content not included)... Normal [facility] CT ABD/PEL W IVCONon 10-13-[address] ABD/PEL W IVCON * * *Final Report* * * DATE OF EXAM: Sep 08 2025 12:17AM [facility] 0530 - CT ABD/PEL W IVCON / PROCEDURE REASON: Abdominal trauma, blunt * * * * Physician Interpretation * * * * EXAMINATION: CHEST CT WITH CONTRAST CLINICAL HISTORY: Trauma. Technique: Spiral CT acquisition of the chest from the thoracic inlet to the upper abdomen following IV contrast. MQ: [id number]_6 Contrast: 100 mL Omnipaque [address] Radiation dose: Integrated Dose-length product (DLP) for this visit = 402 mGy*cm CT Dose Reduction Employed: Automated exposure control(AEC) and iterative recon Comparison: Type of study and date/time RESULT: Limitations: None. Lines, tubes, and devices: None. Lung parenchyma and airways: No consolidation. No suspicious pulmonary nodule. The central airways are patent. Pleural space: No pleural effusion. No pleural thickening. Lower neck, lymph nodes, and mediastinum: The imaged thyroid gland is normal. No lymphadenopathy in the supraclavicular, axillary, mediastinal, or hilar regions. Heart, pericardium, and thoracic vessels: The thoracic aorta and main pulmonary artery are normal in caliber. The cardiac chambers are normal in size. No coronary artery atherosclerotic calcifications are noted, although the study is not optimized for coronary assessment. No pericardial effusion or thickening. Liver: Large simple appearing cysts in both hepatic lobes, measuring up to 8.8 cm in diameter in the RIGHT hepatic lobe. Biliary: Cholecystectomy. Spleen: No mass. No splenomegaly. Pancreas: No mass or duct dilation. Adrenals:No mass. Kidneys: No hydronephrosis or nephrolithiasis. Normal appearance of the urinary bladder. GI tract: No dilation or wall thickening. Colonic diverticula without CT evidence of diverticulitis. No intraperitoneal free fluid or free air. Lymph nodes: No abdominal lymphadenopathy. Mesentery/Peritoneum: No ascites or mass. Vasculature: The celiac axis and SMA are patent. The portal vein and branches, splenic vein, SMV, and hepatic veins are patent. Osseous structures: No concerning lytic or blastic osseous lesion. Vertebral body heights are maintained. The sternum and clavicles are intact. No displaced rib fractures. The bony pelvis and proximal femurs are intact. Soft tissues: No acute abnormality of the superficial soft tissues. Localizer images: No additional abnormality. IMPRESSION: No CT evidence of acute posttraumatic abnormality of the chest, abdomen, or pelvis. Threat Monitoring Analyst: OSBALDO Transcribe Date/Time: Sep 08 2025 1:53A Dictated by : ALLISON CHAN MD This examination was interpreted and the report reviewed and electronically signed by: ALLISON CHAN MD on Sep 08 2025 2:01AM EST [id number] Normal [facility] CT BRAIN WO IVCONon 09-08-20 CT BRAIN WO IVCON * * *Final Report* * * DATE OF EXAM: Sep 08 2025 5:42PM [facility] 0504 - CT BRAIN WO IVCON / PROCEDURE REASON: Craniotomy, post-op * * * * Physician Interpretation * * * * EXAMINATION: CT BRAIN WO IVCON CLINICAL HISTORY: Craniotomy. Postoperative. TECHNIQUE: Serial axial images without IV contrast were obtained from the vertex to the foramen magnum. MQ: CTBWO_3 CT Radiation dose: Integrated Dose-Length Product (DLP) for this visit = 824 mGy*cm CT Dose Reduction Employed: Iterative recon COMPARISON: CT brain performed 09/08/2025. RESULT: Localizer images: Noncontributory. Post-operative change: Bifrontal yenni hole's with overlying skin joann. Acute change: No evidence of an acute infarct or other acute parenchymal process. Hemorrhage: Evacuation of bilateral subdural hematomas with intracranial air and low attenuation fluid bilaterally. Degree of mass effect appears decreased since prior exam. No new areas of acute intracranial hemorrhage are present. ECASS hemorrhagic transformation score: Not Applicable Mass Lesion / Mass Effect: Detailed above. Chronic change: Stable remote infarct within the LEFT basal ganglia. Parenchyma: There is no significant volume loss. The brain parenchyma is otherwise within normal limits for age. Ventricles: The ventricles are within normal limits of size and configuration for age. Paranasal sinuses and skull base: The visualized paranasal sinuses are grossly clear. The skull base and imaged soft tissues are unremarkable. IMPRESSION: Postoperative changes as above. Decreased subdural blood products. Decreased mass effect. Threat Monitoring Analyst: OSBALDO Transcribe Date/Time: Sep 08 2025 5:44P Dictated by : DANIEL JAMIES MD This examination was interpreted and the report reviewed and electronically signed by: DANIEL JAIMES MD on Sep 08 2025 5:53PM EST [id number] Normal [facility] CT BRAIN WO IVCON * * *Final Report* * * DATE OF EXAM: Sep 08 2025 12:16AM [facility] 0504 - CT BRAIN WO IVCON / PROCEDURE REASON: Head trauma, moderate-severe * * * * Physician Interpretation * * * * EXAMINATION: CT CERVICAL SPINE WO IVCON, CT BRAIN WO IVCON CLINICAL HISTORY: Spine fracture, cervical, traumatic (accession [id number]), Head trauma, moderate-severe (accession [id number]) TECHNIQUE: Serial axial images without IV contrast were obtained from the vertex to the cervicothoracic junction. MQ: CTBCSWO_3 CT Radiation dose: Integrated Dose-Length Product (DLP) for this visit = 1101 mGy*cm CT Dose Reduction Employed: Iterative recon COMPARISON: Outside head CT 09/07/2025. RESULT: HEAD: Post-operative change: None. Acute change: No evidence of an acute infarct or other acute parenchymal process. Hemorrhage: Stable loculated mixed density bilateral frontoparietal convexity subdural hematomas, predominantly isodense, measuring 18 mm in maximum thickness bilaterally. ECASS hemorrhagic transformation score: Not Applicable Mass Lesion / Mass Effect: Stable bilateral frontoparietal parenchymal mass effect. No significant midline shift. Chronic change: Chronic lacunar infarcts in the right caudate nucleus, left guillen radiata and left basal ganglia. Parenchyma: There is mild generalized volume loss. The brain parenchyma is otherwise within normal limits for age. Ventricles: The ventricles are within normal limits of size and configuration for age. Other: Visualized paranasal sinuses and mastoid air cells are clear. Unremarkable orbits and extracranial soft tissues. Intact calvarium and skull base. Localizer images: Unremarkable. CERVICAL SPINE: Counting reference: Craniocervical junction. Anatomic Variants: None. Localizer images: Unremarkable. Alignment: 3 mm anterolisthesis at C2/C3. 2 mm retrolisthesis at C3/C4 and C5/C6. Craniocervical junction: Craniocervical junction is normal. Osseous structures/fracture: No evidence of a lytic or blastic process in the visualized spine. No evidence of acute or chronic cervical spine fracture. Small chronic compression fracture deformity of T3 involving the superior endplate. Cervical soft tissues: The paraspinal soft tissues are within normal limits. Degenerative changes: Multilevel degenerative disc disease as evidenced by disc space narrowing, endplate sclerosis and osteophytes, markedly severe at C3/C4 and C5/C6 and severe at C4/C5 and C6-C7. Bilateral facet arthropathy, markedly severe on the left at C2/C3. Canal and foramina: Multilevel spinal canal stenosis due to disc osteophyte complexes and ligamentum flavum hypertrophy, mild to moderate at C5/C6 and C6/C7. A calcified right paracentral disc protrusion at C6/C7 contributes to spinal canal stenosis with possible mild ventral cord compression. Multilevel neuroforaminal stenosis of varying degrees due to uncovertebral and facet hypertrophy no for severe left C2/C3 neuroforaminal stenosis, moderate to severe left and mild right C3/C4 neuroforaminal stenosis, and severe left and mild right C5/C6 neuroforaminal stenosis. Other: Visualized lung apices are clear. IMPRESSION: Head CT: Stable bilateral frontoparietal convexity mixed density subdural hematomas with associated parenchymal mass effect. No acute calvarial fracture. Cervical spine CT: No acute cervical spine fracture or traumatic malalignment. Degenerative changes as described. Possible mild cord compression at C6/C7 due to a calcified disc protrusion, which would be best evaluated with a noncontrast MRI cervical spine. Anatomic Variant: None. Assume 7 cervical vertebrae with counting from the craniocervical junction. Threat Monitoring Analyst: OSBALDO Transcribe Date/Time: Sep 08 2025 1:19A Dictated by : KAREL TORRES MD This examination was interpreted and the report reviewed and electronically signed by: KAREL TORRES MD on Sep 08 2025 2:39AM EST [id number] Normal [facility] CT CERVICAL SPINE WO IVCONon 09-08-2025 CT CERVICAL SPINE WO IVCON * * *Final Report* * * DATE OF EXAM: Sep 08 2025 12:16AM [facility] 0[facility] - CT CERVICAL SPINE WO IVCON / PROCEDURE REASON: Spine fracture, cervical, traumatic * * * * Physician Interpretation * * * * EXAMINATION: CT CERVICAL SPINE WO IVCON, CT BRAIN WO IVCON CLINICAL HISTORY: Spine fracture, cervical, traumatic (accession [id number]), Head trauma, moderate-severe (accession [id number]) TECHNIQUE: Serial axial images without IV contrast were obtained from the vertex to the cervicothoracic junction. MQ: CTBCSWO_3 CT Radiation dose: Integrated Dose-Length Product (DLP) for this visit = 1101 mGy*cm CT Dose Reduction Employed: Iterative recon COMPARISON: Outside head CT 09/07/2025. RESULT: HEAD: Post-operative change: None. Acute change: No evidence of an acute infarct or other acute parenchymal process. Hemorrhage: Stable loculated mixed density bilateral frontoparietal convexity subdural hematomas, predominantly isodense, measuring 18 mm in maximum thickness bilaterally. ECASS hemorrhagic transformation score: Not Applicable Mass Lesion / Mass Effect: Stable bilateral frontoparietal parenchymal mass effect. No significant midline shift. Chronic change: Chronic lacunar infarcts in the right caudate nucleus, left guillen radiata and left basal ganglia. Parenchyma: There is mild generalized volume loss. The brain parenchyma is otherwise within normal limits for age. Ventricles: The ventricles are within normal limits of size and configuration for age. Other: Visualized paranasal sinuses and mastoid air cells are clear. Unremarkable orbits and extracranial soft tissues. Intact calvarium and skull base. Localizer images: Unremarkable. CERVICAL SPINE: Counting reference: Craniocervical junction. Anatomic Variants: None. Localizer images: Unremarkable. Alignment: 3 mm anterolisthesis at C2/C3. 2 mm retrolisthesis at C3/C4 and C5/C6. Craniocervical junction: Craniocervical junction is normal. Osseous structures/fracture: No evidence of a lytic or blastic process in the visualized spine. No evidence of acute or chronic cervical spine fracture. Small chronic compression fracture deformity of T3 involving the superior endplate. Cervical soft tissues: The paraspinal soft tissues are within normal limits. Degenerative changes: Multilevel degenerative disc disease as evidenced by disc space narrowing, endplate sclerosis and osteophytes, markedly severe at C3/C4 and C5/C6 and severe at C4/C5 and C6-C7. Bilateral facet arthropathy, markedly severe on the left at C2/C3. Canal and foramina: Multilevel spinal canal stenosis due to disc osteophyte complexes and ligamentum flavum hypertrophy, mild to moderate at C5/C6 and C6/C7. A calcified right paracentral disc protrusion at C6/C7 contributes to spinal canal stenosis with possible mild ventral cord compression. Multilevel neuroforaminal stenosis of varying degrees due to uncovertebral and facet hypertrophy no for severe left C2/C3 neuroforaminal stenosis, moderate to severe left and mild right C3/C4 neuroforaminal stenosis, and severe left and mild right C5/C6 neuroforaminal stenosis. Other: Visualized lung apices are clear. IMPRESSION: Head CT: Stable bilateral frontoparietal convexity mixed density subdural hematomas with associated parenchymal mass effect. No acute calvarial fracture. Cervical spine CT: No acute cervical spine fracture or traumatic malalignment. Degenerative changes as described. Possible mild cord compression at C6/C7 due to a calcified disc protrusion, which would be best evaluated with a noncontrast MRI cervical spine. Anatomic Variant: None. Assume 7 cervical vertebrae with counting from the craniocervical junction. Threat Monitoring Analyst: OSBALDO Transcribe Date/Time: Sep 08 2025 1:19A Dictated by : KAREL TORRES MD This examination was interpreted and the report reviewed and electronically signed by: KAREL TORRES MD on Sep 08 2025 2:39AM EST [id number] Normal [facility] CT CHEST W IVCONon CT CHEST W IVCON * * *Final Report* * * DATE OF EXAM: Sep 08 2025 12:17AM [facility] 0539 - CT CHEST W IVCON / PROCEDURE REASON: Chest trauma, blunt * * * * Physician Interpretation * * * * EXAMINATION: CHEST CT WITH CONTRAST CLINICAL HISTORY: Trauma. Technique: Spiral CT acquisition of the chest from the thoracic inlet to the upper abdomen following IV contrast. MQ: CTCW_6 Contrast: 100 mL Omnipaque [address] Radiation dose: Integrated Dose-length product (DLP) for this visit = 402 mGy*cm CT Dose Reduction Employed: Automated exposure control(AEC) and iterative recon Comparison: Type of study and date/time RESULT: Limitations: None. Lines, tubes, and devices: None. Lung parenchyma and airways: No consolidation. No suspicious pulmonary nodule. The central airways are patent. Pleural space: No pleural effusion. No pleural thickening. Lower neck, lymph nodes, and mediastinum: The imaged thyroid gland is normal. No lymphadenopathy in the supraclavicular, axillary, mediastinal, or hilar regions. Heart, pericardium, and thoracic vessels: The thoracic aorta and main pulmonary artery are normal in caliber. The cardiac chambers are normal in size. No coronary artery atherosclerotic calcifications are noted, although the study is not optimized for coronary assessment. No pericardial effusion or thickening. Liver: Large simple appearing cysts in both hepatic lobes, measuring up to 8.8 cm in diameter in the RIGHT hepatic lobe. Biliary: Cholecystectomy. Spleen: No mass. No splenomegaly. Pancreas: No mass or duct dilation. Adrenals:No mass. Kidneys: No hydronephrosis or nephrolithiasis. Normal appearance of the urinary bladder. GI tract: No dilation or wall thickening. Colonic diverticula without CT evidence of diverticulitis. No intraperitoneal free fluid or free air. Lymph nodes: No abdominal lymphadenopathy. Mesentery/Peritoneum: No ascites or mass. Vasculature: The celiac axis and SMA are patent. The portal vein and branches, splenic vein, SMV, and hepatic veins are patent. Osseous structures: No concerning lytic or blastic osseous lesion. Vertebral body heights are maintained. The sternum and clavicles are intact. No displaced rib fractures. The bony pelvis and proximal femurs are intact. Soft tissues: No acute abnormality of the superficial soft tissues. Localizer images: No additional abnormality. IMPRESSION: No CT evidence of acute posttraumatic abnormality of the chest, abdomen, or pelvis. Threat Monitoring Analyst: [facility] Transcribe Date/Time: Sep 08 2025 1:53A Dictated by : ALLISON CHAN MD This examination was interpreted and the report reviewed and electronically signed by: ALLISON CHAN MD on Sep 08 2025 2:01AM EST [id number] Normal [facility] Calcium.ionized [Moles/Vol]o n 09-08-2025 Calcium.ionized (BldV) [Mass/Vol] 1.08 mmol/L Normal 1.08-1.30 [facility] Comment on above: Order Comment: Speci men Type: BLOOD SPECIMENOrdering Facility: [facility] Address: [facility] [place] [address] Performed By: #### 1 995-0 ####[facility] LABORATORYCLIA [id number] [place] [address] [place] Calcium.ionized adjusted to pH 7.4 (Bld) [Moles/Vol] 1.12 mmol/L Normal 1.08-1.30 [facility] Comment on above: Order Comment: Obie barger Type: BLOOD SPECIMENOrdering Facility: [facility] Address: [address] [place] [address] Performed By: #### 1 995-0 ####[facility] LABORATORYCLIA [id number] [address] Magnesium SerPl-mCncon 09-08 Magnesium [Mass/Vol] 2.3 mg/dL Normal 1.7-2.3 [facility] Comment on above: Order Comment: Obie barger Type: BLOOD SPECIMENOrdering Facility: [facility] Address: [address] [place] [address] Performed By: #### 1 9123-9, 2777-1, 91310-0 ####[facility] LABORATORYCLIA [id number] [address] OF [facility] PT panel Coag (PPP)on 2024 INR Coag (PPP) [Relative time] 1.0 {INR} Normal 0.9-1.3 [facility] Comment on above: Order Comment: Obie barger Type: BLOOD SPECIMENOrdering Facility: [facility] Address: [address] [place] [address] Result Comment: Zahraa min K Antagonist (VKA) Therapeutic Range: INR 2 to 3 (Target INR of 2.5) Note: For patients treated with VKA drugs, such as warfarin, the [place] [employer] 2012 Guideline recommends a therapeutic INR range of 2 to 3 (target INR of 2.5). This recommendation includes high-risk patients with antiphospholipid syndrome with previous arterial or venous thromboembolism, current-generation mechanical or bioprosthetic aortic heart valve replacement. Note: Patients with mechanical aortic valve replacement and additional risk factors for thromboembolic events (atrial fibrillation, previous thromboembolism, LV dysfunction, hypercoagulable conditions) or an older generation mechanical AVR (i.e., ball in-Cage) or any mechanical MVR should have a INR therapeutic range of 2.5 to 3.5 (target INR of 3). Mert CANDELARIO, et al. Chest 2012, 141:7S-47S Henry DICK et al. [facility] 2017, 70: 252-289 Performed By: #### 3 4528-0 ####[facility] LABORATORYCLIA [id number] [place] [id number] [place] PT Coag (PPP) [Time] 11.3 s Normal 9.7-13.0 [facility] Comment on above: Order Comment: Speci men Type: BLOOD SPECIMENOrdering Facility: [facility] Address: [address] [place] [address] Performed By: #### 3 4528-0 ####[facility] LABORATORYCLIA [id number] [place] [id number] [facility] Phosphate SerPl-mCncon 09-08 Phosphate [Mass/Vol] 4.1 mg/dL Normal 2.7-4.8 [facility] Comment on above: Order Comment: Speci men Type: BLOOD SPECIMENOrdering Facility: [facility] Address: [address] [place] [address] Performed By: #### 1 9123-9, 2777-1, 15759-1 ####[facility] LABORATORYCLIA [id number] [address] OF [place] 12 Lead EKGon 09-07-2025 12 Lead EKG [facility] Cardiovascular Services [address] [place] [address] 12 Lead EKG 09/07/25 1848 MR#: [id number] Acct: [id number] Name: SHARON LOVE Rep #: [id number] : 1940 84 From: Mustapha Clement MD Attending Dr: Status: DEP ER Ordering Dr: Juan José Barahona MD Date: 09/07/25 Location: ED Sex: F C Admitted: Test Reason : HTN Blood Pressure : */* mmHG Vent. Rate : 88 BPM Atrial Rate : 88 BPM P-R Int : 120 ms QRS Dur : 108 ms QT Int : 390 ms P-R-T Axes : 74 -68 67 degrees QTcB Int : 471 ms Sinus rhythm with occasional Premature ventricular complexes Left anterior fascicular block Minimal voltage criteria for LVH, may be normal variant ( Yasmani product ) Abnormal ECG Confirmed by MUSTAPHA CLEMENT MD ([id number]), editor at large GAVINO MENARD ([id number]) on 09/09/2025 7:47:32 AM Referred By: Confirmed By: MUSTAPHA CLEMENT MD 09/09/25 0747 Date Mustapha Clement MD CC: Dr. Joe Carey MD; Dr. Juan José Barahona MD Signed Normal [facility] Brain/Head without Contrasto n 09-07-2025 Brain/Head without Contrast [facility] Imaging Services [address] [place] [address] Brain/Head without Contrast MR#: [id number] Acct: [id number] Name: SHARON LOVE Rep #: [id number] : 1940 F 84 From: Lester Fonseca MD PCP: Dr. Joe Carey MD Status: REG ER Study: Brain/Head without Contrast Date of Exam: 08/27 01/21 Exam# [id number] Ordering Dr: Juan José Barahona MD PROCEDURE: BRAIN/HEAD WITHOUT CONTRAST 09/07/2025 REASON FOR EXAM: HEADACHE, SHUFFLED GAIT, INCONTINENCE TECHNIQUE: Procedure Code: CTBR Modality: CT Procedure: BRAIN/HEAD WITHOUT CONTRAST Coronal and Sagittal reconstruction series were provided. One or more dose reduction techniques were used (e.g., Automated exposure control, adjustment of the mA and/or kV according to patient size, use of iterative reconstruction technique. FINDINGS: Bilateral intermediate density subdural hemorrhages which are relatively balanced. Thickness on the right at least 18 mm. Thickness on the left also 18 mm. Septum midline. No parenchymal hematoma. No skull fracture. CT/Brain/Head without Contrast IMPRESSION: Bilateral intermediate density subdural hemorrhages. No downward herniation at this time. A reading will be immediately called Reading [facility] CC: Dr. Joe Carey MD; Dr. Juan José Barahona MD Threat Monitoring Analyst: Signed Normal [facility] CBC W/Diff, Automatedon 10-11 28-2024 Absolute Lymph 1.72 X10 3/uL Normal 0.83-4.51 [facility] Comment on above: Performed By: #### L 100.0100, L500.4050 #### [facility] [address] [place], [address] Absolute Neut 4.7 X10 3/uL Normal 2.0-7.7 [facility] Comment on above: Performed By: #### L 100.0100, L500.4050 #### [facility] [address] [place], [address] Basophils/100 WBC (Bld) 0.8 % Normal 0-1 [facility] Comment on above: Performed By: #### L 100.0100, L500.4050 #### [facility] [address] [place], [address] Eosinophils/100 WBC (Bld) 1.4 % Normal 0-5 [facility] Comment on above: Performed By: #### L 100.0100, L500.4050 #### [facility] [address] [place], [address] Erythrocyte distribution width (RBC) [Ratio] 13.5 % Normal 11.6-14.6 [facility] Comment on above: Performed By: #### L 100.0100, L500.4050 #### [facility] [address] [place], [address] Hematocrit (Bld) [Volume fraction] 37.9 % Normal 37-47 [facility] Comment on above: Performed By: #### L 100.0100, L500.4050 #### [facility] [address] [place], [address] Hemoglobin (Bld) [Mass/Vol] 12.7 g/dL Normal 12.0-15.0 [facility] Comment on above: Performed By: #### L 100.0100, L500.4050 #### [facility] [address] [place], [id number] IG% 0.500 Normal 0.0-0.9 [facility] Comment on above: Result Comment: IG% - Immature Granulocytes (promyelocytes, myelocytes and metamyelocytes) > 1% indicates that a LEFT SHIFT is Present. Performed By: #### L 100.0100, L500.4050 #### [facility] [address] [place], [id number] Lymphocytes/100 WBC (Bld) 23.5 % Normal 19-41 [facility] Comment on above: Performed By: #### L 100.0100, L500.4050 #### [facility] [address] [place], [address] MCH (RBC) [Entitic mass] 31.1 pg Normal 27.0-32.0 [facility] Comment on above: Performed By: #### L 100.0100, L500.4050 #### [facility] [address] [place], [id number] MCHC (RBC) [Mass/Vol] 33.5 g/dL Normal 32-36 [facility] Comment on above: Performed By: #### L 100.0100, L500.4050 #### [facility] [address] [place], [address] MCV (RBC) [Entitic vol] 92.7 fL Normal 81-99 [facility] Comment on above: Performed By: #### L 100.0100, L500.4050 #### [facility] [address] [place], [address] Monocytes/100 WBC (Bld) 9.0 % Normal 0-10 [facility] Comment on above: Performed By: #### L 100.0100, L500.4050 #### [facility] [address] [place], [address] Neutrophils/100 WBC (Bld) 64.8 % Normal 47-70 [facility] Comment on above: Performed By: #### L 100.0100, L500.4050 #### [facility] [address] [place], [address] Nucleated RBC (Bld) [#/Vol] 0 10*3/uL Normal 0-5 [facility] Comment on above: Performed By: #### L 100.0100, L500.4050 #### [facility] [address] [place], [address] Platelet mean volume (Bld) [Entitic vol] 8.9 fL Normal 6.2-12.0 [facility] Comment on above: Performed By: #### L 100.0100, L500.4050 #### [facility] [address] [place], [address] Platelets (Bld) [#/Vol] 272 10*3/uL Normal 150-450 [facility] Comment on above: Performed By: #### L 100.0100, L500.4050 #### [facility] [address] [place], [address] RBC (Bld) [#/Vol] 4.09 10*6/uL Low 4.2-5.4 [facility] Comment on above: Performed By: #### L 100.0100, L500.4050 #### [facility] [address] [place], [address] RDW SD 45.9 fl High 35.1-43.9 [facility] Comment on above: Performed By: #### L 100.0100, L500.4050 #### [facility] [address] [place], [address] WBC (Bld) [#/Vol] 7.3 10*3/uL Normal 4.4-11.0 [facility] Comment on above: Performed By: #### L 100.0100, L500.4050 #### [facility] [address] [place], [address] CBC panel Auto (Bld)on 09-07 Erythrocyte distribution width (RBC) [Ratio] 13.3 % Normal 11.5-15.0 [facility] Comment on above: Order Comment: Speci men Type: BLOOD SPECIMENOrdering Facility: [facility] Address: [address] [place] [address] Performed By: #### 5 8410-2 ####[facility] LABORATORYCLIA [id number] [address] [place] Hematocrit (Bld) [Volume fraction] 37.6 % Normal 36.0-46.0 [facility] Comment on above: Order Comment: Speci men Type: BLOOD SPECIMENOrdering Facility: [facility] Address: [address] [place] [address] Performed By: #### 5 8410-2 ####[facility] LABORATORYCLIA [id number] [address] [place] Hemoglobin (Bld) [Mass/Vol] 12.5 g/dL Normal 11.5-15.5 [facility] Comment on above: Order Comment: Speci men Type: BLOOD SPECIMENOrdering Facility: [facility] Address: [address] [place] [address] Performed By: #### 5 8410-2 ####[facility] LABORATORYCLIA [id number] [place] [address] [place] MCH (RBC) [Entitic mass] 30.9 pg Normal 26.0-34.0 [facility] Comment on above: Order Comment: Speci men Type: BLOOD SPECIMENOrdering Facility: [facility] Address: [address] [place] [address] Performed By: #### 5 8410-2 ####[facility] LABORATORYCLIA [id number] [address] STATES [facility] MCHC (RBC) [Mass/Vol] 33.2 g/dL Normal 30.5-36.0 [facility] Comment on above: Order Comment: Speci men Type: BLOOD SPECIMENOrdering Facility: [facility] Address: [address] [place] [address] Performed By: #### 5 8410-2 ####[facility] LABORATORYCLIA [id number] [address] OF [place] MCV (RBC) [Entitic vol] 92.8 fL Normal 80.0-100.0 [facility] Comment on above: Order Comment: Speci men Type: BLOOD SPECIMENOrdering Facility: [facility] Address: [address] [place] [address] Performed By: #### 5 8410-2 ####[facility] LABORATORYCLIA [id number] [address] Nucleated RBC (Bld) [#/Vol] 10*3/uL Normal <0.01 [facility] Comment on above: Order Comment: Speci men Type: BLOOD SPECIMENOrdering Facility: [facility] Address: [address] [place] [address] Performed By: #### 5 8410-2 ####[facility] LABORATORYCLIA [id number] [address] Platelet mean volume (Bld) [Entitic vol] 10.6 fL Normal 9.0-12.7 [facility] Comment on above: Order Comment: Speci men Type: BLOOD SPECIMENOrdering Facility: [facility] Address: [address] [place] [address] Performed By: #### 5 8410-2 ####[facility] LABORATORYCLIA [id number] [address] [place] Platelets (Bld) [#/Vol] 258 10*3/uL Normal 150-400 [facility] Comment on above: Order Comment: Speci men Type: BLOOD SPECIMENOrdering Facility: [facility] Address: [address] [place] [address] Performed By: #### 5 8410-2 ####[facility] LABORATORYCLIA [id number] [place] [id number] [facility] RBC (Bld) [#/Vol] 4.05 10*6/uL Normal 3.90-5.20 [facility] Comment on above: Order Comment: Speci men Type: BLOOD SPECIMENOrdering Facility: [facility] Address: [address] [place] [address] Performed By: #### 5 8410-2 ####[facility] LABORATORYCLIA [id number] [address] OF [facility] WBC (Bld) [#/Vol] 7.99 10*3/uL Normal 3.70-11.00 [facility] Comment on above: Order Comment: Obie barger Type: BLOOD SPECIMENOrdering Facility: [facility] Address: [address] [place] [address] Performed By: #### 5 8410-2 ####[facility] LABORATORYCLIA [id number] [address] CNCRITCRon 09-07-2025 CNCRITCR Critical Care Transport (CCT) SHARON LOVE ([id number]) 1940 F Date Time Provider Department 09/07/25 MARTHA PETERSON CCT During your visit today, we recorded the following information about you: Martha Peterson APRN.CNP 09/08/2025 12:37 AM Signed Critical Care Transport Note Patient Name: Sharon M Kate Service Date: September 07, 2025 Referring Facility: [facility] Accepting Facility: [facility] SUBJECTIVE/CHIEF COMPLAINT: headache REASON FOR TRANSPORT: Higher level of critical care services unavailable at sending facility History of Present Illness: The following history is what was known to CCT team at time of given care and summarized through review of available medical records, patient/family interview and from referring physician and nursing report. Sharon Love is a 84 year old female with a past medical history significant for vertigo, NC s/p PCI with stenting, HTN, HLD and falls. Admits to taking one baby aspirin daily, no thinners. She presented to [facility] for evaluation of headache and unsteady gait that began one week ago after sustaining a fall at home. Pt denies striking her head when she fell and states that she landed on her buttocks. She went to an OSH ED at that time and X-rays of her L spine and sacrum which were notable for S5 acute minimally depressed fracture of the anterior cortex of S5 vertebral body. She was discharged home. However, she continued to c/o headaches and was noted to have an unsteady gait which prompted her to present to [facility] this evening where a head CT showed bilateral subdural hematomas. She is being transferred to [facility] for further management. At this time, the physician managing the patient requested transfer to [facility] for tertiary and/or quaternary services unavailable at the referring facility. Patient condition at time of exam was: Acutely ill and critically ill. Due to the unique circumstances of the patient, it was determined that this was the closest, most appropriate facility by referring physician. The physician managing the patient requested the [facility] Critical Care Transport Team transport and treat the patient for the purpose of tertiary care, evaluation, and management of her acute condition(s). Air medical transport was requested to reduce the rhj-gb-mjfrnmbb time, 15 minutes by air vs. approximately 45 minutes by ground, with the potential for increased ground transport time secondary to: distance between facilities and the patient's condition requiring an emergent procedure or evaluation not available at the referring facility ROS: A complete review of systems was performed and is negative except as noted PAST MEDICAL HISTORY: PAST MEDICAL HISTORY Diagnosis Date CAD (coronary artery disease) H/O heart artery stent HLD (hyperlipidemia) HTN (hypertension) NSTEMI (non-ST elevated myocardial infarction) (HCC) Vertigo PAST SURGICAL HISTORY: PAST SURGICAL HISTORY Procedure Laterality Date ANESTH, HYSTERECTOMY CATARACT EXTRACTION HX Bilateral 2002, 2010 CHOLECYSTECTOMY PAST SURGICAL HISTORY OF Right 2016 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 used prisms for a while. surgery w/ benefit ALLERGIES: Metoprolol, Penicillamine, and Wuoxbjq-Qqr-Syv Reductase Inhibitors SOCIAL HISTORY: SOCIAL HISTORY[1] FAMILY HISTORY: FAMILY HISTORY Problem Relation Age of Onset Cancer Mother Coronary Artery Disease Father HOME MEDICATIONS: aspirin 81 mg chewable tabletTake 81 mg by mouth once daily.Disp: Rfl: losartan (COZAAR) 100 mg tabletTake 100 mg by mouth once daily.Disp: Rfl: MULTIVIT-MINERALS/FERR OUS FUM (MULTI VITAMIN ORAL)Take by mouth.Disp: Rfl: vitamin e 1,000 unit capsuleTake 1,000 Units by mouth once daily.Disp: Rfl: EVENING PRIMROSE OIL ORALTake by mouth.Disp: Rfl: CYANOCOBALAMIN, VITAMIN B-12, (VITAMIN B12 ORAL)Take by mouth.Disp: Rfl: DOCOSAHEXANOIC ACID/EPA (FISH OIL ORAL)Take by mouth.Disp: Rfl: Biotin 1 mg tabTake 1 tablet by mouth.Disp: Rfl: CALCIUM CARBONATE/VITAMIN D3 (CALCIUM + D ORAL)Take by mouth.Disp: Rfl: Glucosamine Sulfate (GLUCOSAMINE) 500 mg tabTake 1 tablet by mouth.Disp: Rfl: NO.82/IRON/FOLATE NO2 (TL FOLATE ORAL)Take by mouth.Disp: Rfl: Medications Administered by Referring Facility: none OBJECTIVE: Recent Labs, Diagnostics AND Procedure Reports by OSH reviewed as available Referring Facility Labs CBC: WBC- 7.3 HGB- 12.7 HCT- 37.9 PLT- 272 Coags: INR- NA PTT- NA Chemistry: NA- 13.7 K+- 3.7 CL -100 CO2- 23 BUN- 25 Cr- 0.90 Glucose- 105 Other Pertinent Labs: none Diagnostics AND Procedure Reports ECG: normal EKG, normal sinus rhythm IMAGING: OT-Brain/Head without Contrast IMPORT Result Date: 09/07/2025 Images (more content not included)... Normal [facility] Comprehensive Metabolic Prof shira 09-07-2025 Albumin [Mass/Vol] 4.6 g/dL Normal 3.4-4.8 [facility] Comment on above: Performed By: #### L 100.0100, L500.4050 #### [facility] [address] [place], [address] Albumin/Globulin [Mass ratio] 1.5 {ratio} Normal 0.9-2.4 [facility] Comment on above: Performed By: #### L 100.0100, L500.4050 #### [facility] [address] [place], [address] ALK PHOS 84 U/L Normal 35-104 [facility] Comment on above: Performed By: #### L 100.0100, L500.4050 #### [facility] [address] [place], [address] ALT [Catalytic activity/Vol] 20 U/L Normal <=34 [facility] Comment on above: Performed By: #### L 100.0100, L500.4050 #### [facility] [address] [place], [address] AST [Catalytic activity/Vol] 34 U/L High <=31 [facility] Comment on above: Performed By: #### L 100.0100, L500.4050 #### [facility] [address] [place], [address] Bilirubin [Mass/Vol] 0.46 mg/dL Normal 0.00-1.30 [facility] Comment on above: Performed By: #### L 100.0100, L500.4050 #### [facility] [address] [place], [address] BUN/CRE 28.3 RATIO High 10-20 [facility] Comment on above: Performed By: #### L 100.0100, L500.4050 #### [facility] [address] [place], [address] Calcium [Mass/Vol] 9.7 mg/dL Normal 7.6-11.0 [facility] Comment on above: Performed By: #### L 100.0100, L500.4050 #### [facility] [address] [place], [address] Chloride [Moles/Vol] 100 mmol/L Normal 98-108 [facility] Comment on above: Performed By: #### L 100.0100, L500.4050 #### [facility] [address] [place], [address] CO2 [Moles/Vol] 23.0 mmol/L Normal 21.0-32.0 [facility] Comment on above: Performed By: #### L 100.0100, L500.4050 #### [facility] [address] [place], [address] Creatinine [Mass/Vol] 0.90 mg/dL Normal 0.70-1.20 [facility] Comment on above: Performed By: #### L 100.0100, L500.4050 #### [facility] [address] [place], [address] ECRCL 34.62 ml/min Low 50-250 [facility] Comment on above: Performed By: #### L 100.0100, L500.4050 #### [facility] [address] [place], [address] GAP 14 Normal 5-15 [facility] Comment on above: Performed By: #### L 100.0100, L500.4050 #### [facility] [address] [place], [address] GFR/1.73 sq M.predicted among non-blacks MDRD (S/P/Bld) [Vol rate/Area] 64 mL/min/{1.73_m2} Normal >60 [facility] Comment on above: Result Comment: mL/m in/1.73m2 CKD-EPI Creatinine Equation (2020) Performed By: #### L 100.0100, L500.4050 #### [facility] [address] [place], [address] Globulin (S) [Mass/Vol] 3.0 g/dL Normal 2.2-4.2 [facility] Comment on above: Performed By: #### L 100.0100, L500.4050 #### [facility] [address] [place], [address] Glucose [Mass/Vol] 105 mg/dL High 70-99 [facility] Comment on above: Performed By: #### L 100.0100, L500.4050 #### [facility] [address] [place], [address] Potassium [Moles/Vol] 3.7 mmol/L Normal 3.3-5.1 [facility] Comment on above: Performed By: #### L 100.0100, L500.4050 #### [facility] [address] [place], [address] Sodium [Moles/Vol] 137 mmol/L Normal 133-145 [facility] Comment on above: Performed By: #### L 100.0100, L500.4050 #### [facility] [address] [place], [address] T PROT 7.6 g/dL Normal 5.9-8.4 [facility] Comment on above: Performed By: #### L 100.0100, L500.4050 #### [facility] [address] [place], [address] Urea nitrogen [Mass/Vol] 25 mg/dL High 4-19 [facility] Comment on above: Performed By: #### L 100.0100, L500.4050 #### [facility] [address] [place], [address] Comprehensive metabolic 2000 panelon 09-07-2025 Albumin [Mass/Vol] 4.4 g/dL Normal 3.9-4.9 [facility] Comment on above: Order Comment: Speci men Type: BLOOD SPECIMENOrdering Facility: [facility] Address: [address] [place] [address] Performed By: #### 2 4323-8, 3040-3 ####[facility]ORATORYCLIA [id number] [place], [place] [id number] [place] [address] ALP [Catalytic activity/Vol] 77 U/L Normal 34-123 [facility] Comment on above: Order Comment: Speci men Type: BLOOD SPECIMENOrdering Facility: [facility] Address: [address] [place] [address] Performed By: #### 2 4323-8, 0-3 ####[facility] LABORATORYCLIA [id number] [address] OF [facility] ALT With P-5'-P [Catalytic activity/Vol] 17 U/L Normal 7-38 [facility] Comment on above: Order Comment: Speci men Type: BLOOD SPECIMENOrdering Facility: [facility] Address: [address] [place] [address] Performed By: #### 2 4323-8, 0-3 ####[facility] LABORATORYCLIA [id number] [address] Anion gap [Moles/Vol] 11 mmol/L Normal 8-15 [facility] Comment on above: Order Comment: Speci men Type: BLOOD SPECIMENOrdering Facility: [facility] Address: [address] [place] [address] Performed By: #### 2 4323-8, 0-3 ####[facility] LABORATORYCLIA [id number] [address] STATES OF [facility] AST With P-5'-P [Catalytic activity/Vol] 29 U/L Normal 13-35 [facility] Comment on above: Order Comment: Speci men Type: BLOOD SPECIMENOrdering Facility: [facility] Address: [address] [place] [address] Performed By: #### 2 4323-8, 0-3 ####[facility]ORATORYCLIA [id number] [place] [address] [place] Bilirubin [Mass/Vol] 0.4 mg/dL Normal 0.2-1.3 [facility] Comment on above: Order Comment: Speci men Type: BLOOD SPECIMENOrdering Facility: [facility] Address: [address] [place] [address] Performed By: #### 2 4323-8, 3040-3 ####[facility]ORATORYCLIA [id number] [place] [address] [place] Calcium [Mass/Vol] 9.2 mg/dL Normal 8.5-10.2 [facility] Comment on above: Order Comment: Speci men Type: BLOOD SPECIMENOrdering Facility: [facility] Address: [address] [place] [address] Performed By: #### 2 4323-8, 3040-3 ####[facility] LABORATORYCLIA [id number] [place] [address] [place] Chloride [Moles/Vol] 103 mmol/L Normal 98-107 [facility] Comment on above: Order Comment: Speci men Type: BLOOD SPECIMENOrdering Facility: [facility] Address: [address] [place] [address] Performed By: #### 2 4323-8, 3040-3 ####[facility] LABORATORYCLIA [id number] [place] [address] [place] CO2 [Moles/Vol] 24 mmol/L Normal 22-30 [facility] Comment on above: Order Comment: Speci men Type: BLOOD SPECIMENOrdering Facility: [facility] Address: [address] [place] [address] Performed By: #### 2 4323-8, 3040-3 ####[facility]ORATORYCLIA [id number] [place] [address] [place] Creatinine [Mass/Vol] 0.81 mg/dL Normal 0.58-0.96 [facility] Comment on above: Order Comment: Speci men Type: BLOOD SPECIMENOrdering Facility: [facility] Address: [address] [place] [address] Performed By: #### 2 4323-8, 3039-3 ####[facility] LABORATORYCLIA [id number] [address] [place] eGFRcr SerPlBld CKD-EPI 2020 73 mL/min/1.73m??? Normal >=60 [facility] Comment on above: Order Comment: Obie men Type: BLOOD SPECIMENOrdering Facility: [facility] Address: [address] [place] [address] Result Comment: Isabelle mated Glomerular Filtration Rate (eGFR) is calculated using the 2020 CKD-EPI creatinine equation. This equation utilizes serum creatinine, sex, and age as parameters. The creatinine assay has traceable calibration to isotope dilution-mass spectrometry. Refer to KDIGO guidelines for clinical interpretation. In patients with unstable renal function, e.g. those with acute kidney injury, the eGFR may not accurately reflect actual GFR. Performed By: #### 2 4323-8, 3 ####[facility] LABORATORYCLIA [id number] [place] [address] [place] Glucose [Mass/Vol] 89 mg/dL Normal 74-99 [facility] Comment on above: Order Comment: Obie barger Type: BLOOD SPECIMENOrdering Facility: [facility] Address: [address] [place] [address] Result Comment: The [place] Diabetes Association (ADA) provides guidance for cutoff values for fasting glucose and random glucose. The ADA defines fasting as no caloric intake for at least 8 hours. Fasting plasma glucose results between 100 to 125 mg/dL indicate increased risk for diabetes (prediabetes). Fasting plasma glucose results greater than or equal to 126 mg/dL meet the criteria for diagnosis of diabetes. In the absence of unequivocal hyperglycemia, results should be confirmed by repeat testing. In a patient with classic symptoms of hyperglycemia or hyperglycemic crisis, random plasma glucose results greater than or equal to 200 mg/dL meet the criteria for diagnosis of diabetes. Reference: Standards of Medical Care in Diabetes 2016, [place] Diabetes Association. Diabetes Care. 2016.39(Suppl 1). Performed By: #### 2 4323-8, 3 ####[facility]ATORYCLIA [id number] [place] [address] [place] Potassium [Moles/Vol] 3.8 mmol/L Normal 3.7-5.1 [facility] Comment on above: Order Comment: Speci men Type: BLOOD SPECIMENOrdering Facility: [facility] Address: [address] [place] [address] Performed By: #### 2 4323-8, 3040-3 ####[facility]ORATORYCLIA [id number] [address] [place] Protein [Mass/Vol] 7.2 g/dL Normal 6.3-8.0 [facility] Comment on above: Order Comment: Speci men Type: BLOOD SPECIMENOrdering Facility: [facility] Address: [address] [place] [address] Performed By: #### 2 4323-8, 3040-3 ####[facility]ORATORYCLIA [id number] [address] Sodium [Moles/Vol] 138 mmol/L Normal 136-144 [facility] Comment on above: Order Comment: Speci men Type: BLOOD SPECIMENOrdering Facility: [facility] Address: [address] [place] [address] Performed By: #### 2 4323-8, 3040-3 ####[facility]ORATORYCLIA [id number] [place] [id number] [place] STATES OF [facility] Urea nitrogen [Mass/Vol] 21 mg/dL Normal 7-21 [facility] Comment on above: Order Comment: Speci men Type: BLOOD SPECIMENOrdering Facility: [facility] Address: [address] [place] [address] Performed By: #### 2 4323-8, 3040-3 ####[facility]ATORYCLIA [id number] [address] [place] ED NOTEon 09-07-2025 ED NOTE HNO ID: [id number] Author: EYAD DUMONT RN Service: ? Author Type: Registered Nurse Type: ED Notes Filed: 09/07/2025 20:50 Note Text: Bed: 09-ED Expected date: Expected time: Means of arrival: Comments: Trauma Transfer Normal [facility] ED PROV NOTEon 09-07-2025 ED PROV NOTE HNO ID: [id number] Author: TYLOR LOWE DO Service: Emergency Medicine Author Type: Physician Type: ED Provider Notes Filed: 09/07/2025 22:57 Note Text: Attending Note I personally saw and examined the patient. I reviewed the resident's note. I agree with the resident's assessment and plan unless otherwise noted. I was present for the significant portion of the procedure(s). Brief HPI: Sharon Love is a 84 year old female with a PMH as documented below who presents for evalu trauma evaluation. Patient transferred from [facility] with concern for bilateral subdural hemorrhage. Patient with a history of a fall in mid July. She had negative trauma imaging at that time. About 1 week ago she had a similar fall but landed on her buttocks. She was found to have a fracture of the sacrum, but did not have imaging performed of her head at that time. Patient states that over the last few weeks she has had intermittent headaches worsening today. Yesterday she noticed an unsteady gait and subsequent presented to the outlying facility. Patient states that she takes a baby aspirin daily but denies any other long-term antiplatelet or anticoagulation use. Denied any blurry vision, vision changes, numbness or weakness in her extremities. Patient was found to have bilateral subdural hematomas of unknown known chronicity. Patient subsequently sent here for further evaluation. PAST MEDICAL HISTORY Diagnosis Date CAD (coronary artery disease) H/O heart artery stent HLD (hyperlipidemia) HTN (hypertension) NSTEMI (non-ST elevated myocardial infarction) (HCC) Vertigo Physical Exam: Patient awake alert and oriented x 3. Appears much younger than stated age. Lungs with normal respiratory effort. Heart with regular rate and rhythm. Abdomen soft and nontender. No extremity weakness. No sensory loss along the trunk, back or extremities. No confusion. Pleasantly interactive Plan: Plan for neurosurgery consultation given her bilateral subdural hemorrhage. We will discuss DDAVP. Patient with no evidence of herniation and neurologic exam is normal at this time. Trauma surgery will also be consulted for admission. See ED course and resident note for further details Note created using Dragon dictation software and there may be minor grammatical, word sequence or spelling errors. TYLOR LOWE 09/07/25 2257 Normal [facility] ED PROV NOTE HNO ID: [id number] Author: TYLOR LOWE DO Service: Critical Care Author Type: Resident Type: ED Provider Notes Filed: 09/08/2025 13:31 Note Text: Attestation signed by Tylor Lowe DO at 09/08/2025 1:31 PM Attending Note I evaluated the patient and personally participated in the negron components. I agree with the resident's findings and plan as documented and have discussed the case and management of the patient's care with the resident. See separate attending note. Critical Care I spent a total of 32 minutes of critical care time in the evaluation and management of this patient. 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 The patient received frequent reassessment and Consultation by trauma surgery and neurosurgery during the time that critical care was provided.I discussed the plan of care with the RESIDENT and agree with the findings documented. Critical care time excludes separately billed procedures. Tylor Lowe DO Signature: Tylor Lowe DO Date: 09/08/2025 Time: 1:31 PM ED Provider Note Patient Name: Sharon Love : 1940 SERVICE DATE: 09/07/25 History Patient presents with: Unsteady Gait: Per pt went to ED after having unsteady gait and recurrent headache past week. PT reports recents falls: 1 on Monday and 1 in July. Sent for trauma consult r/t BL subdural hematoms and sacral compression fx This is an 84-year-old female with past medical history of HTN, HLD, CAD, NSTEMI, and vertigo who presented as a transfer from [facility] for bilateral subdural hematomas and sacral compression fracture. Patient reports that she had 2 falls recently. Most recent fall was 1 week ago, and she reports she landed on her bottom and does not believe she hit her head or lost consciousness. At that time she was evaluated and had imaging that showed an S5 fracture, however no imaging of her head and neck were done at that time. Patient reports an earlier fall in July, at which time she developed a headache. CT scan of head was reportedly negative at that time. Patient continued to have this headache up until her fall last week, at which time it resolved. Today, patient states her headache returned She rates the headache a 5 out of 10. She states that she also developed unsteady gait today which prompted her to go back to the ED. Prior to this, patient has been ambulatory without pain. She denies loss of consciousness, seizures, lightheadedness, dizziness, focal weakness, slurred speech, chest pain, shortness of breath, nausea, or vomiting. She denies any other injury or pain from these falls. Denies pain in her bottom. Patient is not on OAC but does take aspirin, last dose at 8am. At [facility] CT head was done and showed bilateral intermediate density subdural hemorrhages with no midline shift or downward herniation. 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 used prisms for a while. surgery w/ benefit REMOVAL GALLBLADDER FAMILY HISTORY Problem Relation Age of Onset Cancer Mother Coronary Artery Disease Father Social History[1] ALLERGIES Allergen Reactions Metoprolol Unknown Penicillamine Ramxqia-Tph-Zkp Red* Unknown Review of Systems Respiratory: Negative for shortness of breath. Cardiovascular: Negative for chest pain. Gastrointestinal: Negative for abdominal pain, nausea and vomiting. Musculoskeletal: Positive for neck pain. Negative for back pain. Neurological: Positive for headaches. Negative for dizziness, seizures, syncope, weakness and light-headedness. Physical Exam Vitals [09/07/252050] BP Pulse Temp Temp src Resp SpO2 Weight Height 147/95 (!) 91 37 ?C (98.6 ?F) Axillary (!) 11 97 % 49.4 kg (109 lb) 1.473 m (4' 10") Physical Exam Constitutional: General: She is not in acute distress. Appearance: Normal appearance. She is not ill-appearing, toxic-appearing or diaphoretic. HENT: Head: Normocephalic and atraumatic. Mouth/Throat: Mouth: Mucous membranes are moist. Pharynx: Oropharynx is clear. Eyes: Extraocular Movements: Extraocular movements intact. Conjunctiva/sclera: Conjunctivae normal. Pupils: Pupils are equal, round, and reactive to light. Neck: Comments: Arrived with c-collar in place. Cardiovascular: Rate and Rhythm: Normal rate and regular rhythm. Pulses: Normal pulses. Heart sounds: Normal heart sounds. Pulmonary: Effor (more content not included)... Normal [facility] Emergency Department Summary on 09-07-2025 Emergency Department Summary [facility] Medical Records Department [address] [place] [address] Emergency Department Summary 09/07/25 MR#: [id number] Acct: [id number] Name: SHARON LOVE Rep #: [id number] : 1940 84 From: Juan José Barahona MD PCP: Dr. Joe Carey MD Status:REG ER Location: ED ADDENDUM by Dr. Juan José Barahona MD on 09/07/25 at 1851 EKG reveals a normal sinus rhythm rate 88. There is premature ventricular complexes noted. AR interval is 120 ms. Cures duration 108 ms. QT durations 190 ms. [place] is to the left. 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 Patient has minimal voltage criteria for LVH or may be normal variant. 09/07/25 185 Cosigner Signature (if applicable): cc: Dr. Joe Carey MD * Signed HPI History of Present Illness Chief Complaint: Weakness Detail of Chief Complaint: Unable to walk since last evening, headache, slight confusion Informant: patient and family Onset/Context/Timing Onset: Yesterday Context: Sudden Onset Timing: Continuous Quality: Acute neurologic symptoms Location: Neurologic Current Severity: Moderate Maximum Severity: Moderate Worsened by: Nothing Relieved by: Nothing Associated Symptoms Associated Symptoms: Difficulty ambulating, decreased level of consciousness and headache Narrative Narrative: Patient is a 84-year-old woman. She was seen August 01 after head trauma. CAT scan was negative. She was seen September 02 and had x-rays of her LS spine and sacrum. She had an S5 compression fracture. CT of the head was not obtained since she denied headache, head trauma and is only on a baby aspirin. She presents because of difficulty ambulating since yesterday. She complains of headache that is essentially global. She denies double vision, blurred vision loss of vision or double vision. She denies ringing or ears or decreased hearing. No trouble with speech or swallowing. She denies cardiac respiratory symptoms. She denies abdominal pain, nausea, vomiting or diarrhea. She denies any urologic symptoms. She denies flank pain. Patient is unable to ambulate without assistance. Prior similar symptoms: No Recent Illness/Hospitalizatio n: [facility] Medical History Abnormal bruising Myocardial infarct Essential hypertension Unstable angina Sensorineural hearing loss Dehydration Hypokalemia HLD (hyperlipidemia) Vertigo Intractable nausea and vomiting Home Medications ???Medication ???Instructions ???Recorded ???Last Taken ???Type aspirin 81 mg chewable tablet 81 mg PO QHS heart health 02/15/14 08/01/25 History glucosamine sulfate 2KCl 500 mg 1,000 mg PO BID supplement 4 08/01/25 History capsule (Glucosamine Relief) multivitamin with folic acid 400 1 tab PO DAILY supplement 02/15/14 08/01/25 History mcg tablet (Thera) losartan 100 mg tablet 100 mg PO QHS Pt going out of 08/2008/01/25 Rx state for 3 months #90 tabs calcium carbonate (Calcium 600) 600 mg PO DAILY 06/19/24 08/01/25 History cholecalciferol (vitamin D3) 25 25 mcg PO DAILY 06/19/24 08/01/25 History mcg (1,000 unit) tablet collagen 1,000 mg PO BID 06/19/24 08/01/25 History vitamin E 670 mg (1,000 unit) 670 mg PO DAILY 06/19/24 08/01/25 History capsule coffee extract 100 mg-phosphatidyl cap PO 03/27/25 08/01/25 History serine 100 mg capsule (Neuriva Original) hydrochlorothiazide 12.5 mg tablet 12.5 mg PO DAILY #90 tabs 08/01/25 Rx phytosterol 300 mg-pantethine 100 1 cap PO BID 03/27/25 Unknown His tory mg capsule (CholestOff Complete) metoprolol succinate 25 mg 25 mg PO QHS #90 tabs 04/04/2504/20 Rx tablet,extended release 24 hr amlodipine 2.5 mg tablet 5 mg PO DAILY blood pressure 08/0108/01/25 History nitroglycerin 0.4 mg sublingual 0.4 mg sublingual Q5M PRN Chest Unknown Rx tablet pain #30 tabs Allergy/AdvReac Type Severity Reaction Status Date / Time Rgcmxkr-BIO-BgP Reductase Allergy Severe Pain in Verified 09/07/25 16:54 Inhibitor joints Penicillins Allergy Unknown Verified 09/07/25 16:54 metoprolol AdvReac Intermediate Other Verified 09/07/25 16:54 Family History Sister Pacemaker Father CVA (cerebral vascular accident) Surgical History History of cholecystectomy History of coronary artery stent placement (12/09/22) H/O: hysterectomy Social History Smoking Status: Never smoker alcohol intake: never substance use type: does not use caffeine: No ROS ROS ED Constitutional Constitutional ED: Denies chills, fever(s), subjective, sweats or weight loss Eyes Eyes (more content not included)... Normal [facility] Ethanol [facility] 025 Ethanol [Mass/Vol] mg/dL Normal <11 [facility] Comment on above: Order Comment: Speci men Type: BLOOD SPECIMENOrdering Facility: [facility] Address: [address] [place] [address] Performed By: #### 5 643-2 ####[facility] LABORATORYCLIA [id number] [place] [address] [place] HISTORY PHYSICALon HISTORY PHYSICAL HNO ID: [id number] Author: NICK TAO MD Service: General Surgery Author Type: Physician Type: H&P Filed: 09/08/2025 09:36 Note Text: TRAUMA SURGERY HANDP [facility] ARRIVAL DATE: 09/07/2025 ARRIVAL TIME: 9:59 PM CATEGORY: transfer INJURY DATE: 09/02/2025 INJURY TIME: Prior to arrival Subjective 84 year old female PMH HTN, HLD, remote roscoe and hysterectomy. She presents to [facility] as a trauma transfer with concern for bilateral subdural hematoma following GLF on 09/02. Patient initially presented to [facility] on 09/02 following a mechanical ground-level fall causing her to her land backwards on her buttocks. She states that she never struck her head or lost any consciousness during this episode. She subsequently went to sleep but then presented to [facility] after ongoing low back pain. She had x-rays of her lumbar spine and sacrum which were notable for S5 acute minimally depressed fracture of the anterior cortex of S5 vertebral body. Given she did not complain of hitting her head and was denying injuries to any other portion of her body, she was discharged home with plans for outpatient follow-up for her sacral fracture. However, throughout the week her family noted that she had some gait instability and some mild mental status changes although she remained Aox3. This prompted evaluation at [facility] again where she was scanned with CT head notable for bilateral subdural hematoma. This then prompted transfer to [facility]. She denies any pain currently and her secondary exam is negative for any obvious signs of external trauma. She has a mild headache but is neuromotor intact without any clear neurologic deficits although family and her report gait stability. She also notes a fall off a treadmill roughly 1 month ago but did not report any symptoms following that. HPI/CHIEF COMPLAINT: GLF BRIEF DESCRIPTION OF INJURIES: See HPI LAST FLUIDS/MEAL: unknown CODE STATUS: Discussed with daughter and patient ALLERGIES Allergen Reactions Metoprolol Unknown Penicillamine Srqxoxc-Ehc-Vae Red* Unknown Prescriptions Prior to Admission[1] DATE OF LAST TETANUS: unknown Immunization History Administered Date(s) Administered COVID-19 original vaccine, age 12+ yr, monovalent (C4X Discovery - PURPLE TOP) 02/08/2021 03/01/2021 11/10/2021 PAST MEDICAL HISTORY Diagnosis Date HLD (hyperlipidemia) HTN (hypertension) PAST SURGICAL HISTORY Procedure Laterality Date ANESTH, HYSTERECTOMY CATARACT EXTRACTION HX Bilateral 2002, 2010 CHOLECYSTECTOMY PAST SURGICAL HISTORY OF Right 2016 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 used prisms for a while. surgery w/ benefit SOCIAL HISTORY[2] FAMILY HISTORY Problem Relation Age of Onset Cancer Mother Coronary Artery Disease Father ROS: Is the patient having any pain? Yes Mild headache Constitutional: Negative Eye/Ear/Nose: Negative Respiratory: Negative Cardiovascular: Negative GI/Liver/Biliary: Negative Genitourinary: Negative Psychiatric: Negative Neurologic: Negative Musculoskeletal: Negative Integument: Negative Endocrine: Negative Heme/Lymph: Negative Objective PRIMARY SURVEY AIRWAY: Patent BREATHING: Breath sounds equal CIRCULATION: PT/DP 2, Radials 2, Femoral 2 DISABILITY: Eye: 4=Spontaneous Verbal: 5=Oriented and Converses Motor: 6=Obeys Commands Total GCS: 15=4 Resp Rate: 10 to 29=4 Syst BP: > than 89=4 REVISED TRAUMA SCORE: 12 EXPOSE / ENVIRONMENT: Warm Blankets PROCEDURES: None SECONDARY SURVEY VITALS: 09/07/252050 BP: 147/95 Pulse: (!) 91 Resp: (!) 11 Temp: 37 ?C (98.6 ?F) TempSrc: Axillary SpO2: 97% Weight: 49.4 kg (109 lb) Height: 147.3 cm (4' 10") NEURO: Alert AND Oriented x 3, GCS 15, Cranial Nerves II-XII grossly Intact, Moves All Extremities, Strength Symmetrical, No Sensory Deficits. HEENT: Head: No lacerations or abrasions, no bony step-offs, midface stable to palpation. Eyes: PERRL, conjunctiva/corneas without lesions, EOMI. Ears: Canals without blood or CSF drainage, TMs clear, external ears without lacerations. Nose: Septum midline, no crepitus with motion. Throat: Oral mucosa without lacerations, teeth in place, tongue without lacerations. NECK: No midline pain with palpation, no lacerations/wounds, trachea midline. RESPIRATORY: No abrasions or contusions, no crepitus, chest wall without ttp, equal excursion. Unlabored breathing on RA CARDIOVASCULAR: regular rate, good perfusion throughout ABDOMEN: Soft, non-distended, non-tender, no scars or lacerations, no rebound or guarding. No masses or organomegaly. PELVIC/PERINEAL: Pelvis stable to palpation, no blood noted at urethra meatus, gluteal contraction intact. BACK/SPINE: Thoracolumbar spinal column non-tender, no step-off or deformity noted, no external injury noted. Mild sacral TTP. EXTREMITIES: Arm/shoulder normal bilaterally, forearm/elbow normal bilaterally, galeana (more content not included)... Normal [facility] Lipase SerPl-cCncon 09-07-20 25 Lipase [Catalytic activity/Vol] 31 U/L Normal 16-61 [facility] Comment on above: Order Comment: Obie barger Type: BLOOD SPECIMENOrdering Facility: [facility] Address: [address] [place] [address] Performed By: #### 2 4323-8, 3040-3 ####[facility] LABORATORYCLIA [id number] [address] STATES OF [facility] PT panel Coag (PPP)on 2024 INR Coag (PPP) [Relative time] 1.0 {INR} Normal 0.9-1.3 [facility] Comment on above: Order Comment: Obie barger Type: BLOOD SPECIMENOrdering Facility: [facility] Address: [address] [place] [address] Result Comment: Zahraa min K Antagonist (VKA) Therapeutic Range: INR 2 to 3 (Target INR of 2.5) Note: For patients treated with VKA drugs, such as warfarin, the [place] [employer] 2012 Guideline recommends a therapeutic INR range of 2 to 3 (target INR of 2.5). This recommendation includes high-risk patients with antiphospholipid syndrome with previous arterial or venous thromboembolism, current-generation mechanical or bioprosthetic aortic heart valve replacement. Note: Patients with mechanical aortic valve replacement and additional risk factors for thromboembolic events (atrial fibrillation, previous thromboembolism, LV dysfunction, hypercoagulable conditions) or an older generation mechanical AVR (i.e., ball in-Cage) or any mechanical MVR should have a INR therapeutic range of 2.5 to 3.5 (target INR of 3). Guyatt GH, et al. Chest 2012, 141:7S-47S Henry RA, et al. [facility] 2017, 70: 252-289 Performed By: #### 3 4528-0, 65991-4 ####[facility] LABORATORYCLIA [id number] [place] [address] [place] PT Coag (PPP) [Time] 10.9 s Normal 9.7-13.0 [facility] Comment on above: Order Comment: Speci men Type: BLOOD SPECIMENOrdering Facility: [facility] Address: [address] [place] [address] Performed By: #### 3 4528-0, 97195-3 ####[facility] LABORATORYCLIA [id number] [place] [address] [place] Partial Thromboplast Timeon 09-07-2025 aPTT Coag (Bld) [Time] 25.0 s Normal 24.1-36.2 [facility] Comment on above: Performed By: #### L 300.3900, L300.4310 ####[facility] [address] [place], [address] Prothrombin Time w/INRon INR Coag (PPP) [Relative time] 0.9 {INR} Normal [facility] Comment on above: Performed By: #### L 300.3900, L300.4310 ####[facility] [address] [place], [address] PT Coag (PPP) [Time] 12.8 s Normal 11.7-14.9 [facility] Comment on above: Performed By: #### L 300.3900, L300.4310 ####[facility] [address] [place], [address] STAPHYLOCOCCUS AUREUS AND MR SA SCREEN, PCR, NASALon 09-07-2025 S. aureus and MRSA panel DYLAN+probe (Nose) Not detected Normal Not Detected [facility] Comment on above: Order Comment: Speci men Type: SWABOrdering Facility: [facility] Address: [address] [place] [address] Performed By: #### S APCR ####[facility] LABORATORYCLIA [id number] [address] TOXICOLOGY SCREEN, ROUTINE U RINEon 09-07-2025 Amphetamines Confirm (U) [Mass/Vol] Negative Normal Negative [facility] Comment on above: Order Comment: Speci men Type: URINE SPECIMENOrdering Facility: [facility] Address: [address] [place] [address] Result Comment: Cuto ff threshold at 1000 ng/mL. Performed By: #### U TOX2 ####[facility]ORATORYCLIA [id number] [address] [place] BARBITURATES, URINE Negative Normal Negative [facility] Comment on above: Order Comment: Speci men Type: URINE SPECIMENOrdering Facility: [facility] Address: [address] [place] [address] Result Comment: Cuto ff threshold at 200 ng/mL. Performed By: #### U TOX2 ####[facility] LABORATORYCLIA [id number] [address] [place] BENZODIAZEPINES, URINE Negative Normal Negative [facility] Comment on above: Order Comment: Speci men Type: URINE SPECIMENOrdering Facility: [facility] Address: [address] [place] [address] Result Comment: Cuto ff threshold at 200 ng/mL. Performed By: #### U TOX2 ####[facility]ORATORYCLIA [id number] [address] [place] Cannabinoids Screen Ql (U) Negative Normal Negative [facility] Comment on above: Order Comment: Speci men Type: URINE SPECIMENOrdering Facility: [facility] Address: [address] [place] [address] Result Comment: Cuto ff threshold at 50 ng/mL. Performed By: #### U TOX2 ####[facility]ORATORYCLIA [id number] [facility] [address] [address] Cocaine Ql (U) Negative Normal Negative [facility] Comment on above: Order Comment: Speci men Type: URINE SPECIMENOrdering Facility: [facility] Address: [address] [place] [address] Result Comment: Cuto ff threshold at 300 ng/mL. Performed By: #### U TOX2 ####[facility] LABORATORYCLIA [id number] [address] Ethanol (U) [Mass/Vol] <11 Normal <[address] [facility] Comment on above: Order Comment: Speci men Type: URINE SPECIMENOrdering Facility: [facility] Address: [address] [place] [address] Performed By: #### U TOX2 ####[facility] LABORATORYCLIA [id number] [address] fentaNYL Screen Ql (U) Negative Normal Negative [facility] Comment on above: Order Comment: Speci men Type: URINE SPECIMENOrdering Facility: [facility] Address: [address] [place] [address] Result Comment: Cuto ff threshold at 5 ng/mL. Performed By: #### U TOX2 ####[facility] LABORATORYCLIA [id number] [address] Opiates Screen Ql (U) Negative Normal Negative [facility] Comment on above: Order Comment: Speci men Type: URINE SPECIMENOrdering Facility: [facility] Address: [address] [place] [address] Result Comment: Cuto ff threshold at 300 ng/mL. Performed By: #### U TOX2 ####[facility] LABORATORYCLIA [id number] [address] oxyCODONE cutoff Screen (U) [Mass/Vol] Negative Normal Negative [facility] Comment on above: Order Comment: Speci men Type: URINE SPECIMENOrdering Facility: [facility] Address: [address] [place] [address] Result Comment: Cuto ff threshold at 100 ng/mL. Performed By: #### U TOX2 ####[facility] LABORATORYCLIA [id number] [address] [place] Phencyclidine Ql (U) Negative Normal Negative [facility] Comment on above: Order Comment: Speci men Type: URINE SPECIMENOrdering Facility: [facility] Address: [address] [place] [address] Result Comment: Cuto ff threshold at 25 ng/mL. Performed By: #### U TOX2 ####[facility] LABORATORYCLIA [id number] [address] OF [place] TYPE + SCREENon 09-07-2025 ABO O Normal [facility] Comment on above: Order Comment: Speci men Type: BLOOD SPECIMENOrdering Facility: [facility] Address: [address] [place] [address] Performed By: #### T SCR ####[facility] BLOOD BANKCLIA [id number] [address] [place] Rh Nom (Bld) Positive Normal [facility] Comment on above: Order Comment: Speci men Type: BLOOD SPECIMENOrdering Facility: [facility] Address: [address] [place] [address] Performed By: #### T SCR ####[facility] BLOOD BANKCLIA [id number] [address] TYPE AND SCREEN EXPIRATION 09/10/2025 23:59 Normal [facility] Comment on above: Order Comment: Speci men Type: BLOOD SPECIMENOrdering Facility: [facility] Address: [address] [place] [address] Performed By: #### T SCR ####[facility] BLOOD BANKCLIA [id number] [address] OF [place] aPTT PPPon 09-07-2025 aPTT Coag (PPP) [Time] 25.1 s Normal 23.0-32.[address] [facility] Comment on above: Order Comment: Speci men Type: BLOOD SPECIMENOrdering Facility: [facility] Address: [address] [place] [address] Performed By: #### 3 4528-0, 78167-0 ####[facility] LABORATORYCLIA [id number] [place] [address] [place] CBC W/Diff, Automatedon 10-0 7-2024 Absolute Lymph 1.14 X10 3/uL Normal 0.83-4.51 [facility] Comment on above: Performed By: #### L 100.0100, L501.5200 ####[facility] [address] [place], [address] Absolute Neut 6.4 X10 3/uL Normal 2.0-7.7 [facility] Comment on above: Performed By: #### L 100.0100, L501.5200 ####[facility] [address] [place], [address] Basophils/100 WBC (Bld) 0.5 % Normal 0-1 [facility] Comment on above: Performed By: #### L 100.0100, L501.5200 ####[facility] [address] [place], [address] Eosinophils/100 WBC (Bld) 1.5 % Normal 0-5 [facility] Comment on above: Performed By: #### L 100.0100, L501.5200 ####[facility] [address] [place], [address] Erythrocyte distribution width (RBC) [Ratio] 13.0 % Normal 11.6-14.6 [facility] Comment on above: Performed By: #### L 100.0100, L501.5200 ####[facility] [address] [place], [address] Hematocrit (Bld) [Volume fraction] 36.8 % Low 37-47 [facility] Comment on above: Performed By: #### L 100.0100, L501.5200 ####[facility] [address] [place], [address] Hemoglobin (Bld) [Mass/Vol] 12.3 g/dL Normal 12.0-15.0 [facility] Comment on above: Performed By: #### L 100.0100, L501.5200 ####[facility] [address] [place], [address] IG% 0.400 Normal 0.0-0.9 [facility] Comment on above: Result Comment: IG% - Immature Granulocytes (promyelocytes, myelocytes and metamyelocytes) > 1% indicates that a LEFT SHIFT is Present. Performed By: #### L 100.0100, L501.5200 ####[facility] [address] [place], [address] Lymphocytes/100 WBC (Bld) 13.6 % Low 19-41 [facility] Comment on above: Performed By: #### L 100.0100, L501.5200 ####[facility] [address] [place], [address] MCH (RBC) [Entitic mass] 31.0 pg Normal 27.0-32.0 [facility] Comment on above: Performed By: #### L 100.0100, L501.5200 ####[facility] [address] [place], [address] MCHC (RBC) [Mass/Vol] 33.4 g/dL Normal 32-36 [facility] Comment on above: Performed By: #### L 100.0100, L501.5200 ####[facility] [address] [place], [address] MCV (RBC) [Entitic vol] 92.7 fL Normal 81-99 [facility] Comment on above: Performed By: #### L 100.0100, L501.5200 ####[facility] [address] [place], [address] Monocytes/100 WBC (Bld) 8.4 % Normal 0-10 [facility] Comment on above: Performed By: #### L 100.0100, L501.5200 ####[facility] [address] [place], [address] Neutrophils/100 WBC (Bld) 75.6 % High 47-70 [facility] Comment on above: Performed By: #### L 100.0100, L501.5200 ####[facility] [address] [place], [address] Nucleated RBC (Bld) [#/Vol] 0 10*3/uL Normal 0-5 [facility] Comment on above: Performed By: #### L 100.0100, L501.5200 ####[facility] [address] [place], [address] Platelet mean volume (Bld) [Entitic vol] 10.0 fL Normal 6.2-12.0 [facility] Comment on above: Performed By: #### L 100.0100, L501.5200 ####[facility] [address] [place], [address] Platelets (Bld) [#/Vol] 275 10*3/uL Normal 150-450 [facility] Comment on above: Performed By: #### L 100.0100, L501.5200 ####[facility] [address] [place], [address] RBC (Bld) [#/Vol] 3.97 10*6/uL Low 4.2-5.4 [facility] Comment on above: Performed By: #### L 100.0100, L501.5200 ####[facility] [address] [place], [address] RDW SD 44.2 fl High 35.1-43.9 [facility] Comment on above: Performed By: #### L 100.0100, L501.5200 ####[facility] [address] [place], [address] WBC (Bld) [#/Vol] 8.4 10*3/uL Normal 4.4-11.0 [facility] Comment on above: Performed By: #### L 100.0100, L501.5200 ####[facility] [address] [place], [address] Emergency Department Summary on 09-02-2025 Emergency Department Summary [facility] Medical Records Department [address] [place] [address] Emergency Department Summary 09/02/25 MR#: [id number] Acct: [id number] Name: SHARON LOVE Rep #: [id number] : 1940 84 From: Virgil Bazzi DO PCP: Dr. Joe Carey MD Status:DEP ER Location: ED HPI History of Present Illness Chief Complaint: Fall Informant: patient and spouse/S.O. Narrative Narrative: Patient is 84-year-old female with past medical history of hypertension and hyperlipidemia. She states around 930 last night she got up from her chair in order to walk to her bedroom to go to sleep. She states she lost her balance and fell landing directly on her buttocks and then rolling backwards. She denies striking her head or any loss of consciousness. She denies any history of bleeding disorder or blood thinner use. She states she was able to go to sleep and then awoke to go to the bathroom. She states after using the restroom as she was going back to her bed she had increasing pain to her low back. She states the pain does not radiate but with the recent fall and now pain there was concern for internal injury/fracture and therefore she presents for evaluation. [facility] Medical History Abnormal bruising Myocardial infarct Essential hypertension Unstable angina Sensorineural hearing loss Dehydration Hypokalemia HLD (hyperlipidemia) Vertigo Intractable nausea and vomiting Home Medications ???Medication ???Instructions ???Recorded ???Last Taken ???Type aspirin 81 mg chewable tablet 81 mg PO QHS heart health 02/15/14 08/01/25 History glucosamine sulfate 2KCl 500 mg 1,000 mg PO BID supplement 4 08/01/25 History capsule (Glucosamine Relief) multivitamin with folic acid 400 1 tab PO DAILY supplement 02/15/14 08/01/25 History mcg tablet (Thera) losartan 100 mg tablet 100 mg PO QHS Pt going out of 08/2008/01/25 Rx state for 3 months #90 tabs calcium carbonate (Calcium 600) 600 mg PO DAILY 06/19/24 08/01/25 History cholecalciferol (vitamin D3) 25 25 mcg PO DAILY 06/19/24 08/01/25 History mcg (1,000 unit) tablet collagen 1,000 mg PO BID 06/19/24 08/01/25 History vitamin E 670 mg (1,000 unit) 670 mg PO DAILY 06/19/24 08/01/25 History capsule coffee extract 100 mg-phosphatidyl cap PO 03/27/25 08/01/25 History serine 100 mg capsule (Neuriva Original) hydrochlorothiazide 12.5 mg tablet 12.5 mg PO DAILY #90 tabs 08/01/25 Rx phytosterol 300 mg-pantethine 100 1 cap PO BID 03/27/25 Unknown His tory mg capsule (CholestOff Complete) metoprolol succinate 25 mg 25 mg PO QHS #90 tabs 04/04/2504/20 Rx tablet,extended release 24 hr amlodipine 2.5 mg tablet 5 mg PO DAILY blood pressure 08/0108/01/25 History nitroglycerin 0.4 mg sublingual 0.4 mg sublingual Q5M PRN Chest Unknown Rx tablet pain #30 tabs evolocumab 140 mg/mL subcutaneous 140 mg subcut Q2W #2 mL 08/27/25 Unknown Rx syringe (Repatha Syringe) Allergy/AdvReac Type Severity Reaction Status Date / Time Jzuaofi-VJI-SiK Reductase Allergy Severe Pain in Verified 09/02/25 02:28 Inhibitor joints Penicillins Allergy Unknown Verified 09/02/25 02:28 metoprolol AdvReac Intermediate Other Verified 09/02/25 02:28 Family History Sister Pacemaker Father CVA (cerebral vascular accident) Surgical History History of cholecystectomy History of coronary artery stent placement (12/09/22) H/O: hysterectomy Social History Smoking Status: Never smoker alcohol intake: never substance use type: does not use caffeine: No ROS ROS ED Constitutional Constitutional ED: Denies chills or fever(s) Eyes Eyes: Denies blurry vision or change in vision ENT ENT ED: Denies sore throat Cardiovascular Cardiovascular: Reports other Details: Negative syncope ; Denies chest pain Respiratory/Chest Respiratory/Chest: Denies cough or dyspnea Gastrointestinal Gastrointestinal: Denies abdominal pain, diarrhea, nausea or vomiting Genitourinary Genitourinary ED: Denies dysuria Musculoskeletal Musculoskeletal: Reports back pain; Denies neck pain Integumentary Denies Abrasions Neurologic Neurologic: Denies headache(s), paresthesias or weakness Hematologic/Lymphatic Hematologic/Lymphatic: Denies easy bleeding or easy bruising EXAM Physical Exam Const Vital Signs: 09/02/25 02:28 09/02/25 02:31 09/02/25 04:49 Temperature 98.5 F 97.7 F L Temperature Source Oral Pulse Rate 76 70 Respiratory Rate 15 16 Respiratory Effort Normal Respiratory Depth Normal Resp (more content not included)... Normal [facility] Lumbar Spine 2 or 3 Viewson 09-02-2025 Lumbar Spine 2 or 3 Views [facility] Imaging Services [facility] [place], [place] [address] Lumbar Spine 2 or 3 Views MR#: [id number] Acct: [id number] Name: SHARON LOVE Rep #: [id number] : 1940 F 84 From: Yolanda kamara MD PCP: Dr. Joe Carey MD Status: REG ER Study: Lumbar Spine 2 or 3 Views Date of Exam: Exam# [id number] Ordering Dr: Virgil Bazzi DO PROCEDURE: LUMBAR SPINE 2 OR 3 VIEWS 09/02/2025 REASON FOR EXAM: FALL TECHNIQUE: Procedure Code: RADSPLL Modality: DX Procedure: LUMBAR SPINE 2 OR 3 VIEWS COMPARISON: None. FINDINGS: Mild osteopenia. Mild degenerative levoscoliosis apex at L3. Metallic clips are noted in the right upper quadrant. Mild amount of fecal residue in the large bowels. There are diffuse spondylotic changes. Findings are demonstrated to by diffuse disc space narrowing, osteophyte formation and degenerative endplate sclerosis. There is diffuse facet joint arthropathy with secondary bilateral neural foramina narrowing. No fracture or dislocation is seen. No aggressive lytic or blastic bony lesion is noted. RAD/Lumbar Spine 2 or 3 Views IMPRESSION: No evidence for acute abnormality. Reading Location: [place] [address] CC: Dr. Joe Carey MD; Virgil Bazzi DO Threat Monitoring Analyst: Signed Normal [facility] Magnesiumon 09-02-2025 Magnesium [Mass/Vol] 2.2 mg/dL Normal 1.5-2.2 [facility] Comment on above: Performed By: #### L 100.0100, L501.5200 ####[facility] [address] [facility] [place], [address] Sacrum-Coccyx min 2 Viewson 09-02-2025 Sacrum-Coccyx min 2 Views [facility] Imaging Services [address] [place] [address] Sacrum-Coccyx min 2 Views MR#: [id number] Acct: [id number] Name: SHARON LOVE Rep #: [id number] : 1940 F 84 From: Yolanda kamara MD PCP: Dr. Joe Carey MD Status: REG ER Study: Sacrum-Coccyx min 2 Views Date of Exam: Exam# [id number] Ordering Dr: Virgil Bazzi DO PROCEDURE: SACRUM-COCCYX MIN 2 VIEWS 09/02/2025 REASON FOR EXAM: FALL TECHNIQUE: Procedure Code: RADSAC Modality: DX Procedure: SACRUM-COCCYX MIN 2 VIEWS FINDINGS: Interval appearance of acute minimally depressed fracture of the anterior cortex of S5 vertebral body. No subsequent canal stenosis. No secondary dislocation of the sacroiliac joints. 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 Moderate osteopenia. Mildly increased angulation at the level of the sacrococcygeal junction, chronic finding. Normal bilateral sacral ala. Normal coccygeal segments. RAD/Sacrum-Coccyx min 2 Views IMPRESSION: Interval appearance of acute minimally depressed fracture of the anterior cortex of S5 vertebral body. No subsequent canal stenosis. No secondary dislocation of the sacroiliac joints. 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 Moderate osteopenia. Reading Location: [facility] CC: Dr. Joe Carey MD; Virgil Bazzi DO Threat Monitoring Analyst: Signed Normal [facility] Bilirubin directOrdered By: Debra Goodman on 08-26-2025 Bilirubin.direct [Mass/Vol] 0.37 mg/dL High 0.00-0.30 [facility] Bilirubin, totalOrdered By: Debra Goodman on 08-26-2025 Bilirubin [Mass/Vol] 1.28 mg/dL 0.00-1.30 [facility] Calculated very low density lipoprotein (VLDL) cholesterol measurementOrdered By: Debra Goodman on 08-26-2025 Calculated very low density lipoprotein (VLDL) cholesterol measurement 57 mg/dL High 5-40 [facility] Cardiology Visit Reporton Cardiology Visit Report [facility] [address] [place] [address] OFFICE VISIT Date of Service: 08/26/25 MR#: [id number] Acct: [id number] Name: SHARON LOVE Rep #: [id number] : 1940 Provider: EPIFANIO Lane Age/Sex: 84/F Location: [facility] Status: Signed HPI HPI History of Present Illness Details: Sharon Love is an 84 year old female that presented to [facility] on December 08, 2022 with chest discomfort. She did undergo a urgent heart catheterization which demonstrated severe coronary artery disease involving the circumflex with the obtuse marginal and the main circumflex artery with significant stenosis noted. Moderate disease of the LAD. Patient underwent stenting to her OM 1 and mid circumflex. Metoprolol and Brilinta were added to patient's medications. She also has a history of hypertension and hyperlipidemia. She reports a recent fall from a treadmill, during which she struck her head. She was evaluated in the ED, where no acute findings were noted. Three days later, her PCP diagnosed a mild concussion without loss of consciousness. She denies chest pain, heaviness, tightness, or palpitations, but does note occasionally needing to take an extra breath while sitting or resting. She reports intermittent lower extremity edema, sometimes present in the morning, which she attributes to amlodipine. Current medications include amlodipine, losartan, aspirin, calcium, vitamin D, and glucosamine. She is no longer taking meclizine, which was previously prescribed for vertigo. She does not routinely monitor her blood pressure at home, but does so occasionally when she suspects it may be elevated. She has not used nitroglycerin and is no longer on dual antiplatelet therapy, remaining on aspirin only. Her most recent cholesterol level was 140 mg/dL, checked last year. Intake Vital Signs 06/19/24 14:17 03/27/25 07:43 08/01/25 09:39 08/26/25 11:38 08/26/25 11:40 Height 4 ft 11 in 4 ft 11 in 4 ft 11 in 4 ft 11 in Weight: 115 lb BP 111/68 Pulse 65 Intake Visit Reasons: 1 Y FU Allergies Drjfwxc-MNI-NqA Reductase Inhibitor Allergy (Severe, Verified 08/01/25 09:48) Pain in joints Penicillins Allergy (Verified 08/01/25 09:48) Unknown metoprolol Adverse Reaction (Intermediate, Verified 08/01/25 09:48) Other Medications ???Medication ???Instructions ???Recorded ???Confirmed ???Type aspirin 81 mg chewable tablet 81 mg PO QHS heart health 02/15/14 08/26/25 History glucosamine sulfate 2KCl 500 mg 1,000 mg PO BID supplement 4 08/26/25 History capsule (Glucosamine Relief) multivitamin with folic acid 400 1 tab PO DAILY supplement 02/15/14 08/26/25 History mcg tablet (Thera) losartan 100 mg tablet 100 mg PO QHS Pt going out of 08/2008/26/25 Rx state for 3 months #90 tabs calcium carbonate (Calcium 600) 600 mg PO DAILY 06/19/24 08/26/25 History cholecalciferol (vitamin D3) 25 25 mcg PO DAILY 06/19/24 08/26/25 History mcg (1,000 unit) tablet collagen 1,000 mg PO BID 06/19/24 08/26/25 History vitamin E 670 mg (1,000 unit) 670 mg PO DAILY 06/19/24 08/26/25 History capsule coffee extract 100 mg-phosphatidyl cap PO 03/27/25 08/26/25 History serine 100 mg capsule (Neuriva Original) hydrochlorothiazide 12.5 mg tablet 12.5 mg PO DAILY #90 tabs 08/26/25 Rx phytosterol 300 mg-pantethine 100 1 cap PO BID 03/27/25 08/26/25 Hi story mg capsule (CholestOff Complete) metoprolol succinate 25 mg 25 mg PO QHS #90 tabs 04/04/25 Rx tablet,extended release 24 hr amlodipine 2.5 mg tablet 5 mg PO DAILY blood pressure 08/0108/26/25 History nitroglycerin 0.4 mg sublingual 0.4 mg sublingual Q5M PRN Chest 08/26/25 Rx tablet pain #30 tabs Have you fallen in the past year?: [...] vision or transient loss of vision ENT (more content not included)... Normal [facility] LDL calc ser/plasOrdered By: Debra Goodman on 08-26-2025 Cholesterol in LDL [Mass/Vol] 111 mg/dL [facility] Comment on above: Yzknzposqv=744-389 m g/dL & Higher Tanb=100 mg/dL or greaterFriedwald Equation for LDL-C Laboratory - Chemistry and C hemistry - challengeOrdered By: Debra Goodman on 08-26-2025 AST [Catalytic activity/Vol] 26 U/L <32 [facility] Lipid Profileon 08-26-2025 CHOL:HDL 4.90 Normal [facility] Comment on above: Order Comment: Comme nts: okay to do non fasting Performed By: #### L 500.4100, L500.3400 ####[facility] [address] [place], [address] Cholesterol [Mass/Vol] 212 mg/dL High <=200 [facility] Comment on above: Order Comment: Comme nts: okay to do non fasting Result Comment: Chol esterol level, Desirable <200 mg/dL Borderline high cholesterol 200-239 mg/dL High cholesterol >=240 mg/dL Recommendations of the NCEP Adult Treatment Panel for the following risk-cutoff thresholds for the [place] population. Performed By: #### L 500.4100, L500.3400 ####[facility] [address] [place], [address] Cholesterol in HDL [Mass/Vol] 43 mg/dL Normal [facility] Comment on above: Order Comment: Comme nts: okay to do non fasting Result Comment: Jaylin onal Cholesterol Education Program (NCEP) guidelines: <40 mg/dL: Low HDL-cholesterol (major risk factor for CHD) >= 60 mg/dL: High HDL-cholesterol (negative risk factor for CHD) HDL-cholesterol is affected by a number of factors, e.g. smoking, exercise, hormones, sex and age. Performed By: #### L 500.4100, L500.3400 ####[facility] [address] [place], [address] Cholesterol in LDL [Mass/Vol] 111 mg/dL Normal [facility] Comment on above: Order Comment: Comme nts: okay to do non fasting Result Comment: Bord dzjjxi=570-245 mg/dL Higher Uxdb=309 mg/dL or greater Friedwald Equation for LDL-C Performed By: #### L 500.4100, L500.3400 ####[facility] [address] [place], [address] Cholesterol in VLDL [Mass/Vol] 57 mg/dL High 5-40 [facility] Comment on above: Order Comment: Comme nts: okay to do non fasting Performed By: #### L 500.4100, L500.3400 ####[facility] [address] [place], [address] Triglyceride [Mass/Vol] 287 mg/dL High [facility] Comment on above: Order Comment: Comme nts: okay to do non fasting Result Comment: The drugs N-Acetylcysteine and Metamizole may falsely depress this assay. Normal range: <150 mg/dL Borderline High: 150-199 mg/dL High: 200-499 mg/dL Very High: >500 mg/dL Performed By: #### L 500.4100, L500.3400 ####[facility] [address] [place], [address] Liver Profileon 08-26-2025 Albumin [Mass/Vol] 4.4 g/dL Normal 3.4-4.8 [facility] Comment on above: Order Comment: Comme nts: okay to do non fastingokay to do non fasting Performed By: #### L 500.4100, L500.3400 ####[facility] [address] [place], [address] ALK PHOS 76 U/L Normal 35-104 [facility] Comment on above: Order Comment: Comme nts: okay to do non fastingokay to do non fasting Performed By: #### L 500.4100, L500.3400 ####[facility] [address] [place], [address] ALT [Catalytic activity/Vol] 15 U/L Normal <=34 [facility] Comment on above: Order Comment: Comme nts: okay to do non fastingokay to do non fasting Performed By: #### L 500.4100, L500.3400 ####[facility] [address] [place], [address] AST [Catalytic activity/Vol] 26 U/L Normal <=31 [facility] Comment on above: Order Comment: Comme nts: okay to do non fastingokay to do non fasting Performed By: #### L 500.4100, L500.3400 ####[facility] [address] [place], [address] Bilirubin [Mass/Vol] 1.28 mg/dL Normal 0.00-1.30 [facility] Comment on above: Order Comment: Comme nts: okay to do non fastingokay to do non fasting Performed By: #### L 500.4100, L500.3400 ####[facility] [address] [place], [address] Bilirubin.direct [Mass/Vol] 0.37 mg/dL High 0.00-0.30 [facility] Comment on above: Order Comment: Comme nts: okay to do non fastingokay to do non fasting Performed By: #### L 500.4100, L500.3400 ####[facility] [address] [place], [address] Globulin (S) [Mass/Vol] 2.8 g/dL Normal 2.2-4.2 [facility] Comment on above: Order Comment: Comme nts: okay to do non fastingokay to do non fasting Performed By: #### L 500.4100, L500.3400 ####[facility] [address] [place], [place], [address] T PROT 7.3 g/dL Normal 5.9-8.4 [facility] Comment on above: Order Comment: Comme nts: okay to do non fastingokay to do non fasting Performed By: #### L 500.4100, L500.3400 ####[facility] [address] [place], [place], [address] Screening total cholesterol/ high density lipoprotein (HDL) cholesterol ratioOrdered By: Debra Goodman on 08-26-2025 Cholesterol.total/Choles terol in HDL [Mass ratio] 4.90 {ratio} [facility] Serum globulin measurementOr dered By: Debra Goodman on 08-26-2025 Globulin (S) [Mass/Vol] 2.8 g/dL 2.2-4.2 [facility] Serum or plasma alanine sepulveda otransferase (ALT) measurementOrdered By: Debra Goodman on 08-26-2025 ALT [Catalytic activity/Vol] 15 U/L <35 [facility] Serum or plasma albumin tyron urement (mass/volume)Ordered By: Debra Goodman on 08-26-2025 Albumin [Mass/Vol] 4.4 g/dL 3.4-4.8 [facility] Serum or plasma alkaline reva sphatase measurementOrdered By: Debra Goodman on 08-26-2025 ALP [Catalytic activity/Vol] 76 U/L 35-104 [facility] Serum or plasma cholesterol in HDL measurement (mass/volume)Ordered By: Debra Goodman on 08-26-2025 Cholesterol in HDL [Mass/Vol] 43 mg/dL >40 [facility] Comment on above: National Cholesterol Education Program (NCEP) guidelines:<40 mg/dL: Low HDL-cholesterol (major risk factor for CHD)>= 60 mg/dL: High HDL-cholesterol (negative risk factor for CHD)HDL-cholesterol is affected by a number of factors, e.g. smoking, exercise, hormones, sex and age. Serum or plasma cholesterol measurement (mass/volume)Ordered By: Debra Goodman on 08-26-2025 Cholesterol [Mass/Vol] 212 mg/dL High <201 [facility] Comment on above: Cholesterol level, D esirable <200 mg/dLBorderline high cholesterol 200-239 mg/dLHigh cholesterol >=240 mg/dLRecommendations of the NCEP Adult Treatment Panel for the following risk-cutoff thresholds for the [place] population. Total proteinOrdered By: Donato shaikh Maxine on 08-26-2025 Protein [Mass/Vol] 7.3 g/dL 5.9-8.4 [facility] Triglycerides measurementOrd ered By: Debra Maxine on 08-26-2025 Triglyceride [Mass/Vol] 287 mg/dL High <199 [facility] Comment on above: The drugs N-Acetylcy steine and Metamizole may falsely depress this assay. Normal range: <150 mg/dLBorderline High: 150-199 mg/dLHigh: 200-499 mg/dLVery High: >500 mg/dL Brain/Head without Contrasto n 08-01-2025 Brain/Head without Contrast [facility] Imaging Services [address] [place], [place] [address] Brain/Head without Contrast MR#: [id number] Acct: [id number] Name: SHARON LOVE Rep #: [id number] : 1940 F 84 From: Carlos Alberto Gallardo MD PCP: Dr. Joe Carey MD Status: PRE ER Study: Brain/Head without Contrast Date of Exam: 04/20 Exam# [id number] Ordering Dr: Grzegorz Jamison DO PROCEDURE: BRAIN/HEAD WITHOUT CONTRAST 08/01/2025 REASON FOR EXAM: FALL TECHNIQUE: Procedure Code: CTBR Modality: CT Procedure: BRAIN/HEAD WITHOUT CONTRAST Coronal and Sagittal reconstruction series were provided. One or more dose reduction techniques were used (e.g., Automated exposure control, adjustment of the mA and/or kV according to patient size, use of iterative reconstruction technique. RADIATION DOSE SUMMARY: CTDlvol: Not provided mGy DLP: Not provided mGycm COMPARISON: May 28, 2025 FINDINGS: Brain: There is no evidence of hemorrhage, acute ischemia or mass. No extra-axial fluid collection, midline shift or mass effect. Small focus of hypodensity in the guillen radiata on the left anteriorly. CSF Spaces: Mild generalized cerebral atrophy Sinuses/Mastoids: Clear Bones: No fracture CT/Brain/Head without Contrast IMPRESSION: 1. No evidence of intracranial hemorrhage or acute ischemia. 2. Changes of chronic microvascular ischemia and volume loss. Reading Location: [id number] CC: Dr. Joe Carey MD; Dr. Grzegorz Jamison DO Threat Monitoring Analyst: Signed Normal [facility] Emergency Department Summary on 08-01-2025 Emergency Department Summary [facility] Medical Records Department [address] [place] [id number] Emergency Department Summary 08/01/25 MR#: [id number] Acct: [id number] Name: SHARON LOVE Rep #: [id number] : 1940 84 From: Grzegorz Jamison DO PCP: Dr. Joe Carey MD Status:REG ER Location: ED HPI History of Present Illness Chief Complaint: Fall Narrative Narrative: Patient is a 84-year-old female with past medical history of vertigo, hyperlipidemia, hypertension who presented to the emergency department the chief complaint of head injury. Patient states that she was working out at [employer] and she was attempting to get off the treadmill when she was heading the wrong button to stop this and this caused her to fall strike the right side of her head. States that a family member is in the hospital currently with a head bleed and she is concerned about this therefore she came here to be evaluated. Patient denies any blood thinning medications. Patient states that she did not lose consciousness she members entire event and has no other pain. States that she does feel little bit off balance however she states that she has a history of vertigo and this feels similar to her vertigo. [facility] Medical History Abnormal bruising Myocardial infarct Essential hypertension Unstable angina Sensorineural hearing loss Dehydration Hypokalemia HLD (hyperlipidemia) Vertigo Intractable nausea and vomiting Home Medications ???Medication ???Instructions ???Recorded ???Last Taken ???Type aspirin 81 mg chewable tablet 81 mg PO QHS heart health 02/15/14 08/01/25 History glucosamine sulfate 2KCl 500 mg 1,000 mg PO BID supplement 4 08/01/25 History capsule (Glucosamine Relief) multivitamin with folic acid 400 1 tab PO DAILY supplement 02/15/14 08/01/25 History mcg tablet (Thera) nitroglycerin 0.4 mg sublingual 0.4 mg sublingual Q5M PRN Chest Unknown Rx tablet pain #30 tabs losartan 100 mg tablet 100 mg PO QHS Pt going out of 08/2008/01/25 Rx state for 3 months #90 tabs calcium carbonate (Calcium 600) 600 mg PO DAILY 06/19/24 08/01/25 History cholecalciferol (vitamin D3) 25 25 mcg PO DAILY 06/19/24 08/01/25 History mcg (1,000 unit) tablet collagen 1,000 mg PO BID 06/19/24 08/01/25 History vitamin E 670 mg (1,000 unit) 670 mg PO DAILY 06/19/24 08/01/25 History capsule coffee extract 100 mg-phosphatidyl cap PO 03/27/25 08/01/25 History serine 100 mg capsule (Neuriva Original) hydrochlorothiazide 12.5 mg tablet 12.5 mg PO DAILY #90 tabs 08/01/25 Rx phytosterol 300 mg-pantethine 100 1 cap PO BID 03/27/25 Unknown His tory mg capsule (CholestOff Complete) metoprolol succinate 25 mg 25 mg PO QHS #90 tabs 04/04/2504/20 Rx tablet,extended release 24 hr amlodipine 2.5 mg tablet 5 mg PO DAILY blood pressure 08/0108/01/25 History meclizine 25 mg tablet 25 mg PO BID PRN dizziness #20 tab s 08/01/25 Unknown Rx Allergy/AdvReac Type Severity Reaction Status Date / Time Mbwdpos-YAH-IzV Reductase Allergy Severe Pain in Verified 08/01/25 09:48 Inhibitor joints Penicillins Allergy Unknown Verified 08/01/25 09:48 metoprolol AdvReac Intermediate Other Verified 08/01/25 09:48 Family History Sister Pacemaker Father CVA (cerebral vascular accident) Surgical History History of cholecystectomy History of coronary artery stent placement (12/09/22) H/O: hysterectomy Social History Smoking Status: Never smoker alcohol intake: never substance use type: does not use caffeine: No ROS ROS ED ROS Narrative Constitutional: Complains of vertigo symptoms, denies any lightheadedness, fevers or chills Eyes: Denies double vision Cardiovascular: Denies chest pain Respiratory: Denies shortness of Abdomen: Denies nausea vomiting diarrhea Neurological: Denies numbness, tingling, weakness Skin: Denies any rashes or lesions EXAM Physical Exam Narrative Exam Narrative: General: Patient lying in bed rest comfortably did not appear to be in acute distress Head: Atraumatic, normocephalic Eyes: PERRL bilaterally, EOMI bilaterally, no conjunctival injection noted Neck: Soft, supple, trachea midline Cardiovascular: Regular rate and rhythm Respiratory: Clear to auscultation bilaterally Abdomen: Soft, nondistended, no tenderness to palpation Musculoskeletal: All bony prominences palpated joints taken through full range of motion no pain elicited Extremities: +5/5 strength noted in the bilateral upper and lower extremities Neurological: Patient following commands knew manuela (more content not included)... [facility] Spine Cervical without Contr ason 08-01-2025 Spine Cervical without Contras [facility] Imaging Services [address], [place] [address] Spine Cervical without Contras MR#: [id number] Acct: [id number] Name: SHARON LOVE Rep #: [id number] : 1940 F 84 From: Aren fountain MD PCP: Dr. Joe Carey MD Status: PRE ER Study: Spine Cervical without Contras Date of Exam: 0 08/01/25 Exam# [id number] Ordering Dr: Grzegorz Jamison DO PROCEDURE: SPINE CERVICAL WITHOUT CONTRAS 08/01/2025 REASON FOR EXAM: FALL Head injury due to a fall. TECHNIQUE: Procedure Code: CTSPC Modality: CT Procedure: SPINE CERVICAL WITHOUT CONTRAS Coronal and Sagittal reconstruction series were provided. One or more dose reduction techniques were used (e.g., Automated exposure control, adjustment of the mA and/or kV according to patient size, use of iterative reconstruction technique. RADIATION DOSE SUMMARY: CTDlvol: 12.63 mGy DLP: 292.5 mGycm COMPARISON: None FINDINGS: Alignment: No evidence of scoliosis. Vertebrae: No vertebral fracture. Multilevel spondylosis. Soft Tissues: No prevertebral soft tissue swelling. Other: C1-2: Mild degenerative changes at the atlantoaxial joint. C2-3: Minimal anterior listhesis of C2 on C3 most likely secondary to the facet joint osteoarthritis and hypertrophy worse on the left side. Moderate degree of left neural foraminal stenosis. C3-4: Marked degree of disc space narrowing and spondylosis. Uncovertebral arthrosis. Bilateral neural foraminal stenosis worse on the left side. C4-5: Marked degree of disc space narrowing. Spondylosis. Uncovertebral arthrosis and bilateral facet joint arthropathy. Mild degree of bilateral neural foraminal stenosis. C5-6: Marked degree of disc space narrowing. Spondylosis. Uncovertebral arthrosis. Mild bilateral neural foraminal stenosis. C6-7: Marked degree of disc space narrowing. Spondylosis. Uncovertebral arthrosis. Bilateral neural foraminal stenosis. C7-T1: Unremarkable CT/Spine Cervical without Contras IMPRESSION: DEGENERATIVE CHANGES OF THE CERVICAL SPINE. NO EVIDENCE OF SIGNIFICANT OSSEOUS CENTRAL CANAL OR NEURAL FORAMINAL STENOSIS. Reading Location: [place] [address] CC: Dr. Joe Carey MD; Dr. Grzegorz Jamison DO Threat Monitoring Analyst: Signed [facility] Breast imaging reportOrdered By: France Hoyt on 07-07-2025 Study report [facility] Imaging Services [address] [place] [address] SCRN MAMM (CAD)W/GREGORY MAYERS MR#: [id number] Acct: [id number] Name: SHARON LOVE Rep #: [id number] : 1940 F 84 From: Jerald Hoyt DO PCP: Dr. Joe Carey MD Status: REG CL I Study:SCRN MAMM (CAD)W/GREGORY BILAT Date of Exa m: 07/07/25 Exam# [id number] Ordering Dr: Ashley Madden MD EXAM: SCRN MAMM (CAD)W/GREGORY BILAT DATE: 07/07/2025 CLINICAL HISTORY: F, Age 84 y/o , ANNUAL TECHNIQUE: SCRN MAMM (CAD)W/GREGORY BILAT COMPARISON: Prior exam(s) dated 07/01/2024, 06/30/2023, and 06/28/2022 FINDINGS: TISSUE DENSITY: The breasts are heterogeneously dense, which may obscure small masses. Bilateral Breast Mammographic Findings: Benign vascular calcifications and round microcalcifications are seen in both breasts. No suspicious masses, suspicious clustered microcalcifications, architectural distortion or secondary signs of malignancy is identified either breast. BI/SCRN MAMM (CAD)W/GREGORY BILAT IMPRESSION: Unremarkable screening mammogram. OVERALL FINAL ASSESSMENT BI-RADS 2: BENIGN RECOMMENDATION: Routine annual follow-up in 1 Year A letter with findings and recommendations will be mailed to the patient. Reading Location: [id number] CC: Dr. Joe Carey MD; Dr. Price Madden MD ~ Threat Monitoring Analyst: Signed [facility] SCRN MAMM (CAD)W/GREGORY BILATo n 07-07-2025 SCRN MAMM (CAD)W/GREGORY BILAT [facility] Imaging Services [address] [place] [address] SCRN MAMM (CAD)W/GREGORY BILAT MR#: [id number] Acct: [id number] Name: SHARON LOVE Rep #: [id number] : 1940 F 84 From: France Cooley PCP: Dr. Joe Carey MD Status: REG CLI Study: SCRN MAMM (CAD)W/GREGORY BILAT Date of Exam: 06/27 12/21 Exam# [id number] Ordering Dr: Price Madden MD EXAM: SCRN MAMM (CAD)W/GREGORY BILAT DATE: 07/07/2025 CLINICAL HISTORY: F, Age 84 y/o , ANNUAL TECHNIQUE: SCRN MAMM (CAD)W/GREGORY BILAT COMPARISON: Prior exam(s) dated 07/01/2024, 06/30/2023, and 06/28/2022 FINDINGS: TISSUE DENSITY: The breasts are heterogeneously dense, which may obscure small masses. Bilateral Breast Mammographic Findings: Benign vascular calcifications and round microcalcifications are seen in both breasts. No suspicious masses, suspicious clustered microcalcifications, architectural distortion or secondary signs of malignancy is identified either breast. BI/SCRN MAMM (CAD)W/GREGORY BILAT IMPRESSION: Unremarkable screening mammogram. OVERALL FINAL ASSESSMENT BI-RADS 2: BENIGN RECOMMENDATION: Routine annual follow-up in 1 Year A letter with findings and recommendations will be mailed to the patient. Reading Location: [facility] CC: Dr. Joe Carey MD; Dr. Price Madden MD Threat Monitoring Analyst: Signed Normal [facility] L3410.9992on 06-17-2025 [facility]. COMMENT Normal . [facility] Comment on above: Order Comment: 06970 0VIT K1.NO LIGHT.EDTA PLAS.RF Result Comment: Test Ordered: 881825 Vitamin K1 Test(s) 647723-Iyqbfbp K1 was developed and its performance characteristics determined by [facility]. It has not been cleared or approved by the Food and Drug Administration. Vitamin K1 0.76 ng/mL Reference Range: 0.10-2.20 Performed at: - [facility] [id number] Chemistry Technical Officer: Fawad Haider MD, Phone: [phone] Performed at: - [facility] [id number] Chemistry Technical Officer: German Beatty PhD, Phone: [phone] Performed By: #### L 3410.9992, L506.1001 ####[facility] [address] [place], [address] Anion gap in Serum or Plasma Ordered By: Joe Carey on 06-12-2025 Anion gap [Moles/Vol] 11 mmol/L 5-15 [facility] BUN/creatinine ratioOrdered By: Joe Carey on 06-12-2025 Urea nitrogen/Creatinine [Mass ratio] 22.5 mg/mg High 10-20 [facility] Basic Metabolic Profile (BMP )on 06-12-2025 BUN/CRE 22.5 RATIO High 10- [facility] Comment on above: Order Comment: Order Date: 07/30/24Order Info: 666-11 - BMP Performed By: #### L 500.2500 ####[facility] [address] [place], [address] Calcium [Mass/Vol] 9.6 mg/dL Normal 7.6-11.0 [facility] Comment on above: Order Comment: Order Date: 07/30/24Order Info: 666-11 - BMP Performed By: #### L 500.2500 ####[facility] [address] [place], [address] Chloride [Moles/Vol] 104 mmol/L Normal 98-108 [facility] Comment on above: Order Comment: Order Date: 07/30/24Order Info: 666-11 - BMP Performed By: #### L 500.2500 ####[facility] [address] [place], [address] CO2 [Moles/Vol] 26.0 mmol/L Normal 21.0-32.0 [facility] Comment on above: Order Comment: Order Date: 07/30/24Order Info: 06 - BMP Performed By: #### L 500.2500 ####[facility] [address] [place], [address] Creatinine [Mass/Vol] 0.98 mg/dL Normal 0.70-1.20 [facility] Comment on above: Order Comment: Order Date: 07/30/24Order Info: 06- - BMP Performed By: #### L 500.2500 ####[facility] [address] [place], [address] GAP 11 Normal 5-15 [facility] Comment on above: Order Comment: Order Date: 07/30/24Order Info: 666-11 - BMP Performed By: #### L 500.2500 ####[facility] [address] [place], [id number] GFR/1.73 sq M.predicted among non-blacks MDRD (S/P/Bld) [Vol rate/Area] 58 mL/min/{1.73_m2} Low >60 [facility] Comment on above: Order Comment: Order Date: 07/30/24Order Info: 666-11 - BMP Result Comment: mL/m in/1.73m2 CKD-EPI Creatinine Equation (2020) Performed By: #### L 500.2500 ####[facility] [address] [place], [address] Glucose [Mass/Vol] 98 mg/dL Normal 70-99 [facility] Comment on above: Order Comment: Order Date: 07/30/24Order Info: 666-11 - BMP Performed By: #### L 500.2500 ####[facility] [address] [place], [address] Potassium [Moles/Vol] 4.3 mmol/L Normal 3.3-5.1 [facility] Comment on above: Order Comment: Order Date: 07/30/24Order Info: 666-11 - BMP Performed By: #### L 500.2500 ####[facility] [address] [place], [address] Sodium [Moles/Vol] 141 mmol/L Normal 133-145 [facility] Comment on above: Order Comment: Order Date: 07/30/24Order Info: 666-11 - BMP Performed By: #### L 500.2500 ####[facility] [address] [place], [address] Urea nitrogen [Mass/Vol] 22 mg/dL High 4-19 [facility] Comment on above: Order Comment: Order Date: 07/30/24Order Info: 0667-1 - BMP Performed By: #### L 500.2500 ####[facility] [address] [place], [address] Carbon dioxide, total [Moles /volume] in Central venous bloodOrdered By: Joe Carey on 06-12-2025 CO2 [Moles/Vol] 26.0 mmol/L 21.0-32.0 [facility] Chloride assayOrdered By: Roel Carey on 06-12-2025 Chloride [Moles/Vol] 104 mmol/L 98-108 [facility] Glomerular filtration rate ( GFR) estimation/1.73 sq m using serum, plasma, or whole bOrdered By: Joe Carey on 06-12-2025 GFR/1.73 sq M.predicted among non-blacks MDRD (S/P/Bld) [Vol rate/Area] 58 mL/min/{1.73_m2} Low >60 [facility] Comment on above: mL/min/1.73m2 CKD-EP I Creatinine Equation (2020) Potassium measurement (mass/ volume)Ordered By: Joe Carey on 06-12-2025 Potassium (Unsp spec) [Mass/Vol] 4.3 mmol/L 3.3-5.1 [facility] Serum creatinine measurement (mass/volume)Ordered By: Joe Carey on 06-12-2025 Creatinine [Mass/Vol] 0.98 mg/dL 0.70-1.20 [facility] Serum glucose measurement (m ass/volume)Ordered By: Joe Carey on 06-12-2025 Glucose [Mass/Vol] 98 mg/dL 70-99 [facility] Serum or plasma calcium tyron urement (mass/volume)Ordered By: Joe Carey on 06-12-2025 Calcium [Mass/Vol] 9.6 mg/dL 7.6-11.0 [facility] Serum or plasma urea nitroge n measurement (mass/volume)Ordered By: Joe Carey on 06-12-2025 Urea nitrogen [Mass/Vol] 22 mg/dL High 4-19 [facility] Sodium levelOrdered By: Sena Carey on 06-12-2025 Sodium [Moles/Vol] 141 mmol/L 133-145 [facility] Vitamin D,25 Hydroxyon 06-12 Vitamin D 25-OH 54.0 ng/mL Normal 30-100 [facility] Comment on above: Result Comment: Zahraa min D Status Deficiency: <20 ng/mL (50nmol/L) Insufficiency: 20-30 ng/mL (50-75 nmol/L) Sufficiency: 30-100 ng/mL (75-250 nmol/L) Toxicity: >100 ng/mL (>250 nmol/L) Performed By: #### L 3410.9992, L506.1001 ####[facility] [address] [place], [address] Brain/Head without Contrasto n 05-28-2025 Brain/Head without Contrast [facility] Imaging Services [address], [place] [address] Brain/Head without Contrast MR#: [id number] Acct: [id number] Name: SHARON LOVE Rep #: [id number] : 1940 F 84 From: Chu Juárez MD PCP: Dr. Joe Carey MD Status: REG CLI Study: Brain/Head without Contrast Date of Exam: 01/21 Exam# [id number] Ordering Dr: Yin Rosales PHYSICIAN RELATIONS REPRESENTATIVE PHYSICIAN RELATIONS REPRESENTATIVE -C PROCEDURE: BRAIN/HEAD WITHOUT CONTRAST 05/28/2025 REASON FOR [...] consistent changes, no acute findings Reading Location: [id number] CC: Yin Rosales; Dr. Joe Carey MD Threat Monitoring Analyst: Signed [facility] NCS and/or EMG Patienton NCS and/or EMG Patient [facility] Pulmonary Services/Neurology [address] [place] [address] MR#: [id number] Acct: [id number] Name: SHARON LOVE Rep #: [id number] : 1940 84 From: Abigail Guerrero MD Referring Dr: Lazaro Calles DPM Status: REG C LI Location: [facility] Date: 05/07/25 Sex: F C NCS and/or [...] Multi Select Codes Neurology Neurology Interp Codes: 98479-76 Musc test done w/n test comp (interp) (2) and 08277-95 Nrv cndj test 11-12 studies (interp) 05/07/25 1247 Date Abigail Guerrero MD CC: IRENE Calles; Dr. Abigail Guerrero MD; Dr. Joe Carey MD Date Dictated: 05/07/25 1245 Date Transcribed: 05/07/251244 Threat Monitoring Analyst: MAT Signed [facility] Anion gap in Serum or Plasma Ordered By: Debra Goodman on 03-27-2025 Anion gap [Moles/Vol] 13 mmol/L 5-15 [facility] BUN/creatinine ratioOrdered By: Debra Goodman on 03-27-2025 Urea nitrogen/Creatinine [Mass ratio] 17.9 mg/mg 10-20 [facility] Bilirubin, totalOrdered By: Debra Goodman on 03-27-2025 Bilirubin [Mass/Vol] 0.88 mg/dL 0.00-1.30 [facility] Carbon dioxide, total [Moles /volume] in Central venous bloodOrdered By: Debra Goodman on 03-27-2025 CO2 [Moles/Vol] 23.2 mmol/L 21.0-32.0 [facility] Cardiology Visit Reporton Cardiology Visit Report [facility] [place] [address] OFFICE VISIT Date of Service: 03/27/25 MR#: [id number] Acct: [id number] Name: SHARON LOVE Rep #: [id number] : 1940 Provider: EPIFANIO Lane Age/Sex: 84/F Location: [facility] Status: Signed HPI HPI History of Present Illness Details: Sharon Love is an 84 year old female that presented to [facility] on December 08, 2022 with chest [...] notes that prior to her going to [place] she was having increased HR. They wake [...] Dr. Malave. She has been going to [employer] without issues. EKG today demonstrates SR with incomplete RBBB Intake Vital Signs 12/18/24 14:00 03/27/25 07:43 Height 4 ft 11 in 4 ft 11 in Weight: 115 lb BMI 23.2 BP 133/71 H Blood Pressure Location Lt brachial Position Sitting Respiration 16 Pulse 73 Pulse Source NIBP Intake Visit Reasons: Fast Heart Rate (Cherry) Concrete Pump Operator Required: No Accompanied by: Is patient in pain?: No Allergies Lnqaphw-EUZ-HqN Reductase Inhibitor Allergy (Severe, Verified 03/27/25 09:24) [...] nitroglycerin sent to [facility]. [facility] Medical History Abnormal bruising Myocardial infarct Essential [...] Negative naus (more content not included)... Normal [facility] Chloride assayOrdered By: Ashley Goodman on 03-27-2025 Chloride [Moles/Vol] 105 mmol/L 98-108 [facility] Comprehensive Metabolic Prof ilon 03-27-2025 Albumin [Mass/Vol] 4.3 g/dL Normal 3.4-4.8 [facility] Comment on above: Performed By: #### L 500.4050, L501.5200, L501.9520 #### [facility] [address] [place], [address] Albumin/Globulin [Mass ratio] 1.7 {ratio} Normal 0.9-2.4 [facility] Comment on above: Performed By: #### L 500.4050, L501.5200, L501.9520 #### [facility] [address] [place], [address] ALK PHOS 68 U/L Normal 35-104 [facility] Comment on above: Performed By: #### L 500.4050, L501.5200, L501.9520 #### [facility] [address] [place], [address] ALT [Catalytic activity/Vol] 15 U/L Normal <=34 [facility] Comment on above: Performed By: #### L 500.4050, L501.5200, L501.9520 #### [facility] [address] [place], [address] AST [Catalytic activity/Vol] 27 U/L Normal <=31 [facility] Comment on above: Performed By: #### L 500.4050, L501.5200, L501.9520 #### [facility] [address] [place], [address] Bilirubin [Mass/Vol] 0.88 mg/dL Normal 0.00-1.30 [facility] Comment on above: Performed By: #### L 500.4050, L501.5200, L501.9520 #### [facility] [address] [place], [address] BUN/CRE 17.9 RATIO Normal 10-20 [facility] Comment on above: Performed By: #### L 500.4050, L501.5200, L501.9520 #### [facility] [address] [place], [address] Calcium [Mass/Vol] 9.2 mg/dL Normal 7.6-11.0 [facility] Comment on above: Performed By: #### L 500.4050, L501.5200, L501.9520 #### [facility] [address] [place], [address] Chloride [Moles/Vol] 105 mmol/L Normal 98-108 [facility] Comment on above: Performed By: #### L 500.4050, L501.5200, L501.9520 #### [facility] [address] [place], [address] CO2 [Moles/Vol] 23.2 mmol/L Normal 21.0-32.0 [facility] Comment on above: Performed By: #### L 500.4050, L501.5200, L501.9520 #### [facility] [address] [place], [address] Creatinine [Mass/Vol] 0.96 mg/dL Normal 0.70-1.20 [facility] Comment on above: Performed By: #### L 500.4050, L501.5200, L501.9520 #### [facility] [address] [place], [id number] GAP 13 Normal 5-15 [facility] Comment on above: Performed By: #### L 500.4050, L501.5200, L501.9520 #### [facility] [address] [place], [address] GFR/1.73 sq M.predicted among non-blacks MDRD (S/P/Bld) [Vol rate/Area] 59 mL/min/{1.73_m2} Low >60 [facility] Comment on above: Result Comment: mL/m in/1.73m2 CKD-EPI Creatinine Equation (2020) Performed By: #### L 500.4050, L501.5200, L501.9520 #### [facility] [address] [place], [address] Globulin (S) [Mass/Vol] 2.6 g/dL Normal 2.2-4.2 [facility] Comment on above: Performed By: #### L 500.4050, L501.5200, L501.9520 #### [facility] [address] [place], [address] Glucose [Mass/Vol] 103 mg/dL High 70-99 [facility] Comment on above: Performed By: #### L 500.4050, L501.5200, L501.9520 #### [facility] [address] [place], [address] Potassium [Moles/Vol] 3.7 mmol/L Normal 3.3-5.1 [facility] Comment on above: Performed By: #### L 500.4050, L501.5200, L501.9520 #### [facility] [address] [place], [address] Sodium [Moles/Vol] 141 mmol/L Normal 133-145 [facility] Comment on above: Performed By: #### L 500.4050, L501.5200, L501.9520 #### [facility] [address] [place], [address] T PROT 6.8 g/dL Normal 5.9-8.4 [facility] Comment on above: Performed By: #### L 500.4050, L501.5200, L501.9520 #### [facility] [address] [place], [address] Urea nitrogen [Mass/Vol] 17 mg/dL Normal 4-19 [facility] Comment on above: Performed By: #### L 500.4050, L501.5200, L501.9520 #### [facility] [address] [facility] [place], [place], [address] Glomerular filtration rate ( GFR) estimation/1.73 sq m using serum, plasma, or whole bOrdered By: Debra Goodman on 03-27-2025 GFR/1.73 sq M.predicted among non-blacks MDRD (S/P/Bld) [Vol rate/Area] 59 mL/min/{1.73_m2} Low >60 [facility] Comment on above: mL/min/1.73m2 CKD-EP I Creatinine Equation (2020) Laboratory - Chemistry and C hemistry - challengeOrdered By: Debra Goodman on 03-27-2025 AST [Catalytic activity/Vol] 27 U/L <32 [facility] Magnesiumon 03-27-2025 Magnesium [Mass/Vol] 2.3 mg/dL High 1.5-2.2 [facility] Comment on above: Performed By: #### L 500.4050, L501.5200, L501.9520 #### [facility] [address] [facility] [place], [address] Magnesium measurement (mass/ volume)Ordered By: Debra Goodman on 03-27-2025 Magnesium (Unsp spec) [Mass/Vol] 2.3 mg/dL High 1.5-2.2 [facility] Potassium measurement (mass/ volume)Ordered By: Debra Goodman on 03-27-2025 Potassium (Unsp spec) [Mass/Vol] 3.7 mmol/L 3.3-5.1 [facility] Serum creatinine measurement (mass/volume)Ordered By: Debra Goodman on 03-27-2025 Creatinine [Mass/Vol] 0.96 mg/dL 0.70-1.20 [facility] Serum globulin measurementOr dered By: Debra Goodman on 03-27-2025 Globulin (S) [Mass/Vol] 2.6 g/dL 2.2-4.2 [facility] Serum glucose measurement (m ass/volume)Ordered By: Debra Goodman on 03-27-2025 Glucose [Mass/Vol] 103 mg/dL High 70-99 [facility] Serum or plasma alanine sepulveda otransferase (ALT) measurementOrdered By: Debra Goodman on 03-27-2025 ALT [Catalytic activity/Vol] 15 U/L <35 [facility] Serum or plasma albumin tyron urement (mass/volume)Ordered By: Debra Goodman on 03-27-2025 Albumin [Mass/Vol] 4.3 g/dL 3.4-4.8 [facility] Serum or plasma albumin/glob ulin mass ratioOrdered By: Debra Goodman on 03-27-2025 Albumin/Globulin [Mass ratio] 1.7 {ratio} 0.9-2.4 [facility] Serum or plasma alkaline reva sphatase measurementOrdered By: Debra Goodman on 03-27-2025 ALP [Catalytic activity/Vol] 68 U/L 35-104 [facility] Serum or plasma calcium tyron urement (mass/volume)Ordered By: Debra Goodman on 03-27-2025 Calcium [Mass/Vol] 9.2 mg/dL 7.6-11.0 [facility] Serum or plasma urea nitroge n measurement (mass/volume)Ordered By: Debra Goodman on 03-27-2025 Urea nitrogen [Mass/Vol] 17 mg/dL 4-19 [facility] Sodium levelOrdered By: Kain Goodman on 03-27-2025 Sodium [Moles/Vol] 141 mmol/L 133-145 [facility] TSH DL <= 0.005 mIU/L QnOrde red By: Debra Goodman on 03-27-2025 TSH Qn 2.270 uIU/mL 0.300-4.200 [facility] Thyroid Stim Hormone (TSH)on 03-27-2025 TSH 2.270 uIU/mL Normal 0.300-4.200 [facility] Comment on above: Performed By: #### L 500.4050, L501.5200, [id number] #### [facility] [address] [place], [place] [address], [address] Total proteinOrdered By: Donato Goodman on 03-27-2025 Protein [Mass/Vol] 6.8 g/dL 5.9-8.4 [facility] Chest PA and Lateralon 02-25 Chest PA and Lateral [facility] Imaging Services [address] [place] [address] Chest PA and Lateral MR#: [id number] Acct: [id number] Name: SHARON LOVE Rep #: [id number] : 1940 F 84 From: Huy Pimentel MD PCP: Dr. Joe Carey MD Status: REG CLI Study: Chest PA and Lateral Date of Exam: 02/25/25 Exam# [id number] Ordering Dr: Joe Carey MD PROCEDURE: CHEST PA AND LATERAL 02/25/2025 [...] No evidence of acute disease. Reading Location: [facility] CC: Dr. Joe Carey MD Threat Monitoring Analyst: Signed Normal [facility] Visit Reporton Cardiology Visit Report [facility] [address] [place] [address] OFFICE VISIT Date of Service: 12/18/24 MR#: [id number] Acct: [id number] Name: SHARON LOVE Rep #: [id number] : 1940 Provider: EPIFANIO Lane Age/Sex: 84/F [place] [facility] [place]: Signed HPI HPI History of Present Illness Details: Sharon Love is an 84 year old female that presented to [facility] on December 08, 2022 with chest [...] well. She does not have any chest discomfort/heaviness/t ightness. Her exercise tolerance is stable for her [...] symptoms of claudication. She is going to [place] for a month. Intake Vital Signs 06/19/24 [...] FU Is patient in pain?: No Allergies Dpvhbbv-OQN-RjA Reductase Inhibitor Allergy (Severe, Verified 12/18/24 13:56) Pain in joints Penicillins Allergy (Verified 12/18/24 13:56) Unknown Medications ???Medication ???Instructions ???Recorded ???Confirmed ???Type aspirin 81 mg chewable tablet 81 mg PO Q heart [facility] 02/15/14 12/18/24 History glucosamine sulfate [...] mg PO DAILY 06/19/24 12/18/24 History omega 9-uox-zjv-fish oil 300 1 cap PO DAILY 06/19/24 [...] 1 yr follow up no acute concerns [facility] History Abnormal bruising Myocardial infarct [...] for headache(s), (more content not included)... Normal [facility] Basophil percentageOrdered B y: Joe Marqueske on 03-14-2024 Potassium [Moles/Vol] 4.2 mmol/L 3.5-5.1 [facility] Basophil percentageOrdered B y: Joe Marqueske on 03-06-2024 Potassium [Moles/Vol] 3.6 mmol/L 3.5-5.1 [facility] Iron measurement (mass/mass) Ordered By: Joe Carey on 03-06-2024 Iron (Unsp spec) [Mass/Mass] 59 ug/dL 50-170 [facility] - Chemistry and C hemistry - challengeOrdered By: Joe Carey on 03-06-2024 Ferritin [Mass/Vol] 153 ng/mL 8-252 [facility] No Panel InformationOrdered By: Joe Carey on 03-06-2024 Folate 62.60 ng/mL 3.1-55.4 [facility] Comment on above: Slight Hemolysis, Re sult may be falsely increased. Total Iron Binding Capacity 309 ug/dL 250-450 [facility] Vitamin B12 Level > 2000 pg/mL 211-911 [facility] Serum or plasma iron saturat ion measurement (mass fraction)Ordered By: Joe Carey on 03-06-2024 Iron saturation [Mass fraction] 19.1 % 15.0-55.0 [facility] Absolute lymphocyte countOrd ered By: Kyara Odonnell on 01-30-2024 Lymphocytes Auto (Unsp spec) [#/Vol] 1.74 10*3/uL 0.83-4.51 [facility] Automated lymphocyte count a s percentage of total leukocytesOrdered By: Kyara Odonnell on 01-30-2024 Lymphocytes/100 WBC Auto (Unsp spec) 30.9 % 19-41 [facility] Basophil percentageOrdered B y: Kyara Odonnell on 01-30-2024 Basophils/100 WBC (Bld) 0.9 % 0-1 [facility] Chloride [Moles/Vol] 107 mmol/L 98-107 [facility] Cholesterol [Mass/Vol] 144 mg/dL <200 [facility] Comment on above: <200 mg/dL Desirable 200-240 mg/dL Borderline >240 mg/dL High Risk Eosinophils/100 WBC (Bld) 3.4 % 0-5 [facility] Glucose [Mass/Vol] 91 mg/dL 74-106 [facility] Hemoglobin (Bld) [Mass/Vol] 12.7 g/dL 12.0-15.0 [facility] Monocytes/100 WBC (Bld) 11.5 % 0-10 [facility] Neutrophils (Bld) [#/Vol] 3.0 10*3/uL 2.0-7.7 [facility] Neutrophils/100 WBC (Bld) 53.1 % 47-70 [facility] Potassium [Moles/Vol] 3.3 mmol/L 3.5-5.1 [facility] Sodium [Moles/Vol] 142 mmol/L 136-145 [facility] Triglyceride [Mass/Vol] 160 mg/dL <199 [facility] Comment on above: The drugs N-Acetylcy steine and Metamizole may falsely depress this assay.Serum Triglycerides Reference Interval Normal <150 mg/dL Borderline high 150 - 199 mg/dL High 200 - 499 mg/dL Very High > or = 500 mg/dL WBC (Bld) [#/Vol] 5.6 10*3/uL 4.4-11.0 [facility] Determination of erythrocyte mean corpuscular volume (MCV)Ordered By: Kyara Odonnell on 01-30-2024 MCV (RBC) [Entitic vol] 94.7 fL 81-99 [facility] Erythrocyte distribution wid th ratioOrdered By: Kyara Odonnell on 01-30-2024 Erythrocyte distribution width (RBC) [Ratio] 13.1 % 11.6-14.6 [facility] Erythrocyte distribution wid th standard deviationOrdered By: Kyara Odonnell on 01-30-2024 Erythrocyte distribution width (RBC) [Entitic vol] 45.8 fL 35.1-43.9 [facility] Hematocrit Auto (Bld) [Volum e fraction]Ordered By: Kyara Odonnell on 01-30-2024 Hematocrit (Bld) [Volume fraction] 39.0 % 37-47 [facility] Immature granulocytes/100 WB C Auto (Bld)Ordered By: Kyara Odonnell on 01-30-2024 Immature granulocytes/100 WBC (Bld) 0.200 % 0.0-0.9 [facility] Comment on above: IG% - Immature Granu locytes (promyelocytes, myelocytes and metamyelocytes) > 1% indicates that a LEFT SHIFT is Present. Laboratory - Chemistry and C hemistry - challengeOrdered By: Kyara Odonnell on 01-30-2024 ALT [Catalytic activity/Vol] 21 U/L 13-56 [facility] Cholesterol in HDL [Mass/Vol] 48 mg/dL >40 [facility] Comment on above: The drugs N-Acetylcy steine and Metamizole may falsely depress this assay. Reference Range HDL <40 mg/dL Low HDL Cholesterol HDL >or= 60 mg/dL High HDL Cholesterol Cholesterol in LDL [Mass/Vol] 64 mg/dL 0-130 [facility] CO2 [Moles/Vol] 27.0 mmol/L 21.0-32.0 [facility] Urea nitrogen/Creatinine [Mass ratio] 18.9 mg/mg 10-20 [facility] - Hematology and Cell countsOrdered By: Kyara Odonnell on 01-30-2024 MCH (RBC) [Entitic mass] 30.8 pg 27.0-32.0 [facility] MCHC (RBC) [Mass/Vol] 32.6 g/dL 32-36 [facility] Nucleated RBC/100 WBC (Bld) [Ratio] 0 % 0-5 [facility] Platelet mean volume (Bld) [Entitic vol] 9.8 fL 6.2-12.0 [facility] Platelets (Bld) [#/Vol] 255 10*3/uL 150-450 [facility] No Panel InformationOrdered By: Kyara Odonnell on 01-30-2024 Estimated GFR (MDRD) Amer 77 mL/min >60 [facility] Comment on above: GFR Calc Estimated GFR (MDRD) Non-Af Amer 64 mL/min >60 [facility] Comment on above: Non- GFR Calc Vitamin D 25-Hydroxy 48.2 ng/mL [facility] Comment on above: Vitamin D 25(OH) Sta tus Range Deficiency <20 ng/mL (50nmol/L) Insufficiency 20 - 30 ng/mL (50 - 75 nmol/L) Sufficiency 30 - 100 ng/mL (75 - 250 nmol/L) Toxicity >100 ng/mL (>250 nmol/L) VLDL Cholesterol 32 mg/dL 5-40 [facility] RBC Auto (Bld) [#/Vol]Ordere d By: Kyara Odonnell on 01-30-2024 RBC (Bld) [#/Vol] 4.12 10*6/uL 4.2-5.4 [facility] Serum or plasma calcium tyron urement (mass/volume)Ordered By: Kyara Odonnell on 01-30-2024 Calcium [Mass/Vol] 9.0 mg/dL 8.5-10.1 [facility] Serum or plasma creatinine m easurement (mass/volume)Ordered By: Kyara Odonnell on 01-30-2024 Creatinine [Mass/Vol] 0.90 mg/dL 0.55-1.02 [facility] Comment on above: The validity of the calculated GFR & GFRAA in patients over 70 years has not been determined. Clinical correlation is essential. Serum or plasma urea nitroge n measurement (mass/volume)Ordered By: Kyara Odonnell on 01-30-2024 Urea nitrogen [Mass/Vol] 17 mg/dL 7-18 [facility] Thin prep Papanicolaou smear with manual screeningOrdered By: Kyara Odonnell on 01-30-2024 Protein (U) [Mass/Vol] 9.5 mg/dL 0.0-11.8 [facility] Thin prep Papanicolaou smear with manual screening 23 U/L 15-37 [facility] Thin prep Papanicolaou smear with manual screening 8 5-15 [facility] Urine creatinine measurement (mass/volume)Ordered By: Kyara Odonnell on 01-30-2024 Creatinine (U) [Mass/Vol] 72.00 mg/dL NO RANGE EST. [facility] Urine protein/creatinine mas s ratioOrdered By: Kyara Odonnell on 01-30-2024 Protein/Creatinine (U) [Mass ratio] 132 mg/g CRE 0-200 [facility] Basophil percentageOrdered B y: Kyara Odonnell on 07-25-2023 Cholesterol [Mass/Vol] 200 mg/dL <200 [facility] Comment on above: <200 mg/dL Desirable 200-240 mg/dL Borderline >240 mg/dL High Risk Triglyceride [Mass/Vol] 357 mg/dL <199 [facility] Comment on above: The drugs N-Acetylcy steine and Metamizole may falsely depress this assay.Serum Triglycerides Reference Interval Normal <150 mg/dL Borderline high 150 - 199 mg/dL High 200 - 499 mg/dL Very High > or = 500 mg/dL Laboratory - Chemistry and C hemistry - challengeOrdered By: Kyara Odonnell on 07-25-2023 ALT [Catalytic activity/Vol] 24 U/L 13-56 [facility] Serum or plasma cholesterol in HDL measurement (mass/volume)Ordered By: Kyara Odonnell on 07-25-2023 Cholesterol in HDL [Mass/Vol] 41 mg/dL >40 [facility] Comment on above: The drugs N-Acetylcy steine and Metamizole may falsely depress this assay. Reference Range HDL <40 mg/dL Low HDL Cholesterol HDL >or= 60 mg/dL High HDL Cholesterol Serum or plasma cholesterol in VLDL measurement (mass/volume)Ordered By: Kyara Odonnell on 07-25-2023 Cholesterol in VLDL [Mass/Vol] 71 mg/dL 5-40 [facility] Serum or plasma low density lipoprotein (LDL) cholesterol measurement (mass/volume)Ordered By: Kyara Odonnell on 07-25-2023 Cholesterol in LDL [Mass/Vol] 88 mg/dL 0-130 [facility] Thin prep Papanicolaou smear with manual screeningOrdered By: Kyara Odonnell on 07-25-2023 Thin prep Papanicolaou smear with manual screening 22 U/L 15-37 [facility] Absolute lymphocyte countOrd ered By: Virgil Bazzi on 03-21-2023 Lymphocytes Auto (Unsp spec) [#/Vol] 2.75 10*3/uL 0.83-4.51 [facility] Basophil percentageOrdered B y: Virgil Bazzi on 03-21-2023 Basophil percentage 0 SEEN /hpf 0-5 [facility] Basophils/100 WBC (Bld) 0.9 % 0-1 [facility] Chloride [Moles/Vol] 106 mmol/L 98-107 [facility] Eosinophils/100 WBC (Bld) 2.9 % 0-5 [facility] Glucose [Mass/Vol] 113 mg/dL 74-106 [facility] Comment on above: Fasting Glucose resu lt from 100 to 125 mg/dL suggests IMPAIRED HOMEOSTASIS per A.D.A. criteria. Neutrophils (Bld) [#/Vol] 3.2 10*3/uL 2.0-7.7 [facility] Neutrophils/100 WBC (Bld) 46.7 % 47-70 [facility] Potassium [Moles/Vol] 3.4 mmol/L 3.5-5.1 [facility] Sodium [Moles/Vol] 138 mmol/L 136-145 [facility] WBC (Bld) [#/Vol] 6.9 10*3/uL 4.4-11.0 [facility] Bilirubin Test strip Ql (U)O rdered By: Virgil Bazzi on 03-21-2023 Bilirubin Ql (U) Negative Negative [facility] Blood erythrocytes count (nu mber/volume)Ordered By: Virgil Bazzi on 03-21-2023 RBC (Bld) [#/Vol] 4.84 10*6/uL 4.2-5.4 [facility] Blood hemoglobin measurement (mass/volume)Ordered By: Virgil Bazzi on 03-21-2023 Hemoglobin (Bld) [Mass/Vol] 15.0 g/dL 12.0-15.0 [facility] Blood lymphocytes/100 leukoc ytesOrdered By: Virgil Bazzi on 03-21-2023 Lymphocytes/100 WBC (Bld) 39.9 % 19-41 [facility] Blood monocytes/100 leukocyt esOrdered By: Virgil Bazzi on 03-21-2023 Monocytes/100 WBC (Bld) 9.3 % 0-10 [facility] Blood platelet mean volumeOr dered By: Virgil Bazzi on 03-21-2023 Platelet mean volume (Bld) [Entitic vol] 9.4 fL 6.2-12.0 [facility] Determination of erythrocyte mean corpuscular volume (MCV)Ordered By: Virgil Bazzi on 03-21-2023 MCV (RBC) [Entitic vol] 95.7 fL 81-99 [facility] Hematocrit Auto (Bld) [Volum e fraction]Ordered By: Virgil Bazzi on 03-21-2023 Hematocrit (Bld) [Volume fraction] 46.3 % 37-47 [facility] Ketones Test strip Ql (U)Ord ered By: Virgil Bazzi on 03-21-2023 Ketones Ql (U) Negative Negative [facility] - Chemistry and C hemistry - challengeOrdered By: Virgil Bazzi on 03-21-2023 CO2 [Moles/Vol] 27.0 mmol/L 21.0-32.0 [facility] Magnesium [Mass/Vol] 2.7 mg/dL 1.6-2.6 [facility] Urea nitrogen/Creatinine [Mass ratio] 24.9 mg/mg 10-20 [facility] - Hematology and Cell countsOrdered By: Virgil Bazzi on 03-21-2023 Erythrocyte distribution width (RBC) [Entitic vol] 44.7 fL 35.1-43.9 [facility] Erythrocyte distribution width (RBC) [Ratio] 12.7 % 11.6-14.6 [facility] Immature granulocytes/100 WBC (Bld) 0.300 % 0.0-0.9 [facility] Comment on above: IG% - Immature Granu locytes (promyelocytes, myelocytes and metamyelocytes) > 1% indicates that a LEFT SHIFT is Present. MCH (RBC) [Entitic mass] 31.0 pg 27.0-32.0 [facility] Nucleated RBC/100 WBC (Bld) [Ratio] 0 % 0-5 [facility] MCHC Auto (RBC) [Mass/Vol]Or dered By: Virgil Bazzi on 03-21-2023 MCHC (RBC) [Mass/Vol] 32.4 g/dL 32-36 [facility] Mucus LM Ql (Urine sed)Order ed By: Virgil Bazzi on 03-21-2023 Mucus Ql (Urine sed) 0 SEEN /hpf [facility] Nitrite Test strip Ql (U)Ord ered By: Virgil Bazzi on 03-21-2023 Nitrite Ql (U) Negative Negative [facility] No Panel InformationOrdered By: Virgil Bazzi on 03-21-2023 Troponin I High Sensitivity 6 pg/mL 3.0-54.0 [facility] Comment on above: Please Note: New Eve t Units and Gender Specific Reference Ranges. For more information see Policy Stat Procedure [place] High Sensitivity Troponin (TNIH) and attachments. Estimated Creatinine Clearance Calc 41.25 ml/min [facility] Estimated GFR (MDRD) Amer 72 mL/min >60 [facility] Comment on above: GFR Calc Estimated GFR (MDRD) Non-Af Amer 59 mL/min >60 [facility] Comment on above: Non- GFR Calc Platelets bldOrdered By: Alcon Bazzi on 03-21-2023 Platelets (Bld) [#/Vol] 288 10*3/uL 150-450 [facility] Protein Test strip Ql (U)Ord ered By: Virgil Bazzi on 03-21-2023 Protein Ql (U) Negative Negative [facility] Serum or plasma calcium tyron urement (mass/volume)Ordered By: Virgil Bazzi on 03-21-2023 Calcium [Mass/Vol] 9.6 mg/dL 8.5-10.1 [facility] Serum or plasma creatinine m easurement (mass/volume)Ordered By: Virgil Bazzi on 03-21-2023 Creatinine [Mass/Vol] 0.96 mg/dL 0.55-1.02 [facility] Comment on above: The validity of the calculated GFR & GFRAA in patients over 70 years has not been determined. Clinical correlation is essential. Serum or plasma urea nitroge n measurement (mass/volume)Ordered By: Virgil Bazzi on 03-21-2023 Urea nitrogen [Mass/Vol] 24 mg/dL 7-18 [facility] Squamous epithelial cells de tection in urine sediment by light microscopyOrdered By: Virgil Bazzi on 03-21-2023 Epithelial cells.squamous LM Ql (Urine sed) 0 SEEN /hpf 5-10 [facility] Thin prep Papanicolaou smear with manual screeningOrdered By: Virgil Bazzi on 03-21-2023 Thin prep Papanicolaou smear with manual screening 5 5-15 [facility] Urine blood detectionOrdered By: Virgil Bazzi on 03-21-2023 RBC Ql (U) Negative Negative [facility] RBC Ql (U) 0 SEEN /hpf 0-5 [facility] Urine clarityOrdered By: Alcon Bazzi on 03-21-2023 Clarity (U) Clear Clear [facility] Urine color determinationOrd ered By: Virgil Bazzi on 03-21-2023 Color (U) Yellow Yellow [facility] Urine glucose detectionOrder ed By: Virgil Bazzi on 03-21-2023 Glucose Ql (U) Normal mg/dl Normal [facility] Urine leukocyte esterase det ection by dipstickOrdered By: Virgil Bazzi on 03-21-2023 Leukocyte esterase Test strip Ql (U) Negative Negative [facility] Urine pHOrdered By: Virgil baltazar on 03-21-2023 pH (U) 6.5 [pH] 5.0 - 8.0 [facility] Urine sediment bacteria coun t by microscopy (number/high power field)Ordered By: Virgil Bazzi on 03-21-2023 Bacteria LM.HPF (Urine sed) [#/Area] 0 /[HPF] None Seen [facility] Urine specific gravity measu rementOrdered By: Virgil Bazzi on 03-21-2023 Specific gravity (U) [Rel density] 1.010 1.002-1.030 [facility] Urobilinogen Auto test strip Ql (U)Ordered By: Virgil Bazzi on 03-21-2023 Urobilinogen Ql (U) Normal mg/dl Normal [facility] Basophil percentageOrdered B y: Debra Goodman on 03-13-2023 Chloride [Moles/Vol] 107 mmol/L 98-107 [facility] Glucose [Mass/Vol] 92 mg/dL 74-106 [facility] Potassium [Moles/Vol] 3.8 mmol/L 3.5-5.1 [facility] Sodium [Moles/Vol] 138 mmol/L 136-145 [facility] WBC (Bld) [#/Vol] 7.5 10*3/uL 4.4-11.0 [facility] Blood erythrocytes count (nu mber/volume)Ordered By: Debra Goodman on 03-13-2023 RBC (Bld) [#/Vol] 4.28 10*6/uL 4.2-5.4 [facility] Blood hemoglobin measurement (mass/volume)Ordered By: Debra Goodman on 03-13-2023 Hemoglobin (Bld) [Mass/Vol] 13.3 g/dL 12.0-15.0 [facility] Blood platelet mean volumeOr dered By: Debra Goodman on 03-13-2023 Platelet mean volume (Bld) [Entitic vol] 9.3 fL 6.2-12.0 [facility] Determination of erythrocyte mean corpuscular volume (MCV)Ordered By: Debra Goodman on 03-13-2023 MCV (RBC) [Entitic vol] 93.9 fL 81-99 [facility] Hematocrit Auto (Bld) [Volum e fraction]Ordered By: Debra Goodman on 03-13-2023 Hematocrit (Bld) [Volume fraction] 40.2 % 37-47 [facility] - Chemistry and C hemistry - challengeOrdered By: Debra Goodman on 03-13-2023 CO2 [Moles/Vol] 26.0 mmol/L 21.0-32.0 [facility] Urea nitrogen/Creatinine [Mass ratio] 23.3 mg/mg 10-20 [facility] - Hematology and Cell countsOrdered By: Debra Goodman on 03-13-2023 Erythrocyte distribution width (RBC) [Entitic vol] 43.8 fL 35.1-43.9 [facility] Erythrocyte distribution width (RBC) [Ratio] 12.7 % 11.6-14.6 [facility] MCH (RBC) [Entitic mass] 31.1 pg 27.0-32.0 [facility] MCHC Auto (RBC) [Mass/Vol]Or dered By: Debra Goodman on 03-13-2023 MCHC (RBC) [Mass/Vol] 33.1 g/dL 32-36 [facility] No Panel InformationOrdered By: Debra Goodman on 03-13-2023 Estimated GFR (MDRD) Amer 77 mL/min >60 [facility] Comment on above: GFR Calc Estimated GFR (MDRD) Non-Af Amer 64 mL/min >60 [facility] Comment on above: Non- GFR Calc Thyroid Stimulating Hormone (TSH) 2.85 uIU/mL 0.358-3.74 [facility] Platelets bldOrdered By: Donato neel Maxine on 03-13-2023 Platelets (Bld) [#/Vol] 252 10*3/uL 150-450 [facility] Serum or plasma calcium tyron urement (mass/volume)Ordered By: Debra Goodman on 03-13-2023 Calcium [Mass/Vol] 8.6 mg/dL 8.5-10.1 [facility] Serum or plasma creatinine m easurement (mass/volume)Ordered By: Debra Goodman on 03-13-2023 Creatinine [Mass/Vol] 0.90 mg/dL 0.55-1.02 [facility] Comment on above: The validity of the calculated GFR & GFRAA in patients over 70 years has not been determined. Clinical correlation is essential. Serum or plasma urea nitroge n measurement (mass/volume)Ordered By: Debra Goodman on 03-13-2023 Urea nitrogen [Mass/Vol] 21 mg/dL 7-18 [facility] Thin prep Papanicolaou smear with manual screeningOrdered By: Debra Goodman on 03-13-2023 Thin prep Papanicolaou smear with manual screening 5 5-15 [facility] Absolute lymphocyte countOrd ered By: Dr. Clement on 12-19-2022 Lymphocytes Auto (Unsp spec) [#/Vol] 2.48 10*3/uL 0.83-4.51 [facility] Basophil percentageOrdered B y: Dr. Clement on 12-19-2022 Basophils/100 WBC (Bld) 0.4 % 0-1 [facility] Chloride [Moles/Vol] 106 mmol/L 98-107 [facility] Eosinophils/100 WBC (Bld) 0.8 % 0-5 [facility] Glucose [Mass/Vol] 99 mg/dL 74-106 [facility] Neutrophils (Bld) [#/Vol] 8.4 10*3/uL 2.0-7.7 [facility] Neutrophils/100 WBC (Bld) 68.2 % 47-70 [facility] Potassium [Moles/Vol] 3.6 mmol/L 3.5-5.1 [facility] Sodium [Moles/Vol] 140 mmol/L 136-145 [facility] WBC (Bld) [#/Vol] 12.4 10*3/uL 4.4-11.0 [facility] Blood erythrocytes count (nu mber/volume)Ordered By: Dr. Clement on 12-19-2022 RBC (Bld) [#/Vol] 4.36 10*6/uL 4.2-5.4 [facility] Blood hemoglobin measurement (mass/volume)Ordered By: Dr. Clement on 12-19-2022 Hemoglobin (Bld) [Mass/Vol] 13.3 g/dL 12.0-15.0 [facility] Blood lymphocytes/100 leukoc ytesOrdered By: Dr. Clement on 12-19-2022 Lymphocytes/100 WBC (Bld) 20.0 % 19-41 [facility] Blood monocytes/100 leukocyt esOrdered By: Dr. Clement on 12-19-2022 Monocytes/100 WBC (Bld) 8.7 % 0-10 [facility] Blood platelet mean volumeOr dered By: Dr. Clement on 12-19-2022 Platelet mean volume (Bld) [Entitic vol] 9.3 fL 6.2-12.0 [facility] Determination of erythrocyte mean corpuscular volume (MCV)Ordered By: Dr. Clement on 12-19-2022 MCV (RBC) [Entitic vol] 94.5 fL 81-99 [facility] Hematocrit Auto (Bld) [Volum e fraction]Ordered By: Dr. Clement on 12-19-2022 Hematocrit (Bld) [Volume fraction] 41.2 % 37-47 [facility] - Chemistry and C hemistry - challengeOrdered By: Dr. Clement on 12-19-2022 CO2 [Moles/Vol] 28.0 mmol/L 21.0-32.0 [facility] Urea nitrogen/Creatinine [Mass ratio] 18.8 mg/mg 10-20 [facility] - Hematology and Cell countsOrdered By: Dr. Clement on 12-19-2022 Erythrocyte distribution width (RBC) [Entitic vol] 48.2 fL 35.1-43.9 [facility] Erythrocyte distribution width (RBC) [Ratio] 13.9 % 11.6-14.6 [facility] Immature granulocytes/100 WBC (Bld) 1.900 % 0.0-0.9 [facility] Comment on above: IG% - Immature Granu locytes (promyelocytes, myelocytes and metamyelocytes) > 1% indicates that a LEFT SHIFT is Present. MCH (RBC) [Entitic mass] 30.5 pg 27.0-32.0 [facility] Nucleated RBC/100 WBC (Bld) [Ratio] 0 % 0-5 [facility] MCHC Auto (RBC) [Mass/Vol]Or dered By: Dr. Clement on 12-19-2022 MCHC (RBC) [Mass/Vol] 32.3 g/dL 32-36 [facility] No Panel InformationOrdered By: Dr. Clement on 12-19-2022 Estimated GFR (MDRD) Amer 68 mL/min >60 [facility] Comment on above: GFR Calc Estimated GFR (MDRD) Non-Af Amer 56 mL/min >60 [facility] Comment on above: Non- GFR Calc Platelets bldOrdered By: Dr. Clement on 12-19-2022 Platelets (Bld) [#/Vol] 349 10*3/uL 150-450 [facility] Serum or plasma calcium tyron urement (mass/volume)Ordered By: Dr. Clement on 12-19-2022 Calcium [Mass/Vol] 9.2 mg/dL 8.5-10.1 [facility] Serum or plasma creatinine m easurement (mass/volume)Ordered By: Dr. Clement on 12-19-2022 Creatinine [Mass/Vol] 1.01 mg/dL 0.55-1.02 [facility] Comment on above: The validity of the calculated GFR & GFRAA in patients over 70 years has not been determined. Clinical correlation is essential. Serum or plasma urea nitroge n measurement (mass/volume)Ordered By: Dr. Clement on 12-19-2022 Urea nitrogen [Mass/Vol] 19 mg/dL 7-18 [facility] Thin prep Papanicolaou smear with manual screeningOrdered By: Dr. Clement on 12-19-2022 Thin prep Papanicolaou smear with manual screening 6 5-15 [facility] Basophil percentageOrdered B y: Virgil Bazzi on 12-15-2022 Chloride [Moles/Vol] 107 mmol/L 98-107 [facility] Glucose [Mass/Vol] 100 mg/dL 74-106 [facility] Comment on above: Fasting Glucose resu lt from 100 to 125 mg/dL suggests IMPAIRED HOMEOSTASIS per A.D.A. criteria. Potassium [Moles/Vol] 3.8 mmol/L 3.5-5.1 [facility] Sodium [Moles/Vol] 140 mmol/L 136-145 [facility] Laboratory - Chemistry and C hemistry - challengeOrdered By: Virgil Bazzi on 12-15-2022 CO2 [Moles/Vol] 26.0 mmol/L 21.0-32.0 [facility] [facility] Urea nitrogen/Creatinine [Mass ratio] 26.4 mg/mg 10-20 [facility] No Panel InformationOrdered By: Virgil Bazzi on 12-15-2022 Estimated Creatinine Clearance Calc 36.25 ml/min [facility] Estimated GFR (MDRD) Amer 62 mL/min >60 [facility] Comment on above: GFR Calc Estimated GFR (MDRD) Non-Af Amer 51 mL/min >60 [facility] Comment on above: Non- GFR Calc Serum or plasma calcium tyron urement (mass/volume)Ordered By: Virgil Bazzi on 12-15-2022 Calcium [Mass/Vol] 8.8 mg/dL 8.5-10.1 [facility] Serum or plasma creatinine m easurement (mass/volume)Ordered By: Virgil Bazzi on 12-15-2022 Creatinine [Mass/Vol] 1.10 mg/dL 0.55-1.02 [facility] Comment on above: The validity of the calculated GFR & GFRAA in patients over 70 years has not been determined. Clinical correlation is essential. Serum or plasma urea nitroge n measurement (mass/volume)Ordered By: Virgil Bazzi on 12-15-2022 Urea nitrogen [Mass/Vol] 29 mg/dL 7-18 [facility] Thin prep Papanicolaou smear with manual screeningOrdered By: Virgil Bazzi on 12-15-2022 Thin prep Papanicolaou smear with manual screening 7 5-15 [facility] Basophil percentageOrdered B y: Dr. Wiggins on 12-10-2022 Bilirubin [Mass/Vol] 1.10 mg/dL 0.20-1.00 [facility] Comment on above: For patients on eltr ombopag therapy, use of Dimension Drewsey TBIL is not recommended. Chloride [Moles/Vol] 109 mmol/L 98-107 [facility] Glucose [Mass/Vol] 118 mg/dL 74-106 [facility] Comment on above: Fasting Glucose resu lt from 100 to 125 mg/dL suggests IMPAIRED HOMEOSTASIS per A.D.A. criteria. Potassium [Moles/Vol] 3.3 mmol/L 3.5-5.1 [facility] Protein [Mass/Vol] 6.4 g/dL 6.4-8.2 [facility] Sodium [Moles/Vol] 141 mmol/L 136-145 [facility] WBC (Bld) [#/Vol] 10.3 10*3/uL 4.4-11.0 [facility] Basophil percentageOrdered B y: Dr. Dalton on 12-10-2022 Cholesterol [Mass/Vol] 195 mg/dL <200 [facility] Comment on above: <200 mg/dL Desirable 200-240 mg/dL Borderline >240 mg/dL High Risk Triglyceride [Mass/Vol] 215 mg/dL <199 [facility] Comment on above: The drugs N-Acetylcy steine and Metamizole may falsely depress this assay.Serum Triglycerides Reference Interval Normal <150 mg/dL Borderline high 150 - 199 mg/dL High 200 - 499 mg/dL Very High > or = 500 mg/dL Blood erythrocytes count (nu mber/volume)Ordered By: Dr. Wiggins on 12-10-2022 RBC (Bld) [#/Vol] 3.99 10*6/uL 4.2-5.4 [facility] Blood hemoglobin measurement (mass/volume)Ordered By: Dr. Wiggins on 12-10-2022 Hemoglobin (Bld) [Mass/Vol] 12.2 g/dL 12.0-15.0 [facility] Blood platelet mean volumeOr dered By: Dr. Wiggins on 12-10-2022 Platelet mean volume (Bld) [Entitic vol] 9.7 fL 6.2-12.0 [facility] Determination of erythrocyte mean corpuscular volume (MCV)Ordered By: Dr. Wiggins on 12-10-2022 MCV (RBC) [Entitic vol] 93.7 fL 81-99 [facility] Hematocrit Auto (Bld) [Volum e fraction]Ordered By: Dr. Wiggins on 12-10-2022 Hematocrit (Bld) [Volume fraction] 37.4 % 37-47 [facility] Laboratory - Chemistry and C hemistry - challengeOrdered By: Dr. Wiggins on 12-10-2022 ALP [Catalytic activity/Vol] 61 U/L 45-117 [facility] ALT [Catalytic activity/Vol] 21 U/L 13-56 [facility] CO2 [Moles/Vol] 24.0 mmol/L 21.0-32.0 [facility] Globulin (S) [Mass/Vol] 3.0 g/dL 2.2-4.2 [facility] Urea nitrogen/Creatinine [Mass ratio] 14.6 mg/mg 10-20 [facility] Laboratory - Hematology and Cell countsOrdered By: Dr. Wiggins on 12-10-2022 Erythrocyte distribution width (RBC) [Entitic vol] 45.3 fL 35.1-43.9 [facility] Erythrocyte distribution width (RBC) [Ratio] 13.2 % 11.6-14.6 [facility] MCH (RBC) [Entitic mass] 30.6 pg 27.0-32.0 [facility] MCHC Auto (RBC) [Mass/Vol]Or dered By: Dr. Wiggins on 12-10-2022 MCHC (RBC) [Mass/Vol] 32.6 g/dL 32-36 [facility] No Panel InformationOrdered By: Dr. Wiggins on 12-10-2022 Estimated Creatinine Clearance Calc 36.31 ml/min [facility] Estimated GFR (MDRD) Amer 66 mL/min >60 [facility] Comment on above: GFR Calc Estimated GFR (MDRD) Non-Af Amer 55 mL/min >60 [facility] Comment on above: Non- GFR Calc Platelets bldOrdered By: Dr. Wiggins on 12-10-2022 Platelets (Bld) [#/Vol] 251 10*3/uL 150-450 [facility] Serum or plasma albumin tyron urement (mass/volume)Ordered By: Dr. Wiggins on 12-10-2022 Albumin [Mass/Vol] 3.4 g/dL 3.2-5.0 [facility] Serum or plasma albumin/glob ulin mass ratioOrdered By: Dr. Wiggins on 12-10-2022 Albumin/Globulin [Mass ratio] 1.1 {ratio} 0.9-2.4 [facility] Serum or plasma calcium tyron urement (mass/volume)Ordered By: Dr. Wiggins on 12-10-2022 Calcium [Mass/Vol] 8.4 mg/dL 8.5-10.1 [facility] Serum or plasma cholesterol in HDL measurement (mass/volume)Ordered By: Dr. Dalton on 12-10-2022 Cholesterol in HDL [Mass/Vol] 43 mg/dL >40 [facility] Comment on above: The drugs N-Acetylcy steine and Metamizole may falsely depress this assay. Reference Range HDL <40 mg/dL Low HDL Cholesterol HDL >or= 60 mg/dL High HDL Cholesterol Serum or plasma cholesterol in VLDL measurement (mass/volume)Ordered By: Dr. Dalton on 12-10-2022 Cholesterol in VLDL [Mass/Vol] 43 mg/dL 5-40 [facility] Serum or plasma creatinine m easurement (mass/volume)Ordered By: Dr. Wiggins on 12-10-2022 Creatinine [Mass/Vol] 1.03 mg/dL 0.55-1.02 [facility] Comment on above: The validity of the calculated GFR & GFRAA in patients over 70 years has not been determined. Clinical correlation is essential. Serum or plasma low density lipoprotein (LDL) cholesterol measurement (mass/volume)Ordered By: Dr. Dalton on 12-10-2022 Cholesterol in LDL [Mass/Vol] 109 mg/dL 0-130 [facility] Serum or plasma urea nitroge n measurement (mass/volume)Ordered By: Dr. Wiggins on 12-10-2022 Urea nitrogen [Mass/Vol] 15 mg/dL 7-18 [facility] Thin prep Papanicolaou smear with manual screeningOrdered By: Dr. Wiggins on 12-10-2022 Thin prep Papanicolaou smear with manual screening 24 U/L 15-37 [facility] Thin prep Papanicolaou smear with manual screening 8 5-15 [facility] Absolute lymphocyte countOrd ered By: Dr. Cabrera on 12-09-2022 Lymphocytes Auto (Unsp spec) [#/Vol] 1.60 10*3/uL 0.83-4.51 [facility] Basophil percentageOrdered B y: Dr. Cabrera on 12-09-2022 Basophils/100 WBC (Bld) 0.1 % 0-1 [facility] Eosinophils/100 WBC (Bld) 0.0 % 0-5 [facility] Neutrophils (Bld) [#/Vol] 5.3 10*3/uL 2.0-7.7 [facility] Neutrophils/100 WBC (Bld) 69.8 % 47-70 [facility] Blood lymphocytes/100 leukoc ytesOrdered By: Dr. Cabrera on 12-09-2022 Lymphocytes/100 WBC (Bld) 21.2 % 19-41 [facility] Blood monocytes/100 leukocyt esOrdered By: Dr. Cabrera on 12-09-2022 Monocytes/100 WBC (Bld) 8.5 % 0-10 [facility] Laboratory - Hematology and Cell countsOrdered By: Dr. Cabrera on 12-09-2022 Immature granulocytes/100 WBC (Bld) 0.400 % 0.0-0.9 [facility] Comment on above: IG% - Immature Granu locytes (promyelocytes, myelocytes and metamyelocytes) > 1% indicates that a LEFT SHIFT is Present. Nucleated RBC/100 WBC (Bld) [Ratio] 0 % 0-5 [facility] No Panel InformationOrdered By: Dr. Cabrera on 12-09-2022 Troponin I High Sensitivity 242 pg/mL 3.0-54.0 [facility] Comment on above: Critical Result(s) C alled at: 01:59:28 12/09/2022 by: NADIA BURLEY to A Paul RN PCU. Results read back by same. Please Note: New Test Units and Gender Specific Reference Ranges. For more information see Policy Stat Procedure Drewsey High Sensitivity Troponin (TNIH) and attachments. Absolute lymphocyte counton 12-08-2022 Lymphocytes Auto (Unsp spec) [#/Vol] 1.77 10*3/uL 0.83-4.51 [facility] Work Phone: Basophil percentageon 2022 Basophils/100 WBC (Bld) 0.3 % 0-1 [facility] Work Phone: Chloride [Moles/Vol] 107 mmol/L 98-[address] [facility] [facility] Work Phone: Eosinophils/100 WBC (Bld) 0.3 % 0-5 [facility] Work Phone: [phone] Glucose [Mass/Vol] 190 mg/dL 74-106 [facility] Work Phone: Comment on above: Fasting Glucose resu lt greater than or equal to 126 mg/dL suggests DIABETES MELLITUS per A.D.A. criteria. Neutrophils (Bld) [#/Vol] 6.5 10*3/uL 2.0-7.7 [facility] Work Phone: Neutrophils/100 WBC (Bld) 75.8 % 47-70 [facility] Work Phone: [phone] Potassium [Moles/Vol] 3.3 mmol/L 3.5-5.1 [facility] Work Phone: Comment on above: Slight Hemolysis, Re sult may be falsely increased. Sodium [Moles/Vol] 141 mmol/L 136-145 [facility] Work Phone: WBC (Bld) [#/Vol] 8.6 10*3/uL 4.4-11.0 [facility] Work Phone: Blood erythrocytes count (nu mber/volume)on 12-08-2022 RBC (Bld) [#/Vol] 4.45 10*6/uL 4.2-5.4 [facility] Work Phone: Blood hemoglobin measurement (mass/volume)on 12-08-2022 Hemoglobin (Bld) [Mass/Vol] 14.2 g/dL 12.0-15.0 [facility] Work Phone: Blood lymphocytes/100 leukoc yteson 12-08-2022 Lymphocytes/100 WBC (Bld) 20.6 % 19-41 [facility] Work Phone: [phone] Blood monocytes/100 leukocyt eson 12-08-2022 Monocytes/100 WBC (Bld) 2.8 % 0-10 [facility] Work Phone: Blood platelet mean volumeon 12-08-2022 Platelet mean volume (Bld) [Entitic vol] 9.8 fL 6.2-12.0 [facility] Work Phone: [phone] Determination of erythrocyte mean corpuscular volume (MCV)on 12-08-2022 MCV (RBC) [Entitic vol] 93.0 fL 81-99 [facility] Work Phone: Hematocrit Auto (Bld) [Volum e fraction]on 12-08-2022 Hematocrit (Bld) [Volume fraction] 41.4 % 37-47 [facility] Work Phone: Laboratory - Chemistry and C hemistry - challengeon 12-08-2022 CO2 [Moles/Vol] 25.0 mmol/L 21.0-32.0 [facility] Work Phone: Urea nitrogen/Creatinine [Mass ratio] 14.9 mg/mg 10-20 [facility] Work Phone: [phone] Laboratory - CoagulationOrde red By: Dr. Walters on 12-08-2022 aPTT Coag (Bld) [Time] 29.1 s 24.1-36.2 [facility] - Hematology and Cell countson 12-08-2022 Erythrocyte distribution width (RBC) [Entitic vol] 44.5 fL 35.1-43.9 [facility] Work Phone: [phone] Erythrocyte distribution width (RBC) [Ratio] 13.1 % 11.6-14.6 [facility] Work Phone: Immature granulocytes/100 WBC (Bld) 0.200 % 0.0-0.9 [facility] Work Phone: Comment on above: IG% - Immature Granu locytes (promyelocytes, myelocytes and metamyelocytes) > 1% indicates that a LEFT SHIFT is Present. MCH (RBC) [Entitic mass] 31.9 pg 27.0-32.0 [facility] Work Phone: Nucleated RBC/100 WBC (Bld) [Ratio] 0 % 0-5 [facility] Work Phone: MCHC Auto (RBC) [Mass/Vol]on 12-08-2022 MCHC (RBC) [Mass/Vol] 34.3 g/dL 32-36 [facility] Work Phone: No Panel Informationon 12-08 Troponin I High Sensitivity 218 pg/mL 3.0-54.0 [facility] Work Phone: Comment on above: Critical Result(s) C alled at: 22:30:52 12/08/2022 by: Yolanda marc TO [facility]. Results read back by same. Please Note: New Test Units and Gender Specific Reference Ranges. For more information see Policy Stat Procedure [place] High Sensitivity Troponin (TNIH) and attachments. Estimated Creatinine Clearance Calc 28.29 ml/min [facility] Work Phone: Estimated GFR (MDRD) Amer 49 mL/min >60 [facility] Work Phone: [phone] Comment on above: GFR Calc Estimated GFR (MDRD) Non-Af Amer 40 mL/min >60 [facility] Work Phone: Comment on above: Non- GFR Calc Platelets bldon 12-08-2022 Platelets (Bld) [#/Vol] 289 10*3/uL 150-450 [facility] Work Phone: Serum or plasma calcium tyron urement (mass/volume)on 12-08-2022 Calcium [Mass/Vol] 8.6 mg/dL 8.5-10.1 [facility] Work Phone: Serum or plasma creatinine m easurement (mass/volume)on 12-08-2022 Creatinine [Mass/Vol] 1.34 mg/dL 0.55-1.02 [facility] Work Phone: Comment on above: The validity of the calculated GFR & GFRAA in patients over 70 years has not been determined. Clinical correlation is essential. Serum or plasma urea nitroge n measurement (mass/volume)on 12-08-2022 Urea nitrogen [Mass/Vol] 20 mg/dL 7-18 [facility] Work Phone: Thin prep Papanicolaou smear with manual screeningon 12-08-2022 Thin prep Papanicolaou smear with manual screening 9 -15 [facility] Work Phone: Vital Signs Date Time Vital Sign Value Performing Clinician Faci lity 09-02-2025 04:49-0400 Body temperature 97.7 [degF] Joe Carey MD Work Phone: [facility] 09-02-2025 04:49-0400 Diastolic blood pressure 70 mm[Hg] Joe Carey MD Work Phone: [facility] 09-02-2025 04:49-0400 Heart rate 70 /min Joe Carey MD Work Phone: [facility] 09-02-2025 04:49-0400 Respiratory rate 16 /min Joe Carey MD Work Phone: [facility] 09-02-2025 04:49-0400 SaO2% (BldA) [Mass fraction] 98 % Joe Carey MD Work Phone: [facility] 09-02-2025 04:49-0400 Systolic blood pressure 152 mm[Hg] Joe Carey MD Work Phone: [facility] 09-02-2025 02:28-0400 Body height 149.86 cm Joe Carey MD Work Phone: [facility] 09-02-2025 02:28-0400 Body mass index (BMI) [Ratio] 23.8 kg/m2 Joe Carey MD Work Phone: 2(612)974-479672 [place] [address] 09-02-2025 02:28-0400 Body weight 53.6 kg Joe Carey MD Work Phone: [facility] 08-26-2025 11:40-0400 Body height 149.86 cm Joe Carey MD Work Phone: 0(619)109-674587 [address] 08-26-2025 11:38-0400 Body weight 52.16 kg Joe Carey MD Work Phone: 2(088)672-218587 [address] 08-26-2025 11:38-0400 Diastolic blood pressure 68 mm[Hg] Joe Carey MD Work Phone: 5(902)703-989113 [place] [address] 08-26-2025 11:38-0400 Heart rate 65 /min Joe Carey MD Work Phone: 4(985)975-329687 [address] 08-26-2025 11:38-0400 Systolic blood pressure 111 mm[Hg] Joe Carey MD Work Phone: 2(025)485-884787 [address] 08-01-2025 12:52-0400 Body temperature 98.2 [degF] Joe Carey MD Work Phone: 8(514)525-486313 [place] [address] 08-01-2025 12:52-0400 Diastolic blood pressure 84 mm[Hg] Joe Carey MD Work Phone: 3(587)197-958113 [place] [address] 08-01-2025 12:52-0400 Heart rate 61 /min Joe Carey MD Work Phone: 4(580)891-519272 [place] [address] 08-01-2025 12:52-0400 Respiratory rate 16 /min Joe Carey MD Work Phone: 8(591)557-348713 [place] [address] 08-01-2025 12:52-0400 SaO2% (BldA) [Mass fraction] 99 % Joe Carey MD Work Phone: 5(993)775-618672 [place] [address] 08-01-2025 12:52-0400 Systolic blood pressure 152 mm[Hg] Joe Carey MD Work Phone: 1(761)217-404987 [address] 08-01-2025 09:39-0400 Body height 149.86 cm Joe Carey MD Work Phone: 3(977)786-550213 [place] [address] 08-01-2025 09:39-0400 Body mass index (BMI) [Ratio] 23.5 kg/m2 Joe Carey MD Work Phone: 8(308)429-250013 [place] [address] 08-01-2025 09:39-0400 Body weight 52.75 kg Joe Carey MD Work Phone: 7(082)244-361413 [place] [address] 03-27-2025 07:43-0400 Body height 149.[address] Kyara Odonnell MD Work Phone: 5(224)931-551013 [place] [address] 03-27-2025 07:43-0400 Body mass index (BMI) [Ratio] 23.2 kg/m2 Dr. Kyara Odonnell MD Work Phone: 8(497)171-798813 [place] [address] 03-27-2025 07:43-0400 Body weight 52.[address] Kyara Odonnell MD Work Phone: 5(472)952-084813 [place] [address] 03-27-2025 07:43-0400 Diastolic blood pressure 71 mm[Hg] Dr. Kyara Odonnell MD Work Phone: 3(972)665-239813 [place] [address] 03-27-2025 07:43-0400 Heart rate 73 /min Dr. Kyara Odonnell MD Work Phone: 4(465)174-159713 [place] [address] 03-27-2025 07:43-0400 Respiratory rate 16 /min Dr. Kyara Odonnell MD Work Phone: 6(041)923-899113 [place] [address] 03-27-2025 07:43-0400 Systolic blood pressure 133 mm[Hg] Dr. Kyara Odonnell MD Work Phone: 8(541)714-284913 [place] [address] 12-18-2024 14:00-0500 Body height 149.[address] Kyara Odonnell MD Work Phone: 1(340)452-704513 [place] [address] 12-18-2024 13:54-0500 Body mass index (BMI) [Ratio] 23.8 kg/m2 Dr. Kyara Odonnell MD Work Phone: 4(153)870-096413 [place] [address] 12-18-2024 13:54-0500 Body temperature 97.5 [degF] Dr. Kyara Odonnell MD Work Phone: 8(186)500-118472 [place] [address] 12-18-2024 13:54-0500 Body weight 53.[address] Kyara Odonnell MD Work Phone: 1(150)079-697713 [place] [address] 12-18-2024 13:54-0500 Diastolic blood pressure 71 mm[Hg] Dr. Kyara Odonnell MD Work Phone: 7(549)407-206313 [place] [address] 12-18-2024 13:54-0500 Heart rate 68 /min Dr. Kyara Odonnell MD Work Phone: 5(985)623-090013 [place] [address] 12-18-2024 13:54-0500 Respiratory rate 18 /min Dr. Kyara Odonnell MD Work Phone: 2(271)119-946213 [place] [address] 12-18-2024 13:54-0500 SaO2% (BldA) [Mass fraction] 99 % Dr. Kyara Odonnell MD Work Phone: 0(860)735-396713 [place] [address] 12-18-2024 13:54-0500 Systolic blood pressure 127 mm[Hg] Dr. Kyara Odonnell MD Work Phone: 4(432)779-020813 [place] [address] 03-21-2023 05:49-0400 Diastolic blood pressure 74 mm[Hg] Dr. Kyara Odonnell Work Phone: 9(632)148-975572 [place] [address] 03-21-2023 05:49-0400 Heart rate 79 /min Dr. Kyara Odonnell Work Phone: 1(191)388-079072 [place] [address] 03-21-2023 05:49-0400 Respiratory rate 18 /min Dr. Kyara Odonnell Work Phone: 8(296)108-151972 [place] [address] 03-21-2023 05:49-0400 SaO2% (BldA) [Mass fraction] 100 % Dr. Kyara Odonnell Work Phone: 0(897)279-583372 [place] [address] 03-21-2023 05:49-0400 Systolic blood pressure 125 mm[Hg] Dr. Kyara Odonnell Work Phone: 7(623)846-698972 [place] [address] 03-21-2023 03:15-0400 Body height 149.[address] Kyara Odonnell Work Phone: [facility] 03-21-2023 03:15-0400 Body mass index (BMI) [Ratio] 24.9 kg/m2 Dr. Kyara Odonnell Work Phone: [facility] 03-21-2023 03:15-0400 Body temperature 97.4 [degF] Dr. Kyara Odonnell Work Phone: 8(479)794-892772 [place] [address] 03-21-2023 03:15-0400 Body weight 55.[address] Kyara Odonnell Work Phone: 6(852)102-636387 [address] 02-28-2023 13:26-0400 Body mass index (BMI) [Ratio] 24.4 kg/m2 Dr. Kyara Odonnell Work Phone: 7(575)297-327172 [place] [address] 02-28-2023 13:26-0400 Body weight 54.[address] Kyara Odonnell Work Phone: [facility] 02-28-2023 13:26-0400 Diastolic blood pressure 65 mm[Hg] Dr. Kyara Odonnell Work Phone: 6(123)550-636872 [place] [address] 02-28-2023 13:26-0400 Heart rate 69 /min Dr. Kyara Odonnell Work Phone: 7(667)868-852672 [place] [address] 02-28-2023 13:26-0400 Respiratory rate 18 /min Dr. Kyara Odonnell Work Phone: [facility] 02-28-2023 13:26-0400 SaO2% (BldA) [Mass fraction] 98 % Dr. Kyara Odonnell Work Phone: [facility] 02-28-2023 13:26-0400 Systolic blood pressure 112 mm[Hg] Dr. Kyara Odonnell Work Phone: [facility] 01-12-2023 14:16-0500 Body height 149.[address] Kyara Odonnell Work Phone: 0(765)234-747972 [place] [address] 01-12-2023 14:16-0500 Body mass index (BMI) [Ratio] 24.4 kg/m2 Dr. Kyara Odonnell Work Phone: [facility] 01-12-2023 14:16-0500 Body weight 54.[address] Kyara Odonnell Work Phone: [facility] 01-12-2023 14:16-0500 Diastolic blood pressure 71 mm[Hg] Dr. Kyara Odonnell Work Phone: [facility] 01-12-2023 14:16-0500 Heart rate 65 /min Dr. Kyara Odonnell Work Phone: [facility] 01-12-2023 14:16-0500 Respiratory rate 16 /min Dr. Kyara Odonnell Work Phone: [facility] 01-12-2023 14:16-0500 Systolic blood pressure 112 mm[Hg] Dr. Kyara Odonnell Work Phone: [facility] 12-19-2022 10:30-0500 Body height 149.[address] Kyara Odonnell Work Phone: [facility] 12-19-2022 10:30-0500 Body weight 52.[address] Kyara Odonnell Work Phone: [facility] 12-19-2022 10:16-0500 Body mass index (BMI) [Ratio] 23.4 kg/m2 Dr. Kyara Odonnell Work Phone: [facility] 12-19-2022 10:16-0500 Heart rate 72 /min Dr. Kyara Odonnell Work Phone: [facility] 12-19-2022 10:16-0500 SaO2% (BldA) [Mass fraction] 97 % Dr. Kyara Odonnell Work Phone: [facility] 12-15-2022 01:29-0500 Diastolic blood pressure 81 mm[Hg] Dr. Kyara Odonnell Work Phone: [facility] 12-15-2022 01:29-0500 Heart rate 65 /min Dr. Kyara Odonnell Work Phone: [facility] 12-15-2022 01:29-0500 Respiratory rate 16 /min Dr. Kyara Odonnell Work Phone: [facility] 12-15-2022 01:29-0500 SaO2% (BldA) [Mass fraction] 98 % Dr. Kyara Odonnell Work Phone: [facility] 12-15-2022 01:29-0500 Systolic blood pressure 145 mm[Hg] Dr. Kyara Odonnell Work Phone: [facility] 12-15-2022 00:12-0500 Body height 149.[address] Kyara Odonnell Work Phone: [facility] 12-15-2022 00:12-0500 Body mass index (BMI) [Ratio] 25 kg/m2 Dr. Kyara Odonnell Work Phone: [facility] 12-15-2022 00:12-0500 Body temperature 96.8 [degF] Dr. Kyara Odonnell Work Phone: [facility] 12-15-2022 00:12-0500 Body weight 56.[address] Kyara Odonnell Work Phone: [facility] 12-10-2022 11:41-0500 Body temperature 97.6 [degF] Dr. Kyara Odonnell Work Phone: [facility] 12-10-2022 11:41-0500 Diastolic blood pressure 80 mm[Hg] Dr. Kyara Odonnell Work Phone: [facility] 12-10-2022 11:41-0500 Heart rate 83 /min Dr. Kyara Odonnell Work Phone: [facility] 12-10-2022 11:41-0500 Respiratory rate 18 /min Dr. Kyara Odonnell Work Phone: [facility] 12-10-2022 11:41-0500 SaO2% (BldA) [Mass fraction] 94 % Dr. Kyara Odonnell Work Phone: [facility] 12-10-2022 11:41-0500 Systolic blood pressure 133 mm[Hg] Dr. Kyara Odonnell Work Phone: [facility] 12-08-2022 23:22-0500 Body height 149.[address] Kyara Odonnell Work Phone: [facility] Work Phone: 12-08-2022 23:22-0500 Body mass index (BMI) [Ratio] 23.5 kg/m2 Dr. Kyara Odonnell Work Phone: [facility] 12-08-2022 23:22-0500 Body weight 52.[address] Kyara Odonnell Work Phone: [facility] 12-08-2022 22:31-0500 Diastolic blood pressure 81 mm[Hg] [facility] Work Phone: 12-08-2022 22:31-0500 Heart rate 88 /min [facility] Work Phone: 12-08-2022 22:31-0500 Systolic blood pressure 134 mm[Hg] [facility] Work Phone: 12-08-2022 22:07-0500 Body temperature 98.9 [degF] [facility] Work Phone: 12-08-2022 22:07-0500 Respiratory rate 12 /min [facility] Work Phone: 12-08-2022 22:07-0500 SaO2% (BldA) [Mass fraction] 98 % [facility] Work Phone: 12-08-2022 18:53-0500 Body height 149.86 cm [facility] Work Phone: 12-08-2022 18:53-0500 Body mass index (BMI) [Ratio] 23.8 kg/m2 [facility] Work Phone: 12-08-2022 18:53-0500 Body weight 53.52 kg [facility] Work Phone: 06-28-2022 08:50-0400 Body height 149.86 cm [facility] Work Phone: Encounters Encounter Date Encounter Type Care Provider Facility Start: 09-07-2025 Evaluation and management of inpatient JOE CAREY Facility:[facility] Start: 09-07-2025 End: 09-07-2025 Emergency department patient visit Juan José Barahona Facility:[facility] Start: 09-02-2025 ambulatory Joe Cherry Facility:[facility] Start: 09-02-2025 End: 09-02-2025 Emergency department patient visit Joe Carey MD Work Phone: -Emergency Department Work Phone: Start: 08-26-2025 Patient encounter procedure Debra GODFREY -Laboratory Work Phone: Start: 08-26-2025 End: 08-26-2025 Patient encounter procedure Debra GODFREY -[facility] Work Phone: Start: 08-26-2025 End: 08-26-2025 ambulatory Joe Carey MD Work Phone: -[facility] Start: 08-26-2025 End: 08-26-2025 ambulatory Joe Marqueske Facility:[facility] Start: 08-01-2025 End: 08-01-2025 Emergency department patient visit Joe Carey MD Work Phone: -Emergency Department Work Phone: Start: 07-07-2025 End: 07-07-2025 ambulatory Joe Carey MD Work Phone: -[facility] Start: 07-07-2025 End: 07-07-[address] Price Madden MD -Outpatient Breast Imaging Work Phone: Start: 07-07-2025 End: 07-07-2025 ambulatory Senayaritza Cherry Facility:[facility] Start: 06-12-[address] oJe Carey MD -Laboratory [place] Work Phone: Start: 06-12-2025 ambulatory [facility] Facility:[facility] Start: 05-28-2025 End: 05-28-2025 ambulatory Joe Carey MD Work Phone: -Cat Scan [facility] Start: 05-28-2025 End: 05-28-2025 Patient encounter procedure Yin Rosales PHYSICIAN RELATIONS REPRESENTATIVE-C -Cat Scan [facility] Work Phone: Start: 05-28-2025 End: 05-28-2025 ambulatory Joe Cherry Facility:[facility] Start: 05-07-2025 ambulatory [facility] Facility:[facility] Start: 05-07-2025 Non-patient / Non-visit Dr. Abigail farfan MD -[facility]- Start: 05-07-2025 End: 05-07-2025 ambulatory Joe Carey MD Work Phone: [facility] Work Phone: Start: 05-07-2025 End: 05-07-[address] Lazaro Calles DPM -Pulmonary Services/Neurology Work Phone: Start: 05-07-2025 End: 05-07-2025 ambulatory [facility] Facility:[facility] Start: 03-27-2025 End: 03-27-[address] Kyara Odonnell MD Work Phone: [facility] Work Phone: Start: 03-27-2025 End: 03-27-2025 Patient encounter procedure Debra GODFREY -Laboratory Work Phone: Start: 03-27-2025 End: 03-27-2025 Patient encounter procedure Debra GODFREY -[facility] Work Phone: Start: 03-27-2025 End: 03-27-[facility] Start: 03-27-2025 End: 03-27-2025 ambulatory [facility] Facility:[facility] Start: 02-25-2025 End: 02-25-[address] Kyara Odonnell MD Work Phone: [facility] Work Phone: Start: 02-25-2025 End: 02-25-[address] Joe Carey MD -Radiology, [place] Work Phone: Start: 02-25-2025 End: 02-25-2025 ambulatory Joe Carey Facility:[facility] Start: 12-18-2024 End: 12-18-2024 Patient encounter procedure Debra Goodman [place] -[facility] Work Phone: Start: 12-18-2024 End: 12-18-2024 ambulatory Debra Goodman Facility:[facility] Start: 03-14-2024 End: 03-14-2024 ambulatory [facility] Work Phone: Start: 03-14-2024 End: 03-14-2024 Patient encounter procedure [facility]-Laboratory Work Phone: Start: 03-06-2024 End: 03-06-2024 ambulatory [facility] Work Phone: Start: 03-06-2024 End: 03-06-2024 [facility] Start: 01-30-2024 End: 01-30-2024 ambulatory [facility] Work Phone: Start: 01-30-2024 End: 01-30-2024 [facility] Start: 12-08-2023 End: 12-08-2023 ambulatory [facility] Work Phone: Start: 12-08-2023 End: 12-08-2023 [facility] Start: 10-03-2023 End: 10-03-2023 ambulatory [facility] Work Phone: Start: 10-03-2023 End: 10-03-2023 Patient encounter procedure [facility]-Radiology, [place] Work Phone: Start: 07-25-2023 End: 07-25-2023 ambulatory [facility] Work Phone: Start: 07-25-2023 End: 07-25-2023 Patient encounter procedure [facility]Laboratory, [facility] Start: 06-30-2023 End: 06-30-2023 ambulatory [facility] Work Phone: Start: 06-30-2023 End: 06-30-2023 Patient encounter procedure [facility]-Outpatient Breast Imaging Work Phone: Start: 05-19-2023 End: 05-26-[address] Kyara Odonnell Work Phone: [facility] Work Phone: Start: 05-19-2023 End: 05-26-[address] Kyara Odonnell Work Phone: [facility]-Cardiac Rehab Work Phone: Start: 05-02-2023 End: 05-02-[address] Kyara Odonnell Work Phone: [facility]-Pulmonary Services/Neurology Work Phone: Start: 05-02-[address] Kyara bernard Work Phone: [facility]-Cardiovascula r Services Work Phone: Start: 04-26-2023 End: 04-26-[address] Kyara Odonnell Work Phone: [facility] Work Phone: Start: 04-26-2023 End: 04-26-[address] Kyara Odonnell Work Phone: [facility]-Cardiac Rehab Start: 03-24-2023 End: 03-26-[address] Kyara Odonnell Work Phone: [facility] Work Phone: Start: 03-24-2023 End: 03-26-[address] Kyara Odonnell Work Phone: [facility]-Cardiac Rehab Start: 03-22-[address] Kyara dahl Work Phone: [facility] Start: 03-21-2023 End: 03-21-2023 Emergency department patient visit Dr. Kyara Odonnell Work Phone: [facility]-Emergency Department Start: 03-20-[address] Kyara dahl Work Phone: [facility]Cardiac [facility] Start: 03-13-2023 End: 03-13-[address] Kyara Odonnell Work Phone: [facility] Work Phone: Start: 03-13-2023 End: 03-13-[address] Kyara Odonnell Work Phone: [facility]-Laboratory Start: 02-28-2023 End: 02-28-[address] Kyara Odonnell Work Phone: [facility] Start: 01-13-2023 End: 01-13-[address] Kyara Odonnell Work Phone: [facility] Work Phone: Start: 01-13-2023 End: 01-13-[address] Kyara Odonnell Work Phone: [facility]-Pulmonary Services/Neurology Start: 01-12-2023 End: 01-12-[address] Kyara Odonnell Work Phone: [facility] Start: 12-28-2022 End: 01-24-[address] Kyara Odonnell Work Phone: [facility] Work Phone: Start: 12-28-2022 End: 01-24-[address] Kyara Odonnell Work Phone: [facility]-Cardiac Rehab Start: 12-28-[address] Kyara dahl Work Phone: [facility] Start: 12-26-2022 End: 12-27-[address] Kyara Odonnell Work Phone: [facility] Work Phone: Start: 12-26-2022 End: 12-27-[address] Kyara Odonnell Work Phone: [facility]Cardiac [facility] Start: 12-19-2022 End: 12-19-[address] Kyara Odonnell Work Phone: [facility] Work Phone: Start: 12-19-2022 End: 12-19-[address] Kyara Odonnell Work Phone: [facility] Start: 12-19-2022 End: 12-19-[address] Kyara Odonnell Work Phone: [facility] Work Phone: Start: 12-19-2022 End: 12-19-[address] Kyara Odonnell Work Phone: [facility]-Cardiac Rehab Start: 12-15-2022 End: 12-15-2022 Emergency department patient visit Dr. Kyara Odonnell Work Phone: [facility]-Emergency Department Start: 12-12-2022 End: 12-12-[address] Kyara Odonnell Work Phone: [facility] Start: 12-10-2022 Non-patient / Non-visit Dr. Marita Odonnell Work Phone: [facility] In[facility] Start: 12-10-2022 Non-patient / Non-visit Dr. Marita Odonnell Work Phone: [facility] Start: 12-09-2022 Non-patient / Non-visit Dr. Marita Odonnell Work Phone: [facility] In[facility] Start: 12-09-2022 Non-patient / Non-visit Dr. Marita Odonnell Work Phone: [facility] Start: 12-08-2022 End: 12-08-2022 Non-patient / Non-visit Dr. Kyara Odonnell Work Phone: [facility] Start: 12-08-2022 End: 12-10-2022 Evaluation and management of inpatient [facility]-Progressive Care Unit Start: 06-28-2022 End: 06-28-2022 Patient encounter procedure [facility]-Outpatient Breast Imaging Procedures Date Procedure Procedure Detail Performing Clinician Start: 09-07-2025 Antibody screen JOE CAREY Comment on above: Order Comment: Specimen Type: BLOOD SPEC IMENOrdering Facility: [facility] Address: [address] [place] [address] Performed By: #### T SCR ####[facility] BLOOD BANKCLIA [id number] [place] [address] [place] Start: 09-02-2025 End: 09-02-2025 Radex sacrum & coccyx minimum 2 views Joe Carey MD Work Phone: Start: 08-01-2025 CT cervical spine without contrast Johnathan Carey MD Work Phone: Start: 08-01-2025 CT of head without contrast Joe Carey MD Work Phone: Start: 07-07-2025 Screening mammography Joe Carey MD Work Phone: Start: 06-12-2025 Procedure Joe Carey MD Work Phone: Comment on above: Test Ordered: [id number] Vitamin K1Test(s) 1 27747-Crpqxse K1was developed and its performance characteristicsdetermined by [employer]. It has not been cleared or approvedby the Food and Drug Administration.Vitamin K1 0.76 ng/mL Reference Range: 0.10-2.20Performed at: [facility] - [address] [id number] Director: Fawad Haider MD, Phone: [phone] at: [address] [id number] Director: German Beatty PhD, Phone: [phone] Start: 06-12-2025 Vitamin D, 25-hydroxy measurement Joe Carey MD Work Phone: Comment on above: Vitamin D StatusDeficiency: <20 ng/mL (5 0nmol/L)Insufficiency: 20-30 ng/mL (50-75 nmol/L)Sufficiency: 30-100 ng/mL (75-250 nmol/L)Toxicity: >100 ng/mL (>250 nmol/L) Start: 05-28-2025 CT of head without contrast Joe Carey MD Work Phone: Start: 02-25-2025 X-ray of chest, PA and lateral views Dr. Kyara Odonnell MD Work Phone: Start: 12-08-2023 Plain X-ray of tibia and fibula Start: 10-03-2023 Diagnostic radiography of abdomen, decubitus and erect Start: 06-30-2023 Screening mammography Start: 03-21-2023 Plain chest X-ray Dr. Kyara Odonnell Work Phone: Start: 12-09-2022 History of placement of stent for coronary artery disease History of coronary artery stent placement Debra GODFREY Comment on above: Osiro 2.5 X 9 FARRUKH to first OM ostial, an d Osiro 4.0 X 9 FARRUKH to CX 11/2022 Start: 12-08-2022 Plain chest X-ray Start: 06-28-2022 Screening mammography Plan of Treatment Date Care Activity Detail Author Start: 09-24-2025 ambulatory Ambulatory Facility:[facility] Start: 09-02-2025 [facility] Start: 08-26-2025 End: 08-26-2025 Evaluation of diagnostic study results [facility] Start: 08-01-2025 [facility] Start: 03-27-2025 Evaluation of diagnostic study results [facility] Start: 12-10-2022 Patient discharge [facility] Start: 12-09-2022 Patient referral [facility] Work Phone: Start: 12-09-2022 Cardiac monitoring [facility] Start: 12-09-2022 Cardiac rehabilitation - phase 1 [facility] Start: 12-09-2022 Cardiac rehabilitation - phase 2 [facility] Start: 12-09-2022 Notification of physician [facility] Start: 12-09-2022 Patient discharge [facility] Start: 12-09-2022 Patient education [facility] Start: 12-09-2022 Provision of activity privileges [facility] Start: 12-09-2022 Pulse taking [facility] Start: 12-09-2022 Systemic arterial pressure monitoring [facility] Start: 12-09-2022 Taking patient vital signs [facility] Start: 12-09-2022 Vascular disease risk assessment [facility] Start: 12-09-2022 Vital signs measurements [facility] Start: 12-09-2022 Wound care [facility] Start: 12-09-2022 End: 12-09-2022 [facility] Start: 12-09-2022 Cardiac rehabilitation assessment [facility] Start: 12-09-2022 Referral to hydroelectric plant technician [facility] Start: 12-08-2022 Oxygen therapy [facility] Start: 12-08-2022 Tobacco use cessation education [facility] Start: 12-08-2022 End: 12-08-2022 [facility] Start: 12-08-2022 Assessment of risk of venous thromboembolism [facility] Start: 12-08-2022 Insertion of catheter into peripheral vein [facility] Start: 12-08-2022 Measuring intake and output [facility] Start: 12-08-2022 Providing care according to standard [facility] Start: 12-08-2022 Provision of activity privileges [facility] Start: 01-12-2023 Referral to occupational therapist [facility] Start: 12-08-2022 Referral to service [facility] Start: 12-08-2022 Following clinical pathway protocol [facility] Start: 12-08-2022 Admission procedure [facility] Start: 12-08-2022 [facility] Work Phone: Start: 06-28-2022 Dual energy X-ray absorptiometry Dexa Bone Density Study [facility] Work Phone: Lipid 1996 panel - S iesha or Plasma [facility] Patient Education [facility] Work Phone: Patient referral [facility] Work Phone: [facility] Immunizations Immunization Date Immunization Notes Care Provider Angela davila 08-14-2017 Influenza virus vaccine [facility] 10-15-2015 Influenza virus vaccine [facility] Payers Date Payer Category Payer Self-pay [id number] 2012 Private Health Insurance 101 [id number] Unknown [id number] 2.16.8 [id number] Unknown [id number] 2.16.8 [id number] Unknown [id number] 2.16.8 [id number] Unknown [id number] 2.16.8 [id number] Unknown [id number] 2.16.8 [id number] Unknown [id number] 2.16.8 [id number] Unknown [id number] 2.16.8 [id number] Unknown [id number] 2.16.8 [id number] Unknown [id number] 2.16.8 [id number] Unknown [id number] 2.16.8 [id number] Unknown [id number] 2.16.8 [id number] Unknown [id number] 2.16.8 [id number] Unknown [id number] 2.16.8 [id number] Unknown [id number] 2.16.8 [id number] Unknown [id number] 2.16.8 [id number] Unknown [id number] 2.16.8 [id number] Social History Date Type Detail Facility Start: 08-09-2021 End: 03-21-2023 Tobacco smoking status NHIS Unknown if ever smoked [facility] Start: 11-30-2017 None [facility] Start: 11-30-2017 Spouse/ Signif icant Other [facility] Start: 11-30-2017 Non-smoker [facility] Start: 1940 Sex Assigned At Female W [facility] Start: 03-21-2023 End: 09-02-2025 Tobacco smoking status NHIS Never smoked tobacco (finding) [facility] Start: 03-03-2025 Sex Female (finding) [facility] Sex Female [facility] Medical Equipment Procedure Code Equipment Code Equipment Origin al Text Equipment Identifier Dates ([id number]) Drug-eluting coronary artery stent, bioabsorbable-polyme r-coated ()[id number] FDA Start: 12-09-2022 ([id number]) Drug-eluting coronary artery stent, bioabsorbable-polyme r-coated ()[id number] FDA Start: 12-09-2022 Functional Status Date Assessment Result Facility 12-10-2022 Functional status Ambulates;Up ad t[facility] Work Phone: Mental Status Date Assessment Result Facility 03-21-2023 Cognitive function Voice/Name [facility] Work Phone: 12-15-2022 Cognitive function Level Of Cons ciousness Awake;Alert;Appropriate [facility] Work Phone: 12-10-2022 Cognitive function Voice/Name [facility] Work Phone: 12-08-2022 Cognitive function Voice/Name [facility] Work Phone: Clinical Notes 12-09-2022 to 09-13-2025 Note Date & Type Note Facility 09-13-2025 Note HNO ID: [id number] Author: GARRETT CARDONA PA-C Service: General Surgery Author Type: Physician Sailing Master Type: Progress Notes Filed: 09/13/2025 08:05 Note Text: Trauma Surgery Progress Note SERVICE DATE: 09/13/2025 Trauma Service Pager: For questions or concerns Mon-Fri 6a-5p please page [phone]. After 5pm and on Weekends and Holidays, please page [phone] if in ICU or [phone] if on RNF. SUBJECTIVE: Patient denied any new or acute events overnight. She was awake, alert, and pleasant. Her headaches are controlled. She is tolerating her diet and having bowel function. She again denied any CP, Shortness of Breath, N/V, or ABD pain. Awaiting AR placement (bed available tomorrow). OBJECTIVE: Vitals: Temp (24hrs), Av.8 ?C (98.3 ?F), Min:36.7 ?C (98.1 ?F), Max:36.9 ?C (98.4 ?F) BP 134/70 Pulse 71 Temp 36.8 ?C (98.3 ?F) (Oral) Resp 16 Ht 149.9 cm (4' 11") Wt 52.2 kg (115 lb 1.3 oz) SpO2 96% BMI 23.24 kg/m? O2 Therapy: Room Air IANDO: Date 09/12/25 07 - 09/13/25 0659 09/13/25 07 - 09/14/25 0659 Shift 5457-4217 8667-7109 6382-6753 24 Hour Total 6244-6201 1568-8310 0644-6068 24 Hour Total INTAKE PO 460 460 PO 460 460 Shift Total 460 460 OUTPUT Urine 300 300 Void (ml) 300 300 Urine Not Saved. 1 x 2 x 3 x 1 x 1 x Shift Total 300 300 Weight (kg) 52.2 52.2 52.2 52.2 52.2 52.2 52.2 52.2 MEDICATIONS Current Facility-Administered Medications Medication Dose Route Frequency senna-docusate 8.6-50 mg 1 tablet (SENNA-S) 1 tablet ORAL BID losartan 100 mg tab(s) (COZAAR) 100 mg ORAL DAILY phosphorus 250 mg tab(s) (K PHOS NEUTRAL) 250 mg ORAL PC and HS acetaminophen 650 mg tab(s) (TYLENOL) 650 mg ORAL q 4 H PRN oxyCODONE IR 2.5 mg tab(s) (ROXICODONE) 2.5 mg ORAL q 6 H PRN labetalol 5 mg injection syringe (NORMODYNE) 5 mg INTRAVENOUS q 2 H PRN hydrALAZINE 10 mg injection (APRESOLINE) 10 mg INTRAVENOUS q 6 H PRN melatonin 9 mg tab(s) 9 mg ORAL DAILY (8 PM) prochlorperazine 5 mg tab(s) (COMPAZINE) 5 mg ORAL q 6 H PRN metoprolol succinate ER 25 mg tab(s) (TOPROL XL) 25 mg ORAL DAILY NaCl 0.9% iv flush bag 20 mL INTRAVENOUS PRN ondansetron 4 mg tab(s) (ZOFRAN) 4 mg ORAL q 6 H PRN Or ondansetron (PF) 4 mg injection (ZOFRAN) 4 mg INTRAVENOUS q 6 H PRN NaCl 0.9% iv flush bag 20 mL INTRAVENOUS PRN Labs: Recent Labs 09/12/25 0554 09/11/25 0508 NA 141 141 K 3.8 3.3* CHLOR 106 105 CO2 24 25 BUN 11 8 CREAT 0.74 0.75 GLUC 96 96 ANION 11 11 CA 8.9 8.6 P 3.7 3.1 WBC 7.47 6.99 HB 11.8 10.7* HCT 35.1* 32.3* PLT 277 256 PHYSICAL EXAM: Genl: Appears age appropriate. No acute distress. Resting comfortably. Head/Face: Normocephalic. Yenni hole sites with clean dressings in place. Eyes: EOMI. Sclera not icteric, not injected Resp: No audible wheezes. Breathing is non-labored on RA CVS: HR as above; 2+ pulses at RA, DP bilat. GI: Abdomen is soft, non-tender, not distended. No peritonitis. MSK: Extremities without clubbing, cyanosis, edema. Normal ROM x 4. Skin: Warm and dry. Not jaundiced. Neuro: AANDOx3. GREY. Gross motors and sensation intact. Speech clear. No facial droop. Follows commands. GCS 15. Psych: Normal mood and affect. ASSESSMENT AND PLAN: Active Hospital Problems Diagnosis Date Noted Subdural hematoma (HCC) 09/07/2025 Acute post-traumatic headache, not intractable 09/12/2025 Unsteady gait when walking 09/12/2025 Closed compression fracture of sacrum (HCC) 09/12/2025 Bilateral subdural hematomas (HCC) 09/12/2025 Fall 09/08/2025 Sacral fracture, closed (HCC) 09/08/2025 Hypertension 09/06/2025 Hyperlipidemia 08/26/2025 Overview Note: Comment on above: intolerant of statins 84 year old female s/p reported mechanical GLF on 09/02/2025 (Initially presented to [facility]) Imaging performed: CT H/N/C/A/P and repeat CT Brain on 09/08/2025 CT Brain on 09/10/2025 CT brain on 09/11/2025 Traumatic Injuries: Bilateral intermediate density subdural hemorrhages Reported S5 facture (not noted on CT A/P) Operations/Procedures: 1. 09/08/2025 - bilateral yenni hole evacuation of subdural hematomas (Dr. Bui) 2. 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 [facility] 09-12-2025 Note HNO ID: [id number] Author: FILIBERTO MCKEON LSW Service: Care Management Author Type: Hvac Mechanical Engineer Type: Care Mgt Progress Note Filed: 09/12/2025 16:09 Note Text: CARE MANAGEMENT PROGRESS NOTE SERVICE DATE: 09/12/2025 SERVICE TIME: 1:17 PM LOS: 5 days Reviewed chart and met with the Pt and her dtr at bedside. Insurance auth remains pending. Pt is medically ready for dc when auth is received. DC packet with the chart for when auth is obtained. Addendum 1600- Auth approved for Pt to dc to [facility]. Bed not available until Monday. CM to follow over the weekend and coordinate with [facility] when Pt is medically ready for dc and bed availability. Pt and Pt's dtr updated. SIGNATURE: TOBIAS Nicole PATIENT NAME: Sharon Love DATE: September 12, 2025 TIME: 1:17 PM [facility] 09-12-2025 Note HNO ID: [id number] Author: GARRETT CARDONA PA-C Service: General Surgery Author Type: Physician Sailing Master Type: Progress Notes Filed: 09/12/2025 09:32 Note Text: Trauma Surgery Progress Note SERVICE DATE: 09/12/2025 Trauma Service Pager: For questions or concerns Mon-Fri 6a-5p please page [phone]. After 5pm and on Weekends and Holidays, please page [phone] if in ICU or [phone] if on RNF. SUBJECTIVE: NAEON. Patient was awake, alert, and pleasant. Her headaches are controlled. She is tolerating her diet and having bowel function. She denied any CP, Shortness of Breath, N/V, or ABD pain. Awaiting AR placement. OBJECTIVE: Vitals: Temp (24hrs), Av.7 ?C (98.1 ?F), Min:36.6 ?C (97.8 ?F), Max:36.9 ?C (98.5 ?F) BP 145/78 Pulse (!) 58 Temp 36.6 ?C (97.8 ?F) (Oral) Resp 18 Ht 149.9 cm (4' 11") Wt 52.2 kg (115 lb 1.3 oz) SpO2 96% BMI 23.24 kg/m? O2 Therapy: Room Air IANDO: Date 09/11/25699 - 09/12/2565809/12/25699 - 09/13/2559 Shift 0713-6638 3920-3199 2987-3663 24 Hour Total 8585-5310 1222-9396 2580-5866 24 Hour Total INTAKE PO 460 460 920 460 460 PO 460 460 920 460 460 Shift Total 460 460 920 460 460 OUTPUT Urine 946 120 2433 300 300 Void (ml) 587 343 2786 300 300 Urine Not Saved. 2 x 3 x 5 x # of BMs Number of BMs 1 x 1 x Shift Total 879 361 2112 300 300 Weight (kg) 52.2 52.2 52.2 52.2 52.2 52.2 52.2 52.2 MEDICATIONS Current Facility-Administered Medications Medication Dose Route Frequency senna-docusate 8.6-50 mg 1 tablet (SENNA-S) 1 tablet ORAL BID losartan 100 mg tab(s) (COZAAR) 100 mg ORAL DAILY phosphorus 250 mg tab(s) (K PHOS NEUTRAL) 250 mg ORAL PC and HS acetaminophen 650 mg tab(s) (TYLENOL) 650 mg ORAL q 4 H PRN oxyCODONE IR 2.5 mg tab(s) (ROXICODONE) 2.5 mg ORAL q 6 H PRN labetalol 5 mg injection syringe (NORMODYNE) 5 mg INTRAVENOUS q 2 H PRN hydrALAZINE 10 mg injection (APRESOLINE) 10 mg INTRAVENOUS q 6 H PRN melatonin 9 mg tab(s) 9 mg ORAL DAILY (8 PM) prochlorperazine 5 mg tab(s) (COMPAZINE) 5 mg ORAL q 6 H PRN metoprolol succinate ER 25 mg tab(s) (TOPROL XL) 25 mg ORAL DAILY NaCl 0.9% iv flush bag 20 mL INTRAVENOUS PRN ondansetron 4 mg tab(s) (ZOFRAN) 4 mg ORAL q 6 H PRN Or ondansetron (PF) 4 mg injection (ZOFRAN) 4 mg INTRAVENOUS q 6 H PRN NaCl 0.9% iv flush bag 20 mL INTRAVENOUS PRN Labs: Recent Labs 09/12/25 0554 09/11/25 0508 09/10/25 0343 NA 141 141 137 K 3.8 3.3* 4.2 CHLOR 106 105 103 CO2 24 25 25 BUN 11 8 11 CREAT 0.74 0.75 0.88 GLUC 96 96 95 ANION 11 11 9 CA 8.9 8.6 8.4* MG -- -- 2.2 P 3.7 3.1 3.3 WBC 7.47 6.99 8.47 HB 11.8 10.7* 10.1* HCT 35.1* 32.3* 30.7* PLT 277 256 229 PHYSICAL EXAM: Genl: Appears age appropriate. No acute distress. Resting comfortably. Head/Face: Normocephalic. Yenni hole sites with clean dressings in place. Eyes: EOMI. Sclera not icteric, not injected Resp: No audible wheezes. Breathing is non-labored on RA CVS: HR as above; 2+ pulses at RA, DP bilat. GI: Abdomen is soft, non-tender, not distended. No peritonitis. MSK: Extremities without clubbing, cyanosis, edema. Normal ROM x 4. Skin: Warm and dry. Not jaundiced. Neuro: AANDOx3. GREY. Gross motors and sensation intact. Speech clear. No facial droop. Follows commands. GCS 15. Psych: Normal mood and affect. ASSESSMENT AND PLAN: Active Hospital Problems Diagnosis Date Noted Subdural hematoma (HCC) 09/07/2025 Fall 09/08/2025 Sacral fracture, closed (HCC) 09/08/2025 Hypertension 09/06/2025 Hyperlipidemia 08/26/2025 Overview Note: Comment on above: intolerant of statins 84 year old female s/p reported mechanical GLF on 09/02/2025 (Initially presented to [facility]) Imaging performed: CT H/N/C/A/P and repeat CT Brain on 09/08/2025 CT Brain on 09/10/2025 CT brain on 09/11/2025 Traumatic Injuries: Bilateral intermediate density subdural hemorrhages Reported S5 facture (not noted on CT A/P) Operations/Procedures: 1. 09/08/2025 - bilateral yenni hole evacuation of subdural hematomas (Dr. Bui) 2. 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 [facility] 09-11-2025 Note HNO ID: [id number] Author: JOHNNY LIMA PA-C Service: General Surgery Author Type: Physician Sailing Master Type: Progress Notes Filed: 09/11/2025 14:08 Note Text: Documentation Query Mass effect was noted on the patient's CT Brain. ICD 10 does not recognize this term and we cannot code from radiology. Please clarify the clinical significance of the findings: Brain compression present and clinically significant This document will become part of the patient's medical record. [facility] 09-11-2025 Note HNO ID: [id number] Author: LES JACK RN Service: Care Management Author Type: Registered Nurse Type: Care Mgt Initial Assessment Filed: 09/11/2025 15:19 Note Text: CARE MANAGEMENT: ASSESSMENT AND DISCHARGE PLAN SERVICE DATE: September 11, 2025 SERVICE TIME: 10:41 AM PCP: Joe Carey MD (Confirmed with patient) Primary Contact: Extended Emergency Contact Information Primary Emergency Contact: Tammi Simeon Mobile Relation: Daughter Secondary Emergency Contact: CHETNA LOVE Relation: Spouse Admission Status: Inpatient Insurance Provider: [employer] MEDICARE PPO Discharge Planning requested by: Per Department Practice Potential Transition Plans Rehab Facility Advance Directives Current Advance Directive: Health Care Power of Whiteprinting Machine Operator, Living Will In Chart: No Current Living Arrangements and Support Lives with: Spouse/significant other Type of Residence: Private Residence (Apartment or Condo) Support: Family members, Spouse/significant other How do you manage to accomplish the following: Independent: Ambulation, Dress, Bathe/Shower, Meals/Meal Prep, Going to the bathroom, Medication Management, Transportation to appointments/community Current Services/Equipment Current Post-Acute Service(s): None Discharge Planning Patient Goal(s): General wellness, Increase strength [place] Explained: [place] Given: Yes Level of Care Discussed: Inpatient Rehab Facility Are you interested in bedside delivery of your medications? Yes Discharge Planning Participant(s): Patient, Spouse/significant other, Family Caregiver Assessment: Caregiver is ready, willing and able to meet the patient's needs as recommended by the inter-professional team: Yes Transport at Discharge: Transportation Arrangements: To Be Determined Needs Prior to Discharge: Needs Prior to Discharge: Accepting Facility, Bed Availability, Insurance Authorization, Discharge Transportation Post-Acute Discharge Plan: Chart reviewed. S/p fall. Bilateral SDH. S5 fracture. PT/OT recommend acute rehab. Spoke with patient and patient's family at the bedside. Explained care management role. Patient resides with her spouse Chetna in [place], [place]. One level condo. At baseline patient is independent with mobility and personal care. Retired. Does not utilize any ambulation devices. Drives. Manages her own medication. Discussed therapy recommendations and placement options. Patient's preference is [facility] due to location. Facility notified. Awaiting acceptance. Will need insurance authorization. ADDENDUM 09/11/25 1518: [facility] is able to accept patient. Awaiting insurance authorization and bed availability. Will continue to follow clinical course for further transitional/discharge planning needs. SIGNATURE: Les Jack RN PATIENT NAME: Sharon Love DATE: September 11, 2025 TIME: 10:41 AM [facility] 09-11-2025 Note HNO ID: [id number] Author: LES JACK RN Service: Care Management Author Type: Registered Nurse Type: Care Mgt Progress Note Filed: 09/11/2025 10:39 Note Text: CARE MANAGEMENT PROGRESS NOTE SERVICE DATE: 09/11/2025 SERVICE TIME: 10:39 AM LOS: 4 days IMM Follow Up Copy Given: Yes Copy given to:: Patient Method: In Person SIGNATURE: Les Jack RN PATIENT NAME: Sharon Love DATE: September 11, 2025 TIME: 10:39 AM [facility] 09-11-2025 Note HNO ID: [id number] Author: JOHNNY LIMA PA-C Service: General Surgery Author Type: Physician Sailing Master Type: Progress Notes Filed: 09/11/2025 08:00 Note Text: Trauma Surgery Progress Note SERVICE DATE: 09/11/2025 Trauma Service Pager: For questions or concerns Mon-Fri 6a-5p please page [phone]. After 5pm and on Weekends and Holidays, please page [phone] if in ICU or [phone] if on RNF. SUBJECTIVE: NAEON. Patient states that she feels good with minimal CALDERÓN. Denies visual changes, lightheadedness or dizziness. Tolerating diet. Denies back pain. No other focal concerns. OBJECTIVE: Vitals: Temp (24hrs), Av.6 ?C (97.9 ?F), Min:36.1 ?C (97 ?F), Max:36.9 ?C (98.5 ?F) BP 156/95 Pulse 72 Temp 36.6 ?C (97.9 ?F) (Oral) Resp 16 Ht 149.9 cm (4' 11") Wt 52.2 kg (115 lb 1.3 oz) SpO2 97% BMI 23.24 kg/m? O2 Therapy: Room Air IANDO: Date 09/10/25699 - 09/11/2559 09/11/25699 - 09/12/25 0659 Shift 5814-3102 6548-2882 3030-5451 24 Hour Total 8958-4374 9212-7723 8670-7258 24 Hour Total INTAKE PO 180 180 PO 180 180 Shift Total 180 180 OUTPUT Urine 300 2385 381 3095 Void (ml) 300 7205 265 1396 Urine Not Saved. 1 x 2 x 3 x # of BMs Number of BMs 1 x 1 x 2 x Shift Total 300 1705 900 8153 Weight (kg) 52.2 52.2 52.2 52.2 52.2 52.2 52.2 52.2 MEDICATIONS Current Facility-Administered Medications Medication Dose Route Frequency losartan 100 mg tab(s) (COZAAR) 100 mg ORAL DAILY phosphorus 250 mg tab(s) (K PHOS NEUTRAL) 250 mg ORAL PC and HS acetaminophen 650 mg tab(s) (TYLENOL) 650 mg ORAL q 4 H PRN oxyCODONE IR 2.5 mg tab(s) (ROXICODONE) 2.5 mg ORAL q 6 H PRN labetalol 5 mg injection syringe (NORMODYNE) 5 mg INTRAVENOUS q 2 H PRN hydrALAZINE 10 mg injection (APRESOLINE) 10 mg INTRAVENOUS q 6 H PRN melatonin 9 mg tab(s) 9 mg ORAL DAILY (8 PM) prochlorperazine 5 mg tab(s) (COMPAZINE) 5 mg ORAL q 6 H PRN metoprolol succinate ER 25 mg tab(s) (TOPROL XL) 25 mg ORAL DAILY NaCl 0.9% iv flush bag 20 mL INTRAVENOUS PRN ondansetron 4 mg tab(s) (ZOFRAN) 4 mg ORAL q 6 H PRN Or ondansetron (PF) 4 mg injection (ZOFRAN) 4 mg INTRAVENOUS q 6 H PRN NaCl 0.9% iv flush bag 20 mL INTRAVENOUS PRN Labs: Recent Labs 09/11/25 0508 09/10/25 0343 09/09/25 0236 NA 141 137 137 K 3.3* 4.2 4.3 CHLOR 105 103 101 CO2 25 25 20* BUN 8 11 16 CREAT 0.75 0.88 0.86 GLUC 96 95 122* ANION 11 9 16* CA 8.6 8.4* 8.7 MG -- 2.2 2.2 P 3.1 3.3 4.9* WBC 6.99 8.47 12.34* HB 10.7* 10.1* 12.0 HCT 32.3* 30.7* 35.8* PLT 256 229 272 PHYSICAL EXAM: Genl: Appears age appropriate. No acute distress. Resting comfortably. Head/Face: Normocephalic. [place] hole sites with clean dressings in place. Eyes: EOMI. Sclera not icteric, not injected Resp: No audible wheezes. Breathing is non-labored on RA CVS: HR as above; 2+ pulses at RA, DP bilat. GI: Abdomen is soft, non-tender, not distended. No peritonitis. MSK: Extremities without clubbing, cyanosis, edema. Normal ROM x 4. Skin: Warm and dry. Not jaundiced. Neuro: AANDOx3. GREY. Gross motors and sensation intact. Speech clear. No facial droop. Follows commands. GCS 15. Psych: Normal mood and affect. ASSESSMENT AND PLAN: Active Hospital Problems Diagnosis Date Noted Subdural hematoma (HCC) 09/07/2025 Fall 09/08/2025 Sacral fracture, closed ([facility]) 09/08/2025 Hypertension 09/06/2025 Hyperlipidemia 08/26/2025 Overview Note: Comment on above: intolerant of statins 84 year old female s/p reported mechanical GLF on 09/02/2025 (Initially presented to [facility]) Imaging performed: See chart review imaging tab Traumatic Injuries: Bilateral intermediate density subdural hemorrhages Reported S5 facture (not noted on CT A/P) Operations/Procedures: 1. 09/08/2025 - bilateral yenni hole evacuation of subdural hematomas (Dr. Bui) 2. 09/09/2025 - MMA embolization Care Plan: Bilateral SDH NSGY following NIL consulted POD#3 s/p bilateral yenni holes as above Post-procedure day #2 s/p MMA emoblization Q4hr neuro checks No Keppra per NSGY Hold DVT chemo ppx Hold home low-dose ASA CT Brain (09/10) - acute interval bleeding in left surgical bed Repeat CT brain 09/11/2025 pending PT/OT MASS COMMUNICATIONS INSTRUCTOR for cognitive evaluation BP goal < 160 systolic S5 fracture Reportedly diagnosed at [facility] on 09/02/2025 CT A/P completed on arrival to [facility] does not report fracture Patient has no significant back pain Patient reportedly has outpatient follow-up with spine surgery arranged by [facility] Continue home medications as ordered Current diet order: DIET REGULAR Pain regimen: PRN Tylenol, oxycodone Bowel regimen: NA Labs: As above PPX: DVT: SCD's, Mobilize Ulcer: NA Vit D level if > 65 yo: 44.4 Consulted Services: Trauma SICU NSGY NIL PT/OT MASS COMMUNICATIONS INSTRUCTOR Dispo Planning: PT/OT recs AR. Case management following. Incidentals: None Follow Up Needs: NSGY - Dr. Bui - timing TBD PCP Sp (more content not included)... [facility] 09-10-2025 Note HNO ID: [id number] Author: SHERMAN BETH MD Service: General Surgery Author Type: Resident Type: Plan of Care Filed: 09/10/2025 13:28 Note Text: General Surgery Transfer: SICU to [facility] Patient initially presented to [facility] ED on 09/07/25 as a trauma transfer from OSH with a concern for bilateral SDH that she sustained in a GLF on 09/02/25. She also sustained a S5 sacral fracture during that GLF that she will follow-up with outpatient spine. Due to SDH, patient then underwent bilateral yenni hole procedure on 09/08/25. Patient also then underwent MMA with NIL on 09/09/25. Patient had no complications from either procedure. CT head on 09/10/25 showed some acute blood in left surgical bed but neurosurgery reports that patient is stable and okay for [facility]. Repeat CT head on 09/11. Patient okay to transfer to [facility] at this time. Thank you. Sherman Beth MD General Surgery [facility] 09-10-2025 Note HNO ID: [id number] Author: NICK TAO MD Service: General Surgery Author Type: Physician Type: Progress Notes Filed: 09/10/2025 11:19 Note Text: Trauma Surgery Progress Note SERVICE DATE: 09/10/2025 Trauma Service Pager: For questions or concerns Mon-Fri 6a-5p please page [phone]. After 5pm and on Weekends and Holidays, please page [phone] if in ICU or [phone] if on [facility]. SUBJECTIVE: Patient seen and examined. Remains in PACU awaiting SICU bed. She is up in the chair brushing her teeth this morning. Feels well. Minimal headache. Tolerated some dinner last night without issue. OBJECTIVE: Vitals: Temp (24hrs), Av.3 ?C (97.4 ?F), Min:36.1 ?C (97 ?F), Max:36.5 ?C (97.7 ?F) BP 121/75 Pulse (!) 58 Temp 36.1 ?C (97 ?F) Resp 16 Ht 147.3 cm (4' 10") Wt 49.4 kg (109 lb) SpO2 100% BMI 22.78 kg/m? O2 Therapy: Room Air IANDO: Date 09/09/25 07 - 09/10/25 0659 09/10/25 0700 - 09/11/25 0659 Shift 1522-9462 4938-6638 7668-6079 24 Hour Total 0947-3569 7025-2494 1380-6007 24 Hour Total INTAKE PO 560 240 800 PO 560 240 800 IV 3200 150 3350 OR Crystalloid intake (mL) 900 900 Volume (mL) (NaCl 0.9% iv infusion) 150 150 Volume (mL) (NaCl 0.9% iv infusion) 2300 2300 Other 132 132 OR 132 132 Shift Total 3332 971 852 3793 OUTPUT Urine 0 3692 338 0884 Void (ml) 600 250 850 Output ([REMOVED] External Collection Device 09/09/25 1013 [facility] 09/09/25 1606) 0 700 700 # of BMs Number of BMs 2 x 2 x Shift Total 0 7127 041 0488 Weight (kg) 49.4 49.4 49.4 49.4 49.4 49.4 49.4 49.4 MEDICATIONS: Current Facility-Administered Medications Medication Dose Route Frequency acetaminophen 650 mg tab(s) (TYLENOL) 650 mg ORAL q 4 H PRN oxyCODONE IR 2.5 mg tab(s) (ROXICODONE) 2.5 mg ORAL q 6 H PRN amLODIPine 2.5 mg tab(s) (NORVASC) 2.5 mg ORAL DAILY labetalol 5 mg injection syringe (NORMODYNE) 5 mg INTRAVENOUS q 2 H PRN hydrALAZINE 10 mg injection (APRESOLINE) 10 mg INTRAVENOUS q 6 H PRN melatonin 9 mg tab(s) 9 mg ORAL DAILY (8 PM) polyethylene glycol 3350 17 g packet 17 g ORAL DAILY prochlorperazine 5 mg tab(s) (COMPAZINE) 5 mg ORAL q 6 H PRN metoprolol succinate ER 25 mg tab(s) (TOPROL XL) 25 mg ORAL DAILY NaCl 0.9% iv flush bag 20 mL INTRAVENOUS PRN NaCl 0.9% iv infusion 75 mL/hr INTRAVENOUS CONTINUOUS potassium chloride 20-40 mEq oral powder (KLOR-CON) 20-40 mEq ORAL/FEEDING TUBE PRN Or potassium chloride iv piggyback 20 mEq/100 mL 20 mEq INTRAVENOUS PRN sodium phosphate 30 mmol in D5W 250 mL 30 mmol INTRAVENOUS PRN(NO DISPENSE) Or sodium phosphate 45 mmol in D5W 250 mL 45 mmol INTRAVENOUS PRN(NO DISPENSE) magnesium sulfate iv piggyback in sterile water 2 g 50 mL 2 g INTRAVENOUS PRN calcium gluconate iv piggyback 2 g in NaCl (iso-osmotic) 100 mL 2 g INTRAVENOUS PRN(NO DISPENSE) ondansetron 4 mg tab(s) (ZOFRAN) 4 mg ORAL q 6 H PRN Or ondansetron (PF) 4 mg injection (ZOFRAN) 4 mg INTRAVENOUS q 6 H PRN senna-docusate 8.6-50 mg 1 tablet (SENNA-S) 1 tablet ORAL BID NaCl 0.9% iv flush bag 20 mL INTRAVENOUS PRN Labs: Recent Labs 09/10/25 0343 09/09/25 0236 09/08/25 0413 09/07/25 2233 09/07/25 2233 NA 137 137 138 -- 138 K 4.2 4.3 4.2 -- 3.8 CHLOR 103 101 104 -- 103 CO2 25 20* 23 -- 24 BUN 11 16 19 -- 21 CREAT 0.88 0.86 0.86 -- 0.81 GLUC 95 122* 96 -- 89 ANION 9 16* 11 -- 11 CA 8.4* 8.7 8.8 -- 9.2 MG 2.2 2.2 2.3 < > -- P 3.3 4.9* 4.1 < > -- ALB -- -- -- -- 4.4 AST -- -- -- -- 29 ALT -- -- -- -- 17 ALKPHOS -- -- -- -- 77 TBILI -- -- -- -- 0.4 WBC 8.47 12.34* 7.04 -- 7.99 HB 10.1* 12.0 11.8 -- 12.5 HCT 30.7* 35.8* 35.4* -- 37.6 PLT 229 272 263 -- 258 INR -- -- 1.0 -- 1.0 < > = values in this interval not displayed. PHYSICAL EXAM: GENERAL: Alert. No distress. Resting comfortably. NEURO: AANDOx3. No focal neurologic deficits. Sensation grossly intact. HEENT: Normocephalic. EOMI. Incision site C/D/I LUNGS: Unlabored breathing. Equal excursion bilaterally. CARDIAC: Regular rate. Good perfusion throughout. ABDOMEN: Soft, non-tender, non-distended. No rebound or guarding. EXTREMITIES: GREY. No deformities. Mild pain over sacrum SKIN: No obvious jaundice or pallor. ASSESSMENT AND PLAN: Assessment Active Hospital Problems Diagnosis Date Noted Subdural hematoma (HCC) 09/07/2025 Fall 09/08/2025 Sacral fracture, closed (HCC) 09/08/2025 Hypertension 09/06/2025 Hyperlipidemia 08/26/2025 Overview Note: Comment on above: intolerant of statins 84 year old female PMH HTN, HLD, remote roscoe and hysterectomy. She presents to [facility] as a trauma transfer with concern for bilateral subdural hematoma following GLF on 09/02. Imaging performed: - CT H - L-spine XR, Sacral XR Traumatic Injuries: - b/l SDH - S5 fx Hospital Course: - 09/07/2025 trauma consult, SICU - 09/08 b/l Yenni holes Care Plan: SDH - NSGY consulted - recs appreciated - s/p yenni hole drainage 09/08 - s/ (more content not included)... [facility] 09-10-2025 Note HNO ID: [id number] Author: RICA TAVERAS PA-C Service: Neuroendovascular Intervention Author Type: Physician Sailing Master Type: Progress Notes Filed: 09/10/2025 09:13 Note Text: NEUROENDOVASCULAR INTERVENTION Progress Note SERVICE DATE: 09/10/2025 SERVICE TIME: 0830 CHIEF COMPLAINT: Subdural hematoma HPI: Sharon Love is a 84 year old female with PMHx significant for CAD (s/p stenting), HLD, HTN, and bilateral powrj-db-usmeatp subdural hematoma s/p yenni hole evacuation who presented today for MMA embolization. Patient is now post-procedure day #1 after successful bilateral middle meningeal artery embolization with PVA particles. INTERVAL HISTORY: Patient had headache and nausea overnight. CTH this morning with some acute blood in left surgical bed. Neurosurgery aware and following, plan for repeat CTH in the morning. FUNCTIONAL STATUS: Independent Current Facility-Administered Medications Medication Dose Route Frequency Provider Last Rate Last Admin acetaminophen 650 mg tab(s) (TYLENOL) 650 mg ORAL q 4 H PRN Lin Carnes PA-C 650 mg at 09/10/25 0552 oxyCODONE IR 2.5 mg tab(s) (ROXICODONE) 2.5 mg ORAL q 6 H PRN Lin Carnes PA-C amLODIPine 2.5 mg tab(s) (NORVASC) 2.5 mg ORAL DAILY Lin Carnes PA-C labetalol 5 mg injection syringe (NORMODYNE) 5 mg INTRAVENOUS q 2 H PRN Lin Carnes PA-C hydrALAZINE 10 mg injection (APRESOLINE) 10 mg INTRAVENOUS q 6 H PRN Lin Carnes PA-C melatonin 9 mg tab(s) 9 mg ORAL DAILY (8 PM) Lin Carnes PA-C polyethylene glycol 3350 17 g packet 17 g ORAL DAILY Lin Carnes PA-C prochlorperazine 5 mg tab(s) (COMPAZINE) 5 mg ORAL q 6 H PRN Lin Carnes PA-C metoprolol succinate ER 25 mg tab(s) (TOPROL XL) 25 mg ORAL DAILY Lin Carnes PA-C 25 mg at 09/10/25 0828 NaCl 0.9% iv flush bag 20 mL INTRAVENOUS PRN Lin Carnes PA-C NaCl 0.9% iv infusion 75 mL/hr INTRAVENOUS CONTINUOUS Lin Carnes PA-C Paused at 09/09/25 1930 potassium chloride 20-40 mEq oral powder (KLOR-CON) 20-40 mEq ORAL/FEEDING TUBE PRN Lin Carnes PA-C 20 mEq at 09/07/25 2344 Or potassium chloride iv piggyback 20 mEq/100 mL 20 mEq INTRAVENOUS PRN Lin Carnes PA-C sodium phosphate 30 mmol in D5W 250 mL 30 mmol INTRAVENOUS PRN(NO DISPENSE) Lin Carnes PA-C Or sodium phosphate 45 mmol in D5W 250 mL 45 mmol INTRAVENOUS PRN(NO DISPENSE) Lin Carnes PA-C magnesium sulfate iv piggyback in sterile water 2 g 50 mL 2 g INTRAVENOUS PRN Lin Carnes PA-C calcium gluconate iv piggyback 2 g in NaCl (iso-osmotic) 100 mL 2 g INTRAVENOUS PRN(NO DISPENSE) Lin Carnes PA-C ondansetron 4 mg tab(s) (ZOFRAN) 4 mg ORAL q 6 H PRN Lin Carnes PA-C Or ondansetron (PF) 4 mg injection (ZOFRAN) 4 mg INTRAVENOUS q 6 H PRN Lin Carnes PA-C 4 mg at 09/09/25 1711 senna-docusate 8.6-50 mg 1 tablet (SENNA-S) 1 tablet ORAL BID Lin Carnes PA-C 1 tablet at 09/07/25 2316 NaCl 0.9% iv flush bag 20 mL INTRAVENOUS PRN Lin Carnes PA-C ALLERGIES Allergen Reactions Metoprolol Unknown Penicillamine Hmqedri-Hrh-Nax Red* Unknown PHYSICAL EXAM: BP 121/75 Pulse 58 Temp (Src) 97 (Temporal) Resp 16 Ht 4' 10" (1.47m) Wt 109 lb (49.4kg) SpO2 100% BMI 22.79 kg/(m2). O2 Therapy: Room Air GENERAL: Patient seen resting in chair. No acute distress. ACCESS SITE: right femoral. No ecchymosis. No hematoma. Minimal tenderness. NEUROLOGICAL: AANDOx3. Speech clear. PERRL. EOM intact. VFF. FS, TM BUE 5/5 BLE 5/5 No drift SILT No ataxia DATA: Diagnostic tests reviewed for today's visit: Most recent labs and imaging results. Hemoglobin (g/dL) Date Value 09/10/2025 10.1 Hematocrit (%) Date Value 09/10/2025 30.7 WBC (k/uL) Date Value 09/10/2025 8.47 Platelet Count Date Value Ref Range Status 09/10/2025 229 150 - 400 k/uL Final Glucose (mg/dL) Date Value 09/10/2025 95 Potassium (mmol/L) Date Value 09/10/2025 4.2 Sodium (mmol/L) Date Value 09/10/2025 137 Chloride (mmol/L) Date Value 09/10/2025 103 CO2 (mmol/L) Date Value 09/10/2025 25 Creatinine (mg/dL) Date Value 09/10/2025 0.88 BUN (mg/dL) Date Value 09/10/2025 11 Anion Gap (mmol/L) Date Value 09/10/2025 9 Calcium, Total (mg/dL) Date Value 09/10/2025 8.4 PATIENT CHECKLIST ICU Checklist --------- A= Assess, Prevent, Manage Pain C= Choice of Sedation and Analgesia B= Both Spontaneous Awakening and Breathing Trials D= Delirium: Assess, Prevent and Manage E= Early Mobility/Excercise ICU Mobility: F= Family Engagement and Empowerment ICU Disposition: Prevention: VTE Prophylaxis: Lines, Drains, and Airways Line Duration Peripheral 09/07/25 Left Antecubital 20 Gauge 3 days Peripheral 09/07/25 Right Forearm (more content not included)... [facility] 09-10-2025 Note HNO ID: [id number] Author: RAMY BLANCHARD MD Service: General Surgery Author Type: Resident Type: Progress Notes Filed: 09/10/2025 11:51 Note Text: Attestation signed by Ramy Blanchard MD at 09/10/2025 11:51 AM Plan of care: -rpeat CT head with interval bleed, continue q4hr neuro checks -hold DVT prophylaxis given bleeding risk -neurosurgery following -ok for diet I provided 30 minutes of critical care services which were necessary due to above specified injuries and illnesses. This patient has a high probability of sudden, clinical significant deterioration, which required the highest level of care and preparedness to intervene urgently. I managed and supervised life or organ supporting interventions that require frequent assessments. This time does not include time devoted to teaching and to any procedure I billed separately. I have personally seen and examined this patient and participated in the negron components of this encounter with the multi-disciplinary ICU team. I discussed the management of this case with the resident and reviewed/confirmed their documentation, attached or in separate note. I personally reviewed today's actual images, the associated image reports, and current labs. I supervised the ordering of additional testing, imaging, labs, and/or consultations. The patient and/or family were fully informed of the findings and plan of care. They had the opportunity to ask questions and raise any issues of concern, all of which were answered and dealt with by me to their stated satisfaction. The critical care treatment was mainly directed to address the following current issues: Active Hospital Problems Diagnosis Date Noted Subdural hematoma (HCC) 09/07/2025 Fall 09/08/2025 Sacral fracture, closed (HCC) 09/08/2025 Hypertension 09/06/2025 Hyperlipidemia 08/26/2025 Overview Note: Comment on above: intolerant of statins Management included sedation, pain control and ventilation assessment including need for ventilator, weaning and/or extubation as indicated. Management of critical care illnesses are edited above by me, including system by system plan and are not only limited to infectious disease and tailoring the antibiotic therapy, nutrition assessment and supplementation, electrolyte correction and prevention of ICU related complications using ventilator bundle, sedation holiday and assessment and removal of lines and tubes where indicated. SIGNATURE: Ramy Blanchard MD PATIENT NAME: Sharon Love DATE: September 10, 2025 TIME: 11:51 AM INPATIENT SICU PROGRESS NOTE SERVICE DATE: 09/10/2025 SERVICE TIME: 7:22 AM Subjective No acute events overnight, VSS, AF, 97% on RA, BM x 2, 1.5 L UOP last 24 hours Current Facility-Administered Medications Medication Dose Route Frequency metoprolol succinate ER 25 mg tab(s) (TOPROL XL) 25 mg ORAL DAILY NaCl 0.9% iv flush bag 20 mL INTRAVENOUS PRN NaCl 0.9% iv infusion 75 mL/hr INTRAVENOUS CONTINUOUS potassium chloride 20-40 mEq oral powder (KLOR-CON) 20-40 mEq ORAL/FEEDING TUBE PRN Or potassium chloride iv piggyback 20 mEq/100 mL 20 mEq INTRAVENOUS PRN sodium phosphate 30 mmol in D5W 250 mL 30 mmol INTRAVENOUS PRN(NO DISPENSE) Or sodium phosphate 45 mmol in D5W 250 mL 45 mmol INTRAVENOUS PRN(NO DISPENSE) magnesium sulfate iv piggyback in sterile water 2 g 50 mL 2 g INTRAVENOUS PRN calcium gluconate iv piggyback 2 g in NaCl (iso-osmotic) 100 mL 2 g INTRAVENOUS PRN(NO DISPENSE) ondansetron 4 mg tab(s) (ZOFRAN) 4 mg ORAL q 6 H PRN Or ondansetron (PF) 4 mg injection (ZOFRAN) 4 mg INTRAVENOUS q 6 H PRN senna-docusate 8.6-50 mg 1 tablet (SENNA-S) 1 tablet ORAL BID NaCl 0.9% iv flush bag 20 mL INTRAVENOUS PRN polyethylene glycol 3350 17 g packet 17 g ORAL DAILY prochlorperazine 5 mg tab(s) (COMPAZINE) 5 mg ORAL q 6 H PRN acetaminophen 650 mg tab(s) (TYLENOL) 650 mg ORAL q 4 H PRN oxyCODONE IR 2.5 mg tab(s) (ROXICODONE) 2.5 mg ORAL q 6 H PRN amLODIPine 2.5 mg tab(s) (NORVASC) 2.5 mg ORAL DAILY labetalol 5 mg injection syringe (NORMODYNE) 5 mg INTRAVENOUS q 2 H PRN hydrALAZINE 10 mg injection (APRESOLINE) 10 mg INTRAVENOUS q 6 H PRN melatonin 9 mg tab(s) 9 mg ORAL DAILY (8 PM) Objective VITAL SIGNS BP 121/64 Pulse 58 Temp (Src) 97.3 (Temporal) Resp 13 Ht 4' 10" (1.47m) Wt 109 lb (49.4kg) SpO2 99% BMI 22.79 kg/(m2). O2 Therapy: Room Air Temp (24hrs), Av.3 ?C (97.3 ?F), Min:36 ?C (96.8 ?F), Max:36.5 ?C (97.7 ?F) Date 09/09/25699 - 09/10/25 0659 09/10/25 07 - 09/11/25 0659 Shift 6703-4605 9084-2060 2182-2702 24 Hour Total 8122-9591 7014-3249 8271-3427 24 Hour Total INTAKE PO 560 240 800 PO 560 240 800 IV 3200 150 3350 OR Crystalloid intake (mL) 900 900 Volume (mL) (NaCl 0.9% i (more content not included)... [facility] 09-09-2025 Note HNO ID: [id number] Author: MARCUS FELICIANO RN Service: Nursing Author Type: Registered Nurse Type: Nursing Progress Note Filed: 09/09/2025 18:54 Note Text: Dinner tray to patient [facility] 09-09-2025 Note HNO ID: [id number] Author: MARCUS FELICIANO RN Service: Nursing Author Type: Registered Nurse Type: Nursing Progress Note Filed: 09/09/2025 18:43 Note Text: Kitchen called again for dinner tray [facility] 09-09-2025 Note HNO ID: [id number] Author: MARCUS FELICIANO RN Service: Nursing Author Type: Registered Nurse Type: Nursing Progress Note Filed: 09/09/2025 18:12 Note Text: Kitchen called again for tray-spoke to "Nikolay" who will bring dinner tray [facility] 09-09-2025 Note HNO ID: [id number] Author: MARCUS FELICIANO RN Service: Nursing Author Type: Registered Nurse Type: Nursing Progress Note Filed: 09/09/2025 17:29 Note Text: Kitchen called again for dinner tray [facility] 09-09-2025 Note HNO ID: [id number] Author: MARCUS EFLICIANO, MAXINE Service: Nursing Author Type: Registered Nurse Type: Nursing Progress Note Filed: 09/09/2025 16:39 Note Text: Message left with [facility] for [facility] 09-09-2025 Note HNO ID: [id number] Author: DARCI PURCELL, MAXINE Service: Nursing Author Type: Registered Nurse Type: Nursing Progress Note Filed: 09/09/2025 15:56 Note Text: Rica PHYSICIAN RELATIONS REPRESENTATIVE at bedside [facility] 09-09-2025 Note HNO ID: [id number] Author: RICA TAVERAS PA-C Service: Neuroendovascular Intervention Author Type: Physician Sailing Master Type: Plan of Care Filed: 09/09/2025 14:44 Note Text: Neuroendovascular Immediate Post-Op Note Date of Service: 09/09/25 Time: 1430 Patient Name: Sharon Love HPI: This is a 84 year old female with PMHx of PMH significant for CAD (s/p stenting), HLD, HTN, and bilateral ppqbc-rh-huyazlf subdural hematoma s/p yenni hole evacuation who presented today for MMA embolization. Patient is now post-procedure after successful bilateral middle meningeal artery embolization with PVA particles. NEURO: Drowsy but alerts easily to voice. Somewhat agitated upon waking, trying to exit bed Oriented x1-2 (to self and intermittently to place, at one point stated she was in scientologist). PERRL. EOM intact. Visual hutton full. FS, TM BUE 5/5 BLE 5/5 SILT Access Site: [employer] Closure Device: Vascade Pulses: Intact Assessment/Plan: - HOB flat for 3 hours (until 1715) - Access site care per orders - Rest of management per primary team Signature: Rica Taveras PA-C Neuroendovascular Intervention 09/09/2025 [facility] 09-09-2025 Note HNO ID: [id number] Author: NICK TAO MD Service: General Surgery Author Type: Physician Type: Progress Notes Filed: 09/09/2025 22:18 Note Text: Trauma Surgery Progress Note SERVICE DATE: 09/09/2025 Trauma Service Pager: For questions or concerns Mon-Fri 6a-5p please page [phone]. After 5pm and on Weekends and Holidays, please page [phone] if in ICU or [phone] if on RNF. SUBJECTIVE: S/p Yenni hole on 09/08. Denies any headaches or blurry vision, denies numbness or weakness. Denies nausea or vomiting OBJECTIVE: Vitals: Temp (24hrs), Av.1 ?C (97 ?F), Min:36 ?C (96.8 ?F), Max:36.3 ?C (97.3 ?F) BP 151/72 Pulse 70 Temp 36 ?C (96.8 ?F) (Temporal) Resp 16 Ht 147.3 cm (4' 10") Wt 49.4 kg (109 lb) SpO2 98% BMI 22.78 kg/m? O2 Therapy: Room Air IANDO: Date 09/08/25699 - 09/09/2565809/09/25 07 - 09/10/25 0659 Shift 5597-1523 2986-9407 3784-5012 24 Hour Total 3538-6416 8113-1064 9982-8265 24 Hour Total INTAKE PO 120 30 150 PO 120 30 150 IV 850 1000 1850 Volume (mL) (ceFAZolin iv piggyback 2 g in D5W (iso-osmotic) 100 mL (ANCEF)) 100 100 200 Volume (mL) (NaCl 0.9% iv infusion) 792 533 1397 Volume (mL) (lactated ringers iv infusion) 300 300 Volume (mL) (NaCl 0.9% iv infusion) 300 300 Shift Total 970 1030 2000 OUTPUT Urine 250 150 400 Output ([REMOVED] External Collection Device 09/07/25 09/08/25 1820) 0 0 Output ([REMOVED] External Collection Device 09/08/25 1820 [facility] 09/09/25 1013) 250 150 400 Shift Total 250 150 400 Weight (kg) 49.4 49.4 49.4 49.4 49.4 49.4 49.4 49.4 MEDICATIONS: Current Facility-Administered Medications Medication Dose Route Frequency [Transfer Hold] acetaminophen 650 mg tab(s) (TYLENOL) 650 mg ORAL q 4 H PRN [Transfer Hold] oxyCODONE IR 2.5 mg tab(s) (ROXICODONE) 2.5 mg ORAL q 6 H PRN [Transfer Hold] amLODIPine 2.5 mg tab(s) (NORVASC) 2.5 mg ORAL DAILY [Transfer Hold] labetalol 5 mg injection syringe (NORMODYNE) 5 mg INTRAVENOUS q 2 H PRN [Transfer Hold] hydrALAZINE 10 mg injection (APRESOLINE) 10 mg INTRAVENOUS q 6 H PRN [Transfer Hold] ceFAZolin iv piggyback 2 g in D5W (iso-osmotic) 100 mL (ANCEF) 2 g INTRAVENOUS q 8 HR [Transfer Hold] polyethylene glycol 3350 17 g packet 17 g ORAL DAILY [Transfer Hold] prochlorperazine 5 mg tab(s) (COMPAZINE) 5 mg ORAL q 6 H PRN [Transfer Hold] metoprolol succinate ER 25 mg tab(s) (TOPROL XL) 25 mg ORAL DAILY [Transfer Hold] NaCl 0.9% iv flush bag 20 mL INTRAVENOUS PRN [Transfer Hold] NaCl 0.9% iv infusion 75 mL/hr INTRAVENOUS CONTINUOUS [Transfer Hold] potassium chloride 20-40 mEq oral powder (KLOR-CON) 20-40 mEq ORAL/FEEDING TUBE PRN Or [Transfer Hold] potassium chloride iv piggyback 20 mEq/100 mL 20 mEq INTRAVENOUS PRN [Transfer Hold] sodium phosphate 30 mmol in D5W 250 mL 30 mmol INTRAVENOUS PRN(NO DISPENSE) Or [Transfer Hold] sodium phosphate 45 mmol in D5W 250 mL 45 mmol INTRAVENOUS PRN(NO DISPENSE) [Transfer Hold] magnesium sulfate iv piggyback in sterile water 2 g 50 mL 2 g INTRAVENOUS PRN [Transfer Hold] calcium gluconate iv piggyback 2 g in NaCl (iso-osmotic) 100 mL 2 g INTRAVENOUS PRN(NO DISPENSE) [Transfer Hold] ondansetron 4 mg tab(s) (ZOFRAN) 4 mg ORAL q 6 H PRN Or [Transfer Hold] ondansetron (PF) 4 mg injection (ZOFRAN) 4 mg INTRAVENOUS q 6 H PRN [Transfer Hold] senna-docusate 8.6-50 mg 1 tablet (SENNA-S) 1 tablet ORAL BID [Transfer Hold] NaCl 0.9% iv flush bag 20 mL INTRAVENOUS PRN Labs: Recent Labs 09/09/25 0236 09/08/25 0413 09/07/25 2233 NA 137 138 138 K 4.3 4.2 3.8 CHLOR 101 104 103 CO2 20* 23 24 BUN 16 19 21 CREAT 0.86 0.86 0.81 GLUC 122* 96 89 ANION 16* 11 11 CA 8.7 8.8 9.2 MG 2.2 2.3 -- P 4.9* 4.1 -- ALB -- -- 4.4 AST -- -- 29 ALT -- -- 17 ALKPHOS -- -- 77 TBILI -- -- 0.4 WBC 12.34* 7.04 7.99 HB 12.0 11.8 12.5 HCT 35.8* 35.4* 37.6 PLT 272 263 258 INR -- 1.0 1.0 PHYSICAL EXAM: GENERAL: Alert. No distress. Resting comfortably. NEURO: AANDOx3. No focal neurologic deficits. Sensation grossly intact. HEENT: Normocephalic. EOMI. Incision site C/D/I LUNGS: Unlabored breathing. Equal excursion bilaterally. CARDIAC: Regular rate. Good perfusion throughout. ABDOMEN: Soft, non-tender, non-distended. No rebound or guarding. EXTREMITIES: GREY. No deformities. Mild pain over sacrum SKIN: No obvious jaundice or pallor. ASSESSMENT AND PLAN: Assessment Active Hospital Problems Diagnosis Date Noted Subdural hematoma (HCC) 09/07/2025 Fall 09/08/2025 Sacral fracture, closed (HCC) 09/08/2025 84 year old female PMH HTN, HLD, remote roscoe and hysterectomy. She presents to [facility] as a trauma transfer with concern for bilateral subdural hematoma following GLF on 09/02. Imaging performed: - CT H - L-spine XR, Sacral XR Traumatic Injuries: - b/l SDH - S5 fx Hospital Course: - 09/07/2025 trauma consult, SICU - 09/08 b/l [place] holes Care Plan: SDH (more content not included)... [facility] 09-09-2025 Note HNO ID: [id number] Author: LILY MONAHAN APRN.LAST REPAIRER HELPER Service: Anesthesiology Author Type: Nurse Certified Scrum Master Type: Anesthesia Procedure Notes Filed: 09/09/2025 12:40 Note Text: ANESTHESIOLOGY PROCEDURE NOTE Airway General Information Procedure Start Time/Medication Administration: 09/09/2025 12:35 PM Procedure End Time: 09/09/2025 12:35 PM Patient location during procedure: OR Timeout Performed Pre-procedure: timeout performed Consent Obtained: Yes Patient identity confirmed: arm band Staffing Anesthesiologist: Aleyda Lim MD LAST REPAIRER HELPER: Yannick Montano APRN.LAST REPAIRER HELPER Performed by: anesthesiologist and LAST REPAIRER HELPER Indications and Patient Condition Indications for airway management: anesthesia Preoxygenated: yes anesthesia circuit Method: asleep Difficult Mask: No Final Airway Details Final airway type: endotracheal airwayFinal Endotracheal Airway: ETT Successful intubation technique: video laryngoscopy Devices used: intubating stylet and Watson Endotracheal tube insertion site: oral Blade: Marlee Blade size: #3 ETT size (mm): 7.0 Measured from: lips Measurement (cm): 21 Placement verified by: chest auscultation and capnometry Cormack-Lehane Classification: grade I - full view of glottis Number of attempts at approach: 1 Failed airway: no Unrecognized esophageal intubation: no Airway not difficult SIGNATURE: Lily Monahan APRN.LAST REPAIRER HELPER PATIENT NAME: Sahron Love DATE: September 09, 2025 TIME: 12:39 PM CSN: [id number] [facility] 09-09-2025 Note HNO ID: [id number] Author: MARCUS FELICIANO RN Service: Nursing Author Type: Registered Nurse Type: Nursing Progress Note Filed: 09/09/2025 12:12 Note Text: Pt to NIL [facility] 09-09-2025 Note HNO ID: [id number] Author: MARCUS FELICIANO RN Service: Nursing Author Type: Registered Nurse Type: Nursing Progress Note Filed: 09/09/2025 12:09 Note Text: Dr. Burton in with patient to discuss procedure [facility] 09-09-2025 Note HNO ID: [id number] Author: MARCUS FELICIANO RN Service: Nursing Author Type: Registered Nurse Type: Nursing Progress Note Filed: 09/09/2025 10:44 Note Text: Family at BS x 2. [facility] 09-08-2025 Note HNO ID: [id number] Author: MARCUS FELICIANO, RN Service: Nursing Author Type: Registered Nurse Type: Nursing Progress Note Filed: 09/08/2025 18:47 Note Text: Trauma surgery called #[id number] for pt c/o nausea. No emesis noted. Will place order. [facility] 09-08-2025 Note HNO ID: [id number] Author: MARCUS FELICIANO, RN Service: Nursing Author Type: Registered Nurse Type: Nursing Progress Note Filed: 09/08/2025 18:23 Note Text: Pt moved to hospital bed for comfort [facility] 09-08-2025 Note HNO ID: [id number] Author: RIZWAN MONTAÑO APRN.CNP Service: Neurosurgery Author Type: Nurse Practitioner Type: Plan of Care Filed: 09/08/2025 18:08 Note Text: Neurosurgery plan of care note Sharon Love AK-OR/AK-OR Postoperative Check Spine Surgery Subjective: 84 y/o female with hx of HTN, HLD and remote roscoe and hysterectomy who presents after fall on treadmill. CT imaging demonstrating bilateral subdural hematoma. Patient denies headache, dizziness, nausea, pain or visual changes. Objective: Vitals: BP 121/71 Pulse 62 Temp 36.1 ?C (97 ?F) (Temporal) Resp 16 Ht 147.3 cm (4' 10") Wt 49.4 kg (109 lb) SpO2 100% BMI 22.78 kg/m? General: no distress, laying comfortably in bed, alert and oriented Focused MSK exam: Motor: UE BICEPS TRICEPS DELTS Wrist Ext Wrist Flex Inbound Sales Manager HI R 5/5 5/5 5/5 5/5 5/5 5/5 5/5 L 5/5 5/5 5/5 5/5 5/5 5/5 5/5 LE Hip Flex Knee Flex Knee Extend Plantarflex Dorsiflex EHL R 5/5 5/5 5/5 5/5 5/5 5/5 L 5/5 5/5 5/5 5/5 5/5 5/5 Assessment: 84 year old female with hx of HTN, HLD and remote roscoe and hysterectomy who presents after fall on treadmill. CT imaging demonstrating bilateral subdural hematoma. POD 0 S/P bilateral yenni holes for evacuation Pain well-controlled, exam appropriate Plan: -neuro as above-intact -neuro checks Q1hr -prn oxy and morphine for pain -PT/OT eval and TX -care management following -SBP <160 -please mobilize -DVT PPx: hold chemo ppx -discussed with Dr. Ramya Montaño APRN.[facility] Pager: [phone] Neurosurgery Pager: [phone] 09/08/2025 5:56 PM [facility] 09-08-2025 Note HNO ID: [id number] Author: MARCUS FELICIANO RN Service: Nursing Author Type: Registered Nurse Type: Nursing Progress Note Filed: 09/08/2025 17:48 Note Text: BAKARI in with patient [facility] 09-08-2025 Note HNO ID: [id number] Author: MARCUS FELICIANO RN Service: Nursing Author Type: Registered Nurse Type: Nursing Progress Note Filed: 09/08/2025 17:46 Note Text: Back to PACU with this RN [facility] 09-08-2025 Note HNO ID: [id number] Author: MARCUS FELICIANO RN Service: Nursing Author Type: Registered Nurse Type: Nursing Progress Note Filed: 09/08/2025 17:31 Note Text: To CT with this RN [facility] 09-08-2025 Note HNO ID: [id number] Author: MARCUS FELICIANO RN Service: Nursing Author Type: Registered Nurse Type: Nursing Progress Note Filed: 09/08/2025 16:51 Note Text: Dr. Bui at bedside. [facility] 09-08-2025 Note HNO ID: [id number] Author: MARCUS FELICIANO RN Service: Nursing Author Type: Registered Nurse Type: Nursing Progress Note Filed: 09/08/2025 16:29 Note Text: Dr. Carbone at bedside [facility] 09-08-2025 Note HNO ID: [id number] Author: JAKE NICHOLS APRN.LAST REPAIRER HELPER Service: Anesthesiology Author Type: Nurse Certified Scrum Master Type: Anesthesia Procedure Notes Filed: 09/08/2025 15:01 Note Text: ANESTHESIOLOGY PROCEDURE NOTE Airway General Information Procedure Start Time/Medication Administration: 09/08/2025 2:41 PM Procedure End Time: 09/08/2025 2:45 PM Patient location during procedure: OR Timeout Performed Pre-procedure: timeout performed Patient identity confirmed: arm band and patient Staffing Anesthesiologist: Carter Carbone MD LAST REPAIRER HELPER: Jake Nichols APRN.LAST REPAIRER HELPER Performed by: anesthesiologist Indications and Patient Condition Indications for airway management: anesthesia Preoxygenated: yesMethod: asleep Difficult Mask: No Final Airway Details Final airway type: endotracheal airwayFinal Endotracheal Airway: ETT Cuffed: yes Successful intubation technique: video laryngoscopy Devices used: Glidescope Endotracheal tube insertion site: oral Blade: Marlee Blade size: #3 ETT size (mm): 7.0 Measured from: lips Measurement (cm): 21 Placement verified by: chest auscultation Cormack-Lehane Classification: grade I - full view of glottis Number of attempts at approach: 1 Airway not difficult SIGNATURE: Jake Nichols APRN.LAST REPAIRER HELPER PATIENT NAME: Sharon Love DATE: September 08, 2025 TIME: 2:59 PM CSN: [id number] [facility] 09-08-2025 Note HNO ID: [id number] Author: NICK TAO MD Service: General Surgery Author Type: Physician Type: Progress Notes Filed: 09/08/2025 15:06 Note Text: Trauma Surgery Progress Note SERVICE DATE: 09/08/2025 Trauma Service Pager: For questions or concerns Mon-Mon 6a-5p please page [phone]. After 5pm and on Weekends and Holidays, please page [phone] if in ICU or [phone] if on RNF. SUBJECTIVE: NAEON. Denies any headaches or blurry vision, denies numbness or weakness OBJECTIVE: Vitals: Temp (24hrs), Av.7 ?C (98 ?F), Min:36.4 ?C (97.5 ?F), Max:37 ?C (98.6 ?F) BP 133/77 Pulse 67 Temp 36.6 ?C (97.8 ?F) (Oral) Resp 13 Ht 147.3 cm (4' 10") Wt 49.4 kg (109 lb) SpO2 95% BMI 22.78 kg/m? O2 Therapy: Room Air IANDO: Date 09/07/25699 - 09/08/2565809/08/25699 - 09/09/25 0659 Shift 5917-2517 8807-6694 2924-7277 24 Hour Total 2769-0719 9465-3945 8992-1272 24 Hour Total INTAKE Shift Total OUTPUT Urine 400 400 Void (ml) 400 400 # of BMs Number of BMs 1 x 1 x Shift Total 400 400 Weight (kg) 49.4 49.4 49.4 49.4 49.4 49.4 49.4 MEDICATIONS: Current Facility-Administered Medications Medication Dose Route Frequency metoprolol succinate ER 25 mg tab(s) (TOPROL XL) 25 mg ORAL DAILY NaCl 0.9% iv flush bag 20 mL INTRAVENOUS PRN NaCl 0.9% iv infusion 75 mL/hr INTRAVENOUS CONTINUOUS potassium chloride 20-40 mEq oral powder (KLOR-CON) 20-40 mEq ORAL/FEEDING TUBE PRN Or potassium chloride iv piggyback 20 mEq/100 mL 20 mEq INTRAVENOUS PRN sodium phosphate 30 mmol in D5W 250 mL 30 mmol INTRAVENOUS PRN(NO DISPENSE) Or sodium phosphate 45 mmol in D5W 250 mL 45 mmol INTRAVENOUS PRN(NO DISPENSE) magnesium sulfate iv piggyback in sterile water 2 g 50 mL 2 g INTRAVENOUS PRN calcium gluconate iv piggyback 2 g in NaCl (iso-osmotic) 100 mL 2 g INTRAVENOUS PRN(NO DISPENSE) ondansetron 4 mg tab(s) (ZOFRAN) 4 mg ORAL q 6 H PRN Or ondansetron (PF) 4 mg injection (ZOFRAN) 4 mg INTRAVENOUS q 6 H PRN oxyCODONE IR 2.5-5 mg tab(s) (ROXICODONE) 2.5-5 mg ORAL q 4 H PRN fentaNYL 50 mcg/mL 25 mcg injection (SUBLIMAZE) 25 mcg INTRAVENOUS q 2 H PRN senna-docusate 8.6-50 mg 1 tablet (SENNA-S) 1 tablet ORAL BID NaCl 0.9% iv flush bag 20 mL INTRAVENOUS PRN Labs: Recent Labs 09/08/25 0413 09/07/253 NA 138 138 K 4.2 3.8 CHLOR 104 103 CO2 23 24 BUN 19 21 CREAT 0.86 0.81 GLUC 96 89 ANION 11 11 CA 8.8 9.2 MG 2.3 -- P 4.1 -- ALB -- 4.4 AST -- 29 ALT -- 17 ALKPHOS -- 77 TBILI -- 0.4 WBC 7.04 7.99 HB 11.8 12.5 HCT 35.4* 37.6 PLT 263 258 INR 1.0 1.0 PHYSICAL EXAM: GENERAL: Alert. No distress. Resting comfortably. NEURO: AANDOx3. No focal neurologic deficits. Sensation grossly intact. HEENT: Normocephalic. Atraumatic. EOMI. LUNGS: Unlabored breathing. Equal excursion bilaterally. CARDIAC: Regular rate. Good perfusion throughout. ABDOMEN: Soft, non-tender, non-distended. No rebound or guarding. EXTREMITIES: GREY. No deformities. Mild pain over sacrum SKIN: No obvious jaundice or pallor. ASSESSMENT AND PLAN: Assessment Active Hospital Problems Diagnosis Date Noted Subdural hematoma (HCC) 09/07/2025 Fall 09/08/2025 Sacral fracture, closed (HCC) 09/08/2025 84 year old female PMH HTN, HLD, remote roscoe and hysterectomy. She presents to [facility] as a trauma transfer with concern for bilateral subdural hematoma following GLF on 09/02. Imaging performed: - CT H - L-spine XR, Sacral XR Traumatic Injuries: - b/l SDH - S5 fx Hospital Course: - 09/07/2025 trauma consult, SICU Care Plan: SDH - NSGY consulted - recs pending - Q4 hr NC - Keep NPO at midnight - NIL consulted: Plan for diagnostic angiogram with intent for bilateral MMA embolization tomorrow. NPO after midnight for procedure - Hold Asa - Discussed reversal but NSGY planning to hold off - Seizure ppx per NSGY - Hold lvx - rHCT:Stable bilateral frontoparietal convexity mixed density subdural hematomas with associated parenchymal mass effect. No acute calvarial fracture. - PT/OT/MASS COMMUNICATIONS INSTRUCTOR S5 fx - Read available but imaging not - discussed getting imaging imported vs repeat Xrays. However, patient ok to follow-up with spine as an outpatient as already arranged by Kelly. - Given unclear mechanism of injury, multiple reported falls recently, CT imaging obtained CTHNCAP. Chest, abd, pelvis unremarkable for acute injury - pain and nausea prn - pulmonary hygiene - progressive mobility - strict Is/Os - senna-s - continue daily labs PPX: - DVT: hold - Ulcer: n/a - Vit D level if > 65 yo: 44.4 Consulted Services: - T, SICU, NSGY, NIL Dispo Planning: - PT/OT recs pending. Case management following. Incidentals: - none Assessment and plan d/w Dr. Tao. SIGNATURE: Laverne Khan MD PATIENT NAME: Sharon Love DATE: 09/08/2025 TIME: 2:05 PM Pager: see below Trauma Service Pager: For questions or concerns Mon-Mon 6a-5p (more content not included)... [facility] 09-07-2025 Note HNO ID: [id number] Author: MARTHA PETERSON APRN.ROBYN Service: ? Author Type: Nurse Practitioner Type: Progress Notes Filed: 09/08/2025 00:37 Note Text: Critical Care Transport Note Patient Name: Sharon Love Service Date: September 07, 2025 Referring Facility: [facility] Accepting Facility: [facility] SUBJECTIVE/CHIEF COMPLAINT: headache REASON FOR TRANSPORT: Higher level of critical care services unavailable at sending facility History of Present Illness: The following history is what was known to CCT team at time of given care and summarized through review of available medical records, patient/family interview and from referring physician and nursing report. Sharon Love is a 84 year old female with a past medical history significant for vertigo, NC s/p PCI with stenting, HTN, HLD and falls. Admits to taking one baby aspirin daily, no thinners. She presented to [facility] for evaluation of headache and unsteady gait that began one week ago after sustaining a fall at home. Pt denies striking her head when she fell and states that she landed on her buttocks. She went to an OSH ED at that time and X-rays of her L spine and sacrum which were notable for S5 acute minimally depressed fracture of the anterior cortex of S5 vertebral body. She was discharged home. However, she continued to c/o headaches and was noted to have an unsteady gait which prompted her to present to [facility] this evening where a head CT showed bilateral subdural hematomas. She is being transferred to [facility] for further management. At this time, the physician managing the patient requested transfer to [facility] for tertiary and/or quaternary services unavailable at the referring facility. Patient condition at time of exam was: Acutely ill and critically ill. Due to the unique circumstances of the patient, it was determined that this was the closest, most appropriate facility by referring physician. The physician managing the patient requested the [facility] Critical Care Transport Team transport and treat the patient for the purpose of tertiary care, evaluation, and management of her acute condition(s). Air medical transport was requested to reduce the [id number] time, 15 minutes by air vs. approximately 45 minutes by ground, with the potential for increased ground transport time secondary to: distance between facilities and the patient's condition requiring an emergent procedure or evaluation not available at the referring facility ROS: A complete review of systems was performed and is negative except as noted PAST MEDICAL HISTORY: PAST MEDICAL HISTORY Diagnosis Date CAD (coronary artery disease) H/O heart artery stent HLD (hyperlipidemia) HTN (hypertension) NSTEMI (non-ST elevated myocardial infarction) (HCC) Vertigo PAST SURGICAL HISTORY: PAST SURGICAL HISTORY Procedure Laterality Date ANESTH, HYSTERECTOMY CATARACT EXTRACTION HX Bilateral 2002, 2010 CHOLECYSTECTOMY PAST SURGICAL HISTORY OF Right 2016 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 used prisms for a while. surgery w/ benefit ALLERGIES: Metoprolol, Penicillamine, and Vnspkll-Fyx-Nlp Reductase Inhibitors SOCIAL HISTORY: SOCIAL HISTORY[1] FAMILY HISTORY: FAMILY HISTORY Problem Relation Age of Onset Cancer Mother Coronary Artery Disease Father HOME MEDICATIONS: aspirin 81 mg chewable tabletTake 81 mg by mouth once daily.Disp: Rfl: losartan (COZAAR) 100 mg tabletTake 100 mg by mouth once daily.Disp: Rfl: MULTIVIT-MINERALS/FERROUS FUM (MULTI VITAMIN ORAL)Take by mouth.Disp: Rfl: vitamin e 1,000 unit capsuleTake 1,000 Units by mouth once daily.Disp: Rfl: EVENING PRIMROSE OIL ORALTake by mouth.Disp: Rfl: CYANOCOBALAMIN, VITAMIN B-12, (VITAMIN B12 ORAL)Take by mouth.Disp: Rfl: DOCOSAHEXANOIC ACID/EPA (FISH OIL ORAL)Take by mouth.Disp: Rfl: Biotin 1 mg tabTake 1 tablet by mouth.Disp: Rfl: CALCIUM CARBONATE/VITAMIN D3 (CALCIUM + D ORAL)Take by mouth.Disp: Rfl: Glucosamine Sulfate (GLUCOSAMINE) 500 mg tabTake 1 tablet by mouth.Disp: Rfl: NO.82/IRON/FOLATE NO2 (TL FOLATE ORAL)Take by mouth.Disp: Rfl: Medications Administered by Referring Facility: none OBJECTIVE: Recent Labs, Diagnostics AND Procedure Reports by OSH reviewed as available Referring Facility Labs CBC: WBC- 7.3 HGB- 12.7 HCT- 37.9 PLT- 272 Coags: INR- NA PTT- NA Chemistry: NA- 13.7 K+- 3.7 CL -100 CO2- 23 BUN- 25 Cr- 0.90 Glucose- 105 Other Pertinent Labs: none Diagnostics AND Procedure Reports ECG: normal EKG, normal sinus rhythm IMAGING: OT-Brain/Head without Contrast IMPORT Result Date: 09/07/2025 Images were obtained outside of [facility] CT-Brain/Head without Contrast IMPORT Result Date: 09/07/2025 Subacute with acute right sided SDH Significant bilateral S (more content not included)... [facility] 09-02-2025 Radiology Diagnostic study note [facility] Imaging Services [address] [place] [address] Sacrum-Coccyx min 2 Views MR#: [id number] Acct: [id number] Name: SHARON LOVE Rep #: [id number] : 1940 F 84 From: Cullen Gerard MD PCP: Dr. Joe Carey MD Status: REG ER Study:Sacrum-Coccyx min 2 Views Date of Exam: 09/02/25 Exam# [id number] Ordering Dr: Cesilia Bazzi DO PROCEDURE: SACRUM-COCCYX MIN 2 VIEWS 09/02/2025 REASON FOR EXAM: FALL TECHNIQUE: Procedure Code: RADSAC Modality: DX Procedure: SACRUM-COCCYX MIN 2 VIEWS FINDINGS: Interval appearance of acute minimally depressed fracture of the anterior cortexof S5 vertebral body. No subsequent canal stenosis. No secondary dislocation of the sacroiliac joints. 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 Moderate osteopenia. Mildly increased angulation at the level of the sacrococcygeal junction, chronicfinding. Normal bilateral sacral ala. Normal coccygeal segments. RAD/Sacrum-Coccyx min 2 Views IMPRESSION: Interval appearance of acute minimally depressed fracture of the anterior cortexof S5 vertebral body. No subsequent canal stenosis. No secondary dislocation of the sacroiliac joints. 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 Moderate osteopenia. Reading Location: [place] [address] CC: Dr. Joe Carey MD; Virgil Bazzi DO ~ Threat Monitoring Analyst: Signed [facility] 09-02-2025 Radiology Diagnostic study note [facility] Imaging Services [address], [place] [id number] Lumbar Spine 2 or 3 Views MR#: [id number] Acct: [id number] Name: SHARON LOVE Rep #: [id number] : 1940 F 84 From: Cullen Gerard MD PCP: Dr. Joe Carey MD Status: REG ER Study:Lumbar Spine 2 or 3 Views Date of Exam: 09/02/25 Exam# [id number] Ordering Dr: Cesilia Bazzi DO PROCEDURE: LUMBAR SPINE 2 OR 3 VIEWS 09/02/2025 REASON FOR EXAM: FALL TECHNIQUE: Procedure Code: RADSPLL Modality: DX Procedure: LUMBAR SPINE 2 OR 3 VIEWS COMPARISON: None. FINDINGS: Mild osteopenia. Mild degenerative levoscoliosis apex at L3. Metallic clips are noted in the right upper quadrant. Mild amount of fecal residue in the large bowels. There are diffuse spondylotic changes. Findings are demonstrated to by diffuse disc space narrowing, osteophyte formation and degenerative endplate sclerosis. There is diffuse facet joint arthropathy with secondary bilateral neural foramina narrowing. No fracture or dislocation is seen. No aggressive lytic or blastic bony lesion is noted. RAD/Lumbar Spine 2 or 3 Views IMPRESSION: No evidence for acute abnormality. Reading [facility] CC: Dr. Joe Carey MD; Virgil Bazzi DO ~ Threat Monitoring Analyst: Signed [facility] 08-26-2025 Progress note [facility] 08-01-2025 Discharge summary [facility] 08-01-2025 Radiology Diagnostic study note [facility] Imaging Services [address] [place] [address] Spine Cervical without Contras MR#: [id number] Acct: [id number] Name: SHARON LOVE Rep #: [id number] : 1940 F 84 From: Vinay Meadows MD PCP: Dr. Joe Carey MD Status: PRE ER Study:Spine Cervical without Contras Date of Exam: 08/01/25 Exam# [id number] Ordering Dr: Kesha Jamison DO PROCEDURE: SPINE CERVICAL WITHOUT CONTRAS 08/01/2025 REASON FOR EXAM: FALL Head injury due to a fall. TECHNIQUE: Procedure Code: CTSPC Modality: CT Procedure: SPINE CERVICAL WITHOUT CONTRAS Coronal and Sagittal reconstruction series were provided. One or more dose reduction techniques were used (e.g., Automated exposure control, adjustment of the mA and/or kV according to patient size, use of iterative reconstruction technique. RADIATION DOSE SUMMARY: CTDlvol: 12.63 mGy DLP: 292.5 mGycm COMPARISON: None FINDINGS: Alignment: No evidence of scoliosis. Vertebrae: No vertebral fracture. Multilevel spondylosis. Soft Tissues: No prevertebral soft tissue swelling. Other: C1-2: Mild degenerative changes at the atlantoaxial joint. C2-3: Minimal anterior listhesis of C2 on C3 most likely secondary to the facet joint osteoarthritis and hypertrophy worse on the left side. Moderate degree of left neural foraminal stenosis. C3-4: Marked degree of disc space narrowing and spondylosis. Uncovertebral arthrosis. Bilateral neural foraminal stenosis worse on the left side. C4-5: Marked degree of disc space narrowing. Spondylosis. Uncovertebral arthrosis and bilateral facet joint arthropathy. Mild degree of bilateral neural foraminal stenosis. C5-6: Marked degree of disc space narrowing. Spondylosis. Uncovertebral arthrosis. Mild bilateral neural foraminal stenosis. C6-7: Marked degree of disc space narrowing. Spondylosis. Uncovertebral arthrosis. Bilateral neural foraminal stenosis. C7-T1: Unremarkable CT/Spine Cervical without Contras IMPRESSION: DEGENERATIVE CHANGES OF THE CERVICAL SPINE. NO EVIDENCE OF SIGNIFICANT OSSEOUS CENTRAL CANAL OR NEURAL FORAMINAL STENOSIS. Reading Location: [facility] CC: Dr. Joe Carey MD; Dr. Grzegorz Jamison DO ~ Threat Monitoring Analyst: Signed [facility] 08-01-2025 Radiology Diagnostic study note [facility] Imaging Services [address] [place], [place] [address] Brain/Head without Contrast MR#: [id number] Acct: [id number] Name: SHARON LOVE Rep #: [id number] : 1940 F 84 From: Barbara Gallardo MD PCP: Dr. Joe Carey MD Status: PRE ER Study:Brain/Head without Contrast Date of Exa m: 08/01/25 Exam# [id number] Ordering Dr: Kesha Jamison DO PROCEDURE: BRAIN/HEAD WITHOUT CONTRAST 08/01/2025 REASON FOR EXAM: FALL TECHNIQUE: Procedure Code: CTBR Modality: CT Procedure: BRAIN/HEAD WITHOUT CONTRAST Coronal and Sagittal reconstruction series were provided. One or more dose reduction techniques were used (e.g., Automated exposure control, adjustment of the mA and/or kV according to patient size, use of iterative reconstruction technique. RADIATION DOSE SUMMARY: CTDlvol: Not provided mGy DLP: Not provided mGycm COMPARISON: May 28, 2025 FINDINGS: Brain: There is no evidence of hemorrhage, acute ischemia or mass. No extra-axial fluid collection, midline shift or mass effect. Small focus of hypodensity in the guillen radiata on the left anteriorly. CSF Spaces: Mild generalized cerebral atrophy Sinuses/Mastoids: Clear Bones: No fracture CT/Brain/Head without Contrast IMPRESSION: 1. No evidence of intracranial hemorrhage or acute ischemia. 2. Changes of chronic microvascular ischemia and volume loss. Reading Location: [facility] CC: Dr. Joe Carey MD; Dr. Grzegorz Jamison DO ~ Threat Monitoring Analyst: Signed [facility] 05-28-2025 Radiology Diagnostic study note [facility] Imaging Services [address] [place], [place] [address] Brain/Head without Contrast MR#: [id number] Acct: [id number] Name: SHARON LOVE Rep #: [id number] : 1940 F 84 From: Rhett Juárez MD PCP: Dr. Joe Carey MD Status: REG CL I Study:Brain/Head without Contrast Date of Exa m: 05/28/25 Exam# [id number] Ordering Dr: Yin Rosales NP PROCEDURE: BRAIN/HEAD [...] consistent changes, no acute findings Reading Location: [facility] CC: Yin Rosales; Dr. Joe Carey MD ~ Threat Monitoring Analyst: Signed [facility] 05-07-2025 Procedure note [facility] 03-27-2025 Evaluation note Diagnosis Onset Date Resolution Atherosclerotic heart disease of [place] coronary artery without angina pectoris acute March 27, 2025 9:11am HLD (hyperlipidemia) acute March 27, 2025 9:11am Tachycardia acute March 27, 2025 9:11am Essential hypertension chronic Ma y 2024 9:11am [facility] Work Phone: 1(402) 689-243104-02-2025 Radiology Diagnostic study note [facility] Imaging Services [address] [place] [address] Chest PA and Lateral MR#: [id number] Acct: [id number] Name: SHARON LOVE Rep #: [id number] : 1940 F 84 From: Saad Pimentel MD PCP: Dr. Joe Carey MD Status: REG CL I Study:Chest PA and Lateral Date of Exam: 02/25/25 Exam# [id number] Ordering Dr: Radhika Carey MD PROCEDURE: CHEST PA AND LATERAL 02/25/2025 [...] No evidence of acute disease. Reading Location: [id number] CC: Dr. Joe Carey MD ~ Threat Monitoring Analyst: Signed [facility]2025 Evaluation note* Diagnosis Onset Date Resolution Status Admit Date Atherosclerotic heart diseas e of [place] coronary artery without angina pectoris acute December 18 1:46pm HLD (hyperlipidemia) acute 2024 1:46pm Essential hypertension chronic [facility] 2024 1:46pm [facility] Work Phone: 1(994) 549-119401-22-2025 Evaluation note* Diagnosis Onset Date Resolution Status Admit Date Atherosclerotic heart diseas e of [place] coronary artery without angina pectoris acute December 18 1:46pm HLD (hyperlipidemia) acute 2024 1:46pm Essential hypertension chronic [facility] 2024 1:46pm Atherosclerotic heart diseas e of [place] coronary artery without angina pectoris acute March 27, 2025 9: 11am HLD (hyperlipidemia) acute March 27, 2025 9:11am Tachycardia acute March 27, 2025 9:11am Essential hypertension chronic Ma y 2024 9:11am [facility] Work Phone: 1([phone]) 755-140701-13-2023 Evaluation note* Diagnosis Onset Date Resolution Status Admit Date History of coronary artery stent placement December 09, 2022 acute Septem aimee 2024 10:40am HLD (hyperlipidemia) acute Sept ember 2024 10:40am Essential hypertension chronic Se ptember 2024 10:40am [facility] Work Phone: Discharge summary Author Virgil Bazzi [facility] March 21, 2023 5:38am Note Date/Time March 21, 2023 4:5 9am [facility] Medical Records Department [address] [place] [address] Emergency Department Summary 03/21/23 MR#: [id number] Acct: [id number] Name: SHARON LOVE Rep #:[id number] : [...] states because of her history of previous "heart attack" she is concerned she may get having heart damage once again and therefore comes in for evaluation. [facility] Medical History Abnormal bruising Dehydration Essential hypertension [...] Type Severity Reaction Status Date / Time Bzrrtsc-LRR-FqU Reductase Allergy Severe Pain in Verified 03/21/23 [...] (Auto) 46.7 L Lymph % (Auto) 39.9 Park % (Auto) 9.3 Eos % (Auto) 2.9 [...] Clarity Clear Urine pH 6.5 Ur Specific [place] 1.010 Urine Protein Negative Urine Glucose (UA) [...] (Auto) Neut % (Auto) Lymph % (Auto) [place] % (Auto) Eos % (Auto) Baso % (Auto) Absolute Neuts (auto) Absolute Lymphs (auto) Nucleated RBC % Sodium Potassium Chloride Carbon Dioxide Anion Gap BUN Creatinine Estim Creat Clear Calc Est GFR (MDRD) Af Amer Est GFR (MDRD) Non-Af BUN/Creatinine Ratio Glucose Calcium Magnesium Troponin I High Sens 6 Urine Color Urine Clarity Urine pH Ur Specific [place] Urine Protein Urine Glucose (UA) Urine Ketones [...] musculoskeletal in nature. Heat the area andtake [id number] pain medication for symptom control. Continue all of yourhome medications as previously directed. Return to the ER should you have any further concerns Disposition Disposition: Home, Self Care What to do if you have Problems For any increased pain, shortness of breath, bleeding, nausea or vomiting, chestpain, or any unexpected problems, contact your Primary Care Provider. Call [facility] ([phone]) or report to the closest Emergency Room. Call 911 if necessary. 03/21/23 0538 <Electronically signed by Virgil Bazzi DO> Cosigner Signature (if applicable): CC: Dr. Kyara Odonnell MD ~ Signed [facility] Work Phone: Discharge summary Author Grzegorz Jamison [facility] Note Date/Time August 01, 2025 12:44pm [facility] Medical Records Department [address] [place] [address] Emergency Department Summary 08/01/25 MR#: [id number] Acct: [id number] Name: SHARON LOVE Rep #:[id number] : 1940 84 From: Grzegorz Jamison DO PCP: Dr. Joe Carey MD Status:REG ER Location: ED HPI History of Present Illness Chief Complaint: Fall Narrative Narrative: Patient is a 84-year-old female with past medical history of vertigo, hyperlipidemia, hypertension who presented to the emergency department the chiefcomplaint of head injury. Patient states that she was working out at [employer] and she was attempting to get off the treadmill when she was heading the wrong button to stop this and this caused her to fall strike the right side of her head. States that a family member is in the hospital currently with a head bleed and she is concerned about this therefore she came here to be evaluated. Patient denies any blood thinning medications. Patient states that she did not lose consciousness she members entire event and has no other pain. States that she does feel little bit off balance however she states that she hasa history of vertigo and this feels similar to her vertigo. [facility] Medical History Abnormal bruising Myocardial infarct Essential hypertension Unstable angina Sensorineural hearing loss Dehydration Hypokalemia HLD (hyperlipidemia) Vertigo Intractable nausea and vomiting Home Medications ?Medication ?Instructions ?Recorded ?Last Taken ?Type aspirin 81 mg chewable tablet 81 mg PO QHS heart healt h 02/15/14 08/01/25 History glucosamine sulfate 2KCl 500 mg 1,000 mg PO BID supple ment 02/15/14 08/01/25 History capsule (Glucosamine Relief) multivitamin with folic acid 400 1 tab PO DAILY supple ment 02/15/14 08/01/25 History mcg tablet (Thera) nitroglycerin 0.4 mg sublingual 0.4 mg sublingual Q5M PRN Chest 12/10/22 Unknown Rx tablet pain #30 tabs losartan 100 mg tablet 100 mg PO QHS Pt going out o f 12/05/23 08/01/25 Rx state for 3 months #90 tabs calcium carbonate (Calcium 600) 600 mg PO DAILY 08/01/25 History cholecalciferol (vitamin D3) 25 25 mcg PO DAILY 08/01/25 History mcg (1,000 unit) tablet collagen 1,000 mg PO BID 06/19/2404/20 History vitamin E 670 mg (1,000 unit) 670 mg PO DAILY 06/19/24 08/01/25 History capsule coffee extract 100 mg-phosphatidyl cap PO 03/27/2504/20 History serine 100 mg capsule (Neuriva Original) hydrochlorothiazide 12.5 mg tablet 12.5 mg PO DAILY #9 0 tabs 03/27/25 08/01/25 Rx phytosterol 300 mg-pantethine 100 1 cap PO BID 5 Unknown History mg capsule (CholestOff Complete) metoprolol succinate 25 mg 25 mg PO QHS #90 tabs 04/0408/01/25 Rx tablet,extended release 24 hr amlodipine 2.5 mg tablet 5 mg PO DAILY blood pressure 08/01/25 08/01/25 History meclizine 25 mg tablet 25 mg PO BID PRN dizziness # 20 tabs 08/01/25 Unknown Rx Allergy/AdvReac Type Severity Reaction Status Date / Time [place]-MGI-KhM Reductase Allergy Severe Pain in Verified 08/01/25 09:48 Inhibitor joints Penicillins Allergy Unknown Verified 08/01/25 09:48 metoprolol AdvReac Intermediate Other Verified 08/01/25 09:48 Family History Sister Pacemaker Father CVA (cerebral vascular accident) Surgical History History of cholecystectomy History of coronary artery stent placement (12/09/22) H/O: hysterectomy Social History Smoking Status: Never smoker alcohol intake: never substance use type: does not use caffeine: No ROS ROS ED ROS Narrative Constitutional: Complains of vertigo symptoms, denies any lightheadedness, fevers or chills Eyes: Denies double vision Cardiovascular: Denies chest pain Respiratory: Denies shortness of Abdomen: Denies nausea vomiting diarrhea Neurological: Denies numbness, tingling, weakness Skin: Denies any rashes or lesions EXAM Physical Exam Narrative Exam Narrative: General: Patient lying in bed rest comfortably did not appear to be in acute distress Head: Atraumatic, normocephalic Eyes: PERRL bilaterally, EOMI bilaterally, no conjunctival injection noted Neck: Soft, supple, trachea midline Cardiovascular: Regular rate and rhythm Respiratory: Clear to auscultation bilaterally Abdomen: Soft, nondistended, no tenderness to palpation Musculoskeletal: All bony prominences palpated joints taken through full range of motion no pain elicited Extremities: +5/5 strength noted in the bilateral upper and lower extremities Neurological: Patient following commands knew that she was at [facility] year is 2024 NIH of 0 GCS 15 Skin: Warm, dry, intact no rashes or lesions noted Const Vital Signs: 08/01/25 09:39 08/01/25 09:46 08/01/25 11:08 Temperature 97.6 F L Temperature Source Temporal Pulse Rate 72 65 Respiratory Rate 14 16 Respiratory Effort Normal Respiratory Depth Normal Respiratory Pattern Normal Blood Pressure 171/90 H 163/82 H Blood Pressure Mean 117 109 Pulse Ox 99 97 98 Oxygen Delivery Method Room Air Room Air Room Air MDM MDM MDM Narrative Medical decision making narrative: Patient is a 84-year-old female who presented to the emergency department after falling while on the treadmill striking her head. On the differential diagnose includes but not limited to intracranial hemorrhage, cervical spine fracture, concussion. Once the workup is obtained reviewed she will be reevaluated. Patient CT head and brain without contrast showed no acute intracranial hemorrhage or acute ischemia chronic microvascular ischemia and volume loss noted. Patient CT cervical spine reviewed and showed degenerative changes cervical spine no evidence of osseous central canal or neuro foraminal stenosis. Patient states that she was still having some dizziness therefore she was given meclizine. On reevaluation again she is feeling much improved would like to go home at thispoint time. Patient be given prescription for meclizine and was advised to use this as prescribed. She is vies return with worsening symptoms or concerns. She is agreeable spinal course concerns answered she was discharged home in stable condition. Patient ambulated well here in the emergency department. Radiography Diagnostic Testing: Clinical Impression(s) from Imaging Studies Brain CT 08/01/25 09:47 IMPRESSION: 1. No evidence of intracranial hemorrhage or acute ischemia. 2. Changes of chronic microvascular ischemia and volume loss. Reading Location: [id number] Cervical Spine CT 08/01/25 09:47 IMPRESSION: DEGENERATIVE CHANGES OF THE CERVICAL SPINE. NO EVIDENCE OF SIGNIFICANT OSSEOUS CENTRAL CANAL OR NEURAL FORAMINAL STENOSIS. Reading Location: [facility] Discharge Plan Triage Chief Complaint: Fall ED Provider: Grzegorz Jamison Dx/Rx/DC Orders Clinical Impression: Closed head injury without loss of consciousness, Essential hypertension, Hx ofvertigo Prescriptions: New meclizine 25 mg tablet 25 mg PO BID PRN (Reason: dizziness) Qty: 20 0RF No Action calcium carbonate [Calcium 600] 600 mg calcium (1,500 mg) tablet 600 mg PO DAILY collagen 1,000 mg PO BID cholecalciferol (vitamin D3) 25 mcg (1,000 unit) tablet 25 mcg PO DAILY vitamin E 670 mg (1,000 unit) capsule 670 mg PO DAILY Neuriva Original 100-100 mg capsule PO CholestOff Complete 300-100 mg capsule 1 cap PO BID aspirin 81 MG tablet,chewable 81 mg PO QHS Patient Comments: HEART/BLOOD THINNER Glucosamine Relief 500 MG capsule 1,000 mg PO BID Patient Comments: VITAMIN/HERB multivitamin with folic acid [Thera] 1 TABLET tablet 1 tab PO DAILY Patient Comments: VITAMIN nitroglycerin 0.4 mg Tablet, Sublingual 0.4 mg sublingual Q5M PRN (Reason: Chest pain) Qty: 30 0RF amlodipine 2.5 mg tablet 5 mg PO DAILY losartan 100 mg tablet 100 mg PO QHS Qty: 90 3RF hydrochlorothiazide 12.5 mg tablet 12.5 mg PO DAILY Qty: 90 3RF metoprolol succinate 25 mg tablet extended release 24 hr 25 mg PO QHS Qty: 90 3RF Primary Care Provider: Joe Carey Referrals: Joe Carey MD [Primary Care Provider] - Activity Restrictions/Additional Instructions: Your CT of your head and your neck did not show any acute broken bones no bleeding in your head. Use the prescription for your vertigo that was sent to your pharmacy as prescribed. Return with worsening symptoms or any other concerns. Print Language: German Disposition Disposition: Home, Self Care What to do if you have Problems For any increased pain, shortness of breath, bleeding, nausea or vomiting, chestpain, or any unexpected problems, contact your Primary Care Provider. Call [facility] ([phone]) or report to the closest Emergency Room. Call 911 if necessary. 08/01/25 1244 <Electronically signed by Grzegorz Jamison DO> Cosigner Signature (if applicable): CC: Dr. Joe Carey MD ~ Signed [facility] Work Phone: Evaluation noteNo assessment information available [facility] Work Phone: Evaluation note* Diagnosis Onset Date Resolution Status Chest pain acute NSTEMI, initial episode of care acute Unstable angina acute [facility] Work Phone: Evaluation note* Diagnosis Onset Date Resolution Status Chest pain acute HLD (hyperlipidemia) acute NSTEMI, initial episode of care acute Unstable angina acute HTN (hypertension) chronic [facility] Work Phone: Evaluation note* Diagnosis Onset Date Resolution Status Chest pain acute HLD (hyperlipidemia) acute NSTEMI, initial episode of care acute Unstable angina acute [facility] Work Phone: Evaluation note* Diagnosis Onset Date Resolution Status Chest pain resolved NSTEMI, initial episode of care resolved [facility] Work Phone: Evaluation note* Diagnosis Onset Date Resolution Status Chest pain resolved NSTEMI, initial episode of care resolved Atherosclerotic heart diseas e of [place] coronary artery without angina pectoris acute Irregular heart beat acute Essential hypertension [facility] Work Phone: Evaluation note* Diagnosis Onset Date Resolution Status HLD (hyperlipidemia) acute Chest pain resolved NSTEMI, initial episode of care resolved Atherosclerotic heart diseas e of [place] coronary artery without angina pectoris acute Irregular heart beat acute Essential hypertension [facility] Atherosclerotic heart diseas e of [place] coronary artery without angina pectoris acute HLD (hyperlipidemia) acute Essential hypertension [facility] Work Phone: Evaluation note* Diagnosis Onset Date Resolution Status Atherosclerotic heart diseas e of [place] coronary artery without angina pectoris acute Irregular heart beat acute Essential hypertension chron Atherosclerotic heart diseas e of [place] coronary artery without angina pectoris acute HLD (hyperlipidemia) acute Essential hypertension [facility] Work Phone: Evaluation note* Diagnosis Onset Date Resolution Status Atherosclerotic heart diseas e of [place] coronary artery without angina pectoris acute HLD (hyperlipidemia) acute Essential hypertension [facility] Work Phone: Hospital Discharge instructions Additional Instructions Your work-up today showed no signs of heart damage or kidney damage. Please continue to take your medications as directed by your doctor and return to the ER should you have any further concernsWSumma Health Work Phone: Hospital Discharge instructions Additional Instructions Your work-up today does not show any signs of heart damage and your physical exam indicates this is most likely musculoskeletal in nature. Heat the area and take [id number] pain medication for symptom control. Continue all of your home medications as previously directed. Return to the ER should you have any further concernsWSumma Health Work Phone: Hospital Discharge instructionsAdditional Instructions Your CT of your head and your neck did not show any acute broken bones no bleeding in your head. Use the prescription for your vertigo that was sent to your pharmacy as prescribed. Return with worsening symptoms or any other concerns.[facility] Work Phone: Hospital Discharge instructionsAdditional Instructions Your x-ray showed a S5 vertebral fracture. Please follow-up with Dr. Gonzalez to discuss any further treatment modalities or imaging studies if needed. You can try to control the pain with Tylenol and or Motrin and topical treatments such as lidocaine and/or IcyHot. If you have worsening of symptoms or any further concerns please return to the ER for repeat evaluationWSumma Health Work Phone: Progress note Author Debra Goodman [facility] Note Date/Time August 26, 2025 11:57am [facility] [address] [place] [address] OFFICE VISIT Date of Service: 08/26/25 MR#: [id number] Acct: [id number] Name: SHARON LOVE Rep #: [id number] : 1940 Provider: EPIFANIO Ni Age/Sex: 84/F Location: [facility] [place] Status: Signed HPI HPI History of Present Illness Details: Sharon Love is an 84 year old female that presented to [facility] on December 08, 2022 with chest discomfort. She did undergo a urgent heart catheterization which demonstrated severe coronary artery disease involving the circumflex with the obtuse marginal and the main circumflex arterywith significant stenosis noted. Moderate disease of the LAD. Patient underwent stenting to her OM 1 and mid circumflex. Metoprolol and Brilinta were added to patient's medications. She also has a history of hypertension and hyperlipidemia. She reports a recent fall from a treadmill, during which she struck her head. She was evaluated in the ED, where no acute findings were noted. Three days later, her PCP diagnosed a mild concussion without loss of consciousness. She denies chest pain, heaviness, tightness, or palpitations, but does note occasionally needing to take an extra breath while sitting or resting. She reports intermittent lower extremity edema, sometimes present in the morning, which she attributes to amlodipine. Current medications include amlodipine, losartan, aspirin, calcium, vitamin D, and glucosamine. She is no longer taking meclizine, which was previously prescribed for vertigo. She does not routinely monitor her blood pressure at home, but does so occasionally when she suspects it may be elevated. She has notused nitroglycerin and is no longer on dual antiplatelet therapy, remaining on aspirin only. Her most recent cholesterol level was 140 mg/dL, checked last year. Intake Vital Signs 06/19/24 14:17 03/27/25 07:43 08/01/25 09:39 08/26/25 11:38 08/26/25 11:40 Height 4 ft 11 in 4 ft 11 in 4 ft 11 in 4 ft 11 in Weight: 115 lb BP 111/68 Pulse 65 Intake Visit Reasons: 1 Y FU Allergies [id number] Reductase Inhibitor Allergy (Severe, Verified 08/01/25 09:48) Pain in joints Penicillins Allergy (Verified 08/01/25 09:48) Unknown metoprolol Adverse Reaction (Intermediate, Verified 08/01/25 09:48) Other Medications ?Medication ?Instructions ?Recorded ?Confirmed ?Type aspirin 81 mg chewable tablet 81 mg PO QHS heart healt h 02/15/14 08/26/25 History glucosamine sulfate 2KCl 500 mg 1,000 mg PO BID supple ment 02/15/14 08/26/25 History capsule (Glucosamine Relief) multivitamin with folic acid 400 1 tab PO DAILY supple ment 02/15/14 08/26/25 History mcg tablet (Thera) losartan 100 mg tablet 100 mg PO QHS Pt going out o f 12/05/23 08/26/25 Rx state for 3 months #90 tabs calcium carbonate (Calcium 600) 600 mg PO DAILY 08/26/25 History cholecalciferol (vitamin D3) 25 25 mcg PO DAILY 08/26/25 History mcg (1,000 unit) tablet collagen 1,000 mg PO BID 06/19/24 History vitamin E 670 mg (1,000 unit) 670 mg PO DAILY 06/19/24 08/26/25 History capsule coffee extract 100 mg-phosphatidyl cap PO 03/27/25 History serine 100 mg capsule (Neuriva Original) hydrochlorothiazide 12.5 mg tablet 12.5 mg PO DAILY #9 0 tabs 03/27/25 08/26/25 Rx phytosterol 300 mg-pantethine 100 1 cap PO BID 5 08/26/25 History mg capsule (CholestOff Complete) metoprolol succinate 25 mg 25 mg PO QHS #90 tabs 04/0408/26/25 Rx tablet,extended release 24 hr amlodipine 2.5 mg tablet 5 mg PO DAILY blood pressure 08/01/25 08/26/25 History nitroglycerin 0.4 mg sublingual 0.4 mg sublingual Q5M PRN Chest 08/26/25 08/26/25 Rx tablet pain #30 tabs Have you fallen in the past year?: [...] or transient loss of vision ENT ENT: Negative for headache(s), dizziness, tinnitus or Nosebleed/epistaxis Cardio Chest Pain: No Edema: None Muscle aches with walking: None Resp Respiratory: Negative for SOB with activity, SOB at rest or SOB orthopnea\\SOB lying down GI GI: Negative nausea, vomiting, heartburn or vomiting blood/hematemesis : Negative for hematuria Musc Musc: Negative for muscle aches/ myalgia Neuro Neuro: Negative for dizziness, lightheadedness, near syncope, syncope, headache(s) or weakness Sly Hematologic/Lymphatic: Negative for easy bleeding Endo Endo: Negative for fatigue Cardiology Exam Const Appearance: cooperative, healthy appearing, comfortable, no acute distress and well developed Orientation: alert, awake and oriented x3 Head Head: normal to inspection Ears: hearing grossly normal bilaterally Nose: external nose normal Face and Sinus: face symmetric Mouth: oral mucosae normal, lip normal and moist mucous membranes Eyes General: appearance normal, both eyes and all related structures Eyelids: eyelids normal Conjunctivae: conjunctivae normal Pupils: PERRL EOM: EOM intact bilaterally Neck Neck: normal visual inspection and trachea midline; Negative no JVD Carotids: Negative bruit Chest Chest inspection: normal inspection of the chest Auscultation: Bilateral: Clear to Auscultation Cardio Palpation: normal PMI Rate: regular rate Rhythm: regular rhythm Heart sounds: S1 normal, S2 normal and murmur; Negative rub or gallop Murmur: Grade 1/6, soft and mid systolic GI GI: soft, no hepatosplenomegaly and bowel sounds present Neuro General: patient alert, patient awake, patient oriented x3 and CN's II-XI intactbilaterally Extremities Pulses: Normal: Right Posterior Tibial Pulse, Left Posterior Tibial Pulse, RightRadial Pulse and Left Radial Pulse Lower Extremity Edema: None: Bilateral Psych Psychological: normal affect Supplemental Info Supplemental Information Cardiac cath with PCI 11/2022: 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 Moderate disease noted in the left anterior descending artery. RECOMMENDATIONS Referred for immediate PCI CORONARY ANGIOGRAPHY DOMINANCE:? Left Dominant LEFT HEART ASSESSMENT Left Ventricular Ejection Fraction: by LV Gram 60 % Normal LV wall motion Normal Left Ventricular systolic function LEFT MAIN: Angiographically normal, Non-obstructive LEFT ANTERIOR DESCENDING ARTERY: Moderate calcification, Moderate stenosis noted in the midsegment of approximately 60 to 70% stenosis. CIRCUMFLEX ARTERY: There are 2 tiny first obtuse marginal branches noted and a larger obtuse marginal branch with to 90% stenotic lesions noted. The mid circumflex artery has a 90% stenotic lesion.? The distal circumflex artery has no significant stenosis. RIGHT CORONARY ARTERY: No significant disease noted PCI 11/2022: Successful FARRUKH to OM1 and mLCx ? ? LESION SITE: 1st OM (Ostial) Lesion Complexity: High/C, chronic total occlusion: No, lesion at bifurcation: Yes, thrombus present: No, lesion length: 15 mm, culprit lesion: Yes, Previously treated lesion: No ?Pre Stenosis: 99 % Pre intervention CONNOR flow: 2 PROCEDURE: Drug Eluting Stent with pre dilatation. Due to the angle of takeoff of the vessel it was initially difficult to enter with a wire and then with a balloon. We had to use a guideliner inserted into the mLCx to facilitate PTCA. We decided to go with a short stent to try to cover the ostial lesion alone as we had a good angioplasty result with the proximal OM1 lesion. We tried to place the stent exactly at the ostum without extending into the LCx as that could interfere with PCI of the LCx. After FARRUKH to the LCx, there was plaque shift into the OM1. We recrossed into the OM1 with the wire but the balloon did not cross. Post Stenosis: 50 %? Post intervention CONNOR flow: 3 Lesion Devices: Shipley .014 190cm BMW [place] Straight Medtronic 6 Fr JL3.5 100cm Guide Catheter Terumo .014 180cm Runthrough Extra Floppy straight Dexter Sci EMERGE MR 2.50x20 BALLOON Dexter Sci EMERGE MR 1.50x15 BALLOON [employer] 6 [place] [facility] FARRUKH 2.5x9 LESION SITE: Circumflex (Mid) Lesion Complexity: High/C, chronic total occlusion: No, lesion at bifurcation: Yes, thrombus present: No, lesion length: 7 mm, culprit lesion: Yes, Previously treated lesion: No ?Pre Stenosis: 90 %? Pre intervention CONNOR flow: 3 PROCEDURE: Drug Eluting Stent with pre dilatation. Post Stenosis: 0 %? Post intervention CONNOR flow: 3 Lesion Devices: Shipley .014 190cm BMW [place] Straight Medtronic 6 Fr JL3.5 100cm Guide Catheter Terumo .014 180cm Runthrough Extra Floppy straight V[employer] Solutions 6 [place] GuideLiner [place] MR FARRUKH 4.0x9 Echocardiogram 12/09/2022: Normal LV size. Left ventricular systolic function is normal. The estimated ejection fraction is 60 %. Mild focal aortic valve calcification. Stage 1 diastolic dysfunction. ? Labs: LDL Cholesterol, (0-130) 64 mg/dL HDL Cholesterol, (40-) 48 mg/dL Cholesterol, (200) 144 mg/dL Triglycerides, (-199) 160 mg/dL Diagnostics: Electrocardiogram Echocardiogram Stress Test Stress Test Nuclear Medicine Cardiac Catheterization Cardiac Intervention Chest X-Ray Chest CTA Past Visits: Cardiology Visit Today Assessment and Plan Assessment and Plan (1) History of coronary artery stent placement: Status: Acute Comment: Osiro 2.5 X 9 FARRUKH to first OM ostial, and Osiro 4.0 X 9 FARRUKH to CX 11/2022 (2) Essential hypertension: Status: Chronic (3) HLD (hyperlipidemia): Status: Acute Comment: intolerant of statins Orders: Orders 12 Lead EKG performed by BMS Today I25.10 - Atherosclerotic heart disease of [place] coronary artery without angina pectoris Liver Profile Today E78.5 - Hyperlipidemia, unspecified, I10 - Essential (primary) hypertension, Z95.5 - Presence of coronary angioplasty implant and graft Lipid Profile Today E78.5 - Hyperlipidemia, unspecified, I10 - Essential (primary) hypertension, Z95.5 - Presence of coronary angioplasty implant and graft Medications: Refilled nitroglycerin 0.4 mg sublingual Q5M PRN 30 tabs 1RF Chest pain Plan 1. Presence of coronary angioplasty implant and graft: - Patient remains stable without chest pain, heaviness, or tightness; recent EKGis unchanged and normal. - Continues on aspirin therapy; no additional antiplatelet agents are currently prescribed. - Provided prescription for sublingual nitroglycerin to use if angina-like symptoms arise. - Advised routine follow-up in 6 months with this office and yearly evaluation with Dr. Durham. 2. Essential (primary) hypertension: - Well-controlled per office and occasional home readings; patient remains on amlodipine and losartan. - Mild pedal edema likely related to amlodipine; recommended light compression stockings for symptomatic relief. - No medication adjustments indicated at this time. - Follow-up in 6 months as scheduled. 3. Hyperlipidemia: - Last known total cholesterol was 140 mg/dL from prior testing in the previous year. - Ordered non-fasting lipid panel to reassess current levels. 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) Coding Level of Care Code Off vis,est,level 4 Diagnoses History of coronary artery stent placement Z95.5 Essential hypertension I10 HLD (hyperlipidemia) E78.5 Coding Level of Care Code Off vis,est,level 4 Diagnoses History of coronary artery stent placement Z95.5 Essential hypertension I10 HLD (hyperlipidemia) E78.5 Clinical Quality Measures Falls Risk Screening/Assistive Devices Have you fallen in the past year?: No 08/26/25 1206 <Electronically signed by Debra Funes> Date _ Debra GODFREY Cosigner Signature: Date (if applicable) CC: ~ [facility] Work Phone: Reason for referral (narrative)No reason for referral information availableWSumma Health Work Phone: Chief Complaint and Reason for Visit Chief [...] post cath Bigg HYPERTENTION PCI w/coronary stenting, NC NonSTEMI large bruises back of left leg Bigg EORDASHLEY PCI w/coronary stenting Reason for Visit Chest pain NSTEMI, initial episode of care Chief Complaint NSTEMI CP NSTEMI NSTEMI NSTEMI NSTEMI Right foot dark post cath L.Lorson HYPERTENTION PCI w/coronary stenting, NC NonSTEMI large bruises back of left leg L.Lorson EORDER PCI w/coronary stenting PCI w/coronary stenting Reason for Visit Chest pain NSTEMI, initial episode of care Chief Complaint NSTEMI CP NSTEMI NSTEMI NSTEMI NSTEMI Right foot dark post cath L.Lorson HYPERTENTION PCI w/coronary stenting, NC NonSTEMI large bruises back of left leg L.Lorson EORDER PCI w/coronary stenting PCI w/coronary stenting S/P NSTEMI/PCI ASHD, HTN, DIZZINESS *LUZ TO READ* Reason for Visit Chest pain NSTEMI, initial episode of care Atherosclerotic heart disease of [place] coronary artery without angina pectoris Irregular heart beat Essential hypertension Chief Complaint NSTEMI CP NSTEMI NSTEMI NSTEMI NSTEMI Right foot dark post cath L.Lorson HYPERTENTION PCI w/coronary stenting, NC NonSTEMI large bruises back of left leg L.Lorson EORDER PCI w/coronary stenting PCI w/coronary stenting S/P NSTEMI/PCI ASHD, HTN, DIZZINESS *LUZ TO READ* 6 wk FU INT LABS PCI w/coronary stenting back pain, numbness Reason for Visit HLD (hyperlipidemia) Chest pain NSTEMI, initial episode of care Atherosclerotic heart disease of [place] coronary artery without angina pectoris Irregular heart beat Essential hypertension Atherosclerotic heart disease of [place] coronary artery without angina pectoris HLD (hyperlipidemia) Essential hypertension Chief Complaint NSTEMI CP NSTEMI NSTEMI NSTEMI NSTEMI Right foot dark post cath L.Lorson HYPERTENTION PCI w/coronary stenting, NC NonSTEMI large bruises back of left leg L.Lorson EORDER PCI w/coronary stenting PCI w/coronary stenting S/P NSTEMI/PCI ASHD, HTN, DIZZINESS *LUZ TO READ* 6 wk FU INT LABS back pain, numbness PCI w/coronary stenting Reason for Visit HLD (hyperlipidemia) Chest pain NSTEMI, initial episode of care Atherosclerotic heart disease of [place] coronary artery without angina pectoris Irregular heart beat Essential hypertension Atherosclerotic heart disease of [place] coronary artery without angina pectoris HLD (hyperlipidemia) Essential hypertension Chief Complaint PCI w/coronary stent ing S/P NSTEMI/PCI ASHD, HTN, DIZZINESS *LUZ TO READ* 6 wk FU INT LABS back pain, numbness PCI w/coronary stenting PCI w/coronary stenting Reason for Visit Atherosclerotic hear t disease of [place] coronary artery without angina pectoris Irregular heart beat Essential hypertension Atherosclerotic heart disease of [place] coronary artery without angina pectoris HLD (hyperlipidemia) Essential hypertension Chief Complaint 6 wk FU INT LABS back pain, numbness PCI w/coronary stenting PCI w/coronary stenting SCREENING TACHYCARDIA AND PALPITATIONS PCI w/coronary stenting Reason for Visit Atherosclerotic hear t disease of [place] coronary artery without angina pectoris HLD (hyperlipidemia) [...] Admit Date Atherosclerotic heart diseas e of [place] coronary artery without angina pectoris December 18, 2024 1:46pm HLD (hyperlipidemia) December 18, 2024 1:46pm Essential hypertension December 18 1:46pm Chief Complaint Admit Date 6 M FU December 18, 2024 1 :46pm E-ORDER February 25, 2025 1:34 pm Fast Heart Rate (Cherry) March 27, 2025 9:1 1am Reason for Visit Admit Date Atherosclerotic heart diseas e of [place] coronary artery without angina pectoris December 18, 2024 1:46pm HLD (hyperlipidemia) December 18, 2024 1:46pm Essential hypertension December 18 1:46pm Atherosclerotic heart diseas e of [place] coronary artery without angina pectoris March 27, 2025 9:11am HLD (hyperlipidemia) March 27, 2025 9:11a m Tachycardia March 27, 2025 9:11am Essential hypertension March 27, 2025 9:1 1am Chief Complaint Admit Date E-ORDER February 25, 2025 1:34 pm Fast Heart Rate (Cherry) March 27, 2025 9:1 1am BILAT LOWER EXT NEUROPATHY May 07 8:18am BILAT LOWER EXT NEUROPATHY May 07 12:45pm Reason for Visit Admit Date Atherosclerotic heart diseas e of [place] coronary artery without angina pectoris March 27, 2025 9:11am HLD (hyperlipidemia) March 27, 2025 9:11a m Tachycardia March 27, 2025 9:11am Essential hypertension March 27, 2025 9:1 1am Chief Complaint Admit Date E-ORDER February 25, 2025 1:34 pm Fast Heart Rate (Cherry) March 27, 2025 9:1 1am BILAT LOWER EXT NEUROPATHY May 07 8:18am BILAT LOWER EXT NEUROPATHY May 07 12:45pm Anesthesia of skin May 28, 2025 11:44 am Chief Complaint Admit Date Fast Heart Rate (Cherry) March 27, 2025 9:1 1am BILAT LOWER EXT NEUROPATHY May 07 8:18am BILAT LOWER EXT NEUROPATHY May 07 12:45pm Anesthesia of skin May 28, 2025 11:44 am E ORDR June 12, 2025 9:49 am SCREENING July 07, 2025 7: 20am Chief Complaint Admit Date BILAT LOWER EXT NEUROPATHY May 07 8:18am BILAT LOWER EXT NEUROPATHY May 07 12:45pm Anesthesia of skin May 28, 2025 11:44 am E ORDR June 12, 2025 9:49 am SCREENING July 07, 2025 7: 20am fall August 01, 2025 9:38am Chief Complaint Admit Date BILAT LOWER EXT NEUROPATHY May 07 8:18am BILAT LOWER EXT NEUROPATHY May 07 12:45pm Anesthesia of skin May 28, 2025 11:44 am E ORDR June 12, 2025 9:49 am SCREENING July 07, 2025 7: 20am fall August 01, 2025 9:38am 1 Y FU August 26, 2025 10:40am Reason for Visit Admit Date History of coronary artery stent placeme nt August 26, 2025 10:40am HLD (hyperlipidemia) August 26 10:40am Essential hypertension August 26, 2 025 10:40am Chief Complaint Admit Date BILAT LOWER EXT NEUROPATHY May 07 8:18am BILAT LOWER EXT NEUROPATHY May 07 12:45pm Anesthesia of skin May 28, 2025 11:44 am E ORDR June 12, 2025 9:49 am SCREENING July 07, 2025 7: 20am fall August 01, 2025 9:38am 1 Y FU August 26, 2025 10:40am fall September 02, 2025 2: 28am Family History No Family History Records Found [...] Yes August 09, 2021 7:44am Power of Whiteprinting Machine Operator Yes July 7:44am Advance Directive Response Recorded Date/ Time Advance Directives Yes December 09, 2016 6:30pm Living Will Yes December 08 6:58pm Power of Whiteprinting Machine Operator Yes December 08, 2022 6:58pm Name of Medical Power of Whiteprinting Machine Operator . December 08, 2022 6:58pm Advance Directive Response Recorded Date/ Time Name of Medical Power of Whiteprinting Machine Operator Pollo Danitasy December 08, 2022 11:22pm Advance Directives Yes December 09, 2016 6:30pm Living Will Yes December 08 11:22pm Power of Whiteprinting Machine Operator Yes December 08, 2022 11:22pm Advance Directive Response Recorded Date/ Time Name of Medical Power of Whiteprinting Machine Operator Pollo Love December 08, 2022 11:22pm Name of Medical Power of Whiteprinting Machine Operator POLLO BRUMFIELD December 15, 2022 12:17am Advance Directives Yes December 12, 2022 9:54am Living Will Yes December 15 12:17am Power of Whiteprinting Machine Operator Yes December 15, 2022 12:17am Advance Directive Response Recorded Date/ Time Name of Medical Power of Whiteprinting Machine Operator Pollo Love December 08, 2022 11:22pm Advance Directives on File No Héctor ry 2022 10:16am Advance Directives Yes December 12, 2022 9:54am Living Will No December 19 10:16am Power of Whiteprinting Machine Operator No December 19, 2022 10:16am Name of Medical Power of Whiteprinting Machine Operator POLLO BRUMFIELD December 15, 2022 12:17am Advance Directive Response Recorded Date/ Time Name of Medical Power of Whiteprinting Machine Operator Pollo Love December 09, 2022 12:22am Advance Directives on File No Novgonzález ry 2022 11:16am Name of Medical Power of Whiteprinting Machine Operator POLLO BRUMFIELD December 15, 2022 1:17am Name of Medical Power of Whiteprinting Machine Operator Chetna Love March 21, 2023 3:18am Advance Directives Yes December 12, 2022 10:54am Living Will Yes March 21, 2023 3:18am Power of Whiteprinting Machine Operator Yes March 21 3:18am Advance Directive Response Recorded Date/ Time Name of Medical Power of Whiteprinting Machine Operator Chetna Love March 21, 2023 3:18am Advance Directives Yes December 12, 2022 10:54am Living Will Yes March 21, 2023 3:18am Power of Whiteprinting Machine Operator Yes March 21 3:18am Advance Directive Response Recorded Date/ Time Advance Directives Yes December 12, 2022 10:54am Living Will Yes March 21, 2023 3:18am Power of Whiteprinting Machine Operator Yes March 21 3:18am Advance Directive Response Recorded Date/ Time Advance Directives Yes December 12, 2022 9:54am Living Will Yes March 21, 2023 2:18am Power of Whiteprinting Machine Operator Yes March 21 2:18am Advance Directive Response Recorded Date/ Time Living Will Yes March 21, 2023 3:18am Do you have a Healthcare Power of Whiteprinting Machine Operator? Yes March 21, 2023 3:18am Advance Directives Yes December 12, 2022 10:54am Advance Directive Response Recorded Date/ Time Advance Directives Yes December 12, 2022 10:54am Advance Directive Response Recorded Date/ Time Do you have a Healthcare Pow er of Whiteprinting Machine Operator? Yes August 01, 2025 9:46am Name of Medical Power of Whiteprinting Machine Operator - POLLO LOVE August 01, 2025 9:46am Advance Directives Yes December 12, 2022 10:54am Advance Directive Response Recorded Date/ Time Living Will Yes March 21, 2023 3:18am Do you have a Healthcare Pow er of Whiteprinting Machine Operator? Yes March 21, 2023 3:18am Do you have a Healthcare Pow er of Whiteprinting Machine Operator? Yes August 01, 2025 9:46am Name of Medical Power of Whiteprinting Machine Operator JEAN CARLOS- POLLO LOVE August 01, 2025 9:46am Advance Directives Yes December 12, 2022 10:54am Advance Directive Response Recorded Date/ Time Living Will Yes March 21, 2023 3:18am Do you have a Healthcare Pow er of Whiteprinting Machine Operator? Yes March 21, 2023 3:18am Do you have a Healthcare Pow er of Whiteprinting Machine Operator? Yes August 01, 2025 9:46am Name of Medical Power of Whiteprinting Machine Operator RANDEE LOVE August 01, 2025 9:46am Do you have a Healthcare Pow er of Whiteprinting Machine Operator? No September 02, 2025 2:31am Advance Directives Yes December 12, 2022 10:54am Summary Purpose Additional Source Comments Goals (unrecognized section and content) Goals may [...] Care Provider, Referrin g Provider Active Debra Goodman PA, PA Attending Provider Active Team Status: Inactive Member Role Status Dates Dr. Kyara Odonnell MD Primary Care Provider Active Debra Goodman PA, PA Attending Provider, Referr ing Provider Active Team Status: Active Member Role Status Dates Dr. Kyara Odonnell MD Primary Care Provider Active Debra Goodman PA, PA Attending Provider, Referr ing Provider Active [...] Odonnell MD Primary Care Provider Active Joe Carey MD Attending Provider, Referring Provide r Active Team Status: Inactive Member Role Status Dates Dr. Kyara Odonnell MD Primary Care Provider Active Joe Carey MD Attending Provider Active Team Status: Active Member Role Status Dates Dr. Kyara Odonnlel MD Family Provider Active Joe Carey MD Primary Care Provider Active Team Status: [...] Team Status: Inactive Member Role Status Bartolo Carey MD Primary Care Provider Active St art: February 25, 2025 End: February 25, 2025 Joe Carey MD Attending Provider Active Start : February 25, 2025 End: February 25, 2025 Joe Carey MD Referring Provider Active Start : February 25, 2025 End: February 25, 2025 Team Status: Inactive Member Role Status Bartolo Carey MD Primary Care Provider Active St art: March 27, 2025 End: March 27, 2025 Joe Carey MD Referring Provider Active Start : March 27, 2025 End: March 27, 2025 Debra Goodman PA, PA Attending Provider Active Start: March 27, 2025 End: March 27, 2025 Team Status: Inactive Member Role Status Bartolo Carey MD Primary Care Provider Active St art: March 27, 2025 End: March 27, 2025 Debra Goodman PA, PA Attending Provider Active Start: March 27, 2025 End: March 27, 2025 Debra Goodman PA, PA Referring Provider Active Start: March 27, 2025 End: March 27, 2025 Team Status: Active Member Role Status Bartolo Carey MD Primary Care Provider Active Team Status: Inactive Member Role Status Bartolo Carey MD Primary Care Provider Active St art: May 07, 2025 End: May 07, 2025 Dr. Lazaro Calles DPM Attending Provider Active Start: May 07, 2025 End: May 07, 2025 Dr. Lazaro Calles DPM Referring Provider Active Start: May 07, 2025 End: May 07, 2025 Team Status: Active Member Role Status Bartolo Carey MD Primary Care Provider Active St art: May 07, 2025 Dr. Lazaro Calles DPM Referring Provider Active Start: May 07, 2025 Dr. Lazaro Calles DPM Other Provider Active Start: May 07, 2025 Dr. Abigail Guerrero MD Attending Provider Active S tart: May 07, 2025 Team Status: Active Member Role/Relationship Status Bartolo Carey MD Primary Care Provider Active Team Status: Inactive Member Role/Relationship Status Bartolo Carey MD Primary Care Provider Active St art: February 25, 2025 End: February 25, 2025 Joe Carey MD Attending Provider Active Start : February 25, 2025 End: February 25, 2025 Joe Carey MD Referring Provider Active Start : February 25, 2025 End: February 25, 2025 Team Status: Inactive Member Role/Relationship Status Bartolo Carey MD Primary Care Provider Active St art: March 27, 2025 End: March 27, 2025 Joe Carey MD Referring Provider Active Start : March 27, 2025 End: March 27, 2025 Debra GODFREY PA Attending Provider Active Start: March 27, 2025 End: March 27, 2025 Team Status: Inactive Member Role/Relationship Status Bartolo Carey MD Primary Care Provider Active St art: March 27, 2025 End: March 27, 2025 Debra Goodman PA, PA Attending Provider Active Start: March 27, 2025 End: March 27, 2025 Debra Goodman PA, PA Referring Provider Active Start: March 27, 2025 End: March 27, 2025 Team Status: Inactive Member Role/Relationship Status Bartolo Carey MD Primary Care Provider Active St art: May 07, 2025 End: May 07, 2025 Dr. Lazaro Calles DPM Attending Provider Active Start: May 07, 2025 End: May 07, 2025 Dr. Lazaro Calles DPM Referring Provider Active Start: May 07, 2025 End: May 07, 2025 Team Status: Active Member Role/Relationship Status Bartolo Carey MD Primary Care Provider Active St art: May 07, 2025 Dr. Lazaro Calles DPM Referring Provider Active Start: May 07, 2025 Dr. Lazaro Calles DPM Other Provider Active Start: May 07, 2025 Dr. Abigail Guerrero MD Attending Provider Active S tart: May 07, 2025 Team Status: Inactive Member Role/Relationship Status Bartolo Carey MD Primary Care Provider Active St art: May 28, 2025 End: May 28, 2025 Yin Rosales PHYSICIAN RELATIONS REPRESENTATIVE, PHYSICIAN RELATIONS REPRESENTATIVE-C Attending Provider Active Start: May 28, 2025 End: May 28, 2025 Yin Rosales NP, PHYSICIAN RELATIONS REPRESENTATIVE-C Referring Provider Active Start: May 28, 2025 End: May 28, 2025 Team Status: Inactive Member Role/Relationship Status Bartolo Carey MD Primary Care Provider Active St art: March 27, 2025 End: March 27, 2025 Joe Carey MD Referring Provider Active Start : March 27, 2025 End: March 27, 2025 Debra Goodman PA, PA Attending Provider Active Start: March 27, 2025 End: March 27, 2025 Team Status: Inactive Member Role/Relationship Status Bartolo Carey MD Primary Care Provider Active St art: March 27, 2025 End: March 27, 2025 Debra Goodman PA, PA Attending Provider Active Start: March 27, 2025 End: March 27, 2025 Debra GODFREY PA Referring Provider Active Start: March 27, 2025 End: March 27, 2025 Team Status: Inactive Member Role/Relationship Status Bartolo Carey MD Primary Care Provider Active St art: May 07, 2025 End: May 07, 2025 Dr. Lazaro Calles DPM Attending Provider Active Start: May 07, 2025 End: May 07, 2025 Dr. Lazaro Calles DPM Referring Provider Active Start: May 07, 2025 End: May 07, 2025 Team Status: Active Member Role/Relationship Status Bartolo Carey MD Primary Care Provider Active St art: May 07, 2025 Dr. Lazaro Calles DPM Referring Provider Active Start: May 07, 2025 Dr. Lazaro Calles DPM Other Provider Active Start: May 07, 2025 Dr. Abigail Guerrero MD Attending Provider Active S tart: May 07, 2025 Team Status: Inactive Member Role/Relationship Status Bartolo Carey MD Primary Care Provider Active St art: May 28, 2025 End: May 28, 2025 Yin Shankel PHYSICIAN RELATIONS REPRESENTATIVE, PHYSICIAN RELATIONS REPRESENTATIVE-C Attending Provider Active Start: May 28, 2025 End: May 28, 2025 Yin Rosales PHYSICIAN RELATIONS REPRESENTATIVE, PHYSICIAN RELATIONS REPRESENTATIVE-C Referring Provider Active Start: May 28, 2025 End: May 28, 2025 Team Status: Active Member Role/Relationship Status Bartolo Carey MD Primary Care Provider Active St art: June 12, 2025 Joe Carey MD Attending Provider Active Start : June 12, 2025 Joe Carey MD Referring Provider Active Start : June 12, 2025 Team Status: Inactive Member Role/Relationship Status Bartolo Carey MD Primary Care Provider Active St art: July 07, 2025 End: July 07, 2025 Dr. Price Madden MD Attending Provider Active St art: July 07, 2025 End: July 07, 2025 Dr. Price Madden MD Referring Provider Active St art: July 07, 2025 End: July 07, 2025 Team Status: Inactive Member Role/Relationship Status Bartolo Carey MD Primary Care Provider Active St art: May 07, 2025 End: May 07, 2025 Dr. Lazaro Calles DPM Attending Provider Active Start: May 07, 2025 End: May 07, 2025 Dr. Lazaro Calles DPM Referring Provider Active Start: May 07, 2025 End: May 07, 2025 Team Status: Active Member Role/Relationship Status Bartolo Carey MD Primary Care Provider Active St art: May 07, 2025 Dr. Lazaro Calles DPM Referring Provider Active Start: May 07, 2025 Dr. Lazaro Calles DPM Other Provider Active Start: May 07, 2025 Dr. Abigail Guerrero MD Attending Provider Active S tart: May 07, 2025 Team Status: Inactive Member Role/Relationship Status Bartolo Carey MD Primary Care Provider Active St art: May 28, 2025 End: May 28, 2025 Yin Rosales NP, PHYSICIAN RELATIONS REPRESENTATIVE-C Attending Provider Active Start: May 28, 2025 End: May 28, 2025 Yin Rosales PHYSICIAN RELATIONS REPRESENTATIVE, PHYSICIAN RELATIONS REPRESENTATIVE-C Referring Provider Active Start: May 28, 2025 End: May 28, 2025 Team Status: Active Member Role/Relationship Status Bartolo Carey MD Primary Care Provider Active St art: June 12, 2025 Joe Carey MD Attending Provider Active Start : June 12, 2025 Joe Carey MD Referring Provider Active Start : June 12, 2025 Team Status: Inactive Member Role/Relationship Status Bartolo Carey MD Primary Care Provider Active St art: July 07, 2025 End: July 07, 2025 Dr. Price Madden MD Attending Provider Active St art: July 07, 2025 End: July 07, 2025 Dr. Price Madden MD Referring Provider Active St art: July 07, 2025 End: July 07, 2025 Team Status: Inactive Member Role/Relationship Status Bartolo Carey MD Primary Care Provider Active St art: August 01, 2025 End: August 01, 2025 Dr. Grzegorz Jamison , Emergency Provider Active Start: August 01, 2025 End: August 01, 2025 Team Status: Active Member Role/Relationship Status Bartolo Carey MD Primary care physician Active Team Status: Inactive Member Role/Relationship Status Bartolo Carey MD Primary care physician Active S tart: May 07, 2025 End: May 07, 2025 Dr. Lazaro Calles DPM Attending physician Active Start: May 07, 2025 End: May 07, 2025 Dr. Lazaro Calles DPM Referring Provider Active Start: May 07, 2025 End: May 07, 2025 Team Status: Active Member Role/Relationship Status Bartolo Carey MD Primary care physician Active S tart: May 07, 2025 Dr. Lazaro Calles DPM Referring Provider Active Start: May 07, 2025 Dr. Lazaro Calles DPM Nurse Practitioner Active Start: May 07, 2025 Dr. Abigail Guerrero MD Attending physician Active Start: May 07, 2025 Team Status: Inactive Member Role/Relationship Status Bartolo Carey MD Primary care physician Active S tart: May 28, 2025 End: May 28, 2025 Yin Rosales NP, PHYSICIAN RELATIONS REPRESENTATIVE-C Attending physician Active Start: May 28, 2025 End: May 28, 2025 Yin Rosales NP, PHYSICIAN RELATIONS REPRESENTATIVE-C Referring Provider Active Start: May 28, 2025 End: May 28, 2025 Team Status: Active Member Role/Relationship Status Bartolo Carey MD Primary care physician Active S tart: June 12, 2025 Joe Carey MD Attending physician Active Star t: June 12, 2025 Joe Carey MD Referring Provider Active Start : June 12, 2025 Team Status: Inactive Member Role/Relationship Status Bartolo Carey MD Primary care physician Active S tart: July 07, 2025 End: July 07, 2025 Dr. Price Madden MD Attending physician Active S tart: July 07, 2025 End: July 07, 2025 Dr. Price Madden MD Referring Provider Active St art: July 07, 2025 End: July 07, 2025 Team Status: Inactive Member Role/Relationship Status Bartolo Carey MD Primary care physician Active S tart: August 01, 2025 End: August 01, 2025 Dr. Grzegorz Jamison DO Attending physician Active Start: August 01, 2025 End: August 01, 2025 Dr. Grzegorz Jamison DO Emergency Departme nt Physician Active Start: August 01, 2025 End: August 01, 2025 Team Status: Inactive Member Role/Relationship Status Dates Dr. Kyara Odonnell MD Referring Provider Active Start: August 26, 2025 End: August 26, 2025 Debra GODFREY PA Attending physician Active Start: August 26, 2025 End: August 26, 2025 Jeo Carey MD Primary care physician Active S tart: August 26, 2025 End: August 26, 2025 Team Status: Active Member Role/Relationship Status Dates Joe Carey MD Primary care physician Active S tart: August 26, 2025 Debra GODFREY PA Attending physician Active Start: August 26, 2025 Debra GODFREY, PA Referring Provider Active Start: August 26, 2025 Team Status: Inactive Member Role/Relationship Status Dates Joe Carey MD Primary care physician Active S tart: September 02, 2025 End: September 02, 2025 Dr. Virgil Bazzi DO Emergency Department Physician A ctive Start: September 02, 2025 End: September 02, 2025 INFORMATION SOURCE (unrecogn ized section and content) DATE CREATED AUTHOR 09/08/2025 [facility] DATE CREATED AUTHOR AUTHOR'S ORGANIZ ATION 09/12/2025 [facility] DATE CREATED AUTHOR AUTHOR'S CATARINO ATION 09/13/2025 [facility] FOR RECORDS PERTAINING TO PATIENTS WHO ARE [...] BE BASED ON THE PRIMARY CLINICAL RECORDS. [facility] [employer] [facility]. provides no warranty or guarantee of the accuracy or completeness of information in this document.
[2025-09-14 16:20] VITALS: BP 134/80; PULSE 74; RESP 16; TEMP 36.5; O2SAT 98; BMI 22.8
--- NOTE | 2025-09-14 16:56 | NURSING ---
Patient admit to Rehab and aware of rehab routine. Patient confirmed DNR and verbalized understanding.
[2025-09-14 17:13] VITALS: O2SAT 96
--- NOTE | 2025-09-14 17:13 | CPS ---
Pt brought her I.S. from [facility] and showed me how well she does. This RT stopped the order so pt doesn't get charged for another device and communicated this to RN.
--- NOTE | 2025-09-14 21:03 | HP.PCM_ITS ---
[facility] - General General Date of Admission: 09/14/25 Date of Service: 09/15/25 Chief Complaint: Here for 3 hours daily rehabilitation. HPI Narrative BOBBY LOVE, is a 84 Female who presents with followin09/07/2025 [facility] ED weakness. Unable to walk, headache, confusion. Head trauma 08/01/2025, CT head negative. 09/02/2025 X-ray showed S5 compression fracture. Difficulty walking x 2 days, global headache. CT head subacute/acute SDH. Transfer to [facility]. 09/07/2025 Admit [facility]. Consult Neurosurgery. Neurochecks every 1 hour, NPO, IV fluids. Hold Aspirin, Hold Lovenox. repeat CTH in 6 hours. 09/08/2025 Dr. Bui performed bilateral michael hole evacuation of SDH. 09/09/2025 MMA embolization. 09/10/2025 CT head acute interval bleeding in left surgical bed. 09/11/2025 No acute events overnight, Feels good, minimal headache. Tolerating diet. No Keppra per neurosurgery. Hold Lovenox, Hold, Aspirin. PT/OT/MANAGER CONSTRUCTION, SBP < 160. Regular diet. Tylenol PRN, Oxycodone PRN pain. SCD, OOB DVT prophylaxis. 09/14/2025 Admit to for 3 hours daily rehabilitation, strengthening, prior to discharge home with . [facility] Medical History (Updated 09/15/25 @ 00:00 by Background Daemon) Abnormal bruising Myocardial infarct Essential hypertension Unstable angina Sensorineural hearing loss Dehydration Hypokalemia HLD (hyperlipidemia) Vertigo Intractable nausea and vomiting Home Medications Medication Instructions Recorded Last Taken Type glucosamine sulfate 2KCl 500 mg 1,000 mg PO BID supple ment 02/15/14 08/01/25 History capsule (Glucosamine Relief) multivitamin with folic acid 400 1 tab PO DAILY supple ment 02/15/14 08/01/25 History mcg tablet (Thera) losartan 100 mg tablet 100 mg PO QHS Pt going out o f 12/05/23 08/01/25 Rx state for 3 months #90 tabs calcium carbonate (Calcium 600) 600 mg PO DAILY vitami n 06/19/24 08/01/25 Hi story cholecalciferol (vitamin D3) 25 25 mcg PO DAILY vitami n 06/19/24 08/01/25 History mcg (1,000 unit) tablet collagen 1,000 mg PO BID supp 4 08/01/25 History vitamin E 670 mg (1,000 unit) 670 mg PO DAILY supp 08/01/25 History capsule hydrochlorothiazide 12.5 mg tablet 12.5 mg PO DAILY bp #90 tabs 03/27/25 08/01/25 Rx phytosterol 300 mg-pantethine 100 1 cap PO BID supp Unknown History mg capsule (CholestOff Complete) nitroglycerin 0.4 mg sublingual 0.4 mg sublingual Q5M PRN Chest 08/26/25 Unknown Rx tablet pain #30 tabs cyanocobalamin (vitamin B-12) 500 500 mcg PO DAILY sup p 09/14/25 Unknown History mcg tablet melatonin 3 mg tablet 9 mg PO QHS sleep 09/14/25 U nknown History metoprolol succinate 25 mg 25 mg PO DAILY bp 09/14/25 Unknown History tablet,extended release 24 hr niacinamide 50 mg tablet 180 mg PO DAILY supp 5 Unknown History Allergy/AdvReac Type Severity Reaction Status Date / Time Iezvlth-RMW-IzW Reductase Allergy Severe Pain in Verified 09/07/25 16:54 Inhibitor joints Penicillins Allergy Unknown Verified 09/07/25 16:54 metoprolol AdvReac Intermediate Other Verified 09/07/25 16:54 Family History Sister Pacemaker Father CVA (cerebral vascular accident) Surgical History (Updated 09/14/25 @ 21:[address] Josh Dukes MD) History of michael hole surgery History of cholecystectomy History of coronary artery stent placement (12/09/22) H/O: hysterectomy Social History (Updated 09/14/25 @ 21:[address] Josh Dukes MD) household members: spouse Smoking Status: Never smoker alcohol intake: never substance use type: does not use caffeine: No ROS Constitutional Constitutional: Reports weakness; Denies chills, fever(s) or weight gain ENT HEENT: Denies headache(s), nasal congestion or nasal discharge Cardiovascular Cardiovascular: Denies chest pain or palpitations Respiratory/Chest Respiratory/Chest: Denies cough, excessive phlegm production or shortness of breath with exertion Gastrointestinal Gastrointestinal: Denies abdominal pain, nausea or vomiting Genitourinary Genitourinary: Denies dysuria Musculoskeletal Musculoskeletal: Denies joint pain or joint swelling Integumentary Integumentary: Denies rash or wounds Neurologic Neurologic: Denies focal weakness, numbness or tingling Psychiatric Psychiatric: Denies anxiety, auditory hallucinations, depression, homicidal ideation or suicidal ideation Vital Signs Vital Signs Vital Signs: 09/14/25 16:20 09/14/25 16:48 09/14/25 17:13 Temperature 97.7 F L Temperature Source Temporal Pulse Rate 74 Respiratory Rate 16 Respiratory Effort Normal Non-Labored Respiratory Depth Normal Respiratory Pattern Normal Blood Pressure 134/80 H Blood Pressure Mean 98 Blood Pressure Source Monitor Blood Pressure Position Semi-Fowlers Blood Pressure Location Left Arm Pulse Ox 98 96 Oxygen Delivery Method Room Air Room Air Room Air Weight Weight: 51.256 kg Body Mass Index (BMI) 22.8 Physical Exam Const alert General Appearance: cooperative HEENT normocephalic Eyes PERRL and EOMs intact bilaterally Neck supple, no JVD and no carotid bruits Resp normal respiratory effort, normal air movement and clear to auscultation bila terally Cardio regular rate and regular rhythm GI normal to inspection, nondistended, normoactive bowel sounds, non-tender and non-distended Extremity normal capillary refill General Extremity: Negative for edema Skin no rashes or lesions noted General Skin Exam: no breakdown Neuro moves all extremities Psych affect normal Appearance: appropriate Assessment & Plan Assessment/Plan (1) Debility: (2) Closed head injury: (3) SDH (subdural hematoma): (4) CAD (coronary artery disease): (5) Essential hypertension: (6) Vitamin D deficiency: PLAN: Plan 84 year old female with below past medical history hospitalized for SDH, underwent bilateral michael hole evacuation, MMA embolization, admitted to for 3 hours daily rehabilitation, strengthening, prior to discharge home with . * Debility - PT/OT/ST. * Pain - Tylenol 650mg q6 prn. * Bowel - senna/colace 2 tablets bid, Dulcolax 10mg pr x1 prn, MOM 30mL po x 1 prn. * Adult immunization - Administer pneumonia vaccine, covid vaccine, flu vaccine as appropriate. * DVT prophylaxis - Hold, SDH. * Skin irritation - Bacitracin ointment topical tid. * Calcium deficiency - Calcium 500mg daily. * Vitamin D deficiency - D3 25mcg daily. * Vitamin B12 deficiency - B12 500mcg daily. * Hypertension - Metoprolol succinate 25mg daily, Losartan 100mg daily, HCTZ 12.5mg daily. * Insomnia - Melatonin 9mg qhs. * Nutrition - MVI 1 tablet daily. * CAD - Metoprolol succinate 25mg daily, Losartan 100mg daily, NTG 0.4mg sl q5m prn, Hold Aspirin 2/2 SDH. * Vitamin E deficiency - Vitamin E 800IU daily.
[2025-09-14 22:00] VITALS: PULSE 74; RESP 16; O2SAT 98
[2025-09-15 06:00] VITALS: BP 129/69; PULSE 76; RESP 16; TEMP 36.4; O2SAT 99
[2025-09-15 07:51] LABS: Hematocrit 35.6 % (37-47); Hemoglobin 11.8 g/dL (12.0-15.0); Mean Corp Hgb Conc 33.1 g/dL (32-36); Mean Corpuscular Volume 94.2 fL (81-99); Mean Platelet Vol. 8.8 fl (6.2-12.0); Platelet Count 317 K/mm3 (150-450); RBC Distribution Width CV 14.0 % (11.6-14.6); RBC Distribution Width SD 48.0 fl (35.1-43.9); Red Blood Count 3.78 M/mm3 (4.2-5.4); White Blood Count 7.2 K/mm3 (4.4-11.0)
[2025-09-15] MEDS: Cholecalciferol (VIT D3) 25 MCG TABLET (1,000 UNITS) PO (08:07)
[2025-09-15 08:08] VITALS: BP 129/69; PULSE 76
[2025-09-15] MEDS: Metoprolol(XL)Succ 25 MG Tablet PO (08:08)
[2025-09-15 08:16] LABS: AST(SGOT) 22 U/L (<=31); Alanine Aminotransfer ALT/SGPT 8 U/L (<=34); Albumin, Serum 4.2 g/dL (3.4-4.8); Alkaline Phosphatase 84 U/L (35-104); Anion Gap 10 (5-15); BUN 19 mg/dL (4-19); BUN/Creat Ratio 24.4 RATIO (10-20); Calcium,Total 9.0 mg/dL (7.6-11.0); Carbon Dioxide 24.0 mmol/L (21.0-32.0); Chloride 104 mmol/L (98-108); Estimated Creatinine Clearance 38.94 ml/min (50-250); Globulin 2.7 g/dL (2.2-4.2); Glucose 94 mg/dL (70-99); Magnesium 2.6 mg/dL (1.5-2.2); Potassium 3.9 mmol/L (3.3-5.1)
[2025-09-15 08:48] VITALS: RESP 17; O2SAT 96
[2025-09-15] MEDS: Calcium (Elemental) 500 MG Tablet PO (12:31)
[2025-09-15 16:39] VITALS: BP 133/80; PULSE 74; RESP 16; TEMP 36.6; O2SAT 97
--- NOTE | 2025-09-15 19:12 | REHABEVAL_ITS ---
Admission Information Primary Diagnosis:: SDH Status Changes from Prescreening?: No changes Identified Actual Problem List:: Falls, Mobility Impaired, Self Care Deficit, Ineffective Communication, Know.Dfct/Disease Process, Know.Dfct of Medicaitons and Alteration-Leisure Activ. Potential Problem List:: DVT, Bleeding, Infection, UTI, Aspiration, Falls, Skin Integrity and Depression Risk of Complications DVT: LMWH, JASON Hose and Sequential Compression Device Bleeding: Monitor Lab Values, Nursing to Teach Precautions for anti-coagulation therapy., Wound, if applicable, to be assessed every shift. and Stroke patients assessed for lethargy or change in status. Infection: Clinical Staff to Monitor for S/S of infection: and S/S of infection include fever, redness, warmth, etc. Urinary Tract Infection: Monitor for frequency, burning, discomfort, or incontinence. and Nursing will obtain urine sample for urinalysis and C&S when ordered. Aspiration: Clinical staff will monitor for coughing, drooling, congestion., Speech will evaluate swallowing and dsyphasia. and Nursing will monitor patient swallowing during meals. Falls: Patient will be evaluated for Fall Precautions and Patient will be placed on Fall Precautions as indicated per protocol. Skin Breakdown: Nursing will assess skin daily using assessment tool. and Nursing will place on Skin Breakdown Precautions as indicated. Pain: Clinical staff will assess patient's pain level per protocol., Medications will be given, if needed, and the pain level reassessed. and Other methods: Massage, distraction, decrease stimulus, etc. used PRN. Plan of Care Patient requires physician specializing in physical medicine and rehab oversight to provide close medical supervision of rehab issues including: Pain Management, Sleep Problems, Bowel and Bladder, Medical and co-morbidity Management, DVT prophylaxis, Rehabilitation Leadership and Coordination of treatment team Patient needs Physical Therapy: For a minimum of 1 hour and At least 5 out of 7 days Patient needs Physical Therapy to improve:: Mobility, Strengthening, Transfers, Stretching, ROM, Endurance, Stairs, Gait and Balance Patient needs Occupational Therapy: For a minimum of 1 hour and At least 5 out of 7 days Patient needs Occupational Therapy to improve ADL's incl.: Eating, Grooming, Bathing, Dressing, Toileting, Toilet transfers, Community Reintegration, Higher functioning activities, Household tasks, Adaptive Equipment, Splinting and Other activities as determined Patient requires speech therapy: For a minimum of 1 hour and At least 5 out of 7 days Patient requires speech therapy for: Swallowing, Cognition, Language Skills and Compensatory Strategies Patient requires 24/7 Rehabilitation Nursing for: Pain Issues, Identifying and preventing risk factors, Monitoring and reporting current medical conditions, A ssisting with ambulation, transfer, and all ADL's, Teaching patients about disease process and medications, Family teaching, Providing safe environment, Bowel and Bladder Issues, Skin integrity and Medication Management Patient needs Dry Cell Assembly Machine Tender/ Case Management for: Discharge Planning, Arranging Home Equipment or Services and Family Interventions Patient needs Dietary and Nutrition Services for: Adequate Nutrition, Nutritional Supplements and Nutritional Education Goals Goals Patient will remain: free from falls and or injury at time of discharge. Patient will complete transfers from bed to chair at: - (Independent.) Patient will ambulate: - (>1500 feet without AD at I.) Patient will complete upper body dressing at: MOD I level of assist. (with AE) Patient will complete lower body dressing at: MOD I level of assist. (with AE) Patient will complete toilet transfer at: MOD I level of assist. Patient will complete toileting at: MOD I level of assist. Patient will perform bathing at: MOD I level of assist. (with AE.) Patient will complete home management skills at: MOD I level of assist. Patient will achieve: - (1 step with HR @ Independent.) Patient will have pain level of: of 3 or less Patient's skin will: remain intact and free from infection. Patient will receive: adequate nutrition. Discharge Planning Pt Prognosis for Sig. Practical Improv. w/in Reasonable Time: Good Estimated Length of stay (days): 14 Anticipated D/C Destination: Home with Outpt Therapy Was Preadmission Assessment Accurate?: Yes
[2025-09-15 22:00] VITALS: PULSE 74; RESP 16; O2SAT 97
[2025-09-16 06:00] VITALS: BP 134/74; PULSE 81; RESP 15; TEMP 36.4; O2SAT 97
[2025-09-16] MEDS: Cholecalciferol (VIT D3) 25 MCG TABLET (1,000 UNITS) PO (07:41)
[2025-09-16 07:42] VITALS: PULSE 81
[2025-09-16] MEDS: Metoprolol(XL)Succ 25 MG Tablet PO (07:42)
--- NOTE | 2025-09-16 08:33 | PN.REHAB_ITS ---
Subjective Subjective Patient seen, examined. She finished breakfast, she is sitting up in bed. No acute events overnight, no new complaints. She appears well, alert, attentive. She did say Melatonin too strong and makes her groggy the next day, asked me to stop it, will discontinue. Objective Data Objective Data Vital Signs: Vital Signs Temp Pulse Resp BP Pulse Ox O2 Del Method 97.5 F L 81 15 134/74 H 97 Room Air 09/16/25 06:00 09/16/25 07:42 09/16/25 06:00 09/16/25 06:00 09/16/25 06:00 09/16/25 06:00 Oxygen Delivery Method Room Air Weight: 51.256 kg Body Mass Index (BMI) 22.8 Intake & Output: Intake and Output for Last 24 Hours 09/14/25 09/15/25 09/16/25 23:59 23:59 23:59 Intake Total 784 / 784 1720 / 1720 670 / 670 Output Total 150 / 150 3050 / 3050 800 / 800 Balance 634 / 634 -1330 / -1330 -130 / -130 Lab / Micro Data 09/15/25 07:25 09/15/25 07:25 Indicators for Scoring Admitted with or Primary Diagnosis of CVA/Stroke: No Hx of CVA/Stroke: No Physical Exam Const alert General Appearance: cooperative HEENT normocephalic Eyes PERRL and EOMs intact bilaterally Neck supple, no JVD and no carotid bruits Resp normal respiratory effort, normal air movement and clear to auscultation bilaterally Cardio regular rate and regular rhythm GI normal to inspection, nondistended, normoactive bowel sounds, non-tender and non-distended Extremity normal capillary refill General Extremity: Negative for edema Skin no rashes or lesions noted General Skin Exam: no breakdown Neuro moves all extremities Psych affect normal Appearance: appropriate Assessment & Plan Assessment/Plan (1) Debility: (2) Closed head injury: (3) SDH (subdural hematoma): (4) CAD (coronary artery disease): (5) Essential hypertension: (6) Vitamin D deficiency: PLAN: Plan 84 year old female with below past medical history hospitalized for SDH, underwent bilateral michael hole evacuation, MMA embolization, admitted to for 3 hours daily rehabilitation, strengthening, prior to discharge home with . * Debility - PT/OT/ST. * Pain - Tylenol 650mg q6 prn. * Bowel - senna/colace 2 tablets bid, Dulcolax 10mg pr x1 prn, MOM 30mL po x 1 prn. * Adult immunization - Administer pneumonia vaccine, covid vaccine, flu vaccine as appropriate. * DVT prophylaxis - Hold, SDH. * Skin irritation - Bacitracin ointment topical tid. * Calcium deficiency - Calcium 500mg daily. * Vitamin D deficiency - D3 25mcg daily. * Vitamin B12 deficiency - B12 500mcg daily. * Hypertension - Metoprolol succinate 25mg daily, Losartan 100mg daily, HCTZ 12.5mg daily. * Insomnia - Melatonin 9mg makes her too groggy, stop Melatonin. * Nutrition - MVI 1 tablet daily. * CAD - Metoprolol succinate 25mg daily, Losartan 100mg daily, NTG 0.4mg sl q5m prn, Hold Aspirin 2/2 SDH. * Vitamin E deficiency - Vitamin E 800IU daily.
[2025-09-16] MEDS: Calcium (Elemental) 500 MG Tablet PO (12:15)
[2025-09-16 18:00] VITALS: BP 132/70; PULSE 67; RESP 17; TEMP 36.8; O2SAT 98
[2025-09-16 22:00] VITALS: RESP 16; O2SAT 96
[2025-09-17 05:03] VITALS: BP 129/68; PULSE 75; RESP 16; TEMP 36.8; O2SAT 98
[2025-09-17 05:18] VITALS: BMI 22.8
[2025-09-17 07:56] VITALS: PULSE 75
[2025-09-17] MEDS: Cholecalciferol (VIT D3) 25 MCG TABLET (1,000 UNITS) PO (07:56)
[2025-09-17] MEDS: Metoprolol(XL)Succ 25 MG Tablet PO (07:56)
[2025-09-17] MEDS: Senna/Docusate Sodium 1 Tablet 2 TABLET PO ×2 (07:57→21:27)
[2025-09-17] MEDS: Calcium (Elemental) 500 MG Tablet PO (08:05)
--- NOTE | 2025-09-17 08:06 | NURSING ---
calcium does time changed to 0800 p/pt request. this is time she takes at home
--- NOTE | 2025-09-17 08:27 | PN.REHAB_ITS ---
Subjective Subjective Patient seen, examined. She is sitting up in chair. She has no new complaints, slept well last night. She said therapy really wiped her out yesterday, but in a good way. Objective Data Objective Data Vital Signs: Vital Signs Temp Pulse Resp BP Pulse Ox O2 Del Method 98.2 F 75 16 129/68 H 98 Room Air 09/17/25 05:03 09/17/25 07:56 09/17/25 05:03 09/17/25 05:03 09/17/25 05:03 09/17/25 05:03 Oxygen Delivery Method Room Air Weight: 51.3 kg Body Mass Index (BMI) 22.8 Intake & Output: Intake and Output for Last 24 Hours 09/15/25 09/16/25 09/17/25 23:59 23:59 23:59 Intake Total 1720 / 1720 2370 / 2370 450 / 450 Output Total 3050 / 3050 1900 / 1900 1000 / 1000 Balance -1330 / -1330 470 / 470 -550 / -550 Lab / Micro Data 09/15/25 07:25 09/15/25 07:25 Indicators for Scoring Admitted with or Primary Diagnosis of CVA/Stroke: No Hx of CVA/Stroke: No Physical Exam Const alert General Appearance: cooperative HEENT normocephalic Eyes PERRL and EOMs intact bilaterally Neck supple, no JVD and no carotid bruits Resp normal respiratory effort, normal air movement and clear to auscultation bilaterally Cardio regular rate and regular rhythm GI normal to inspection, nondistended, normoactive bowel sounds, non-tender and non-distended Extremity normal capillary refill General Extremity: Negative for edema Skin no rashes or lesions noted General Skin Exam: no breakdown Neuro moves all extremities Psych affect normal Appearance: appropriate Assessment & Plan Assessment/Plan (1) Debility: (2) Closed head injury: (3) SDH (subdural hematoma): (4) CAD (coronary artery disease): (5) Essential hypertension: (6) Vitamin D deficiency: PLAN: Plan 84 year old female with below past medical history hospitalized for SDH, underwent bilateral michael hole evacuation, MMA embolization, admitted to for 3 hours daily rehabilitation, strengthening, prior to discharge home with . * Debility - PT/OT/ST. * Pain - Tylenol 650mg q6 prn. * Bowel - senna/colace 2 tablets bid, Dulcolax 10mg pr x1 prn, MOM 30mL po x 1 prn. * Adult immunization - Administer pneumonia vaccine, covid vaccine, flu vaccine as appropriate. * DVT prophylaxis - Hold, SDH. * Skin irritation - Bacitracin ointment topical tid. * Calcium deficiency - Calcium 500mg daily. * Vitamin D deficiency - D3 25mcg daily. * Vitamin B12 deficiency - B12 500mcg daily. * Hypertension - Metoprolol succinate 25mg daily, Losartan 100mg daily, HCTZ 12.5mg daily. * Insomnia - Slept well without Melatonin. * Nutrition - MVI 1 tablet daily. * CAD - Metoprolol succinate 25mg daily, Losartan 100mg daily, NTG 0.4mg sl q5m prn, Hold Aspirin 2/2 SDH. * Vitamin E deficiency - Vitamin E 800IU daily.
--- NOTE | 2025-09-17 16:04 | CHAPLAIN ---
Type of Pastoral Visit _x__ Initial Visit ___ Follow-up Visit ___ On-call Visit ___ General Patient Visit ___ Spiritual Assessment ___ Family Conference ___ Bereavement ___ Rapid Response ___ Code Blue ___ Other (describe below) Pastoral Care Referral From _x__ Patient ___ Family ___ Nurse ___ Physician ___ Seater Grinder ___ Glue Mounter Operator ___ Other (describe below) Sacrament/Intervention _x__ Active listening ___ Anointing ___ Hinduism ___ Bereavement ___ Communion _x__ Eveline exploration ___ _x__ Life review _x__ Prayer ___ Reconciliation ___ Sacrament of Sick ___ Supportive presence ___ Wedding ___ Other (describe below) Pastoral Comments patient presents self as a very active and energetic person who had a fall with a brain bleed of which she is now recovering in therapy; pt is happy to talk about her eveline and her life; pt knows people that this rack pusher knows and that builds a bridge to talk and have enjoyable conversation; pt has several family members with health needs and she requests a prayer for the same; pt is optimistic about going home and doing well; pt is active in her sikh and with eveline in God; prayer is welcomed
[2025-09-17 18:00] VITALS: BP 112/42; PULSE 78; RESP 16; TEMP 36.7; O2SAT 97
[2025-09-17 20:04] VITALS: RESP 16; O2SAT 98
[2025-09-18 06:00] VITALS: BP 121/74; PULSE 84; RESP 16; TEMP 36.5; O2SAT 98
[2025-09-18 07:55] VITALS: PULSE 84
[2025-09-18] MEDS: Calcium (Elemental) 500 MG Tablet PO (07:55)
[2025-09-18] MEDS: Metoprolol(XL)Succ 25 MG Tablet PO (07:55)
[2025-09-18] MEDS: Senna/Docusate Sodium 1 Tablet 2 TABLET PO (07:55)
[2025-09-18] MEDS: Cholecalciferol (VIT D3) 25 MCG TABLET (1,000 UNITS) PO (07:56)
--- NOTE | 2025-09-18 11:23 | PCM.PROGNOTE ---
Subjective Subjective Sharon was seen on team rounds today. 2 of her daughters and her were present in the room. All questions were answered to their satisfaction. Afebrile VSS - Maintaining appropriate oxygen saturation on RA Oral intake - FOOD good FLUIDS good Discussed with nursing - no problems that need addressed Reviewed the THERAPY notes Medication list reviewed. Antihypertensives include losartan 100 mg daily, metoprolol XL 25 mg daily and hydrochlorothiazide 12.5 mg daily. Admitted to acute inpatient rehab on 09/14/2025. Was admitted to [facility] On 09/07/2025 for subdural hematoma related to head trauma that occurred on 08/01/2025 (fell when on her treadmill). On 09/02/2025 she had an x-ray that showed a S5 compression fracture. On 09/08/2025 she had bilateral bur holes for evacuation of subdural hematoma and on 09/09/2025 had MMA embolization by interventional radiology. EMR since admission was personally reviewed including progress notes, imaging and all labs. Hemoglobin on 08/06/2025 was mildly decreased at 11.8. GFR is 78 but the estimated creatinine clearance is only 39. Having some vertigo. She has a long hx of BPPV and has had therapy for it in the past. Used to take Meclizine but, she no longer takes this.......she has exercises she does and she takes deni to help her sx. She also has a hx of ocular migraines......." kaleidoscope" colors in the R eye that last 10-15 minutes.....no associated CALDERÓN. they seem to be more frequent since her fall off the treadmill at [facility]. She is not sleeping well....... this predates the recent events. Can not take Melatonin.......it "winds her up". Has never tried anything else. She denies chest pain, palpitations, shortness of breath, cough, nausea/vomiting/abdominal pain, dysuria and calf tenderness. Has never had a history of DVT. She tells me that she thinks she is improving and she is glad that she is here. She has 4 children, 3 girls and 1 boy. She lives with her in [place]. She regularly exercises at [facility]. Objective Data Objective Data Vital Signs: Vital Signs Temp Pulse Resp BP Pulse Ox O2 Del Method 97.7 F L 84 16 121/74 H 98 Room Air 09/18/25 06:00 09/18/25 07:55 09/18/25 06:00 09/18/25 06:00 09/18/25 06:00 09/18/25 06:00 Oxygen Delivery Method Room Air Weight: 113 lb 1.554 oz Body Mass Index (BMI) 22.8 Intake & Output: Intake and Output for Last 24 Hours 09/16/25 09/17/25 09/18/25 23:59 23:59 23:59 Intake Total 2370 / 2370 1910 / 2150 840 / 840 Output Total 1900 / 1900 1450 / 1700 1250 / 1250 Balance 470 / 470 460 / 450 -410 / -410 Lab / Micro Data 09/15/25 07:25 09/15/25 07:25 Physical Exam Const alert, oriented x3, no apparent distress and well nourished Constitutional Narrative: Talkative, appropriate. Pleasant. HEENT moist oral mucous membranes Eyes Eyes Narrative: No nystagmus. Neck supple Resp normal respiratory effort, normal air movement and clear to auscultation bilaterally Resp Narrative: Excellent air entry. Has never been a smoker. Effort and Inspection: Negative for tachypneic Cardio regular rate, regular rhythm and no gallops Cardio Narrative: No ectopy GI normal to inspection, nondistended, normoactive bowel sounds, soft to palpation and non-tender GI Narrative: No guarding with palpation. Extremity no calf tenderness General Extremity: Negative for edema Skin Wound Narrative: The small incisions for the EVD are healing with no dehiscence, no rita-incisional erythema and no discharge. No significant rita-incisional edema. Neuro CN's II-XII intact bilaterally and no focal motor deficits Psych thought process normal and affect normal Appearance: appropriate Attitude: No agitated Activity / Motor Behavior: Negative for restless Assessment & Plan Assessment/Plan (1) Debility: (2) Closed head injury: QUALIFIERS: Encounter type: subsequent encounter Qualified Code(s): S09.90XD - Unspecified injury of head, subsequent encounter PLAN: Due to a fall off the back of a treadmill. (3) Mild TBI (traumatic brain injury): QUALIFIERS: Encounter type: subsequent encounter Loss of consciousness presence/duration: without LOC Qualified Code(s): S06.9X0D - Unspecified intracranial injury without loss of consciousness, subsequent encounter PLAN: Vertigo, cognitive dysfunction and cephalgia. (4) SDH (subdural hematoma): (5) History of michael hole surgery: (6) CAD (coronary artery disease): QUALIFIERS: Coronary Disease-Associated Artery/Lesion type: [place] artery [place] vs. transplanted heart: saxman heart Associated angina: without angina Qualified Code(s): I25.10 - Atherosclerotic heart disease of [place] coronary artery without angina pectoris (7) Vitamin D deficiency: (8) HLD (hyperlipidemia): QUALIFIERS: Hyperlipidemia type: unspecified Qualified Code(s): E78.5 - Hyperlipidemia, unspecified (9) BPPV (benign paroxysmal positional vertigo): QUALIFIERS: Laterality: unspecified laterality Qualified Code(s): H81.10 - Benign paroxysmal vertigo, unspecified ear (10) Essential hypertension: (11) Atherosclerotic heart disease of sax[place] coronary artery without angina pectoris: QUALIFIERS: [place] vs. transplanted heart: saxman heart Qualified Code(s): I25.10 - Atherosclerotic heart disease of [place] coronary artery without angina pectoris (12) History of coronary artery stent placement: (13) Chronic insomnia: PLAN: Plan 1. Continue therapy 2. Trazodone 50 mg p.o. nightly at 2100. 3. Making good progress with therapy. Still having some CALDERÓN's, vertigo and cognitive dysfunction. would like to continue therapy for Monday and Monday and DC home Monday with OP PT/ST at [facility]. If the Trazodone is effective for sleep will continue at [facility]. Charges/Coding Visit Charges Inpatient E&M: 30059 Subs Hosp L2
--- NOTE | 2025-09-18 13:00 | CASEMGMT ---
Social Work IDT met with patient, and two dtr's for Team meeting. Discussed patient's progress in PT/OT/ST/SN/MD. Educated to [facility] insurance with [employer] 09/19 and continued stay is not guaranteed with each review. Pt is excelling greatly in therapy. IDT offered to set a DC date and continue with outpatient therapy. Pt is scheduled to get her stitched removed on 09/[address] recommends pt remaining until Monday to get stitches removed. SW to update insurance and request DC date. SW inquired about OP therapy preference. Pt prefers [facility]. SW to coordinate for PT/ST. No DME needs. Family said they can drive pt. 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
[2025-09-18 17:24] VITALS: BP 121/67; PULSE 71; RESP 16; TEMP 36.8; O2SAT 99
[2025-09-19 05:36] VITALS: BP 136/75; PULSE 76; RESP 16; TEMP 36.5; O2SAT 97
[2025-09-19 07:44] VITALS: PULSE 76
[2025-09-19] MEDS: Metoprolol(XL)Succ 25 MG Tablet PO (07:44)
[2025-09-19] MEDS: Calcium (Elemental) 500 MG Tablet PO (07:44)
[2025-09-19] MEDS: Cholecalciferol (VIT D3) 25 MCG TABLET (1,000 UNITS) PO (07:45)
--- NOTE | 2025-09-19 12:14 | DS.PCM_ITS ---
Providers Date of Admission: 09/14/25 Date of Discharge: 09/21/25 Primary Care Physician: Joe Merino MD Reason For Visit: SDH Diagnosis Discharge Diagnosis (1) Debility: Status: Acute Code(s): R53.81 - Other malaise Plan: *Continue with PT and ST outpatient. (2) Closed head injury: Status: Acute Code(s): S09.90XA - Unspecified injury of head, initial encounter Qualifiers: Encounter type: subsequent encounter Qualified Code(s): S09.90XD - Unspecified injury of head, subsequent encounter Plan: Follow-up with neurosurgery as scheduled HOBE 30* no lifting or pulling >8lbs (3) Mild TBI (traumatic brain injury): Status: Acute Code(s): S06.9XAA - Unspecified intracranial injury with loss of consciousness status unknown, initial encounter Qualifiers: Encounter type: subsequent encounter Loss of consciousness presence/duration: without LOC Qualified Code(s): S06.9X0D - Unspecified intracranial injury without loss of consciousness, subsequent encounter Plan: Continue with outpatient therapies Follow-up with primary care and neurosurgery as scheduled (4) SDH (subdural hematoma): Status: Acute Code(s): S06.5XAA - Traumatic subdural hemorrhage with loss of consciousness status unknown, initial encounter Plan: Continue with outpatient therapies Follow-up with PCP and neurosurgery as scheduled (5) History of michael hole surgery: Status: Acute Code(s): Z98.890 - Other specified postprocedural states Plan: Continue with outpatient therapies Follow-up with PCP and neurosurgery as scheduled (6) CAD (coronary artery disease): Status: Acute Code(s): I25.10 - Atherosclerotic heart disease of [place] coronary artery without angina pectoris Qualifiers: Coronary Disease-Associated Artery/Lesion type: [place] artery [place] vs. transplanted heart: [place] heart Associated angina: without angina Q ualified Code(s): I25.10 - Atherosclerotic heart disease of [place] coronary artery without angina pectoris Plan: Continue home medications (7) Vitamin D deficiency: Status: Acute Code(s): E55.9 - Vitamin D deficiency, unspecified Plan: Continue home medications (8) HLD (hyperlipidemia): Status: Acute Code(s): E78.5 - Hyperlipidemia, unspecified Qualifiers: Hyperlipidemia type: unspecified Qualified Code(s): E78.5 - Hyperlipidemia, unspecified Plan: Continue home medications (9) BPPV (benign paroxysmal positional vertigo): Status: Acute Code(s): H81.10 - Benign paroxysmal vertigo, unspecified ear Qualifiers: Laterality: unspecified laterality Qualified Code(s): H81.10 - Benign paroxysmal vertigo, unspecified ear Plan: Continue use of homeopathic deni as needed. fall precautions (10) Essential hypertension: Status: Chronic Code(s): I10 - Essential (primary) hypertension Plan: continue home medications (11) Atherosclerotic heart disease of [place] coronary artery without angina pectoris: Status: Acute Code(s): I25.10 - Atherosclerotic heart disease of [place] coronary artery without angina pectoris Qualifiers: [place] vs. transplanted heart: [place] heart Qualified Code(s): I25.10 - Atherosclerotic heart disease of [place] coronary artery without angina pectoris Plan: continue home medications (12) History of coronary artery stent placement: Status: Acute Code(s): Z95.5 - Presence of coronary angioplasty implant and graft Plan: continue home medications (13) Chronic insomnia: Status: Chronic Code(s): F51.04 - Psychophysiologic insomnia Plan: Prescription sent to the patient's home pharmacy for trazodone 50 mg p.o. at 2100 may utilize 1 or 2 tablets melatonin 10mg PO at 1700 teaching of relaxation techniques and guided imagery Medications at Discharge Home Medications glucosamine sulfate 2KCl 500 mg capsule (Glucosamine Relief) 1,000 mg PO BID supplement 02/15/14 multivitamin with folic acid 400 mcg tablet (Thera) 1 tab PO DAILY supplement 02/15/14 losartan 100 mg tablet 100 mg PO QHS Pt going out of state for 3 months #90 tabs 12/05/23 calcium carbonate (Calcium 600) 600 mg PO DAILY vitamin 06/19/24 cholecalciferol (vitamin D3) 25 mcg (1,000 unit) tablet 25 mcg PO DAILY vitamin 06/19/24 collagen 1,000 mg PO BID supp 06/19/24 vitamin E 670 mg (1,000 unit) capsule 670 mg PO DAILY supp 06/19/24 hydrochlorothiazide 12.5 mg tablet 12.5 mg PO DAILY bp #90 tabs 03/27/25 phytosterol 300 mg-pantethine 100 mg capsule (CholestOff Complete) 1 cap PO BID supp 03/27/25 nitroglycerin 0.4 mg sublingual tablet 0.4 mg sublingual Q5M PRN Chest pain #30 tabs 08/26/25 cyanocobalamin (vitamin B-12) 500 mcg tablet 500 mcg PO DAILY supp 09/14/25 metoprolol succinate 25 mg tablet,extended release 24 hr 25 mg PO DAILY bp 09/14/25 niacinamide 50 mg tablet 180 mg PO DAILY supp 09/14/25 melatonin 3 mg tablet 9 mg (3 x 3 mg) PO QHS sleep 7 days #21 tabs 09/19/25 trazodone 50 mg tablet 100 mg (2 x 50 mg) PO 2100 PRN Sleep 7 days #14 tabs 09/19/25 Physical Exam Const alert, oriented x3 and no apparent distress Constitutional Narrative: Making good eye contact, appropriate General Appearance: cooperative and comfortable Orientation / Consciousness: awake, oriented to person, oriented to place and oriented to time Exam Limitations: no limitations HEENT moist oral mucous membranes HEENT Narrative: Cogswell to be removed on 09/21/2025. Head and Scalp: other Other Details: Jacinta to the left lateral frontal area. Cogswell to right lateral frontal area to be removed on Monday Face and Sinus: normal facial exam Nose: external nose normal Mouth: oral and palatal mucosa normal Eyes PERRL General Eye: normal appearance of both eyes Neck no lymphadenopathy, supple, no JVD and no carotid bruits Resp normal respiratory effort, no use of accessory muscles and clear to auscultation bilaterally Resp Narrative: Not tachypneic and no conversational dyspnea. Cardio regular rate, regular rhythm, S1 normal heart sound, S2 normal heart sound, no murmurs, no rub and no gallops GI normal to inspection, nondistended, normoactive bowel sounds and non-tender GI Narrative: No guarding with palpation. Back/Spine Back/Spine Narrative: S5 compression fracture noted on x-ray 09/02/2025 Extremity no clubbing, cyanosis or edema Extremity Narrative: Negative Nitin's and Maida's signs Skin Skin Narrative: No rashes, no skin breakdown. Wound Narrative: Surgical incisions to bilateral frontal lobes on the lateral aspect. Cogswell are intact. Wounds are well-approximated. Jacinta will be removed before discharge on 09/21/2025. Neuro oriented x3, CN's II-XII intact bilaterally, moves all extremities and no focal motor deficits Neuro Narrative: Does have history of (BPPV) vertigo and utilizes deni to assist with her symptoms. Sensorium / Orientation: awake, alert, oriented to person, oriented to place and oriented to time Motor Exam: strength 5/5 throughout Psych affect normal Psych Narrative: Appropriate, making good eye contact. Able to stay on topic and focus. No flight of ideas. Does not appear anxious or depressed. Conversant and relating well to staff. Weight / BMI Weight Weight: 113 lb 1.554 oz Body Mass Index (BMI) 22.8 ABG / Lab / Microbiology Data 09/15/25 07:25 09/15/25 07:25 Indicators for Scoring Admitted with or Primary Diagnosis of CVA/Stroke: No Hx of CVA/Stroke: No Modified Nettie Score MRS Score at time of Evaluation: 2-Slight disability NIHSS NIHSS 1a. Level of Consciousness: 0 - Alert; keenly responsive 1b. LOC Questions: 0 - Answers BOTH questions correctly 1c. LOC Commands: 0 - Performs BOTH tasks correctly 2. Best Gaze: 0 - Normal 3. Visual: 0 - No visual loss 4. Facial Palsy: 0 - Normal symmetrical movements 5a. Left Arm: 0 - No drift; arm holds 90 (or 45) degrees for full 10 seconds 5b. Right Arm: 0 - No drift; arm holds 90 (or 45) degrees for full 10 seconds 6a. Left Le - No drift; leg holds 30-degree position for full 5 seconds 6b. Right Le - No drift; leg holds 30-degree position for full 5 seconds 7. Limb Ataxia: 0 - Absent 8. Sensory: 0 - Normal; no sensory loss 9. Best Language: 0 - No aphasia; normal 10. Dysarthria: 0 - Normal 11. Extinction and Inattention: 0 - No abnormality Total: 0 D/C Instructions Diet Diet Order/Speech Therapy: INPATIENT Hospital Diet / Speech Therapy Order(s) 09/14/25 16:28 Diet: Regular - General Discharge order: Continue INPATIENT Hospital Diet / Speech Therapy Orders: Yes Discharge Activity: May Not Drive (for 3 days while taking narcotic pain medications.) and May Shower Call your doctor if your incision/area has: Continuous Slow Oozing, Sudden Increased Bleeding, Increased Pain/ Swelling, Increased Redness, Foul Smelling Discharge and Swelling at the incision site Call your doctor if you observe: Fever of 101 or Higher, Numbness or Tingling, Shortness of breath, Dizziness, Fainting spells, Calf discomfort and Uncontrolled pain Suture Line Care: Avoid Pulling/Pushing and Avoid Pinching/Bending DC O2, CPAP, BIPAP Needs Home O2 Discharge instructions: No When: as scheduled with PCP and Neuro Meaningful Use Info Meaningful Use Meaningful Use Diagnoses (Choose all that apply): None applicable Ischemic Stroke Statin Dosing Therapy Reference: STATIN DOSE THERAPY REFERENCE: * Patients > 75 years receive moderate or high dose statin therapy. * Patients 75 years or YOUNGER should receive HIGH intensity statin dose unless contraindicated. You will be required to document reason for non-treatment if statin daily dose does not meet guidelines. HIGH DOSE STATIN THERAPY DAILY Atorvastatin > than or = to 40 mg Rosuvastatin > than or = to 20 mg Amlodipine + Atorvastatin > than or = to 2.5/40 mg Ezetimibe + Simvastatin 10/80 mg Simvastatin 80mg Discharge Plan Admission Admit Date/Time: 09/14/25 15:50 Primary Reason for Your Visit: subdural hematoma Attending Provider: Nelli Augirre Primary Care Provider: Joe Merino Consulting Providers: Josh Dukes Chi Discharge Orders/Prescriptions Prescriptions: New trazodone 50 mg Tablet 100 mg PO 2100 PRN (Reason: Sleep) 7 Days Qty: 14 0RF Rx Instructions: may take 1 or 2 tablets at bedtime for sleep Continued calcium carbonate [Calcium 600] 600 mg calcium (1,500 mg) tablet 600 mg PO DAILY collagen 1,000 mg PO BID cholecalciferol (vitamin D3) 25 mcg (1,000 unit) tablet 25 mcg PO DAILY vitamin E 670 mg (1,000 unit) capsule 670 mg PO DAILY nitroglycerin 0.4 mg tablet, sublingual 0.4 mg sublingual Q5M PRN (Reason: Chest pain) Qty: 30 1RF CholestOff Complete 300-100 mg capsule 1 cap PO BID Glucosamine Relief 500 MG capsule 1,000 mg PO BID Patient Comments: VITAMIN/HERB multivitamin with folic acid [Thera] 1 TABLET tablet 1 tab PO DAILY Patient Comments: VITAMIN cyanocobalamin (vitamin B-12) 500 mcg tablet 500 mcg PO DAILY niacinamide 50 mg tablet 180 mg PO DAILY metoprolol succinate 25 mg tablet extended release 24 hr 25 mg PO DAILY melatonin 3 mg tablet 9 mg PO QHS 7 Days Qty: 21 0RF Rx Instructions: take medication at 5pm losartan 100 mg tablet 100 mg PO QHS Qty: 90 3RF hydrochlorothiazide 12.5 mg tablet 12.5 mg PO DAILY Qty: 90 3RF Referrals / Follow Up: Vivian Atkins [Other, Neurosurgery] - 10/02/25 11:15 am Referral Note: Joe Negro NP, MD [Primary Care Provider, Family Practice] Disposition Disposition (needs filled in before D/C Order can be placed): Home, Self Care Charges/Coding Visit Charges Inpatient E&M: 63535 Disch Hosp >30min Hospital Course RU Operations None and - (michael holes at [facility] on 09/08/25, MMA embolization ) Procedures None Summary of Care Provided Minutes Spent on Discharge: 90
[2025-09-19] MEDS: MELATONIN 10 MG TABLET PO (16:54)
[2025-09-19 17:48] VITALS: BP 109/83; PULSE 77; RESP 16; TEMP 36.9; O2SAT 98
[2025-09-19] MEDS: Senna/Docusate Sodium 1 Tablet 2 TABLET PO (21:16)
[2025-09-19 21:25] VITALS: BP 121/61; PULSE 74; RESP 18
[2025-09-20 05:53] VITALS: BP 126/69; PULSE 74; RESP 16; TEMP 36.8; O2SAT 97
[2025-09-20] MEDS: Calcium (Elemental) 500 MG Tablet PO (08:29)
[2025-09-20 08:30] VITALS: PULSE 75
[2025-09-20] MEDS: Metoprolol(XL)Succ 25 MG Tablet PO (08:30)
[2025-09-20] MEDS: Senna/Docusate Sodium 1 Tablet 2 TABLET PO ×2 (08:30→21:03)
[2025-09-20] MEDS: Cholecalciferol (VIT D3) 25 MCG TABLET (1,000 UNITS) PO (08:30)
[2025-09-20 08:34] VITALS: BP 116/69; PULSE 75
[2025-09-20] MEDS: MELATONIN 10 MG TABLET PO (17:39)
[2025-09-20 18:00] VITALS: BP 106/64; PULSE 69; RESP 17; TEMP 36.8; O2SAT 100
[2025-09-21 06:00] VITALS: BP 123/69; PULSE 78; RESP 16; TEMP 36.7; O2SAT 99
--- NOTE | 2025-09-21 06:44 | NURSING ---
Removed sutures from incisions x4 on pts head. Pt tolerated well. All incisions well approximated. No bleeding noted. Pt instructed on signs and symptoms of infection to report to . Pt verbalizes understanding.
[2025-09-21 08:00] VITALS: PULSE 72
[2025-09-21] MEDS: Metoprolol(XL)Succ 25 MG Tablet PO (08:00)
[2025-09-21] MEDS: Cholecalciferol (VIT D3) 25 MCG TABLET (1,000 UNITS) PO (08:00)
[2025-09-21] MEDS: Calcium (Elemental) 500 MG Tablet PO (08:01)
[2025-09-21 08:02] VITALS: BP 130/52; PULSE 72
== END 2025-09-21 13:28 | disposition home or self-care (01) | DRG 950 ==
PROVIDERS: Admitting Provider Family Medicine Geriatric Medicine; PCP Family Medicine; Visit Provider Internal Medicine
DX: S06.5XAD Traumatic subdural hemorrhage with loss of consciousness status unknown, subsequent encounter (principal); S32.19XD Other fracture of sacrum, subsequent encounter for fracture with routine healing; E53.8 Deficiency of other specified B group vitamins; I10 Essential (primary) hypertension; I25.10 Atherosclerotic heart disease of native coronary artery without angina pectoris; E55.9 Vitamin D deficiency, unspecified; E78.5 Hyperlipidemia, unspecified; H81.10 Benign paroxysmal vertigo, unspecified ear; E56.0 Deficiency of vitamin E; W17.89XD Other fall from one level to another, subsequent encounter; Z79.899 Other long term (current) drug therapy; F51.04 Psychophysiologic insomnia; Z95.5 Presence of coronary angioplasty implant and graft; Z98.890 Other specified postprocedural states
CPT/HCPCS: 36415; 80053; 83735; 84100; 85027; 92507; 97110; 97112; 97116; 97161; 97167; 97530; 97535

== ENCOUNTER 2025-09-25 14:16 | Outpatient (RCR) | payer MEDICARE, SELFPAY ==
[2022-12-19 10:30] VITALS: BMI 23.4
--- NOTE | 2025-09-25 16:00 | HP.PTEVAL_ITS ---
Patient's Visit Information Visit Information Visit Information: BOBBY LOVE is a 84 year old F referred to Physical Therapy by Dr. Nelli Aguirre DO with a diagnosis of SDH. Date of Evaluation: 09/25/25 Physical Therapist: Roshan Graham, PT, Cert MDT, OCS Visit Plan Frequency: 2x /Week Duration: 4 Weeks Plan: PT INTERVENTIONS PROGRESSIVE BALANCE TRAINING ,FUNCTIONAL STRENGTHENING ,ENDURANCE PROGRAM AND BLE STRENGTHENING Subjective Subjective: This 84 y/o female presents to physical therapy with subdural hematoma. Patient fell of treadmill working Aug 01. Intally ,went to ER vai . Patient intal CT and [facility] was negative due to apparent slow bleed. Sep 01 fell on buttock . Went to ER later that night and imaging.Then went home . But the rest of weak started to loss mobility and cognition . Eventually ER Sep [address] and showed hematoma. Life flighted to [facility] , Seen Neurosurgeon and did michael holes to drainage on Sep 08 . Then MMAE ,embolization procedure. Patient to transferred to [facility] 4TH Rehab Sep 14 . Patient was in Rehab for ~ 1week PT/OT/Speech.Sep 21. Patient has some dizziness but from migraines . Most recently ,Neurosurgeon Sep [address] scan but left side of brain there is more fluid competed to previous CT . Sep RTD and repeat CT to determine if needed drain again . No falls. Patient has some dizziness but from migraines. Patient has CALDER[place]N left side where fluid is collecting.Patient has some problem finding worse and passage time. No weakness. Patient able to bath dress self. Microwave and out to dinner. Walk in shower seat and grab bars. Sleeping good. Patient get tired throughout the day. Patient condition affects QOL and function. Goal to RETURN TO [facility] SOCIAL: VOCATION: RETIRED Objective Objective: POSTURE: mild forward posture GAIT: reciprocal pattern no LOB NEURO: denies paresthesia/tingling FLEXABILITY: hamstrings min tight BALANCE: tandem walking min assist STAIRS: alternating with rails MMT: quads/hams 4/5 ,hip flexion 4/5 ,hip abduction 4-/5 ,ankle 4/5 ,BUE 4/5 COORDINATION: EC touch nose WFL Balance/Special Test Scores Functional Gait Assessment Score: 23 % Disability: 23.3400 Lower Extremity Functional Score: 39 Goals Goal 1:: Patient to be I with HEP for balance and strengthening Goal Time Frame: 4-6 Weeks Goal 2:: Patient to improve CATSIBE by 5-points to improve balance Goal Time Frame: 4-6 Weeks Goal 3:: Patient to improve functional gait assessment score by 5 points to improve balance Goal Time Frame: 4-6 Weeks Goal 4:: Patient to improve LFES score by 5 -10 points to improve QOL and function. Goal Time Frame: 4-6 Weeks Rehabilitation Potential Physical Therapy Diagnosis: This patient fell and over time developed subdural hematoma with decrease high level balance and deconditioned thus benefit from skilled PT Rehabilitation Potential: Good Anticipated Interventions Patient/Client Instruction: Educate patient on: Condition and Plan of Care For the Purpose of:: To increase oxygenation perfusion, To improve muscle performance and motor function, To increase tolerance to activity/condition/position, To improve ability of physical actions for home/community/work/leisure, To improve gait and locomotor functions, To increase flexibility/ROM, To improve endurance, To improve balance and To improve tolerance to ADL's Therapeutic Exercise to Include: Strength training, Power training, Endurance training, Balance training and Gait and locomotor training Comment: BLE For the Purpose of:: To improve muscle performance and motor function, To improve ability to perform ADL's, To increase tolerance to activity/condition/position, To improve performance and independence with ADL's, To improve ability of physical actions for home/community/work/leisure, To improve gait and locomotor functions, To improve endurance, To improve balance, To reduce risk of recurrence and To improve tolerance to ADL's Text: Thank you for the opportunity to evaluate your patient. For Medicare and Medicare HMO plans, please review the plan of care and approve it. It will need to be FAXED BACK to us at [phone] for Medicare purposes. For Medicare only, by signing this I certify the plan of care. Please let me know if there are questions or concerns regarding this plan of care. Physician Signature: Date:
--- NOTE | 2025-09-26 12:19 | HP.SP.EVAL ---
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 Other Relevant Medical History/Diagnoses/Surgery: Sharon Dent is an 84F who was referred to [facility] outpatient speech therapy for an evaluation of cognitive impairment. She has a PMHX of SDH, which she was hospitalized for on 08/01/25-09/15/25, and underwent bilateral michael hole evacuation, MMA embolization, and was admitted to for 3 hours daily rehabilitation. She is living with her , but has additional assistance from her daughter as needed. Both daughter and were present this date for evaluation, with daughter being the primary historian. Medications related to this diagnosis: calcium carbonate [Calcium 600] 600 mg calcium (1,500 mg) tablet, cholecalciferol (vitamin D3) 25 mcg (1,000 unit) tablet, CholestOff Complete 300-100 mg capsule, collagen, cyanocobalamin (vitamin B-12) 500 mcg tablet, Glucosamine Relief 500 MG capsule, hydrochlorothiazide 12.5 mg tablet, losartan 100 mg tablet, melatonin 3 mg tablet, metoprolol succinate 25 mg tablet extended release 24 hr, multivitamin with folic acid [Thera] 1 TABLET tablet, niacinamide 50 mg tablet, nitroglycerin 0.4 mg tablet, trazodone 50 mg Tablet, vitamin E 670 mg (1,000 unit) capsule Smoking Status: Never smoker 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 Pain Is pain an issue with your current prescribed condition?: No Personal Preferred language: Japanese Patient Allergies Allergies Allergies: Allergies Mtbeuta-YMH-[id number] Reductase Inhibitor Allergy (Severe, Verified 09/07/25 16:54) Pain in joints pt gets generalized severe pain Penicillins Allergy (Verified 09/07/25 16:54) Unknown metoprolol Adverse Reaction (Intermediate, Verified 09/07/25 16:54) Other dizziness CLQT CLQT CLQT Administered: Yes CLQT: Cognitive Linguistic Quick Test (CLQT) is a criterion - referenced assessment designed for adults between the ages of 18 and 89 with known or suspected neurological dysfuntions. The CLQT is to assess strength and weaknesses in five cognitive domains. Severity ratings are within normal limits, mild, moderate, severe deficits. The subtests are as follows: Date: 09/26/25 Attention Attention: WNL Memory Memory: Mild Executive Functions Executive Functions: WNL Language Language: WNL Visuospatial Skills Visuospatial Skills: WNL Composite Severity Rating Composite Severity Rating: WNL Clock Drawing Severity Rating Clock Drawing Severity Rating: WNL CLQT Comments -: -: Attention: 169 (WNL) Memory: 136 (Mild) Executive Functions: 19 (WNL) Language: 28 (WNL) Visuospatial Skills: 73 (WNL) Clock Drawin (WNL) Reference: Neuro-QoL instrument Radiation Oncology Patient Plan Plan Plan: At this time, it is recommended that Sharon participates in skilled speech therapy to target a mild cognitive deficit in the area of memory. Participating in interventions will aid in improving her ability to function independently, as well as increase her overall quality of life. Recommendations Treatment Warranted: Yes Treatment Warranted: Receptive/ Expressive Language and Cognition Progress Prognosis: Excellent Frequency Frequency: 1x/Week Duration: 6 Months Visits in this POC: 26 Patient/Family Goal Patient/Family Goal: To improve her memory abilities Goals that are Established Determination:: Goals will be added/modified as deemed necessary and appropriate. Therapy will be discontinued when results of re-evaluation indicate therapy is no longer needed or lack of progress has been documented. Goal #1-5 Goal #1: Pt will complete basic to mod complex immediate, short-term, and working memory tasks with 90% acc independently across 3 measured opportunities. Goal #2: Pt will modify environment at home via implementing memory compensatory strategies within 3 weeks' time of their initial evaluation. Education Patient has Indicated that the Following Identified Educational Needs: None The Patient has indicated that they have no educational or learning abilities that may effect their care.: Yes Patient Instruction Patient Education: Diagnosis, Treatment Plan and Goals Person Taught: Patient and Primary Caregiver Teaching Method: Discussion Response to teaching: Verbalize Understanding
== END 2025-09-25 19:00 | disposition home or self-care (01) ==
LOC: PT 14:16
PROVIDERS: PCP Family Medicine; Referring Provider Internal Medicine; Visit Provider Internal Medicine
DX: S06.5X0D Traumatic subdural hemorrhage without loss of consciousness, subsequent encounter (principal); F80.2 Mixed receptive-expressive language disorder
CPT/HCPCS: 92523; 97162